=== PATIENT | male | born 1945 | race Caucasian/White ===

== ENCOUNTER → 2018-04-09 11:52 | Outpatient (CLI) | payer MEDICARE, OTHER, SELFPAY ==
[2018-04-09 13:16] LABS: PSA,Total - Annual Screen 3.54 ng/mL (0.00-4.00)
== END ==
PROVIDERS: Family Provider Internal Medicine; PCP Internal Medicine; Referring Provider Radiology Radiation Oncology; Visit Provider Radiology Radiation Oncology
DX: Z12.5 Encounter for screening for malignant neoplasm of prostate (principal); Z85.46 Personal history of malignant neoplasm of prostate
CPT/HCPCS: 36415; 84153; G0103

== ENCOUNTER → 2018-08-27 08:51 | Outpatient (CLI) | payer MEDICARE, OTHER, SELFPAY ==
--- NOTE | 2018-08-27 08:54 | US_ITS ---
STUDY: THYROID ULTRASOUND REASON FOR EXAM: Male, 73 years old. Nodules. TECHNIQUE: Ultrasound evaluation of the thyroid was performed with real-time and static fernandez-scale imaging. COMPARISON: 06/17/2017. FINDINGS: RIGHT LOBE: The right lobe of the thyroid gland measures 3.5 x 1.2 x 2.2 cm. There is a heterogeneous echotexture. Solid mildly hypoechoic nodule with hypoechoic rim measuring 0.9 x 0.8 x 0.7 cm. Small anechoic cyst measuring 0.5 x 0.4 x 0.3 cm. Small solid hypoechoic nodule measuring 0.5 x 0.4 x 0.4 cm. LEFT LOBE: The left lobe of the thyroid gland measures 4.7 x 2.1 x 2.1 cm. There is a heterogeneous echotexture. 2 solid nodules measuring 1.2 x 1.0 x 0.7 cm, 0.8 x 1.0 x 0.6 cm. Small anechoic cyst measuring 0.3 x 0.4 x 0.2 cm. ISTHMUS: The isthmus measures 0.6 cm. . US/Thyroid IMPRESSION: 1. 2 solid nodules in each thyroid lobe. 2. Small anechoic cyst in each thyroid lobe. 3. Allowing for differences in technique, these are most likely unchanged. They are too small for ultrasound-guided FNA. 4. No significant interval change when compared to 06/17/2017. Electronically Signed: Ren Couch MD at 14:34 EST , Service support ,
== END ==
PROVIDERS: Family Provider Internal Medicine; PCP Internal Medicine; Referring Provider Internal Medicine; Visit Provider Internal Medicine
DX: E04.1 Nontoxic single thyroid nodule (principal)
CPT/HCPCS: 76536

== ENCOUNTER → 2019-05-03 11:09 | Outpatient (CLI) | payer MEDICARE, OTHER, SELFPAY ==
[2019-03-30 14:25] VITALS: BMI 34.9
[2019-05-03 12:30] LABS: PSA,Total- Diagnostic 4.79 ng/mL (0.0-4.0)
== END ==
PROVIDERS: Family Provider Internal Medicine; PCP Internal Medicine; Referring Provider Urology; Visit Provider Urology
DX: C61 Malignant neoplasm of prostate (principal); R97.20 Elevated prostate specific antigen [PSA]
CPT/HCPCS: 36415; 84153

== ENCOUNTER → 2019-07-16 15:44 | Outpatient (CLI) | payer MEDICARE, OTHER, SELFPAY ==
[2019-03-30 14:25] VITALS: BMI 34.9
[2019-06-29 16:01] VITALS: BMI 34.9
[2019-07-12 13:04] LABS: Creatinine, Serum 1.66 mg/dL (0.70-1.30); EST Glomerular Filtration Rate 43 mL/min (>60); Est Glom Filt Rate - Afr Amer 52 mL/min (>60)
--- NOTE | 2019-07-16 15:48 | CT_ITS ---
STUDY: CT ABDOMEN AND PELVIS WITH CONTRAST REASON FOR EXAM: Male, 73 years old. HX-PROSTATE CA 7 YRS AGO, NOW HAS ELEV PSA, DB, HTN, PREV LT KIDNEY CA WITH LT NEPHRECTOMY, BLADDER CA WITH TUMOR REMOVAL, HAD BRACHYTHERAPY FOR PROSTATE CA, HAD ONE TIME CHEMO INJECTION FOR BLADDER CA RADIATION DOSAGE (If Supplied By Facility): CTDIvol = ( 28.72 ) mGy, DLP = ( 1946.44 ) mGycm TECHNIQUE: Transaxial images were obtained from the dome of the diaphragm to the symphysis pubis with oral contrast. IV 75mL Isovue-300 AND ORAL CONTRAST was administered. Sagittal and coronal images were reconstructed. Individualized dose optimization techniques were used for this CT. COMPARISON: 01/30/2016 FINDINGS: The visualized lung bases are unremarkable. The visualized portions of the heart are within normal limits. Normal liver. There are surgical clips in the gallbladder fossa consistent with a prior cholecystectomy. Normal spleen. Normal pancreas. Normal bilateral adrenal glands. Normal right kidney. Left kidney is absent. Normal visualized stomach. Normal small intestine. There are multiple colonic diverticula consistent with diverticulosis. The appendix is visualized and appears normal. There is diffuse atherosclerotic calcification of the abdominal aorta with elongation and tortuosity, but without a demonstrated aneurysm. Normal inferior vena cava. Normal retroperitoneum. Nondistended urinary bladder. There are metallic implants in the prostate gland. No periprostatic mass/adenopathy. Normal abdominal wall. There are diffuse degenerative changes of the visualized lumbar spine. CT/Abdomen/Pelvis WITH Contrast IMPRESSION: 1. Trace bilateral pleural effusions, new. 2. No intra-abdominal/pelvic mass/adenopathy. 3. Cholecystectomy. 4. Metallic implants in the prostate gland. 5. Diverticulosis without evidence of diverticulitis. Electronically Signed: Parminder Vu MD ([place]) at 16:56 EST , Service support ,
--- NOTE | 2019-07-16 15:49 | CT_ITS ---
STUDY: CT CHEST WITH CONTRAST REASON FOR EXAM: Male, 73 years old. HX-PROSTATE CA 7 YRS AGO, NOW HAS ELEV PSA, DB, HTN, PREV LT KIDNEY CA WITH LT NEPHRECTOMY, BLADDER CA WITH TUMOR REMOVAL, HAD BRACHYTHERAPY FOR PROSTATE CA, HAD ONE TIME CHEMO INJECTION FOR BLADDER CA RADIATION DOSAGE (If Supplied By Facility): CTDIvol = ( 28.72 ) mGy, DLP = ( 1946.44 ) mGycm TECHNIQUE: Transaxial imaging was performed following intravenous administration of IV 100mL Isovue-300. Multiplanar coronal and sagittal images were reformatted. Individualized dose optimization techniques were used for this CT. COMPARISON: None. FINDINGS: No pulmonary nodule or mass. Benign calcified granuloma in the left upper lobe. Mild centrilobular emphysematous changes particularly of the upper lung zones. There are small bilateral pleural effusions. Normal heart and pericardium. There are calcifications of the coronary arteries. Mildly enlarged lymph nodes of the middle mediastinum identified. Station 7 subcarinal lymph node measures 1.3 cm in short axis. Normal hilar regions. Normal enhanced pulmonary arteries. There is atherosclerotic calcification of the aortic arch with tortuosity and elongation of the aortic arch and descending thoracic aorta. There are multi-level degenerative changes of the thoracic spine and shoulders. Upper abdomen described on abdomen/pelvis CT report. CT/Chest WITH Contrast IMPRESSION: 1. No pulmonary nodule/mass. 2. Mild middle mediastinal adenopathy measuring up to 1.3 cm in short axis. Electronically Signed: Parminder Vu MD ([place]) at 16:59 EST , Service support ,
== END ==
PROVIDERS: Family Provider Internal Medicine; PCP Internal Medicine; Referring Provider Radiology Radiation Oncology; Visit Provider Radiology Radiation Oncology
DX: C61 Malignant neoplasm of prostate (principal); R97.21 Rising PSA following treatment for malignant neoplasm of prostate; Z01.818 Encounter for other preprocedural examination
CPT/HCPCS: 36415; 71260; 74177; 82565; Q9967

== ENCOUNTER → 2019-07-20 10:05 | Outpatient (CLI) | payer MEDICARE, OTHER, SELFPAY ==
[2019-03-30 14:25] VITALS: BMI 34.9
[2019-06-29 16:01] VITALS: BMI 34.9
--- NOTE | 2019-07-20 10:06 | NM_ITS ---
CLINICAL: 73-year-old male with history of carcinoma of the prostate. WHOLE BODY 99m Tc MDP RADIONUCLIDE BONE SCINTIGRAPHY COMPARISON: CT of the chest, abdomen and pelvis reports 07/16/2019 FINDINGS: Following the intravenous administration of 20.0 mCi of 99m Tc MDP, whole body bone images reveal: 1. Increased radiopharmaceutical concentration is identified in the acromioclavicular and sternoclavicular compartments of both shoulders, lower cervical spine posteriorly on the left and right, the seventh and 11th thoracic vertebra posteriorly on the right, fourth-fifth lumbar vertebra and sacrum, bilateral wrist articulations, right-left knees, ankles bilaterally. 2. The remaining skeletal structures are scintigraphically unremarkable with normal-appearing renal images and urinary bladder activity identified. NM/Bone Scan Whole Body IMPRESSION: 1. The increased radiopharmaceutical concentration identified in the bilateral shoulders, cervical, thoracic and lumbar spine, sacrum, both wrist articulations, right and left knees, ankles bilaterally is most consistent with degenerative arthritis. 2. There is no definitive typical scintigraphic evidence of skeletal metastatic disease on the current examination. Electronically Signed: Jewel Zamora DO at 8:57 EST Tel , Service support ,
== END ==
PROVIDERS: Family Provider Internal Medicine; PCP Internal Medicine; Referring Provider Radiology Radiation Oncology; Visit Provider Radiology Radiation Oncology
DX: C61 Malignant neoplasm of prostate (principal); R97.21 Rising PSA following treatment for malignant neoplasm of prostate
CPT/HCPCS: 78306

== ENCOUNTER → 2019-09-07 10:05 | Outpatient (CLI) | payer MEDICARE, OTHER, SELFPAY ==
[2019-06-29 16:01] VITALS: BMI 34.9
[2019-09-07 12:16] LABS: Absolute Lymphocyte Count 1.44 X10^3/uL (0.83-4.51); Absolute Neutrophil Count 3.4 X10^3/uL (2.0-7.7); Basophil# 0.05 X10^3/uL; Basophil% 0.9 % (0-1); Eosinophil# 0.17 X10^3/uL; Hematocrit 40.7 % (40-54); Hemoglobin 12.5 g/dL (13.0-16.5); Lymphocyte # 1.44 X10^3/ul (4.0); Lymphocyte % 25.4 % (19-41); Mean Corp Hgb Conc 30.7 g/dL (32-36); Mean Corpuscular Hgb 26.9 pg (27.0-32.0); Mean Corpuscular Volume 87.7 fL (80-94); Mean Platelet Vol. 11.6 fl (6.2-12.0); Monocyte# 0.56 X10^3/uL; Monocyte% 9.9 % (0-10); NRBC Flagged by Analyzer 0 % (0-5); Neutrophil # 3.44 X10^3/uL (2.7-7.7); Neutrophil % 60.4 % (47-70); Platelet Count 162 K/mm3 (150-450); RBC Distribution Width CV 16.5 % (11.6-14.6); RBC Distribution Width SD 52.3 fl (35.1-43.9); Red Blood Count 4.64 M/mm3 (4.6-6.2); White Blood Count 5.7 K/mm3 (4.4-11.0)
[2019-09-07 12:35] LABS: Hemoglobin A1c 6.3 % (4.2-6.3)
[2019-09-07 12:39] LABS: ALB/GLOB Ratio 0.9 RATIO (0.9-2.4); AST(SGOT) 21 U/L (15-37); Alanine Aminotransfer ALT/SGPT 32 U/L (16-61); Albumin, Serum 3.7 g/dL (3.2-5.0); Alkaline Phosphatase 72 U/L (45-117); Anion Gap 7 (5-15); BUN 28 mg/dL (7-18); BUN/Creat Ratio 15.8 RATIO (10-20); Chloride 107 mmol/L (98-107); Cholesterol 105 mg/dL (200); Creatinine, Serum 1.77 mg/dL (0.70-1.30); EST Glomerular Filtration Rate 40 mL/min (>60); Est Glom Filt Rate - Afr Amer 49 mL/min (>60); Glucose 119 mg/dL (74-106); High Density Lipoprotein 33 mg/dL; Protein, Total 7.7 g/dL (6.4-8.2); Sodium Level 139 mmol/L (136-145); Triglycerides 175 mg/dL; Very Low Density Lipoprotein 35 mg/dL (5-40)
[2019-09-07 12:53] LABS: Microalbumin:Creatinine Ratio 633.7 mg/g CRE (<30 mg/g CRE)
== END ==
PROVIDERS: PCP Internal Medicine; Referring Provider Internal Medicine; Visit Provider Internal Medicine
DX: I10 Essential (primary) hypertension (principal); E11.9 Type 2 diabetes mellitus without complications; C64.9 Malignant neoplasm of unspecified kidney, except renal pelvis
CPT/HCPCS: 36415; 80053; 80061; 82043; 82570; 83036; 85025

== ENCOUNTER → 2019-10-19 15:38 | Outpatient (CLI) | payer MEDICARE, OTHER, SELFPAY ==
[2019-10-19 09:05] VITALS: BMI 34.9
[2019-10-19 16:26] LABS: Absolute Lymphocyte Count 1.46 X10^3/uL (0.83-4.51); Basophil# 0.04 X10^3/uL; Basophil% 0.6 % (0-1); Eosinophil# 0.25 X10^3/uL; Hematocrit 43.7 % (40-54); Hemoglobin 13.6 g/dL (13.0-16.5); Lymphocyte # 1.46 X10^3/ul (4.0); Lymphocyte % 23.3 % (19-41); Mean Corp Hgb Conc 31.1 g/dL (32-36); Mean Corpuscular Hgb 26.7 pg (27.0-32.0); Mean Corpuscular Volume 85.9 fL (80-94); Monocyte# 0.54 X10^3/uL; Monocyte% 8.6 % (0-10); NRBC Flagged by Analyzer 0 % (0-5); Neutrophil # 3.95 X10^3/uL (2.7-7.7); Platelet Count 136 K/mm3 (150-450); RBC Distribution Width CV 16.1 % (11.6-14.6); RBC Distribution Width SD 50.3 fl (35.1-43.9); Red Blood Count 5.09 M/mm3 (4.6-6.2); White Blood Count 6.3 K/mm3 (4.4-11.0)
[2019-10-19 16:38] LABS: Anion Gap 6 (5-15); BUN 28 mg/dL (7-18); BUN/Creat Ratio 16.9 RATIO (10-20); Calcium,Total 8.9 mg/dL (8.5-10.1); Chloride 110 mmol/L (98-107); Creatinine, Serum 1.66 mg/dL (0.70-1.30); EST Glomerular Filtration Rate 43 mL/min (>60); Est Glom Filt Rate - Afr Amer 52 mL/min (>60); Glucose 109 mg/dL (74-106); Potassium 4.6 mmol/L (3.5-5.1); Sodium Level 139 mmol/L (136-145)
== END ==
PROVIDERS: PCP Internal Medicine; Referring Provider Internal Medicine; Visit Provider Internal Medicine
DX: C64.9 Malignant neoplasm of unspecified kidney, except renal pelvis (principal); N18.3 Chronic kidney disease, stage 3 (moderate)
CPT/HCPCS: 80048; 85025

== ENCOUNTER → 2019-11-08 11:53 | Outpatient (CLI) | payer MEDICARE, OTHER, SELFPAY ==
[2019-10-19 16:44] VITALS: BMI 34.9
[2019-11-08 13:32] LABS: PSA,Total- Diagnostic 5.45 ng/mL (0.0-4.0)
== END ==
PROVIDERS: PCP Internal Medicine; Referring Provider Urology; Visit Provider Urology
DX: R97.20 Elevated prostate specific antigen [PSA] (principal)
CPT/HCPCS: 36415; 84153

== ENCOUNTER → 2019-11-25 08:00 | Outpatient (CLI) | payer MEDICARE, OTHER, SELFPAY ==
[2019-10-19 16:44] VITALS: BMI 34.9
--- NOTE | 2019-11-25 | IMM_PTH ---
PATIENT: SHERRELL GENAO LOC: [facility] U#:[id number] AGE/SX: 79/M ROOM: RE11/25/[address]: Dr. Burak Borja MD : 1945 BED: DIS: SPEC #: [id number] RECD: 11/29/19 09:54 STATUS: OSMAR REQ #: [id number] KIKO: 11/25/19 00:[address]: Burak Borja DEPT: IMMUNOHISTOCHEMISTRY RECD BY: Deja Batres ENTERED: 11/29/19 09:57 SP TYPE: IMMUNO OTHR DR: Dr. Josh Schreiber MD Tissues: A - PROSTATE RIGHT B - PROSTATE RIGHT C - PROSTATE RIGHT D - PROSTATE LEFT E - PROSTATE LEFT Procedures: CK8 (add) 34BE12 (add) Pankeratin (initial) Pankeratin (add) P40 (add) PHYSICIAN & INSTITUTION [place] [id number] SPECIMEN INFORMATION: Tissue Source: A - Right apex, B - Right mid, C - Right base, D - Left apex, E - Left mid, Clinical Info: Elevated PSA Specimen Number: [id number] CPT code: 81087, 90809 x19 METHODOLOGY: Deparaffinized sections of prefer/formalin-fixed tissue or PAP/DQ stained slides are incubated with monoclonal/polyclonal antibodies/oligonucleotide probes. Localization is made via biotin free immunoperoxidase method. Appropriate controls are performed and reacted as expected. Results on target cell population are indicated in the following table: RESULTS: ANTIBODY / CLONE RESULT Block A AE1-3 (AE1/AE3/PCK26) positive CK8 (89rvquP74) positive 34BE12 (34BE12) positive P40 (BC28) positive Block B AE1-3 (AE1/AE3/PCK26) positive CK8 (50gvvqV18) positive 34BE12 (34BE12) positive P40 (BC28) positive Block C AE1-3 (AE1/AE3/PCK26) positive CK8 (96elcaL02) positive 34BE12 (34BE12) positive P40 (BC28) positive Block D AE1-3 (AE1/AE3/PCK26) positive CK8 (79bdqtA83) positive 34BE12 (34BE12) positive P40 (BC28) positive Block E AE1-3 (AE1/AE3/PCK26) positive CK8 (67iblqC83) positive 34BE12 (34BE12) positive P40 (BC28) positive These tests were developed and their performance characteristics determined by [facility]. They may not have been cleared or approved by the U.S. Food and Drug Administration. The FDA has determined that such clearance or approval is not necessary. The above immunohistochemical/dualISH markers are ordered and reviewed by the Pathologist. INTERPRETATION: A. Right prostate, apex, core biopsy: Negative for carcinoma. B. Right prostate, mid, core biopsy: Negative for carcinoma. C. Right prostate, base, core biopsy: Negative for carcinoma. D. Left prostate, apex, core biopsy: Negative for carcinoma. E. Left prostate, mid, core biopsy: Negative for carcinoma. SJ:regis 11/30/19
--- NOTE | 2019-11-25 | PROSBIL_PTH ---
PATIENT: SHERRELL GENAO LOC: [facility] U#:[id number] AGE/SX: 79/M ROOM: RE11/25/[address]: Dr. Burak Borja MD : 1945 BED: DIS: SPEC #: [id number] RECD: 11/25/19 17:54 STATUS: OSMAR RENikko #: [id number] KIKO: 11/25/19 00:[address]: Burak Borja DEPT: SURGICAL PATHOLOGY RECD BY: Chapincito Carlson ENTERED: 11/26/19 11:54 SP TYPE: PROST BX BRENDA DR: Dr. Josh Schreiber MD Tissues: A - PROSTATE RIGHT B - PROSTATE RIGHT C - PROSTATE RIGHT D - PROSTATE LEFT E - PROSTATE LEFT F - PROSTATE LEFT Procedures: PROSTATE BX HEADER OPERATION: Prostate biopsy PRE-OP DIAGNOSIS: Elevated PSA TISSUE SUBMITTED: A - Right apex, B - Right mid, C - Right base, D - Left apex, E - Left mid, F - Left base MICROSCOPIC DIAGNOSIS A. Right prostate, apex, core biopsy: Benign prostatic tissue, predominantly consisting of stromal tissue with hyalinization and reactive changes. Negative for malignancy. See comment. B. Right prostate, mid, core biopsy: Benign prostatic tissue, predominantly consisting of stromal tissue with hyalinization and reactive changes.. Negative for malignancy. See comment. C. Right prostate, base, core biopsy: Benign prostatic tissue, predominantly consisting of stromal tissue with hyalinization and reactive changes. Negative for malignancy. See comment. D. Left prostate, apex, core biopsy: Benign prostatic tissue, predominantly consisting of stromal tissue with hyalinization and reactive changes. Negative for malignancy. See comment. E. Left prostate, mid, core biopsy: Benign prostatic tissue, predominantly consisting of stromal tissue with hyalinization and reactive changes. Negative for malignancy. See comment. F. Left prostate, base, core biopsy: Benign prostatic tissue, entirely consists of stromal tissue with hyalinization. SJ:regis 11/29/19 COMMENT A-E. Immunohistochemistry ([id number]) supports the above diagnosis. The findings may represent status post treatment related effects. Please make reference to previous specimen ([id number]) right prostate, apex, core biopsy with diagnosis of prostatic adenocarcinoma. Please make reference to previous specimens ([id number]) urinary bladder tumor, TUR with diagnosis of papillary urothelial carcinoma and ([id number]) left kidney, radical nephrectomy with diagnosis of renal cell carcinoma, unclassified. Case has been reviewed in consultation with Dr. Jackson who concurs with the above diagnosis. IDC:AM MICROSCOPIC DESCRIPTION Slides are reviewed. GROSS DESCRIPTION A - Received is one container designated prostate, right apex. The specimen consists of one elongated fragment of light christine-white soft tissue measuring 1.3 cm in length and 0.1 cm in diameter. The specimen is totally submitted in one cassette. B - Received is one container designated prostate, right mid. The specimen consists of two elongated fragments of light christine-white soft tissue each measuring 1.5 cm in length and 0.1 cm in diameter. The specimen is totally submitted in one cassette. C - Received is one container designated prostate, right base. The specimen consists of three elongated fragments of light christine-white soft tissue measuring 0.5 to 1.5 cm in length and 0.1 cm in diameter. The specimen is totally submitted in one cassette. D - Received is one container designated prostate, left apex. The specimen consists of one elongated fragment of light christine-white soft tissue measuring 1.8 cm in length and 0.1 cm in diameter. The specimen is totally submitted in one cassette. E - Received is one container designated prostate, left mid. The specimen consists of two elongated fragments of light christine-white soft tissue measuring 1.5 and 2 cm in length and 0.1 cm in diameter. The specimen is totally submitted in one cassette. F - Received is one container designated prostate, left base. The specimen consists of one elongated fragment of light christine-white soft tissue measuring 1.5 cm in length and 0.1 cm in diameter. The specimen is totally submitted in one cassette. / LUIS:regis 11/26/19 TC:5 CPT: G0146
== END ==
PROVIDERS: PCP Internal Medicine; Referring Provider Urology; Visit Provider Urology
DX: R97.20 Elevated prostate specific antigen [PSA] (principal)
CPT/HCPCS: 88305; 88341; 88342; G0416

== ENCOUNTER → 2019-12-21 09:02 | Outpatient (CLI) | payer MEDICARE, OTHER, SELFPAY ==
[2019-12-21 08:35] VITALS: BMI 34.9
[2019-12-21 12:33] LABS: Hematocrit 47.5 % (40-54); Hemoglobin 14.9 g/dL (13.0-16.5); Mean Corp Hgb Conc 31.4 g/dL (32-36); Mean Corpuscular Hgb 27.4 pg (27.0-32.0); Mean Corpuscular Volume 87.3 fL (80-94); Platelet Count 134 K/mm3 (150-450); RBC Distribution Width CV 16.7 % (11.6-14.6); RBC Distribution Width SD 52.9 fl (35.1-43.9); Red Blood Count 5.44 M/mm3 (4.6-6.2)
[2019-12-21 12:46] LABS: Anion Gap 7 (5-15); BUN 30 mg/dL (7-18); BUN/Creat Ratio 14.6 RATIO (10-20); Calcium,Total 8.8 mg/dL (8.5-10.1); Chloride 108 mmol/L (98-107); Creatinine, Serum 2.05 mg/dL (0.70-1.30); EST Glomerular Filtration Rate 34 mL/min (>60); Est Glom Filt Rate - Afr Amer 41 mL/min (>60); Glucose 147 mg/dL (74-106); Potassium 4.9 mmol/L (3.5-5.1); Sodium Level 140 mmol/L (136-145)
[2019-12-21 13:35] LABS: Microalbumin:Creatinine Ratio 381.3 mg/g CRE (<30 mg/g CRE)
== END ==
PROVIDERS: PCP Internal Medicine; Referring Provider Nurse Practitioner Family; Visit Provider Nurse Practitioner Family
DX: C61 Malignant neoplasm of prostate (principal); E11.9 Type 2 diabetes mellitus without complications; I10 Essential (primary) hypertension
CPT/HCPCS: 36415; 80048; 82043; 82570; 85027

== ENCOUNTER → 2020-02-15 07:45 | Outpatient (CLI) | payer MEDICARE, OTHER, SELFPAY ==
[2019-12-21 08:35] VITALS: BMI 34.9
--- NOTE | 2020-02-15 07:47 | US_ITS ---
STUDY: RENAL ULTRASOUND - COMPLETE REASON FOR EXAM: Male, 74 years old. CKD - S/P LT NEPHRECTOMY 7 YRS AGO D/T CA TECHNIQUE: Ultrasound evaluation of the kidneys was performed with real-time and static key-scale imaging. COMPARISON: None. FINDINGS: RIGHT KIDNEY: Normal location of the right kidney, which is normal in size. The right kidney measures 12.9 cm x 6.1 cm x 5.2 cm. There is a normal cortex of the right kidney. The renal cortex measures 1.6 cm. There is no right renal mass or cyst. There are no right renal calculi. There is no right hydronephrosis. DISTAL RIGHT URETER: There is non-visualization of the distal right ureter. There is no demonstrated right ureterovesical junction calculus. There is no demonstrated right ureteral jet. LEFT KIDNEY: The patient is status post left nephrectomy. BLADDER: The distended urinary bladder has a volume of 101 ml. US/Kidney and Bladder IMPRESSION: Status post left nephrectomy. The right kidney is unremarkable. Electronically Signed: Rivera Peters, at 10:53 EDT , Service support ,
== END ==
PROVIDERS: PCP Internal Medicine; Referring Provider Internal Medicine; Visit Provider Internal Medicine
DX: N18.3 Chronic kidney disease, stage 3 (moderate) (principal)
CPT/HCPCS: 76770

== ENCOUNTER → 2020-02-28 15:53 | Outpatient (CLI) | payer MEDICARE, OTHER, SELFPAY ==
[2019-12-21 08:35] VITALS: BMI 34.9
[2020-02-28 15:57] LABS: Bacteria 0 SEEN /hpf (None Seen); Mucous, Urine 0 SEEN /hpf (<or=2+); Red Blood Cells-Urine 0 SEEN /hpf (0-5); Squamous Epithelial Cells - UA 0 SEEN /hpf (0-5); White Blood Cells 0 SEEN /hpf (0-5)
[2020-02-28 17:08] LABS: Color, Urine Yellow (Yellow); Glucose, Dipstick Normal (Normal); Ketone-Dipstick Negative (Negative); Leukocyte Esterase-Dipstick Negative /ul (Negative); Nitrite-Dipstick Negative (Negative); Occult Blood-Urine 25 /ul (Negative); Protein-Dipstick 100 mg/dl (Negative); Urine Bilirubin Dipstick Negative (Negative); Urine Clarity Clear (Clear); Urine Urobilinogen 1 mg/dl (Normal)
[2020-02-28 17:09] LABS: Anion Gap 6 (5-15); BUN 28 mg/dL (7-18); BUN/Creat Ratio 15.6 RATIO (10-20); Chloride 107 mmol/L (98-107); EST Glomerular Filtration Rate 39 mL/min (>60); Est Glom Filt Rate - Afr Amer 48 mL/min (>60); Glucose 137 mg/dL (74-106); Phosphorus 3.9 mg/dL (2.5-4.9); Potassium 4.1 mmol/L (3.5-5.1); Sodium Level 140 mmol/L (136-145)
[2020-02-28 17:18] LABS: Protein, Urine (Random) 169.9 mg/dL (<11.9); Protein:Creat Ratio 1075 mg/g CRE (0-200)
[2020-02-28 17:20] LABS: Vitamin D,25 Hydroxy 47.2 ng/mL
[2020-02-29 00:19] LABS: PTHIN 39.5 pg/mL (18.4-80.1)
[2020-03-02 14:08] LABS: PROEL- A/G Ratio 1.1 (0.7-1.7); PROEL- Albumin 3.6 g/dL (2.9-4.4); PROEL- Alpha-1 Globulin 0.3 g/dL (0.0-0.4); PROEL- Alpha-2 Globulin 0.9 g/dL (0.4-1.0); PROEL- Gamma Globulin 1.1 g/dL (0.4-1.8); PROEL- Globulin, Total 3.3 g/dL (2.2-3.9); PROEL- TOTAL PROTEIN 6.9 g/dL (6.0-8.5); PROELU- Alpha-1-Globulin,Ur 1.9 % (.); PROELU- Alpha-2-Globulin,Ur 9.2 % (.); PROELU- Beta Globulin, Ur 12.1 % (.); PROELU- Gamma Globulin, Ur 9.8 % (.); Total Protein, Ur 164.7 mg/dL (Not Estab.)
== END ==
PROVIDERS: PCP Internal Medicine; Visit Provider Internal Medicine
DX: N18.3 Chronic kidney disease, stage 3 (moderate) (principal)
CPT/HCPCS: 36415; 80048; 81001; 82306; 82570; 83970; 84100; 84156; 84165; 84166

== ENCOUNTER → 2020-03-01 09:26 | Outpatient (CLI) | payer MEDICARE, OTHER, SELFPAY ==
[2019-12-21 08:35] VITALS: BMI 34.9
[2020-03-01 13:13] LABS: 24HR. UA Prot. Total Volume 1225 mL; Creat.Clear Total Volume 1225 mL; Creatinine Clearance 65 ml/min (100-200); Creatinine Serum Creat 1.8 mg/dL (0.8-1.3); EST Glomerular Filtration Rate 39 mL/min (>60); Est Glom Filt Rate - Afr Amer 48 mL/min (>60)
== END ==
PROVIDERS: Referring Provider Internal Medicine; Visit Provider Internal Medicine
DX: N18.3 Chronic kidney disease, stage 3 (moderate) (principal)
CPT/HCPCS: 81050; 82575; 84156

== ENCOUNTER → 2020-03-22 10:13 | Outpatient (CLI) | payer MEDICARE, OTHER, SELFPAY ==
[2020-03-22 09:56] VITALS: BMI 34.9
[2020-03-22 12:37] LABS: BNP,B-Type NATRIURETIC PEPTIDE 201.8 pg/mL (0-100)
[2020-03-22 18:15] LABS: Xtra Tube EP Lab EXTRA TUBE
[2020-03-22 18:17] LABS: Xtra Tube EP Lab EXTRA TUBE
== END ==
PROVIDERS: PCP Internal Medicine; Referring Provider Internal Medicine; Visit Provider Internal Medicine
DX: R06.02 Shortness of breath (principal)
CPT/HCPCS: 36415; 83880

== ENCOUNTER → 2020-03-30 12:51 | Outpatient (CLI) | payer MEDICARE, OTHER, SELFPAY ==
[2020-03-22 09:56] VITALS: BMI 34.9
--- NOTE | 2020-03-30 12:51 | EKG12_ITS ---
Test Reason : SOB Blood Pressure : / mmHG Vent. Rate : 099 BPM Atrial Rate : 099 BPM P-R Int : 184 ms QRS Dur : 096 ms QT Int : 346 ms P-R-T Axes : 045 014 115 degrees QTc Int : 444 ms Normal sinus rhythm Nonspecific T wave abnormality Abnormal ECG Confirmed by AVINASH DODGE, ANDREA ([id number]), video effects editor JOSEPH FLORES ([id number]) on 04/03/2020 1:20:18 PM Referred By: Josh Schreiber Confirmed By:MIGUEL ANGEL DA SILVA MD
--- NOTE | 2020-03-30 12:51 | ECHOD_ITS ---
Reason For Study: SOB Left Ventricle Mildly dilated left ventricle. The estimated ejection fraction is 35 %. Stage 3 diastolic dysfunction. There is moderate to severe global hypokinesis of the left ventricle. Right Ventricle Normal RV size. Normal systolic function. Atria The left atrium is moderately enlarged. Normal right atrium. No doppler evidence for ASD. Mitral Valve There is no mitral valve stenosis. Moderately severe (3+) mitral valve insufficiency. Tricuspid Valve There is no tricuspid stenosis. Moderate (2+) tricuspid valve insufficiency. Pulmonary artery systolic pressure is 65 mmHg. Aortic Valve Trisinus/trileaflet aortic valve. Moderate focal aortic valve thickening. Mild aortic stenosis. Trivial aortic valve insufficiency. Pulmonic Valve There is no pulmonic valvular stenosis. No pulmonic valve insufficiency. Great Vessels Normal aortic root. Pericardium/Pleural No pericardial effusion. Large left pleural effusion. MMode/2D Measurements & Calculations LVIDd: 5.9 cm IVSd: 0.88 cm LVOT diam: 2.1 cm LVIDs: 4.8 cm LVPWd: 0.90 cm LVOT area: 3.4 cm2 RVDd: 3.7 cm FS: 18.6 % Ao root diam: 3.5 cm LAV(MOD-bp): 75.4 ml EDV(MOD-sp4): 139.9 ml LAV(MOD-bp) Indexed: 35.0 ml/m2 ESV(MOD-sp4): 83.9 ml LAV(MOD-sp2): 72.4 ml EF(MOD-sp4): 40.0 % LAV(MOD-sp4): 78.8 ml EDV(MOD-sp2): 162.1 ml SV(MOD-sp4): 55.9 ml SV(MOD-sp2): 63.8 ml EF(MOD-sp2): 39.3 % LA A4 area: 24.6 cm2 LA dimension(2D): 3.9 cm RA A4 area: 17.6 cm2 Doppler Measurements & Calculations MV E max allan: 161.5 cm/sec Lat Peak E' Allan: 9.8 cm/sec Med Peak E' Alaln: 3.1 cm/sec E/E' lat: 16.4 E/E' med: 52.0 Ao V2 max: 187.3 cm/sec LV V1 max: 107.1 cm/sec SV(LVOT): 58.7 ml Ao max P.0 mmHg LV V1 max P.6 mmHg Ao V2 mean: 134.2 cm/sec LV V1 mean P.0 mmHg Ao mean P.1 mmHg LV V1 mean: 66.5 cm/sec Ao V2 VTI: 32.2 cm LV V1 VTI: 17.1 cm PETER(I,D): 1.8 cm2 PETER(V,D): 2.0 cm2 PA V2 max: 91.1 cm/sec TR max allan: 365.8 cm/sec TR max P.8 mmHg Interpretation Summary The estimated ejection fraction is 35 %. Stage 3 diastolic dysfunction. There is moderate to severe global hypokinesis of the left ventricle. Moderately severe (3+) mitral valve insufficiency. Moderate (2+) tricuspid valve insufficiency. Pulmonary artery systolic pressure is 65 mmHg. Trivial aortic valve insufficiency. Mild aortic stenosis. Large left pleural effusion. Ordering Physician: Josh Schreiber Referring Physician: Josh cShreiber Performed By: Suze Obrien RDCS
--- NOTE | 2020-03-30 14:17 | RAD_ITS ---
STUDY: X-RAY CHEST REASON FOR EXAM: Male, 74 years old. INCREASING SOB x1 MONTH TECHNIQUE: PA and lateral views of the chest. COMPARISON: Comparison is made with prior study dated 09/15/2014. FINDINGS: Vascular congestion. Mild increased markings at the lung bases suggestive of bibasilar atelectasis with small bilateral pleural effusions. Findings are in keeping with CHF. There is no demonstrated pleural abnormality. Normal size heart. Normal mediastinum and mary. Normal visualized pulmonary arteries. There is atherosclerotic calcification of the aortic arch with tortuosity. There are diffuse degenerative changes of the visualized thoracic spine. Normal visualized ribs, clavicles, and shoulders. The patient is status post cholecystectomy. RAD/Chest PA and Lateral IMPRESSION: Findings included with the mild degree of CHF with blunting of both costophrenic angles and bibasilar atelectasis. Electronically Signed: Rivera Peters, at 15:45 EDT , Service support ,
== END ==
PROVIDERS: PCP Internal Medicine; Referring Provider Internal Medicine; Visit Provider Internal Medicine
DX: R06.02 Shortness of breath (principal); R06.00 Dyspnea, unspecified; E11.9 Type 2 diabetes mellitus without complications; I12.9 Hypertensive chronic kidney disease with stage 1 through stage 4 chronic kidney disease, or unspecified chronic kidney disease; N18.3 Chronic kidney disease, stage 3 (moderate)
CPT/HCPCS: 71046; 93005; 93306

== ENCOUNTER → 2020-04-07 13:19 | Outpatient (CLI) | payer MEDICARE, OTHER, SELFPAY ==
[2020-03-22 09:56] VITALS: BMI 34.9
[2020-04-07 15:29] LABS: Anion Gap 7 (5-15); BUN 24 mg/dL (7-18); BUN/Creat Ratio 12.5 RATIO (10-20); Calcium,Total 8.7 mg/dL (8.5-10.1); Chloride 106 mmol/L (98-107); Creatinine, Serum 1.92 mg/dL (0.70-1.30); EST Glomerular Filtration Rate 37 mL/min (>60); Est Glom Filt Rate - Afr Amer 44 mL/min (>60); Glucose 110 mg/dL (74-106); Potassium 4.4 mmol/L (3.5-5.1); Sodium Level 141 mmol/L (136-145)
== END ==
PROVIDERS: PCP Internal Medicine; Referring Provider Nurse Practitioner Family; Visit Provider Nurse Practitioner Family
DX: I10 Essential (primary) hypertension (principal)
CPT/HCPCS: 36415; 80048

== ENCOUNTER → 2020-04-19 09:20 | Outpatient (CLI) | payer MEDICARE, OTHER, SELFPAY ==
[2020-04-19 08:24] VITALS: BMI 32.3
[2020-04-19 12:25] LABS: Anion Gap 5 (5-15); BUN 35 mg/dL (7-18); BUN/Creat Ratio 17.6 RATIO (10-20); Calcium,Total 8.6 mg/dL (8.5-10.1); Chloride 105 mmol/L (98-107); Creatinine, Serum 1.99 mg/dL (0.70-1.30); EST Glomerular Filtration Rate 35 mL/min (>60); Est Glom Filt Rate - Afr Amer 42 mL/min (>60); Glucose 162 mg/dL (74-106); Potassium 4.3 mmol/L (3.5-5.1); Sodium Level 138 mmol/L (136-145)
== END ==
PROVIDERS: PCP Internal Medicine; Referring Provider Internal Medicine; Visit Provider Internal Medicine
DX: N18.30 Chronic kidney disease, stage 3 unspecified (principal)
CPT/HCPCS: 36415; 80048

== ENCOUNTER → 2020-05-25 06:03 | Outpatient (CLI) | payer MEDICARE, OTHER, SELFPAY ==
[2020-05-17 11:03] VITALS: BMI 32.3
--- NOTE | 2020-05-25 12:12 | STRESSREP ---
Stress Test Report Pharmacologic myocardial perfusion stress test. 74-year-old man with a history of a cardiomyopathy. Stress protocol: Resting EKG demonstrates normal sinus rhythm with a rate of 98 bpm normal intervals are noted resting blood pressure is 138/90 mmHg. 0.4 mg of regadenoson was infused per usual protocol followed by Intravenous saline flush injection continuous butadiene converter helper was performed. The maximum heart rate was 107 bpm which was 73% of maximum predicted heart rate the maximum workload was 1 metabolic equivalent. At rest there were no ST or T wave changes noted to suggest abnormal flow reserve at peak infusion nonspecific ST-T wave changes were noted with no meet the criteria for ischemia. No clinical angina was noted. The final blood pressure was 130/86 mmHg. Myocardial perfusion protocol. 14.7 mCi of technetium 99m sestamibi was injected at rest. 0.4 mg of regadenoson was infused per usual protocol peak infusion 44.8 mCi of technetium 99m sestamibi was injected stress images were obtained stress and rest images were reconstructed and compared in the short axis vertical long horizontal long axis. Gated images were also obtained Perfusion SPECT analysis: Review of the images demonstrate a dilated cardiac silhouette size. There is mild reduction of perfusion noted in the distal anterior wall towards the apex. The resting images demonstrate a similar pattern. No obvious ischemia is noted the above is suggestive of a cardiomyopathy. Previous distal anterior wall and apical infarct cannot be completely excluded. Gated SPECT analysis: The gated ejection fraction demonstrates a dilated ventricle with an estimated EF of 35%. Conclusion: Pharmacologic myocardial perfusion stress test with no obvious evidence of ischemia. Dilated cardiomyopathy
== END ==
PROVIDERS: PCP Internal Medicine; Referring Provider Internal Medicine Cardiovascular Disease; Visit Provider Internal Medicine Cardiovascular Disease
DX: I42.0 Dilated cardiomyopathy (principal); I50.9 Heart failure, unspecified; R06.02 Shortness of breath
CPT/HCPCS: 78452; 93017; A9500; A4216; J2785

== ENCOUNTER → 2020-05-31 11:50 | Outpatient (CLI) | payer MEDICARE, OTHER, SELFPAY ==
[2020-05-17 11:03] VITALS: BMI 32.3
[2020-05-31 14:05] LABS: PSA,Total- Diagnostic 5.73 ng/mL (0.0-4.0)
== END ==
PROVIDERS: PCP Internal Medicine; Visit Provider Urology
DX: C61 Malignant neoplasm of prostate (principal)
CPT/HCPCS: 36415; 84153

== ENCOUNTER → 2020-08-07 12:51 | Outpatient (CLI) | payer MEDICARE, OTHER, SELFPAY ==
[2020-05-17 11:03] VITALS: BMI 32.3
[2020-06-21 08:10] VITALS: BMI 32.3
--- NOTE | 2020-08-07 12:52 | ECHOD_ITS ---
Reason For Study: CHF Procedure This was a 2D Doppler, Color Flow transthoracic echocardiogram. Exam performed in department. Left Ventricle Normal LV size. The estimated ejection fraction is 25 %. Moderately severe global left ventricular systolic dysfunction. Stage 2 diastolic dysfunction. There is moderate to severe global hypokinesis of the left ventricle. Right Ventricle Normal RV size. Normal systolic function. Atria Normal left atrium. Normal right atrium. Mitral Valve Normal mitral valve. Mild (1+) eccentric mitral valve insufficiency. Tricuspid Valve Normal tricuspid valve. Unable to estimate RV systolic pressure due to inadequate jet, pulmonary artery pressure probably normal. Aortic Valve Trisinus/trileaflet aortic valve. Moderate focal aortic valve calcification. Trivial aortic valve insufficiency. Pulmonic Valve The pulmonic valve is not well visualized. Great Vessels Normal aortic root. The pulmonary artery is normal size. Normal inferior vena cava. Pericardium/Pleural No pericardial effusion. MMode/2D Measurements & Calculations LVIDd: 5.3 cm IVSd: 1.1 cm LVOT diam: 2.1 cm LVIDs: 4.6 cm LVPWd: 1.0 cm LVOT area: 3.6 cm2 FS: 12.1 % Ao root diam: 3.6 cm LAV(MOD-bp): 46.8 ml LA A4 area: 19.6 cm2 LA dimension: 3.8 cm LAV(MOD-bp) Indexed: 21.3 ml/m2 LAV(MOD-sp2): 38.0 ml LAV(MOD-sp4): 57.3 ml RA A4 area: 15.6 cm2 Time Measurements MV dec time: 0.20 sec Doppler Measurements & Calculations MV E max allan: 99.6 cm/sec Lat Peak E' Allan: 8.1 cm/sec Med Peak E' Allan: 3.0 cm/sec MV A max allan: 63.1 cm/sec E/E' lat: 12.3 E/E' med: 33.6 MV E/A: 1.6 MV V2 max: 99.0 cm/sec MV P1/2t max allan: 99.7 cm/sec Ao V2 max: 162.4 cm/sec MV max P.9 mmHg MV P1/2t: 79.3 msec Ao max P.6 mmHg MV V2 mean: 60.8 cm/sec MV dec slope: 367.9 cm/sec2 Ao V2 mean: 116.6 cm/sec MV mean P.7 mmHg Ao mean P.0 mmHg MV V2 VTI: 20.7 cm MVA(P1/2t): 2.8 cm2 Ao V2 VTI: 32.1 cm MVA(VTI): 3.2 cm2 PETER(I,D): 2.1 cm2 PETER(V,D): 2.0 cm2 LV V1 max: 93.5 cm/sec SV(LVOT): 66.4 ml PA V2 max: 88.6 cm/sec LV V1 max P.5 mmHg LV V1 mean P.9 mmHg LV V1 mean: 63.0 cm/sec LV V1 VTI: 18.7 cm Interpretation Summary Normal LV size. The estimated ejection fraction is 25 %. Moderately severe global left ventricular systolic dysfunction. Stage 2 diastolic dysfunction. Mild (1+) eccentric mitral valve insufficiency. Compared to previous study, the left ventricular systolic function has worsened.. The global longitudinal strain = -8.6% (abnormal). Ordering Physician: Dante Hilliard Referring Physician: Josh Schreiber Performed By: Albin Powell RCS
== END ==
PROVIDERS: PCP Internal Medicine; Referring Provider Internal Medicine Cardiovascular Disease; Visit Provider Internal Medicine Cardiovascular Disease
DX: R06.00 Dyspnea, unspecified (principal); I50.9 Heart failure, unspecified
CPT/HCPCS: 93306

== ENCOUNTER → 2020-08-18 17:22 | Outpatient (CLI) | payer MEDICARE, OTHER, SELFPAY ==
[2020-08-18 08:57] VITALS: BMI 33.4
== END ==
PROVIDERS: PCP Internal Medicine; Referring Provider Nurse Practitioner Family; Visit Provider Nurse Practitioner Family
DX: Z20.822 Contact with and (suspected) exposure to COVID-19 (principal)
CPT/HCPCS: 87635; C9803; U0005; U0003

== ENCOUNTER 2020-08-24 10:54 | Day surgery (SDC) | payer MEDICARE, OTHER, SELFPAY ==
[2020-06-21 08:10] VITALS: BMI 32.3
[2020-08-18 10:25] LABS: Bacteria 0 SEEN /hpf (None Seen); Mucous, Urine 0 SEEN /hpf (<or=2+); Red Blood Cells-Urine 0 SEEN /hpf (0-5); Squamous Epithelial Cells - UA 0 SEEN /hpf (0-5); White Blood Cells 0 SEEN /hpf (0-5)
[2020-08-18 11:09] LABS: Color, Urine Yellow (Yellow); Glucose, Dipstick Normal (Normal); Ketone-Dipstick Negative (Negative); Leukocyte Esterase-Dipstick Negative /ul (Negative); Nitrite-Dipstick Negative (Negative); Occult Blood-Urine 10 /ul (Negative); Protein-Dipstick 15 mg/dl (Negative); Urine Bilirubin Dipstick Negative (Negative); Urine Clarity Clear (Clear); Urine Urobilinogen Normal (Normal)
[2020-08-18 11:12] LABS: Hematocrit 45.4 % (40-54); Mean Corpuscular Hgb 28.7 pg (27.0-32.0); Mean Platelet Vol. 10.9 fl (6.2-12.0); Platelet Count 112 K/mm3 (150-450); RBC Distribution Width CV 16.8 % (11.6-14.6); RBC Distribution Width SD 52.6 fl (35.1-43.9); Red Blood Count 5.22 M/mm3 (4.6-6.2); White Blood Count 6.2 K/mm3 (4.4-11.0)
[2020-08-18 11:20] LABS: Prothrombin Time (Protime)PT. 12.6 SECONDS (11.7-14.9)
[2020-08-18 11:48] LABS: Anion Gap 5 (5-15); BUN 35 mg/dL (7-18); BUN/Creat Ratio 16.4 RATIO (10-20); Calcium,Total 8.6 mg/dL (8.5-10.1); Chloride 106 mmol/L (98-107); Creatinine, Serum 2.13 mg/dL (0.70-1.30); EST Glomerular Filtration Rate 32 mL/min (>60); Est Glom Filt Rate - Afr Amer 39 mL/min (>60); Glucose 194 mg/dL (74-106); Potassium 4.3 mmol/L (3.5-5.1); Sodium Level 140 mmol/L (136-145)
[2020-08-23 09:28] VITALS: BMI 33.4
[2020-08-24] VITALS (13 sets, daily range): BP systolic 102–142; BP diastolic 76–94; PULSE 76–91; RESP 16–18; TEMP 36.8–37.2; O2SAT 92–97
--- NOTE | 2020-08-24 09:37 | PN_ITS ---
Progress Note A SDM interaction occurred at this visit using an SDM tool prior to initial implant of ICD. This occurred during recent office visit. Procedure Criteria Procedure Type: Elective COVID Risk Discussion: The surgeon/proceduralist and patient have discussed in detail the risk of ex posure to and/or potential harm posed by the COVID-19 virus with having a surgery/procedure at this time versus the risk of delaying the surgery/procedure. It is not possible to know either the risk of delaying the surgery or procedure or chance of getting an infection with perfect accuracy, but a joint decision was made between the patient and the surgeon/proceduralist to proceed at this time with the scheduled surgery/procedure as indicated on the consent form.
--- NOTE | 2020-08-24 10:36 | HP_ITS ---
HPI HPI History of Present Illness Surgical H&P: Yes Details: Pleasant 75-year-old man with a history of hypertension, hyperlipidemia, chronic kidney disease, history of left nephrectomy, prostate carcinoma and bladder carcinoma. An echocardiogram performed demonstrated global reduction in left ventricular ejection fraction. I did review the above and it was noted to be mildly dilated with an estimated ejection fraction of approximately 30% with left atrial dilatation 2-3+ mitral regurgitation and pulmonary artery systolic pressure in the mid 60s. He also had a small pericardial as well as pleural effusion. He did have a CAT scan of his chest in July 2019 which demonstrated atherosclerotic calcification of the arch and calcifications of the coronary artery also noted. He has had no dizziness or diaphoresis no near syncope or syncope. He was put on Lasix as well as an ARB and says that he has been doing somewhat better. He was also put on a beta- ken and this has been titrated to the maximum level. He is breathing has improved significantly he has no orthopnea. He only has some dyspnea on exertion. As you remember his creatinine was elevated at 1.99. He denies chest, arm, jaw, or neck discomfort. His exercise tolerance is stable. He denies symptoms of CHF, palpitations, lightheadedness, dizziness, near syncope, or syncopal episodes. He denies edema or claudication issues. He denies orthopnea, PND, fever, chills, blood in urine, blood in stool, myalgia, or unexplainable fatigue. 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 [Ecotrin] 81 mg PO DAILY@0800 02/09/16 [History Confirmed 08/18/20] cholecalciferol (vitamin D3) 125 mcg (5,000 unit) capsule 5,000 unit PO DAILY 09/11/19 [History Confirmed 08/18/20] vitamins A,C,J-lotz-ukhofa 14,320 unit-226 mg-200 unit capsule 1 cap PO BID 03/24/19 [History Confirmed 08/18/20] exenatide microspheres 2 mg/0.85 mL subcutaneous auto-injector 2 mg SC Q7D 90 Days #11.05 ml 03/03/20 [Rx Confirmed 08/18/20] losartan 25 mg tablet 25 mg PO DAILY #90 tab 05/17/20 [Rx Confirmed 08/18/20] furosemide 40 mg tablet 40 mg PO DAILY #90 tab 06/05/20 [Rx Confirmed 08/18/20] carvedilol 25 mg tablet 25 mg PO BID tab 06/21/20 [History Confirmed 08/18/20] hydrocortisone 2.5 % topical cream 1 applic TOPICAL BID PRN #454 g 06/21/20 [Rx Confirmed 08/18/20] simvastatin 20 mg tablet 20 mg PO QHS #90 tab 06/21/20 [Rx Confirmed 08/18/20] allopurinol 100 mg tablet 100 mg PO DAILY tab 08/18/20 [History Confirmed 08/18/20] Ejection fraction %: 25 to 29 [facility] Medical History (Updated 08/18/20 @ 09:40 by Memo Gannon UPHOLSTERY SEWER, UPHOLSTERY SEWER-C) Dilated cardiomyopathy (Chronic) Chronic combined systolic and diastolic CHF (congestive heart failure) (Chronic) Pleural effusion on left (Chronic) Non-rheumatic tricuspid valve insufficiency (Chronic) Nonrheumatic mitral (valve) insufficiency (Chronic) Secondary pulmonary arterial hypertension (Chronic) Essential (primary) hypertension (Chronic) Hyperlipidemia (Chronic) Type 2 diabetes mellitus (Chronic) Chronic kidney disease (CKD) (Chronic) Prostate cancer (Chronic) Renal carcinoma (Chronic) Bladder cancer (Chronic) Arthritis (Chronic) Bone fracture (Chronic) Decreased hearing (Chronic) Gout (Chronic) History of prostate cancer (Chronic) Kidney disease (Chronic) Obesity (Chronic) Prostate cancer (Chronic) Prostate disease (Chronic) Seasonal allergies (Chronic) Thrombocytopenia (Chronic) Urinary frequency (Chronic) Vascular disease (Chronic) Vision loss (Chronic) Orthopnea (Resolved) Swallowing difficulty (Resolved) Surgical History H/O transurethral destruction of bladder lesion (Chronic) History of nephrectomy, left (Resolved) Hx of cholecystectomy (Resolved) Varicose veins of both lower extremities (Resolved) Family History Father Hypertension Melanoma Social History (Updated 08/18/20 @ 09:47 by Memo Gannon UPHOLSTERY SEWER, UPHOLSTERY SEWER-C) Smoking Status: Former smoker quit date: 07/14/89 Tobacco: How many years used: 15 how long ago did patient quit smokin years ago alcohol intake: never substance use type: does not use caffeine: Yes Type: coffee Number of servings: 3 what type of physical activity do you participate in: walking frequency: daily ROS Const Const: Negative for fatigue, weakness, headache(s), frequent falls, difficulty sleeping or excessive sweating Eyes Eyes: Negative for loss of peripheral vision, transient loss of vision, blurry vision, double vision or tunnel vision ENT ENT: Negative for headache(s), dizziness, Nosebleed/epistaxis or balance problems Cardio Chest Pain: No Palpitations: No Edema: None Muscle aches with walking: None Resp Respiratory: Negative for SOB with activity, SOB at rest, SOB orthopnea\SOB lying down, Cough or paroxysmal nocturnal dyspnea GI GI: Negative nausea, vomiting, heartburn or black,tarry stools : Negative for hematuria Musc Musc: Negative for muscle aches/ myalgia, muscle weakness, joint pain or balance problems Skin Skin: Negative non-healing lesions, rash or unusual bruising Neuro Neuro: Negative for dizziness, lightheadedness, near syncope, syncope, frequent falls, headache(s), weakness, blurry vision, double vision or lack of coordination [place] Hematologic/Lymphatic: Negative for easy bleeding or easy bruising Endo Endo: Negative for fatigue, excessive sweating or increased thirst/drinking Psych Psych: Negative for anxiety or depression Allergy Allergy/Immunology: Negative for hives, Negative for rash Cardiology Exam Const Appearance: cooperative, healthy appearing, comfortable and no acute distress Nutritional Appearance: well nourished and obese Orientation: alert, awake and oriented x3 Head Head: normal to inspection Ears: hearing grossly normal bilaterally Nose: external nose normal Face and Sinus: face symmetric Mouth: oral mucosae normal Eyes General: appearance normal, both eyes and all related structures Eyelids: eyelids normal EOM: EOM intact bilaterally Neck Neck: normal visual inspection and no JVD Carotids: normal carotid upstroke Chest Chest inspection: normal inspection of the chest, symmetric chest movement and normal respiratory effort; negative cough Auscultation: Bilateral: Clear to Auscultation Cardio Rate: regular rate Rhythm: regular rhythm Heart sounds: S1 normal and S2 normal; negative rub, gallop or murmur GI GI: normal to inspection and obese Neuro General: alert, awake, oriented x3 and CN's II-XI intact bilaterally Skin Skin: no rashes or lesions noted Extremities Pulses: Normal: Right Posterior Tibial Pulse, Left Posterior Tibial Pulse, Right Radial Pulse, Left Radial Pulse Lower Extremity Edema: None: Bilateral Psych Psychological: normal affect Assessment & Plan 1. Chronic combined systolic and diastolic CHF (congestive heart failure) I50.42 Plan His most recent echocardiogram on 08/07/2020 showed an ejection fraction of 25% and stage II diastolic dysfunction. He is not appear to be in a fluid volume overload state on exam. He appears to be currently in [place] [employer] functional class I. His initial presentation he appeared to be in [place] [employer] functional class III. He will continue with Coreg, losartan, and Lasix. Over time, we can consider increasing losartan therapy and/or adjusting to Entresto therapy. This will be evaluated on an ongoing basis. Due to ejection fraction remaining below 35% despite maximal Coreg therapy, he will proceed with preventative ICD placement. His EKG today in office shows sinus rhythm at a rate of 78 bpm, NE interval 168, QTc 415, and QRS 106. His stress test in May 2020 was negative for ischemia. Orders Orders: 12 Lead EKG performed by [facility] Today 2. Essential hypertension I10 Plan Patient's blood pressure is well-controlled. We will continue to monitor. We will not make any medication regimen changes. Orders Orders: 12 Lead EKG performed by [facility] Today 3. Hyperlipidemia, unspecified hyperlipidemia type E78.5 Plan He will continue current statin medication. 4. Chronic kidney disease, unspecified CKD stage N18.9 Plan This need to be followed closely given ongoing diuretic therapy. Orders Orders: 12 Lead EKG performed by [facility] Today Plan Detail Other Orders Orders: 12 Lead EKG performed by [facility] Today I27.21, I42.0, R06.00 COVID 19, PCR SENDOUT Today Z20.822 Other Medications Changed: From: allopurinol 100 mg PO BIDCM 180 tabs 3RF To: allopurinol 100 mg PO DAILY Additional Comments He will proceed with preventive ICD placement on 08/24/2020. Thank you for allowing us to participate in the patients plan of care, if you have any questions please do not hesitate to call. This note was generated using a voice recognition system and there may be incorrect words, spelling or punctuation that were not noted when reviewing the office note prior to saving. Coding Level of Care Code Off vis,est,level 3 Diagnoses Chronic combined systolic and diastolic CHF (congestive heart failure) I50.42 Essential hypertension I10 Hyperlipidemia, unspecified hyperlipidemia type E78.5 ??Hyperlipidemia type: unspecified Chronic kidney disease, unspecified CKD stage N18.9 ??Chronic kidney disease stage: unspecified stage Coding Level of Care Code Off vis,est,level 3 Diagnoses Chronic combined systolic and diastolic CHF (congestive heart failure) I50.42 Essential hypertension I10 Hyperlipidemia, unspecified hyperlipidemia type E78.5 ??Hyperlipidemia type: unspecified Chronic kidney disease, unspecified CKD stage N18.9 ??Chronic kidney disease stage: unspecified stage Supplemental Info Supplemental Information Echocardiogram from 08/07/2020: Interpretation Summary Normal LV size. The estimated ejection fraction is 25 %. Moderately severe global left ventricular systolic dysfunction. Stage 2 diastolic dysfunction. Mild (1+) eccentric mitral valve insufficiency. Compared to previous study, the left ventricular systolic function has worsened. The global longitudinal strain = -8.6% (abnormal). Stress test on 05/25/2020: Conclusion: Pharmacologic myocardial perfusion stress test with no obvious evidence of ischemia. Dilated cardiomyopathy Labs LDL Cholesterol 37 mg/dL (0-130) 09/07/19 HDL Cholesterol 33 mg/dL (40-) L 09/07/19 Triglycerides 175 mg/dL (-199) 09/07/19 VLDL Cholesterol 35 mg/dL (5-40) 09/07/19 Diagnostics Electrocardiogram 08/18/20 Echocardiogram 08/07/20 Stress Test Nuclear Medicine 05/25/20 Stress Test 05/25/20 Chest X-Ray 03/30/20
--- NOTE | 2020-08-24 13:25 | PCM.OPRPT ---
Report of Operation Date of Procedure: 08/24/20 Description of Surgical Findings:: Diagnosis: Nonischemic Cardiomyopathy with NYHA Class iii; Left ventricular ejection fraction 30% despite optimal medical therapy. ICD for primary prevention Preoperative diagnosis implantation of primary prevention single chamber ICD Postoperative diagnosis same as above After informed consent and IV antibiotics the patient was brought to the [facility] catheterization laboratory. The left side of the chest was prepped and draped in the usual sterile manner. The patient was sedated with intermittent boluses of IV Versed and fentanyl as well as subcutaneous 1% lidocaine. An incision was made inferior to the clavicle to accommodate the size of the hardware device. The pocket was created using blunt and Bovie dissection. Hemostasis was obtained. Using the Seldinger technique the axillary vein was cannulated once and a guidewire was advanced under fluoroscopic guidance. Over the guidewire a sheath was advanced. Through this sheath, the electrode was positioned under fluoroscopic guidance into the right ventricle and was actively fixated. Once actively fixated, the lead was tested to check for proper sensing, capture threshold, impedance and to exclude diaphragmatic stimulation. Once the lead was implanted and all electrical parameters were confirmed to be functioning normally with appropriate values, the leads was then sutured to the pectoralis muscle with 2-0 silk on the Silastic collar ?2. The sponge and needle count were correct. Hemostasis was obtained. Antibiotic solution was used to flush the pocket. The new device was brought to the field. The lead was placed in the appropriate position of the header of the device and were secured by the setscrews and confirmed by the tug test. The device and the leads were then placed in the pocket. Pocket was closed with a deep layer of running 2-0 Vicryl, superficial layer of running 4-0 Vicryl and skin with Steri-Strips that were covered with a rolled 4 x 4's and Tegaderm. The patient left the lab with the device programmed to chronic parameters. There were no complications. Implanted system is a single chamber [employer] ICD Lead and device serial and model numbers are available in the chart documents provided by the device company education courses sales representative procedure summary.
--- NOTE | 2020-08-24 13:37 | RAD_ITS ---
STUDY: X-RAY CHEST REASON FOR EXAM: Male, 75 years old. POST PACEMAKER , R/O PNEUMO TECHNIQUE: 1 view COMPARISON: Prior chest radiograph of 03/30/2020 FINDINGS: Pacemaker is placed through the left subclavian approach with the right ventricular pacemaker lead in good position. Negative for pneumothorax. Lung moreno are expanded and clear without new consolidation or pleural effusion. Normal size heart. Normal mediastinum and mary. Normal visualized pulmonary arteries. There is atherosclerotic tortuosity of the aortic arch and descending thoracic aorta. There are diffuse degenerative changes of the visualized thoracic spine. Normal visualized ribs, clavicles, and shoulders. There is no demonstrated abnormality of the visualized soft tissue structures of the upper abdomen. RAD/Chest 1 View (Portable) IMPRESSION: Right ventricular pacemaker lead in good position with no sequelae of line placement. No acute cardiopulmonary findings. Electronically Signed: Marhta Lam MD at 19:43 EST , Service support ,
--- NOTE | 2020-08-24 14:38 | PCS.PANDOC ---
PANDEMIC DOCUMENTATION INITIATED: Date: 08/24/20 Time: 1400
[2020-08-24] MEDS: Atorvastatin Calcium 10 MG Tablet PO (21:23)
[2020-08-24] MEDS: Carvedilol 25 MG Tablet PO (21:23)
[2020-08-25 03:00] VITALS: PULSE 83
[2020-08-25 03:20] VITALS: BP 142/87; PULSE 80; RESP 16; TEMP 36.2; O2SAT 93
--- NOTE | 2020-08-25 05:55 | RAD_ITS ---
HISTORY: s/p pacemakerto exclude pneumothorax ADDITIONAL HISTORY: None provided. COMPARISON: 08/24/2020 EXAMINATION/TECHNIQUE: XR Chest 3 Views: AP inspiration view, AP expiration view and lateral views Number of images including paperwork: 4 FINDINGS: LUNGS AND PLEURA: No consolidation, mass or pleural effusion. Mild hyperinflation. No pneumothorax. CARDIAC SILHOUETTE: Mildly enlarged. MEDIASTINUM AND NINI: Stable. UPPER ABDOMEN: Unremarkable. SKELETON AND SOFT TISSUES: No acute findings. Degenerative changes. OTHER DEVICES AND HARDWARE: Single lead pacemaker with left-sided generator. RAD/Chest 3 View IMPRESSION: No pneumothorax status post pacemaker placement. at 0539 Reported and signed by: Gregoria Thomas MD Electronically Signed: Gregoria Thomas MD at 5:38 EST Tel , Service support ,
--- NOTE | 2020-08-25 07:56 | PCM.PN.CARD ---
Subjectve: PT SEEN AND EVALUATED Objective: Vital Signs Temp Pulse Resp BP Pulse Ox 97.1 F L 80 16 142/87 H 93 08/25/20 03:20 08/25/20 03:20 08/25/20 03:20 08/25/20 03:20 08/25/20 03:20 Oxygen Delivery Method Room Air Weight: 233 lb Body Mass Index (BMI) 33.4 Intake and Output for Last 24 Hours 08/23/20 08/24/20 08/25/20 23:59 23:59 23:59 Intake Total 360 / 660 500 / 500 Output Total 650 / 650 Balance 360 / 310 -150 / -150 General: Awake, Alert, Oriented x 3 HEENT: PERRL, EOMI, Sclera Non Icteric Neck: Supple, Good ROM, No Lymph Node Enlargement Lungs: Clear to auscultation Cardiovascular: Regular Rhythm, Normal S1, Normal S2, No Murmurs, No Rubs, No Gallops Rhythm: EKG: ECHO: Stress Test: Cardiac Cath: PCI: CT Surgery: Holter monitor: EPS: PPM: CXR: Chest CT Scan: Medical Necessity - Tobacco Use Smoking Status: Former smoker Assessment/Plan 1. s/p pacer placement Wound check normal No pneumothorax dc home today
--- NOTE | 2020-08-25 07:58 | DCINST_ITS ---
Discharge Diet: No Restrictions Discharge Activity: May Not Drive Additional Activity Instructions:: May shower or bathe on []. Do not scrub the incision or soak in the tub. Just wash with soap and let the water run over the incision. Gently pat dry with towel. Medications: Take your pain medication as directed. Refer to your discharge instruction sheet for a list of medications you are to take. Call your doctor if your incision/area has: Continuous Slow Oozing, Sudden Increased Bleeding, Increased Pain/ Swelling, Increased Redness, Foul Smelling Discharge, Swelling at the incision site Call your doctor if you observe: Fever of 101 or Higher, Shortness of breath, Dizziness, Fainting spells, Swelling in the ankles, Chest pain, Prolonged hiccoughing, Increased palpitations (irregular heartbeat) Suture Line Care: Avoid Pulling/Pushing, Avoid Pinching/Bending Cleanse incision/area with: Keep Dressing Clean & Dry Additional Dressing/Incision Instructions:: When dressing is removed, wash and dry incision. Keep covered with a light bandage if it is rubbing against your clothing. Do not cover the incision with an airtight bandage. Change the bandage daily. Do not remove steri strips. The strips will fall off on their own. Additional Instructions: Signs and Symptoms to Report to Your Doctor at Once - call your doctor's office or Doctor's Registry ([phone]) Call [phone] or go to the nearest Emergency Department if you feel you need urgent care. *Infection (fever, increased redness or swelling at the incision site, drain age from the incision increased pain at the pacemaker site) *Shortness of breath *Dizziness *Fainting spells *Swelling in the ankles *Chest pain *Prolonged hiccoughing *Increased palpitaitons (irregular heartbeat) Medications: Take your pain medication as directed. Refer to your discharge instruction sheet for a list of medications you are to take. Allergies/Adverse Reactions: Allergies No Known Allergies Allergy (Verified 08/18/20 09:01) Medications to take at Discharge Aspirin E.C. [Ecotrin] 81 mg PO DAILY@0800 02/09/16 cholecalciferol (vitamin D3) 125 mcg (5,000 unit) capsule 5,000 unit PO DAILY 03/24/19 vitamins A,C,T-vlgj-euskoe 14,320 unit-226 mg-200 unit capsule 1 cap PO BID 03/24/19 exenatide microspheres 2 mg/0.85 mL subcutaneous auto-injector 2 mg SC Q7D 90 Days #11.05 ml 03/03/20 losartan 25 mg tablet 25 mg PO DAILY #90 tab 05/17/20 furosemide 40 mg tablet 40 mg PO DAILY #90 tab 06/05/20 carvedilol 25 mg tablet 25 mg PO BID tab 06/21/20 hydrocortisone 2.5 % topical cream 1 applic TOPICAL BID PRN #454 g 06/21/20 simvastatin 20 mg tablet 20 mg PO QHS #90 tab 06/21/20 allopurinol 100 mg tablet 100 mg PO DAILY tab 08/18/20 Primary Care Physician: Josh Schreiber MD [Primary Care Provider] - Test Results: Test results from this visit will be discussed in further detail at your follow- up appointment, if applicable. When: PACER CHECK ON 18 2:30PM Proposed Discharge Date: 08/25/20
[2020-08-25 09:20] VITALS: BP 132/74; PULSE 84; RESP 18; TEMP 36.4; O2SAT 95
[2020-08-25] MEDS: Aspirin E.C. 81 MG Tablet PO (10:20)
[2020-08-25] MEDS: Furosemide 40 MG Tablet PO (10:20)
[2020-08-25] MEDS: Allopurinol 100 MG Tablet PO (10:20)
[2020-08-25] MEDS: Carvedilol 25 MG Tablet PO (10:20)
[2020-08-25] MEDS: Losartan Potassium 25 MG Tablet PO (10:20)
--- NOTE | 2020-08-25 10:48 | PHA.DC.MR ---
Pharmacy Service has performed discharge medication reconciliation for this patient. No new medications at time of discharge. Medictions reviewed are from previously reported home medications. Home Medications Aspirin E.C. [Ecotrin] 81 mg PO DAILY@0800 02/09/16 cholecalciferol (vitamin D3) 125 mcg (5,000 unit) capsule 5,000 unit PO DAILY 03/24/19 vitamins A,C,Z-xiso-sbkbbp 14,320 unit-226 mg-200 unit capsule 1 cap PO BID 03/24/19 exenatide microspheres 2 mg/0.85 mL subcutaneous auto-injector 2 mg SC Q7D 90 Days #11.05 ml 03/03/20 losartan 25 mg tablet 25 mg PO DAILY #90 tab 05/17/20 furosemide 40 mg tablet 40 mg PO DAILY #90 tab 06/05/20 carvedilol 25 mg tablet 25 mg PO BID tab 06/21/20 hydrocortisone 2.5 % topical cream 1 applic TOPICAL BID PRN #454 g 06/21/20 simvastatin 20 mg tablet 20 mg PO QHS #90 tab 06/21/20 allopurinol 100 mg tablet 100 mg PO DAILY tab 08/18/20 The patient's discharge medication list was reviewed for discrepancies and discrepancies were resolved.
== END 2020-08-25 07:59 | disposition home or self-care (01) ==
LOC: CLSP 10:55 → PCU 13:55
PROVIDERS: PCP Internal Medicine; Referring Provider Internal Medicine Cardiovascular Disease; Visit Provider Internal Medicine Cardiovascular Disease
DX: I42.0 Dilated cardiomyopathy (principal); R06.09 Other forms of dyspnea; I13.0 Hypertensive heart and chronic kidney disease with heart failure and stage 1 through stage 4 chronic kidney disease, or unspecified chronic kidney disease; I34.0 Nonrheumatic mitral (valve) insufficiency; E78.5 Hyperlipidemia, unspecified; N18.9 Chronic kidney disease, unspecified; I50.42 Chronic combined systolic (congestive) and diastolic (congestive) heart failure; J90 Pleural effusion, not elsewhere classified; Z85.46 Personal history of malignant neoplasm of prostate; Z87.891 Personal history of nicotine dependence; Z79.82 Long term (current) use of aspirin; Z85.51 Personal history of malignant neoplasm of bladder; Z90.5 Acquired absence of kidney; Z95.0 Presence of cardiac pacemaker
CPT/HCPCS: 33249; 36415; 71045; 71047; 80048; 81001; 85027; 85610; 93641; 99152; 99153; J7040; J7050; C1894

== ENCOUNTER 2020-09-06 10:20 | Outpatient (RCR) | payer MEDICARE, OTHER, SELFPAY ==
[2020-08-23 09:28] VITALS: BMI 33.4
== END 2020-09-06 23:59 ==
LOC: IMMUN 10:20
PROVIDERS: PCP Internal Medicine; Referring Provider Family Medicine; Visit Provider Family Medicine
DX: Z23 Encounter for immunization (principal)
CPT/HCPCS: 0011A; 0012A; 91301

== ENCOUNTER → 2020-10-18 11:55 | Outpatient (CLI) | payer MEDICARE, OTHER, SELFPAY ==
[2020-09-20 08:08] VITALS: BMI 33.8
[2020-10-18 12:23] LABS: Color, Urine Yellow (Yellow); Glucose, Dipstick Normal (Normal); Ketone-Dipstick 5 mg/dl (Negative); Leukocyte Esterase-Dipstick Negative /ul (Negative); Nitrite-Dipstick Negative (Negative); Occult Blood-Urine Negative /ul (Negative); Protein-Dipstick 30 mg/dl (Negative); Specific Gravity, Urine 1.025 (1.002-1.030); Urine Bilirubin Dipstick Negative (Negative); Urine Clarity Sl. Cloudy (Clear); Urine Urobilinogen Normal (Normal)
[2020-10-18 12:44] LABS: Protein, Urine (Random) 41.3 mg/dL (<11.9); Protein:Creat Ratio 149 mg/g CRE (0-200)
[2020-10-18 12:45] LABS: Anion Gap 5 (5-15); BUN 38 mg/dL (7-18); BUN/Creat Ratio 17.1 RATIO (10-20); Calcium,Total 9.5 mg/dL (8.5-10.1); Chloride 102 mmol/L (98-107); Creatinine, Serum 2.22 mg/dL (0.70-1.30); EST Glomerular Filtration Rate 31 mL/min (>60); Est Glom Filt Rate - Afr Amer 37 mL/min (>60); Glucose 167 mg/dL (74-106); Phosphorus 4.6 mg/dL (2.5-4.9); Potassium 4.2 mmol/L (3.5-5.1); Sodium Level 136 mmol/L (136-145)
[2020-10-18 12:46] LABS: PTHIN 26.7 pg/mL (18.4-80.1)
[2020-10-18 12:52] LABS: Vitamin D,25 Hydroxy 28.4 ng/mL
[2020-10-19 12:12] LABS: Mucous, Urine 0 SEEN /hpf (<or=2+); Red Blood Cells-Urine 0 SEEN /hpf (0-5); Squamous Epithelial Cells - UA 0 SEEN /hpf (0-5); White Blood Cells 0 SEEN /hpf (0-5)
[2020-10-19 14:24] LABS: Bacteria RARE /hpf (None Seen); Hyaline Cast 0-5 SEEN /lpf (0-5)
== END ==
PROVIDERS: PCP Internal Medicine; Referring Provider Internal Medicine; Visit Provider Internal Medicine
DX: N18.30 Chronic kidney disease, stage 3 unspecified (principal)
CPT/HCPCS: 36415; 80048; 81001; 81002; 82306; 82570; 83970; 84100; 84156

== ENCOUNTER → 2021-01-01 09:49 | Outpatient (CLI) | payer MEDICARE, OTHER, SELFPAY ==
[2020-09-20 08:08] VITALS: BMI 33.8
[2021-01-01 12:40] LABS: Vitamin D,25 Hydroxy 56.4 ng/mL
[2021-01-01 12:41] LABS: Color, Urine Yellow (Yellow); Glucose, Dipstick Normal (Normal); Ketone-Dipstick Negative (Negative); Leukocyte Esterase-Dipstick Negative /ul (Negative); Nitrite-Dipstick Negative (Negative); Occult Blood-Urine Negative /ul (Negative); Protein-Dipstick 30 mg/dl (Negative); Specific Gravity, Urine 1.015 (1.002-1.030); Urine Bilirubin Dipstick Negative (Negative); Urine Clarity Clear (Clear); Urine Urobilinogen Normal (Normal)
[2021-01-01 13:23] LABS: Anion Gap 8 (5-15); BUN 40 mg/dL (7-18); BUN/Creat Ratio 18.2 RATIO (10-20); Calcium,Total 9.4 mg/dL (8.5-10.1); Chloride 103 mmol/L (98-107); EST Glomerular Filtration Rate 31 mL/min (>60); Est Glom Filt Rate - Afr Amer 38 mL/min (>60); Glucose 228 mg/dL (74-106); PSA,Total- Diagnostic 7.89 ng/mL (0.0-4.0); Phosphorus 4.7 mg/dL (2.5-4.9); Potassium 4.4 mmol/L (3.5-5.1); Sodium Level 137 mmol/L (136-145)
[2021-01-01 13:31] LABS: Protein:Creat Ratio 226 mg/g CRE (0-200)
[2021-01-03 16:09] LABS: PROEL- A/G Ratio 1.1 (0.7-1.7); PROEL- Albumin 3.5 g/dL (2.9-4.4); PROEL- Alpha-1 Globulin 0.2 g/dL (0.0-0.4); PROEL- Alpha-2 Globulin 0.8 g/dL (0.4-1.0); PROEL- Gamma Globulin 1.3 g/dL (0.4-1.8); PROEL- Globulin, Total 3.3 g/dL (2.2-3.9); PROEL- TOTAL PROTEIN 6.8 g/dL (6.0-8.5); PROELU- Albumin, Urine 63.5 % (.); PROELU- Alpha-1-Globulin,Ur 2.7 % (.); PROELU- Alpha-2-Globulin,Ur 10.2 % (.); PROELU- Beta Globulin, Ur 14.6 % (.); Total Protein, Ur 29.3 mg/dL (Not Estab.)
== END ==
PROVIDERS: PCP Urology; Referring Provider Internal Medicine; Visit Provider Internal Medicine
DX: N18.30 Chronic kidney disease, stage 3 unspecified (principal); C61 Malignant neoplasm of prostate
CPT/HCPCS: 36415; 80048; 81002; 82306; 82570; 84100; 84153; 84156; 84165; 84166

== ENCOUNTER → 2021-01-03 10:41 | Outpatient (CLI) | payer MEDICARE, OTHER, SELFPAY ==
[2020-09-20 08:08] VITALS: BMI 33.8
[2021-01-03 13:18] LABS: Creat.Clear Total Volume 1700 mL; Creatinine Clearance 47 ml/min (100-200); Creatinine Serum Creat 2.2 mg/dL (0.8-1.3); Creatinine Urine 87.3 mg/dL (NO RANGE EST.); EST Glomerular Filtration Rate 31 mL/min (>60); Est Glom Filt Rate - Afr Amer 38 mL/min (>60)
[2021-01-03 13:19] LABS: 24 Hour Urine Protein 241.4 mg/24HR (<150 MG/24HR); 24HR. UA Prot. Total Volume 1700 mL; Urine Protein (24 Hour) 14.2 mg/dL (<11.9)
[2021-01-04 09:55] LABS: 24HR. Urine Creatinine 1.48 g/24 HR (0.90-2.10)
== END ==
PROVIDERS: PCP Internal Medicine; Referring Provider Internal Medicine; Visit Provider Internal Medicine
DX: N18.30 Chronic kidney disease, stage 3 unspecified (principal)
CPT/HCPCS: 81050; 82570; 82575; 84156

== ENCOUNTER → 2021-02-13 13:55 | Outpatient (CLI) | payer MEDICARE, OTHER, SELFPAY ==
[2021-01-10 08:15] VITALS: BMI 33.8
--- NOTE | 2021-02-13 13:30 | PET_ITS ---
EXAMINATION: 18F Fluciclovine PET/CT CLINICAL HISTORY: A 75-year-old male with history of carcinoma of the prostate presenting for restaging examination. COMPARISON EXAMINATION: None available PROCEDURE: The patient received an intravenous bolus injection of 10.95 mCi of Axumin (fluciclovine F-18) via the left hand, on the imaging table with the patient in the supine position followed by an intravenous normal saline flush. The patient in the supine position with arms above the head, CT scan for attenuation correction was performed immediately following the bolus injection and left up for 1-2 minutes. The PET scan acquisition was begun within 3-5 minutes following injection from mid thigh to the base of the skull. The total scan time was registered between 20-30 minutes. Axumin (fluciclovine F-18) injection is indicated for positron emission tomography PET imaging in men with suspected prostate cancer recurrence based on elevation of the serum prostatic surface antigen (PSA) levels following prior treatment intervention. HEIGHT: 70 inches. WEIGHT: 225 lbs. LIVER BLOOD POOL SUV: 6.8 BLOOD POOL: 1.2 BONE MARROW: 1.9 INDEX LESION SIZE SUV INTERPRETATION Lower pelvis, prostate gland, R-peripheral zone 23.6-mm (frame 71) 3.46 > bone marrow, blood pool ref. Fulfills quantitative criteria for viable neoplasm FINDINGS: Head/Neck: There is symmetric radiopharmaceutical concentration demonstrated in the bilateral parotid and submandibular glands. There is no evidence of abnormal increased tracer uptake within the cranial vault. CHEST: Meticulous attention paid to the bilateral hemithorax pulmonary parenchyma, mediastinal structures and right-left thoracic perihilum reveal no evidence of facilitated 18-F fluciclovine uptake. Pertinent chest CT findings are as follows. Ventricular pacemaker placement is demonstrated. There is atherosclerotic calcification defined in the thoracic aorta without evidence of dilatation-aneurysm formation. Coronary arterial calcification is observed. Bilateral axillary and scattered mediastinal soft tissue densities reveal no evidence of increased radiopharmaceutical uptake. There are no parenchymal densities-nodules defined in the right and left hemithorax with increased radiotracer distribution. A calcified density manifest in the left mid anterior lung-left upper lobe is non-fluciclovine avid. Abdomen/Pelvis: Increased radiopharmaceutical concentration is identified in the lower pelvis to the right of the midline involving the peripheral zone of the prostate gland. The calculated maximal standard uptake value is 3.46, greater than bone marrow, blood pool reference. The maximal axial diameter of the metabolic abnormality on review of CT of the pelvis dated 02/13/21 is 23.6-mm. There is physiologic tracer distribution noted in the hepatic and splenic parenchyma, pancreatic head-tail, intestinal tract. Review of CT of the abdomen and pelvis demonstrates the following. The gallbladder is surgically absent. There is borderline fatty metamorphosis-steatosis defined in the hepatic parenchyma. There is atherosclerotic calcification defined in the abdominal aorta without evidence of dilatation-aneurysm formation. Pelvic arterial calcification is observed. Bilateral inguinal soft tissue densities with fatty hilus demonstrate no evidence of quantitatively significant increased radiopharmaceutical uptake. Calcified phlebolith formation is noted in the left lower hemipelvis. The left kidney appears morphologically absent. Seed placement is noted in the prostate gland. Skeletal: Degenerative changes are noted in the cervical, thoracic and lumbar spine without evidence of increased radiopharmaceutical concentration. There is no evidence of sclerotic, mixed sclerotic-lytic and/or lytic changes noted on review of the skeletal structures manifesting an increase in glucose metabolism. PET/PET/CT Tumor Base -Thigh Subs IMPRESSION: 1. 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 2. Enhanced tracer uptake observed in the prostate gland to the right of the midline-involving the peripheral zone fulfills quantitative criteria for malignant transformation. (Gerald et al, Journal of Nuclear Medicine 55:1986, 2014). Electronic Signature Jewel Zamora D.O. Electronically Signed: Jewel Zamora DO at 11:05 EDT Tel , Service support ,
== END ==
PROVIDERS: PCP Internal Medicine; Referring Provider Urology; Visit Provider Urology
DX: C61 Malignant neoplasm of prostate (principal)
CPT/HCPCS: 78815; A9588

== ENCOUNTER → 2021-05-14 14:36 | Outpatient (CLI) | payer MEDICARE, OTHER, SELFPAY ==
[2021-05-14 16:53] LABS: Anion Gap 7 (5-15); BUN 47 mg/dL (7-18); BUN/Creat Ratio 15.7 RATIO (10-20); Calcium,Total 10.4 mg/dL (8.5-10.1); Chloride 104 mmol/L (98-107); Creatinine, Serum 2.99 mg/dL (0.70-1.30); EST Glomerular Filtration Rate 22 mL/min (>60); Est Glom Filt Rate - Afr Amer 26 mL/min (>60); Glucose 133 mg/dL (74-106); Potassium 4.1 mmol/L (3.5-5.1); Protein, Urine (Random) 11.7 mg/dL (<11.9); Protein:Creat Ratio 174 mg/g CRE (0-200); Sodium Level 138 mmol/L (136-145)
[2021-05-14 16:59] LABS: Vitamin D,25 Hydroxy 90.5 ng/mL
== END ==
PROVIDERS: PCP Internal Medicine; Referring Provider Internal Medicine Nephrology; Visit Provider Internal Medicine Nephrology
DX: E55.9 Vitamin D deficiency, unspecified (principal); R80.9 Proteinuria, unspecified; N18.30 Chronic kidney disease, stage 3 unspecified
CPT/HCPCS: 36415; 80048; 82306; 82570; 84156

== ENCOUNTER → 2021-05-23 14:16 | Outpatient (CLI) | payer MEDICARE, OTHER, SELFPAY ==
[2021-05-23 15:36] LABS: Anion Gap 6 (5-15); BUN 27 mg/dL (7-18); BUN/Creat Ratio 12.1 RATIO (10-20); Calcium,Total 8.9 mg/dL (8.5-10.1); Chloride 111 mmol/L (98-107); Creatinine, Serum 2.24 mg/dL (0.70-1.30); EST Glomerular Filtration Rate 31 mL/min (>60); Est Glom Filt Rate - Afr Amer 37 mL/min (>60); Glucose 183 mg/dL (74-106); Potassium 4.6 mmol/L (3.5-5.1); Sodium Level 142 mmol/L (136-145)
== END ==
PROVIDERS: PCP Internal Medicine; Referring Provider Internal Medicine Nephrology; Visit Provider Internal Medicine Nephrology
DX: N18.32 Chronic kidney disease, stage 3b (principal)
CPT/HCPCS: 36415; 80048

== ENCOUNTER 2021-07-20 08:59 | Outpatient (CLI) | payer MEDICARE, OTHER, SELFPAY ==
[2021-07-20 13:20] LABS: PSA,Total- Diagnostic 8.44 ng/mL (0.0-4.0)
== END 2021-07-20 23:59 | disposition short-term general hospital (02) ==
LOC: BIMLAB 09:01
PROVIDERS: PCP Internal Medicine; Referring Provider Urology; Visit Provider Urology
DX: C61 Malignant neoplasm of prostate (principal)
CPT/HCPCS: 36415; 84153

== ENCOUNTER 2021-07-24 08:13 | Outpatient (CLI) | payer MEDICARE, OTHER, SELFPAY | END 2021-07-24 23:59 | disposition short-term general hospital (02) | LOC: PSN 08:14 | PROVIDERS: PCP Internal Medicine; Referring Provider Internal Medicine Cardiovascular Disease; Visit Provider Internal Medicine Cardiovascular Disease | DX: I48.91 Unspecified atrial fibrillation (principal) | CPT/HCPCS: 93225; 93226 ==

== ENCOUNTER 2021-08-18 10:31 | Outpatient (CLI) | payer MEDICARE, OTHER, SELFPAY ==
[2021-08-18 11:17] LABS: Anion Gap 4 (5-15); BUN 29 mg/dL (7-18); BUN/Creat Ratio 13.3 RATIO (10-20); Calcium,Total 8.4 mg/dL (8.5-10.1); Chloride 108 mmol/L (98-107); Creatinine, Serum 2.18 mg/dL (0.70-1.30); EST Glomerular Filtration Rate 31 mL/min (>60); Est Glom Filt Rate - Afr Amer 38 mL/min (>60); Glucose 171 mg/dL (74-106); Potassium 4.9 mmol/L (3.5-5.1); Protein, Urine (Random) 71.5 mg/dL (<11.9); Protein:Creat Ratio 334 mg/g CRE (0-200); Sodium Level 137 mmol/L (136-145)
== END 2021-08-18 23:59 | disposition home or self-care (01) ==
LOC: LAB 10:34
PROVIDERS: PCP Internal Medicine; Referring Provider Internal Medicine Nephrology; Visit Provider Internal Medicine Nephrology
DX: N18.32 Chronic kidney disease, stage 3b (principal)
CPT/HCPCS: 36415; 80048; 82570; 84156

== ENCOUNTER → 2021-12-17 | Outpatient (CLI) | payer MEDICARE, OTHER, SELFPAY ==
[2021-12-17 12:48] LABS: Vitamin D,25 Hydroxy 30.3 ng/mL
[2021-12-17 12:56] LABS: Anion Gap 7 (5-15); BUN 29 mg/dL (7-18); BUN/Creat Ratio 14.7 RATIO (10-20); Calcium,Total 8.6 mg/dL (8.5-10.1); Chloride 108 mmol/L (98-107); Creatinine, Serum 1.97 mg/dL (0.70-1.30); EST Glomerular Filtration Rate 35 mL/min (>60); Est Glom Filt Rate - Afr Amer 43 mL/min (>60); Glucose 175 mg/dL (74-106); Potassium 4.9 mmol/L (3.5-5.1); Sodium Level 138 mmol/L (136-145)
[2021-12-17 13:17] LABS: Protein, Urine (Random) 100.8 mg/dL (<11.9); Protein:Creat Ratio 512 mg/g CRE (0-200)
== END | disposition home or self-care (01) ==
LOC: BIMLAB 10:00
PROVIDERS: PCP Internal Medicine; Referring Provider Nurse Practitioner Adult Health; Visit Provider Nurse Practitioner Adult Health
DX: N18.32 Chronic kidney disease, stage 3b (principal); R80.9 Proteinuria, unspecified; E55.9 Vitamin D deficiency, unspecified
CPT/HCPCS: 36415; 80048; 82306; 82570; 84156

== ENCOUNTER → 2022-01-23 | Outpatient (CLI) | payer MEDICARE, OTHER, SELFPAY | END | disposition home or self-care (01) | LOC: BIMLAB 08:39 | PROVIDERS: PCP Internal Medicine; Referring Provider Urology; Visit Provider Urology | DX: C61 Malignant neoplasm of prostate (principal) | CPT/HCPCS: 36415; 84153 ==

== ENCOUNTER → 2022-02-13 | Outpatient (CLI) | payer MEDICARE, OTHER, SELFPAY ==
--- NOTE | 2022-02-13 15:45 | PET_ITS ---
EXAMINATION: Ga 68 PSMA (PYLARIFY) PET-CT INDICATIONS: A 76-year-old male with history of carcinoma of the prostate presenting for restaging examination. COMPARISON EXAMINATION: 18-F fluciclovine PET-CT dated 02/13/21 INDEX LESION SIZE PROMISE SCORE SUV INTERPRETATION Prostate gland midline apex to the right base 28.7-mm x 34.9-mm 3 21.8 Fulfills quantitative criteria for viable neoplasm TECHNIQUE: Following the intravenous administration of 10.63 mCi of Ga 68 PSMA, via the right antecubital fossa, imaging were acquired using multiple positions along the same length of the patient?s body as the computed tomography examination. Iterative methods were used to reconstruct PET acquisitions. CT images were used accordingly for attenuation correction and anatomic localization. The examination was interpreted using the EANM (Garth et al., Journal of Nuclear Medicine Molecular Imaging 44:1622, 2017) and PROMISE (Yusuf et al., Journal of Nuclear Medicine 59:469, 2018) interpretive criteria. HEIGHT:?70?inches?WEIGHT: 225 lbs. PSMA expression score PROMISE criteria: High (3): SUV ? parotid-salivary gland, intermediate (2): SUV ? liver, < parotid gland; low (1): SUV ? blood pool. SUV reference values: Parotid glands 19.0. Normal liver parenchyma 6.4. Blood pool 2.5. FINDINGS: Head/Neck: There is physiologic distribution of the radiopharmaceutical symmetrical defined in the right-left parotid and submandibular glands, the nasal cavity. There is no evidence of abnormal increased tracer uptake within the context of the visualized cranial vault. CHEST: No definitive abnormal increase in radiopharmaceutical concentration is defined in the bilateral hemithorax pulmonary parenchyma, the pleural interface and mediastinum, thoracic perihilum. Pertinent chest CT findings are as follows. Shandra-cath placement is noted. There is atherosclerotic calcification defined in the thoracic aorta without evidence of dilatation-aneurysm formation. Coronary arterial calcification is encountered. Calcified density noted in the left upper lung field is non-radiopharmaceutical avid. Right and left axillary soft tissue densities demonstrate no evidence of increased tracer concentration. Abdomen/Pelvis: Focal increased radiopharmaceutical concentration is identified in the prostate gland in the midline and to the right of the midline extending from the apex to base encompassing the peripheral and central zones. The calculated maximal standard uptake value is 21.8. The PROMISE score is 3. The maximal axial diameter of the metabolic abnormality is 28.7-mm (transverse) and 34.9-mm (AP). Physiologic radiopharmaceutical concentration is otherwise noted in the hepatic and splenic parenchyma, the right kidney, visualized intestinal tract, and urinary bladder. The left kidney is metabolically, morphologically absent. Pertinent abdomen and pelvis CT findings are as follows. The gallbladder is surgically absent. There is atherosclerotic calcification defined in the abdominal aorta without evidence of dilatation-aneurysm formation. Abdominal and pelvic arterial calcification is encountered. Subcentimeter inguinal soft tissue densities are non-tracer avid. Seed implants are defined within the prostate gland. Skeletal: Increased radiotracer concentration is noted in the intervertebral disc space of the fifth lumbar vertebra and first sacral segment. Otherwise, no skeletal scintigraphic abnormalities are defined. PET/PET/CT Tumor Base -Thigh Subs IMPRESSION: 1. ABNORMAL EXAMINATION INDICATIVE OF MALIGNANT VIABLE NEOPLASM. 2. Focal increased Ga 68 PSMA concentration identified within the prostate gland fulfills quantitative criteria for viable neoplasm. 3. Enhanced tracer uptake noted in the intervertebral disc space of the fifth lumbar vertebra and sacrum likely represent degenerative arthritis. (Ashley et al, Tomography 4:182, 2018). 4. Compared to the 18-F fluciclovine study dated 02/13/21, there is current demonstration of Ga 68 PSMA viable neoplastic disease within the prostate gland. Electronic Signature Jewel Zamora D.O. Electronically Signed: Jewel Zamora, at 14:34 EDT ,
== END | disposition home or self-care (01) ==
LOC: ONC 15:26
PROVIDERS: PCP Internal Medicine; Referring Provider Urology; Visit Provider Urology
DX: C61 Malignant neoplasm of prostate (principal); R97.20 Elevated prostate specific antigen [PSA]
CPT/HCPCS: 78815; A9595

== ENCOUNTER → 2022-03-19 | Outpatient (CLI) | payer MEDICARE, OTHER, SELFPAY ==
[2022-03-19 12:50] LABS: Anion Gap 9 (5-15); BUN 43 mg/dL (7-18); Calcium,Total 9.4 mg/dL (8.5-10.1); Chloride 110 mmol/L (98-107); Creatinine, Serum 2.68 mg/dL (0.70-1.30); EST Glomerular Filtration Rate 25 mL/min (>60); Est Glom Filt Rate - Afr Amer 30 mL/min (>60); Glucose 173 mg/dL (74-106); Potassium 4.8 mmol/L (3.5-5.1); Sodium Level 139 mmol/L (136-145)
== END | disposition home or self-care (01) ==
LOC: BIMLAB 10:50
PROVIDERS: PCP Internal Medicine; Referring Provider Internal Medicine; Visit Provider Internal Medicine
DX: E11.9 Type 2 diabetes mellitus without complications (principal); N18.9 Chronic kidney disease, unspecified
CPT/HCPCS: 36415; 80048

== ENCOUNTER → 2022-04-11 | Outpatient (CLI) | payer MEDICARE, OTHER, SELFPAY ==
[2022-04-11 17:03] LABS: Anion Gap 10 (5-15); BUN 29 mg/dL (7-18); BUN/Creat Ratio 12.6 RATIO (10-20); Calcium,Total 8.9 mg/dL (8.5-10.1); Chloride 107 mmol/L (98-107); EST Glomerular Filtration Rate 30 mL/min (>60); Est Glom Filt Rate - Afr Amer 36 mL/min (>60); Glucose 171 mg/dL (74-106); Potassium 4.7 mmol/L (3.5-5.1); Sodium Level 141 mmol/L (136-145)
== END | disposition home or self-care (01) ==
LOC: BIMLAB 14:38
PROVIDERS: PCP Internal Medicine; Referring Provider Internal Medicine; Visit Provider Internal Medicine
DX: E11.9 Type 2 diabetes mellitus without complications (principal); I10 Essential (primary) hypertension
CPT/HCPCS: 36415; 80048

== ENCOUNTER → 2022-05-24 | Outpatient (CLI) | payer MEDICARE, OTHER, SELFPAY ==
[2022-05-24 12:20] LABS: Anion Gap 7 (5-15); BUN 39 mg/dL (7-18); BUN/Creat Ratio 15.7 RATIO (10-20); Calcium,Total 9.1 mg/dL (8.5-10.1); Chloride 108 mmol/L (98-107); Creatinine, Serum 2.48 mg/dL (0.70-1.30); EST Glomerular Filtration Rate 27 mL/min (>60); Est Glom Filt Rate - Afr Amer 33 mL/min (>60); Glucose 222 mg/dL (74-106); Potassium 4.9 mmol/L (3.5-5.1); Sodium Level 138 mmol/L (136-145)
[2022-05-24 12:27] LABS: Hemoglobin A1c 8.6 % (3.8-5.6)
== END | disposition home or self-care (01) ==
LOC: BIMLAB 10:52
PROVIDERS: PCP Internal Medicine; Referring Provider Internal Medicine; Visit Provider Internal Medicine
DX: E11.69 Type 2 diabetes mellitus with other specified complication (principal)
CPT/HCPCS: 36415; 80048; 83036

== ENCOUNTER → 2022-07-24 | Outpatient (CLI) | payer MEDICARE, OTHER, SELFPAY ==
[2022-07-24 15:58] LABS: Anion Gap 6 (5-15); BUN 60 mg/dL (7-18); BUN/Creat Ratio 23.6 RATIO (10-20); Calcium,Total 9.2 mg/dL (8.5-10.1); Chloride 104 mmol/L (98-107); Creatinine, Serum 2.54 mg/dL (0.70-1.30); EST Glomerular Filtration Rate 26 mL/min (>60); Est Glom Filt Rate - Afr Amer 32 mL/min (>60); Glucose 150 mg/dL (74-106); Sodium Level 138 mmol/L (136-145)
[2022-07-24 16:02] LABS: Protein, Urine (Random) 31.4 mg/dL (<11.9); Protein:Creat Ratio 150 mg/g CRE (0-200)
== END | disposition home or self-care (01) ==
LOC: BIMLAB 13:30
PROVIDERS: PCP Internal Medicine; Referring Provider Internal Medicine Nephrology; Visit Provider Internal Medicine Nephrology
DX: N18.32 Chronic kidney disease, stage 3b (principal)
CPT/HCPCS: 36415; 80048; 82570; 84156

== ENCOUNTER → 2022-08-20 | Outpatient (CLI) | payer MEDICARE, OTHER, SELFPAY ==
--- NOTE | 2022-08-20 08:50 | ECHOD_ITS ---
Version 2 Reason For Study: CHF Procedure This was a 2D Doppler, Color Flow transthoracic echocardiogram. Myocardial strain analysis was performed in this exam to aid in the assessment of cardiac function. No DEFINITY, Left Nephrectomy. Exam performed in department. Left Ventricle Normal LV size. The estimated ejection fraction is 30 %. Stage 1 diastolic dysfunction. There is moderate to severe global hypokinesis of the left ventricle. Right Ventricle Normal RV size. ICD or pacer leads identified within the right ventricle. Normal systolic function. Atria Normal left atrium. Normal right atrium. Mitral Valve Bileaflet diffuse mitral valve thickening. Mild (1+) eccentric mitral valve insufficiency. Tricuspid Valve Normal tricuspid valve. Mild (1+) tricuspid valve insufficiency. Pulmonary artery systolic pressure is 35 mmHg. Aortic Valve Trisinus/trileaflet aortic valve. Moderate diffuse aortic valve thickening. Pulmonic Valve Normal pulmonic valve. Great Vessels Normal aortic root. The pulmonary artery is normal size. Normal inferior vena cava. Pericardium/Pleural No pericardial effusion. MMode/2D Measurements & Calculations LVIDd: 5.0 cm IVSd: 0.78 cm LVOT diam: 2.1 cm LVIDs: 4.1 cm LVPWd: 0.87 cm LVOT area: 3.4 cm2 RVDd: 3.7 cm FS: 18.8 % Ao root diam: 3.0 cm LAV(MOD-bp): 43.2 ml LVAd ap4: 35.8 cm2 LA dimension: 3.9 cm LAV(MOD-bp) Indexed: 19.7 ml/m2 LVLd ap4: 8.8 cm LAV(MOD-sp2): 47.3 ml EDV(MOD-sp4): 118.2 ml LAV(MOD-sp4): 33.4 ml EDV(sp4-el): 123.0 ml LVAs ap4: 25.3 cm2 LVLs ap4: 7.9 cm ESV(MOD-sp4): 65.9 ml ESV(sp4-el): 68.4 ml EF(MOD-sp4): 44.3 % EF(sp4-el): 44.4 % SV(MOD-sp4): 52.3 ml SV(sp4-el): 54.7 ml LA A4 area: 13.7 cm2 RA A4 area: 12.3 cm2 Time Measurements MV dec time: 0.18 sec Doppler Measurements & Calculations MV E max allan: 65.2 cm/sec Lat Peak E' Allan: 5.6 cm/sec Med Peak E' Allan: 4.4 cm/sec MV A max allan: 85.0 cm/sec E/E' lat: 11.7 E/E' med: 15.0 MV E/A: 0.77 MV V2 max: 101.8 cm/sec MV P1/2t max allan: 91.8 cm/sec Ao V2 max: 175.4 cm/sec MV max P.1 mmHg MV P1/2t: 59.9 msec Ao max P.3 mmHg MV V2 mean: 66.9 cm/sec Ao V2 mean: 129.3 cm/sec MV mean P.0 mmHg MV dec slope: 448.9 cm/sec2 Ao mean P.6 mmHg MV V2 VTI: 21.5 cm MVA(P1/2t): 3.7 cm2 Ao V2 VTI: 37.4 cm AV (velocity ratio): 0.45 MVA(VTI): 2.7 cm2 PETER(I,D): 1.5 cm2 PETER(V,D): 1.5 cm2 AI max allan: 285.4 cm/sec LV V1 max: 79.9 cm/sec MR max allan: 502.0 cm/sec AI max P.6 mmHg LV V1 max P.6 mmHg MR max P.8 mmHg LV V1 mean P.7 mmHg AI dec slope: 140.0 cm/sec2 LV V1 mean: 61.6 cm/sec AI P1/2t: 597.1 msec LV V1 VTI: 16.9 cm SV(LVOT): 57.1 ml PA V2 max: 107.8 cm/sec PI dec slope: 350.3 cm/sec2 TR max allan: 280.3 cm/sec TR max P.4 mmHg ECHO/Echo Complete Interpretation Summary Normal LV size. The estimated ejection fraction is 30 %. Stage 1 diastolic dysfunction. Pulmonary artery systolic pressure is 35 mmHg. Moderate diffuse aortic valve thickening. The global longitudinal strain is severely abnormal. The global longitudinal st rain = -11.7% (abnormal). Ordering Physician: Memo Gannon Performed By: Albin Powell RCS
== END | disposition home or self-care (01) ==
LOC: CVS 08:49
PROVIDERS: Visit Provider Nurse Practitioner Family
DX: I50.42 Chronic combined systolic (congestive) and diastolic (congestive) heart failure (principal)
CPT/HCPCS: 93306

== ENCOUNTER → 2022-09-03 | Outpatient (CLI) | payer MEDICARE, OTHER, SELFPAY ==
[2022-09-03 13:05] LABS: AST(SGOT) 26 U/L (15-37); Alanine Aminotransfer ALT/SGPT 35 U/L (16-61); Albumin, Serum 3.5 g/dL (3.2-5.0); Alkaline Phosphatase 79 U/L (45-117); Bilirubin, Direct 0.17 mg/dL (0.00-0.30); Cholesterol 111 mg/dL (200); Globulin 3.9 g/dL (2.2-4.2); High Density Lipoprotein 29 mg/dL; Protein, Total 7.4 g/dL (6.4-8.2); Triglycerides 361 mg/dL; Very Low Density Lipoprotein 72 mg/dL (5-40)
== END | disposition home or self-care (01) ==
LOC: BIMLAB 11:25
PROVIDERS: Nurse Practitioner Family; PCP Internal Medicine; Referring Provider Urology; Visit Provider Urology
DX: C61 Malignant neoplasm of prostate (principal); I42.0 Dilated cardiomyopathy; E11.69 Type 2 diabetes mellitus with other specified complication; E78.5 Hyperlipidemia, unspecified
CPT/HCPCS: 36415; 80061; 80076; 84153

== ENCOUNTER → 2022-09-13 | Outpatient (CLI) | payer MEDICARE, OTHER, SELFPAY ==
--- NOTE | 2022-09-13 08:25 | NM_ITS ---
CLINICAL: 77-year-old male with history of primary prostate carcinoma. WHOLE BODY 99m Tc MDP RADIONUCLIDE BONE SCINTIGRAPHY COMPARISON: Previous medical body bone scintigraphy study dated 07/20/2019 FINDINGS: Following the intravenous administration of 25.8 mCi of 99m Tc MDP, whole body bone images reveal: 1. Increased radiopharmaceutical concentration is currently expressed in the acromioclavicular and sternoclavicular compartments of both shoulders, the visualized wrist articulations bilaterally, the right-left knees, both ankle articulations, the lower cervical spine posteriorly in the midline, the region of the third, sixth and 11th thoracic vertebra, the fourth-fifth lumbar vertebra. 2. The remaining skeletal structures are scintigraphically unremarkable with the right renal image and urinary bladder activity identified. 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 NM/Bone Scan Whole Body IMPRESSION: 1. Increased radiopharmaceutical defined in the bilateral shoulders, both wrists, the right and left knees and ankle articulations bilaterally, cervical and thoracic, lumbar spine is commensurate with degenerative arthrosis. 2. Overall compared to the previous whole body bone scintigraphy study dated 07/30/2019, there is no definitive interval change. No scintigraphic evidence of diffuse axial skeletal metastatic disease is defined. Electronically Signed: Jewel Zamora, at 19:20 EST ,
== END | disposition home or self-care (01) ==
LOC: NM 08:23
PROVIDERS: PCP Internal Medicine; Visit Provider Urology
DX: C61 Malignant neoplasm of prostate (principal)
CPT/HCPCS: 78306; A9503

== ENCOUNTER → 2023-01-21 | Outpatient (CLI) | payer MEDICARE, OTHER, SELFPAY | END | disposition home or self-care (01) | LOC: BIMLAB 10:04 | PROVIDERS: PCP Internal Medicine; Visit Provider Urology | DX: C61 Malignant neoplasm of prostate (principal) | CPT/HCPCS: 36415; 84153 ==

== ENCOUNTER → 2023-02-17 | Outpatient (CLI) | payer MEDICARE, OTHER, SELFPAY ==
[2023-02-17 15:16] LABS: Hematocrit 46.1 % (40-54); Hemoglobin 14.7 g/dL (13.0-16.5); Mean Corp Hgb Conc 31.9 g/dL (32-36); Mean Corpuscular Hgb 28.9 pg (27.0-32.0); Mean Corpuscular Volume 90.6 fL (80-94); Mean Platelet Vol. 11.3 fl (6.2-12.0); Platelet Count 116 K/mm3 (150-450); RBC Distribution Width CV 15.6 % (11.6-14.6); RBC Distribution Width SD 52.1 fl (35.1-43.9); Red Blood Count 5.09 M/mm3 (4.6-6.2); White Blood Count 6.2 K/mm3 (4.4-11.0)
[2023-02-17 15:39] LABS: Microalbumin,Random Urine 53.9 mg/L (NO RANGE EST.); Protein, Urine (Random) 18.9 mg/dL (<11.9); Protein:Creat Ratio 133 mg/g CRE (0-200)
[2023-02-17 15:58] LABS: Hemoglobin A1c 7.6 % (3.8-5.6)
[2023-02-17 16:00] LABS: Vitamin D,25 Hydroxy 23.1 ng/mL
[2023-02-17 16:01] LABS: Anion Gap 6 (5-15); BUN 56 mg/dL (7-18); BUN/Creat Ratio 22.4 RATIO (10-20); Calcium,Total 9.1 mg/dL (8.5-10.1); Chloride 103 mmol/L (98-107); EST Glomerular Filtration Rate 27 mL/min (>60); Est Glom Filt Rate - Afr Amer 32 mL/min (>60); Glucose 191 mg/dL (74-106); Phosphorus 3.8 mg/dL (2.5-4.9); Potassium 4.9 mmol/L (3.5-5.1); Sodium Level 136 mmol/L (136-145)
[2023-02-17 16:37] LABS: AST(SGOT) 16 U/L (15-37); Alanine Aminotransfer ALT/SGPT 32 U/L (16-61); Albumin, Serum 3.5 g/dL (3.2-5.0); Alkaline Phosphatase 72 U/L (45-117); Bilirubin, Direct 0.12 mg/dL (0.00-0.30); Cholesterol 198 mg/dL (200); Globulin 3.8 g/dL (2.2-4.2); High Density Lipoprotein 36 mg/dL; Protein, Total 7.3 g/dL (6.4-8.2); Triglycerides 533 mg/dL
[2023-02-18 08:59] LABS: PTHIN 39.2 pg/mL (18.4-80.1)
== END | disposition home or self-care (01) ==
LOC: BIMLAB 12:00
PROVIDERS: Nurse Practitioner Family; PCP Internal Medicine; Referring Provider Internal Medicine Nephrology; Visit Provider Internal Medicine Nephrology
DX: N18.32 Chronic kidney disease, stage 3b (principal); E11.69 Type 2 diabetes mellitus with other specified complication
CPT/HCPCS: 36415; 80048; 80061; 80076; 82043; 82306; 82570; 83036; 83970; 84100; 84156; 85027

== ENCOUNTER → 2023-04-21 | Outpatient (CLI) | payer MEDICARE, OTHER, SELFPAY ==
[2023-04-21 13:00] LABS: AST(SGOT) 20 U/L (15-37); Alanine Aminotransfer ALT/SGPT 29 U/L (16-61); Albumin, Serum 3.3 g/dL (3.2-5.0); Alkaline Phosphatase 62 U/L (45-117); Bilirubin, Direct 0.19 mg/dL (0.00-0.30); Cholesterol 146 mg/dL (200); Globulin 3.6 g/dL (2.2-4.2); High Density Lipoprotein 34 mg/dL; Protein, Total 6.9 g/dL (6.4-8.2); Triglycerides 311 mg/dL; Very Low Density Lipoprotein 62 mg/dL (5-40)
[2023-04-21 13:17] LABS: PSA,Total- Diagnostic 0.51 ng/mL (0.0-4.0)
== END | disposition home or self-care (01) ==
LOC: BIMLAB 09:33
PROVIDERS: Nurse Practitioner Family; PCP Internal Medicine; Referring Provider Urology; Visit Provider Urology
DX: C61 Malignant neoplasm of prostate (principal); E11.9 Type 2 diabetes mellitus without complications; E78.5 Hyperlipidemia, unspecified
CPT/HCPCS: 36415; 80061; 80076; 84153

== ENCOUNTER → 2023-05-28 | Outpatient (CLI) | payer MEDICARE, OTHER, SELFPAY ==
[2023-05-28 12:59] LABS: T4 Free Direct 1.21 ng/dL (0.76-1.46); Thyroid Stim Hormone (TSH) 1.12 uIU/mL (0.358-3.74)
== END | disposition home or self-care (01) ==
LOC: BIMLAB 09:01
PROVIDERS: PCP Internal Medicine; Referring Provider Internal Medicine; Visit Provider Internal Medicine
DX: E11.69 Type 2 diabetes mellitus with other specified complication (principal); Z13.29 Encounter for screening for other suspected endocrine disorder
CPT/HCPCS: 36415; 84439; 84443

== ENCOUNTER → 2023-08-18 | Outpatient (CLI) | payer MEDICARE, OTHER, SELFPAY ==
[2023-08-18 13:07] LABS: Anion Gap 9 (5-15); BUN 39 mg/dL (7-18); BUN/Creat Ratio 15.8 RATIO (10-20); Calcium,Total 9.3 mg/dL (8.5-10.1); Chloride 105 mmol/L (98-107); Creatinine, Serum 2.47 mg/dL (0.70-1.30); EST Glomerular Filtration Rate 27 mL/min (>60); Est Glom Filt Rate - Afr Amer 33 mL/min (>60); Glucose 209 mg/dL (74-106); PSA,Total- Diagnostic 0.07 ng/mL (0.0-4.0); Potassium 4.7 mmol/L (3.5-5.1); Sodium Level 138 mmol/L (136-145)
[2023-08-18 16:11] LABS: Protein, Urine (Random) 20.5 mg/dL (<11.9); Protein:Creat Ratio 149 mg/g CRE (0-200)
== END | disposition home or self-care (01) ==
LOC: LAB.FUTURE 11:24 → BIMLAB 11:28
PROVIDERS: Nurse Practitioner Family; PCP Internal Medicine; Referring Provider Nurse Practitioner; Visit Provider Nurse Practitioner
DX: C61 Malignant neoplasm of prostate (principal); N18.32 Chronic kidney disease, stage 3b
CPT/HCPCS: 36415; 80048; 82570; 84153; 84156

== ENCOUNTER → 2023-09-08 | Outpatient (CLI) | payer MEDICARE, OTHER, SELFPAY ==
[2023-09-08 13:07] LABS: Anion Gap 5 (5-15); BUN 30 mg/dL (7-18); BUN/Creat Ratio 13.7 RATIO (10-20); Calcium,Total 9.4 mg/dL (8.5-10.1); Chloride 110 mmol/L (98-107); Creatinine, Serum 2.19 mg/dL (0.70-1.30); EST Glomerular Filtration Rate 31 mL/min (>60); Est Glom Filt Rate - Afr Amer 38 mL/min (>60); Glucose 206 mg/dL (74-106); Potassium 4.7 mmol/L (3.5-5.1); Sodium Level 139 mmol/L (136-145)
== END | disposition home or self-care (01) ==
LOC: BIMLAB 09:38
PROVIDERS: PCP Internal Medicine; Referring Provider Nurse Practitioner Family; Visit Provider Nurse Practitioner Family
DX: E78.5 Hyperlipidemia, unspecified (principal); E11.69 Type 2 diabetes mellitus with other specified complication; N18.4 Chronic kidney disease, stage 4 (severe); I12.9 Hypertensive chronic kidney disease with stage 1 through stage 4 chronic kidney disease, or unspecified chronic kidney disease
CPT/HCPCS: 36415; 80048

== ENCOUNTER → 2023-11-24 | Outpatient (CLI) | payer MEDICARE, OTHER, SELFPAY ==
[2023-11-24 12:09] LABS: Absolute Lymphocyte Count 1.44 X10^3/uL (0.83-4.51); Basophil# 0.05 X10^3/uL; Basophil% 0.8 % (0-1); Eosinophil# 0.26 X10^3/uL; Hematocrit 42.3 % (40-54); Lymphocyte # 1.44 X10^3/ul (0.83-4.51); Lymphocyte % 22.4 % (19-41); Mean Corp Hgb Conc 30.7 g/dL (32-36); Mean Corpuscular Hgb 26.9 pg (27.0-32.0); Mean Corpuscular Volume 87.6 fL (80-94); Mean Platelet Vol. 11.7 fl (6.2-12.0); Monocyte# 0.64 X10^3/uL; Monocyte% 9.9 % (0-10); NRBC Flagged by Analyzer 0 % (0-5); Neutrophil # 4.02 X10^3/uL (2.7-7.7); Neutrophil % 62.4 % (47-70); Platelet Count 152 K/mm3 (150-450); RBC Distribution Width SD 51.1 fl (35.1-43.9); Red Blood Count 4.83 M/mm3 (4.6-6.2); White Blood Count 6.4 K/mm3 (4.4-11.0)
[2023-11-24 12:40] LABS: Anion Gap 6 (5-15); BUN 34 mg/dL (7-18); BUN/Creat Ratio 12.8 RATIO (10-20); Calcium,Total 9.7 mg/dL (8.5-10.1); Chloride 105 mmol/L (98-107); Creatinine, Serum 2.65 mg/dL (0.70-1.30); EST Glomerular Filtration Rate 25 mL/min (>60); Est Glom Filt Rate - Afr Amer 30 mL/min (>60); Glucose 200 mg/dL (74-106); Potassium 4.9 mmol/L (3.5-5.1); Sodium Level 136 mmol/L (136-145)
[2023-11-24 12:56] LABS: AST(SGOT) 24 U/L (15-37); Alanine Aminotransfer ALT/SGPT 27 U/L (16-61); Albumin, Serum 3.8 g/dL (3.2-5.0); Alkaline Phosphatase 65 U/L (45-117); Bilirubin, Direct 0.19 mg/dL (0.00-0.30); Cholesterol 133 mg/dL (200); Globulin 3.7 g/dL (2.2-4.2); High Density Lipoprotein 32 mg/dL; Protein, Total 7.5 g/dL (6.4-8.2); Triglycerides 354 mg/dL; Very Low Density Lipoprotein 71 mg/dL (5-40)
== END | disposition home or self-care (01) ==
LOC: BIMLAB 09:04
PROVIDERS: Nurse Practitioner Family; PCP Internal Medicine; Visit Provider Internal Medicine
DX: I10 Essential (primary) hypertension (principal); E11.9 Type 2 diabetes mellitus without complications; E78.00 Pure hypercholesterolemia, unspecified
CPT/HCPCS: 36415; 80048; 80061; 80076; 85025

== ENCOUNTER → 2023-12-17 | Outpatient (CLI) | payer MEDICARE, OTHER, SELFPAY ==
[2023-12-17 13:18] LABS: PSA,Total- Diagnostic 0.36 ng/mL (0.0-4.0)
== END | disposition home or self-care (01) ==
LOC: BIMLAB 10:13
PROVIDERS: PCP Internal Medicine; Referring Provider Nurse Practitioner; Visit Provider Nurse Practitioner
DX: C61 Malignant neoplasm of prostate (principal)
CPT/HCPCS: 36415; 84153

== ENCOUNTER → 2023-12-29 | Outpatient (CLI) | payer MEDICARE, OTHER, SELFPAY ==
[2023-12-29 16:50] LABS: Absolute Lymphocyte Count 1.33 X10^3/uL (0.83-4.51); Absolute Neutrophil Count 3.6 X10^3/uL (2.0-7.7); Basophil# 0.03 X10^3/uL; Basophil% 0.5 % (0-1); Eosinophil# 0.17 X10^3/uL; Hematocrit 39.6 % (40-54); Hemoglobin 11.9 g/dL (13.0-16.5); Lymphocyte # 1.33 X10^3/ul (0.83-4.51); Lymphocyte % 23.3 % (19-41); Mean Corp Hgb Conc 30.1 g/dL (32-36); Mean Corpuscular Hgb 26.9 pg (27.0-32.0); Mean Corpuscular Volume 89.6 fL (80-94); Mean Platelet Vol. 11.3 fl (6.2-12.0); Monocyte# 0.53 X10^3/uL; Monocyte% 9.3 % (0-10); NRBC Flagged by Analyzer 0 % (0-5); Neutrophil # 3.61 X10^3/uL (2.7-7.7); Neutrophil % 63.4 % (47-70); Platelet Count 133 K/mm3 (150-450); RBC Distribution Width CV 16.7 % (11.6-14.6); Red Blood Count 4.42 M/mm3 (4.6-6.2); White Blood Count 5.7 K/mm3 (4.4-11.0)
[2023-12-29 22:09] LABS: ALB/GLOB Ratio 0.9 RATIO (0.9-2.4); AST(SGOT) 19 U/L (15-37); Alanine Aminotransfer ALT/SGPT 23 U/L (16-61); Albumin, Serum 3.6 g/dL (3.2-5.0); Alkaline Phosphatase 65 U/L (45-117); Anion Gap 7 (5-15); BUN 33 mg/dL (7-18); BUN/Creat Ratio 13.9 RATIO (10-20); Calcium,Total 9.2 mg/dL (8.5-10.1); Chloride 107 mmol/L (98-107); Creatinine, Serum 2.38 mg/dL (0.70-1.30); EST Glomerular Filtration Rate 28 mL/min (>60); Est Glom Filt Rate - Afr Amer 34 mL/min (>60); Globulin 3.8 g/dL (2.2-4.2); Glucose 161 mg/dL (74-106); Potassium 4.7 mmol/L (3.5-5.1); Protein, Total 7.4 g/dL (6.4-8.2); Sodium Level 137 mmol/L (136-145)
== END | disposition home or self-care (01) ==
LOC: BIMLAB 15:11
PROVIDERS: PCP Internal Medicine; Visit Provider Internal Medicine
DX: R19.7 Diarrhea, unspecified (principal)
CPT/HCPCS: 36415; 80053; 85025

== ENCOUNTER → 2023-12-31 | Outpatient (CLI) | payer MEDICARE, OTHER, SELFPAY | END | disposition home or self-care (01) | LOC: LABSPEC 11:19 | PROVIDERS: PCP Internal Medicine; Referring Provider Internal Medicine; Visit Provider Internal Medicine | DX: R19.7 Diarrhea, unspecified (principal) | CPT/HCPCS: 87493 ==

== ENCOUNTER → 2024-02-04 | Outpatient (CLI) | payer MEDICARE, OTHER, SELFPAY ==
[2024-02-04 12:35] LABS: Anion Gap 8 (5-15); BUN 37 mg/dL (7-18); BUN/Creat Ratio 14.2 RATIO (10-20); Calcium,Total 9.1 mg/dL (8.5-10.1); Chloride 109 mmol/L (98-107); Creatinine, Serum 2.61 mg/dL (0.70-1.30); EST Glomerular Filtration Rate 25 mL/min (>60); Est Glom Filt Rate - Afr Amer 31 mL/min (>60); Glucose 214 mg/dL (74-106); Potassium 5.3 mmol/L (3.5-5.1); Protein:Creat Ratio 207 mg/g CRE (0-200); Sodium Level 139 mmol/L (136-145)
== END | disposition home or self-care (01) ==
LOC: BIMLAB 10:57
PROVIDERS: PCP Internal Medicine; Referring Provider Internal Medicine Nephrology; Visit Provider Internal Medicine Nephrology
DX: N18.32 Chronic kidney disease, stage 3b (principal)
CPT/HCPCS: 36415; 80048; 82570; 84156

== ENCOUNTER → 2024-06-22 | Outpatient (CLI) | payer MEDICARE, OTHER, SELFPAY ==
[2024-06-22 17:22] LABS: AST(SGOT) 20 U/L (15-37); Alanine Aminotransfer ALT/SGPT 26 U/L (16-61); Albumin, Serum 4.1 g/dL (3.2-5.0); Alkaline Phosphatase 82 U/L (45-117); Bilirubin, Direct 0.22 mg/dL (0.00-0.30); Cholesterol 146 mg/dL (200); Globulin 4.3 g/dL (2.2-4.2); High Density Lipoprotein 30 mg/dL; Protein, Total 8.4 g/dL (6.4-8.2); Triglycerides 207 mg/dL; Very Low Density Lipoprotein 41 mg/dL (5-40)
== END | disposition home or self-care (01) ==
LOC: BIMLAB 14:42
PROVIDERS: Nurse Practitioner Family; PCP Internal Medicine; Referring Provider Nurse Practitioner; Visit Provider Nurse Practitioner
DX: C61 Malignant neoplasm of prostate (principal); E78.00 Pure hypercholesterolemia, unspecified
CPT/HCPCS: 36415; 80061; 80076; 84153

== ENCOUNTER → 2024-07-15 | Outpatient (CLI) | payer MEDICARE, OTHER, SELFPAY ==
[2024-07-15 16:32] LABS: Absolute Lymphocyte Count 1.49 X10^3/uL (0.83-4.51); Absolute Neutrophil Count 3.8 X10^3/uL (2.0-7.7); Basophil# 0.06 X10^3/uL; Eosinophil# 0.25 X10^3/uL; Hemoglobin 15.6 g/dL (13.0-16.5); Lymphocyte # 1.49 X10^3/ul (0.83-4.51); Lymphocyte % 23.9 % (19-41); Mean Corp Hgb Conc 30.6 g/dL (32-36); Mean Corpuscular Volume 88.2 fL (80-94); Mean Platelet Vol. 11.1 fl (6.2-12.0); Monocyte# 0.59 X10^3/uL; Monocyte% 9.5 % (0-10); NRBC Flagged by Analyzer 0 % (0-5); Neutrophil # 3.82 X10^3/uL (2.7-7.7); Neutrophil % 61.3 % (47-70); Platelet Count 109 K/mm3 (150-450); RBC Distribution Width CV 15.7 % (11.6-14.6); RBC Distribution Width SD 50.5 fl (35.1-43.9); Red Blood Count 5.78 M/mm3 (4.6-6.2); White Blood Count 6.2 K/mm3 (4.4-11.0)
[2024-07-15 16:45] LABS: Anion Gap 3 (5-15); BUN 29 mg/dL (7-18); BUN/Creat Ratio 12.7 RATIO (10-20); Calcium,Total 9.6 mg/dL (8.5-10.1); Chloride 110 mmol/L (98-107); Creatinine, Serum 2.29 mg/dL (0.70-1.30); EST Glomerular Filtration Rate 30 mL/min (>60); Est Glom Filt Rate - Afr Amer 36 mL/min (>60); Glucose 118 mg/dL (74-106); Potassium 5.4 mmol/L (3.5-5.1); Sodium Level 138 mmol/L (136-145)
== END | disposition home or self-care (01) ==
LOC: BIMLAB 15:52
PROVIDERS: PCP Internal Medicine; Referring Provider Internal Medicine; Visit Provider Internal Medicine
DX: E11.9 Type 2 diabetes mellitus without complications (principal)
CPT/HCPCS: 36415; 80048; 85025

== ENCOUNTER → 2024-07-23 | Outpatient (CLI) | payer MEDICARE, OTHER, SELFPAY ==
[2024-07-23 15:21] LABS: Hematocrit 49.3 % (40-54); Hemoglobin 15.4 g/dL (13.0-16.5); Mean Corp Hgb Conc 31.2 g/dL (32-36); Mean Corpuscular Hgb 27.5 pg (27.0-32.0); Mean Corpuscular Volume 87.9 fL (80-94); Mean Platelet Vol. 11.8 fl (6.2-12.0); Platelet Count 147 K/mm3 (150-450); RBC Distribution Width CV 15.4 % (11.6-14.6); RBC Distribution Width SD 49.2 fl (35.1-43.9); Red Blood Count 5.61 M/mm3 (4.6-6.2); White Blood Count 6.6 K/mm3 (4.4-11.0)
[2024-07-23 15:55] LABS: Anion Gap 5 (5-15); BUN 31 mg/dL (7-18); BUN/Creat Ratio 14.5 RATIO (10-20); Calcium,Total 9.2 mg/dL (8.5-10.1); Chloride 109 mmol/L (98-107); Creatinine, Serum 2.14 mg/dL (0.70-1.30); EST Glomerular Filtration Rate 32 mL/min (>60); Est Glom Filt Rate - Afr Amer 39 mL/min (>60); Glucose 99 mg/dL (74-106); Potassium 4.3 mmol/L (3.5-5.1); Sodium Level 138 mmol/L (136-145)
[2024-07-23 16:40] LABS: Protein:Creat Ratio 486 mg/g CRE (0-200)
== END | disposition home or self-care (01) ==
LOC: BIMLAB 11:38
PROVIDERS: PCP Internal Medicine; Referring Provider Internal Medicine Nephrology; Visit Provider Internal Medicine Nephrology
DX: N18.32 Chronic kidney disease, stage 3b (principal)
CPT/HCPCS: 36415; 80048; 82570; 84156; 85027

== ENCOUNTER → 2024-08-16 | Outpatient (CLI) | payer MEDICARE, OTHER, SELFPAY ==
[2024-08-16 12:21] LABS: Hematocrit 46.3 % (40-54); Hemoglobin 14.4 g/dL (13.0-16.5); Mean Corp Hgb Conc 31.1 g/dL (32-36); Mean Corpuscular Hgb 26.9 pg (27.0-32.0); Mean Corpuscular Volume 86.5 fL (80-94); Mean Platelet Vol. 11.3 fl (6.2-12.0); Platelet Count 170 K/mm3 (150-450); RBC Distribution Width SD 47.3 fl (35.1-43.9); Red Blood Count 5.35 M/mm3 (4.6-6.2); White Blood Count 6.4 K/mm3 (4.4-11.0)
[2024-08-16 12:27] LABS: Anion Gap 8 (5-15); BUN 51 mg/dL (7-18); BUN/Creat Ratio 20.1 RATIO (10-20); Calcium,Total 9.5 mg/dL (8.5-10.1); Chloride 105 mmol/L (98-107); Creatinine, Serum 2.54 mg/dL (0.70-1.30); EST Glomerular Filtration Rate 26 mL/min (>60); Est Glom Filt Rate - Afr Amer 32 mL/min (>60); Glucose 203 mg/dL (74-106); Potassium 4.4 mmol/L (3.5-5.1); Sodium Level 139 mmol/L (136-145)
[2024-08-16 13:04] LABS: Protein, Urine (Random) 24.7 mg/dL (<11.9); Protein:Creat Ratio 152 mg/g CRE (0-200)
== END | disposition home or self-care (01) ==
LOC: BIMLAB 11:04
PROVIDERS: PCP Internal Medicine; Referring Provider Internal Medicine Nephrology; Visit Provider Internal Medicine Nephrology
DX: N18.32 Chronic kidney disease, stage 3b (principal)
CPT/HCPCS: 36415; 80048; 82570; 84156; 85027

== ENCOUNTER → 2024-09-30 | Outpatient (CLI) | payer MEDICARE, OTHER, SELFPAY ==
[2024-09-30 17:50] LABS: PSA,Total- Diagnostic 1.35 ng/mL (0.00-4.00)
== END | disposition home or self-care (01) ==
LOC: BIMLAB 15:12
PROVIDERS: PCP Internal Medicine; Referring Provider Nurse Practitioner; Visit Provider Nurse Practitioner
DX: C61 Malignant neoplasm of prostate (principal)
CPT/HCPCS: 36415; 84153

== ENCOUNTER → 2024-10-13 | Outpatient (CLI) | payer MEDICARE, OTHER, SELFPAY ==
[2024-10-15 13:08] LABS: Vitamin D 1,25-Dihydroxy 6.3 pg/mL (24.8-81.5)
== END | disposition home or self-care (01) ==
LOC: BIMLAB 09:57
PROVIDERS: PCP Internal Medicine; Referring Provider Internal Medicine; Visit Provider Internal Medicine
DX: I12.9 Hypertensive chronic kidney disease with stage 1 through stage 4 chronic kidney disease, or unspecified chronic kidney disease (principal); N18.4 Chronic kidney disease, stage 4 (severe)
CPT/HCPCS: 36415; 82652; 84439; 84443

== ENCOUNTER → 2025-02-10 | Outpatient (CLI) | payer MEDICARE, OTHER, SELFPAY ==
[2025-02-10 12:33] LABS: Hematocrit 44.7 % (40-54); Hemoglobin 13.8 g/dL (13.0-16.5); Mean Corp Hgb Conc 30.9 g/dL (32-36); Mean Corpuscular Volume 89.8 fL (80-94); Mean Platelet Vol. 11.9 fl (6.2-12.0); Platelet Count 122 K/mm3 (150-450); RBC Distribution Width CV 17.0 % (11.6-14.6); RBC Distribution Width SD 56.5 fl (35.1-43.9); Red Blood Count 4.98 M/mm3 (4.6-6.2); White Blood Count 5.8 K/mm3 (4.4-11.0)
[2025-02-10 13:06] LABS: Creatinine, Urine (random) 109.00 mg/dL (39.00-259.00); Protein, Urine (Random) 20.0 mg/dL (0.0-12.0); Protein:Creat Ratio 183 mg/g CRE (0-200)
[2025-02-10 13:07] LABS: Anion Gap 11 (5-15); BUN 39 mg/dL (4-19); BUN/Creat Ratio 14.1 RATIO (10-20); Calcium,Total 9.2 mg/dL (7.6-11.0); Carbon Dioxide 22.9 mmol/L (21.0-32.0); Chloride 105 mmol/L (98-108); Glucose 186 mg/dL (70-99); Potassium 6.3 mmol/L (3.3-5.1)
[2025-02-10 13:13] LABS: AST(SGOT) 18 U/L (<=37); Alanine Aminotransfer ALT/SGPT 20 U/L (<=46); Albumin, Serum 4.0 g/dL (3.4-4.8); Alkaline Phosphatase 61 U/L (40-129); Bilirubin, Direct 0.25 mg/dL (0.00-0.30); Cholesterol 134 mg/dL (<=200); Globulin 3.0 g/dL (2.2-4.2); Low Density Lipoprotein Calc. 59 mg/dL; Triglycerides 216 mg/dL; Very Low Density Lipoprotein 43 mg/dL (5-40); cholesterol:hdl ratio screen 4.24
== END | disposition home or self-care (01) ==
LOC: BIMLAB 10:51
PROVIDERS: Nurse Practitioner Family; PCP Internal Medicine; Referring Provider Internal Medicine Nephrology; Visit Provider Internal Medicine Nephrology
DX: N18.32 Chronic kidney disease, stage 3b (principal)
CPT/HCPCS: 36415; 80048; 80061; 80076; 82570; 84156; 85027

== ENCOUNTER → 2025-02-14 | Outpatient (CLI) | payer MEDICARE, OTHER, SELFPAY ==
[2025-02-14 13:29] LABS: Anion Gap 13 (5-15); BUN 44 mg/dL (4-19); BUN/Creat Ratio 17.4 RATIO (10-20); Calcium,Total 8.8 mg/dL (7.6-11.0); Carbon Dioxide 22.3 mmol/L (21.0-32.0); Chloride 104 mmol/L (98-108); Glucose 133 mg/dL (70-99); Potassium 4.4 mmol/L (3.3-5.1)
== END | disposition home or self-care (01) ==
PROVIDERS: PCP Internal Medicine; Visit Provider Internal Medicine Nephrology
DX: E87.5 Hyperkalemia (principal)
CPT/HCPCS: 36415; 80048

== ENCOUNTER → 2025-03-04 | Outpatient (CLI) | payer MEDICARE, OTHER, SELFPAY ==
[2025-03-04 16:40] LABS: PSA,Total- Diagnostic 10.90 ng/mL (0.00-4.00)
== END | disposition home or self-care (01) ==
LOC: LAB 15:31
PROVIDERS: PCP Internal Medicine; Referring Provider Nurse Practitioner; Visit Provider Nurse Practitioner
DX: C61 Malignant neoplasm of prostate (principal)
CPT/HCPCS: 36415; 84153

== ENCOUNTER → 2025-03-05 | Outpatient (CLI) | payer MEDICARE, OTHER, SELFPAY ==
--- OUTSIDE RECORDS SUMMARY | 2025-03-05 07:42 | XMS RPT_ITS | CCD ---
Author Organization [facility] Care Team Providers Care Lead Python Developer Name Role Phone Fast, Lola A Unavailable [facility] OFFICE, Leslye Arie Unavailable Wolf Gaxiola Unavailable Fast, Lola A Unavailable Manchak, Brandie Unavailable Unavailable Bethany Bradford Unavailable Unavailable Unavailable Unavailable LongFernandon L Unavailable Unavailable Fast, Lola A Unavailable [facility], Leslye Sargent Unavailable Wolf Gaxiola Unavailable Fast, Lola A Unavailable Manchak, Brandie Unavailable Unavailable Long, Arabella L Unavailable Unavailable Lorena Bradfordfer Unavailable Unavailable Unavailable Unavailable Fast, Lola A Attending Unavailable Fast, Lola A Referring Unavailable Fast, Lola A Consulting Unavailable Manchak, Brandie Unavailable Unavailable Dr. Shane Schreiber Primary Care Provider [phone] Dr. Shane Schreiber Referring Provider [phone] Dr. Dante Hilliard Attending Provider Era Otero Attending Provider Unavailable Dr. Shane Schreiber Attending Provider [phone] Dr. Dante Hilliard Referring Provider Era Otero Attending Provider Unavailable Roof CHECKOUT OPERATOR, CHECKOUT OPERATOR-C Memo Myers Attending Provider Shane Schreiber MD Primary Care Provider [phone] Dr. Shane Schreiber Primary Care Provider [phone] Dr. Dante Hilliard Attending Provider [phone] Dr. Dante Hilliard Referring Provider [phone] Dr. Shane Schreiber Referring Provider [phone] Abdoul, Dr. Moreno Attending Provider [phone] Dr. Shane Schreiber Primary Care Provider [phone] Abdoul, Dr. Moreno Attending Provider [phone] Abdoul, Dr. Moreno Referring Provider [phone] Era Otero Attending Provider Unavailable Dr. Shane Schreiber Primary Care Provider [phone] Babak, Dr. Howell Attending Provider [phone] Dr. Dante Hilliard Referring Provider [phone] Dr. Shane Schreiber Referring Provider [phone] Era Otero Attending Provider Unavailable Dr. Shane Schreiber Attending Provider [phone] Roof CHECKOUT OPERATOR, CHECKOUT OPERATOR-Silvia Myers Attending Provider Care Physician, No Primary Primary Care Provider Unavailable Dr. Shane Schreiber Primary Care Provider [phone]) Dr. Dante Hilliard Attending Provider [phone])- SHANE SCHREIBER MD Primary Care Physician [phone] DR MICHEL PRICE DPM Attending Unavailabl SHANE Ashton MD Primary Care Unavailab Dr. hSane Turner Primary Care Provider [phone] 0) Dr. Dante Hilliard Attending Provider [phone] Dr. Dante Hilliard Referring Provider [phone])- [phone] Care Physician, No Primary Referring Provider Un available Dr. Shane Schreiber Attending Provider [phone] Dr. Shane Schreiber Primary Care Provider [phone] Dr. Shane Schreiber Attending Provider [phone] Dr. Shane Schreiber Referring Provider [phone])2 Era Otero Attending Provider Unavailable FADUMO Moreau Attending Provider Unavail able Roof CHECKOUT OPERATOR, CHECKOUT OPERATOR-Silvia Myers Attending Provider [phone] Dr. Shane Schreiber Primary Care Provider [phone] 0) Dr. Shane Schreiber Attending Provider [phone])2 Dr. Shane Schreiber Referring Provider [phone])2 Dr. Dante Hilliard Attending Provider [phone])- Dr. Dante Hilliard Referring Provider [phone])- FADUMO Moreau Attending Provider Unavail able Roof CHECKOUT OPERATOR, CHECKOUT OPERATOR-Silvia Myers Attending Provider [phone] Dr. Shane Schreiber Primary Care Provider 1(33 0) Dr. Shane Schreiber Attending Provider [phone])2 Dr. Shane Schreiber Referring Provider [phone])2 Dr. Dante Hilliard Attending Provider 1(330) Dr. Dante Hilliard Referring Provider 1(330)- Roof CHECKOUT OPERATOR, CHECKOUT OPERATOR-Silvia Myers Attending Provider Shane Schreiber MD Primary Care Provider 1(3 30) Shane Schreiber MD Primary Care Provider 1(3 30) Dante Hilliard MD Unavailable Dr. Shane Schreiber MD Primary Care Provider Dr. Dante Hilliard MD Attending Provider [phone] Dr. Dante Hilliard MD Referring Provider [phone] Jocelyn Mendoza Attending Provider Jocelyn Mendoza Referring Provider Dr. Shane Schreiber MD Attending Provider [phone] 0) Abdoul DODGE, Dr. Moreno Referring Provider [phone] Deepika DODGE, Dr. Mcmahan Attending Provider Deepika DODGE, Dr. Mcmahan Referring Provider Lorenza Montano Attending Provider [phone] Abdoul DODGE, Dr. Moreno Primary Care Provider Dr. Dante Hilliard MD Attending Provider [phone] Dr. Dante Hililard MD Referring Provider [phone] JOHAN JIMENEZ Admitting Unavailable BARBARANABILY R Attending Unavailable OLEGHE, EFEWONGBE B Primary Care Unavailable Abdoul DODGE, Dr. Moreno Primary Care Provider Jocelyn Mendoza Attending Provider Jocelyn Mendoza Referring Provider Dr. Shane Schreiber MD Attending Provider [phone] Dr. Shane Schreiber MD Referring Provider [phone] Dr. Dante Hilliard MD Attending Provider [phone] Dr. Dante Hilliard MD Referring Provider OLEGHE, EFEWONGBE B Primary Care Unavailable SELF Referring Unavailable FRANKLIN TONY Attending Unavailable BARBARANABILY R Attending Unavailable OLEGHE, EFEWONGBE B Primary Care Unavailable SELF Referring Unavailable BARBARA, JOHAN R Referring Unavailable OLEGHE, EFEWONGBE B Primary Care Unavailable FRANKLIN TONY Attending Unavailable OLEGHE, EFEWONGBE B Primary Care Unavailable BARBARA, JOHAN R Attending Unavailable OLEGHE, EFEWONGBE B Primary Care Unavailable BARBARA, JOHAN R Attending Unavailable SELF Referring Unavailable OLEGHE, EFEWONGBE B Primary Care Unavailable BARBARA, JOHAN R Attending Unavailable OLEGHE, EFEWONGBE B Primary Care Unavailable BARBARA, JOHAN R Referring Unavailable OLEGHE, EFEWONGBE B Primary Care Unavailable JOHAN JIMENEZ Attending Unavailable OLEGHE, EFEWONGBE B Primary Care Unavailable FRANKLIN TONY Attending Unavailable OLEGHE, EFEWONGBE B Primary Care Unavailable OLEGHE, EFEWONGBE B Primary Care Unavailable SELF Referring Unavailable FRANKLIN TONY Attending Unavailable Babak DODGE, Dr. Howell Referring Provider Abdoul DODGE, Dr. Moreno Primary Care Provider Abdoul DODGE, Dr. Moreno Primary Care Provider Abdoul DODGE, Dr. Moreno Attending Provider [phone] Abdoul DODGE, Dr. Moreno Referring Provider [phone] Deepika DODGE, Dr. Mcmahan Attending Provider Deepika DODGE, Dr. Mcmahan Referring Provider Roof CHECKOUT OPERATOR-CMemo Attending Provider DeepikaDeejay parrayaprakas Attending Unavailable Deepika, Jayaprakas Referring Unavailable Oleghe, Efewongbe Primary Care Unavailable Roof Memo WARREN Attending Unavailable Memo Gannon NP Referring Unavailable Oleghe, Efewongbe Primary Care Unavailable Neal Hilliardril Attending Unavailable Oleghe, Efewongbe Primary Care Unavailable Babak, Dante Referring Unavailable Deepika, Deejayyaprakas Attending Unavailable Deepika, Jayaprakas Referring Unavailable Oleghe, Efewongbe Primary Care Unavailable Deepika, Jayaprakas Attending Unavailable Deepika, Jayaprakas Referring Unavailable Oleghe, Efewongbe Primary Care Unavailable Oleghe, Efewongbe Attending Unavailable Oleghe, Efewongbe Referring Unavailable Oleghe, Efewongbe Primary Care Unavailable Jocelyn Mendoza Attending Unavailable Jocelyn Mendoza Referring Unavailable Oleghe, Efewongbe Primary Care Unavailable Oleghe, Efewongbe Attending Unavailable Oleghe, Efewongbe Referring Unavailable Oleghe, Efewongbe Primary Care Unavailable Roof Memo WARREN Attending Unavailable Oleghe, Efewongbe Referring Unavailable Oleghe, Efewongbe Primary Care Unavailable Babak, Dante Attending Unavailable Oleghe, Efewongbe Primary Care Unavailable Babak, Omer Referring Unavailable Babak, Omer Attending Unavailable Oleghe, Efewongbe Primary Care Unavailable Oleghe, Efewongbe Attending Unavailable Oleghe, Efewongbe Referring Unavailable Oleghe, Efewongbe Primary Care Unavailable Babak, Omer Attending Unavailable Oleghe, Efewongbe Primary Care Unavailable Babak, Dante Referring Unavailable Babak, Omer Attending Unavailable Oleghe, Efewongbe Primary Care Unavailable Babak, Dante Referring Unavailable Babak, Dante Attending Unavailable Oleghe, Efewongbe Primary Care Unavailable Babak, Dante Referring Unavailable Babak, Dante Attending Unavailable Oleghe, Efewongbe Primary Care Unavailable Oleghe, Efewongbe Primary Care Unavailable Babak, Omer Attending Unavailable Babak, Dante Referring Unavailable Babak, Omer Attending Unavailable Oleghe, Efewongbe Primary Care Unavailable Babak, Omer Referring Unavailable Babak, Dante Attending Unavailable Oleghe, Efewongbe Primary Care Unavailable Babak, Omer Referring Unavailable Oleghe, Efewongbe Attending Unavailable Oleghe, Efewongbe Referring Unavailable Oleghe, Efewongbe Primary Care Unavailable Babak, Omer Attending Unavailable Oleghe, Efewongbe Primary Care Unavailable Babak, Omer Referring Unavailable Oleghe, Efewongbe Referring Unavailable Oleghe, Efewongbe Primary Care Unavailable Lorenza Montano Attending Unavail able [place], Jocelyn Attending Unavailable [place], Jocelyn Referring Unavailable Oleghe, Efewongbe Primary Care Unavailable Babak, Dante Attending Unavailable Oleghe, Efewongbe Primary Care Unavailable Babak, Omer Referring Unavailable Oleghe, Efewongbe Attending Unavailable Oleghe, Efewongbe Referring Unavailable Oleghe, Efewongbe Primary Care Unavailable Babak, Dante Attending Unavailable Oleghe, Efewongbe Primary Care Unavailable Babak, Dante Referring Unavailable Babak, Omer Attending Unavailable Oleghe, Efewongbe Primary Care Unavailable Babak, Omer Referring Unavailable Oleghe, Efewongbe Attending Unavailable Oleghe, Efewongbe Referring Unavailable Oleghe, Efewongbe Primary Care Unavailable Babak, Dante Attending Unavailable Oleghe, Efewongbe Primary Care Unavailable Babak, Dante Referring Unavailable Babak, Omer Attending Unavailable Oleghe, Efewongbe Primary Care Unavailable Babak, Omer Referring Unavailable Babak, Dante Attending Unavailable Oleghe, Efewongbe Primary Care Unavailable Babak, Omer Referring Unavailable Babak, Dante Attending Unavailable Oleghe, Efewongbe Primary Care Unavailable Babak, Omer Attending Unavailable Oleghe, Efewongbe Primary Care Unavailable Babak, Dante Referring Unavailable Babak, Dante Attending Unavailable Oleghe, Efewongbe Primary Care Unavailable Babak, Dante Referring Unavailable Babak, Omer Attending Unavailable Oleghe, Efewongbe Referring Unavailable Oleghe, Efewongbe Primary Care Unavailable Deepika, Jayaprakas Attending Unavailable Oleghe, Efewongbe Primary Care Unavailable Allergies Allergy Classification Reported Allergen(s) Allergy Type Date of Onset Reaction(s) Facility NEGATED: Highlighted row has been ruled out! (1 source) allergy to substance 5 [facility] Work Phone: NEGATED: Highlighted row has been ruled out! (1 source) drug allergy [facility] Work Phone: NEGATED: Highlighted row has been ruled out! (1 source) allergy to substance 5 [facility] Work Phone: NEGATED: Highlighted row has been ruled out! (1 source) drug allergy [facility] Work Phone: NEGATED: Highlighted row has been ruled out! (1 source) allergy to substance 5 [facility] Work Phone: NEGATED: Highlighted row has been ruled out! (1 source) drug allergy [facility] Work Phone: Medications Current Medications Medication Drug Class(es) Dates Sig (Normalized) Sig (Original) Acetaminophen (12 sources) acetaminophen (TYLENOL EXTRA STRENGTH ORAL) Take by mouth. Active benoxinate hydrochloride 4 mg/ml / fluorescein sodium 3 mg/ml ophthalmic solution (4 sources) Diagnostic Dye Start: 01-20-2025 End: 01-20-2025 fluorescein-benoxina te 0.3-0.4 % 1 drop (FLURESS) Start: 01-20-2025 End: 01-20-2025 1 drop, BOTH EYES, DIRECT ED, Starting on Fri01/20/25 at 1000, Until Fri01/20/25 at 2159, Administer for applanation tonometry. In the event of a Fluress shortage, administer Laura-Fluor 1 drop into both eyes as directed for applanation tonometry Start: 09-13-2024 End: 09-13-2024 fluorescein-benoxinate 0.25- 0.4 % 1 Drop (FLURESS) Start: 09-13-2024 End: 09-13-2024 1 Drop, BOTH EYES, ONCE, 1 d ose, On Fri09/13/24 at 1200, FOR THE EYE dapagliflozin 10 mg oral tablet (20 sources) Sodium-Glucose Cotransporter 2 Inhibitor Start: 08-20-2023 End: 08-26-2024 take 1 tablet by mouth once daily Dapagliflozin Propanediol (Farxiga) 10 mg tablet Active 10 mg PO DAILY 90 August 26, 2024 3:40pm glimepiride 4 mg oral tablet (20 sources) Sulfonylurea Start: 01-26-2025 take 1 tablet by mouth twice daily at breakfast Glimepiride 4 mg tablet Active 4 mg PO TWICE A DAY 180 January 26, 2025 11:25am administer with breakfast Start: 03-01-2024 End: 01-26-2025 take 1 tablet by mouth once daily at breakfast Glimepiride 4 mg tablet Discontinued 4 mg PO EVERY MORNING 90 March 01, 2024 8:39am January 26, 2025 11:26am administer with breakfast Start: 12-30-2023 End: 03-01-2024 take 1 tablet by mouth once daily at breakfast Glimepiride 2 mg tablet Discontinued 2 mg PO EVERY MORNING 60 December 30, 2023 12:50pm March 01, 2024 8:39am administer with breakfast Start: 08-18-2021 glimepiride (A MARYL) 1 mg tablet 4 mg. 08/18/2021 Active Start: 04-17-2021 End: 12-30-2023 take 1 tablet by mouth once daily at breakfast Glimepiride 1 mg tablet Discontinued 1 mg PO EVERY MORNING 90 3 December 10, 2023 1:05pm December 30, 2023 12:50pm administer with breakfast hydrocortisone 25 mg/ml topical cream (20 sources) Corticosteroid Start: 03-01-2024 Hydrocortisone 2.5 % cream Active 1 NMA TOPICAL TWICE A DAY as needed for rash 454 2 March 01, 2024 8:42am Start: 04-19-2020 End: 03-01-2024 Hydrocortisone 2.5 % cream D iscontinued 1 NMA TOPICAL TWICE A DAY as needed for rash 454 June 21, 2020 9:28am March 01, 2024 8:43am Start: 04-19-2020 End: 06-21-2020 Hydrocortisone Active 1 APPL IC TOPICAL TWICE A DAY 454 June 21, 2020 8:28am Start: 04-19-2020 End: 04-19-2020 Hydrocortisone 1 % ointment Discontinued 1 NMA TOPICAL TWICE A DAY as needed for rash 28 April 19, 2020 12:00am April 19, 2020 11:21am ketorolac tromethamine 5 mg/ml ophthalmic solution (14 sources) Nonsteroidal Anti-inflammatory Drug, Cyclooxygenase Inhibitor Start: 12-25-2024 keTORolac (ACUL AR) 0.5 % ophthalmic solution Use 1 drop in the left eye four times daily. Start drops 2 (two) days prior to your scheduled surgery date 4 four times a day . Use one drop the morning of surgery. Restart following surgery as per instructions given 5 mL 1 12/25/2024 Active Start: 12-02-2024 End: 12-23-2024 keTORolac (ACULAR) 0.5 % oph thalmic solution Use 1 drop in the left eye four times daily. Start drops 2 (two) days prior to your scheduled surgery date 4 four times a day . Use one drop the morning of surgery. Restart following surgery as per instructions given 5 mL 1 12/02/2024 12/23/2024 Discontinued Start: 09-02-2024 keTORolac (ACU LAR) 0.5 % ophthalmic solution Use 1 Drop in the right eye four times daily. Start drops 2 (two) days prior to your scheduled surgery date 4 four times a day . Use one drop the morning of surgery. Restart following surgery as per instructions given 5 mL 1 09/02/2024 Active Start: 08-19-2024 End: 08-25-2024 keTORolac (ACULAR) 0.5 % oph thalmic solution Use 1 Drop in the right eye four times daily. Start drops 2 (two) days prior to your scheduled surgery date 4 four times a day . Use one drop the morning of surgery. Restart following surgery as per instructions given 5 mL 1 08/19/2024 08/25/2024 Discontinued ketotifen 0.25 mg/ml ophthalmic solution (5 sources) Histamine-1 Receptor Inhibitor Start: 02-12-2022 End: 08-25-2024 ketotifen fumarate (ZADITOR) 0.025 % (0.035 %) ophthalmic solution Use 1 Drop in both eyes twice daily. 5 mL 3 02/12/2022 08/25/2024 Discontinued Start: 02-12-2022 ketotifen fuma rate (ZADITOR) 0.025 % (0.035 %) ophthalmic solution Use 1 Drop in both eyes twice daily. 5 mL 3 02/12/2022 Active Comment on above: Use 1 Drop in both e yes twice daily. moxifloxacin 5 mg/ml ophthalmic solution (14 sources) Quinolone Antimicrobial Start: 12-25-2024 moxifloxacin (VIGAMOX) 0.5 % ophthalmic solution Use 1 drop in the left eye four times daily. Start drops 2 (two) days prior to your scheduled surgery date 4 four times a day . Use one drop the morning of surgery. Restart following surgery as per instructions given 3 mL 12/25/2024 Active Start: 12-02-2024 End: 12-23-2024 moxifloxacin (VIGAMOX) 0.5 % ophthalmic solution Use 1 drop in the left eye four times daily. Start drops 2 (two) days prior to your scheduled surgery date 4 four times a day . Use one drop the morning of surgery. Restart following surgery as per instructions given 3 mL 12/02/2024 12/23/2024 Discontinued Start: 09-02-2024 moxifloxacin ( VIGAMOX) 0.5 % ophthalmic solution Use 1 Drop in the right eye four times daily. Start drops 2 (two) days prior to your scheduled surgery date 4 four times a day . Use one drop the morning of surgery. Restart following surgery as per instructions given 3 mL 09/02/2024 Active Start: 08-19-2024 End: 08-25-2024 moxifloxacin (VIGAMOX) 0.5 % ophthalmic solution Use 1 Drop in the right eye four times daily. Start drops 2 (two) days prior to your scheduled surgery date 4 four times a day . Use one drop the morning of surgery. Restart following surgery as per instructions given 3 mL 08/19/2024 08/25/2024 Discontinued phenylephrine hydrochloride 25 mg/ml ophthalmic solution (6 sources) alpha-1 Adrenergic Agonist Start: 01-20-2025 End: 01-20-2025 PHENYLephrine 2.5 % 1 drop (AK-DILATE, AMELIA-SYNEPHRINE) Start: 01-20-2025 End: 01-20-2025 1 drop, BOTH EYES, DIRECT ED, Starting on Leslie 01/20/25 at 1000, Until Leslie 01/20/25 at 2159, Administer for dilation PROTECT FROM LIGHT Start: 07-21-2024 End: 07-21-2024 PHENYLephrine 2.5 % 1 Drop ( AK-DILATE, AMELIA-SYNEPHRINE) Start: 07-21-2024 End: 07-21-2024 1 Drop, BOTH EYES, DIRECT ED, Starting on Fri07/21/24 at 0830, Until Fri07/21/24 at 2028, Administer for dilation PROTECT FROM LIGHT Start: 07-01-2024 End: 07-01-2024 PHENYLephrine 2.5 % 1 Drop ( AK-DILATE, AMELIA-SYNEPHRINE) Start: 07-01-2024 End: 07-01-2024 1 Drop, BOTH EYES, DIRECT ED, Starting on Leslie 07/01/24 at 0930, Until Leslie 07/01/24 at 2129, Administer for dilation PROTECT FROM LIGHT prednisoLONE acetate 10 mg/ml ophthalmic suspension (19 sources) Corticosteroid Start: 12-25-2024 prednisoLONE a cetate (PRED FORTE) 1 % ophthalmic suspension Use 1 drop in the right eye four times daily. Start drops 2 (two) days prior to your scheduled surgery date 4 four times a day . Use one drop the morning of surgery. Restart following surgery as per instructions given. 15 mL 1 12/25/2024 Active Start: 09-02-2024 End: 12-23-2024 prednisoLONE acetate (PRED F ORTE) 1 % ophthalmic suspension Use 1 drop in the right eye four times daily. Start drops 2 (two) days prior to your scheduled surgery date 4 four times a day . Use one drop the morning of surgery. Restart following surgery as per instructions given. 15 mL 1 12/25/2024 Active Start: 08-19-2024 End: 08-25-2024 prednisoLONE acetate (PRED F ORTE) 1 % ophthalmic suspension Use 1 Drop in the right eye four times daily. Start drops 2 (two) days prior to your scheduled surgery date 4 four times a day . Use one drop the morning of surgery. Restart following surgery as per instructions given 10 mL 1 08/19/2024 08/25/2024 Discontinued tropicamide 10 mg/ml ophthalmic solution (6 sources) Anticholinergic Start: 01-20-2025 End: 01-20-2025 tropicamide 1 % 1 drop (MYDRIACYL) Start: 01-20-2025 End: 01-20-2025 1 drop, BOTH EYES, DIRECT ED, Starting on Leslie 01/20/25 at 1000, Until Leslie 01/20/25 at 2159, Administer for dilation Start: 07-21-2024 End: 07-21-2024 tropicamide 1 % 1 Drop (MYDR IACYL) Start: 07-21-2024 End: 07-21-2024 1 Drop, BOTH EYES, DIRECT ED, Starting on Fri07/21/24 at 0830, Until Fri07/21/24 at 2028, Administer for dilation Start: 07-01-2024 End: 07-01-2024 tropicamide 1 % 1 Drop (MYDR IACYL) Start: 07-01-2024 End: 07-01-2024 1 Drop, BOTH EYES, DIRECT ED, Starting on Leslie 07/01/24 at 0930, Until Leslie 07/01/24 at 2129, Administer for dilation ubidecarenone 100 mg oral tablet (20 sources) Start: 02-15-2025 take 10 tablets by mouth once daily Coenzyme Q10 100 mg tablet Active 100 mg PO daily February 15, 2025 12:00am Start: 05-28-2023 End: 08-23-2024 Coenzyme Q10 (Ultra Coq10) 7 5 mg capsule Discontinued 75 mg PO DAILY May 28, 2023 1:00am August 23, 2024 9:48am vit C,A-El-ircch-lutein-zeax an (PRESERVISION AREDS-2) [phone] ur-cioh-ks-mg cap (16 sources) take 1 capsule by mouth twice daily vit C,U-Sz-bvjnw-lutein-zeaxan (PRESERVISION AREDS-2) [phone] bp-sllj-ms-mg cap Take 1 capsule by mouth twice daily. Active take 1 capsule by mo uth twice daily vit C,N-Ue-jakpg-lutein-zeaxan (PRESERVI ZURI AREDS-2) [phone] rc-ojmk-ym-mg cap Take 1 capsule by mouth twice daily. 0 Active Comment on above: Take 1 capsule by mo uth twice daily. Vitamins A,C,A-Gfqs-Ejysxp (Preservision Areds) 14,[phone] vzjm-jt-kjrm capsule (20 sources) Start: 03-24-2019 take 1 capsule by mouth twice daily Vitamins A,C,Q-Jcvx-Ffddda (Preservision Areds) 14,320-226-200 love-lu-fsnk capsule Active 1 CAP PO TWICE A DAY March 24, 2019 9:23am Start: 03-24-2019 Vitamins A,C,E -Zinc-Copper (Preservision Areds) 14,320-226-200 yfoo-tv-joti capsule Active 1 NMA PO TWICE A DAY March 24, 2019 12:00am supplement Start: 03-24-2019 Vitamins A,C,E -Zinc-Copper (Preservision Areds) 14,320-226-200 ljtj-gx-oqbr capsule Active 1 NMA PO TWICE A DAY March 24, 2019 12:00am Start: 03-24-2019 take 1 capsule by mo uth twice daily Vitamins A,C,K-Ufvu-Dxlnvs (Preservision Areds) 14,320-226-200 wscg-yr-chth capsule Active 1 CAP PO TWICE A DAY March 23, 2019 11:00pm Start: 03-24-2019 take 1 capsule by mo ut twice daily Vitamins A,C,A-Bwdw-Gmhwzf (Preservision Areds) 14,320-226-200 trvu-hm-ynnh capsule Active 1 CAP PO TWICE A DAY March 24, 2019 12:00am Completed/Discontinued Medications Medication Drug Class(es) Dates Sig (Normalized) Sig (Original) acetaminophen 300 mg / HYDROcodone bitartrate 5 mg oral tablet (20 sources) Opioid Agonist Start: 02-16-2016 End: 03-24-2019 Hydrocodone-Acetami nophen 1 EACH tablet Discontinued 1 {tbl} PO EVERY 6 HOURS NEEDED as needed for Pain February 16, 2016 12:00am March 24, 2019 9:21am Start: 02-16-2016 End: 03-24-2019 take 1 tablet by mouth every six hours as needed Hydrocodone-Acetaminophen Discontinued 1 TABLET PO EVERY 6 HOURS NEEDED February 15, 2016 11:00pm March 24, 2019 8:21am allopurinol 100 mg oral tablet (20 sources) Xanthine Oxidase Inhibitor Start: 08-18-2020 End: 01-10-2021 take 1 tablet by mouth once daily Allopurinol 100 mg tablet Discontinued 100 mg PO DAILY 90 2 October 23, 2020 8:58am January 10, 2021 8:11am gout Start: 02-09-2016 End: 08-25-2024 take 1 tablet by mouth twice daily at mealtime Allopurinol 100 mg tablet Discontinued 100 mg PO TWICE DAILY WITH MEALS 180 May 16, 2020 9:36am August 18, 2020 10:03am Comment on above: one week worth until mail order arrives Mail order. Take 1 tablet by tricia th twice daily. amLODIPine 5 mg oral tablet (20 sources) Dihydropyridine Calcium Channel Ken Start: 04-12-20 End: 04-12-20 take 1 tablet by mouth once daily Amlodipine 5 mg tablet Discontinued 5 mg PO DAILY April 12, 2020 12:00am April 12, 2020 11:00am Start: 02-09-2016 End: 08-25-2024 take 1 tablet by mouth once daily Amlodipine 10 mg tablet Discontinued 10 mg PO DAILY 90 3 October 19, 2019 9:24am April 12, 2020 11:00am Start: 09-01-2012 End: 09-01-2012 take 1 tablet by mouth once daily NORVASC, 5MG (Oral Tablet) 1 (one) Tablet qd for 90 days Quantity: 90 {Tablet} Refills: 3 Ordered: 01-Sep-2012 Fast DOJuana A Fast DO, Lola A Start : 01-Sep-2012 End : 01-Sep-2012 Discontinued Comments: Mail order. Comment on above: Mail order. Take 1 tablet by tricia th once daily. amoxicillin 875 mg oral tablet (15 sources) Penicillin-class Antibacterial Start: 018 End: 018 take 1 tablet by mouth twice daily Amoxicillin 875 MG Oral Tablet 1 (one) Tablet bid for 0 days Quantity: 20 {Tablet} Refills: 0 Ordered: 09-Feb-2018 Brandie Guevara CMA Start : 05-Sep-2017 End : 09-Feb-2018 Inactive ascorbic acid 113 mg / copper gluconate 0.4 mg / docosahexaenoic acid 87.5 mg / eicosapentaenoic acid 163 mg / lutein 2.5 mg / tocopherol acetate 100 unt / zeaxanthin 0.5 mg / zinc oxide 17.4 mg oral capsule (10 sources) Vitamin C take 1 capsule by mouth once daily PreserVision AREDS 2 Oral Capsule 1 qd Active aspirin 81 mg oral tablet (20 sources) Platelet Aggregation Inhibitor, Nonsteroidal Anti-inflammatory Drug Start: take 1 tablet by mouth once daily Aspirin Low Dose 81 MG Oral Tablet 1 QD for 0 days Refills: 0 Ordered: 05-Sep-2017 Lola Lara DO Fast DO Lola A Start : 05-Sep-2017 Active Comments: This order discontinued per [facility]. Start: 02-09-2016 End: 08-29-2023 take 1 tablet by mouth once daily Aspirin 81 MG tablet Discontinued 81 mg PO DAILY@0800 February 09, 2016 12:00am August 29, 2023 9:58am heart health End: 08-25-2024 take 1 tablet by mouth once daily BABY ASPIRIN ORAL Take 1 tablet by mouth once daily. 08/25/2024 Discontinued take 1 tablet by tricia th once daily BABY ASPIRIN ORAL Take 1 tablet by mouth once daily. Active take 1 tablet by tricia th once daily BABY ASPIRIN ORAL Take 1 tablet by mouth once daily. 0 Active Comment on above: This order discontin ued per [facility]. Take 1 tablet by tricia th once daily. atenolol 25 mg oral tablet (20 sources) beta-Adrenergic Ken Start: 02-09-20 16 End: 03-24-20 19 take 1 tablet by mouth once daily Atenolol 25 MG tablet Discontinued 25 mg PO DAILY February 09, 2016 12:00am March 24, 2019 9:21am Comment on above: Mail order. 0.85 ml exenatide 2.35 mg/ml auto-injector (10 sources) Start: 07-22-19 19 take 1 mg by subcutaneous injection every week Bydureon BCise 2 MG/0.85ML Subcutaneous Auto-injector 1 (one) Milligram q week for 0 days Quantity: 12 {Pre-filled_Pen_Syri nge} Refills: 3 Ordered: 22-Jul-2018 Fast DO, Lola A Fast DO, Lola A Start : 22-Jul-2018 Active Start: 06-09-2018 Bydureon BCise 2 MG/0.85ML Subcutaneous Auto-injector 1 (one) Milligram Milligram q week for 0 days Quantity: 12 {Pre-filled_Pen_Syringe} Refills: 3 Ordered: 09-Jun-2018 Fast DO, Lola A Fast DO, Lola A Start : 09-Jun-2018 Active Start: 09-05-2017 Bydureon BCise 2 MG/0.85ML Subcutaneous Auto-injector 1 (one) Milligram Milligram q week for 0 days Quantity: 12 {Pre-filled_Pen_Syringe} Refills: 3 Ordered: 05-Sep-2017 Paola Brandie Start : 05-Sep-2017 Active calcium carbonate 1500 mg / cholecalciferol 200 unt oral capsule (20 sources) Vitamin D Start: 03-07-2023 End: 08-23-2024 Calcium Carbonate-Vitamin D3 (Calcium 600 + D(3)) 600 mg-5 mcg (200 unit) capsule Discontinued 1 NMA PO DAILY March 07, 2023 12:00am August 23, 2024 9:48am carvedilol 25 mg oral tablet (20 sources) alpha-Adrener gic Ken, beta-Adrenerg ic Ken Start: 06-21-2020 End: 02-07-2025 take 1 tablet by mouth twice daily Carvedilol 25 mg tablet Discontinued 25 mg PO TWICE A DAY 180 3 December 10, 2023 1:05pm February 07, 2025 9:12am blood pressure Start: 05-20-2020 End: 06-21-2020 take 1 tablet by mouth twice daily at mealtime Carvedilol 6.25 mg tablet Discontinued 0 .ROUTE .COMPLEX 90 May 20, 2020 12:22pm June 21, 2020 9:09am TAKE 1 TABLET BY MOUTH TWICE A DAY WITH FOOD Start: 05-17-2020 End: 05-20-2020 take 1 tablet by mouth twice daily at mealtime Carvedilol 25 mg tablet Discontinued 25 mg PO TWICE A DAY 180 May 17, 2020 1:00am May 20, 2020 12:22pm must administer with a meal/food Start: 05-11-2020 End: 05-17-2020 take 2 tablets by mouth twice daily at mealtime Carvedilol (Coreg) 12.5 mg tablet Discontinued 25 mg PO TWICE A DAY May 11, 2020 5:54pm May 17, 2020 2:19pm must administer with a meal/food Start: 04-25-2020 End: 05-11-2020 take 1 tablet by mouth twice daily at mealtime Carvedilol (Coreg) 12.5 mg tablet Discontinued 12.5 mg PO TWICE A DAY 60 April 25, 2020 12:00am May 11, 2020 5:54pm must administer with a meal/food Start: 04-12-2020 End: 04-25-2020 take 1 tablet by mouth twice daily at mealtime Carvedilol (Coreg) 6.25 mg tablet Discontinued 6.25 mg PO TWICE A DAY 90 April 12, 2020 12:00am April 25, 2020 4:27pm must administer with a meal/food Comment on above: TAKE 1 TABLET BY TRICIA TWICE A DAY WITH MEAL/FOOD cephalexin 500 mg oral capsule (20 sources) Cephalosporin Antibacterial Start: End: take 1 capsule by mouth every eight hours Cephalexin 500 MG capsule Discontinued 500 mg PO EVERY 8 HOURS 15 0 February 16, 2016 12:00am March 24, 2019 9:21am cholecalciferol 0.125 mg oral capsule (20 sources) Vitamin D Start: End: take 1 capsule by mouth once daily Cholecalciferol (Vitamin D3) 5,000 unit capsule Discontinued 5000 U PO DAILY March 24, 2019 12:00am August 02, 2021 4:48pm supplement Start: 02-09-2016 End: 03-24-2019 take 1 capsule by mouth once daily Cholecalciferol (Vitamin D3) 10,000 UNIT capsule Discontinued 47230 U PO DAILY February 09, 2016 12:00am March 24, 2019 9:21am End: 08-25-2024 take 1 tablet by mouth once daily cholecalciferol (VITAMIN D-3) 5,000 unit tab Take 5,000 Units by mouth once daily. 08/25/2024 Discontinued Comment on above: Take 5,000 Units by mouth once daily. Dulaglutide (20 sources) GLP-1 Receptor Agonist Start: 07-23-2024 End: 02-15-2025 Dulaglutide (Trulicity) 4.5 mg/0.5 mL pen injector Discontinued 4.5 mg SC EVERY WEEK 6.5 90 July 23, 2024 5:54pm February 15, 2025 9:05am Start: 07-23-2024 Dulaglutide (T rulicity) 4.5 mg/0.5 mL pen injector Active 4.5 mg SC EVERY WEEK 6.5 90 July 23, 2024 5:54pm Start: 07-23-2024 Dulaglutide (T rulicity) 4.5 mg/0.5 mL pen injector Active 4.5 mg SC EVERY WEEK 6.5 90 July 23, 2024 5:54pm Start: 07-15-2024 End: 07-23-2024 Dulaglutide (Trulicity) 4.5 mg/0.5 mL pen injector Discontinued 4.5 mg SC EVERY WEEK 6.5 90 July 15, 2024 1:00am July 23, 2024 5:54pm Start: 07-15-2024 End: 07-23-2024 Dulaglutide (Trulicity) 4.5 mg/0.5 mL pen injector Discontinued 4.5 mg SC EVERY WEEK 6.5 90 July 15, 2024 1:00am July 23, 2024 5:54pm Start: 04-05-2024 End: 04-29-2024 Dulaglutide 4.5 mg/0.5 mL pe n injector Discontinued 4.5 mg SC EVERY WEEK 6.5 90 April 05, 2024 1:27pm April 29, 2024 10:50am Start: 04-05-2024 End: 04-29-2024 Dulaglutide 4.5 mg/0.5 mL pe n injector Discontinued 4.5 mg SC EVERY WEEK 6.5 90 April 05, 2024 1:27pm April 29, 2024 10:50am Start: 11-24-2023 End: 12-01-2023 Dulaglutide 4.5 mg/0.5 mL pe n injector Discontinued 4.5 mg SC EVERY WEEK 6.5 90 November 24, 2023 4:51pm December 01, 2023 10:48am Start: 11-24-2023 End: 12-01-2023 Dulaglutide 4.5 mg/0.5 mL pe n injector Discontinued 4.5 mg SC EVERY WEEK 6.5 November 24, 2023 4:51pm December 01, 2023 10:48am Start: 09-08-2023 End: 11-24-2023 Dulaglutide 4.5 mg/0.5 mL pe n injector Discontinued 4.5 mg SC EVERY WEEK 6.5 90 September 08, 2023 10:43am November 24, 2023 4:51pm Start: 09-08-2023 End: 11-24-2023 Dulaglutide 4.5 mg/0.5 mL pe n injector Discontinued 4.5 mg SC EVERY WEEK 6.5 September 08, 2023 10:43am November 24, 2023 4:51pm Start: 09-08-2023 Dulaglutide Ac tive 4.5 MG SC EVERY WEEK 6.5 September 08, 2023 9:43am Start: 05-28-2023 End: 09-08-2023 Dulaglutide 4.5 mg/0.5 mL pe n injector Discontinued 4.5 mg SC EVERY WEEK 6.5 90 May 28, 2023 11:31am September 08, 2023 10:43am Start: 05-28-2023 End: 09-08-2023 Dulaglutide 4.5 mg/0.5 mL pe n injector Discontinued 4.5 mg SC EVERY WEEK 6.5 90 May 28, 2023 11:31am September 08, 2023 10:43am Start: 05-28-2023 End: 09-08-2023 Dulaglutide Discontinued 4.5 MG SC EVERY WEEK 6.5 May 28, 2023 10:31am September 08, 2023 9:43am Start: 05-28-2023 Dulaglutide Ac tive 4.5 MG SC EVERY WEEK 6.5 May 28, 2023 10:31am Start: 12-02-2022 End: 05-28-2023 Dulaglutide 3 mg/0.5 mL pen injector Discontinued 3 mg SC EVERY WEEK 6.5 90 December 02, 2022 5:12pm May 28, 2023 11:32am Start: 12-02-2022 End: 05-28-2023 Dulaglutide 3 mg/0.5 mL pen injector Discontinued 3 mg SC EVERY WEEK 6.5 December 02, 2022 5:12pm May 28, 2023 11:32am Start: 12-02-2022 End: 05-28-2023 Dulaglutide Discontinued 3 M G SC EVERY WEEK 6.5 December 02, 2022 4:12pm May 28, 2023 10:32am Start: 12-02-2022 Dulaglutide Ac tive 3 MG SC EVERY WEEK 6.5 December 02, 2022 5:12pm Start: 09-02-2022 End: 12-01-2022 Dulaglutide 3 mg/0.5 mL pen injector Discontinued 3 mg SC EVERY WEEK 6.5 90 September 02, 2022 12:00pm November 30, 2022 12:00am December 01, 2022 12:04am Start: 09-02-2022 End: 12-01-2022 Dulaglutide 3 mg/0.5 mL pen injector Discontinued 3 mg SC EVERY WEEK 6.5 September 02, 2022 12:00pm November 30, 2022 12:00am December 01, 2022 12:04am Start: 09-02-2022 End: 12-01-2022 Dulaglutide Discontinued 3 M G SC EVERY WEEK 6.5 September 02, 2022 11:00am November 30, 2022 11:04pm Start: 09-02-2022 End: 12-01-2022 Dulaglutide Discontinued 3 M G SC EVERY WEEK 6.5 September 02, 2022 12:00pm December 01, 2022 12:04am Start: 09-02-2022 Dulaglutide Ac tive 3 MG SC EVERY WEEK 6.5 September 02, 2022 11:00am Start: 08-23-2022 End: 09-02-2022 Dulaglutide (Trulicity) 3 mg /0.5 mL pen injector Discontinued 3 mg SC EVERY WEEK 6.5 90 August 23, 2022 9:23am September 02, 2022 12:00pm Start: 08-23-2022 End: 09-02-2022 Dulaglutide (Trulicity) 3 mg /0.5 mL pen injector Discontinued 3 mg SC EVERY WEEK 6.5 August 23, 2022 9:23am September 02, 2022 12:00pm Start: 08-23-2022 End: 09-02-2022 Dulaglutide (Trulicity) 3 mg /0.5 mL pen injector Discontinued 3 MG SC EVERY WEEK 6.5 August 23, 2022 9:23am September 02, 2022 12:00pm Start: 08-23-2022 End: 09-02-2022 Dulaglutide (Trulicity) 3 mg /0.5 mL pen injector Discontinued 3 MG SC EVERY WEEK 6.5 August 23, 2022 8:23am September 02, 2022 11:00am Start: 08-23-2022 Dulaglutide (T rulicity) 3 mg/0.5 mL pen injector Active 3 MG SC EVERY WEEK 6.5 August 23, 2022 8:23am Start: 05-30-2022 End: 08-23-2022 Dulaglutide (Trulicity) 1.5 mg/0.5 mL pen injector Discontinued 1.5 mg SC EVERY WEEK 2 August 16, 2022 9:50am August 23, 2022 9:26am Start: 01-14-2021 End: 02-06-2021 Dulaglutide (Trulicity) 1.5 mg/0.5 mL pen injector Discontinued 1.5 mg SC EVERY WEEK 2 January 14, 2021 12:00am February 06, 2021 10:02am Start: 10-01-2016 dulaglutide (T RULICITY) 0.75 mg / 0.5 ml subcutaneous pen injector Inject subcutaneously. 10/01/2016 Active Start: 10-01-2016 End: 10-01-2016 Trulicity 0.75 MG/0.5ML Subc utaneous Solution Pen-injector 1 (one) Soln Pen-inj q week for 0 days Quantity: 12 {Pre-filled_Pen_Syringe} Refills: 3 Ordered: 01-Oct-2016 Fast DO, Lola A Fast DO, Lola A Start : 01-Oct-2016 End : 01-Oct-2016 Discontinued Comment on above: pens Mail order. pens Inject subcutaneousl y. empagliflozin 10 mg oral tablet (20 sources) Sodium-Glucose Cotransporter 2 Inhibitor Start: 08-24-19 19 End: 08-25-19 25 take 1 tablet by mouth once daily in the morning Empagliflozin (Jardiance) 10 mg tablet Discontinued 10 mg PO EVERY MORNING 30 2 April 16, 2022 8:51am May 29, 2022 9:28am Comment on above: Take 10 mg by mouth daily with breakfast. 0.85 ml exenatide 2.35 mg/ml auto-injector (20 sources) GLP-1 Receptor Agonist Start: 02-07-20 21 End: 02-20-20 22 Exenatide Microspheres (Bydureon Bcise) 2 mg/0.85 mL auto-injector Discontinued 2 mg SC EVERY WEEK 4.25 30 0 January 29, 2022 1:39pm February 27, 2022 12:00am February 19, 2022 10:51am Start: 03-24-2019 End: 01-10-2021 Exenatide Microspheres (Bydu reon Bcise) 2 mg/0.85 mL auto-injector Discontinued 2 mg SC Q7D 11.05 90 3 March 03, 2020 2:18pm January 10, 2021 8:43am Start: 03-30-2018 End: 08-25-2024 BYDUREON BCISE 2 mg/0.85 mL AutoInjector Inject subcutaneously once each week. 03/30/2018 08/25/2024 Discontinued Start: 09-05-2017 End: 09-05-2017 Bydureon 2 MG Subcutaneous P en-injector 1 (one) Pen-injector q week for 90 days Quantity: 12 {Pre-filled_Pen_Syringe} Refills: 3 Ordered: 05-Sep-2017 Fast DO, Lola A Fast DO, Lola A Start : 05-Sep-2017 End : 05-Sep-2017 Discontinued Comment on above: Mail order. Inject subcutaneousl y once each week. ezetimibe 10 mg / simvastatin 20 mg oral tablet (15 sources) HMG-CoA Reductase Inhibitor, Dietary Cholesterol Absorption Inhibitor Start: 08-16-19 End: 08-16-19 take 1 tablet by mouth once daily VYTORIN, 10-20MG (Oral Tablet) 1 Tablet QD for 0 days Quantity: 90 {Tablet} Refills: 3 Ordered: 16-Aug-2008 Fast DO, Lola A Fast DO, Lola A Start : 16-Aug-2008 End : 16-Aug-2008 Discontinued furosemide 40 mg oral tablet (20 sources) Loop Diuretic Start: 03-07-20 End: 08-05-19 take 1 tablet by mouth twice daily Furosemide 40 mg tablet Discontinued 40 mg PO TWICE A DAY 90 July 10, 2023 2:58pm September 09, 2023 12:34pm SOB x5 days on 05/01/2023 Start: 04-12-2020 End: 04-30-2023 take 1 tablet by mouth once daily Furosemide 40 mg tablet Discontinued 40 mg PO DAILY 30 July 16, 2022 6:11pm August 12, 2022 10:12am Start: 04-05-2020 End: 04-12-2020 take 1 tablet by mouth once daily Furosemide 20 mg tablet Discontinued 20 mg PO DAILY 10 0 April 05, 2020 12:00am April 12, 2020 11:13am Comment on above: Take 1 tablet by tricia th once daily. Hormone injection for prostate cancer (20 sources) Start: 03-07-2023 End: 09-09-2023 Hormone injection for prostate cancer Discontinued IM March 07, 2023 12:00am September 09, 2023 12:33pm Start: 03-07-2023 End: 09-09-2023 Hormone injection for prosta te cancer Discontinued IM March 06, 2023 11:00pm September 09, 2023 11:33am Start: 03-07-2023 Hormone inject ion for prostate cancer Active IM March 06, 2023 11:00pm Start: 03-07-2023 Hormone inject ion for prostate cancer Active IM March 07, 2023 12:00am hydroCHLOROthiazide 12.5 mg / valsartan 320 mg oral tablet (15 sources) Thiazide Diuretic, Angiotensin 2 Receptor Ken Start: 01-07-2012 End: 01-07-2012 take 1 tablet by mouth once daily DIOVAN HCT, 320-12.5MG (Oral Tablet) 1 (one) Tablet qd for 0 days Quantity: 90 {Tablet} Refills: 3 Ordered: 07-Jan-2012 Lola Lara DO Fast , Lola Chaudhry Start : 07-Jan-2012 End : 07-Jan-2012 Discontinued linagliptin 5 mg oral tablet (20 sources) Dipeptidyl Peptidase 4 Inhibitor Start: 02-09-2016 End: 03-24-2019 take 1 tablet by mouth once daily Linagliptin 5 MG tablet Discontinued 5 mg PO DAILY February 09, 2016 12:00am March 24, 2019 9:21am Comment on above: [id number] Mail order. [id number] lisinopril 2.5 mg oral tablet (20 sources) Angiotensin Converting Enzyme Inhibitor Start: 09-17-2019 End: 12-22-2019 take 1 tablet by mouth once daily Lisinopril 2.5 mg tablet Discontinued 2.5 mg PO DAILY 60 3 October 20, 2019 10:03am December 21, 2019 9:10am Start: 09-15-2007 End: 09-15-2007 take 1 tablet by mouth once daily LISINOPRIL, 20MG (Oral Tablet) 1 (one) Tablet Daily for 0 days Quantity: 90 {Tablet} Refills: 3 Ordered: 15-Sep-2007 Kriss Ro Start : 15-Sep-2007 End : 15-Sep-2007 Discontinued Start: 07-18-2006 End: 07-18-2006 take 1 tablet by mouth once daily LISINOPRIL, 10MG (Oral Tablet) 1 (one) Tablet QD for 0 days Quantity: 90 {Tablet} Refills: 3 Ordered: 18-Jul-2006 Kriss Ro Start : 18-Jul-2006 End : 18-Jul-2006 Discontinued losartan potassium 25 mg oral tablet (20 sources) Angiotensin 2 Receptor Ken Start: 04-12-2020 End: 02-07-2025 take 1 tablet by mouth once daily Losartan 25 mg tablet Discontinued 25 mg PO DAILY 90 3 February 07, 2025 9:12am February 07, 2025 9:13am Comment on above: Take 1 tablet by tricia th once daily. 24 hr metFORMIN hydrochloride 750 mg extended release oral tablet (15 sources) Biguanide Start: 06-26-2012 End: 06-26-2012 take 3 tablets by mouth once daily GLUCOPHAGE XR, 750MG (Oral Tablet Extended Release 24 Hour) 3 (three) Tablet ER 24HR qd- for 0 days Quantity: 270 {Tablet_ER_24HR} Refills: 3 Ordered: 26-Jun-2012 Lola Lara DO, DO, Debra A Start : 26-Jun-2012 End : 26-Jun-2012 Discontinued Marion 9-Lod-Abd-Fish Oil (16 sources) Start: 02-09-2016 End: 03-24-2019 Marion 9-Nwh-Ayk-Fish Oil Discontinued 1 EACH PO DAILY February 09, 2016 10:06am March 24, 2019 9:21am Start: 02-09-2016 End: 03-24-2019 Marion 9-Bvx-Wun-Fish Oil Dis continued 1 EACH PO DAILY February 08, 2016 11:00pm March 24, 2019 8:21am Start: 02-09-2016 End: 03-24-2019 Marion 6-Gts-Ptw-Fish Oil Dis continued 1 EACH PO DAILY February 09, 2016 12:00am March 24, 2019 9:21am Marion 8-Ylt-Fwx-Fish Oil 1 EACH capsule,delayed release(DR/EC) (17 sources) Start: 02-09-2016 End: 03-24-2019 take 1 capsule by mouth once daily Marion 2-Esx-Ohd-Fish Oil 1 EACH capsule,delayed release(DR/EC) Discontinued 1 NMA PO DAILY February 09, 2016 12:00am March 24, 2019 9:21am oseltamivir 75 mg oral capsule (15 sources) Neuraminidase Inhibitor Start: 09-02-2017 End: 09-05-2017 take 1 capsule by mouth once daily Oseltamivir Phosphate 75 MG Oral Capsule 1 (one) Capsule QD for 0 days Quantity: 10 {Capsule} Refills: 0 Ordered: 05-Sep-2017 Lola Lara DO, DO, Debra A Start : 02-Sep-2017 End : 05-Sep-2017 Inactive proparacaine hydrochloride 5 mg/ml ophthalmic solution (4 sources) Local Anesthetic Start: 07-21-2024 End: 07-21-2024 proparacaine 0.5 % 1 Drop (ALCAINE) Start: 07-21-2024 End: 07-21-2024 1 Drop, BOTH EYES, DIRECT ED, Starting on Fri07/21/24 at 0830, Until Fri07/21/24 at 2028, Administer for pneumo tonometry, tonopen tonometry, or pachymetry. In the event of a proparacaine shortage, administer tetracaine 0.5% ophthalmic drops 1 drop in the left eye as directed for pneumo tonometry, tonopen tonometry, or pachymetry Start: 07-01-2024 End: 07-01-2024 proparacaine 0.5 % 1 Drop (A LCAINE) Start: 07-01-2024 End: 07-01-2024 1 Drop, BOTH EYES, DIRECT ED, Starting on Leslie 07/01/24 at 0930, Until Leslie 07/01/24 at 2129, Administer for pneumo tonometry, tonopen tonometry, or pachymetry. In the event of a proparacaine shortage, administer tetracaine 0.5% ophthalmic drops 1 drop in the left eye as directed for pneumo tonometry, tonopen tonometry, or pachymetry rosuvastatin calcium 5 mg oral tablet (20 sources) HMG-CoA Reductase Inhibitor Start: 09-05-2017 End: 08-25-2024 take 1 tablet by mouth once daily Rosuvastatin 5 mg tablet Discontinued 5 mg PO DAILY March 24, 2019 12:00am March 30, 2019 4:30pm Comment on above: Mail order. Take 1 tablet by [facility] once daily. 0.25 mg, 0.5 mg dose 1.5 ml semaglutide 1.34 mg/ml pen injector (20 sources) Start: 05-29-2022 End: 05-30-2022 Semaglutide (Ozempic) 0.25 mg or 0.5 mg(2 mg/1.5 mL) pen injector Discontinued 0.25 mg SC EVERY WEEK 2.6 90 0 May 29, 2022 1:00am August 26, 2022 1:00am May 30, 2022 2:19pm 0.25mg x 4 weeks, then 0.5 mg weekly x 4 weeks, Then 1 mg weekly. Start: 01-10-2021 End: 04-17-2021 Semaglutide (Ozempic) 0.25 m g or 0.5 mg(2 mg/1.5 mL) pen injector Discontinued 0.5 mg SC EVERY WEEK 7.5 1 January 10, 2021 12:00am April 17, 2021 2:45pm Semaglutide (Rybelsus) 14 mg tablet (17 sources) Start: 12-01-2023 End: 12-03-2023 take 0.5 tablet by mouth once daily, then take 1 tablet by mouth once daily Semaglutide (Rybelsus) 14 mg tablet Discontinued 14 mg PO DAILY 12 08December 01, 2023 12:00am December 03, 2023 1:40pm Take 1/2 tablet daily x 2 weeks then increase to 1 tablet daily Start: 12-01-2023 End: 12-03-2023 take 0.5 tablet by mouth once daily, then take 1 tablet by mouth once daily Semaglutide (Rybelsus) 14 mg tablet Discontinued 14 mg PO DAILY December 01, 2023 12:00am December 03, 2023 1:40pm Take 1/2 tablet daily x 2 weeks then increase to 1 tablet daily simvastatin 20 mg oral tablet (20 sources) HMG-CoA Reductase Inhibitor Start: 10-19-2019 End: 02-09-2025 take 1 tablet by mouth at bedtime Simvastatin 20 mg tablet Discontinued 20 mg PO AT BEDTIME April 01, 2024 10:14am February 09, 2025 12:37pm Start: 02-09-2016 End: 03-24-2019 take 1 tablet by mouth at bedtime Simvastatin 40 MG tablet Discontinued 40 mg PO AT BEDTIME February 09, 2016 12:00am March 24, 2019 9:20am take 10 mg by mouth once daily S IMVASTATIN ORAL Take 10 mg by mouth once daily. Active Comment on above: Mail order. Take 10 mg by mouth once daily. tadalafil 5 mg oral tablet (20 sources) Phosphodiesterase 5 Inhibitor Start: 10-01-2016 End: 05-16-2017 Cialis 5 MG Oral Tablet 1-4 Tablet q 72 hours prn for 0 days Quantity: 30 {Tablet} Refills: 0 Ordered: 16-May-2017 Diana Mosquera LPN Start : 01-Oct-2016 End : 16-May-2017 Inactive Start: 08-16-2008 End: 09-10-2011 CIALIS, 10MG (Oral Tablet) 1 (one) Tablet PRN for 0 days Quantity: 10 {Tablet} Refills: 3 Ordered: 10-Sep-2011 Bethany Bradford Start : 16-Aug-2008 End : 10-Sep-2011 Inactive tamsulosin hydrochloride 0.4 mg oral capsule (20 sources) alpha-Adrenergic Ken Start: 02-09-2016 End: 03-24-2019 take 1 capsule by mouth once daily Tamsulosin 0.4 MG capsule Discontinued 0.4 mg PO DAILY February 09, 2016 12:00am March 24, 2019 9:20am Tirzepatide (Mounjaro) 7.5 mg/0.5 mL pen injector (17 sources) Start: 12-03-2023 End: 12-30-2023 Tirzepatide (Mounjaro) 7.5 mg/0.5 mL pen injector Discontinued 7.5 mg SC EVERY WEEK 2 December 03, 2023 12:00am December 30, 2023 12:51pm Start: 12-03-2023 End: 12-30-2023 Tirzepatide (Mounjaro) 7.5 m g/0.5 mL pen injector Discontinued 7.5 mg SC EVERY WEEK 2 December 03, 2023 12:00am December 30, 2023 12:51pm valsartan 320 mg oral tablet (15 sources) Angiotensin 2 Receptor Ken Start: 06-30-2012 End: 06-30-2012 take 1 tablet by mouth once daily DIOVAN, 320MG (Oral Tablet) 1 (one) Tablet qd for 0 days Quantity: 90 {Tablet} Refills: 3 Ordered: 30-Jun-2012 Fast DO, Lola A Fast DO, Lola A Start : 30-Jun-2012 End : 30-Jun-2012 Discontinued Problems Active Problems Problem Classification Problem Date Documented Da te Episodic/Chronic Cancer of bladder (20 sources) Malignant tumor of urinary bladder; Translations: [Malignant neoplasm of bladder, unspecified] 08-24-2020 Chronic Cancer of kidney and renal pelvis (20 sources) Malignant tumor of kidney parenchyma; Translations: [Malignant neoplasm of unspecified kidney, except renal pelvis] Onset: 5 04-07-2020 Chronic Cancer of prostate (20 sources) Primary malignant neoplasm of prostate; Translations: [Malignant tumor of prostate] Onset: 5 02-09-2018 Chronic Comment on above: has followup oct saw Osmin 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 just saw Osmin they are following close as psa creeping up Cataract (20 sources) Bilateral senile combined form cataracts of eyes; Translations: [Combined forms of age-related cataract, bilateral] Onset: 8 Resolved: 5 Chronic Chronic kidney disease (20 sources) Chronic kidney disease; Translations: [Chronic kidney disease, unspecified] Onset: 5 Chronic Chronic kidney disease (1 source) Chronic kidney disease; Translations: [Chronic kidney disease, stage 3b] Onset: 5 Coagulation and hemorrhagic disorders (20 sources) Thrombocytopenia, unspecified; Translations: [Platelet count below reference range] Onset: 5 08-25-2024 Chronic Conduction disorders (20 sources) Automatic implantable cardiac defibrillator in situ; Translations: [Presence of automatic (implantable) cardiac defibrillator] Onset: 1 Chronic Comment on above: Implanted system is a single chamber [employer] ICD per Dr. Chris French @ [facility] Congestive heart failure; nonhypertensive (20 sources) Chronic combined systolic and diastolic heart failure; Translations: [Chronic combined systolic (congestive) and diastolic (congestive) heart failure] Onset: 4 Chronic Diabetes mellitus with complications (1 source) Type 2 diabetes mellitus with other specified complication; Translations: [Type 2 diabetes mellitus with other specified complication] Onset: 5 Chronic Diabetes mellitus with complications (20 sources) Diabetes mellitus with complications Diabetes mellitus without complication (20 sources) Type 2 diabetes mellitus; Translations: [Type 2 diabetes mellitus without complications] Onset: 9 02-09-2018 Chronic Comment on above: encourage getting ye he eye exam toldmust drink lots of water and monitor kidney close with new meds get bmp in week Diabetes mellitus without complication (20 sources) Diabetes mellitus without complication Disorders of lipid metabolism (20 sources) Hyperlipidemia, unspecified; Translations: [Dyslipidemia] Onset: 4 02-09-2018 Chronic Comment on above: improved control good low trigs high we discussed diet and ex get chol profile Esophageal disorders (20 sources) Gastroesophageal reflux disease; Translations: [Gastro-esophageal reflux disease without esophagitis] 10-13-2024 Chronic Essential hypertension (20 sources) Essential hypertension; Translations: [Hypertensive disorder] Onset: 4 02-09-2018 Chronic Comment on above: try to increase exer cise use jardiance to hel p with bp chronic stable-livier nue present regimen Fluid and electrolyte disorders (11 sources) Hyperkalemia; Translations: [Hyperkalemia] Onset: 5 02-15-2025 Episodic Gout and other crystal arthropathies (20 sources) Gout; Translations: [Gout] 02-09-2018 Chronic Comment on above: no gout issues Heart valve disorders (20 sources) Tricuspid incompetence, non-rheumatic ; Translations: [Nonrheumatic tricuspid (valve) insufficiency] Onset: 5 08-01-2021 Chronic Inflammation; infection of eye (except that caused by tuberculosis or sexually transmitteddisease) (1 source) Blepharitis; Translations: [Squamous blepharitis right eye, upper and lower eyelids] 10-07-2024 Episodic Malaise and fatigue (20 sources) Fatigue; Translations: [Chronic fatigue, unspecified] 05-28-2023 Chronic Occlusion or stenosis of precerebral arteries (20 sources) Occlusion and stenosis of bilateral carotid arteries; Translations: [Bilateral stenosis of carotid arteries] Onset: 5 02-09-2018 Chronic Comment on above: chronic stable-livier nue present regimen risk factor modifica tion Other and ill-defined heart disease (15 sources) Heart disease, unspecified Chronic Other and ill-defined heart disease (15 sources) Heart disease; Translations: [Heart disease, unspecified] 02-09-2018 Chronic Other connective tissue disease (14 sources) Diastasis recti; Translations: [Separation of muscle (nontraumatic), other site] 01-26-2025 Episodic Other ear and sense organ disorders (20 sources) Hearing loss; Translations: [Unspecified hearing loss, unspecified ear] Onset: 5 02-09-2018 Chronic Other eye disorders (9 sources) Ischemic optic neuropathy; Translations: [Optic nerve ischemia] 08-24-2018 Chronic Comment on above: we discussed the nee d for aggressive risk factor modification of dm htn and chol got records from [facility] and [facility]- they did no other workup Other eye disorders (18 sources) Anterior ischemic optic neuropathy; Translations: [Ischemic optic neuropathy, bilateral] Onset: 9 Chronic Other eye disorders (20 sources) Bilateral optic atrophy of eyes; Translations: [Other optic atrophy, bilateral] Onset: 8 05-22-2018 Chronic Other eye disorders (3 sources) Bilateral posterior vitreous detachment; Translations: [Vitreous degeneration, bilateral] 07-01-2024 Chronic Other eye disorders (1 source) Vitreous degeneration, bilateral; Translations: [Posterior vitreous detachment of both eyes] Onset: 5 Chronic Other eye disorders (1 source) Other optic atrophy, bilateral; Translations: [Other optic atrophy, bilateral] Onset: 8 Chronic Other eye disorders (1 source) Ischemic optic neuropathy, bilateral; Translations: [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] Onset: 9 Chronic Other eye disorders (1 source) Tear film insufficiency; Translations: [Dry eye syndrome of bilateral lacrimal glands] Episodic Other eye disorders (2 sources) Dermatochalasis of right upper eyelid; Translations: [Dermatochalasis] 07-01-2024 Episodic Other gastrointestinal disorders (20 sources) Diarrhea; Translations: [Diarrhea, unspecified] 12-29-2023 Episodic Other lower respiratory disease (20 sources) Dyspnea on exertion; Translations: [Dyspnea, unspecified] 08-01-2021 Episodic Other male genital disorders (20 sources) Impotence; Translations: [Impotence of organic origin] 02-09-2018 Chronic Other nutritional; endocrine; and metabolic disorders (15 sources) Lipoprotein deficiencies Chronic Other nutritional; endocrine; and metabolic disorders (20 sources) Body mass index 30+ - obesity; Translations: [Body mass index (BMI) 31.0-31.9, adult] Onset: 5 Resolved: 9 02-09-2018 Chronic Comment on above: 33.19 Other nutritional; endocrine; and metabolic disorders (15 sources) Lipoprotein deficiency disorder; Translations: [Lipoprotein deficiency] 02-09-2018 Chronic Other nutritional; endocrine; and metabolic disorders (1 source) Body mass index (BMI) 31.0-31.9, adult; Translations: [BMI 31.0-31.9,adult] Onset: 5 Chronic Tammy-; endo-; and myocarditis; cardiomyopathy (20 sources) Cardiomyopathy; Translations: [Primary cardiomyopathy] Onset: 5 02-09-2018 Chronic Pleurisy; pneumothorax; pulmonary collapse (20 sources) Pleural effusion; Translations: [Pleural effusion, not elsewhere classified] 08-01-2021 Episodic Pneumonia (15 sources) Pneumonia Pulmonary heart disease (20 sources) Pulmonary arterial hypertension; Translations: [Secondary pulmonary arterial hypertension] Onset: 5 08-01-2021 Chronic Retinal detachments; defects; vascular occlusion; and retinopathy (5 sources) Bilateral epiretinal membrane of eyes; Translations: [Puckering of macula, bilateral] Onset: 5 07-01-2024 Chronic Thyroid disorders (20 sources) Non-toxic uninodular goiter; Translations: [Multinodular goiter] Onset: 5 02-09-2018 Chronic Comment on above: due in oct nodule is stable Unclassified (20 sources) Platelet count below reference range; Translations: [Blood chemistry abnormal] 02-09-2018 Episodic Comment on above: chronic stable-livier nue present regimen Elevated PSA Unclassified (20 sources) Unclassified (20 sources) CA IN SITU, PROSTATE (233.4) Unclassified (20 sources) Personal history of renal cancer (V10.52) Unclassified (20 sources) Renal insufficiency; Translations: [Renal insufficiency (Renamed from Renal function impairment)] 11-16-2018 Comment on above: creatinine stable - protein level elevated so will do 24 hour urine Unclassified (20 sources) Carotid stenosis (433.10) Unclassified (20 sources) Well Male Exam (V70.0) Unclassified (20 sources) SCREENING FOR CANCER OF THE PROSTATE (V76.44) Unclassified (20 sources) Mixed dyslipidemia Unclassified (20 sources) Bilateral carotid artery stenosis Unclassified (20 sources) Colon polyp Unclassified (20 sources) Nonsmoker; Translations: [Non-smoker] 02-09-2018 Unclassified (20 sources) BMI 33.0-33.9,adult Unclassified (20 sources) BMI 31.0-31.9,adult Unclassified (20 sources) renal insufficinecy 02-09-2018 Unclassified (15 sources) Abnormality of globulin Unclassified (20 sources) BMI 32.0-32.9,adult Unclassified (19 sources) History of bladder cancer Unclassified (10 sources) BMI 34.0-34.9,adult Unclassified (13 sources) Optic nerve ischemia Unclassified (8 sources) Compliance poor (Renamed from Poor compliance) Past or Other Problems Problem Classification Problem Date Documented Date Episodic/Chronic Administrative/social admission (9 sources) Pneumococcal immunization status; Translations: [Prophylactic vaccination against streptococcus pneumoniae and influenza] Resolved: 04-07-2009 05-31-2015 Episodic Blindness and vision defects (20 sources) Bilateral hyperopia of eyes; Translations: [Hypermetropia, bilateral] Onset: 05-22-2018 Episodic Cancer of kidney and renal pelvis (15 sources) Personal history of malignant neoplasm of kidney; Translations: [Personal history of renal cancer] 02-09-2018 Episodic Cancer; other and unspecified primary (15 sources) History of bladder neoplasm; Translations: [History of bladder cancer] 02-09-2018 Episodic Comment on above: has followup cystoso copy in apr just had scope per p atient was good Coronary atherosclerosis and other heart disease (20 sources) Coronary atherosclerosis and other heart disease Genitourinary symptoms and ill-defined conditions (20 sources) Proteinuria; Translations: [Proteinuria] Resolved: 11-24-2009 09-05-2017 Episodic Immunizations and screening for infectious disease (20 sources) Need for prophylactic vaccination and inoculation against influenza Episodic Influenza (6 sources) Influenza Occlusion or stenosis of precerebral arteries (6 sources) Bilateral carotid artery stenosis; Translations: [Bilateral carotid artery stenosis] 11-16-2018 Comment on above: screening up to date risk factor modifica tion chronic stable-livier nue present regimen Other and unspecified benign neoplasm (15 sources) Polyp of colon; Translations: [Colon polyp] 02-09-2018 Episodic Comment on above: he reminded he due f or colonoscopy next month- he says emile calls him for followup has appt with emile for followup Other connective tissue disease (20 sources) Hand pain; Translations: [Pain of hand, unspecified laterality] Resolved: 11-16-2018 02-09-2018 Episodic Comment on above: think oa of thumbs- offered workup but he just wanted my opinion- he is using topical that helps so will follow Other diseases of kidney and ureters (14 sources) Renal impairment; Translations: [Renal insufficiency (Renamed from Renal function impairment)] 02-09-2018 Episodic Comment on above: chronic stable-livier nue present regimen make sure drinking e nough water creatinine stable - protein level elevated so will do 24 hour urine Other hematologic conditions (15 sources) Abnormal structure of globulin; Translations: [Abnormality of globulin] 02-09-2018 Episodic Other lower respiratory disease (20 sources) Cough; Translations: [Cough] Resolved: 11-24-2009 09-05-2017 Episodic Other upper respiratory infections (20 sources) Acute sinusitis; Translations: [Acute sinusitis] 02-09-2018 Episodic Residual codes; unclassified (8 sources) Noncompliance with treatment; Translations: [Compliance poor (Renamed from Poor compliance)] 08-24-2018 Episodic Comment on above: with diet and exerci se Unclassified (20 sources) Needs influenza immunization; Translations: [Need for prophylactic vaccination and inoculation against influenza (Renamed from Need for immunization against influenza)] 02-11-2017 Episodic Unclassified (15 sources) Abnormal blood chemistry (790.6) Unclassified (20 sources) [facility] Physical 02-09-2018 Unclassified (20 sources) EXPOSURE 02-09-2018 Unclassified (20 sources) [facility] EXAM 02-09-2018 Unclassified (15 sources) Screening status; Translations: [Screening for prostate cancer] Resolved: 09-10-2011 04-18-2015 Unclassified (15 sources) Patient encounter status; Translations: [Encounter for routine history and physical exam for male] 02-09-2018 Unclassified (12 sources) Non-smoker; Translations: [Nonsmoker] 02-09-2018 Unclassified (6 sources) Requires vaccination; Translations: [Prophylactic vaccination against streptococcus pneumoniae and influenza] Resolved: 04-07-2009 05-31-2015 Varicose veins of lower extremity (20 sources) Varicose veins of lower extremity; Translations: [Asymptomatic varicose veins of unspecified lower extremity] Onset: 08-25-2024 02-09-2018 Episodic Results Test Name Value Interpretation Reference Range Facility Cardiology Visit Reporton Cardiology Visit Report [facility] [address] [place], [place] [address] OFFICE VISIT Date of Service: 02/15/25 MR#: [id number] Acct: [id number] Name: SHERRELL GENAO Rep #: [id number] : 1945 Provider: ROBERT rushing Age/Sex: 79/M Location: [facility] Status: Signed HPI HPI History of Present Illness Details: Sherrell Genao is a 79-year-old man with a history of non-ischemic cardiomyopathy, hypertension, hyperlipidemia, chronic kidney disease, history of left nephrectomy, prostate carcinoma and bladder carcinoma. An echocardiogram performed demonstrated global reduction in left ventricular ejection fraction. He has been evaluated by noninvasive means and was noted to have no ischemia and therefore presumed to have a nonischemic cardiomyopathy. He did have a CAT scan of his chest in July 2019 which demonstrated atherosclerotic calcification of the arch and calcifications of the coronary artery also noted. He was put on Lasix as well as an ARB. He also had his beta-ken titrated. He does have renal insufficiency and has a hx of renal carcinoma with removal of his left kidney. He also has a hx of prostrate cancer and is established with Dr. Gtz. He denies chest, arm, jaw, or neck discomfort. He denies palpitations. He denies bilateral lower extremity edema. He denies claudication. He denies shortness of breath with activity, shortness of breath at rest, orthopnea, or PND. He denies chronic cough. He denies significant, sudden weight gain. He denies lightheadedness, dizziness, near-syncope, or syncope. He denies blood in urine, blood in stool, or epistaxis. He denies fever with chills. He denies myalgia. He denies fatigue. His exercise level has remained stable. 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 Is patient in pain?: No Allergies No Known Allergies Allergy (Verified 02/15/25 09:04) Medications ???Medication ???Instructions ???Recorded ???Confirmed ???Type vitamins A,C,K-gmdc-jhgeql 4,296 1 cap PO BID supplement 03/24/19 0 02/15/25 History mcg-226 mg-90 mg capsule (PreserVision AREDS) hydrocortisone 2.5 % topical cream 1 applic topical BID PRN rash #4 54 03/01/24 02/15/25 Rx grams furosemide 40 mg tablet 40 mg PO BID PRN SOB #180 tabs 02/15/25 Rx dapagliflozin propanediol 10 mg 10 mg PO DAILY #90 tabs 08/26/24 0 02/15/25 Rx tablet (Farxiga) glimepiride 4 mg tablet 4 mg PO BID #180 tabs 01/26/2512/05 Rx carvedilol 25 mg tablet 25 mg PO BID blood pressure #180 0 02/07/25 02/15/25 Rx tabs losartan 25 mg tablet 25 mg PO DAILY #90 tabs 02/07/25 0 02/15/25 Rx simvastatin 20 mg tablet 20 mg PO QHS #90 tabs 02/09/2512/05 Rx coenzyme Q10 100 mg tablet 100 mg PO QDAY 02/15/25 02/15/25 H istory Ejection fraction %: 30 Have you fallen in the past year?: No PFSH Medical History Diastasis recti Cataract GERD (gastroesophageal reflux disease) Diarrhea Chronic fatigue Screening for thyroid disorder Swallowing difficulty Orthopnea Thrombocytopenia Obesity Pleural effusion on left Dilated cardiomyopathy Chronic combined systolic and diastolic CHF (congestive heart failure) Chronic kidney disease (CKD) Essential (primary) hypertension Renal carcinoma Type 2 diabetes mellitus History of prostate cancer Urinary frequency Decreased hearing Vision loss Bladder cancer Vascular disease Prostate disease Kidney disease Hyperlipidemia Gout Bone fracture Arthritis Seasonal allergies Surgical History History of bilateral cataract extraction ( 2024) 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) H/O transurethral destruction of bladder lesion History of nephrectomy, left Varicose veins of both lower extremities Hx of cholecystectomy Family History Father Hypertension Melanoma Social History Smoking Status: Former smoker quit date: 07/14/89 Tobacco: How many years used: 15 how long ago did patient quit smokin years ago alcohol intake: never substance use type: does not use caffeine: Yes Type: coffee Number of servings: 3 what type of physical activity do you participate in: walking frequency: daily ROS Const Const: Negative for fatigue or weakness Eyes Eyes: Negative for change in vision ENT ENT: Negative for dizziness or balance problems Cardio Chest Pa (more content not included)... Normal [facility] Anion gap in Serum or Plasma Ordered By: Marj Poe on 02-14-2025 Anion gap [Moles/Vol] 13 mmol/L 11-25 [facility] BUN/creatinine ratioOrdered By: Marj Poe on 02-14-2025 Urea nitrogen/Creatinine [Mass ratio] 17.4 mg/mg 05-02 [facility] Basic Metabolic Profile (BMP )on 02-14-2025 BUN/CRE 17.4 RATIO Normal 05-02 [facility] Comment on above: Performed By: #### L 500.2500 #### [facility] [address] [place], [address] Calcium [Mass/Vol] 8.8 mg/dL Normal 7.6-11.0 [facility] Comment on above: Performed By: #### L 500.2500 #### [facility] [address] [place], [address] Chloride [Moles/Vol] 104 mmol/L Normal 98-108 [facility] Comment on above: Performed By: #### L 500.2500 #### [facility] [address] [place], [address] CO2 [Moles/Vol] 22.3 mmol/L Normal 21.0-32.0 [facility] Comment on above: Performed By: #### L 500.2500 #### [facility] [address] [place], [address] Creatinine [Mass/Vol] 2.55 mg/dL High 0.70-1.20 [facility] Comment on above: Performed By: #### L 500.2500 #### [facility] [address] [place], [address] GAP 13 Normal 11-25 [facility] Comment on above: Performed By: #### L 500.2500 #### [facility] [address] [place], [address] GFR/1.73 sq M.predicted among non-blacks MDRD (S/P/Bld) [Vol rate/Area] 25 mL/min/{1.73_m2} Low >60 [facility] Comment on above: Result Comment: mL/m in/1.73m2 CKD-EPI Creatinine Equation (2020) Performed By: #### L 500.2500 #### [facility] [address] [place], [address] Glucose [Mass/Vol] 133 mg/dL High 70-99 [facility] Comment on above: Performed By: #### L 500.2500 #### [facility] [address] [place], [address] Potassium [Moles/Vol] 4.4 mmol/L Normal 3.3-5.1 [facility] Comment on above: Performed By: #### L 500.2500 #### [facility] [address] [place], [address] Sodium [Moles/Vol] 140 mmol/L Normal 133-145 [facility] Comment on above: Performed By: #### L 500.2500 #### [facility] [address] [place], [address] Urea nitrogen [Mass/Vol] 44 mg/dL High 4-19 [facility] Comment on above: Performed By: #### L 500.2500 #### [facility] [address] [place], [address] Carbon dioxide, total [Moles /volume] in Central venous bloodOrdered By: Marj Poe on 02-14-2025 CO2 [Moles/Vol] 22.3 mmol/L 21.0-32.0 [facility] Chloride assayOrdered By: Deejay Poe on 02-14-2025 Chloride [Moles/Vol] 104 mmol/L 98-108 [facility] Glomerular filtration rate ( GFR) estimation/1.73 sq m using serum, plasma, or whole bOrdered By: Marj Poe on 02-14-2025 GFR/1.73 sq M.predicted among non-blacks MDRD (S/P/Bld) [Vol rate/Area] 25 mL/min/{1.73_m2} Low >60 [facility] Comment on above: mL/min/1.73m2 CKD-EP I Creatinine Equation (2020) Potassium measurement (mass/ volume)Ordered By: Marj Poe on 02-14-2025 Potassium (Unsp spec) [Mass/Vol] 4.4 mmol/L 3.3-5.1 [facility] Serum creatinine measurement (mass/volume)Ordered By: Marj Poe on 02-14-2025 Creatinine [Mass/Vol] 2.55 mg/dL High 0.70-1.20 [facility] Serum glucose measurement (m ass/volume)Ordered By: Marj Poe on 02-14-2025 Glucose [Mass/Vol] 133 mg/dL High 70-99 [facility] Serum or plasma calcium cecily urement (mass/volume)Ordered By: Marj Poe on 02-14-2025 Calcium [Mass/Vol] 8.8 mg/dL 7.6-11.0 [facility] Serum or plasma urea nitroge n measurement (mass/volume)Ordered By: Marj Poe on 02-14-2025 Urea nitrogen [Mass/Vol] 44 mg/dL High 4-19 [facility] Sodium levelOrdered By: Arvin Poe on 02-14-2025 Sodium [Moles/Vol] 140 mmol/L 133-145 [facility] Anion gap in Serum or Plasma Ordered By: Marj Poe on 02-10-2025 Anion gap [Moles/Vol] 11 mmol/L 5-15 [facility] BUN/creatinine ratioOrdered By: Marj Poe on 02-10-2025 Urea nitrogen/Creatinine [Mass ratio] 14.1 mg/mg 10-20 [facility] Basic Metabolic Profile (BMP )on 02-10-2025 BUN/CRE 14.1 RATIO Normal - [facility] Comment on above: Performed By: #### L 100.0500, L501.0900, L500.2500 ####[facility] [address] [place], [address] Calcium [Mass/Vol] 9.2 mg/dL Normal 7.6-11.0 [facility] Comment on above: Performed By: #### L 100.0500, L501.0900, L500.2500 ####[facility] [address] [place], [address] Chloride [Moles/Vol] 105 mmol/L Normal 98-108 [facility] Comment on above: Performed By: #### L 100.0500, L501.0900, L500.2500 ####[facility] [address] [place], [address] CO2 [Moles/Vol] 22.9 mmol/L Normal 21.0-32.0 [facility] Comment on above: Performed By: #### L 100.0500, L501.0900, L500.2500 ####[facility] [address] [place], [address] Creatinine [Mass/Vol] 2.76 mg/dL High 0.70-1.20 [facility] Comment on above: Performed By: #### L 100.0500, L501.0900, L500.2500 ####[facility] [address] [place], [address] GAP 11 Normal 5-15 [facility] Comment on above: Performed By: #### L 100.0500, L501.0900, L500.2500 ####[facility] [address] [place], [address] GFR/1.73 sq M.predicted among non-blacks MDRD (S/P/Bld) [Vol rate/Area] 23 mL/min/{1.73_m2} Low >60 [facility] Comment on above: Result Comment: mL/m in/1.73m2 CKD-EPI Creatinine Equation (2020) Performed By: #### L 100.0500, L501.0900, L500.2500 ####[facility] [address] [place], [address] Glucose [Mass/Vol] 186 mg/dL High 70-99 [facility] Comment on above: Performed By: #### L 100.0500, L501.0900, L500.2500 ####[facility] [address] [place], [address] Potassium [Moles/Vol] 6.3 mmol/L Invalid Interpretation Code 3.3-5.1 [facility] Comment on above: Result Comment: Crit ical Result(s) Called at 1306: by: DORI JONES TO QPLATT. ??Results read back by same. Performed By: #### L 100.0500, L501.0900, L500.2500 ####[facility] [address] [place], [address] Sodium [Moles/Vol] 139 mmol/L Normal 133-145 [facility] Comment on above: Performed By: #### L 100.0500, L501.0900, L500.2500 ####[facility] [address] [place], [address] Urea nitrogen [Mass/Vol] 39 mg/dL High 4-19 [facility] Comment on above: Performed By: #### L 100.0500, L501.0900, L500.2500 ####[facility] [address] [place], [address] Bilirubin directOrdered By: Memo Gannon on 02-10-2025 Bilirubin.direct [Mass/Vol] 0.25 mg/dL 0.00-0.30 [facility] Bilirubin, totalOrdered By: Memo Teressa on 02-10-2025 Bilirubin [Mass/Vol] 0.66 mg/dL 0.00-1.30 [facility] CBC-Complete Blood Cnt No Cait tayloron 02-10-2025 Erythrocyte distribution width (RBC) [Ratio] 17.0 % High 11.6-14.6 [facility] Comment on above: Performed By: #### L 100.0500, L501.0900, L500.2500 ####[facility] [address] [place], [address] Hematocrit (Bld) [Volume fraction] 44.7 % Normal 40-54 [facility] Comment on above: Performed By: #### L 100.0500, L501.0900, L500.2500 ####[facility] [address] [place], [address] Hemoglobin (Bld) [Mass/Vol] 13.8 g/dL Normal 13.0-16.5 [facility] Comment on above: Performed By: #### L 100.0500, L501.0900, L500.2500 ####[facility] [address] [place], [address] MCH (RBC) [Entitic mass] 27.7 pg Normal 27.0-32.0 [facility] Comment on above: Performed By: #### L 100.0500, L501.0900, L500.2500 ####[facility] [address] [place], [address] MCHC (RBC) [Mass/Vol] 30.9 g/dL Low 32-36 [facility] Comment on above: Performed By: #### L 100.0500, L501.0900, L500.2500 ####[facility] [address] [place], [address] MCV (RBC) [Entitic vol] 89.8 fL Normal 80-94 [facility] Comment on above: Performed By: #### L 100.0500, L501.0900, L500.2500 ####[facility] [address] [place], [address] Platelet mean volume (Bld) [Entitic vol] 11.9 fL Normal 6.2-12.0 [facility] Comment on above: Performed By: #### L 100.0500, L501.0900, L500.2500 ####[facility] [address] [place], [address] Platelets (Bld) [#/Vol] 122 10*3/uL Low 150-450 [facility] Comment on above: Performed By: #### L 100.0500, L501.0900, L500.2500 ####[facility] [address] [place], [address] RBC (Bld) [#/Vol] 4.98 10*6/uL Normal 4.6-6.2 [facility] Comment on above: Performed By: #### L 100.0500, L501.0900, L500.2500 ####[facility] [address] [place], [address] RDW SD 56.5 fl High 35.1-43.9 [facility] Comment on above: Performed By: #### L 100.0500, L501.0900, L500.2500 ####[facility] [address] [place], [address] WBC (Bld) [#/Vol] 5.8 10*3/uL Normal 4.4-11.0 [facility] Comment on above: Performed By: #### L 100.0500, L501.0900, L500.2500 ####[facility] [address] [place], [address] Calculated very low density lipoprotein (VLDL) cholesterol measurementOrdered By: Memo Gannon on 02-10-2025 Calculated very low density lipoprotein (VLDL) cholesterol measurement 43 mg/dL High 5-40 [facility] Carbon dioxide, total [Moles /volume] in Central venous bloodOrdered By: Marj Poe on 02-10-2025 CO2 [Moles/Vol] 22.9 mmol/L 21.0-32.0 [facility] Chloride assayOrdered By: Deejay Poe on 02-10-2025 Chloride [Moles/Vol] 105 mmol/L 98-108 [facility] Erythrocyte distribution wid th ratioOrdered By: Marj Poe on 02-10-2025 Erythrocyte distribution width (RBC) [Ratio] 17.0 % High 11.6-14.6 [facility] Erythrocyte distribution wid th standard deviationOrdered By: Marj Poe on 02-10-2025 Erythrocyte distribution width (RBC) [Ratio] 56.5 fl High 35.1-43.9 [facility] Glomerular filtration rate ( GFR) estimation/1.73 sq m using serum, plasma, or whole bOrdered By: Marj Poe on 02-10-2025 GFR/1.73 sq M.predicted among non-blacks MDRD (S/P/Bld) [Vol rate/Area] 23 mL/min/{1.73_m2} Low >60 [facility] Comment on above: mL/min/1.73m2 CKD-EP I Creatinine Equation (2020) Hematocrit Auto (Bld) [Volum e fraction]Ordered By: Marj Poe on 02-10-2025 Hematocrit (Bld) [Volume fraction] 44.7 % 40-54 [facility] Hemoglobin measurementOrdere d By: Marj Poe on 02-10-2025 Hemoglobin (Bld) [Mass/Vol] 13.8 g/dL 13.0-16.5 [facility] LDL calc ser/plasOrdered By: Memo Gannon on 02-10-2025 Cholesterol in LDL [Mass/Vol] 59 mg/dL [facility] Comment on above: Aclzrgjvru=193-085 m g/dL & Higher Rmgl=272 mg/dL or greaterFriedwald Equation for LDL-C Laboratory - Chemistry and C hemistry - challengeOrdered By: Memo Gannon on 02-10-2025 AST [Catalytic activity/Vol] 18 U/L <38 [facility] Lipid Profileon 02-10-2025 CHOL:HDL 4.24 Normal [facility] Comment on above: Performed By: #### L 500.4100, L500.3400 ####[facility] [address] [place], [address] Cholesterol [Mass/Vol] 134 mg/dL Normal <=200 [facility] Comment on above: Result Comment: Chol esterol level, Desirable <200 mg/dL Borderline high cholesterol 200-239 mg/dL High cholesterol >=240 mg/dL Recommendations of the NCEP Adult Treatment Panel for the following risk-cutoff thresholds for the [place] population. Performed By: #### L 500.4100, L500.3400 ####[facility] [address] [place], [address] Cholesterol in HDL [Mass/Vol] 32 mg/dL Low [facility] Comment on above: Result Comment: Keri onal Cholesterol Education Program (NCEP) guidelines: <40 mg/dL: Low HDL-cholesterol (major risk factor for CHD) >= 60 mg/dL: High HDL-cholesterol (negative risk factor for CHD) HDL-cholesterol is affected by a number of factors, e.g. smoking, exercise, hormones, sex and age. Performed By: #### L 500.4100, L500.3400 ####[facility] [address] [place], [address] Cholesterol in LDL [Mass/Vol] 59 mg/dL Normal [facility] Comment on above: Result Comment: Bord yqtymy=273-362 mg/dL Higher Hbmp=893 mg/dL or greater Friedwald Equation for LDL-C Performed By: #### L 500.4100, L500.3400 ####[facility] [address] [place], [address] Cholesterol in VLDL [Mass/Vol] 43 mg/dL High 5-40 [facility] Comment on above: Performed By: #### L 500.4100, L500.3400 ####[facility] [address] [place], [address] Triglyceride [Mass/Vol] 216 mg/dL High [facility] Comment on above: Result Comment: The drugs N-Acetylcysteine and Metamizole may falsely depress this assay. Normal range: <150 mg/dL Borderline High: 150-199 mg/dL High: 200-499 mg/dL Very High: >500 mg/dL Performed By: #### L 500.4100, L500.3400 ####[facility] [address] [place], [address] Liver Profileon 02-10-2025 Albumin [Mass/Vol] 4.0 g/dL Normal 3.4-4.8 [facility] Comment on above: Performed By: #### L 500.4100, L500.3400 ####[facility] [address] [place], [address] ALK PHOS 61 U/L Normal 40-129 [facility] Comment on above: Performed By: #### L 500.4100, L500.3400 ####[facility] [address] [place], [address] ALT [Catalytic activity/Vol] 20 U/L Normal <=46 [facility] Comment on above: Performed By: #### L 500.4100, L500.3400 ####[facility] [address] [place], [address] AST [Catalytic activity/Vol] 18 U/L Normal <=37 [facility] Comment on above: Performed By: #### L 500.4100, L500.3400 ####[facility] [address] [place], [address] Bilirubin [Mass/Vol] 0.66 mg/dL Normal 0.00-1.30 [facility] Comment on above: Performed By: #### L 500.4100, L500.3400 ####[facility] [address] [place], [address] Bilirubin.direct [Mass/Vol] 0.25 mg/dL Normal 0.00-0.30 [facility] Comment on above: Performed By: #### L 500.4100, L500.3400 ####[facility] [address] [place], [address] Globulin (S) [Mass/Vol] 3.0 g/dL Normal 2.2-4.2 [facility] Comment on above: Performed By: #### L 500.4100, L500.3400 ####[facility] [address] [place], [address] T PROT 7.0 g/dL Normal 5.9-8.4 [facility] Comment on above: Performed By: #### L 500.4100, L500.3400 ####[facility] [address] [place], [address] MCV (mean corpuscular volume ) determinationOrdered By: Marj Poe on 02-10-2025 MCV (RBC) [Entitic vol] 89.8 fL 80-94 [facility] Mean corpuscular hemoglobin (MCH) determinationOrdered By: Marj Poe on 02-10-2025 MCH (RBC) [Entitic mass] 27.7 pg 27.0-32.0 [facility] Mean corpuscular hemoglobin concentration (MCHC) determinationOrdered By: Marj Poe on 02-10-2025 MCHC (RBC) [Mass/Vol] 30.9 g/dL Low 32-36 [facility] Mean platelet volume determi nationOrdered By: Marj Poe on 02-10-2025 Platelet mean volume (Bld) [Entitic vol] 11.9 fL 6.2-12.0 [facility] Platelet countOrdered By: Deejay Poe on 02-10-2025 Platelets (Bld) [#/Vol] 122 10*3/uL Low 150-450 [facility] Potassium measurement (mass/ volume)Ordered By: Marj Poe on 02-10-2025 Potassium (Unsp spec) [Mass/Vol] 6.3 mmol/L High 3.3-5.1 [facility] Comment on above: Critical Result(s) C alled at 1306: by: DORI JONES TO QPLATT. Results read back by same. Protein+Creatinine Ratio,Uri neon 02-10-2025 PROT:CRE RATIO 183 mg/g CRE Normal 0-200 [facility] Comment on above: Performed By: #### L 100.0500, L501.0900, L500.2500 ####[facility] [address] [place], [address] Protein (U) [Mass/Vol] 20.0 mg/dL High 0.0-12.0 [facility] Comment on above: Performed By: #### L 100.0500, L501.0900, L500.2500 ####[facility] [address] [place], [address] UR CREAT 109.00 mg/dL Normal 39.00-259. 00 [facility] Comment on above: Performed By: #### L 100.0500, L501.0900, L500.2500 ####[facility] [address] [place], [address] RBC Auto (Bld) [#/Vol]Ordere d By: Marj Poe on 02-10-2025 RBC (Bld) [#/Vol] 4.98 10*6/uL 4.6-6.2 [facility] Random urine creatinine cecily urement (mass/volume)Ordered By: Marj Poe on 02-10-2025 Creatinine Unsp time (U) [Mass/Vol] 109.00 mg/dL 39.00-259. 00 [facility] Screening total cholesterol/ high density lipoprotein (HDL) cholesterol ratioOrdered By: Memo Gannon on 02-10-2025 Cholesterol.total/Cho lesterol in HDL [Mass ratio] 4.24 {ratio} [facility] Serum creatinine measurement (mass/volume)Ordered By: Marj Poe on 02-10-2025 Creatinine [Mass/Vol] 2.76 mg/dL High 0.70-1.20 [facility] Serum globulin measurementOr dered By: Memo Gannon on 02-10-2025 Globulin (S) [Mass/Vol] 3.0 g/dL 2.2-4.2 [facility] Serum glucose measurement (m ass/volume)Ordered By: Marj Poe on 02-10-2025 Glucose [Mass/Vol] 186 mg/dL High 70-99 [facility] Serum or plasma alanine graham otransferase (ALT) measurementOrdered By: Memo Gannon on 02-10-2025 ALT [Catalytic activity/Vol] 20 U/L <47 [facility] Serum or plasma albumin cecily urement (mass/volume)Ordered By: Memo Gannon on 02-10-2025 Albumin [Mass/Vol] 4.0 g/dL 3.4-4.8 [facility] Serum or plasma alkaline nadiya sphatase measurementOrdered By: Memo Gannon on 02-10-2025 ALP [Catalytic activity/Vol] 61 U/L 40-129 [facility] Serum or plasma calcium cecily urement (mass/volume)Ordered By: Marj Poe on 02-10-2025 Calcium [Mass/Vol] 9.2 mg/dL 7.6-11.0 [facility] Serum or plasma cholesterol in HDL measurement (mass/volume)Ordered By: Memo Gannon on 02-10-2025 Cholesterol in HDL [Mass/Vol] 32 mg/dL Low >40 [facility] Comment on above: National Cholesterol Education Program (NCEP) guidelines:<40 mg/dL: Low HDL-cholesterol (major risk factor for CHD)>= 60 mg/dL: High HDL-cholesterol (negative risk factor for CHD)HDL-cholesterol is affected by a number of factors, e.g. smoking, exercise, hormones, sex and age. Serum or plasma cholesterol measurement (mass/volume)Ordered By: Memo Gannon on 02-10-2025 Cholesterol [Mass/Vol] 134 mg/dL <201 [facility] Comment on above: Cholesterol level, D esirable <200 mg/dLBorderline high cholesterol 200-239 mg/dLHigh cholesterol >=240 mg/dLRecommendations of the NCEP Adult Treatment Panel for the following risk-cutoff thresholds for the [place] population. Serum or plasma urea nitroge n measurement (mass/volume)Ordered By: Marj Poe on 02-10-2025 Urea nitrogen [Mass/Vol] 39 mg/dL High 4-19 [facility] Sodium levelOrdered By: Arvin Poe on 02-10-2025 Sodium [Moles/Vol] 139 mmol/L 133-145 [facility] Total proteinOrdered By: Sami Gannon on 02-10-2025 Protein [Mass/Vol] 7.0 g/dL 5.9-8.4 [facility] Triglycerides measurementOrd ered By: Memo Gannon on 02-10-2025 Triglyceride [Mass/Vol] 216 mg/dL High <199 [facility] Comment on above: The drugs N-Acetylcy steine and Metamizole may falsely depress this assay. Normal range: <150 mg/dLBorderline High: 150-199 mg/dLHigh: 200-499 mg/dLVery High: >500 mg/dL Urine protein measurement (m ass/volume)Ordered By: Marj Poe on 02-10-2025 Protein (U) [Mass/Vol] 20.0 mg/dL High 0.0-12.0 [facility] Urine protein/creatinine mas s ratioOrdered By: Marj Poe on 02-10-2025 Protein/Creatinine (U) [Mass ratio] 183 mg/g CRE 0-200 [facility] White blood cell (WBC) count Ordered By: Marj Poe on 02-10-2025 WBC (Bld) [#/Vol] 5.8 10*3/uL 4.4-11.0 [facility] Internal Medicine Office Vis [facility] 01-26-2025 Internal Medicine Office Visit [facility] [address] [place] [address] OFFICE VISIT Date of Service: 01/26/25 MR#: [id number] Acct: [id number] Name: SHERRELL GENAO Rep #: [id number] : 1945 Provider: Dr. 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: No Accompanied by: Self Is patient in pain?: No Allergies No Known Allergies Allergy (Verified 01/26/25 10:30) Medications ???Medication ???Instructions ???Recorded ???Confirmed ???Type vitamins A,C,Y-jluq-pjkmfn 4,296 1 cap PO BID supplement 03/24/19 0 01/26/25 History mcg-226 mg-90 mg capsule (PreserVision AREDS) carvedilol 25 mg tablet 25 mg PO BID blood pressure #180 0 12/10/23 01/26/25 Rx tabs losartan 25 mg tablet 25 mg PO DAILY #90 tabs 01/19/24 0 01/26/25 Rx hydrocortisone 2.5 % topical cream 1 applic topical BID PRN rash #4 54 03/01/24 01/26/25 Rx grams simvastatin 20 mg tablet 20 mg PO QHS #90 tabs 04/01/24 Rx dulaglutide 4.5 mg/0.5 mL 4.5 mg (0.5 mL) subcut QWEEK 3 05/0701/26/25 Rx subcutaneous pen injector months #6.5 mL (Trulicity) furosemide 40 mg tablet 40 mg PO BID PRN SOB #180 tabs 01/26/25 Rx dapagliflozin propanediol 10 mg 10 mg PO DAILY #90 tabs 08/26/24 0 01/26/25 Rx tablet (Farxiga) glimepiride 4 mg tablet 4 mg PO BID #180 tabs 01/26/25 Rx Have you fallen in the past year?: No Nurse's Note: would like to discuss medications specifically trulicity may be causing stomach issues [facility] Medical History (Updated 01/26/25 @ 12:[address] Shane Schreiber MD) Diastasis recti Cataract GERD (gastroesophageal reflux disease) Diarrhea Chronic fatigue Screening for thyroid disorder Swallowing difficulty Orthopnea Thrombocytopenia Obesity Pleural effusion on left Dilated cardiomyopathy Chronic combined systolic and diastolic CHF (congestive heart failure) Chronic kidney disease (CKD) Essential (primary) hypertension Renal carcinoma Type 2 diabetes mellitus History of prostate cancer Urinary frequency Decreased hearing Vision loss Bladder cancer Vascular disease Prostate disease Kidney disease Hyperlipidemia Gout Bone fracture Arthritis Seasonal allergies Surgical History 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) H/O transurethral destruction of bladder lesion History of nephrectomy, left Varicose veins of both lower extremities Hx of cholecystectomy Family History Father Hypertension Melanoma Social History Smoking Status: Former smoker quit date: 07/14/89 Tobacco: How many years used: 15 how long ago did patient quit smokin years ago alcohol intake: never substance use type: does not use caffeine: Yes Type: coffee Number of servings: 3 what type of physical activity do you participate in: walking frequency: daily HPI HPI Chief Complaint: 3 M FU Details: SHERRELL GENAO, is a 79-year-old male presenting with diabetes management and gastrointestinal symptoms related to medication. He recently underwent cataract surgery, with the second procedure delayed due to the surgeon's unavailability, and is awaiting new glasses. He reports significant gastrointestinal symptoms, including bloating and diarrhea, attributed to Trulicity, which improved after discontinuation of the medication. His blood glucose levels have improved, with recent readings showing a decrease. With going down on Trulicity, he increase his dose of glimepiride to 4 mg twice daily to be explaining the decrease in his numbers. Other chronic medical conditions are stable. Attestation: Documentation on this patient encounter was supported using ambient scribe technology/ voice AI technology. The patient consented to recording for the purpose of documenting the encounter. Provider reviewed content of the generated note prior to signature. ROS Const Constitutional: No body ache, excessive sweating, fatigue, fever(s), frequent falls, headache(s), snoring, weakness, weight change, sleep problems or change in appetite Eyes Eyes: No blurry vision, change in vision, eye pain or Light sensitivity ENT ENT: No abnormal hearing, ear or mastoid pain, tinnitus, nasal con (more content not included)... Normal [facility] - Hematology and Cell countsOrdered By: Shane Schreiber on 01-26-2025 HbA1c (Bld) [Mass fraction] 7.5 % High 4.2-6.3 [facility] ANES POSTPROC EVALon 025 ANES POSTPROC EVAL HNO ID: [id number] Author: BURAK PALMA MD Service: Anesthesiology Author Type: Anesthesiologist Type: Anesthesia Postprocedure Evaluation Filed: 12/21/2024 08:31 Note Text: POST ANESTHESIA EVALUATION NOTE : 1945 Procedure Summary Date: 12/21/24 Room / Location: [place] [address] / [facility] Anesthesia Start: 745 Anesthesia Stop: 815 Procedures: PHACOEMULSIFICATION CATARACT IMPLANT INTRAOCULAR LENS W/O ENDOSCOPIC CYCLOPHOTOCOAGULATION (Left: Eye) OPHTHALMIC BIOMETRY BY PARTIAL COHERENCE INTERFEROMETRY W/INTRAOCULAR LENS POWER CALCULATION (Left: Eye) Diagnosis: Combined forms of age-related cataract of both eyes (Combined forms of age-related cataract of both eyes [H25.813]) Surgeons: Johan Jimenez MD Responsible Provider: Burak Palma MD Anesthesia Type: MAC ASA Status: 3 Anesthesia Type: MAC Last Vitals Vitals Value Taken Time BP 159/81 12/21/24 0827 Temp 36.1 ?C (97 ?F) 12/21/24 0817 Pulse 74 12/21/24 0827 Resp 16 12/21/24 0827 SpO2 96 % 12/21/24 0827 Post Anesthesia Patient Status Patient Evaluation: bedside. Anticipated Disposition: phase 2 then home. Neurological Status: aware and responsive. Pulmonary Status: breathing comfortably on room air Airway Control: returned to baseline unsupported. Cardiovascular Status: stable. Pain Management: clinically adequate Postoperative Hydration: acceptable. Intraoperative Events: no significant anesthesia events Post Operative Nausea/Vomiting Status: no significant post operative nausea or vomiting Recommendation: continue current plan of care. Anesthesia Observations No Documentation SIGNATURE: Burka Palma MD PATIENT NAME: Sherrell Genao DATE: December 21, 2024 TIME: 8:30 AM CSN: [id number] [facility] ANES PRE-OPon 12-21-2024 ANES PRE-OP HNO ID: [id number] Author: BURAK PALMA MD Service: Anesthesiology Author Type: Anesthesiologist Type: Anesthesia Preprocedure Evaluation Filed: 12/21/2024 07:45 Note Text: ANESTHESIOLOGY DAY OF SURGERY NOTE : 1945 Procedure Information Date/Time: 12/21/24 0800 Procedures: PHACOEMULSIFICATION CATARACT IMPLANT INTRAOCULAR LENS W/O ENDOSCOPIC CYCLOPHOTOCOAGULATION (Left: Eye) OPHTHALMIC BIOMETRY BY PARTIAL COHERENCE INTERFEROMETRY W/INTRAOCULAR LENS POWER CALCULATION (Left: Eye) Location: [place] [address] / [facility] Surgeons: Johan Jimenez MD Estimated body mass index is 31.42 kg/m? as calculated from the following: Height as of 12/13/24: 177.8 cm (5' 10). Weight as of 12/13/24: 99.3 kg (219 lb). Most recent hematocrit and potassium results: No results found for this basename: HCT,HEMATOCRIT,K,POTASSIU M Relevant Problems CARDIO (+) Bilateral carotid artery stenosis (+) Hypertension (+) Nonrheumatic mitral valve regurgitation (+) Pulmonary arterial hypertension (HCC) (+) Varicose veins of lower extremity ENDO (+) Type 2 diabetes mellitus without retinopathy (HCC) -RENAL (+) Chronic kidney disease (+) Malignant neoplasm of left kidney (HCC) I - PHYSICAL EVALUATION AIRWAY Patient intubated: No. Tracheostomy tube not present Mallampati: II. TM distance: >3 FB. Neck ROM: full ROM without neurological symptoms. Mouth opening: adequate. Short neck: no. Thick neck: no Márquez present: no Microretrognathia/Microna gthia/Recessed Chin: No DENTAL Dental findings: teeth intact. Additional exam findings: yes. CARDIOVASCULAR Rhythm: regular Rate: normal PULMONARY Breath sounds clear to auscultation. II - ANESTHESIA PLAN ASA Score: 3 Anesthetic Plan: MAC The patient is not a current smoker. NPO Status: adequate Beta Ken Administration of chronic beta ken medication not planned. Reasons for not administering beta ken perioperatively: bradycardia and hypotension Monitoring Plan Monitoring plan: standard ASA. Post Procedure Analgesic Plan Postoperative analgesic plan: other. Informed Consent Anesthetic risks, benefits, alternatives, personnel and consent discussed: yes. Patient / Responsible Green Party agrees to proceed: yes Patient / Surrogate agrees to blood products: blood products not planned DNR status not reviewed with patient and/or family prior to surgery. Significant changes in the patient condition since the History and Physical, not otherwise documented in primary service progress note: no. Potential Anesthesia issues that may suggest increased risk of complications or contraindication to planned procedure: none. Vitals Value Taken Time BP 153/90 12/21/24 0709 Pulse 77 12/21/24 0658 Resp 24 12/21/24657 Temp 36.3 ?C (97.4 ?F) 12/21/24 0657 SpO2 98 % 12/21/2458 Facility-Administered Medications as of 12/21/2024 Medication Dose Route Frequency [COMPLETED] cyclopentolate 1%-tropicamide 1%-PHENYLephrine 2.5% ophthalmic drops 1 drop LEFT EYE q 3 min Outpatient Medications as of 12/21/2024 Medication Sig carvedilol (COREG) 12.5 mg tablet TAKE 1 TABLET BY MOUTH TWICE A DAY WITH MEAL/FOOD prednisoLONE acetate (PRED FORTE) 1 % ophthalmic suspension Use 1 Drop in the right eye four times daily. Start drops 2 (two) days prior to your scheduled surgery date 4 four times a day . Use one drop the morning of surgery. Restart following surgery as per instructions given (Patient not taking: Reported on 12/13/2024) acetaminophen (TYLENOL EXTRA STRENGTH ORAL) Take by mouth. FARXIGA 10 mg tablet Take 1 tablet by mouth every afternoon. glimepiride (AMARYL) 1 mg tablet 4 mg. furosemide (LASIX) 40 mg tablet Take 1 tablet by mouth once daily. losartan (COZAAR) 25 mg tablet Take 1 tablet by mouth once daily. SIMVASTATIN ORAL Take 10 mg by mouth once daily. dulaglutide (TRULICITY) 0.75 mg / 0.5 ml subcutaneous pen injector Inject subcutaneously. vit C,D-Fq-wqpmo-lutein-zeaxa n (PRESERVISION AREDS-2) [phone] ch-zqry-gz-mg cap Take 1 capsule by mouth twice daily. I have interviewed and examined the patient. I have reviewed the medical record and/or the pre-anesthesia evaluation, pertinent labs, and test results. This contains updated information obtained within 48 hours of Surgery/Procedure. SIGNATURE: Burak Palma MD PATIENT NAME: Sherrell Genao DATE: December 21, 2024 TIME: 7:44 AM CSN: [id number] [facility] OPERATIVE NOon 12-21-2024 OPERATIVE NO HNO ID: [id number] Author: JOHAN JIMENEZ MD Service: Ophthalmology Author Type: Physician Type: Operative Report Filed: 12/21/2024 08:16 Note Text: OPERATIVE/PROCEDURE REPORT OPHTHAMOLOGY LOG ID: [id number] SURGERY/PROCEDURE DATE: 12/21/2024 INCISION/PROCEDURE START TIME: 7:58 AM INCISION CLOSE/PROCEDURE END TIME: 8:14 AM SURGEON(S)/PROCEDURALIST( S) AND CASING FLUSHER(S): Surgeons and Role: * Johan Jimenez MD - Primary PROCEDURE(S): Procedure(s) (LRB): PHACOEMULSIFICATION CATARACT IMPLANT INTRAOCULAR LENS W/O ENDOSCOPIC CYCLOPHOTOCOAGULATION (Left) OPHTHALMIC BIOMETRY BY PARTIAL COHERENCE INTERFEROMETRY W/INTRAOCULAR LENS POWER CALCULATION (Left) PREOPERATIVE DIAGNOSIS: Combined form of age-related cataract, Left eye POST-OP/POST-PROCEDURE DIAGNOSIS: Same as Preop OPERATIVE INDICATIONS: Blurred vision affecting activities of daily living (ADLs) ANESTHESIA: Monitored Anesthesia Care PROCEDURE DETAILS: The patient was transferred to the operating room where the eye was prepared and draped in sterile fashion. An eyelid speculum was placed and a paracentesis was performed. Preservative-free lidocaine 1% and viscoelastic were injected into the anterior chamber. A keratome was used to perform a clear corneal incision. Capsulorrhexis and hydrodissection were performed. The lens nucleus was removed with the phacoemulsification instrument. The residual cortex was removed with the irrigation/aspiration instrument. The capsular bag was filled with viscoelastic, and the above-noted intraocular lens was inserted into the capsular bag. The residual viscoelastic was removed with the irrigation/aspiration instrument. The anterior chamber was reformed with balanced salt solution and the corneal wounds were hydrated. A water-tight corneal closure was achieved. No suture(s) were placed in the wound. Intracameral injection of antibiotic was performed. Topical steroid medication was applied to the operated eye and it was covered with a protective shield. The patient was transferred to the recovery room in stable condition. I have reviewed the images and report from the Ophthalmic Biometry December 21, 2024 to determine the Intraocular lens Power Calculation for the IOL lens implant. I have interpreted and agree with the calculation of the IOL as listed below. ESTIMATED BLOOD LOSS: Minimal unless noted here. SPECIMENS: * No specimens in log * IMPLANTABLE DEVICES: Implant Name Type Inv. Item Serial No. Soa Integration Developer Lot No. LRB No. Used Action Model No. [id number] [facility] [employer] - [id number] Intraocular Lens [id number] [facility] [employer]OM [id number] [employer] Left 1 Implanted [id number] Ocular Co-Morbidities: Yes Intra-operative Complications None I/primary surgeon/proceduralist performed the entire procedure. SIGNATURE: Johan Jimenez MD PATIENT NAME: Sherrell Genao DATE: December 21, 2024 TIME: 8:16 AM PAGER/CONTACT #: [phone] [facility] NURSING PROGon 12-16-2024 NURSING PROG HNO ID: [id number] Author: DAVID WORRELL RN Service: ? Author Type: Registered Nurse Type: Nursing Progress Note Filed: 12/16/2024 09:30 Note Text: Preoperative Phone Call Instructions Your arrival time for your procedure tomorrow is 0645 NPO for 8 hrs prior to arriving for surgery, clear liquids only up until 2 hours prior to arrival Transportation w/ responsible adult-no Uber or medical transport We are located at [address] [place] [address] in [facility], [address] on the second floor Leave all valuables, jewelry and piercings at home, the only thing you need to bring is a photo id and insurance card Wear a short sleeve shirt as we will need access to your arm to start an IV No makeup of any kind on the day of surgery Contacts must be removed prior to arrival Discuss fertility status if under 60 Do you have any further questions or concerns No Oral Hypoglycemics: Metformin/Glucophage, linagliptin/Tradjenta, pioglitazone/Actos, glimeperide/Amaryl, glucotrol/Glipizide, sitagliptin/Januvia, glyburide, repaglinide/Prandin, nateglinide/Starlix, pramlintide/Symlin---HOLD ALL ON DOS SGLT2 inhibitors: canagliflozin/Invokana, dapagliflozin/Farxiga, empagliflozin/Jardiance-- -HOLD FOR 3 DAYS PREOPERATIVELY SGLT2 INHIBITOR: Ertugliflozin/Steglatro-- -HOLD FOR 4 DAYS PRIOR TO SURGERY Non-insulin injectables (except GLP-Agonist) HOLD THE DAY OF SURGERY GLP-1 Agonists: dulaglutide/Trulicity, semaglutide/Ozempic/Rybel nancy, Wegovy, liraglutide/Victoza/Saxen da, lixsenstide/Adlyxin, tirzepatide/Mounjaro, exenatide/Bydureon/Byetta ---HOLD THE DOSE ONE WEEK PRIOR TO SURGERY GLP-1 Agonists: oral or DAILY injectable: Rybelsus semaglutide--- HOLD DAY OF SURGERY Insulin pump--- Follow protocol continue basal rate Long or Intermediate acting insulin: glargine/Basaglar/Lantus/ Toujeo, detemir/Levemir, degludec/Tresiba, NPH, 70/30--- Take 75% of normal dose the night before surgery (if possible), Check fasting AM glucose. If 200 or greater, take half the prescribed dose, if under 200, hold AM dose. Short acting insulin:aspart/Novolog, regular insulin/Humulin R, lispro/Humalog, glulisine/Apidra, Afrezza---HOLD ALL ON DAY OF SURGERY [facility] HISTORY PHYSICALon HISTORY PHYSICAL HNO ID: [id number] Author: JOSE CORREIA APRN.FILTERING MACHINE TENDER HELPER Service: ? 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 BMI 31.0-31.9,adult Assessment: Body mass index is 31.42 kg/m?. Hypertension Assessment: Stable and compliant with medications. Follows with PCP. Last 3 Encounter BP Readings: Date: BP: 12/13/2024 128/84 09/06/2024 145/82 08/25/2024 108/70 Implantable cardioverter-defibrillato r (ICD) in situ Assessment: Follows Cardiology - Dr. Hilliard Denies any heart palpitations, edema, chest pain, shortness of breath, syncope, activity intolerance, or dizziness. Records and last interrogation in scanned documents. Type of device/Soa Integration Developer: Catavolt Last interrogation: 08/10/24 Pacemaker dependency: N/a Surgical site: Eyes Location of CIED generator in body: Chest Device rep needed: No Chronic combined systolic and diastolic heart failure (HCC) Assessment: Compliant on medications. Appears euvolemic, denies new or worsening cardiac symptoms. Follows Cardiology Type 2 diabetes mellitus without retinopathy (HCC) Assessment: Reports compliance to medication. Reports BS checks ranging in the 120s fasting. Encouraged lifestyle modifications. Last hemoglobin A1C around 7% per patient. Pulmonary arterial hypertension (HCC) Assessment: per [facility], records requested. Nonrheumatic mitral valve regurgitation Assessment: per [facility], records requested Bilateral carotid artery stenosis Assessment: chronic, stable, no surgical interventions, following cardiology, records requested. ANESTHESIA FINDINGS: Intubation History: No history of difficult intubation. No abnormal airway history Significant Anesthesia Considerations: none Airway History: No history of difficult airway No abnormal airway history Perez Activity Status Index: METS: Walk indoors, such as around the house (1.75 METs) Do light work around the house, such as dusting or washing dishes (2.70 METs) Take care of self; that is eating, dressing, bathing, using the toilet (2.75 METs) Walk a block or two on level ground (2.75 METs) Do moderate work around the house, such as vacuuming, sweeping floors, or carrying in groceries (3.50 METs) Climb a flight of stairs or walk up a hill (5.50 METs) DASI Score: 18.95 Patient denies any chest pain or undue shortness of breath with the above physical activity. Clinical Frailty Scale: 3. Well, with treated comorbid disease STOP-Bang Score: Has or is being treated for high blood pressure Patient over 50 years old Male patient Denies snoring loudly Denies feeling tired, fatigued, or sleepy during the daytime Has not been observed to stop breathing or choking/gasping during sleep BMI less than or equal to 35 kg/m2 Does not have a large neck STOP-Bang Score: 3 I - PHYSICAL EVALUATION AIRWAY Patient intubated: No. Tracheostomy tube not present Mallampati: II. TM distance: >3 FB. Neck ROM: full ROM without neurological symptoms. Mouth opening: adequate. Short neck: no. Thick neck: no DENTAL Dental findings: teeth intact. Additional comments: + scattered crowns. II - ANESTHESIA PLAN Anesthetic plan additional comments: *PACC/TCI - anesthesia choice. Beta Ken Monitoring Plan Post Procedure Analgesic Plan Prepared for Surgery: optimally prepared for surgery. CONSULTS: Patient does not require consults for optimization at this time Planned Anesthetic: anesthesia choice The Following Tests/Procedures Have Been Initiated: No orders of the defined types were placed in this encounter. REASON FOR VISIT: Sherrell Genao is a 79 year old male who is scheduled for Procedure(s): PHACOEMULSIFICATION CATARACT IMPLANT INTRAOCULAR LENS W/O ENDOSCOPIC CYCLOPHOTOCOAGULATION (Left) OPHTHALMIC BIOMETRY BY PARTIAL COHERENCE INTERFEROMETRY W/INTRAOCULAR LENS POWER CALCULATION (Left) at the request of Dr. Johan Jimenez for consultation. My final recommendation will be communicated back to the requesting physician by way of shared medical record or letter. Subjective The patient has the following: COVID-19 Immunization Status Current Care Gaps Covid-19 Vaccine ( season) Overdue since 11/23/2024 05/26/2024 Imm Admin: COVID-19 vaccine, age 12+ yr (MODERNA) 04/18/2023 Imm Admin: COVID-19 vaccine, age 12+ yr (MODERNA) 04/04/2022 Imm Admin: COVID-19 vaccine, age 12+ yr, bivalent (MODERNA) Only the first 3 history entries have been loaded, but more history exists. CHIEF COMPLAINT: pre o (more content not included)... Normal [facility] Vitamin D 1,25-Dihydroxyon 0 10-15-2024 VIT D 1,25 DIHY 6.3 pg/mL Abnormal 24.8-81.5 [facility] Comment on above: Result Comment: Perf ormed at: [facility] - [facility] [address] [id number] Welding Specialist: Bruce Sanchez MD, Phone: [phone] Performed By: #### L [id number], L506.0400, L3300.3760 ####[facility] [id number] [place], [address] 1,25-dihydroxyvitamin D3 [Ma ss/Vol]Ordered By: Shane Schreiber on 10-13-2024 Vitamin D 1,25-Dihydroxy 6.3 pg/mL Low 24.8-81.5 [facility] Comment on above: Performed at: [facility] [address] [id number] Director: Bruce Sanchez MD, Phone: [phone] Internal Medicine Office Vis iton 10-13-2024 Internal Medicine Office Visit [facility] [address] [place], [place] [address] OFFICE VISIT Date of Service: 10/13/24 MR#: [id number] Acct: [id number] Name: SHERRELL GENAO Rep #: [id number] : 1945 Provider: Dr. 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 Required: No Accompanied by: Self Is patient in pain?: No Allergies No Known Allergies Allergy (Verified 10/13/24 09:23) Medications ???Medication ???Instructions ???Recorded ???Confirmed ???Type vitamins A,C,K-doyk-smajld 4,296 1 cap PO BID supplement 03/24/19 0 10/13/24 History mcg-226 mg-90 mg capsule (PreserVision AREDS) carvedilol 25 mg tablet 25 mg PO BID blood pressure #180 0 12/10/23 10/13/24 Rx tabs losartan 25 mg tablet 25 mg PO DAILY #90 tabs 01/19/24 0 10/13/24 Rx glimepiride 4 mg tablet 4 mg PO QAM #90 tabs 03/01/2409/07 Rx hydrocortisone 2.5 % topical cream 1 applic topical BID PRN rash #4 54 03/01/24 10/13/24 Rx grams simvastatin 20 mg tablet 20 mg PO QHS #90 tabs 04/01/2409/07 Rx dulaglutide 4.5 mg/0.5 mL 4.5 mg (0.5 mL) subcut QWEEK 3 05/0710/13/24 Rx subcutaneous pen injector months #6.5 mL (Trulicity) furosemide 40 mg tablet 40 mg PO BID PRN SOB #180 tabs 10/13/24 Rx dapagliflozin propanediol 10 mg 10 mg PO DAILY #90 tabs 08/26/24 0 10/13/24 Rx tablet (Farxiga) Have you fallen in the past year?: No PFSH Medical History (Updated 10/13/24 @ 12:[address] Shane Schreiber MD) GERD (gastroesophageal reflux disease) Diarrhea Chronic fatigue Screening for thyroid disorder Swallowing difficulty Orthopnea Thrombocytopenia Obesity Pleural effusion on left Dilated cardiomyopathy Chronic combined systolic and diastolic CHF (congestive heart failure) Chronic kidney disease (CKD) Essential (primary) hypertension Renal carcinoma Type 2 diabetes mellitus History of prostate cancer Urinary frequency Decreased hearing Vision loss Bladder cancer Vascular disease Prostate disease Kidney disease Hyperlipidemia Gout Bone fracture Arthritis Seasonal allergies Surgical History 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) H/O transurethral destruction of bladder lesion History of nephrectomy, left Varicose veins of both lower extremities Hx of cholecystectomy Family History Father Hypertension Melanoma Social History Smoking Status: Former smoker quit date: 07/14/89 Tobacco: How many years used: 15 how long ago did patient quit smokin years ago alcohol intake: never substance use type: does not use caffeine: Yes Type: coffee Number of servings: 3 what type of physical activity do you participate in: walking frequency: daily HPI HPI Chief Complaint: 3 M FU Details: SHERRELL GENAO, is a 79 M who presents to the office today for follow-up of his chronic conditions. Also has some concerns. He states that over the last couple of weeks he has had increased reflux symptoms. Since then, has made dietary changes cutting out caffeine some other foods with improvement in his symptoms. No dark or bloody stool or unintentional weight changes. History of diabetes mellitus type 2 and A1c today is at 7.9 up from 7.7. He states that he was out of his Trulicity for a few weeks surrounding his cataract surgery. Has come back to taking it consistently no concerns for hypoglycemia. Chronic history of fatigue, he however states that lately he feels more tired. Does not have the same get up and go that he had recently. Feels well rested when he wakes up. Appetite is good no significant unintentional weight changes. Other chronic conditions are stable. ROS Const Constitutional: No body ache, excessive sweating, fatigue, fever(s), frequent falls, headache(s), snoring, weakness, weight change, sleep problems or change in appetite Eyes Eyes: No blurry vision, change in vision, floaters, visual disturbances, eye pain or Light sensitivity ENT ENT: No abnormal hearing, ear or mastoid pain, tinnitus, balance problems, nosebleed/epistaxis, nasal congestion, headache(s), neck pain or sore throat Resp Respiratory: No cough, excessive phlegm production, pain on inspirati (more content not included)... Normal [facility] - Hematology and Cell countsOrdered By: Shane Schreiber on 10-13-2024 HbA1c (Bld) [Mass fraction] 7.9 % High 4.2-6.3 [facility] Serum or plasma calcitriol m easurement (mass/volume)Ordered By: Shane Schreiber on 10-13-2024 1,25-dihydroxyvitamin D3 [Mass/Vol] 6.3 pg/mL Low 24.8-81.5 [facility] Comment on above: Performed at: [facility] [id number] [place], [place] [id number] Director: Bruce Sanchez MD, Phone: [phone] T4 Free Directon 10-13-2024 T4 FREE DIRECT 1.50 ng/dL High 0.76-1.46 [facility] Comment on above: Performed By: #### L 501.9520, L506.0400, L3300.0960 ####[facility] [address] [place], [place], [phone] T4 freeOrdered By: Shane Schreiber on 10-13-2024 Free T4 [Mass/Vol] 1.50 ng/dL High 0.76-1.46 [facility] TSH DL <= 0.005 mIU/L QnOrde red By: Shane Schreiber on 10-13-2024 Thyroid Stimulating Hormone (TSH) 1.440 uIU/mL 0.300-4.20 0 [facility] TSH Qn 1.440 uIU/mL 0.300-4.20 0 [facility] Thyroid Stim Hormone (TSH)on 10-13-2024 TSH 1.440 uIU/mL Normal 0.300-4.20 0 [facility] Comment on above: Performed By: #### L 501.9520, L506.0400, L3300.0960 ####[facility] [address] [place], [address] Diagnostic total prostate sp ecific antigen (PSA) measurementOrdered By: Jcoelyn Mendoza on 09-30-2024 Prostate Specific Antigen Total 1.35 ng/mL 0.00-4.00 [facility] Comment on above: This test was perfor med using the [employer] tPSA method. Measured values of a patient sample can vary depending on the testing procedure used. PSA values determined on patient samples by different testing procedures cannot be used interchangeably. If there is a change in PSA assays while monitoring therapy, sequential testing should be performed to confirm baseline values. PSA,Total- [employer] 09-12 PSA, DIAGNOSTIC 1.35 ng/mL Normal 0.00-4.00 [facility] Comment on above: Result Comment: This test was performed using the [employer] tPSA method. Measured values of a patient??sample can vary depending on the testing procedure used. PSA values determined on patient samples by different testing procedures cannot be used interchangeably. If there is a change in PSA assays while monitoring therapy, sequential testing should be performed to confirm baseline values. Performed By: #### L 501.9940 ####[facility] [address] [place], [address] OCT MACULA CIRRUS OU (BOTH E YES)on 09-22-2024 [facility] Radiology Study observation (narrative) [facility] ANES POSTPROC EVALon 025 ANES POSTPROC EVAL HNO ID: [id number] Author: EZIO BLOOM MD Service: Anesthesiology Author Type: Anesthesiologist Type: Anesthesia Postprocedure Evaluation Filed: 09/06/2024 10:12 Note Text: POST ANESTHESIA EVALUATION NOTE : 1945 Procedure Summary Date: 09/06/24 Room / Location: [place] [address] / [facility] Anesthesia Start: 0837 Anesthesia Stop: 910 Procedures: PHACOEMULSIFICATION CATARACT IMPLANT INTRAOCULAR LENS W/O ENDOSCOPIC CYCLOPHOTOCOAGULATION (Right: Eye) OPHTHALMIC BIOMETRY BY PARTIAL COHERENCE INTERFEROMETRY W/INTRAOCULAR LENS POWER CALCULATION (Right: Eye) Diagnosis: Combined forms of age-related cataract of right eye (Combined forms of age-related cataract of right eye [H25.811]) Surgeons: Johan Jimenez MD Responsible Provider: Ezio Bloom MD Anesthesia Type: MAC ASA Status: 3 Anesthesia Type: MAC Last Vitals Vitals Value Taken Time BP 135/96 09/06/24 0912 Temp 36.6 ?C (97.8 ?F) 09/06/24 0912 HR SpO2 76 09/06/24 0925 Resp 19 09/06/24 0925 SpO2 99 % 09/06/24 0925 Post Anesthesia Patient Status Patient Evaluation: PACU. PACU/ICU Patient Condition: stable. Anticipated Disposition: phase 2 then home. Neurological Status: aware and responsive. Pulmonary Status: breathing comfortably on room air Airway Control: returned to baseline unsupported. Cardiovascular Status: stable. Pain Management: clinically adequate - multimodal analgesia pain management approach Postoperative Hydration: acceptable. Intraoperative Events: no significant anesthesia events Recommendation: continue current plan of care. Anesthesia Observations No Documentation SIGNATURE: Ezio Bloom MD PATIENT NAME: Sherrell Genao DATE: September 06, 2024 TIME: 10:12 AM CSN: [id number] [facility] ANES PRE-OPon 09-06-2024 ANES PRE-OP HNO ID: [id number] Author: EZIO BLOOM MD Service: Anesthesiology Author Type: Anesthesiologist Type: Anesthesia Preprocedure Evaluation Filed: 09/06/2024 08:09 Note Text: ANESTHESIOLOGY DAY OF SURGERY NOTE : 1945 Procedure Information Date/Time: 09/06/24834 Procedures: PHACOEMULSIFICATION CATARACT IMPLANT INTRAOCULAR LENS W/O ENDOSCOPIC CYCLOPHOTOCOAGULATION (Right: Eye) OPHTHALMIC BIOMETRY BY PARTIAL COHERENCE INTERFEROMETRY W/INTRAOCULAR LENS POWER CALCULATION (Right: Eye) Location: [place] [address] / [facility] Surgeons: Johan Jimenez MD Estimated body mass index is 31.57 kg/m? as calculated from the following: Height as of this encounter: 177.8 cm (5' 10). Weight as of this encounter: 99.8 kg (220 lb). Most recent hematocrit and potassium results: No results found for this basename: HCT,HEMATOCRIT,K,POTASSIU M Relevant Problems CARDIO (+) Bilateral carotid artery stenosis (+) Hypertension (+) Nonrheumatic mitral valve regurgitation (+) Pulmonary arterial hypertension (HCC) (+) Varicose veins of lower extremity ENDO (+) Type 2 diabetes mellitus without retinopathy (HCC) -RENAL (+) Chronic kidney disease (+) Malignant neoplasm of left kidney (HCC) I - PHYSICAL EVALUATION AIRWAY Patient intubated: No. Tracheostomy tube not present Mallampati: II. TM distance: >3 FB. Neck ROM: full ROM without neurological symptoms. Mouth opening: adequate. DENTAL Dental findings: poor dentition. Additional exam findings: no II - ANESTHESIA PLAN ASA Score: 3 Anesthetic Plan: MAC NPO Status: adequate Beta Ken Monitoring Plan Monitoring plan: standard ASA. Post Procedure Analgesic Plan Postoperative analgesic plan: parenteral or oral opioids and multimodal analgesia. Informed Consent Anesthetic risks, benefits, alternatives, personnel and consent discussed: yes. Patient / Responsible Green Party agrees to proceed: yes Patient / Surrogate agrees to blood products: blood products not planned Significant changes in the patient condition since the History and Physical, not otherwise documented in primary service progress note: no. Vitals Value Taken Time BP 162/91 09/06/24 0738 Pulse 70 09/06/24737 Resp 20 09/06/24737 Temp 36.3 ?C (97.3 ?F) 09/06/24737 SpO2 97 % 09/06/24737 Facility-Administered Medications as of 09/06/2024 Medication Dose Route Frequency - [COMPLETED] cyclopentolate 1%-tropicamide 1%-PHENYLephrine 2.5% ophthalmic drops 1 Drop RIGHT EYE q 3 min Outpatient Medications as of 09/06/2024 Medication Sig - carvedilol (COREG) 12.5 mg tablet TAKE 1 TABLET BY MOUTH TWICE A DAY WITH MEAL/FOOD - FARXIGA 10 mg tablet Take 1 tablet by mouth every afternoon. - glimepiride (AMARYL) 1 mg tablet 4 mg. - furosemide (LASIX) 40 mg tablet Take 1 tablet by mouth once daily. - losartan (COZAAR) 25 mg tablet Take 1 tablet by mouth once daily. - SIMVASTATIN ORAL Take 10 mg by mouth once daily. - dulaglutide (TRULICITY) 0.75 mg / 0.5 ml subcutaneous pen injector Inject subcutaneously. - vit C,N-Hs-jdgxj-lutein-zeaxa n (PRESERVISION AREDS-2) [id number] ku-ouoq-lj-mg cap Take 1 capsule by mouth twice daily. I have interviewed and examined the patient. I have reviewed the medical record and/or the pre-anesthesia evaluation, pertinent labs, and test results. This contains updated information obtained within 48 hours of Surgery/Procedure. SIGNATURE: Ezio Bloom MD PATIENT NAME: Sherrell Genao DATE: September 06, 2024 TIME: 8:09 AM CSN: [id number] [facility] OPERATIVE NOon 09-06-2024 OPERATIVE NO HNO ID: [id number] Author: JOHAN JIMENEZ MD Service: Ophthalmology Author Type: Physician Type: Operative Report Filed: 09/06/2024 09:11 Note Text: OPERATIVE/PROCEDURE REPORT OPHTHAMOLOGY LOG ID: [id number] SURGERY/PROCEDURE DATE: 09/06/2024 INCISION/PROCEDURE START TIME: 8:52 AM INCISION CLOSE/PROCEDURE END TIME: 9:08 AM SURGEON(S)/PROCEDURALIST( S) AND CASING FLUSHER(S): Surgeons and Role: * Johan Jimenez MD - Primary PROCEDURE(S): Procedure(s) (LRB): PHACOEMULSIFICATION CATARACT IMPLANT INTRAOCULAR LENS W/O ENDOSCOPIC CYCLOPHOTOCOAGULATION (Right) OPHTHALMIC BIOMETRY BY PARTIAL COHERENCE INTERFEROMETRY W/INTRAOCULAR LENS POWER CALCULATION (Right) PREOPERATIVE DIAGNOSIS: Combined form of age-related cataract, Right eye POST-OP/POST-PROCEDURE DIAGNOSIS: Same as Preop OPERATIVE INDICATIONS: Blurred vision affecting activities of daily living (ADLs) ANESTHESIA: Monitored Anesthesia Care PROCEDURE DETAILS: The patient was transferred to the operating room where the eye was prepared and draped in sterile fashion. An eyelid speculum was placed and a paracentesis was performed. Preservative-free lidocaine 1% and viscoelastic were injected into the anterior chamber. A keratome was used to perform a clear corneal incision. Capsulorrhexis and hydrodissection were performed. The lens nucleus was removed with the phacoemulsification instrument. The residual cortex was removed with the irrigation/aspiration instrument. The capsular bag was filled with viscoelastic, and the above-noted intraocular lens was inserted into the capsular bag. The residual viscoelastic was removed with the irrigation/aspiration instrument. The anterior chamber was reformed with balanced salt solution and the corneal wounds were hydrated. A water-tight corneal closure was achieved. No suture(s) were placed in the wound. Intracameral injection of antibiotic was performed. Topical steroid medication was applied to the operated eye and it was covered with a protective shield. The patient was transferred to the recovery room in stable condition. I have reviewed the images and report from the Ophthalmic Biometry September 06, 2024 to determine the Intraocular lens Power Calculation for the IOL lens implant. I have interpreted and agree with the calculation of the IOL as listed below. ESTIMATED BLOOD LOSS: Minimal unless noted here. SPECIMENS: * No specimens in log * IMPLANTABLE DEVICES: Implant Name Type Inv. Item Serial No. Soa Integration Developer Lot No. LRB No. Used Action Model No. CCA0T0.210 [facility] [employer] - [id number] Intraocular Lens CCA0T0.210 [facility] [employer] [id number] [employer] Right 1 Implanted CCA0T0.210 Ocular Co-Morbidities: Yes Intra-operative Complications None I/primary surgeon/proceduralist performed the entire procedure. SIGNATURE: Johan Jimenez MD PATIENT NAME: Sherrell Genao DATE: September 06, 2024 TIME: 9:10 AM PAGER/CONTACT #: [phone] [facility] 09-02-2024 CNPN Telephone (OPHTSK) ----- SHERRELL GENAO ([id number]) 1945 M Date Time Provider Department 09/02/24 JOHAN JIMENEZ OPHRAINE During your visit today, we recorded the following information about you: Shane Harden 09/02/2024 1:57 PM Signed Patient needs surgical drops sent to pharmacy for 09/06/24 sx: Moxifloxacin Ketorolac Prednisolone To: E- [id number] [place] [address] - [address] [facility] [phone] Pharmacy canceled order on 08/25/24 Called to inform the patient to arrive at [address] [place] [address] at 7:20AM for 09/06/24 surgery with Johan Jimenez MD. Explained that patient is not to arrive any earlier. Also reminded patient to refrain from eating or drinking for 8 hours prior to arrival for surgery, and to start eye drops in the right eye on 09/04. Informed that [employer] does not contact them with the arrival time for surgery. If they receive a message from [employer] to confirm an appointment, they are to make sure of the date for the appointment. Geetha aFrris RN 09/02/2024 2:35 PM Signed Requested prescription pended to Dr. Jimenez in a refill encounter for approval. Geetha Farris RN September 02, 2024 2:35 PM Allergies As of Date: 09/02/2024 (No Known Allergies) Date Reviewed: 08/25/2024 Reviewed by: Jackelin Hassan APRN.FILTERING MACHINE TENDER HELPER - Fully Assessed Reason for Visit: Appointment [186] Cmt: Surgery Arrival Prescriptions as of 09/07/2024 - moxifloxacin (VIGAMOX) 0.5 % ophthalmic solution Use 1 Drop in the right eye four times daily. Start drops 2 (two) days prior to your scheduled surgery date 4 four times a day . Use one drop the morning of surgery. Restart following surgery as per instructions given - keTORolac (ACULAR) 0.5 % ophthalmic solution Use 1 Drop in the right eye four times daily. Start drops 2 (two) days prior to your scheduled surgery date 4 four times a day . Use one drop the morning of surgery. Restart following surgery as per instructions given - prednisoLONE acetate (PRED FORTE) 1 % ophthalmic suspension Use 1 Drop in the right eye four times daily. Start drops 2 (two) days prior to your scheduled surgery date 4 four times a day . Use one drop the morning of surgery. Restart following surgery as per instructions given - acetaminophen (TYLENOL EXTRA STRENGTH ORAL) Take by mouth. - FARXIGA 10 mg tablet Take 1 tablet by mouth every afternoon. - glimepiride (AMARYL) 1 mg tablet 4 mg. - carvedilol (COREG) 12.5 mg tablet TAKE 1 TABLET BY MOUTH TWICE A DAY WITH MEAL/FOOD - furosemide (LASIX) 40 mg tablet Take 1 tablet by mouth once daily. - losartan (COZAAR) 25 mg tablet Take 1 tablet by mouth once daily. - SIMVASTATIN ORAL Take 10 mg by mouth once daily. - dulaglutide (TRULICITY) 0.75 mg / 0.5 ml subcutaneous pen injector Inject subcutaneously. - vit C,M-Mh-rsadw-lutein-zeaxa n (PRESERVISION AREDS-2) 187-382-78-1 zk-xvkg-gw-mg cap Take 1 capsule by mouth twice daily. 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/11/2018 Type 2 diabetes mellitus without retinopathy (H*08/11/2018 Bilateral carotid artery stenosis [I65.23] 08/25/2024 Chronic combined systolic and diastolic heart f*06/23/2024 Dyslipidemia [E78.5] 09/12/2023 Hearing loss [H91.90] 08/25/2024 Hypertension [I10] 11/28/2023 Prostate cancer (HCC) [C61] 08/25/2024 Implantable cardioverter-defibrillato r (ICD) in*08/24/2020 Low platelet count (HCC) [D69.6] 08/25/2024 Malignant neoplasm of left kidney (HCC) [C64.2] 08/25/2024 Nonrheumatic mitral valve regurgitation [I34.0] 08/25/2024 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 Author Type: Nurse Practitioner Type: H&P Filed: 08/25/2024 09:30 Note Text: [facility] HISTORY AND PHYSICAL EXAMINATION SERVICE DATE: 08/25/2024 SERVICE TIME: 9:29 AM PRIMARY CARE PHYSICIAN: Shane Schreiber MD Assessment Patient has the following medical conditions which may affect tammy-operative course: Type 2 diabetes mellitus without retinopathy (HCC) Assessment: controlled with weekly injectable, oral agents, recent labs requested from [facility] BMI 31.0-31.9,adult Assessment: Body mass index is 31.57 kg/m?. Chronic combined systolic and diastolic heart failure (HCC) Assessment: controlled on rx, following Antoine, Dr. Hilliard, records requested Hypertension Assessment: controlled on rx Last 14 BP Last 14 Encounter BP Readings: Date: BP: 08/25/2024 108/70 Implantable cardioverter-defibrillato r (ICD) in situ Assessment: following cardiology, records requested Nonrheumatic mitral valve regurgitation Assessment: per [facility], records requested Pulmonary arterial hypertension (HCC) Assessment: per [facility], records requested Hearing loss Assessment: hearing aides Chronic kidney disease Assessment: recent labs requested Malignant neoplasm of left kidney (HCC) Assessment: s/p left nephrectomy Prostate cancer (HCC) Assessment: following [facility], hx XRT and hormone therapy, records requested Dyslipidemia Assessment: c/w statin Bilateral carotid artery stenosis Assessment: chronic, stable, no surgical interventions, following cardiology, records requested Low platelet count (HCC) Assessment: per [facility], recent labs requested Perez Activity Status Index: METS: Climb a flight of stairs or walk up a hill (5.50 METs) DASI Score: 5.5 Patient denies any chest pain or undue shortness of breath with the above physical activity. Clinical Frailty Scale: 1. Very fit STOP-Bang Score: Male patient Denies snoring loudly Denies feeling tired, fatigued, or sleepy during the daytime Has not been observed to stop breathing or choking/gasping during sleep Denies having high blood pressure BMI less than or equal to 35 kg/m2 Patient 50 years old or younger Does not have a large neck STOP-Bang Score: 1 [id number] Score: Age: >=75 Sex: male CHF history: Yes Hypertension history: Yes Stroke/TIA/thromboembolis m history: No Vascular disease history: Yes Diabetes history: Yes [id number] Score: 6 ARISCAT Score: Age: 51-80 Preoperative SpO2: 91-95% Respiratory infection in the last month: No Preoperative anemia: No Surgical incision: peripheral Duration of surgery: <2 hrs Emergency procedure: No ARISCAT Score: 11 ANESTHESIA FINDINGS: Intubation History: No history of difficult intubation Significant Anesthesia Considerations: none Airway History: No history of difficult airway I - PHYSICAL EVALUATION AIRWAY Patient intubated: No. Tracheostomy tube not present Mallampati: III. TM distance: >3 FB. Neck ROM: full ROM without neurological symptoms. Mouth opening: adequate. Short neck: no. Thick neck: yes Márquez present: no Lip Bite Test: I Microretrognathia/Microna gthia/Recessed Chin: No DENTAL Dental findings: teeth intact. Additional comments: +crowns/back. II - ANESTHESIA PLAN Anesthetic Plan: other Beta Ken Monitoring Plan Post Procedure Analgesic Plan Prepared for Surgery: optimally prepared for surgery. CONSULTS: Patient does not require consults for optimization at this time Planned Anesthetic: other anesthesia choice The Following Tests/Procedures Have Been Initiated: Orders Placed This Encounter acetaminophen (TYLENOL EXTRA STRENGTH ORAL) Sig: Take by mouth. REASON FOR VISIT: Sherrell Genao is a 79 year old male who is scheduled for Procedure(s): PHACOEMULSIFICATION CATARACT IMPLANT INTRAOCULAR LENS W/O ENDOSCOPIC CYCLOPHOTOCOAGULATION (Right) OPHTHALMIC BIOMETRY BY PARTIAL COHERENCE INTERFEROMETRY W/INTRAOCULAR LENS POWER CALCULATION (Right) at the request of Dr. Johan Jimenez for consultation. My final recommendation will be communicated back to the requesting physician by way of shared medical record or letter. Subjective The patient has the following: COVID-19 Immunization Status Upcoming Covid-19 Vaccine () Next due on 11/23/2024 05/26/2024 Imm Admin: COVID-19 vaccine, age 12+ yr (MODERNA) 04/18/2023 Imm Admin: COVID-19 vaccine, age 12+ yr (MODERNA) 04/04/2022 Imm Admin: COVID-19 vaccine, age 12+ yr, bivalent (MODERNA) Only the first 3 history entries have been loaded, but more history exists. CHIEF COMPLAINT: Pre-op exam HPI: Sherrell Genao is a 79 year old seen for PAC due to scheduled above surgery because of cataracts. 07/21/2024, Dr. Johan Jimenez 5. Combined forms of age-related cataract of both eyes Cataract Presurgical (more content not included)... Normal [facility] 12 Lead EKG performed by [facility] on 08-23-2024 12 Lead EKG performed by [facility] [address] [place] [address] 12 Lead EKG performed by [facility] 08/23/24 0850 MR#: [id number] Acct: [id number] Name: SHERRELL GENAO Rep #: [id number] : 1945 79 From: Lorenza Chaudhry Attending Dr: AMBER Kevin Status: DEP AMB Ordering Dr: Lorenza Bingham Date: 08/14 Location: [facility] Sex: M C Admitted: BMS/12 Lead EKG performed by [facility] ECG Report Interpretation -Sinus Rhythm -Old anteroseptal infarct. ABNORMAL Electronically signed on 08/25/2024 at 09:41 by Dante Hilliardwood Software Version [id number] 08/25/24 0944 Date Lorenza CLARK CC: Dr. Shane Schreiber MD Date Dictated: 08/23/2450 Date Transcribed: 08/23/24849 Classified Copy Control Clerk: NICK Signed Normal [facility] Cardiology Visit Reporton Cardiology Visit Report [facility] [address] [place] [address] OFFICE VISIT Date of Service: 08/23/24 MR#: [id number] Acct: [id number] Name: SHERRELL GENAO Rep #: [id number] : 1945 Provider: AMBER Limon Age/Sex: 79/M Location: [facility] Status: Signed HPI HPI History of Present Illness Details: Sherrell Genao is a 79-year-old man with a history of non-ischemic cardiomyopathy, hypertension, hyperlipidemia, chronic kidney disease, history of left nephrectomy, prostate carcinoma and bladder carcinoma. An echocardiogram performed demonstrated global reduction in left ventricular ejection fraction. He has been evaluated by noninvasive means and was noted to have no ischemia and therefore presumed to have a nonischemic cardiomyopathy. He did have a CAT scan of his chest in July 2019 which demonstrated atherosclerotic calcification of the arch and calcifications of the coronary artery also noted. He was put on Lasix as well as an ARB. He also had his beta-ken titrated. He does have renal insufficiency and has a hx of renal carcinoma with removal of his left kidney. He also has a hx of prostrate cancer and is established with Dr. Gtz. Device evaluation from 08/03/2024 showed 0 nonsustained ventricular tachycardia episodes and heart logic index increased at 23. On 07/14/2024 his value was noted to be 10. On 06/17/2024 he was contacted and asked to increase his Lasix to 60 mg p.o. twice daily and then return to Lasix 40 mg p.o. twice daily. Pt notes that prior to us calling him, he was feeling ill a few weeks prior. He had a viral infection. When we called him, he did not feel like he had SOB. He feels that he is now at his baseline. He does not have any chest pain. He does not have any palpitations. He does not have any edema. 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 Required: No Is patient in pain?: No Allergies No Known Allergies Allergy (Verified 08/23/24 08:45) Medications ???Medication ???Instructions ???Recorded ???Confirmed ???Type vitamins A,C,G-mrjz-yprcid 4,296 1 cap PO BID supplement 03/24/19 0 08/23/24 History mcg-226 mg-90 mg capsule (PreserVision AREDS) dapagliflozin propanediol 10 mg 10 mg PO DAILY #30 tabs 08/20/23 0 08/23/24 Rx tablet (Farxiga) carvedilol 25 mg tablet 25 mg PO BID blood pressure #180 0 12/10/23 08/23/24 Rx tabs losartan 25 mg tablet 25 mg PO DAILY #90 tabs 01/19/24 0 08/23/24 Rx glimepiride 4 mg tablet 4 mg PO QAM #90 tabs 03/01/2408/14 Rx hydrocortisone 2.5 % topical cream 1 applic topical BID PRN rash #4 54 03/01/24 08/23/24 Rx grams simvastatin 20 mg tablet 20 mg PO QHS #90 tabs 04/01/2405/07 Rx dulaglutide 4.5 mg/0.5 mL 4.5 mg (0.5 mL) subcut QWEEK 3 05/0708/23/24 Rx subcutaneous pen injector months #6.5 mL (Trulicity) furosemide 40 mg tablet 40 mg PO BID PRN SOB #180 tabs 08/23/24 Rx Have you fallen in the past year?: No PFSH Medical History Diarrhea Chronic fatigue Screening for thyroid disorder Swallowing difficulty Orthopnea Thrombocytopenia Obesity Pleural effusion on left Dilated cardiomyopathy Chronic combined systolic and diastolic CHF (congestive heart failure) Chronic kidney disease (CKD) Essential (primary) hypertension Renal carcinoma Type 2 diabetes mellitus History of prostate cancer Urinary frequency Decreased hearing Vision loss Bladder cancer Vascular disease Prostate disease Kidney disease Hyperlipidemia Gout Bone fracture Arthritis Seasonal allergies Surgical History 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) H/O transurethral destruction of bladder lesion History of nephrectomy, left Varicose veins of both lower extremities Hx of cholecystectomy Family History Father Hypertension Melanoma Social History Smoking Status: Former smoker quit date: 07/14/89 Tobacco: How many years used: 15 how long ago did patient quit smokin years ago alcohol intake: never substance use type: does not use caffeine: Yes Type: coffee Number of servings: 3 what type of physical activity do you participate in: walking frequency: daily ROS Const Const: Negative for fatigue, weakness, headache(s), frequen (more content not included)... Normal [facility] Basic Metabolic Profile (BMP )on 08-16-2024 BUN/CRE 20.1 RATIO High 05-02 [facility] Comment on above: Performed By: #### L 500.2500, L100.0500, L501.0900 ####[facility] [address] [place], [address] CA,Total 9.5 mg/dL Normal 8.5-10.1 [facility] Comment on above: Performed By: #### L 500.2500, L100.0500, L501.0900 ####[facility] [address] [place], [address] Chloride [Moles/Vol] 105 mmol/L Normal 98-107 [facility] Comment on above: Performed By: #### L 500.2500, L100.0500, L501.0900 ####[facility] [address] [place], [address] CO2 [Moles/Vol] 26.0 mmol/L Normal 21.0-32.0 [facility] Comment on above: Performed By: #### L 500.2500, L100.0500, L501.0900 ####[facility] [address] [place], [address] Creatinine [Mass/Vol] 2.54 mg/dL High 0.70-1.30 [facility] Comment on above: Result Comment: The validity of the calculated GFR GFRAA in patients over 70 years has not been determined. Clinical correlation is essential. Performed By: #### L 500.2500, L100.0500, L501.0900 ####[facility] [address] [place], [address] EST GFR - AA 32 mL/min Low >60 [facility] Comment on above: Result Comment: Afri can Italian GFR Calc Performed By: #### L 500.2500, L100.0500, L501.0900 ####[facility] [address] [place], [address] GAP 8 Normal 5-15 [facility] Comment on above: Performed By: #### L 500.2500, L100.0500, L501.0900 ####[facility] [address] [place], [address] GFR/1.73 sq M.predicted among non-blacks MDRD (S/P/Bld) [Vol rate/Area] 26 mL/min/{1.73_m2} Low >60 [facility] Comment on above: Result Comment: Non- GFR Calc Performed By: #### L 500.2500, L100.0500, L501.0900 ####[facility] [address] [place], [address] Glucose [Mass/Vol] 203 mg/dL High 74-106 [facility] Comment on above: Result Comment: Gluc ose result greater than or equal to 200 mg/dL suggests DIABETES MELLITUS per A.D.A. criteria. Performed By: #### L 500.2500, L100.0500, L501.0900 ####[facility] [address] [place], [address] Potassium [Moles/Vol] 4.4 mmol/L Normal 3.5-5.1 [facility] Comment on above: Performed By: #### L 500.2500, L100.0500, L501.0900 ####[facility] [address] [place], [address] Sodium [Moles/Vol] 139 mmol/L Normal 136-145 [facility] Comment on above: Performed By: #### L 500.2500, L100.0500, L501.0900 ####[facility] [address] [place], [address] Urea nitrogen [Mass/Vol] 51 mg/dL High 7-18 [facility] Comment on above: Performed By: #### L 500.2500, L100.0500, L501.0900 ####[facility] [address] [place], [address] Blood urea nitrogen (BUN)/cr eatinine ratioOrdered By: Marj Poe on 08-16-2024 Urea nitrogen/Creatinine [Mass ratio] 20.1 mg/mg High 10-20 [facility] CBC-Complete Blood Cnt No Di ffon 08-16-2024 Erythrocyte distribution width (RBC) [Ratio] 15.0 % High 11.6-14.6 [facility] Comment on above: Performed By: #### L 500.2500, L100.0500, L501.0900 ####[facility] [address] [place], [address] Hematocrit (Bld) [Volume fraction] 46.3 % Normal 40-54 [facility] Comment on above: Performed By: #### L 500.2500, L100.0500, L501.0900 ####[facility] [address] [place], [address] Hemoglobin (Bld) [Mass/Vol] 14.4 g/dL Normal 13.0-16.5 [facility] Comment on above: Performed By: #### L 500.2500, L100.0500, L501.0900 ####[facility] [address] [place], [address] MCH (RBC) [Entitic mass] 26.9 pg Low 27.0-32.0 [facility] Comment on above: Performed By: #### L 500.2500, L100.0500, L501.0900 ####[facility] [address] [place], [address] MCHC (RBC) [Mass/Vol] 31.1 g/dL Low 32-36 [facility] Comment on above: Performed By: #### L 500.2500, L100.0500, L501.0900 ####[facility] [address] [place], [address] MCV (RBC) [Entitic vol] 86.5 fL Normal 80-94 [facility] Comment on above: Performed By: #### L 500.2500, L100.0500, L501.0900 ####[facility] [address] [place], [address] Platelet mean volume (Bld) [Entitic vol] 11.3 fL Normal 6.2-12.0 [facility] Comment on above: Performed By: #### L 500.2500, L100.0500, L501.0900 ####[facility] [address] [place], [address] Platelets (Bld) [#/Vol] 170 10*3/uL Normal 150-450 [facility] Comment on above: Performed By: #### L 500.2500, L100.0500, L501.0900 ####[facility] [address] [place], [address] RBC (Bld) [#/Vol] 5.35 10*6/uL Normal 4.6-6.2 [facility] Comment on above: Performed By: #### L 500.2500, L100.0500, L501.0900 ####[facility] [address] [place], [address] RDW SD 47.3 fl High 35.1-43.9 [facility] Comment on above: Performed By: #### L 500.2500, L100.0500, L501.0900 ####[facility] [address] [place], [address] WBC (Bld) [#/Vol] 6.4 10*3/uL Normal 4.4-11.0 [facility] Comment on above: Performed By: #### L 500.2500, L100.0500, L501.0900 ####[facility] [address] [place], [address] Carbon dioxide measurementOr dered By: Marj Poe on 08-16-2024 CO2 [Moles/Vol] 26.0 mmol/L 21.0-32.0 [facility] Chloride measurementOrdered By: Marj Poe on 08-16-2024 Chloride [Moles/Vol] 105 mmol/L 98-107 [facility] Erythrocyte distribution wid th ratioOrdered By: Marj Poe on 08-16-2024 Erythrocyte distribution width (RBC) [Ratio] 15.0 % High 11.6-14.6 [facility] Erythrocyte distribution wid th standard deviationOrdered By: Marj Poe on 08-16-2024 Erythrocyte distribution width (RBC) [Entitic vol] 47.3 fL High 35.1-43.9 [facility] Estimated glomerular filtrat ion rate (GFR) AmericanOrdered By: Marj Poe on 08-16-2024 Estimated GFR (MDRD) Amer 32 mL/min Low >60 [facility] Comment on above: GFR Calc Glomerular filtration rate ( GFR) estimationOrdered By: Marj Poe on 08-16-2024 Estimated GFR (MDRD) Non-Af Amer 26 mL/min Low >60 [facility] Comment on above: Non- GFR Calc Glucose measurementOrdered B y: Marj Poe on 08-16-2024 Glucose [Mass/Vol] 203 mg/dL High 74-106 [facility] Comment on above: Glucose result great er than or equal to 200 mg/dLsuggests DIABETES MELLITUS per A.D.A. criteria. Hematocrit Auto (Bld) [Volum e fraction]Ordered By: Marj Poe on 08-16-2024 Hematocrit (Bld) [Volume fraction] 46.3 % 40-54 [facility] Hemoglobin measurementOrdere d By: Marj Poe on 08-16-2024 Hemoglobin (Bld) [Mass/Vol] 14.4 g/dL 13.0-16.5 [facility] MCV (mean corpuscular volume ) determinationOrdered By: Marj Poe on 08-16-2024 MCV (RBC) [Entitic vol] 86.5 fL 80-94 [facility] Mean corpuscular hemoglobin (MCH) determinationOrdered By: Marj Poe on 08-16-2024 MCH (RBC) [Entitic mass] 26.9 pg Low 27.0-32.0 [facility] Mean corpuscular hemoglobin concentration (MCHC) determinationOrdered By: Marj Poe on 08-16-2024 MCHC (RBC) [Mass/Vol] 31.1 g/dL Low 32-36 [facility] Mean platelet volume determi nationOrdered By: Marj Poe on 08-16-2024 Platelet mean volume (Bld) [Entitic vol] 11.3 fL 6.2-12.0 [facility] Platelet countOrdered By: Deejay Poe on 08-16-2024 Platelets (Bld) [#/Vol] 170 10*3/uL 150-450 [facility] Potassium measurementOrdered By: Marj Poe on 08-16-2024 Potassium [Moles/Vol] 4.4 mmol/L 3.5-5.1 [facility] Protein+Creatinine Ratio,Uri neon 08-16-2024 PROT:CRE RATIO 152 mg/g CRE Normal 0-200 [facility] Comment on above: Performed By: #### L 500.2500, L100.0500, L501.0900 ####[facility] [address] [place], [address] Protein (U) [Mass/Vol] 24.7 mg/dL High <11.9 [facility] Comment on above: Performed By: #### L 500.2500, L100.0500, L501.0900 ####[facility] [address] [place], [address] UR CREAT 163.00 mg/dL Normal NO RANGE EST. [facility] Comment on above: Performed By: #### L 500.2500, L100.0500, L501.0900 ####[facility] [address] [place], [address] Protein/Creatinine (U) [Mass ratio]Ordered By: Marj Poe on 08-16-2024 Urine Protein/Creatinine Ratio 152 mg/g CRE 0-200 [facility] RBC Auto (Bld) [#/Vol]Ordere d By: Marj Poe on 08-16-2024 RBC (Bld) [#/Vol] 5.35 10*6/uL 4.6-6.2 [facility] Random urine protein measure mentOrdered By: Marj Poe on 08-16-2024 Protein (U) [Mass/Vol] 24.7 mg/dL High 0.0-11.8 [facility] Serum anion gap measurementO rdered By: Marj Poe on 08-16-2024 Anion gap [Moles/Vol] 8 mmol/L 5-15 [facility] Serum or plasma calcium cecily urement (mass/volume)Ordered By: Marj Poe on 08-16-2024 Calcium [Mass/Vol] 9.5 mg/dL 8.5-10.1 [facility] Serum or plasma creatinine m easurement (mass/volume)Ordered By: Marj Poe on 08-16-2024 Creatinine [Mass/Vol] 2.54 mg/dL High 0.70-1.30 [facility] Comment on above: The validity of the calculated GFR & GFRAA in patients over 70 years has not been determined. Clinical correlation is essential. Serum or plasma urea nitroge n measurement (mass/volume)Ordered By: Marj Poe on 08-16-2024 Urea nitrogen [Mass/Vol] 51 mg/dL High 7-18 [facility] Sodium levelOrdered By: Arvin Poe on 08-16-2024 Sodium [Moles/Vol] 139 mmol/L 136-145 [facility] Urine creatinine measurement (mass/volume)Ordered By: Marj Poe on 08-16-2024 Creatinine (U) [Mass/Vol] 163.00 mg/dL NO RANGE EST. [facility] White blood cell (WBC) count Ordered By: Marj Poe on 08-16-2024 WBC (Bld) [#/Vol] 6.4 10*3/uL 4.4-11.0 [facility] CNCOon 08-10-2024 CNCO Letter Text Normal [facility] CORNEAL TOPOGRAPHY ATLAS OU (BOTH EYES)on 07-26-2024 [facility] IOL BIOMETRY W/ IOL CALC OU (BOTH EYES)on 07-26-2024 [facility] Basic Metabolic Profile (BMP )on 07-23-2024 BUN/CRE 14.5 RATIO Normal 10-20 [facility] Comment on above: Performed By: #### L 501.0900, L500.2500, L100.0500 ####[facility] [address] [place], [address] CA,Total 9.2 mg/dL Normal 8.5-10.1 [facility] Comment on above: Performed By: #### L 501.0900, L500.2500, L100.0500 ####[facility] [address] [place], [address] Chloride [Moles/Vol] 109 mmol/L High 98-107 [facility] [facility] Comment on above: Performed By: #### L 501.0900, L500.2500, L100.0500 ####[facility] [address] [place], [address] CO2 [Moles/Vol] 25.0 mmol/L Normal 21.0-32.0 [facility] Comment on above: Performed By: #### L 501.0900, L500.2500, L100.0500 ####[facility] [address] [place], [address] Creatinine [Mass/Vol] 2.14 mg/dL High 0.70-1.30 [facility] Comment on above: Result Comment: The validity of the calculated GFR GFRAA in patients over 70 years has not been determined. Clinical correlation is essential. Performed By: #### L 501.0900, L500.2500, L100.0500 ####[facility] [address] [place], [address] EST GFR - AA 39 mL/min Low >60 [facility] Comment on above: Result Comment: Afri can Italian GFR Calc Performed By: #### L 501.0900, L500.2500, L100.0500 ####[facility] [address] [place], [address] GAP 5 Normal 5-15 [facility] Comment on above: Performed By: #### L 501.0900, L500.2500, L100.0500 ####[facility] [address] [place], [address] GFR/1.73 sq M.predicted among non-blacks MDRD (S/P/Bld) [Vol rate/Area] 32 mL/min/{1.73_m2} Low >60 [facility] Comment on above: Result Comment: Non- GFR Calc Performed By: #### L 501.0900, L500.2500, L100.0500 ####[facility] [address] [place], [address] Glucose [Mass/Vol] 99 mg/dL Normal 74-106 [facility] Comment on above: Performed By: #### L 501.0900, L500.2500, L100.0500 ####[facility] [address] [place], [address] Potassium [Moles/Vol] 4.3 mmol/L Normal 3.5-5.1 [facility] Comment on above: Performed By: #### L 501.0900, L500.2500, L100.0500 ####[facility] [address] [place], [address] Sodium [Moles/Vol] 138 mmol/L Normal 136-145 [facility] Comment on above: Performed By: #### L 501.0900, L500.2500, L100.0500 ####[facility] [address] [place], [address] Urea nitrogen [Mass/Vol] 31 mg/dL High 7-18 [facility] Comment on above: Performed By: #### L 501.0900, L500.2500, L100.0500 ####[facility] [address] [place], [address] Blood urea nitrogen (BUN)/cr eatinine ratioOrdered By: Marj Poe on 07-23-2024 Urea nitrogen/Creatinine [Mass ratio] 14.5 mg/mg 10-20 [facility] CBC-Complete Blood Cnt No Di ffon 07-23-2024 Erythrocyte distribution width (RBC) [Ratio] 15.4 % High 11.6-14.6 [facility] Comment on above: Performed By: #### L 501.0900, L500.2500, L100.0500 #### [facility] [address] [place], [address] Hematocrit (Bld) [Volume fraction] 49.3 % Normal 40-54 [facility] Comment on above: Performed By: #### L 501.0900, L500.2500, L100.0500 #### [facility] [address] [place], [address] Hemoglobin (Bld) [Mass/Vol] 15.4 g/dL Normal 13.0-16.5 [facility] Comment on above: Performed By: #### L 501.0900, L500.2500, L100.0500 #### [facility] [address] [place], [address] MCH (RBC) [Entitic mass] 27.5 pg Normal 27.0-32.0 [facility] Comment on above: Performed By: #### L 501.0900, L500.2500, L100.0500 #### [facility] [address] [place], [address] MCHC (RBC) [Mass/Vol] 31.2 g/dL Low 32-36 [facility] Comment on above: Performed By: #### L 501.0900, L500.2500, L100.0500 #### [facility] [address] [place] [facility] [place], [address] MCV (RBC) [Entitic vol] 87.9 fL Normal 80-94 [facility] Comment on above: Performed By: #### L 501.0900, L500.2500, L100.0500 #### [facility] [address] [place], [address] Platelet mean volume (Bld) [Entitic vol] 11.8 fL Normal 6.2-12.0 [facility] Comment on above: Performed By: #### L 501.0900, L500.2500, L100.0500 #### [facility] [address] [place], [address] Platelets (Bld) [#/Vol] 147 10*3/uL Low 150-450 [facility] Comment on above: Performed By: #### L 501.0900, L500.2500, L100.0500 #### [facility] [address] [place], [address] RBC (Bld) [#/Vol] 5.61 10*6/uL Normal 4.6-6.2 [facility] Comment on above: Performed By: #### L 501.0900, L500.2500, L100.0500 #### [facility] [address] [place], [address] RDW SD 49.2 fl High 35.1-43.9 [facility] Comment on above: Performed By: #### L 501.0900, L500.2500, L100.0500 #### [facility] [address] [place], [address] WBC (Bld) [#/Vol] 6.6 10*3/uL Normal 4.4-11.0 [facility] Comment on above: Performed By: #### L 501.0900, L500.2500, L100.0500 #### [facility] [address] [place], [address] Carbon dioxide measurementOr dered By: Marj Poe on 07-23-2024 CO2 [Moles/Vol] 25.0 mmol/L 21.0-32.0 [facility] Chloride measurementOrdered By: Marj Poe on 07-23-2024 Chloride [Moles/Vol] 109 mmol/L High 98-107 [facility] Erythrocyte distribution wid th ratioOrdered By: Marj Poe on 07-23-2024 Erythrocyte distribution width (RBC) [Ratio] 15.4 % High 11.6-14.6 [facility] Erythrocyte distribution wid th standard deviationOrdered By: Marj Poe on 07-23-2024 Erythrocyte distribution width (RBC) [Entitic vol] 49.2 fL High 35.1-43.9 [facility] Estimated glomerular filtrat ion rate (GFR) AmericanOrdered By: Marj Poe on 07-23-2024 Estimated GFR (MDRD) Amer 39 mL/min Low >60 [facility] Comment on above: GFR Calc Glomerular filtration rate ( GFR) estimationOrdered By: Marj Poe on 07-23-2024 Estimated GFR (MDRD) Non-Af Amer 32 mL/min Low >60 [facility] Comment on above: Non- GFR Calc Glucose measurementOrdered B y: Marj Poe on 07-23-2024 Glucose [Mass/Vol] 99 mg/dL 74-106 [facility] Hematocrit Auto (Bld) [Volum e fraction]Ordered By: Marj Poe on 07-23-2024 Hematocrit (Bld) [Volume fraction] 49.3 % 40-54 [facility] Hemoglobin measurementOrdere d By: Marj Poe on 07-23-2024 Hemoglobin (Bld) [Mass/Vol] 15.4 g/dL 13.0-16.5 [facility] MCV (mean corpuscular volume ) determinationOrdered By: Marj Poe on 07-23-2024 MCV (RBC) [Entitic vol] 87.9 fL 80-94 [facility] Mean corpuscular hemoglobin (MCH) determinationOrdered By: Marj Poe on 07-23-2024 MCH (RBC) [Entitic mass] 27.5 pg 27.0-32.0 [facility] Mean corpuscular hemoglobin concentration (MCHC) determinationOrdered By: Marj Poe on 07-23-2024 MCHC (RBC) [Mass/Vol] 31.2 g/dL Low 32-36 [facility] Mean platelet volume determi nationOrdered By: Marj Poe on 07-23-2024 Platelet mean volume (Bld) [Entitic vol] 11.8 fL 6.2-12.0 [facility] Platelet countOrdered By: Deejay Poe on 07-23-2024 Platelets (Bld) [#/Vol] 147 10*3/uL Low 150-450 [facility] Potassium measurementOrdered By: Marj Poe on 07-23-2024 Potassium [Moles/Vol] 4.3 mmol/L 3.5-5.1 [facility] Protein+Creatinine Ratio,Uri neon 07-23-2024 PROT:CRE RATIO 486 mg/g CRE High 0-200 [facility] Comment on above: Performed By: #### L 501.0900, L500.2500, L100.0500 ####[facility] [address] [place], [address] Protein (U) [Mass/Vol] 85.0 mg/dL High <11.9 [facility] Comment on above: Performed By: #### L 501.0900, L500.2500, L100.0500 ####[facility] [address] [place], [address] UR CREAT 175.00 mg/dL Normal NO RANGE EST. [facility] Comment on above: Performed By: #### L 501.0900, L500.2500, L100.0500 ####[facility] [address] [place], [address] Protein/Creatinine (U) [Mass ratio]Ordered By: Marj Poe on 07-23-2024 Urine Protein/Creatinine Ratio 486 mg/g CRE High 0-200 [facility] RBC Auto (Bld) [#/Vol]Ordere d By: Marj Poe on 07-23-2024 RBC (Bld) [#/Vol] 5.61 10*6/uL 4.6-6.2 [facility] Random urine protein measure mentOrdered By: Marj Poe on 07-23-2024 Protein (U) [Mass/Vol] 85.0 mg/dL High 0.0-11.8 [facility] Serum anion gap measurementO rdered By: Marj Poe on 07-23-2024 Anion gap [Moles/Vol] 5 mmol/L 5-15 [facility] Serum or plasma calcium cecily urement (mass/volume)Ordered By: Marj Poe on 07-23-2024 Calcium [Mass/Vol] 9.2 mg/dL 8.5-10.1 [facility] Serum or plasma creatinine m easurement (mass/volume)Ordered By: Marj Poe on 07-23-2024 Creatinine [Mass/Vol] 2.14 mg/dL High 0.70-1.30 [facility] Comment on above: The validity of the calculated GFR & GFRAA in patients over 70 years has not been determined. Clinical correlation is essential. Serum or plasma urea nitroge n measurement (mass/volume)Ordered By: Marj Poe on 07-23-2024 Urea nitrogen [Mass/Vol] 31 mg/dL High 7-18 [facility] Sodium levelOrdered By: Arvin Poe on 07-23-2024 Sodium [Moles/Vol] 138 mmol/L 136-145 [facility] Urine creatinine measurement (mass/volume)Ordered By: Marj Poe on 07-23-2024 Creatinine (U) [Mass/Vol] 175.00 mg/dL NO RANGE EST. [facility] White blood cell (WBC) count Ordered By: Marj Poe on 07-23-2024 WBC (Bld) [#/Vol] 6.6 10*3/uL 4.4-11.0 [facility] No Panel Informationon 07-21 Radiology Study observation (narrative) [facility] Absolute neutrophil countOrd ered By: Shane Schreiber on 07-15-2024 Neutrophils (Bld) [#/Vol] 3.8 10*3/uL 2.0-7.7 [facility] Basic Metabolic Profile (BMP )on 07-15-2024 BUN/CRE 12.7 RATIO Normal 10-20 [facility] Comment on above: Performed By: #### L 500.2500, L100.0100 #### [facility] [address] [place], [address] CA,Total 9.6 mg/dL Normal 8.5-10.1 [facility] Comment on above: Performed By: #### L 500.2500, L100.0100 #### [facility] [address] [place], [address] Chloride [Moles/Vol] 110 mmol/L High 98-107 [facility] Comment on above: Performed By: #### L 500.2500, L100.0100 #### [facility] [address] [place], [address] CO2 [Moles/Vol] 26.0 mmol/L Normal 21.0-32.0 [facility] Comment on above: Performed By: #### L 500.2500, L100.0100 #### [facility] [address] [place], [address] Creatinine [Mass/Vol] 2.29 mg/dL High 0.70-1.30 [facility] Comment on above: Result Comment: The validity of the calculated GFR GFRAA in patients over 70 years has not been determined. Clinical correlation is essential. Performed By: #### L 500.2500, L100.0100 #### [facility] [address] [place], [address] EST GFR - AA 36 mL/min Low >60 [facility] Comment on above: Result Comment: Afri can Italian GFR Calc Performed By: #### L 500.2500, L100.0100 #### [facility] [address] [place], [address] GAP 3 Low 5-15 [facility] Comment on above: Performed By: #### L 500.2500, L100.0100 #### [facility] [address] [place], [address] GFR/1.73 sq M.predicted among non-blacks MDRD (S/P/Bld) [Vol rate/Area] 30 mL/min/{1.73_m2} Low >60 [facility] Comment on above: Result Comment: Non- GFR Calc Performed By: #### L 500.2500, L100.0100 #### [facility] [address] [place], [address] Glucose [Mass/Vol] 118 mg/dL High 74-106 [facility] Comment on above: Result Comment: Fast ing Glucose result from 100 to 125 mg/dL suggests IMPAIRED HOMEOSTASIS per A.D.A. criteria. Performed By: #### L 500.2500, L100.0100 #### [facility] [address] [place], [address] Potassium [Moles/Vol] 5.4 mmol/L High 3.5-5.1 [facility] Comment on above: Performed By: #### L 500.2500, L100.0100 #### [facility] [address] [place], [address] Sodium [Moles/Vol] 138 mmol/L Normal 136-145 [facility] Comment on above: Performed By: #### L 500.2500, L100.0100 #### [facility] [address] [place], [address] Urea nitrogen [Mass/Vol] 29 mg/dL High 7-18 [facility] Comment on above: Performed By: #### L 500.2500, L100.0100 #### [facility] [address] [place], [address] Basophil percentageOrdered B y: Shane Schreiber on 07-15-2024 Basophils/100 WBC (Bld) 1.0 % 0-1 [facility] Blood urea nitrogen (BUN)/cr eatinine ratioOrdered By: Shane Schreiber on 07-15-2024 Urea nitrogen/Creatinine [Mass ratio] 12.7 mg/mg 10-20 [facility] CBC W/Diff, Automatedon Absolute Lymph 1.49 X10 3/uL Normal 0.83-4.51 [facility] Comment on above: Performed By: #### L 500.2500, L100.0100 #### [facility] [address] [place], [address] Absolute Neut 3.8 X10 3/uL Normal 2.0-7.7 [facility] Comment on above: Performed By: #### L 500.2500, L100.0100 #### [facility] [address] [facility] [place], [address] Basophils/100 WBC (Bld) 1.0 % Normal 0-1 [facility] Comment on above: Performed By: #### L 500.2500, L100.0100 #### [facility] [address] [place], [address] Eosinophils/100 WBC (Bld) 4.0 % Normal 0-5 [facility] Comment on above: Performed By: #### L 500.2500, L100.0100 #### [facility] [address] [place], [address] Erythrocyte distribution width (RBC) [Ratio] 15.7 % High 11.6-14.6 [facility] Comment on above: Performed By: #### L 500.2500, L100.0100 #### [facility] [address] [place], [address] Hematocrit (Bld) [Volume fraction] 51.0 % Normal 40-54 [facility] Comment on above: Performed By: #### L 500.2500, L100.0100 #### [facility] [address] [place], [address] Hemoglobin (Bld) [Mass/Vol] 15.6 g/dL Normal 13.0-16.5 [facility] Comment on above: Performed By: #### L 500.2500, L100.0100 #### [facility] [address] [place], [address] IG% 0.300 Normal 0.0-0.9 [facility] Comment on above: Result Comment: IG% - Immature Granulocytes (promyelocytes, myelocytes and metamyelocytes) > 1% indicates that a LEFT SHIFT is Present. Performed By: #### L 500.2500, L100.0100 #### [facility] [address] [place], [address] Lymphocytes/100 WBC (Bld) 23.9 % Normal 19-41 [facility] Comment on above: Performed By: #### L 500.2500, L100.0100 #### [facility] [address] [place], [address] MCH (RBC) [Entitic mass] 27.0 pg Normal 27.0-32.0 [facility] Comment on above: Performed By: #### L 500.2500, L100.0100 #### [facility] [address] [place], [address] MCHC (RBC) [Mass/Vol] 30.6 g/dL Low 32-36 [facility] Comment on above: Performed By: #### L 500.2500, L100.0100 #### [facility] [address] [place], [address] MCV (RBC) [Entitic vol] 88.2 fL Normal 80-94 [facility] Comment on above: Performed By: #### L 500.2500, L100.0100 #### [facility] [address] [place], [address] Monocytes/100 WBC (Bld) 9.5 % Normal 0-10 [facility] Comment on above: Performed By: #### L 500.2500, L100.0100 #### [facility] [address] [place], [address] Neutrophils/100 WBC (Bld) 61.3 % Normal 47-70 [facility] Comment on above: Performed By: #### L 500.2500, L100.0100 #### [facility] [address] [place], [address] Nucleated RBC (Bld) [#/Vol] 0 10*3/uL Normal 0-5 [facility] Comment on above: Performed By: #### L 500.2500, L100.0100 #### [facility] [address] [place], [address] Platelet mean volume (Bld) [Entitic vol] 11.1 fL Normal 6.2-12.0 [facility] Comment on above: Performed By: #### L 500.2500, L100.0100 #### [facility] [address] [place], [address] Platelets (Bld) [#/Vol] 109 10*3/uL Low 150-450 [facility] Comment on above: Performed By: #### L 500.2500, L100.0100 #### [facility] [address] [place], [address] RBC (Bld) [#/Vol] 5.78 10*6/uL Normal 4.6-6.2 [facility] Comment on above: Performed By: #### L 500.2500, L100.0100 #### [facility] [address] [place], [address] RDW SD 50.5 fl High 35.1-43.9 [facility] Comment on above: Performed By: #### L 500.2500, L100.0100 #### [facility] [address] [place], [address] WBC (Bld) [#/Vol] 6.2 10*3/uL Normal 4.4-11.0 [facility] Comment on above: Performed By: #### L 500.2500, L100.0100 #### [facility] [address] [place], [address] Carbon dioxide measurementOr dered By: Shane Schreiber on 07-15-2024 CO2 [Moles/Vol] 26.0 mmol/L 21.0-32.0 [facility] Chloride measurementOrdered By: Shane Schreiber on 07-15-2024 Chloride [Moles/Vol] 110 mmol/L High 98-107 [facility] Eosinophil percentageOrdered By: Shane Schreiber on 07-15-2024 Eosinophils/100 WBC (Bld) 4.0 % 0-5 [facility] Erythrocyte distribution wid th ratioOrdered By: Shane Schreiber on 07-15-2024 Erythrocyte distribution width (RBC) [Ratio] 15.7 % High 11.6-14.6 [facility] Erythrocyte distribution wid th standard deviationOrdered By: Shane Schreiber on 07-15-2024 Erythrocyte distribution width (RBC) [Entitic vol] 50.5 fL High 35.1-43.9 [facility] Estimated glomerular filtrat ion rate (GFR) AmericanOrdered By: Shane Schreiber on 07-15-2024 Estimated GFR (MDRD) Amer 36 mL/min Low >60 [facility] Comment on above: GFR Calc Glomerular filtration rate ( GFR) estimationOrdered By: Shane Schreiber on 07-15-2024 Estimated GFR (MDRD) Non-Af Amer 30 mL/min Low >60 [facility] Comment on above: Non- GFR Calc Glucose measurementOrdered B y: Shane Schreiber on 07-15-2024 Glucose [Mass/Vol] 118 mg/dL High 74-106 [facility] Comment on above: Fasting Glucose resu lt from 100 to 125 mg/dL suggests IMPAIRED HOMEOSTASIS per A.D.A. criteria. Hematocrit Auto (Bld) [Volum e fraction]Ordered By: Shane Schreiber on 07-15-2024 Hematocrit (Bld) [Volume fraction] 51.0 % 40-54 [facility] Hemoglobin measurementOrdere d By: Amykurtis Gauthierkatlyntonie on 07-15-2024 Hemoglobin (Bld) [Mass/Vol] 15.6 g/dL 13.0-16.5 [facility] Immature granulocytes/100 WB C Auto (Bld)Ordered By: Shane Gauthierkatlyntonie on 07-15-2024 Immature granulocytes/100 WBC (Bld) 0.300 % 0.0-0.9 [facility] Comment on above: IG% - Immature Granu locytes (promyelocytes, myelocytes and metamyelocytes) > 1% indicates that a LEFT SHIFT is Present. Internal Medicine Office Vis itojacque 07-15-2024 Internal Medicine Office Visit [facility] [address] [address] [place] [address] OFFICE VISIT Date of Service: 07/15/24 MR#: [id number] Acct: [id number] Name: GENAOSHERRELL Gerardo Rep #: [id number] : 1945 Provider: Dr. 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 Accompanied by: Self Is patient in pain?: No Allergies No Known Allergies Allergy (Verified 07/15/24 15:09) Medications ???Medication ???Instructions ???Recorded ???Confirmed ???Type vitamins A,C,N-himu-gcbrlj 4,296 1 cap PO BID supplement 03/24/19 07/15/24 History mcg-226 mg-90 mg capsule (PreserVision AREDS) calcium 600 mg (as 1 cap PO DAILY 03/07/23 07/15/24 History carbonate)-vitamin D3 5 mcg (200 unit) capsule (Calcium 600 + D(3)) coenzyme Q10 75 mg capsule (Ultra 75 mg PO DAILY 05/28/23 07/15/24 History CoQ10) dapagliflozin propanediol 10 mg 10 mg PO DAILY #30 tabs 08/20/23 07/15/24 Rx tablet (Farxiga) furosemide 40 mg tablet 40 mg PO BID PRN SOB 09/09/23 07/15/24 History carvedilol 25 mg tablet 25 mg PO BID blood pressure #180 12/10/23 07/15/24 Rx tabs losartan 25 mg tablet 25 mg PO DAILY #90 tabs 01/19/24 07/15/24 Rx glimepiride 4 mg tablet 4 mg PO QAM #90 tabs 03/01/24 07/15/24 Rx hydrocortisone 2.5 % topical cream 1 applic topical BID PRN rash #454 03/01/24 07/15/24 Rx grams simvastatin 20 mg tablet 20 mg PO QHS #90 tabs 04/01/24 07/15/24 Rx dulaglutide 4.5 mg/0.5 mL 4.5 mg (0.5 mL) subcut QWEEK 3 07/15/24 07/15/24 Rx subcutaneous pen injector months #6.5 mL (Trulicity) Have you fallen in the past year?: No PFSH Medical History Diarrhea Chronic fatigue Screening for thyroid disorder Swallowing difficulty Orthopnea Thrombocytopenia Obesity Pleural effusion on left Dilated cardiomyopathy Chronic combined systolic and diastolic CHF (congestive heart failure) Chronic kidney disease (CKD) Essential (primary) hypertension Renal carcinoma Type 2 diabetes mellitus History of prostate cancer Urinary frequency Decreased hearing Vision loss Bladder cancer Vascular disease Prostate disease Kidney disease Hyperlipidemia Gout Bone fracture Arthritis Seasonal allergies Surgical History 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) H/O transurethral destruction of bladder lesion History of nephrectomy, left Varicose veins of both lower extremities Hx of cholecystectomy Family History Father Hypertension Melanoma Social History Smoking Status: Former smoker quit date: 07/14/89 Tobacco: How many years used: 15 how long ago did patient quit smokin years ago alcohol intake: never substance use type: does not use caffeine: Yes Type: coffee Number of servings: 3 what type of physical activity do you participate in: walking frequency: daily HPI HPI Chief Complaint: 3 M FU Details: SHERRELL GENAO, is a 78 M who presents to the office today for follow-up of his chronic medical conditions. Also has some concerns. A1c today is at 7.4 down from 8.5. Back on Trulicity and has continued to take 4 mg of glimepiride. He denies any significant concerns for hypoglycemia. Still has diarrhea, typically 1 to 2 days after Trulicity. Otherwise, tolerating medication well. Other chronic medical conditions are largely stable. Blood pressure today at 138/82 mmHg. No syncopal or near syncopal episodes. Follows up with cardiology as well. Also follows up with nephrology. ROS Const Constitutional: No body ache, chills, excessive sweating, fatigue, fever(s), frequent falls, headache(s), snoring, weakness or change in appetite Eyes Eyes: No blurry vision, change in vision, bulging eyes, floaters, visual disturbances, eye pain or Light sensitivity ENT ENT: No abnormal hearing, ear or mastoid pain, tinnitus, balance problems, nosebleed/epistaxis, nasal congestion, headache(s), neck pain or sore throat Resp Respiratory: No cough, excessive phlegm production, pain on inspiration, shortness of breath, snoring or wheezing Cardio Cardiology: No chest pain at rest, chest pain with exertion, excessive sweating, dyspnea on exertion, lightheadedness (more content not included)... Normal [facility] - Hematology and Cell countson 07-15-2024 HbA1c (Bld) [Mass fraction] 7.4 % High 4.2-6.3 [facility] Lymphocytes Auto (Unsp spec) [#/Vol]Ordered By: Shane Schreiber on 07-15-2024 Lymphocytes (Bld) [#/Vol] 1.49 10*3/uL 0.83-4.51 [facility] Lymphocytes/100 WBC Auto (Un sp spec)Ordered By: Shane Schreiber on 07-15-2024 Lymphocytes/100 WBC (Bld) 23.9 % 19-41 [facility] MCV (mean corpuscular volume ) determinationOrdered By: Shane Schreiber on 07-15-2024 MCV (RBC) [Entitic vol] 88.2 fL 80-94 [facility] Mean corpuscular hemoglobin (MCH) determinationOrdered By: Shane Schreiber on 07-15-2024 MCH (RBC) [Entitic mass] 27.0 pg 27.0-32.0 [facility] Mean corpuscular hemoglobin concentration (MCHC) determinationOrdered By: Shane Schreiber on 07-15-2024 MCHC (RBC) [Mass/Vol] 30.6 g/dL Low 32-36 [facility] Mean platelet volume determi nationOrdered By: Shane Schreiber on 07-15-2024 Platelet mean volume (Bld) [Entitic vol] 11.1 fL 6.2-12.0 [facility] Monocyte percentageOrdered B y: Shane Schreiber on 07-15-2024 Monocytes/100 WBC (Bld) 9.5 % 0-10 [facility] Neutrophil percentageOrdered By: Shane Schreiber on 07-15-2024 Neutrophils/100 WBC (Bld) 61.3 % 47-70 [facility] Nucleated red blood cell per centageOrdered By: Shane Schreiber on 07-15-2024 Nucleated RBC/100 WBC (Bld) [Ratio] 0 % 0-5 [facility] Platelet countOrdered By: Kami Schreiber on 07-15-2024 Platelets (Bld) [#/Vol] 109 10*3/uL Low 150-450 [facility] Potassium measurementOrdered By: Shane Schreiber on 07-15-2024 Potassium [Moles/Vol] 5.4 mmol/L High 3.5-5.1 [facility] RBC Auto (Bld) [#/Vol]Ordere d By: Shane Schreiber on 07-15-2024 RBC (Bld) [#/Vol] 5.78 10*6/uL 4.6-6.2 [facility] Serum anion gap measurementO rdered By: Shane Schreiber on 07-15-2024 Anion gap [Moles/Vol] 3 mmol/L Low 5-15 [facility] Serum or plasma calcium cecily urement (mass/volume)Ordered By: Shane Schreiber on 07-15-2024 Calcium [Mass/Vol] 9.6 mg/dL 8.5-10.1 [facility] Serum or plasma creatinine m easurement (mass/volume)Ordered By: Shane Schreiber on 07-15-2024 Creatinine [Mass/Vol] 2.29 mg/dL High 0.70-1.30 [facility] Comment on above: The validity of the calculated GFR & GFRAA in patients over 70 years has not been determined. Clinical correlation is essential. Serum or plasma urea nitroge n measurement (mass/volume)Ordered By: Shane Schreiber on 07-15-2024 Urea nitrogen [Mass/Vol] 29 mg/dL High 7-18 [facility] Sodium levelOrdered By: Jaylon alvareztonie Abdoul on 07-15-2024 Sodium [Moles/Vol] 138 mmol/L 136-145 [facility] White blood cell (WBC) count Ordered By: Shane Schreiber on 07-15-2024 WBC (Bld) [#/Vol] 6.2 10*3/uL 4.4-11.0 [facility] OCT MACULA CIRRUS OU (BOTH E YES)on 07-01-2024 [facility] Radiology Study observation (narrative) [facility] Bilirubin directOrdered By: Memo Gannon on 06-22-2024 Bilirubin.direct [Mass/Vol] 0.22 mg/dL 0.00-0.30 [facility] Bilirubin, totalOrdered By: Memo Gannon on 06-22-2024 Bilirubin [Mass/Vol] 1.10 mg/dL High 0.20-1.00 [facility] Comment on above: For patients on eltr ombopag therapy, use of Dimension [place] TBIL is not recommended. Diagnostic total prostate sp ecific antigen (PSA) measurementOrdered By: Jocelyn Mendoza on 06-22-2024 Prostate Specific Antigen Total 15.00 ng/mL High 0.0-4.0 [facility] Comment on above: This test was perfor med using the TPSA assay method for the[employer] chemistry system. Values obtained with differentassay methods cannot be used interchangably.When changing PSA assays in the course of monitoring apatient, additional sequential testing should be carriedout to confirm baseline values. High density lipoprotein (HD L) measurementOrdered By: Memo Gannon on 06-22-2024 Cholesterol in HDL [Mass/Vol] 30 mg/dL Low >40 [facility] Comment on above: The drugs N-Acetylcy steine and Metamizole may falsely depress this assay. Reference Range HDL <40 mg/dL Low HDL Cholesterol HDL >or= 60 mg/dL High HDL Cholesterol Laboratory - Chemistry and C hemistry - challengeOrdered By: Memo Gannon on 06-22-2024 AST [Catalytic activity/Vol] 20 U/L 15-37 [facility] Comment on above: Slight Hemolysis, Re sult may be falsely increased. Lipid Profileon 06-22-2024 Cholesterol [Mass/Vol] 146 mg/dL Normal 200 [facility] Comment on above: Result Comment: <200 mg/dL Desirable 200-240 mg/dL Borderline >240 mg/dL High Risk Performed By: #### L 500.8260, L500.3400 #### [facility] [address] [place], [address] Cholesterol in HDL [Mass/Vol] 30 mg/dL Low [facility] Comment on above: Result Comment: The drugs N-Acetylcysteine and Metamizole may falsely depress this assay. Reference Range HDL <40 mg/dL Low HDL Cholesterol HDL >or= 60 mg/dL High HDL Cholesterol Performed By: #### L 500.4100, L500.3400 #### [facility] [address] [place], [address] Cholesterol in LDL [Mass/Vol] 75 mg/dL Normal 0-130 [facility] Comment on above: Performed By: #### L 500.4100, L500.3400 #### [facility] [address] [place], [address] Cholesterol in VLDL [Mass/Vol] 41 mg/dL High 5-40 [facility] Comment on above: Performed By: #### L 500.4100, L500.3400 #### [facility] [address] [place], [address] Triglyceride [Mass/Vol] 207 mg/dL High [facility] Comment on above: Result Comment: The drugs N-Acetylcysteine and Metamizole may falsely depress this assay. Serum Triglycerides Reference Interval Normal <150 mg/dL Borderline high 150 - 199 mg/dL High 200 - 499 mg/dL Very High > or = 500 mg/dL Performed By: #### L 500.4100, L500.3400 #### [facility] [address] [place], [address] Liver Profileon 06-22-2024 Albumin [Mass/Vol] 4.1 g/dL Normal 3.2-5.0 [facility] Comment on above: Performed By: #### L 500.4100, L500.3400 #### [facility] [address] [place], [address] ALK P 82 U/L Normal 45-117 [facility] Comment on above: Performed By: #### L 500.4100, L500.3400 #### [facility] [address] [place], [address] ALT [Catalytic activity/Vol] 26 U/L Normal 16-61 [facility] Comment on above: Performed By: #### L 500.4100, L500.3400 #### [facility] [address] [place], [address] AST [Catalytic activity/Vol] 20 U/L Normal 15-37 [facility] Comment on above: Result Comment: Slig ht Hemolysis, Result may be falsely increased. Performed By: #### L 500.4100, L500.3400 #### [facility] [address] [place], [address] Bilirubin [Mass/Vol] 1.10 mg/dL High 0.20-1.00 [facility] Comment on above: Result Comment: For patients on eltrombopag therapy, use of Dimension [place] TBIL is not recommended. Performed By: #### L 500.4100, L500.3400 #### [facility] [address] [place], [address] Bilirubin.direct [Mass/Vol] 0.22 mg/dL Normal 0.00-0.30 [facility] Comment on above: Performed By: #### L 500.4100, L500.3400 #### [facility] [address] [place], [address] Globulin (S) [Mass/Vol] 4.3 g/dL High 2.2-4.2 [facility] Comment on above: Performed By: #### L 500.4100, L500.3400 #### [facility] [address] [place], [address] T PROT 8.4 g/dL High 6.4-8.2 [facility] Comment on above: Performed By: #### L 500.4100, L500.3400 #### [facility] [address] [place], [address] Low density lipoprotein (LDL ) cholesterol measurementOrdered By: Memo Gannon on 06-22-2024 Cholesterol in LDL [Mass/Vol] 75 mg/dL 0-130 [facility] PSA,Total- Diagnosticon 12-1 0-2023 PSA, DIAGNOSTIC 15.00 ng/mL High 0.0-4.0 [facility] Comment on above: Result Comment: This test was performed using the TPSA assay method for the [employer] chemistry system. Values obtained with different assay methods cannot be used interchangably. When changing PSA assays in the course of monitoring a patient, additional sequential testing should be carried out to confirm baseline values. Performed By: #### L 501.9940 #### [facility] [address] [place], [address] Serum globulin measurementOr dered By: Memo Gannon on 06-22-2024 Globulin (S) [Mass/Vol] 4.3 g/dL High 2.2-4.2 [facility] Serum or plasma alanine graham otransferase (ALT) measurementOrdered By: Memo Gannon on 06-22-2024 ALT [Catalytic activity/Vol] 26 U/L 16-61 [facility] Serum or plasma albumin cecily urement (mass/volume)Ordered By: Memo Gannon on 06-22-2024 Albumin [Mass/Vol] 4.1 g/dL 3.2-5.0 [facility] Serum or plasma alkaline nadiya sphatase measurementOrdered By: Memo Gannon on 06-22-2024 ALP [Catalytic activity/Vol] 82 U/L 45-117 [facility] Serum or plasma cholesterol measurement (mass/volume)Ordered By: Memo Gannon on 06-22-2024 Cholesterol [Mass/Vol] 146 mg/dL <200 [facility] Comment on above: <200 mg/dL Desirable 200-240 mg/dL Borderline >240 mg/dL High Risk Total proteinOrdered By: Sami Gannon on 06-22-2024 Protein [Mass/Vol] 8.4 g/dL High 6.4-8.2 [facility] Triglycerides measurementOrd ered By: Memo Gannon on 06-22-2024 Triglyceride [Mass/Vol] 207 mg/dL High <199 [facility] Comment on above: The drugs N-Acetylcy steine and Metamizole may falsely depress this assay.Serum Triglycerides Reference Interval Normal <150 mg/dL Borderline high 150 - 199 mg/dL High 200 - 499 mg/dL Very High > or = 500 mg/dL Very low density lipoprotein (VLDL) cholesterol measurementOrdered By: Memo Gannon on 06-22-2024 VLDL Cholesterol 41 mg/dL High 5-40 [facility] Cardiology Visit Reporton Cardiology Visit Report [facility] [address] [place] [address] OFFICE VISIT Date of Service: 04/29/24 MR#: [id number] Acct: [id number] Name: SHERRELL GENAO Rep #: [id number] : 1945 Provider: Dr. Dante Hilliard MD Age/Sex: 78/M Location: [facility] Status: Signed [facility] HPI History of Present Illness Details: Pleasant 78-year-old man with a history of non-ischemic cardiomyopathy, hypertension, hyperlipidemia, chronic kidney disease, history of left nephrectomy, prostate carcinoma and bladder carcinoma. An echocardiogram performed demonstrated global reduction in left ventricular ejection fraction. He has been evaluated by noninvasive means and was noted to have no ischemia and therefore presumed to have a nonischemic cardiomyopathy. He did have a CAT scan of his chest in July 2019 which demonstrated atherosclerotic calcification of the arch and calcifications of the coronary artery also noted. He was put on Lasix as well as an ARB. He also had his beta-ken titrated. He denies any chest pain. He denies palpitations. He denies bilateral lower extremity edema. He denies claudication. He states shortness of breath with activity most notably during humid weather. He denies shortness of breath at rest, orthopnea, or PND. He denies chronic cough. He denies significant, sudden weight gain. He denies lightheadedness, dizziness, near-syncope, or syncope. He denies blood in urine, blood in stool, or epistaxis. He denies fever with chills. He denies myalgia. He denies fatigue. His exercise level has remained stable. Intake Vital Signs 03/07/23 09:14 03/01/24 08:23 04/29/24 10:45 Height 5 ft 10 in 5 ft 10 in 5 ft 10 in Weight: 236 lb BMI 33.8 BP 128/77 H Blood Pressure Location Rt brachial Position Sitting Respiration 16 Pulse 65 Pulse Source Monitor Pulse Oximetry (%) 95 Oxygen Delivery Method room air Intake Visit Reasons: 1 Y FU ICD f/u @ 10:30 Accompanied by: Self Is patient in pain?: Yes (Generalized joint, left shoulder) Pain scale (1-10): 2 Allergies No Known Allergies Allergy (Verified 04/29/24 10:47) Medications ???Medication ???Instructions ???Recorded ???Confirmed ???Type vitamins A,C,K-qhwn-dylzbp 4,296 1 cap PO BID supplement 03/24/19 04/29/24 History mcg-226 mg-90 mg capsule (PreserVision AREDS) calcium 600 mg (as 1 cap PO DAILY 03/07/23 04/29/24 History carbonate)-vitamin D3 5 mcg (200 unit) capsule (Calcium 600 + D(3)) coenzyme Q10 75 mg capsule (Ultra 75 mg PO DAILY 05/28/23 04/29/24 History CoQ10) dapagliflozin propanediol 10 mg 10 mg PO DAILY #30 tabs 08/20/23 04/29/24 Rx tablet (Farxiga) furosemide 40 mg tablet 40 mg PO BID PRN SOB 09/09/23 04/29/24 History carvedilol 25 mg tablet 25 mg PO BID blood pressure #180 12/10/23 04/29/24 Rx tabs losartan 25 mg tablet 25 mg PO DAILY #90 tabs 01/19/24 04/29/24 Rx glimepiride 4 mg tablet 4 mg PO QAM #90 tabs 03/01/24 04/29/24 Rx hydrocortisone 2.5 % topical cream 1 applic topical BID PRN rash #454 03/01/24 04/29/24 Rx grams simvastatin 20 mg tablet 20 mg PO QHS #90 tabs 04/01/24 04/29/24 Rx Ejection fraction %: 30 Have you fallen in the past year?: No PFSH Medical History Diarrhea Chronic fatigue Screening for thyroid disorder Swallowing difficulty Orthopnea Thrombocytopenia Obesity Pleural effusion on left Dilated cardiomyopathy Chronic combined systolic and diastolic CHF (congestive heart failure) Chronic kidney disease (CKD) Essential (primary) hypertension Renal carcinoma Type 2 diabetes mellitus History of prostate cancer Urinary frequency Decreased hearing Vision loss Bladder cancer Vascular disease Prostate disease Kidney disease Hyperlipidemia Gout Bone fracture Arthritis Seasonal allergies Surgical History 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) H/O transurethral destruction of bladder lesion History of nephrectomy, left Varicose veins of both lower extremities Hx of cholecystectomy Family History Father Hypertension Melanoma Social History Smoking Status: Former smoker quit date: 07/14/89 Tobacco: How many years used: 15 how long ago did patient quit smokin years ago alcohol intake: never substance use type: does not use caffeine: Yes Type: coffee Number of servings: 3 what type of physical activity do you participate in: walking frequency: daily ROS Const Const: Positive for night sweats (Possible side effects for hormone shots for prostate cancer, 6 mos ago); Negative for fatigue, weakn (more content not included)... Normal [facility] Pacemaker Checkon 04-29-2024 Pacemaker Check [facility] [address] [place] [address] Pacemaker Check Date of Service: 04/29/241603 MR#: [id number] Acct: [id number] Name: SHERRELL GENAO Rep #: [id number] : 1945 From: Era Otero Age/Sex: 78/M Location: [facility] Status: Signed Billing Codes ICD Device Billin ICD Dev Prog Eval, Single Assessment and Plan Assessment and Plan (1) Implantable cardioverter-defibrillato r (ICD) in situ: Status: Chronic Comment: Implanted system is a single chamber [employer] Sci ICD per Dr. Chris French @ [facility] (2) Chronic combined systolic and diastolic CHF (congestive heart failure): Status: Chronic (3) Dilated cardiomyopathy: Status: Chronic 04/29/24 160 Date Era Lea Signature: Date (if applicable) CC: Normal [facility] Internal Medicine Office Vis itojacque 03-01-2024 Internal Medicine Office Visit [facility] [address] [place] [address] [place] [address] OFFICE VISIT Date of Service: 03/01/24 MR#: [id number] Acct: [id number] Name: SHERRELL GENAO Rep #: [id number] : 1945 Provider: Dr. Shane landry MD Age/Sex: 78/M Location: [facility] Status: Signed Intake Vital Signs 11/24/23 08:49 03/01/24 08:23 Height 5 ft 10 in 5 ft 10 in Weight: 230 lb BMI 33.0 BP 130/72 H Blood Pressure Location Lt brachial Position Sitting Respiration 17 Pulse 78 Pulse Source Monitor Temp 97.2 F L Temp Source Temporal Pulse Oximetry (%) 97 Oxygen Delivery Method room air Intake Visit Reasons: 3 M FU Chief Complaint: 3 M FU Is patient in pain?: No Allergies No Known Allergies Allergy (Verified 03/01/24 08:24) Medications ???Medication ???Instructions ???Recorded ???Confirmed ???Type vitamins A,C,Q-kbaq-rcrmvi 4,296 1 cap PO BID supplement 03/24/19 03/01/24 History mcg-226 mg-90 mg capsule (PreserVision AREDS) calcium carbonate 600 mg-vitamin 1 cap PO DAILY 03/07/23 03/01/24 History D3 5 mcg (200 unit) capsule (Calcium 600 + D(3)) coenzyme Q10 75 mg capsule (Ultra 75 mg PO DAILY 05/28/23 03/01/24 History CoQ10) dapagliflozin propanediol 10 mg 10 mg PO DAILY #30 tabs 08/20/23 03/01/24 Rx tablet (Farxiga) furosemide 40 mg tablet 40 mg PO BID PRN SOB 09/09/23 03/01/24 History carvedilol 25 mg tablet 25 mg PO BID blood pressure #180 12/10/23 03/01/24 Rx tabs simvastatin 20 mg tablet 20 mg PO QHS #90 tabs 12/10/23 03/01/24 Rx losartan 25 mg tablet 25 mg PO DAILY #90 tabs 01/19/24 03/01/24 Rx glimepiride 4 mg tablet 4 mg PO QAM #90 tabs 03/01/24 03/01/24 Rx hydrocortisone 2.5 % topical cream 1 applic topical BID PRN rash #454 03/01/24 03/01/24 Rx grams Have you fallen in the past year?: No PFSH Medical History Diarrhea Chronic fatigue Screening for thyroid disorder Swallowing difficulty Orthopnea Thrombocytopenia Obesity Pleural effusion on left Dilated cardiomyopathy Chronic combined systolic and diastolic CHF (congestive heart failure) Chronic kidney disease (CKD) Essential (primary) hypertension Renal carcinoma Type 2 diabetes mellitus History of prostate cancer Urinary frequency Decreased hearing Vision loss Bladder cancer Vascular disease Prostate disease Kidney disease Hyperlipidemia Gout Bone fracture Arthritis Seasonal allergies Surgical History 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) H/O transurethral destruction of bladder lesion History of nephrectomy, left Varicose veins of both lower extremities Hx of cholecystectomy Family History Father Hypertension Melanoma Social History Smoking Status: Former smoker quit date: 07/14/89 Tobacco: How many years used: 15 how long ago did patient quit smokin years ago alcohol intake: never substance use type: does not use caffeine: Yes Type: coffee Number of servings: 3 what type of physical activity do you participate in: walking frequency: daily HPI HPI Chief Complaint: 3 M FU Details: SHERRELL GENAO, is a 78 M who presents to the office today for follow-up of his chronic medical conditions. No acute concerns at this time. A1c today is at 8.5 up from 7. Had been on Trulicity 4.5 mg weekly but this has been back ordered. Tried Mounjaro but discontinued due to significant diarrhea which improved after he stopped. He has been on glimepiride which he states that he is taking as prescribed. Readings at home have been elevated. Semaglutide was not approved by his insurance. Other chronic medical conditions are stable. Blood pressure today is at 130/72 mmHg. Denies shortness of breath or chest tightness. Also follows up with cardiology. ROS Const Constitutional: No body ache, chills, excessive sweating, fatigue, fever(s), frequent falls, headache(s), snoring, weight change, sleep problems, abnormal sleep pattern or change in appetite Eyes Eyes: No blurry vision, change in vision, eye pain or Light sensitivity ENT ENT: No abnormal hearing, ear or mastoid pain, tinnitus, balance problems, nosebleed/epistaxis, nasal congestion, headache(s), neck pain or sore throat Resp Respiratory: No cough, excessive phlegm production, pain on inspiration, shortness of breath, snoring or wheezing Cardio Cardiology: No chest pain at rest, chest pain with exertion, excessive sweating, shortness of breath, dyspnea on exertion, lightheadedness, orthopnea or palpitations Gastro GI: Positive for other (c/o gas ); No abdominal pain, change in bowel habits (more content not included)... Normal [facility] Basophil percentageOrdered B y: Memo Gannon on 09-08-2023 Chloride [Moles/Vol] 110 mmol/L 98-107 [facility] Glucose [Mass/Vol] 206 mg/dL 74-106 [facility] Comment on above: Glucose result great er than or equal to 200 mg/dLsuggests DIABETES MELLITUS per A.D.A. criteria. Potassium [Moles/Vol] 4.7 mmol/L 3.5-5.1 [facility] Sodium [Moles/Vol] 139 mmol/L 136-145 [facility] Laboratory - Chemistry and C hemistry - challengeOrdered By: Memo Gannon on 09-08-2023 CO2 [Moles/Vol] 24.0 mmol/L 21.0-32.0 [facility] Urea nitrogen/Creatinine [Mass ratio] 13.7 mg/mg 10-20 [facility] No Panel InformationOrdered By: Memo Gannon on 09-08-2023 Estimated GFR (MDRD) Amer 38 mL/min >60 [facility] Comment on above: GFR Calc Estimated GFR (MDRD) Non-Af Amer 31 mL/min >60 [facility] Comment on above: Non- GFR Calc Serum or plasma calcium cecily urement (mass/volume)Ordered By: Memo Gannon on 09-08-2023 Calcium [Mass/Vol] 9.4 mg/dL 8.5-10.1 [facility] Serum or plasma creatinine m easurement (mass/volume)Ordered By: Memo Gannon on 09-08-2023 Creatinine [Mass/Vol] 2.19 mg/dL 0.70-1.30 [facility] Comment on above: The validity of the calculated GFR & GFRAA in patients over 70 years has not been determined. Clinical correlation is essential. Serum or plasma urea nitroge n measurement (mass/volume)Ordered By: Memo Gannon on 09-08-2023 Urea nitrogen [Mass/Vol] 30 mg/dL 7-18 [facility] Thin prep Papanicolaou smear with manual screeningOrdered By: Memo Gannon on 09-08-2023 Thin prep Papanicolaou smear with manual screening 5 5-15 [facility] - Hematology and Cell countson 08-29-2023 HbA1c (Bld) [Mass fraction] 7.8 % 4.2-6.3 [facility] Basophil percentageOrdered B y: Memo Gannon on 08-18-2023 Basophil percentage 0.07 ng/mL 0.0-4.0 [facility] Comment on above: This test was perfor med using the TPSA assay method [facility]. Values obtained with differentassay methods cannot be used interchangably.When changing PSA assays in the course of monitoring apatient, additional sequential testing should be carriedout to confirm baseline values. Chloride [Moles/Vol] 105 mmol/L 98-107 [facility] Glucose [Mass/Vol] 209 mg/dL 74-106 [facility] Comment on above: Glucose result great er than or equal to 200 mg/dLsuggests DIABETES MELLITUS per A.D.A. criteria. Potassium [Moles/Vol] 4.7 mmol/L 3.5-5.1 [facility] Sodium [Moles/Vol] 138 mmol/L 136-145 [facility] - Chemistry and C hemistry - challengeOrdered By: Memo Gannon on 08-18-2023 CO2 [Moles/Vol] 24.0 mmol/L 21.0-32.0 [facility] Urea nitrogen/Creatinine [Mass ratio] 15.8 mg/mg 10-20 [facility] No Panel InformationOrdered By: Memo Gannon on 08-18-2023 Estimated GFR (MDRD) Amer 33 mL/min >60 [facility] Comment on above: GFR Calc Estimated GFR (MDRD) Non-Af Amer 27 mL/min >60 [facility] Comment on above: Non- GFR Calc Serum or plasma calcium cecily urement (mass/volume)Ordered By: Memo Gannon on 08-18-2023 Calcium [Mass/Vol] 9.3 mg/dL 8.5-10.1 [facility] Serum or plasma creatinine m easurement (mass/volume)Ordered By: Memo Gannon on 08-18-2023 Creatinine [Mass/Vol] 2.47 mg/dL 0.70-1.30 [facility] Comment on above: The validity of the calculated GFR & GFRAA in patients over 70 years has not been determined. Clinical correlation is essential. Serum or plasma urea nitroge n measurement (mass/volume)Ordered By: Memo Gannon on 08-18-2023 Urea nitrogen [Mass/Vol] 39 mg/dL 7-18 [facility] Thin prep Papanicolaou smear with manual screeningOrdered By: Memo Gannon on 08-18-2023 Protein (U) [Mass/Vol] 20.5 mg/dL 0.0-11.8 [facility] Thin prep Papanicolaou smear with manual screening 9 5-15 [facility] Urine creatinine measurement (mass/volume)Ordered By: Memo Gannon on 08-18-2023 Creatinine (U) [Mass/Vol] 138.00 mg/dL NO RANGE EST. [facility] Urine protein/creatinine mas s ratioOrdered By: Memo Gannon on 08-18-2023 Protein/Creatinine (U) [Mass ratio] 149 mg/g CRE 0-200 [facility] - Chemistry and C hemistry - challengeOrdered By: Shane Schreiber on 05-28-2023 Free T4 [Mass/Vol] 1.21 ng/dL 0.76-1.46 [facility] - Hematology and Cell countson 05-28-2023 HbA1c (Bld) [Mass fraction] 9.5 % 4.2-6.3 [facility] No Panel InformationOrdered By: Shane Schreiber on 05-28-2023 Thyroid Stimulating Hormone (TSH) 1.12 uIU/mL 0.358-3.74 [facility] Basophil percentageOrdered B y: Memo Gannon on 04-21-2023 Bilirubin [Mass/Vol] 0.70 mg/dL 0.20-1.00 [facility] Comment on above: For patients on eltr ombopag therapy, use of Dimension [place] TBIL is not recommended. Cholesterol [Mass/Vol] 146 mg/dL <200 [facility] Comment on above: <200 mg/dL Desirable 200-240 mg/dL Borderline >240 mg/dL High Risk Protein [Mass/Vol] 6.9 g/dL 6.4-8.2 [facility] Triglyceride [Mass/Vol] 311 mg/dL <199 [facility] Comment on above: The drugs N-Acetylcy steine and Metamizole may falsely depress this assay.Serum Triglycerides Reference Interval Normal <150 mg/dL Borderline high 150 - 199 mg/dL High 200 - 499 mg/dL Very High > or = 500 mg/dL Direct bilirubinOrdered By: Memo Gannon on 04-21-2023 Bilirubin.direct [Mass/Vol] 0.19 mg/dL 0.00-0.30 [facility] - Chemistry and C hemistry - challengeOrdered By: Memo Gannon on 04-21-2023 ALP [Catalytic activity/Vol] 62 U/L 45-117 [facility] ALT [Catalytic activity/Vol] 29 U/L 16-61 [facility] Globulin (S) [Mass/Vol] 3.6 g/dL 2.2-4.2 [facility] No Panel InformationOrdered By: Burak Gtz on 04-21-2023 Prostate Specific Antigen Total 0.51 ng/mL 0.0-4.0 [facility] Comment on above: This test was perfor med using the TPSA assay method [facility]. Values obtained with differentassay methods cannot be used interchangably.When changing PSA assays in the course of monitoring apatient, additional sequential testing should be carriedout to confirm baseline values. Serum or plasma albumin cecily urement (mass/volume)Ordered By: Memo Gannon on 04-21-2023 Albumin [Mass/Vol] 3.3 g/dL 3.2-5.0 [facility] Serum or plasma cholesterol in HDL measurement (mass/volume)Ordered By: Memo Gannon on 04-21-2023 Cholesterol in HDL [Mass/Vol] 34 mg/dL >40 [facility] Comment on above: The drugs N-Acetylcy steine and Metamizole may falsely depress this assay. Reference Range HDL <40 mg/dL Low HDL Cholesterol HDL >or= 60 mg/dL High HDL Cholesterol Serum or plasma cholesterol in VLDL measurement (mass/volume)Ordered By: Memo Gannon on 04-21-2023 Cholesterol in VLDL [Mass/Vol] 62 mg/dL 5-40 [facility] Serum or plasma low density lipoprotein (LDL) cholesterol measurement (mass/volume)Ordered By: Memo Gannon on 04-21-2023 Cholesterol in LDL [Mass/Vol] 50 mg/dL 0-130 [facility] Thin prep Papanicolaou smear with manual screeningOrdered By: Memo Gannon on 04-21-2023 Thin prep Papanicolaou smear with manual screening 20 U/L 15-37 [facility] Basophil percentageOrdered B y: Shane Schreiber on 02-17-2023 WBC (Bld) [#/Vol] 6.2 10*3/uL 4.4-11.0 [facility] Basophil percentage 3.8 mg/dL 2.5-4.9 [facility] Chloride [Moles/Vol] 103 mmol/L 98-107 [facility] Glucose [Mass/Vol] 191 mg/dL 74-106 [facility] Comment on above: Fasting Glucose resu lt greater than or equal to 126 mg/dL suggests DIABETES MELLITUS per A.D.A. criteria. Potassium [Moles/Vol] 4.9 mmol/L 3.5-5.1 [facility] Sodium [Moles/Vol] 136 mmol/L 136-145 [facility] Basophil percentageOrdered B y: Memo Gannon on 02-17-2023 Bilirubin [Mass/Vol] 0.60 mg/dL 0.20-1.00 [facility] Comment on above: For patients on eltr ombopag therapy, use of Dimension [place] TBIL is not recommended. Cholesterol [Mass/Vol] 198 mg/dL <200 [facility] Comment on above: <200 mg/dL Desirable 200-240 mg/dL Borderline >240 mg/dL High Risk Protein [Mass/Vol] 7.3 g/dL 6.4-8.2 [facility] Triglyceride [Mass/Vol] 533 mg/dL <199 [facility] Comment on above: The drugs N-Acetylcy steine and Metamizole may falsely depress this assay. TRIGLYCERIDE IS GREATER THAN 400 mg/dL. LDL RESULT IS INVALID AND WILL NOT BE REPORTED.Serum Triglycerides Reference Interval Normal <150 mg/dL Borderline high 150 - 199 mg/dL High 200 - 499 mg/dL Very High > or = 500 mg/dL Blood erythrocytes count (nu mber/volume)Ordered By: Shane Schreiber on 02-17-2023 RBC (Bld) [#/Vol] 5.09 10*6/uL 4.6-6.2 [facility] Blood hemoglobin measurement (mass/volume)Ordered By: Shane Schreiber on 02-17-2023 Hemoglobin (Bld) [Mass/Vol] 14.7 g/dL 13.0-16.5 [facility] Blood platelet mean volumeOr dered By: Shane Schreiber on 02-17-2023 Platelet mean volume (Bld) [Entitic vol] 11.3 fL 6.2-12.0 [facility] Determination of erythrocyte mean corpuscular volume (MCV)Ordered By: Shane Schreiber on 02-17-2023 MCV (RBC) [Entitic vol] 90.6 fL 80-94 [facility] Direct bilirubinOrdered By: Memo Gannon on 02-17-2023 Bilirubin.direct [Mass/Vol] 0.12 mg/dL 0.00-0.30 [facility] Hematocrit Auto (Bld) [Volum e fraction]Ordered By: Shane Schreiber on 02-17-2023 Hematocrit (Bld) [Volume fraction] 46.1 % 40-54 [facility] Laboratory - Chemistry and C hemistry - challengeOrdered By: Memo Gannon on 02-17-2023 ALP [Catalytic activity/Vol] 72 U/L 45-117 [facility] ALT [Catalytic activity/Vol] 32 U/L 16-61 [facility] Globulin (S) [Mass/Vol] 3.8 g/dL 2.2-4.2 [facility] Laboratory - Chemistry and C hemistry - challengeOrdered By: Shane Schreiber on 02-17-2023 CO2 [Moles/Vol] 27.0 mmol/L 21.0-32.0 [facility] Urea nitrogen/Creatinine [Mass ratio] 22.4 mg/mg 10-20 [facility] Laboratory - Hematology and Cell countsOrdered By: Shane Schreiber on 02-17-2023 Erythrocyte distribution width (RBC) [Entitic vol] 52.1 fL 35.1-43.9 [facility] Erythrocyte distribution width (RBC) [Ratio] 15.6 % 11.6-14.6 [facility] MCH (RBC) [Entitic mass] 28.9 pg 27.0-32.0 [facility] MCHC Auto (RBC) [Mass/Vol]Or dered By: Shane Schreiber on 02-17-2023 MCHC (RBC) [Mass/Vol] 31.9 g/dL 32-36 [facility] No Panel InformationOrdered By: Shane Schreiber on 02-17-2023 Parathyroid Hormone (Intact) 39.2 pg/mL 18.4-80.1 [facility] Vitamin D 25-Hydroxy 23.1 ng/mL [facility] Comment on above: Vitamin D 25(OH) Sta tus Range Deficiency <20 ng/mL (50nmol/L) Insufficiency 20 - 30 ng/mL (50 - 75 nmol/L) Sufficiency 30 - 100 ng/mL (75 - 250 nmol/L) Toxicity >100 ng/mL (>250 nmol/L) Estimated GFR (MDRD) Amer 32 mL/min >60 [facility] Comment on above: GFR Calc Estimated GFR (MDRD) Non-Af Amer 27 mL/min >60 [facility] Comment on above: Non- GFR Calc Urine Microalbumin/Creatini ne Ratio 38.0 mg/g CRE <30 [facility] Platelets bldOrdered By: Justin Schreiber on 02-17-2023 Platelets (Bld) [#/Vol] 116 10*3/uL 150-450 [facility] Serum or plasma albumin cecily urement (mass/volume)Ordered By: Memo Gannon on 02-17-2023 Albumin [Mass/Vol] 3.5 g/dL 3.2-5.0 [facility] Serum or plasma calcium cecily urement (mass/volume)Ordered By: Shane Schreiber on 02-17-2023 Calcium [Mass/Vol] 9.1 mg/dL 8.5-10.1 [facility] Serum or plasma cholesterol in HDL measurement (mass/volume)Ordered By: Memo Gannon on 02-17-2023 Cholesterol in HDL [Mass/Vol] 36 mg/dL >40 [facility] Comment on above: The drugs N-Acetylcy steine and Metamizole may falsely depress this assay. Reference Range HDL <40 mg/dL Low HDL Cholesterol HDL >or= 60 mg/dL High HDL Cholesterol Serum or plasma cholesterol in VLDL measurement (mass/volume)Ordered By: Memo Gannon on 02-17-2023 Cholesterol in VLDL [Mass/Vol] [facility] Comment on above: Test not performed Serum or plasma creatinine m easurement (mass/volume)Ordered By: Shane Schreiber on 02-17-2023 Creatinine [Mass/Vol] 2.50 mg/dL 0.70-1.30 [facility] Comment on above: The validity of the calculated GFR & GFRAA in patients over 70 years has not been determined. Clinical correlation is essential. Serum or plasma low density lipoprotein (LDL) cholesterol measurement (mass/volume)Ordered By: Mmeo Gannon on 02-17-2023 Cholesterol in LDL [Mass/Vol] [facility] Comment on above: Test not performed Serum or plasma urea nitroge n measurement (mass/volume)Ordered By: Shane Schreiber on 02-17-2023 Urea nitrogen [Mass/Vol] 56 mg/dL 7-18 [facility] Thin prep Papanicolaou smear with manual screeningOrdered By: Memo Gannon on 02-17-2023 Thin prep Papanicolaou smear with manual screening 16 U/L 15-37 [facility] Thin prep Papanicolaou smear with manual screeningOrdered By: Shane Schreiber on 02-17-2023 Thin prep Papanicolaou smear with manual screening 6 5-15 [facility] Thin prep Papanicolaou smear with manual screening 53.9 mg/L NO RANGE EST. [facility] Urine creatinine measurement (mass/volume)Ordered By: Shane Schreiber on 02-17-2023 Creatinine (U) [Mass/Vol] 142.00 mg/dL NO RANGE EST. [facility] Urine protein measurement (m ass/volume)Ordered By: Shane Schreiber on 02-17-2023 Protein (U) [Mass/Vol] 18.9 mg/dL 0.0-11.8 [facility] Urine protein/creatinine mas s ratioOrdered By: Shane Schreiber on 02-17-2023 Protein/Creatinine (U) [Mass ratio] 133 mg/g CRE 0-200 [facility] Whole blood hemoglobin A1c/t otal hemoglobin ratio (mass fraction)Ordered By: Shane Schreiber on 02-17-2023 HbA1c (Bld) [Mass fraction] 7.6 % 3.8-5.6 [facility] Comment on above: Normal < 5.7 % Predi abetic 5.7 - 6.4 % Diabetic >or= 6.5 % Please note range changes. No Panel InformationOrdered By: Burak Gtz on 01-21-2023 Prostate Specific Antigen Total 17.90 ng/mL 0.0-4.0 [facility] Comment on above: This test was perfor med using the TPSA assay method [facility]. Values obtained with differentassay methods cannot be used interchangably.When changing PSA assays in the course of monitoring apatient, additional sequential testing should be carriedout to confirm baseline values. Laboratory - Hematology and Cell countson 11-22-2022 HbA1c (Bld) [Mass fraction] 7.1 % 4.2-6.3 [facility] XR ANKLE MINIMUM 3 VIEWS LEF Ton 10-17-2022 XR ANKLE MINIMUM 3 VIEWS LEFT ORIGINAL EXAMINATION: THREE XRAY VIEWS OF THE LEFT ANKLE10/14/2022 2:47 pm ANKLE 3 VIEWS LEFT COMPARISON: None HISTORY: ORDERING SYSTEM PROVIDED HISTORY: Reason for Exam: pain FINDINGS: Mild calcifications seen along the interosseous membrane. Corticated ossicle noted along the medial side of the talus. There are enthesophytes at the medial malleolus. Prominent calcaneal enthesophytes noted. Vascular calcifications demonstrated. IMPRESSION: Prominent calcaneal enthesophytes Chronic appearing posttraumatic ossicles near the medial talus. Interpreted by: Ismael Alanis MD Preliminary Report By: Ismael Alanis MD Electronically signed By Ismael Alanis MD Dictated Date: 10/17/2022 8:11:24 AM Prelim Date: 10/17/2022 8:12:19 AM Sign Date: 10/17/2022 8:12:19 AM Ordering Provider: [facility] ([place]) XR ANKLE MINIMUM 3 VIEWS RIG HTon 10-17-2022 XR ANKLE MINIMUM 3 VIEWS RIGHT ORIGINAL EXAMINATION: THREE XRAY VIEWS OF THE RIGHT ANKLE10/14/2022 2:48 pm ANKLE 3 VIEWS RIGHT COMPARISON: None HISTORY: ORDERING SYSTEM PROVIDED HISTORY: Reason for Exam: pain FINDINGS: Numerous posttraumatic ossicles noted near the medial malleolus, chronic. There is also a tiny corticated ossicle near the lateral malleolus. Prominent calcaneal enthesophytes noted. Soft tissue swelling is noted laterally. There are significant vascular calcifications. There is no radiopaque foreign body. IMPRESSION: Numerous chronic appearing posttraumatic ossicles near the mediolateral malleoli Prominent soft tissue swelling noted laterally Large calcaneal enthesophytes Interpreted by: Ismael Alanis MD Preliminary Report By: Ismael Alanis MD Electronically signed By Ismael Alanis MD Dictated Date: 10/17/2022 8:12:28 AM Prelim Date: 10/17/2022 8:13:34 AM Sign Date: 10/17/2022 8:13:34 AM Ordering Provider: [facility] ([place]) XR FOOT MINIMUM 3 VIEWS LEFT on 10-17-2022 XR FOOT MINIMUM 3 VIEWS LEFT ORIGINAL EXAMINATION: THREE XRAY VIEWS OF THE LEFT FOOT10/14/2022 2:46 pm FOOT 3 VIEWS LEFT COMPARISON: None HISTORY: ORDERING SYSTEM PROVIDED HISTORY: Reason for Exam: pain FINDINGS: No acute fracture or dislocation is identified.Periarticular calcifications seen at the 1st metatarsophalangeal joint. There is mild spurring at the 1st metatarsophalangeal joint. There are mild marginal erosions in the 1st metatarsal head. Enthesopathy noted at the calcaneus. Mild intertarsal spurring seen. Atherosclerotic vascular disease identified. Exostosis projects off the medial side of the 1st distal phalanx. There is no radiopaque foreign body. 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 Spurring noted about the intertarsal joint spaces. There is periarticular calcification around the right 1st metatarsophalangeal joint. Associated marginal erosions noted. There appears to be an overhanging edge of the 1st metatarsal head best appreciated on the oblique view. There is no radiopaque foreign body. 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 Cholesterol [Mass/Vol] 111 mg/dL <200 [facility] Comment on above: <200 mg/dL Desirable 200-240 mg/dL Borderline >240 mg/dL High Risk Protein [Mass/Vol] 7.4 g/dL 6.4-8.2 [facility] Triglyceride [Mass/Vol] 361 mg/dL <199 [facility] Comment on above: The drugs N-Acetylcy steine and Metamizole may falsely depress this assay.Serum Triglycerides Reference Interval Normal <150 mg/dL Borderline high 150 - 199 mg/dL High 200 - 499 mg/dL Very High > or = 500 mg/dL Direct bilirubinOrdered By: Memo Gannon on 09-03-2022 Bilirubin.direct [Mass/Vol] 0.17 mg/dL 0.00-0.30 [facility] Laboratory - Chemistry and C hemistry - challengeOrdered By: Memo Gannon on 09-03-2022 ALP [Catalytic activity/Vol] 79 U/L 45-117 [facility] ALT [Catalytic activity/Vol] 35 U/L 16-61 [facility] Globulin (S) [Mass/Vol] 3.9 g/dL 2.2-4.2 [facility] No Panel InformationOrdered By: Dr. Gtz on 09-03-2022 Prostate Specific Antigen Total 13.40 ng/mL 0.0-4.0 [facility] Comment on above: This test was perfor med using the TPSA assay method [facility]. Values obtained with differentassay methods cannot be used interchangably.When changing PSA assays in the course of monitoring apatient, additional sequential testing should be carriedout to confirm baseline values. Serum or plasma albumin cecily urement (mass/volume)Ordered By: Memo Gannon on 09-03-2022 Albumin [Mass/Vol] 3.5 g/dL 3.2-5.0 [facility] Serum or plasma cholesterol in HDL measurement (mass/volume)Ordered By: Memo Gannon on 09-03-2022 Cholesterol in HDL [Mass/Vol] 29 mg/dL >40 [facility] Comment on above: The drugs N-Acetylcy steine and Metamizole may falsely depress this assay. Reference Range HDL <40 mg/dL Low HDL Cholesterol HDL >or= 60 mg/dL High HDL Cholesterol Serum or plasma cholesterol in VLDL measurement (mass/volume)Ordered By: Memo Gannon on 09-03-2022 Cholesterol in VLDL [Mass/Vol] 72 mg/dL 5-40 [facility] Serum or plasma low density lipoprotein (LDL) cholesterol measurement (mass/volume)Ordered By: Memo Gannon on 09-03-2022 Cholesterol in LDL [Mass/Vol] 10 mg/dL 0-130 [facility] Thin prep Papanicolaou smear with manual screeningOrdered By: Memo Gannon on 09-03-2022 Thin prep Papanicolaou smear with manual screening 26 U/L 15-37 [facility] Laboratory - Hematology and Cell countson 08-23-2022 HbA1c (Bld) [Mass fraction] 7.7 % [facility] Basophil percentageOrdered B y: Dr. Poe on 07-24-2022 Chloride [Moles/Vol] 104 mmol/L 98-107 [facility] Glucose [Mass/Vol] 150 mg/dL 74-106 [facility] Comment on above: Fasting Glucose resu lt greater than or equal to 126 mg/dL suggests DIABETES MELLITUS per A.D.A. criteria. Potassium [Moles/Vol] 5.0 mmol/L 3.5-5.1 [facility] Sodium [Moles/Vol] 138 mmol/L 136-145 [facility] Laboratory - Chemistry and C hemistry - challengeOrdered By: Dr. Poe on 07-24-2022 CO2 [Moles/Vol] 28.0 mmol/L 21.0-32.0 [facility] Urea nitrogen/Creatinine [Mass ratio] 23.6 mg/mg 10-20 [facility] No Panel InformationOrdered By: Dr. Poe on 07-24-2022 Estimated GFR (MDRD) Amer 32 mL/min >60 [facility] Comment on above: GFR Calc Estimated GFR (MDRD) Non-Af Amer 26 mL/min >60 [facility] Comment on above: Non- GFR Calc Serum or plasma calcium cecily urement (mass/volume)Ordered By: Dr. Poe on 07-24-2022 Calcium [Mass/Vol] 9.2 mg/dL 8.5-10.1 [facility] Serum or plasma creatinine m easurement (mass/volume)Ordered By: Dr. Poe on 07-24-2022 Creatinine [Mass/Vol] 2.54 mg/dL 0.70-1.30 [facility] Comment on above: The validity of the calculated GFR & GFRAA in patients over 70 years has not been determined. Clinical correlation is essential. Serum or plasma urea nitroge n measurement (mass/volume)Ordered By: Dr. Poe on 07-24-2022 Urea nitrogen [Mass/Vol] 60 mg/dL 7-18 [facility] Thin prep Papanicolaou smear with manual screeningOrdered By: Dr. Poe on 07-24-2022 Thin prep Papanicolaou smear with manual screening 6 5-15 [facility] Urine creatinine measurement (mass/volume)Ordered By: Dr. Poe on 07-24-2022 Creatinine (U) [Mass/Vol] 209.00 mg/dL NO RANGE EST. [facility] Urine protein measurement (m ass/volume)Ordered By: Dr. Poe on 07-24-2022 Protein (U) [Mass/Vol] 31.4 mg/dL 0.0-11.8 [facility] Urine protein/creatinine mas s ratioOrdered By: Dr. Poe on 07-24-2022 Protein/Creatinine (U) [Mass ratio] 150 mg/g CRE 0-200 [facility] Laboratory - Hematology and Cell countson 05-29-2022 HbA1c (Bld) [Mass fraction] 8.6 % 4.2-6.3 [facility] Basophil percentageOrdered B y: Dr. Schreiber on 05-24-2022 Chloride [Moles/Vol] 108 mmol/L 98-107 [facility] Glucose [Mass/Vol] 222 mg/dL 74-106 [facility] Comment on above: Glucose result great er than or equal to 200 mg/dLsuggests DIABETES MELLITUS per A.D.A. criteria. Potassium [Moles/Vol] 4.9 mmol/L 3.5-5.1 [facility] Sodium [Moles/Vol] 138 mmol/L 136-145 [facility] Laboratory - Chemistry and C hemistry - challengeOrdered By: Dr. Schreiber on 05-24-2022 CO2 [Moles/Vol] 23.0 mmol/L 21.0-32.0 [facility] Urea nitrogen/Creatinine [Mass ratio] 15.7 mg/mg 10-20 [facility] No Panel InformationOrdered By: Dr. Schreiber on 05-24-2022 Estimated GFR (MDRD) Amer 33 mL/min >60 [facility] Comment on above: GFR Calc Estimated GFR (MDRD) Non-Af Amer 27 mL/min >60 [facility] Comment on above: Non- GFR Calc Serum or plasma calcium cecily urement (mass/volume)Ordered By: Dr. Schreiber on 05-24-2022 Calcium [Mass/Vol] 9.1 mg/dL 8.5-10.1 [facility] Serum or plasma creatinine m easurement (mass/volume)Ordered By: Dr. Schreiber on 05-24-2022 Creatinine [Mass/Vol] 2.48 mg/dL 0.70-1.30 [facility] Comment on above: The validity of the calculated GFR & GFRAA in patients over 70 years has not been determined. Clinical correlation is essential. Serum or plasma urea nitroge n measurement (mass/volume)Ordered By: Dr. Schreiber on 05-24-2022 Urea nitrogen [Mass/Vol] 39 mg/dL 7-18 [facility] Thin prep Papanicolaou smear with manual screeningOrdered By: Dr. Schreiber on 05-24-2022 Thin prep Papanicolaou smear with manual screening 7 5-15 [facility] Whole blood hemoglobin A1c/t otal hemoglobin ratio (mass fraction)Ordered By: Dr. Schreiber on 05-24-2022 HbA1c (Bld) [Mass fraction] 8.6 % 3.8-5.6 [facility] Comment on above: Normal < 5.7 % Predi abetic 5.7 - 6.4 % Diabetic >or= 6.5 % Please note range changes. Basophil percentageOrdered B y: Dr. Schreiber on 04-11-2022 Chloride [Moles/Vol] 107 mmol/L 98-107 [facility] Glucose [Mass/Vol] 171 mg/dL 74-106 [facility] Comment on above: Fasting Glucose resu lt greater than or equal to 126 mg/dL suggests DIABETES MELLITUS per A.D.A. criteria. Potassium [Moles/Vol] 4.7 mmol/L 3.5-5.1 [facility] Sodium [Moles/Vol] 141 mmol/L 136-145 [facility] Laboratory - Chemistry and C hemistry - challengeOrdered By: Dr. Schreiber on 04-11-2022 CO2 [Moles/Vol] 24.0 mmol/L 21.0-32.0 [facility] Urea nitrogen/Creatinine [Mass ratio] 12.6 mg/mg 10-20 [facility] No Panel InformationOrdered By: Dr. Schreiber on 04-11-2022 Estimated GFR (MDRD) Amer 36 mL/min >60 [facility] Comment on above: GFR Calc Estimated GFR (MDRD) Non-Af Amer 30 mL/min >60 [facility] Comment on above: Non- GFR Calc Serum or plasma calcium cecily urement (mass/volume)Ordered By: Dr. Schreiber on 04-11-2022 Calcium [Mass/Vol] 8.9 mg/dL 8.5-10.1 [facility] Serum or plasma creatinine m easurement (mass/volume)Ordered By: Dr. Schreiber on 04-11-2022 Creatinine [Mass/Vol] 2.30 mg/dL 0.70-1.30 [facility] Comment on above: The validity of the calculated GFR & GFRAA in patients over 70 years has not been determined. Clinical correlation is essential. Serum or plasma urea nitroge n measurement (mass/volume)Ordered By: Dr. Schreiber on 04-11-2022 Urea nitrogen [Mass/Vol] 29 mg/dL 7-18 [facility] Thin prep Papanicolaou smear with manual screeningOrdered By: Dr. Schreiber on 04-11-2022 Thin prep Papanicolaou smear with manual screening 10 5-15 [facility] Basophil percentageon 2021 Chloride [Moles/Vol] 110 mmol/L 98-107 [facility] Work Phone: Glucose [Mass/Vol] 173 mg/dL 74-106 [facility] Work Phone: Comment on above: Fasting Glucose resu lt greater than or equal to 126 mg/dL suggests DIABETES MELLITUS per A.D.A. criteria. Potassium [Moles/Vol] 4.8 mmol/L 3.5-5.1 [facility] Work Phone: Sodium [Moles/Vol] 139 mmol/L 136-145 [facility] Work Phone: Laboratory - Chemistry and C hemistry - challengeon 03-19-2022 CO2 [Moles/Vol] 20.0 mmol/L 21.0-32.0 [facility] Work Phone: Urea nitrogen/Creatinine [Mass ratio] 16.0 mg/mg 10-20 [facility] Work Phone: No Panel Informationon 03-19 Estimated GFR (MDRD) Amer 30 mL/min >60 [facility] Work Phone: Comment on above: GFR Calc Estimated GFR (MDRD) Non-Af Amer 25 mL/min >60 [facility] Work Phone: Comment on above: Non- GFR Calc Serum or plasma calcium cecily urement (mass/volume)on 03-19-2022 Calcium [Mass/Vol] 9.4 mg/dL 8.5-10.1 [facility] Work Phone: Serum or plasma creatinine m easurement (mass/volume)on 03-19-2022 Creatinine [Mass/Vol] 2.68 mg/dL 0.70-1.30 [facility] Work Phone: Comment on above: The validity of the calculated GFR & GFRAA in patients over 70 years has not been determined. Clinical correlation is essential. Serum or plasma urea nitroge n measurement (mass/volume)on 03-19-2022 Urea nitrogen [Mass/Vol] 43 mg/dL 7-18 [facility] Work Phone: Thin prep Papanicolaou smear with manual screeningon 03-19-2022 Thin prep Papanicolaou smear with manual screening 9 5-15 [facility] Work Phone: Laboratory - Hematology and Cell countson 02-19-2022 HbA1c (Bld) [Mass fraction] 6.8 % 4.2-6.3 [facility] Work Phone: No Panel Informationon 01-23 Prostate Specific Antigen Total 9.50 ng/mL 0.0-4.0 [facility] Work Phone: Comment on above: This test was perfor med using the TPSA assay method for [facility] chemistry system. Values obtained with differentassay methods cannot be used interchangably.When changing PSA assays in the course of monitoring apatient, additional sequential testing should be carriedout to confirm baseline values. Basophil percentageon 2021 Chloride [Moles/Vol] 108 mmol/L 98-107 [facility] Work Phone: Glucose [Mass/Vol] 175 mg/dL 74-106 [facility] Work Phone: Comment on above: Fasting Glucose resu lt greater than or equal to 126 mg/dL suggests DIABETES MELLITUS per A.D.A. criteria. Potassium [Moles/Vol] 4.9 mmol/L 3.5-5.1 [facility] Work Phone: Sodium [Moles/Vol] 138 mmol/L 136-145 [facility] Work Phone: Laboratory - Chemistry and C hemistry - challengeon 12-17-2021 CO2 [Moles/Vol] 23.0 mmol/L 21.0-32.0 [facility] Work Phone: Urea nitrogen/Creatinine [Mass ratio] 14.7 mg/mg 10-20 [facility] Work Phone: No Panel Informationon 12-17 Estimated GFR (MDRD) Amer 43 mL/min >60 [facility] Work Phone: Comment on above: GFR Calc Estimated GFR (MDRD) Non-Af Amer 35 mL/min >60 [facility] Work Phone: Comment on above: Non- GFR Calc Vitamin D 25-Hydroxy 30.3 ng/mL [facility] Work Phone: Comment on above: Vitamin D 25(OH) Sta tus Range Deficiency <20 ng/mL (50nmol/L) Insufficiency 20 - 30 ng/mL (50 - 75 nmol/L) Sufficiency 30 - 100 ng/mL (75 - 250 nmol/L) Toxicity >100 ng/mL (>250 nmol/L) Serum or plasma calcium cecily urement (mass/volume)on 12-17-2021 Calcium [Mass/Vol] 8.6 mg/dL 8.5-10.1 [facility] Work Phone: Serum or plasma creatinine m easurement (mass/volume)on 12-17-2021 Creatinine [Mass/Vol] 1.97 mg/dL 0.70-1.30 [facility] Work Phone: Comment on above: The validity of the calculated GFR & GFRAA in patients over 70 years has not been determined. Clinical correlation is essential. Serum or plasma urea nitroge n measurement (mass/volume)on 12-17-2021 Urea nitrogen [Mass/Vol] 29 mg/dL 7-18 [facility] Work Phone: Thin prep Papanicolaou smear with manual screeningon 12-17-2021 Thin prep Papanicolaou smear with manual screening 7 5-15 [facility] Work Phone: Urine creatinine measurement (mass/volume)on 12-17-2021 Creatinine (U) [Mass/Vol] 197.00 mg/dL NO RANGE EST. [facility] Work Phone: Urine protein measurement (m ass/volume)on 12-17-2021 Protein (U) [Mass/Vol] 100.8 mg/dL 0.0-11.8 [facility] Work Phone: Urine protein/creatinine mas s ratioon 12-17-2021 Protein/Creatinine (U) [Mass ratio] 512 mg/g CRE 0-200 [facility] Work Phone: Laboratory - Hematology and Cell countson 11-19-2021 HbA1c (Bld) [Mass fraction] 7.1 % 4.2-6.3 [facility] Work Phone: HgA1C , Office ([id number])Ordere d By: Lola Marco on 11-16-2018 HbA1c (Bld) [Mass fraction] 5.8 % Normal 4.6 - 7.1 [facility] Work Phone: CBC W/AUTO DIFF WBC ([id number])O rdered By: Grid Operator on 11-11-2018 Basophils (Bld) [#/Vol] 0.0 {x10E3/uL} Normal 0.0-0.2 [facility] Work Phone: Comment on above: PATIENT WAS FASTINGP ERFORMED BY: CB [facility] Dozzeb[address] Therapeutic SystemsDublin [place] [id number]; appt 5/6 Basophils/100 WBC (Bld) 0 % Normal [facility] Work Phone: Comment on above: PATIENT WAS FASTINGP ERFORMED BY: CB [facility] Klvyaq3315 [address] RoadDublin [place] [id number]; appt 5/6 Eosinophils (Bld) [#/Vol] 0.4 {x10E3/uL} Normal 0.0-0.4 [facility] Work Phone: Comment on above: PATIENT WAS FASTINGP ERFORMED BY: CB [facility] Pokoxl94[address] RoadDublin [place] [id number]; appt 5/6 Eosinophils/100 WBC (Bld) 6 % Normal [facility] Work Phone: Comment on above: PATIENT WAS FASTINGP ERFORMED BY: CB [facility] Spbidb0[address] Therapeutic SystemsDublin [place] [id number]; appt 5/6 Erythrocyte distribution width (RBC) [Ratio] 15.5 % Abnormal 12.3-15.4 [facility] Work Phone: Comment on above: PATIENT WAS FASTINGP ERFORMED BY: CB [facility] Kainpc6087 [address] RoadDublin [place] [id number]; appt 5/6 Hematocrit (Bld) [Volume fraction] 48.1 % Normal 37.5-51.0 [facility] Work Phone: Comment on above: PATIENT WAS FASTINGP ERFORMED BY: [facility] Tzsjky77[address] RoadDublin [place] [id number]; appt 5/6 Hemoglobin (Bld) [Mass/Vol] 15.1 g/dL Normal 13.0-17.7 [facility] Work Phone: Comment on above: PATIENT WAS FASTINGP ERFORMED BY: CB [facility] Kbzzvv2302 [address] RoadDublin [place] [id number]; appt 5/6 Immature granulocytes (Bld) [#/Vol] 0.0 {x10E3/uL} Normal 0.0-0.1 [facility] Work Phone: Comment on above: PATIENT WAS FASTINGP ERFORMED BY: [facility] Ghehll56[address] RoadDublin [place] [id number]; appt 5/6 Immature granulocytes/100 WBC (Bld) 0 % Normal [facility] Work Phone: Comment on above: PATIENT WAS FASTINGP ERFORMED BY: [facility] Obctym09[address] RoadDublin [place] [id number]; appt 5/6 Lymphocytes (Bld) [#/Vol] 1.5 {x10E3/uL} Normal 0.7-3.1 [facility] Work Phone: Comment on above: PATIENT WAS FASTINGP ERFORMED BY: [facility] Ywcdsa38[address] RoadDublin [place] [id number]; appt 5/6 Lymphocytes/100 WBC (Bld) 20 % Normal [facility] Work Phone: Comment on above: PATIENT WAS FASTINGP ERFORMED BY: [facility] Xdbuaa3870 [address] RoadDublin [place] [id number]; appt 5/6 MCH (RBC) [Entitic mass] 27.4 pg Normal 26.6-33.0 [facility] Work Phone: Comment on above: PATIENT WAS FASTINGP ERFORMED BY: [facility] Zxksqw60[address] RoadDublin [place] [id number]; appt 5/6 MCHC (RBC) [Mass/Vol] 31.4 g/dL Abnormal 31.5-35.7 [facility] prehensive Internal Medicine Work Phone: Comment on above: PATIENT WAS FASTINGP ERFORMED BY: KEVIN [facility] Xwvfpi5990 [address] RoadDublin [place] [id number]; appt 5/6 MCV (RBC) [Entitic vol] 87 fL Normal 79-97 [facility] Work Phone: Comment on above: PATIENT WAS FASTINGP ERFORMED BY: KEVIN [facility] Iabcim29[address] RoadDublin [place] [id number]; appt 5/6 Monocytes (Bld) [#/Vol] 0.7 {x10E3/uL} Normal 0.1-0.9 [facility] Work Phone: Comment on above: PATIENT WAS FASTINGP ERFORMED BY: KEVIN [facility] Gypxqj3436 [address] RoadAtrium Health Kannapolisin [place] [id number]; appt 5/6 Monocytes/100 WBC (Bld) 9 % Normal [facility] Work Phone: Comment on above: PATIENT WAS FASTINGP ERFORMED BY: KEVIN [facility] Hzxxks[address] [facility]in [place] [id number]; appt 5/6 Neutrophils (Bld) [#/Vol] 4.7 {x10E3/uL} Normal 1.4-7.0 [facility] Work Phone: Comment on above: PATIENT WAS FASTINGP ERFORMED BY: KEVIN [facility] Weefnf[address] [facility]in [place] [id number]; appt 5/6 Neutrophils/100 WBC (Bld) 65 % Normal [facility] Work Phone: Comment on above: PATIENT WAS FASTINGP ERFORMED BY: [facility] Gpevjr[address] [facility]bl[facility] [place] [id number]; appt 5/6 Platelets (Bld) [#/Vol] 152 {x10E3/uL} Normal 150-379 [facility] Work Phone: Comment on above: PATIENT WAS FASTINGP ERFORMED BY: KEVIN [facility] Nopulm13[address] RoadDublin [place] [id number]; appt / RBC (Bld) [#/Vol] 5.51 {x10E6/uL} Normal 4.14-5.80 [facility] Work Phone: Comment on above: PATIENT WAS FASTINGP ERFORMED BY: KEVIN [facility] Hcblxo5275 [address] RoadDublin [place] [id number]; appt / WBC (Bld) [#/Vol] 7.3 {x10E3/uL} Normal 3.4-10.8 [facility] Work Phone: Comment on above: PATIENT WAS FASTINGP ERFORMED BY: KEVIN LabAlcides NathTbxjfg6191 [address] RoadDublin [place] [id number]; appt 11/16 METABOLIC PANEL, COMPREHENSI VE ([id number])Ordered By: Grid Operator on 11-11-2018 Albumin [Mass/Vol] 4.4 g/dL Normal 3.5-4.8 [facility] Work Phone: Comment on above: PATIENT WAS FASTINGP ERFORMED BY: KEVIN LabCogina Unalnb1152 [address] RoadDublin [place] [id number] Albumin/Globulin [Mass ratio] 1.5 {ratio} Normal 1.2-2.2 [facility] Work Phone: Comment on above: PATIENT WAS FASTINGP ERFORMED BY: KEVIN [facility] Tpkmoe6924 [address] RoadDublin [place] [id number] ALP [Catalytic activity/Vol] 77 [iU]/L Normal 39-117 [facility] Work Phone: Comment on above: PATIENT WAS FASTINGP ERFORMED BY: KEVIN [facility] Axykyr550[address] RoadDublin [place] [id number] ALT [Catalytic activity/Vol] 16 [iU]/L Normal 0-44 [facility] Work Phone: Comment on above: PATIENT WAS FASTINGP ERFORMED BY: KEVIN [facility] Rmmulk77[address] RoadDublin [place] [id number] AST [Catalytic activity/Vol] 20 [iU]/L Normal 0-40 [facility] Work Phone: Comment on above: PATIENT WAS FASTINGP ERFORMED BY: CB [facility] Tiguwd2818 [address] RoadDublin [place] [id number] Bilirubin [Mass/Vol] 0.5 mg/dL Normal 0.0-1.2 [facility] Work Phone: Comment on above: PATIENT WAS FASTINGP ERFORMED BY: CB [facility] Lpngxk6136 [address] RoadDublin [place] [id number] Calcium [Mass/Vol] 9.3 mg/dL Normal 8.6-10.2 [facility] Work Phone: Comment on above: PATIENT WAS FASTINGP ERFORMED BY: CB [facility] Tjzaop0974 [address] RoadDublin [place] [id number] Chloride [Moles/Vol] 103 mmol/L Normal 96-106 [facility] Work Phone: Comment on above: PATIENT WAS FASTINGP ERFORMED BY: [facility] Lhutle5[address] RoadDublin [place] [id number] CO2 [Moles/Vol] 20 mmol/L Normal 20-29 [facility] Work Phone: Comment on above: PATIENT WAS FASTINGP ERFORMED BY: [facility] Closhd7192 [address] RoadDublin [place] [id number] Creatinine [Mass/Vol] 1.86 mg/dL Abnormal 0.76-1.27 [facility] Work Phone: Comment on above: PATIENT WAS FASTINGP ERFORMED BY: CB [facility] Rpwuzo1345 [address] RoadDublin [place] [id number] GFR/1.73 sq M predicted among blacks CKD-EPI (S/P/Bld) [Vol rate/Area] 41 mL/min/1.73 Abnormal [facility] Work Phone: Comment on above: PATIENT WAS FASTINGP ERFORMED BY: CB [facility] Ajvjsw4746 [address] RoadDublin [place] [id number] GFR/1.73 sq M predicted among non-blacks CKD-EPI (S/P/Bld) [Vol rate/Area] 35 mL/min/1.73 Abnormal [facility] Work Phone: Comment on above: PATIENT WAS FASTINGP ERFORMED BY: KEVIN [facility] Zhubkg9927 [address] RoadDublin [place] [id number] Globulin (S) [Mass/Vol] 3.0 g/dL Normal 1.5-4.5 [facility] Work Phone: Comment on above: PATIENT WAS FASTINGP ERFORMED BY: KEVIN [facility] Moaonb1218 [address] RoadDublin [place] [id number] Glucose [Mass/Vol] 107 mg/dL Abnormal 65-99 [facility] Work Phone: Comment on above: PATIENT WAS FASTINGP ERFORMED BY: KEVIN [facility] Gyvfga6056 [address] RoadDublin [place] [id number] Potassium [Moles/Vol] 4.7 mmol/L Normal 3.5-5.2 [facility] Work Phone: Comment on above: PATIENT WAS FASTINGP ERFORMED BY: KEVIN [facility] Jsbjzj5[address] RoadDublin [place] [id number] Protein [Mass/Vol] 7.4 g/dL Normal 6.0-8.5 [facility] Work Phone: Comment on above: PATIENT WAS FASTINGP ERFORMED BY: [facility] Wtmcwi7930 [address] RoadDublin [place] [id number] Sodium [Moles/Vol] 142 mmol/L Normal 134-144 [facility] Work Phone: Comment on above: PATIENT WAS FASTINGP ERFORMED BY: KEVIN [facility] Yadsfb0405 [address] RoadDublin [place] [id number] Urea nitrogen [Mass/Vol] 31 mg/dL Abnormal 8-27 [facility] Work Phone: Comment on above: PATIENT WAS FASTINGP ERFORMED BY: KEVIN [facility] Rfazpu7262 [address] RoadDublin [place] [id number] Urea nitrogen/Creatinine [Mass ratio] 17 mg/mg Normal 10-24 [facility] Work Phone: Comment on above: PATIENT WAS FASTINGP ERFORMED BY: KEVIN Haji6[address] RoadDublin [place] [id number] MICROALBUMINOrdered By: Syst em Department Director on 11-11-2018 Albumin DL <= 20 mg/L (U) [Mass/Vol] 515.3 ug/mL Normal [facility] Work Phone: Comment on above: Results confirmed on dilution. PATIENT WAS FASTINGP ERFORMED BY: KEVIN Haji6[address] RoadDublin [place] [id number] Albumin/Creatinine (U) [Mass ratio] 495.0 {mg/g_creat} Abnormal 0.0-30.0 [facility] Work Phone: Comment on above: Normal: 0.0 - 30.0 A lbuminuria: 31.0 - 300.0 Clinical albuminuria: >300.0 PATIENT WAS FASTINGP ERFORMED BY: KEVIN Nathlin[address] Therapeutic SystemsDublin [place] [id number] Creatinine (U) [Mass/Vol] 104.1 mg/dL Normal [facility] Work Phone: Comment on above: PATIENT WAS FASTINGP ERFORMED BY: KEVIN Haji6[address] [place] [id number] URINALYSIS, W/ MICRO ([id number]) Ordered By: Grid Operator on 11-11-2018 Appearance (U) Clear Normal Comprehens kevin [facility] Work Phone: Comment on above: PATIENT WAS FASTINGP ERFORMED BY: KEVIN Nathlin[address] [place] [id number] Bilirubin Ql (U) Negative Normal Comprehe nsive [facility] Medicine Work Phone: Comment on above: PATIENT WAS FASTINGP ERFORMED BY: KEVIN Nathlin[address] RoadDublin [place] [id number] Color (U) Yellow Normal [facility] Work Phone: Comment on above: PATIENT WAS FASTINGP ERFORMED BY: KEVIN Haji[address] [facility] [id number] Glucose Ql (U) 3+ Abnormal Comprehens kevin [facility] Work Phone: Comment on above: PATIENT WAS FASTINGP ERFORMED BY: KEVIN Nathlin[address] [facility] [id number] Hemoglobin Ql (U) Negative Normal Compreh ensive [facility] Work Phone: Comment on above: PATIENT WAS FASTINGP ERFORMED BY: KEVIN Nathlin[address] [facility] [id number] Ketones Ql (U) Negative Normal Comprehens ke[facility] Work Phone: Comment on above: PATIENT WAS FASTINGP ERFORMED BY: KEVIN Nathlin6370 [facility] [id number] Leukocyte esterase Test strip Ql (U) Negative Normal [facility] Work Phone: Comment on above: PATIENT WAS FASTINGP ERFORMED BY: KEVIN Nathlin6370 [facility] [id number] Microscopic observation LM Nom (Urine sed) See below: Normal [facility] Work Phone: Comment on above: Microscopic was sailaja cated and was performed. PATIENT WAS FASTINGP ERFORMED BY: KEVIN Nathlin6370 [facility] [id number] Nitrite Ql (U) Negative Normal Comprehens [facility] Work Phone: Comment on above: PATIENT WAS FASTINGP ERFORMED BY: KEVIN Nathlin6370 [facility] [id number] pH (U) 5.5 [pH] Normal 5.0-7.5 [facility] Work Phone: Comment on above: PATIENT WAS FASTINGP ERFORMED BY: KEVIN Nathlin[address] [facility] [id number] Protein Ql (U) 2+ Abnormal Comprehens ke[facility] Work Phone: Comment on above: PATIENT WAS FASTINGP ERFORMED BY: KEVIN Nathlin6370 [facility] [id number] Specific gravity (U) [Rel density] 1.024 1 Normal 1.005-1.03 0 [facility] Work Phone: Comment on above: PATIENT WAS FASTINGP ERFORMED BY: [facility]ageCore[facility]6370 [facility] [id number] Urobilinogen Test strip (U) [Mass/Vol] 0.2 mg/dL Normal 0.2-1.0 Comprehensi [facility] Work Phone: Comment on above: PATIENT WAS FASTINGP ERFORMED BY: [facility]ageCore[facility]6370 [facility] [id number] PSA, TOTAL - DIAGNOSTIC ([id number])Ordered By: Grid Operator on 10-23-2018 Prostate specific Ag [Mass/Vol] 4.1 ng/mL Abnormal 0.0-4.0 [facility] Work Phone: Comment on above: [facility] ECLIA methodol ogy. .According to the [place] [employer], Serum PSA shoulddecrease and remain at undetectable levels after radicalprostatectomy. The AUA defines biochemical recurrence as an initialPSA value 0.2 ng/mL or greater followed by a subsequent confirmatoryPSA value 0.2 ng/mL or greater.Values obtained with different assay methods or kits cannot be usedinterchangeably. Results cannot be interpreted as absolute evidenceof the presence or absence of malignant disease. A courtesy copy of t his report has been sent [phone].PATIENT NOT FASTINGPERFORMED BY: [facility] BeverageCorewell [facility]6370 [facility] [id number] Information: DR. GTZ [phone] METABOLIC PANEL, BASIC ([phone] [id number])Ordered By: Grid Operator on 09-15-2018 Calcium mass conc 9.5 mg/dL Normal 8.6-10.2 Compreh ensive [facility] Work Phone: Comment on above: PATIENT NOT FASTINGP ERFORMED BY: [facility] BeverageCore[facility]6370 [facility] [id number] Chloride molar conc 102 mmol/L Normal 96-106 Compr ehensive [facility] Work Phone: Comment on above: PATIENT NOT FASTINGP ERFORMED BY: CB [facility] Ftdvji3842 [address] RoadDublin [place] [id number] CO2 molar conc 21 mmol/L Normal 20-29 Comprehens kevin [facility] Work Phone: Comment on above: PATIENT NOT FASTINGP ERFORMED BY: CB [facility] Roeaxh87[address] Roadblin [place] [id number] Creatinine mass conc 1.69 mg/dL Abnormal 0.76-1.27 Comp rehensive [facility] Work Phone: Comment on above: PATIENT NOT FASTINGP ERFORMED BY: CB [facility] Lbaxyc7[address] RoadAtrium Health Kannapolisin [place] [id number] GFR/1.73 sq M predicted among blacks CKD-EPI vol rate/area (S/P/Bld) 46 mL/min/1.73 Abnormal Comprehensiv e [facility] Work Phone: Comment on above: PATIENT NOT FASTINGP ERFORMED BY: CB [facility] Cidznq3157 [address] RoadAtrium Health [place]apolisin [place] [id number] GFR/1.73 sq M predicted among non-blacks CKD-EPI vol rate/area (S/P/Bld) 39 mL/min/1.73 Abnormal [facility] Work Phone: Comment on above: PATIENT NOT FASTINGP ERFORMED BY: CB [facility] Htbdvh[address] [facility]in [place] [id number] Glucose mass conc 97 mg/dL Normal 65-99 Compreh ensive [facility] Work Phone: Comment on above: PATIENT NOT FASTINGP ERFORMED BY: CB [facility] Rclyng67[address] [facility]in [place] [id number] Potassium molar conc 5.0 mmol/L Normal 3.5-5.2 Comp rehensive [facility] Medicine Work Phone: Comment on above: PATIENT NOT FASTINGP ERFORMED BY: CB [facility] Tapzfx9247 [address] RoadAtrium Health [place]apolisin [place] [id number] Sodium molar conc 143 mmol/L Normal 134-144 Compreh ensive [facility] Work Phone: Comment on above: PATIENT NOT FASTINGP ERFORMED BY: CB [facility] Vrykbg0739 [address] RoadDublin [place] [id number] Urea nitrogen mass conc 28 mg/dL Abnormal 8-27 [facility] Work Phone: Comment on above: PATIENT NOT FASTINGP ERFORMED BY: CB [facility] Tnzhuh[address] [facility] [place] [id number] Urea nitrogen/Creatinine mass ratio 17 mg/mg Normal 10-24 [facility] Work Phone: Comment on above: PATIENT NOT FASTINGP ERFORMED BY: CB [facility] Ufvekr[address] [facility]bl[facility] [place] [id number] URINE JULIANA CULTURE-IDENTIFICA [place] ([id number])Ordered By: Grid Operator on 08-24-2018 Bacteria identified Cx Nom (U) NG36 Normal [facility] Work Phone: Comment on above: No growth in 36 - 48 hours. PATIENT NOT FASTINGP ERFORMED BY: CB [facility] Ijeldq[address] [facility] [id number] Information: SRC: Bacteria identified Cx Nom (U) Final report Normal [facility] Work Phone: Comment on above: PATIENT NOT FASTINGP ERFORMED BY: CB [facility] Wprxfq[address] [facility]in [place] [id number] Information: SRC:HENNA Urinalysis, Office ([id number])Or dered By: Arabella Davis on 08-24-2018 Bilirubin Ql (U) Negative Normal Comprehe nsive [facility] Work Phone: Glucose Test strip mass conc (U) Negative Normal [facility] Work Phone: Hemoglobin Ql (U) + Abnormal Compreh ensive [facility] Work Phone: Ketones Ql (U) Negative Normal Comprehens kevin [facility] Work Phone: Leukocyte esterase Test strip Ql (U) Negative Normal [facility] Work Phone: Nitrite Ql (U) Negative Normal Comprehens kevin [facility] Work Phone: pH (U) 5 [pH] Abnormal [facility] Work Phone: Protein Ql (U) ++ Abnormal Comprehens kevin [facility] Work Phone: Specific gravity Relative Density (U) 1.030 1 Abnormal Comprehensi ve [facility] Medicine Work Phone: Urobilinogen mass/time (24H U) Normal Normal [facility] Work Phone: CBC with auto diff ([id number])Or dered By: Grid Operator on 08-20-2018 Basophils (Bld) [#/Vol] 0.0 {x10E3/uL} Normal 0.0-0.2 [facility] Work Phone: Comment on above: PATIENT WAS FASTINGP ERFORMED BY: KEVIN ShareThein [place] [id number] Basophils/100 WBC (Bld) 0 % Normal [facility] Work Phone: Comment on above: PATIENT WAS FASTINGP ERFORMED BY: [email or web address] [employer]in [place] [id number] Eosinophils (Bld) [#/Vol] 0.2 {x10E3/uL} Normal 0.0-0.4 [facility] Work Phone: Comment on above: PATIENT WAS FASTINGP ERFORMED BY: [email or web address] [employer] P[employer] Gamesblin [place] [id number] Eosinophils/100 WBC (Bld) 3 % Normal [facility] Work Phone: Comment on above: PATIENT WAS FASTINGP ERFORMED BY: [email or web address] [employer]in [place] [id number] Erythrocyte distribution width (RBC) [Ratio] 16.1 % Abnormal 12.3-15.4 [facility] Work Phone: Comment on above: PATIENT WAS FASTINGP ERFORMED BY: [email or web address] [employer]in [place] [id number] Hematocrit (Bld) [Volume fraction] 45.7 % Normal 37.5-51.0 [facility] Work Phone: Comment on above: PATIENT WAS FASTINGP ERFORMED BY: KEVIN Haji[address] RoadD[address] [place] [id number] Hemoglobin (Bld) [Mass/Vol] 14.5 g/dL Normal 13.0-17.7 [facility] Work Phone: Comment on above: PATIENT WAS FASTINGP ERFORMED BY: KEVIN Nathlin[address] [place] [id number] Immature granulocytes (Bld) [#/Vol] 0.0 {x10E3/uL} Normal 0.0-0.1 [facility] Work Phone: Comment on above: PATIENT WAS FASTINGP ERFORMED BY: KEVIN Haji[address] RoadAtrium Health [place]apolisin [place] [id number] Immature granulocytes/100 WBC (Bld) 0 % Normal [facility] Work Phone: Comment on above: PATIENT WAS FASTINGP ERFORMED BY: KEVIN Haji[address] [facility] [id number] Lymphocytes (Bld) [#/Vol] 1.6 {x10E3/uL} Normal 0.7-3.1 [facility] Work Phone: Comment on above: PATIENT WAS FASTINGP ERFORMED BY: KEVIN Haji[address] [facility] [place] [id number] Lymphocytes/100 WBC (Bld) 28 % Normal [facility] Work Phone: Comment on above: PATIENT WAS FASTINGP ERFORMED BY: KEVIN Haji[address] [facility] [place] [id number] MCH (RBC) [Entitic mass] 27.6 pg Normal 26.6-33.0 [facility] Work Phone: Comment on above: PATIENT WAS FASTINGP ERFORMED BY: KEVIN Nathlin[address] [facility] [place] [id number] MCHC (RBC) [Mass/Vol] 31.7 g/dL Normal 31.5-35.7 [facility] prehensive Internal Medicine Work Phone: Comment on above: PATIENT WAS FASTINGP ERFORMED BY: KEVIN AnsariAlcides Haji[address]Dublin [place] [id number] MCV (RBC) [Entitic vol] 87 fL Normal 79-97 [facility] Work Phone: Comment on above: PATIENT WAS FASTINGP ERFORMED BY: KEVIN LabAlcides Haji[address] [place] [id number] Monocytes (Bld) [#/Vol] 0.5 {x10E3/uL} Normal 0.1-0.9 [facility] Work Phone: Comment on above: PATIENT WAS FASTINGP ERFORMED BY: KEVIN LabAlcides NathVovpbc9577 [address] RoadDublin [place] [id number] Monocytes/100 WBC (Bld) 8 % Normal [facility] Work Phone: Comment on above: PATIENT WAS FASTINGP ERFORMED BY: KEVIN Nathlin[address] [place] [id number] Neutrophils (Bld) [#/Vol] 3.5 {x10E3/uL} Normal 1.4-7.0 [facility] Work Phone: Comment on above: PATIENT WAS FASTINGP ERFORMED BY: KEVIN Haji[address] [place] [id number] Neutrophils/100 WBC (Bld) 61 % Normal [facility] Work Phone: Comment on above: PATIENT WAS FASTINGP ERFORMED BY: KEVIN Nathlin[address] [place] [id number] Platelets (Bld) [#/Vol] 119 {x10E3/uL} Abnormal 150-379 [facility] Work Phone: Comment on above: PATIENT WAS FASTINGP ERFORMED BY: KEVIN LabAlcides NathSgbsag0675 [address] [place] [id number] RBC (Bld) [#/Vol] 5.26 {x10E6/uL} Normal 4.14-5.80 [facility] Work Phone: Comment on above: PATIENT WAS FASTINGP ERFORMED BY: KEVIN LabCogina NathXpohlu12[address]Dublin [place] [id number] WBC (Bld) [#/Vol] 5.8 {x10E3/uL} Normal 3.4-10.8 [facility] Internal Medicine Work Phone: Comment on above: PATIENT WAS FASTINGP ERFORMED BY: KEVIN LabAlcides NathUmzkdk3452 [facility] [id number] HGB A1C ([id number])Ordered By: S ystem Department Director on 08-20-2018 HbA1c (Bld) [Mass fraction] 6.7 % Abnormal 4.8-5.6 [facility] Work Phone: Comment on above: . Prediabetes: 5.7 - 6.4 Diabetes: >6.4 Glycemic control for adults with diabetes: <7.0 PATIENT WAS FASTINGP ERFORMED BY: KEVIN LabAlcides NathNlooej6544 [facility] [id number] LIPID PANEL ([id number])Ordered B y: Grid Operator on 08-20-2018 Cholesterol [Mass/Vol] 131 mg/dL Normal 100-199 [facility] Work Phone: Comment on above: PATIENT WAS FASTINGP ERFORMED BY: KEVIN LabAlcides NathIyyovq1591 [facility] [id number] Cholesterol in HDL [Mass/Vol] 31 mg/dL Abnormal [facility] Work Phone: Comment on above: PATIENT WAS FASTINGP ERFORMED BY: KEVIN LabAlcides NathNnjlgq2062 [facility] [id number] Cholesterol in LDL [Mass/Vol] 46 mg/dL Normal 0-99 [facility] Work Phone: Comment on above: PATIENT WAS FASTINGP ERFORMED BY: KEVIN LabCo Zydafh0700 [facility] [id number] Cholesterol in LDL/Cholesterol in HDL [Mass ratio] 1.5 {ratio} Normal 0.0-3.6 [facility] Work Phone: Comment on above: LDL/HDL Ratio Men Wo men 1/2 Avg.Risk 1.0 1.5 Avg.Risk 3.6 3.2 2X Avg.Risk 6.2 5.0 3X Avg.Risk 8.0 6.1 PATIENT WAS FASTINGP ERFORMED BY: KEVIN LabCogina Vorypc5583 [address] RoadDublin [place] [id number] Cholesterol in VLDL [Mass/Vol] 54 mg/dL Abnormal 5-40 [facility] Work Phone: Comment on above: PATIENT WAS FASTINGP ERFORMED BY: KEVIN LabCogina Mrhfsr2328 [address] RoadDublin [place] [id number] Triglyceride [Mass/Vol] 269 mg/dL Abnormal 0-149 [facility] Work Phone: Comment on above: PATIENT WAS FASTINGP ERFORMED BY: KEVIN LabCogina NathWinbwy6005 [address] RoadDublin [place] [id number] METABOLIC PANEL, COMPREHENSI VE ([id number])Ordered By: Grid Operator on 08-20-2018 Albumin [Mass/Vol] 4.2 g/dL Normal 3.5-4.8 [facility] Internal Medicine Work Phone: Comment on above: PATIENT WAS FASTINGP ERFORMED BY: KEVIN LabCo Znijww2178 [address] RoadDublin [place] [id number]; appt 08/24 Albumin/Globulin [Mass ratio] 1.6 {ratio} Normal 1.2-2.2 [facility] Work Phone: Comment on above: PATIENT WAS FASTINGP ERFORMED BY: KEVIN LabCogina Sgkqbv1469 [address] RoadDublin [place] [id number]; appt 08/24 ALP [Catalytic activity/Vol] 60 [iU]/L Normal 39-117 [facility] Work Phone: Comment on above: PATIENT WAS FASTINGP ERFORMED BY: KEVIN [facility] Wbgnix3776 [address] RoadDublin [place] [id number]; appt 08/24 ALT [Catalytic activity/Vol] 28 [iU]/L Normal 0-44 [facility] Work Phone: Comment on above: PATIENT WAS FASTINGP ERFORMED BY: KEVIN [facility] Lmipvy6785 [address] RoadDublin [place] [id number]; appt 08/24 AST [Catalytic activity/Vol] 23 [iU]/L Normal 0-40 [facility] Internal Medicine Work Phone: Comment on above: PATIENT WAS FASTINGP ERFORMED BY: CB [facility] Msakwm9937 [address] RoadDublin [place] [id number]; appt 08/24 Bilirubin [Mass/Vol] 0.5 mg/dL Normal 0.0-1.2 [facility] Work Phone: Comment on above: PATIENT WAS FASTINGP ERFORMED BY: CB [facility] Gvikhj7107 [address] RoadDublin [place] [id number]; appt 08/24 Calcium [Mass/Vol] 8.9 mg/dL Normal 8.6-10.2 [facility] Internal Medicine Work Phone: Comment on above: PATIENT WAS FASTINGP ERFORMED BY: CB [facility] Jhbduv0518 [address] RoadDublin [place] [id number]; appt 08/24 Chloride [Moles/Vol] 105 mmol/L Normal 96-106 [facility] Work Phone: Comment on above: PATIENT WAS FASTINGP ERFORMED BY: CB [facility] Lcmvwj6795 [address] RoadDublin [place] [id number]; appt 08/24 CO2 [Moles/Vol] 21 mmol/L Normal 20-29 [facility] Internal Medicine Work Phone: Comment on above: PATIENT WAS FASTINGP ERFORMED BY: CB [facility] Mumfyl5540 [address] RoadDublin [place] [id number]; appt 08/24 Creatinine [Mass/Vol] 1.82 mg/dL Abnormal 0.76-1.27 [facility] Internal Medicine Work Phone: Comment on above: PATIENT WAS FASTINGP ERFORMED BY: CB [facility] Teqmeb8938 [address] RoadDublin [place] [id number]; appt 08/24 GFR/1.73 sq M predicted among blacks CKD-EPI (S/P/Bld) [Vol rate/Area] 42 mL/min/1.73 Abnormal [facility] Internal Medicine Work Phone: Comment on above: PATIENT WAS FASTINGP ERFORMED BY: KEVIN [facility] Btvuon0832 [address] RoadDublin [place] [id number]; appt 08/24 GFR/1.73 sq M predicted among non-blacks CKD-EPI (S/P/Bld) [Vol rate/Area] 36 mL/min/1.73 Abnormal [facility] Internal Medicine Work Phone: Comment on above: PATIENT WAS FASTINGP ERFORMED BY: CB [facility] Yzsnlk6641 [address] RoadDublin [place] [id number]; appt 08/24 Globulin (S) [Mass/Vol] 2.7 g/dL Normal 1.5-4.5 [facility] Internal Medicine Work Phone: Comment on above: PATIENT WAS FASTINGP ERFORMED BY: KEVIN [facility] Hkhcmg7378 [address] RoadDublin [place] [id number]; appt 08/24 Glucose [Mass/Vol] 148 mg/dL Abnormal 65-99 [facility] Internal Medicine Work Phone: Comment on above: PATIENT WAS FASTINGP ERFORMED BY: KEVIN [facility] Ylzhyj2173 [address] RoadDublin [place] [id number]; appt 08/24 Potassium [Moles/Vol] 4.6 mmol/L Normal 3.5-5.2 [facility] Internal Medicine Work Phone: Comment on above: PATIENT WAS FASTINGP ERFORMED BY: CB [facility] Qboxmc2880 [address]Dublin [place] [id number]; appt 08/24 Protein [Mass/Vol] 6.9 g/dL Normal 6.0-8.5 [facility] Internal Medicine Work Phone: Comment on above: PATIENT WAS FASTINGP ERFORMED BY: CB [facility] Kcahql6973 [address] RoadDublin [place] [id number]; appt 08/24 Sodium [Moles/Vol] 142 mmol/L Normal 134-144 [facility] Internal Medicine Work Phone: Comment on above: PATIENT WAS FASTINGP ERFORMED BY: CB [facility] Iwqosx2225 [address] RoadDublin [place] [id number]; appt 08/24 Urea nitrogen [Mass/Vol] 29 mg/dL Abnormal 8-27 [facility] Work Phone: Comment on above: PATIENT WAS FASTINGP ERFORMED BY: KEVIN [facility] Alwsha4547 [address] Roadblin [place] [id number]; appt 08/24 Urea nitrogen/Creatinine [Mass ratio] 16 mg/mg Normal 10-24 [facility] Work Phone: Comment on above: PATIENT WAS FASTINGP ERFORMED BY: KEVIN [facility] Zvtvbc4961 [address] RoadAtrium Health Kannapolisin [place] [id number]; appt 08/24 Microscopic ExaminationOrder ed By: Grid Operator on 08-20-2018 Bacteria LM.HPF (Urine sed) [#/Area] None seen Normal Comprehensi ve Internal Medicine Work Phone: Comment on above: PATIENT WAS FASTINGP ERFORMED BY: KEVIN LabCo Ekzufn5718 [address] RoadAtrium Health Kannapolisin [place] [id number] Casts LM Nom (Urine sed) Hyaline casts Normal [facility] Work Phone: Comment on above: PATIENT WAS FASTINGP ERFORMED BY: [facility] Trbmkx0506 [address] RoadDublin [place] [id number] Casts LM Ql (Urine sed) Present Abnormal [facility] Work Phone: Comment on above: PATIENT WAS FASTINGP ERFORMED BY: KEVIN [facility] Vhsslv9408 [address] [facility]in [place] [id number] Epithelial cells LM.HPF (Urine sed) [#/Area] None seen Normal 0 - 10 [facility] Work Phone: Comment on above: PATIENT WAS FASTINGP ERFORMED BY: [facility] Wtzvis1602 [address] RoadDublin [place] [id number] RBC LM.HPF (Urine sed) [#/Area] None seen Normal 0 - 2 [facility] Work Phone: Comment on above: PATIENT WAS FASTINGP ERFORMED BY: KEVIN [facility] Xwwmpz8936 [address] Roadblin [place] [id number] WBC LM.HPF (Urine sed) [#/Area] 0-5 Normal 0 - 5 [facility] Work Phone: Comment on above: PATIENT WAS FASTINGP ERFORMED BY: KEVIN Nathlin6370 [address] RoadDublin [place] [id number] URINALYSIS, W/ MICRO ([id number]) Ordered By: Grid Operator on 08-20-2018 Appearance (U) Clear Normal Comprehens kevin Internal Medicine Work Phone: Comment on above: PATIENT WAS FASTINGP ERFORMED BY: KEVIN Nathlin6370 [address] RoadDublin [place] [id number] Bilirubin Ql (U) Negative Normal Comprehe nsive Internal Medicine Work Phone: Comment on above: PATIENT WAS FASTINGP ERFORMED BY: KEVIN Nathlin6370 [address] RoadD[address] [place] [id number] Color (U) Yellow Normal [facility] Work Phone: Comment on above: PATIENT WAS FASTINGP ERFORMED BY: KEVIN Haji6370 [address] RoadDublin [place] [id number] Glucose Ql (U) Negative Normal Comprehens kevin Internal Medicine Work Phone: Comment on above: PATIENT WAS FASTINGP ERFORMED BY: KEVIN Nathlin6370 [address] RoadDublin [place] [id number] Hemoglobin Ql (U) Negative Normal Compreh ensive Internal Medicine Work Phone: Comment on above: PATIENT WAS FASTINGP ERFORMED BY: KEVIN Nathlin6370 [address] RoadD[address] [place] [id number] Ketones Ql (U) Negative Normal Comprehens kevin Internal Medicine Work Phone: Comment on above: PATIENT WAS FASTINGP ERFORMED BY: KEVIN Nathlin6370 [address] RoadDublin [place] [id number] Leukocyte esterase Test strip Ql (U) Negative Normal [facility] Work Phone: Comment on above: PATIENT WAS FASTINGP ERFORMED BY: KEVIN Nathlin6370 [address] RoadDublin [place] [id number] Microscopic observation LM Nom (Urine sed) See below: Normal [facility] Work Phone: Comment on above: Microscopic was sailaja cated and was performed. PATIENT WAS FASTINGP ERFORMED BY: KEVIN LabAlcides Haji[address] Zenkarsblin [place] [id number] Nitrite Ql (U) Negative Normal Comprehens kevin Internal Medicine Work Phone: Comment on above: PATIENT WAS FASTINGP ERFORMED BY: KEVIN LabCo Afmdjr8[address] [facility]in [place] [id number] pH (U) 5.0 [pH] Normal 5.0-7.5 [facility] Work Phone: Comment on above: PATIENT WAS FASTINGP ERFORMED BY: KEVIN LabFatmata Klbigv5697 [address] Therapeutic Systemsblin [place] [id number] Protein Ql (U) 2+ Abnormal Comprehens kevin Internal Medicine Work Phone: Comment on above: PATIENT WAS FASTINGP ERFORMED BY: LabFatmata Awbhgn0313 [address] Therapeutic SystemsAtrium Health [facility] [id number] Specific gravity (U) [Rel density] 1.022 1 Normal 1.005-1.03 0 [facility] Work Phone: Comment on above: PATIENT WAS FASTINGP ERFORMED BY: LabFatmata Mmxyfe[address] [facility] [id number] Urobilinogen Test strip (U) [Mass/Vol] 0.2 mg/dL Normal 0.2-1.0 Comprehensi Internal Medicine Work Phone: Comment on above: PATIENT WAS FASTINGP ERFORMED BY: [facility] Slklyb[address] [facility] [id number] PSA,Total - Annual ScreenOrd ered By: Grid Operator on 04-09-2018 Prostate specific Ag mass conc 3.54 ng/mL Normal 0.00-4.00 [facility] Internal Medicine Work Phone: Comment on above: This test was perfor med using the TPSA assay method for [email or web address].com chemistry system. Values obtained with differentassay methods cannot be used interchangably.When changing PSA assays in the course of monitoring apatient, additional sequential testing should be carriedout to confirm baseline values. [facility] Rdvjwpoiqz[address] [place], [place], [address] CBC with auto diff ([id number])Or dered By: Grid Operator on 02-02-2018 Basophils (Bld) [#/Vol] 0.0 {x10E3/uL} Normal 0.0-0.2 [facility] Work Phone: Comment on above: PATIENT WAS FASTINGP ERFORMED BY: DailyDeal Ytdemn25[address] [place] [address] [id number] Basophils Auto #/vol (Bld) 0.0 {x10E3/uL} Normal 0.0-0.2 [facility] Work Phone: Basophils/100 WBC (Bld) 1 % Normal [facility] Work Phone: Comment on above: PATIENT WAS FASTINGP ERFORMED BY: Auctelia [facility] [id number] Basophils/100 WBC Auto (Bld) 1 % Normal [facility] Work Phone: Eosinophils (Bld) [#/Vol] 0.3 {x10E3/uL} Normal 0.0-0.4 [facility] Work Phone: Comment on above: PATIENT WAS FASTINGP ERFORMED BY: [employer]pegar[employer] [place] [address] [id number] Eosinophils Auto #/vol (Bld) 0.3 {x10E3/uL} Normal 0.0-0.4 [facility] Work Phone: Eosinophils/100 WBC (Bld) 4 % Normal [facility] Work Phone: Comment on above: PATIENT WAS FASTINGP ERFORMED BY: [address] [place] [address] [id number] Eosinophils/100 WBC Auto (Bld) 4 % Normal [facility] Work Phone: Erythrocyte distribution width (RBC) [Ratio] 15.8 % Abnormal 12.3-15.4 [facility] Work Phone: Comment on above: PATIENT WAS FASTINGP ERFORMED BY: [facility]6370 [facility] [id number] Erythrocyte distribution width Auto Ratio (RBC) 15.8 % Abnormal 12.3-15.4 [facility] Work Phone: Hematocrit (Bld) [Volume fraction] 45.3 % Normal 37.5-51.0 [facility] Work Phone: Comment on above: PATIENT WAS FASTINGP ERFORMED BY: [place] [id number] [facility] [id number] Hematocrit Auto Volume Fraction (Bld) 45.3 % Normal 37.5-51.0 [facility] Internal Medicine Work Phone: Hemoglobin mass conc (Bld) 14.9 g/dL Normal 13.0-17.7 [facility] Work Phone: Comment on above: PATIENT WAS FASTINGP ERFORMED BY: [place] [id number] [facility] [id number] Immature granulocytes #/vol (Bld) 0.0 {x10E3/uL} Normal 0.0-0.1 [facility] Work Phone: Comment on above: PATIENT WAS FASTINGP ERFORMED BY: [place] 0951370 [facility] [id number] Immature granulocytes/100 WBC (Bld) 0 % Normal [facility] Work Phone: Comment on above: PATIENT WAS FASTINGP ERFORMED BY: [facility]6370 [facility] [id number] Lymphocytes (Bld) [#/Vol] 1.5 {x10E3/uL} Normal 0.7-3.1 [facility] Work Phone: Comment on above: PATIENT WAS FASTINGP ERFORMED BY: [place] [id number] [facility] [id number] Lymphocytes Auto #/vol (Bld) 1.5 {x10E3/uL} Normal 0.7-3.1 [facility] Work Phone: Lymphocytes/100 WBC (Bld) 27 % Normal [facility] Work Phone: Comment on above: PATIENT WAS FASTINGP ERFORMED BY: [facility]6370 [facility] [id number] Lymphocytes/100 WBC Auto (Bld) 27 % Normal [facility] Work Phone: MCH (RBC) [Entitic mass] 28.4 pg Normal 26.6-33.0 [facility] Work Phone: Comment on above: PATIENT WAS FASTINGP ERFORMED BY: [place] [id number] [facility] [id number] MCH Auto Entitic mass (RBC) 28.4 pg Normal 26.6-33.0 [facility] Internal Medicine Work Phone: MCHC (RBC) [Mass/Vol] 32.9 g/dL Normal 31.5-35.7 [facility] Internal Medicine Work Phone: Comment on above: PATIENT WAS FASTINGP ERFORMED BY: [place] [id number] [facility] [id number] MCHC Auto mass conc (RBC) 32.9 g/dL Normal 31.5-35.7 [facility] Internal Medicine Work Phone: MCV (RBC) [Entitic vol] 86 fL Normal 79-97 [facility] Internal Medicine Work Phone: Comment on above: PATIENT WAS FASTINGP ERFORMED BY: [place] [id number] [facility] [id number] MCV Auto Entitic volume (RBC) 86 fL Normal 79-97 [facility] Internal Medicine Work Phone: Monocytes (Bld) [#/Vol] 0.4 {x10E3/uL} Normal 0.1-0.9 [facility] Internal Medicine Work Phone: Comment on above: PATIENT WAS FASTINGP ERFORMED BY: [facility]6370 [facility] [id number] Monocytes Auto #/vol (Bld) 0.4 {x10E3/uL} Normal 0.1-0.9 [facility] Work Phone: Monocytes/100 WBC (Bld) 7 % Normal [facility] Work Phone: Comment on above: PATIENT WAS FASTINGP ERFORMED BY: KEVIN CotyAlcides NathMfdgvy9586 [facility] [id number] Monocytes/100 WBC Auto (Bld) 7 % Normal [facility] Work Phone: Neutrophils (Bld) [#/Vol] 3.4 {x10E3/uL} Normal 1.4-7.0 [facility] Work Phone: Comment on above: PATIENT WAS FASTINGP ERFORMED BY: KEVIN [facility] CenterAlcides NathIgiyey7007 [facility] [id number] Neutrophils Auto #/vol (Bld) 3.4 {x10E3/uL} Normal 1.4-7.0 [facility] Work Phone: Neutrophils/100 WBC (Bld) 61 % Normal [facility] Work Phone: Comment on above: PATIENT WAS FASTINGP ERFORMED BY: KEVIN [facility] Bpijcn9866 [facility] [id number] Neutrophils/100 WBC Auto (Bld) 61 % Normal [facility] Work Phone: Platelets (Bld) [#/Vol] 133 {x10E3/uL} Abnormal 150-379 [facility] Work Phone: Comment on above: PATIENT WAS FASTINGP ERFORMED BY: KEVIN [place] [id number] [facility] [id number] Platelets Auto #/vol (Bld) 133 {x10E3/uL} Abnormal 150-379 [facility] Work Phone: RBC (Bld) [#/Vol] 5.25 {x10E6/uL} Normal 4.14-5.80 [facility] Internal Medicine Work Phone: Comment on above: PATIENT WAS FASTINGP ERFORMED BY: KEVIN [place] [id number] [facility] [id number] RBC Auto #/vol (Bld) 5.25 {x10E6/uL} Normal 4.14-5.80 [facility] Work Phone: WBC (Bld) [#/Vol] 5.7 {x10E3/uL} Normal 3.4-10.8 [facility] prehensive Internal Medicine Work Phone: Comment on above: PATIENT WAS FASTINGP ERFORMED BY: KEVIN [facility] Seqqbl7164 [employer] Verification EngineeringAtrium Health Kannapolisin [place] [id number] WBC Auto #/vol (Bld) 5.7 {x10E3/uL} Normal 3.4-10.8 [facility] Work Phone: HGB A1C ([id number])Ordered By: S ystem Department Director on 02-02-2018 Hemoglobin A1c/Hemoglobin.total mass fraction (Bld) 6.1 % Abnormal 4.8-5.6 Comprehensiv e Internal Medicine Work Phone: Comment on above: . Pre-diabetes: 5.7 - 6.4 Diabetes: >6.4 Glycemic control for adults with diabetes: <7.0 PATIENT WAS FASTINGP ERFORMED BY: KEVIN DailyDealrp Sbtwjn3586 Bionic Panda GamesSelect [facility] Hospital [facility] [id number] LIPID PANEL ([id number])Ordered B y: Grid Operator on 02-02-2018 Cholesterol in HDL mass conc 31 mg/dL Abnormal [facility] Work Phone: Comment on above: PATIENT WAS FASTINGP ERFORMED BY: KEVIN LabhiredMYway.comrp Htubtf1710 [facility]ionic Panda GamesSelect [facility] Hospital [facility] [id number] Cholesterol in LDL mass conc 46 mg/dL Normal 0-99 [facility] Work Phone: Comment on above: PATIENT WAS FASTINGP ERFORMED BY: KEVIN [employer] Here Nhyskw1504 [facility]ionic Panda GamesSelect [facility] Hospital [facility] [id number] Cholesterol in LDL/Cholesterol in HDL mass ratio 1.5 {ratio} Normal 0.0-3.6 [facility] Work Phone: Comment on above: LDL/HDL Ratio Men Wo men 1/2 Avg.Risk 1.0 1.5 Avg.Risk 3.6 3.2 2X Avg.Risk 6.2 5.0 3X Avg.Risk 8.0 6.1 PATIENT WAS FASTINGP ERFORMED BY: KEVIN [facility]yCorewell Health [facility]6370 [facility] [id number] Cholesterol in VLDL mass conc 37 mg/dL Normal 5-40 [facility] Work Phone: Comment on above: PATIENT WAS FASTINGP ERFORMED BY: KEVIN [facility] CenterFatmataWeisman Children's Rehabilitation HospitalVlxqai7357 [facility] [id number] Cholesterol mass conc 114 mg/dL Normal 100-199 [facility] prehensive Internal Medicine Work Phone: Comment on above: PATIENT WAS FASTINGP ERFORMED BY: KEVIN [facility]6370 [facility] [id number] Triglyceride mass conc 183 mg/dL Abnormal 0-149 [facility] Work Phone: Comment on above: PATIENT WAS FASTINGP ERFORMED BY: KEVIN AnsariI[facility] Igkilr9221 [facility] [id number] METABOLIC PANEL, COMPREHENSI VE ([id number])Ordered By: Grid Operator on 02-02-2018 Albumin mass conc 4.1 g/dL Normal 3.5-4.8 Compreh [facility] avondaleive Internal Medicine Work Phone: Comment on above: PATIENT WAS FASTINGP ERFORMED BY: KEVIN AnsariCorewell Health [facility]6370 [facility] [id number] Albumin/Globulin mass ratio 1.5 {ratio} Normal 1.2-2.2 [facility] Work Phone: Comment on above: PATIENT WAS FASTINGP ERFORMED BY: KEVIN [facility]6370 [facility] [id number] ALP enzyme act/vol 66 [iU]/L Normal 39-117 Compre [facility] Internal Medicine Work Phone: Comment on above: PATIENT WAS FASTINGP ERFORMED BY: KEVIN LabCorewell Health [facility]6370 [facility] [id number] ALT enzyme act/vol 26 [iU]/L Normal 0-44 Compre [facility] Internal Medicine Work Phone: Comment on above: PATIENT WAS FASTINGP ERFORMED BY: KEVIN [facility] Hrsrqg9865 [address] RoadDublin [place] [id number] AST enzyme act/vol 24 [iU]/L Normal 0-40 Compre [facility] Internal Medicine Work Phone: Comment on above: PATIENT WAS FASTINGP ERFORMED BY: KEVIN [facility] Xthwgs8997 [address] RoadD[address] [place] [id number] Bilirubin mass conc 0.4 mg/dL Normal 0.0-1.2 Compr ensive Internal Medicine Work Phone: Comment on above: PATIENT WAS FASTINGP ERFORMED BY: [facility] Mylrko4236 [address] RoadDublin [place] [id number] Calcium mass conc 9.1 mg/dL Normal 8.6-10.2 Compreh [facility] avondaleive Internal Medicine Work Phone: Comment on above: PATIENT WAS FASTINGP ERFORMED BY: KEVIN LabCo Yrhxas9036 [address] RoadDublin [place] [id number] Chloride molar conc 105 mmol/L Normal 96-106 Compr [facility] Internal Medicine Work Phone: Comment on above: PATIENT WAS FASTINGP ERFORMED BY: KEVIN LabCo Ligztq6070 [address] RoadDublin [place] [id number] CO2 molar conc 21 mmol/L Normal 20-29 Comprehens kevin Internal Medicine Work Phone: Comment on above: PATIENT WAS FASTINGP ERFORMED BY: KEVIN [facility] Gyhiam7657 [address] Roadblin [place] [id number] Creatinine mass conc 1.81 mg/dL Abnormal 0.76-1.27 Comp [facility] Internal Medicine Work Phone: Comment on above: PATIENT WAS FASTINGP ERFORMED BY: [facility] Wwhzyi1558 [address] RoadDublin [place] [id number] GFR/1.73 sq M predicted among blacks CKD-EPI vol rate/area (S/P/Bld) 42 mL/min/1.73 Abnormal Comprehensiv e Internal Medicine Work Phone: Comment on above: PATIENT WAS FASTINGP ERFORMED BY: [facility] Rxkmhv5349 [address] RoadDublin [place] [id number] GFR/1.73 sq M predicted among non-blacks CKD-EPI vol rate/area (S/P/Bld) 37 mL/min/1.73 Abnormal [facility] Work Phone: Comment on above: PATIENT WAS FASTINGP ERFORMED BY: KEVIN [facility]6370 [facility] [id number] Globulin (S) [Mass/Vol] 2.8 g/dL Normal 1.5-4.5 [facility] Work Phone: Comment on above: PATIENT WAS FASTINGP ERFORMED BY: [place] [id number] [facility] [id number] Globulin Calculated mass conc (S) 2.8 g/dL Normal 1.5-4.5 [facility] Work Phone: Glucose mass conc 112 mg/dL Abnormal 65-99 Compreh ensive Internal Medicine Work Phone: Comment on above: PATIENT WAS FASTINGP ERFORMED BY: KEVIN [place] [id number] [facility] [id number] Potassium molar conc 4.5 mmol/L Normal 3.5-5.2 Comp rehensive Internal Medicine Work Phone: Comment on above: PATIENT WAS FASTINGP ERFORMED BY: [place] [id number] [facility] [id number] Protein mass conc 6.9 g/dL Normal 6.0-8.5 Compreh ensive Internal Medicine Work Phone: Comment on above: PATIENT WAS FASTINGP ERFORMED BY: [place] [id number] [facility] [id number] Sodium molar conc 141 mmol/L Normal 134-144 Compreh ensive Internal Medicine Work Phone: Comment on above: PATIENT WAS FASTINGP ERFORMED BY: [place] [id number] [facility] [id number] Urea nitrogen mass conc 23 mg/dL Normal 8-27 [facility] Work Phone: Comment on above: PATIENT WAS FASTINGP ERFORMED BY: [place] [id number] [facility] [id number] Urea nitrogen/Creatinine mass ratio 13 mg/mg Normal 10-24 [facility] Work Phone: Comment on above: PATIENT WAS FASTINGP ERFORMED BY: KEVIN Haji6370 [facility] [id number] MICROALBUMINOrdered By: Syst em Department Director on 02-02-2018 Albumin DL <= 20 mg/L mass conc (U) 886.8 ug/mL Normal [facility] Work Phone: Comment on above: Results confirmed on dilution. PATIENT WAS FASTINGP ERFORMED BY: KEVIN Bradley Eypmdf3527 [facility] [id number] Albumin/Creatinine mass ratio (U) 881.5 {mg/g_creat} Abnormal 0.0-30.0 [facility] Work Phone: Comment on above: PATIENT WAS FASTINGP ERFORMED BY: KEVIN Nathlin6370 [facility] [id number] Creatinine mass conc (U) 100.6 mg/dL Normal [facility] Work Phone: Comment on above: PATIENT WAS FASTINGP ERFORMED BY: KEVIN Haji6370 [facility] [id number] METABOLIC PANEL, COMPREHENSI VE ([id number])Ordered By: Grid Operator on 08-22-2017 Albumin mass conc 4.2 g/dL Normal 3.5-4.8 Compreh ensive Internal Medicine Work Phone: Comment on above: PATIENT NOT FASTINGP ERFORMED BY: KEVIN Kirk Camsvc3524 [facility] [id number] Information: NURSE JUAN; review on 09/05 Albumin/Globulin mass ratio 1.6 {ratio} Normal 1.2-2.2 [facility] Work Phone: Comment on above: PATIENT NOT FASTINGP ERFORMED BY: KEVIN [facility] Ayjzig2929 [facility] [id number] Information: NURSE JUAN; review on 09/05 ALP enzyme act/vol 74 [iU]/L Normal 39-117 [facility] Internal Medicine Work Phone: Comment on above: PATIENT NOT FASTINGP ERFORMED BY: KEVIN LabAlcides Haji6370 [facility] [id number] Information: NURSE MARTINEZ; review on 09/05 ALT enzyme act/vol 20 [iU]/L Normal 0-44 [facility] Internal Medicine Work Phone: Comment on above: PATIENT NOT FASTINGP ERFORMED BY: KEVIN LabCogina NathRjbodm3854 [facility] [id number] Information: NURSE MARTINEZ; review on 09/05 AST enzyme act/vol 18 [iU]/L Normal 0-40 [facility] Internal Medicine Work Phone: Comment on above: PATIENT NOT FASTINGP ERFORMED BY: KEVIN Nathlin6370 [facility] [id number] Information: NURSE MARTINEZ; review on 09/05 Bilirubin mass conc 0.4 mg/dL Normal 0.0-1.2 [facility] Internal Medicine Work Phone: Comment on above: PATIENT NOT FASTINGP ERFORMED BY: KEVIN Nathlin6370 [facility] [id number] Information: NURSE MARTINEZ; review on 09/05 Calcium mass conc 9.3 mg/dL Normal 8.6-10.2 Compreh [facility] Internal [facility] Work Phone: Comment on above: PATIENT NOT FASTINGP ERFORMED BY: KEVIN LabAlcides NathSktdnm3134 [facility] [id number] Information: NURSE MARTINEZ; review on 09/05 Chloride molar conc 101 mmol/L Normal 96-106 [facility] Internal Medicine Work Phone: Comment on above: PATIENT NOT FASTINGP ERFORMED BY: KEVIN LabAlcides NathNbcqqc0215 [facility] [id number] Information: NURSE MARTINEZ; review on 09/05 CO2 molar conc 20 mmol/L Normal 18-29 Comprehens kevin Internal Medicine Work Phone: Comment on above: PATIENT NOT FASTINGP ERFORMED BY: LabCoTimothy Ville [id number] [facility] [id number] Information: NURSE MARTINEZ; review on 09/05 Creatinine mass conc 1.70 mg/dL Abnormal 0.76-1.27 Comp rehensive Internal Medicine Work Phone: Comment on above: PATIENT NOT FASTINGP ERFORMED BY: LabCoTimothy Ville [id number] [facility] [id number] Information: NURSE MARTINEZ; review on 09/05 GFR/1.73 sq M predicted among blacks CKD-EPI vol rate/area (S/P/Bld) 46 mL/min/1.73 Abnormal Comprehensiv e Internal Medicine Work Phone: Comment on above: PATIENT NOT FASTINGP ERFORMED BY: KEVIN [address] [id number] Information: NURSE MARTINEZ; review on 09/05 GFR/1.73 sq M predicted among non-blacks CKD-EPI vol rate/area (S/P/Bld) 39 mL/min/1.73 Abnormal [facility] Work Phone: Comment on above: PATIENT NOT FASTINGP ERFORMED BY: KEVIN [facility] Xmuuwf4188 [facility] [id number] Information: NURSE MARTINEZ; review on 09/05 Globulin (S) [Mass/Vol] 2.7 g/dL Normal 1.5-4.5 [facility] Work Phone: Comment on above: PATIENT NOT FASTINGP ERFORMED BY: LabSandra Ville [id number] [facility] [id number] Information: NURSE MARTINEZ; review on 09/05 Globulin Calculated mass conc (S) 2.7 g/dL Normal 1.5-4.5 [facility] Work Phone: Glucose mass conc 130 mg/dL Abnormal 65-99 Compreh ensive Internal Medicine Work Phone: Comment on above: PATIENT NOT FASTINGP ERFORMED BY: KEVIN LabCoTimothy Ville [id number] [facility] [id number] Information: NURSE MARTINEZ; review on 09/05 Potassium molar conc 4.2 mmol/L Normal 3.5-5.2 Comp rehensive Internal Medicine Work Phone: Comment on above: PATIENT NOT FASTINGP ERFORMED BY: KEVIN LabCoTimothy Ville [id number] [facility] [id number] Information: NURSE MARTINEZ; review on 09/05 Protein mass conc 6.9 g/dL Normal 6.0-8.5 Compreh ensive Internal Medicine Work Phone: Comment on above: PATIENT NOT FASTINGP ERFORMED BY: KEVIN Nathlin6370 [facility] [id number] Information: NURSE MARTINEZ; review on 09/05 Sodium molar conc 142 mmol/L Normal 134-144 Compreh ensive Internal Medicine Work Phone: Comment on above: PATIENT NOT FASTINGP ERFORMED BY: KEVIN [facility] Rmuyhp9781 [facility] [id number] Information: NURSE MARTINEZ; review on 09/05 Urea nitrogen mass conc 28 mg/dL Abnormal 8- [facility] Work Phone: Comment on above: PATIENT NOT FASTINGP ERFORMED BY: KEVIN AnsariPagina NathAiyqcr8245 [facility] [id number] Information: NURSE MARTINEZ; review on 09/05 Urea nitrogen/Creatinine mass ratio 16 mg/mg Normal 10-24 [facility] Work Phone: Comment on above: PATIENT NOT FASTINGP ERFORMED BY: KEVIN LabCoTimothy Ville [id number] [facility] [id number] Information: NURSE MARTINEZ; review on 09/05 CBC with auto diff ([id number])Or dered By: Grid Operator on 05-16-2017 Basophils (Bld) [#/Vol] 0.0 {x10E3/uL} Normal 0.0-0.2 [facility] Work Phone: Comment on above: PATIENT NOT FASTINGP ERFORMED BY: [place] [id number] [facility] [id number] Basophils Auto #/vol (Bld) 0.0 {x10E3/uL} Normal 0.0-0.2 [facility] Work Phone: Basophils/100 WBC (Bld) 1 % Normal [facility] Work Phone: Comment on above: PATIENT NOT FASTINGP ERFORMED BY: [place] [id number] [facility] [id number] Basophils/100 WBC Auto (Bld) 1 % Normal [facility] Work Phone: Eosinophils (Bld) [#/Vol] 0.2 {x10E3/uL} Normal 0.0-0.4 [facility] Work Phone: Comment on above: PATIENT NOT FASTINGP ERFORMED BY: [address] [id number] Eosinophils Auto #/vol (Bld) 0.2 {x10E3/uL} Normal 0.0-0.4 [facility] Work Phone: Eosinophils/100 WBC (Bld) 3 % Normal [facility] Work Phone: Comment on above: PATIENT NOT FASTINGP ERFORMED BY: [place] [id number] [facility] [id number] Eosinophils/100 WBC Auto (Bld) 3 % Normal [facility] Work Phone: Erythrocyte distribution width (RBC) [Ratio] 15.9 % Abnormal 12.3-15.4 [facility] Work Phone: Comment on above: PATIENT NOT FASTINGP ERFORMED BY: [place] [id number] [facility] [id number] Erythrocyte distribution width Auto Ratio (RBC) 15.9 % Abnormal 12.3-15.4 [facility] Work Phone: Hematocrit (Bld) [Volume fraction] 44.9 % Normal 37.5-51.0 [facility] Work Phone: Comment on above: PATIENT NOT FASTINGP ERFORMED BY: LabCo Cyvvns07[address] [facility] [id number] Hematocrit Auto Volume Fraction (Bld) 44.9 % Normal 37.5-51.0 [facility] Internal Medicine Work Phone: Hemoglobin mass conc (Bld) 15.2 g/dL Normal 12.6-17.7 [facility] Work Phone: Comment on above: PATIENT NOT FASTINGP ERFORMED BY: LabCo Nvxote87[address] [facility] [id number] Immature granulocytes #/vol (Bld) 0.0 {x10E3/uL} Normal 0.0-0.1 [facility] Work Phone: Comment on above: PATIENT NOT FASTINGP ERFORMED BY: [facility]CoCrownpoint Health Care FacilityYzmpek9[address] [facility] [id number] Immature granulocytes/100 WBC (Bld) 0 % Normal [facility] Work Phone: Comment on above: PATIENT NOT FASTINGP ERFORMED BY: [facility]CoCrownpoint [facility] Care FacilitySqwmkf3272 [facility] [id number] Lymphocytes (Bld) [#/Vol] 1.5 {x10E3/uL} Normal 0.7-3.1 [facility] Work Phone: Comment on above: PATIENT NOT FASTINGP ERFORMED BY: LabCoCrownpoint Health Care FacilityDgwwiw60[address] [facility] [id number] Lymphocytes Auto #/vol (Bld) 1.5 {x10E3/uL} Normal 0.7-3.1 [facility] Work Phone: Lymphocytes/100 WBC (Bld) 27 % Normal [facility] Work Phone: Comment on above: PATIENT NOT FASTINGP ERFORMED BY: LabCo Xvxafy8938 [facility] [id number] Lymphocytes/100 WBC Auto (Bld) 27 % Normal [facility] Work Phone: MCH (RBC) [Entitic mass] 28.4 pg Normal 26.6-33.0 [facility] Work Phone: Comment on above: PATIENT NOT FASTINGP ERFORMED BY: [facility] Kroapl8698 [facility] [id number] MCH Auto Entitic mass (RBC) 28.4 pg Normal 26.6-33.0 [facility] Work Phone: MCHC (RBC) [Mass/Vol] 33.9 g/dL Normal 31.5-35.7 [facility] Internal Medicine Work Phone: Comment on above: PATIENT NOT FASTINGP ERFORMED BY: [facility]6370 [facility] [id number] MCHC Auto mass conc (RBC) 33.9 g/dL Normal 31.5-35.7 [facility] Internal Medicine Work Phone: MCV (RBC) [Entitic vol] 84 fL Normal 79-97 [facility] Work Phone: Comment on above: PATIENT NOT FASTINGP ERFORMED BY: [place] [id number] [facility] [id number] MCV Auto Entitic volume (RBC) 84 fL Normal 79-97 [facility] Work Phone: Monocytes (Bld) [#/Vol] 0.5 {x10E3/uL} Normal 0.1-0.9 [facility] Work Phone: Comment on above: PATIENT NOT FASTINGP ERFORMED BY: [facility]6370 [facility] [id number] Monocytes Auto #/vol (Bld) 0.5 {x10E3/uL} Normal 0.1-0.9 [facility] Work Phone: Monocytes/100 WBC (Bld) 9 % Normal [facility] Work Phone: Comment on above: PATIENT NOT FASTINGP ERFORMED BY: [place] [id number] [facility] [id number] Monocytes/100 WBC Auto (Bld) 9 % Normal [facility] Work Phone: Neutrophils (Bld) [#/Vol] 3.3 {x10E3/uL} Normal 1.4-7.0 [facility] Work Phone: Comment on above: PATIENT NOT FASTINGP ERFORMED BY: KEVIN Flash Haji6370 [facility] [id number] Neutrophils Auto #/vol (Bld) 3.3 {x10E3/uL} Normal 1.4-7.0 [facility] Work Phone: Neutrophils/100 WBC (Bld) 60 % Normal [facility] Work Phone: Comment on above: PATIENT NOT FASTINGP ERFORMED BY: KEVIN CotyAlcides NathPkpxea0905 [facility] [id number] Neutrophils/100 WBC Auto (Bld) 60 % Normal [facility] Work Phone: Platelets (Bld) [#/Vol] 120 {x10E3/uL} Abnormal 150-379 [facility] Work Phone: Comment on above: PATIENT NOT FASTINGP ERFORMED BY: KEVIN [facility] Zqilko2014 [facility] [id number] Platelets Auto #/vol (Bld) 120 {x10E3/uL} Abnormal 150-379 [facility] Work Phone: RBC (Bld) [#/Vol] 5.35 {x10E6/uL} Normal 4.14-5.80 [facility] Internal Medicine Work Phone: Comment on above: PATIENT NOT FASTINGP ERFORMED BY: KEVIN CotyFatmata Hjnhix7697 [facility] [id number] RBC Auto #/vol (Bld) 5.35 {x10E6/uL} Normal 4.14-5.80 [facility] Work Phone: WBC (Bld) [#/Vol] 5.4 {x10E3/uL} Normal 3.4-10.8 [facility] Internal Medicine Work Phone: Comment on above: PATIENT NOT FASTINGP ERFORMED BY: KEVIN LabFatmata Ueazpm7285 [facility] [id number] WBC Auto #/vol (Bld) 5.4 {x10E3/uL} Normal 3.4-10.8 [facility] Work Phone: HGB A1C ([id number])Ordered By: S ystem Department Director on 05-16-2017 Hemoglobin A1c/Hemoglobin.total mass fraction (Bld) 5.9 % Abnormal 4.8-5.6 Comprehensiv e Internal Medicine Work Phone: Comment on above: . Pre-diabetes: 5.7 - 6.4 Diabetes: >6.4 Glycemic control for adults with diabetes: <7.0 PATIENT NOT FASTINGP ERFORMED BY: KEVIN [facility] Evaaii0969 [address] Therapeutic SystemsDublin [place] [id number] VITAMIN B-12 (CYANOCOBALAMIN ) ([id number])Ordered By: Grid Operator on 05-16-2017 Cobalamin (Vitamin B12) mass conc 373 pg/mL Normal 211-946 [facility] Work Phone: Comment on above: PATIENT NOT FASTINGP ERFORMED BY: CB [facility] Veutpy9584 Bush RoadDublin [place] [id number] LIPID PANEL ([id number])Ordered B y: Grid Operator on 05-08-2017 Cholesterol in HDL mass conc 36 mg/dL Abnormal [facility] Work Phone: Comment on above: PATIENT WAS FASTINGP ERFORMED BY: KEVIN [facility] Uhrxjw7610 Bush RoadDublin [place] [id number] Cholesterol in LDL mass conc 98 mg/dL Normal 0-99 [facility] Work Phone: Comment on above: PATIENT WAS FASTINGP ERFORMED BY: [employer] [facility] Ljnsfv2289 [address] [facility] SystemsDublin [place] [id number] Cholesterol in LDL/Cholesterol in HDL mass ratio 2.7 {ratio_units} Normal 0.0-3.6 [facility] Work Phone: Comment on above: LDL/HDL Ratio Men Wo men 1/2 Avg.Risk 1.0 1.5 Avg.Risk 3.6 3.2 2X Avg.Risk 6.2 5.0 3X Avg.Risk 8.0 6.1 PATIENT WAS FASTINGP ERFORMED BY: KEVIN [facility] Oiryii9029 [address] [facility] [place] [id number] Cholesterol in VLDL mass conc 32 mg/dL Normal 5-40 [facility] Work Phone: Comment on above: PATIENT WAS FASTINGP ERFORMED BY: KEVIN [facility] Vvyvtq5[address] [facility] [id number] Cholesterol mass conc 166 mg/dL Normal 100-199 [facility] prehensive Internal Medicine Work Phone: Comment on above: PATIENT WAS FASTINGP ERFORMED BY: LabCo Nwfqnw85[address] [facility] [id number] Triglyceride mass conc 158 mg/dL Abnormal 0-149 [facility] Work Phone: Comment on above: PATIENT WAS FASTINGP ERFORMED BY: KEVIN [facility] Afqzeq0230 [facility] [id number] METABOLIC PANEL, COMPREHENSI VE ([id number])Ordered By: Grid Operator on 05-08-2017 Albumin mass conc 4.3 g/dL Normal 3.5-4.8 Compreh [facility] Internal Medicine Work Phone: Comment on above: PATIENT WAS FASTINGP ERFORMED BY: KEVIN LabCorewell [facility]6370 [facility] [id number] Albumin/Globulin mass ratio 1.6 {ratio} Normal 1.2-2.2 [facility] Internal Medicine Work Phone: Comment on above: PATIENT WAS FASTINGP ERFORMED BY: LabCo Nkbavy9[address] [facility] [id number] ALP enzyme act/vol 56 [iU]/L Normal 39-117 [facility] Internal [facility] Work Phone: Comment on above: PATIENT WAS FASTINGP ERFORMED BY: LabCo Yyjsho[address] [facility] [id number] ALT enzyme act/vol 27 [iU]/L Normal 0-44 [facility] Internal Medicine Work Phone: Comment on above: PATIENT WAS FASTINGP ERFORMED BY: [facility] Vqnoxh220[address] [facility] [id number] AST enzyme act/vol 22 [iU]/L Normal 0-40 Compre [facility] Internal Medicine Work Phone: Comment on above: PATIENT WAS FASTINGP ERFORMED BY: KEVIN LabCogina HajiQyfszw37[address] [facility] [id number] Bilirubin mass conc 0.5 mg/dL Normal 0.0-1.2 [facility] Work Phone: Comment on above: PATIENT WAS FASTINGP ERFORMED BY: KEVIN [facility] Vgihrx20[address] [facility] [id number] Calcium mass conc 9.1 mg/dL Normal 8.6-10.2 Compreh ensive Internal Medicine Work Phone: Comment on above: PATIENT WAS FASTINGP ERFORMED BY: KEVIN Bradley Hdyipf8416 [facility] [id number] Chloride molar conc 102 mmol/L Normal 96-106 [facility] Internal Medicine Work Phone: Comment on above: PATIENT WAS FASTINGP ERFORMED BY: LabCorewell [facility]6370 [facility] [id number] CO2 molar conc 21 mmol/L Normal 18-29 Comprehens kevin Internal Medicine Work Phone: Comment on above: PATIENT WAS FASTINGP ERFORMED BY: Kirk Edpajq9574 [facility] [id number] Creatinine mass conc 1.63 mg/dL Abnormal 0.76-1.27 Comp [facility] Internal [facility] Work Phone: Comment on above: PATIENT WAS FASTINGP ERFORMED BY: LabCo Wiexsz8303 [facility] [id number] GFR/1.73 sq M predicted among blacks CKD-EPI vol rate/area (S/P/Bld) 48 mL/min/1.73 Abnormal Comprehensiv e Internal Medicine Work Phone: Comment on above: PATIENT WAS FASTINGP ERFORMED BY: LabCo Gwcljy72[address] [facility] [id number] GFR/1.73 sq M predicted among non-blacks CKD-EPI vol rate/area (S/P/Bld) 42 mL/min/1.73 Abnormal [facility] Work Phone: Comment on above: PATIENT WAS FASTINGP ERFORMED BY: KEVIN Flash Haji6370 [facility] [id number] Globulin (S) [Mass/Vol] 2.7 g/dL Normal 1.5-4.5 [facility] Work Phone: Comment on above: PATIENT WAS FASTINGP ERFORMED BY: KEVIN Kirk Gfggat1074 [facility] [id number] Globulin Calculated mass conc (S) 2.7 g/dL Normal 1.5-4.5 [facility] Work Phone: Glucose mass conc 94 mg/dL Normal 65-99 Compreh ensive Internal Medicine Work Phone: Comment on above: PATIENT WAS FASTINGP ERFORMED BY: KEVIN Bradley Cffcwu2909 [facility] [id number] Potassium molar conc 4.5 mmol/L Normal 3.5-5.2 Comp rehensive Internal Medicine Work Phone: Comment on above: PATIENT WAS FASTINGP ERFORMED BY: KEVIN Kirkgina Fiygwz3867 [facility] [id number] Protein mass conc 7.0 g/dL Normal 6.0-8.5 Compreh ensive Internal Medicine Work Phone: Comment on above: PATIENT WAS FASTINGP ERFORMED BY: KEVIN [facility] Vqrvee8170 [facility] [id number] Sodium molar conc 143 mmol/L Normal 134-144 Compreh ensive Internal Medicine Work Phone: Comment on above: PATIENT WAS FASTINGP ERFORMED BY: KEVIN LabFatmata Mdrfew9742 [facility] [id number] Urea nitrogen mass conc 22 mg/dL Normal 8-27 [facility] Work Phone: Comment on above: PATIENT WAS FASTINGP ERFORMED BY: KEVIN [facility] Frtfyi4518 [facility] [id number] Urea nitrogen/Creatinine mass ratio 13 mg/mg Normal 05-06 [facility] Work Phone: Comment on above: PATIENT WAS FASTINGP ERFORMED BY: KEVIN [employer] BeverageCorewell Health [facility]6370 [facility] [id number] MICROALBUMINOrdered By: Syst em Department Director on 05-08-2017 Albumin DL <= 20 mg/L mass conc (U) 985.8 ug/mL Normal [facility] Work Phone: Comment on above: Results confirmed on dilution. PATIENT WAS FASTINGP ERFORMED BY: [place] [id number] [facility] [id number] Albumin/Creatinine mass ratio (U) 698.7 {mg/g_creat} Abnormal 0.0-30.0 [facility] Work Phone: Comment on above: PATIENT WAS FASTINGP ERFORMED BY: [facility]6370 [facility] [id number] Creatinine mass conc (U) 141.1 mg/dL Normal [facility] Work Phone: Comment on above: PATIENT WAS FASTINGP ERFORMED BY: [facility]6370 [facility] [id number] CBC W/AUTO DIFF WBC ([id number])O rdered By: Grid Operator on 03-04-2017 Basophils (Bld) [#/Vol] 0.1 {x10E3/uL} Normal 0.0-0.2 [facility] Work Phone: Comment on above: PATIENT NOT FASTINGP ERFORMED BY: Spindrift BeverageSandra Ville [id number] [facility] [id number] Basophils Auto #/vol (Bld) 0.1 {x10E3/uL} Normal 0.0-0.2 [facility] Work Phone: Basophils/100 WBC (Bld) 1 % Normal [facility] Work Phone: Comment on above: PATIENT NOT FASTINGP ERFORMED BY: [place] [id number] [facility] [id number] Basophils/100 WBC Auto (Bld) 1 % Normal [facility] Work Phone: Eosinophils (Bld) [#/Vol] 0.2 {x10E3/uL} Normal 0.0-0.4 [facility] Work Phone: Comment on above: PATIENT NOT FASTINGP ERFORMED BY: CB [facility] Vwkjha3557 [address] Roadbl[address] [place] [id number] Eosinophils Auto #/vol (Bld) 0.2 {x10E3/uL} Normal 0.0-0.4 [facility] Work Phone: Eosinophils/100 WBC (Bld) 3 % Normal [facility] Work Phone: Comment on above: PATIENT NOT FASTINGP ERFORMED BY: LabCo Uscgsf5843 [facility] SystemsAtrium Health [place]in [place] [id number] Eosinophils/100 WBC Auto (Bld) 3 % Normal [facility] Work Phone: Erythrocyte distribution width (RBC) [Ratio] 16.0 % Abnormal 12.3-15.4 [facility] Work Phone: Comment on above: PATIENT NOT FASTINGP ERFORMED BY: LabCorewell [facility]6370 [facility] SystemsAt[facility] [id number] Erythrocyte distribution width Auto Ratio (RBC) 16.0 % Abnormal 12.3-15.4 [facility] Work Phone: Hematocrit (Bld) [Volume fraction] 49.5 % Normal 37.5-51.0 [facility] Work Phone: Comment on above: PATIENT NOT FASTINGP ERFORMED BY: LabCo Aipkdv17[address] [facility] [id number] Hematocrit Auto Volume Fraction (Bld) 49.5 % Normal 37.5-51.0 Comprehens [facility] Internal Medicine Work Phone: Hemoglobin mass conc (Bld) 16.2 g/dL Normal 12.6-17.7 [facility] Work Phone: Comment on above: PATIENT NOT FASTINGP ERFORMED BY: CB [facility] Fhjitq3590 [facility] [place] [id number] Immature granulocytes #/vol (Bld) 0.0 {x10E3/uL} Normal 0.0-0.1 [facility] Work Phone: Comment on above: PATIENT NOT FASTINGP ERFORMED BY: KEVIN Nathlin6370 [facility] [id number] Immature granulocytes/100 WBC (Bld) 0 % Normal [facility] Work Phone: Comment on above: PATIENT NOT FASTINGP ERFORMED BY: KEVIN Nathlin6370 [facility] [id number] Lymphocytes (Bld) [#/Vol] 1.6 {x10E3/uL} Normal 0.7-3.1 [facility] Work Phone: Comment on above: PATIENT NOT FASTINGP ERFORMED BY: KEVIN Nathlin6370 [facility] [id number] Lymphocytes Auto #/vol (Bld) 1.6 {x10E3/uL} Normal 0.7-3.1 [facility] Work Phone: Lymphocytes/100 WBC (Bld) 30 % Normal [facility] Work Phone: Comment on above: PATIENT NOT FASTINGP ERFORMED BY: KEVIN Nathlin6370 [facility] [id number] Lymphocytes/100 WBC Auto (Bld) 30 % Normal [facility] Work Phone: MCH (RBC) [Entitic mass] 27.9 pg Normal 26.6-33.0 [facility] Work Phone: Comment on above: PATIENT NOT FASTINGP ERFORMED BY: KEVIN LabFatmataTim[place] [id number] [facility] [id number] MCH Auto Entitic mass (RBC) 27.9 pg Normal 26.6-33.0 [facility] Work Phone: MCHC (RBC) [Mass/Vol] 32.7 g/dL Normal 31.5-35.7 [facility] prehensive Internal Medicine Work Phone: Comment on above: PATIENT NOT FASTINGP ERFORMED BY: KEVIN Vidales Uyuzjk5459 [facility] [id number] MCHC Auto mass conc (RBC) 32.7 g/dL Normal 31.5-35.7 [facility] Work Phone: MCV (RBC) [Entitic vol] 85 fL Normal 79-97 [facility] Work Phone: Comment on above: PATIENT NOT FASTINGP ERFORMED BY: LabCo Euorum[address] [facility] [id number] MCV Auto Entitic volume (RBC) 85 fL Normal 79-97 [facility] Work Phone: Monocytes (Bld) [#/Vol] 0.4 {x10E3/uL} Normal 0.1-0.9 [facility] Work Phone: Comment on above: PATIENT NOT FASTINGP ERFORMED BY: [facility]6370 [facility] [id number] Monocytes Auto #/vol (Bld) 0.4 {x10E3/uL} Normal 0.1-0.9 [facility] Work Phone: Monocytes/100 WBC (Bld) 8 % Normal [facility] Work Phone: Comment on above: PATIENT NOT FASTINGP ERFORMED BY: LabCoWeisman Children's Rehabilitation HospitalBtqmju0249 [facility] [id number] Monocytes/100 WBC Auto (Bld) 8 % Normal [facility] Work Phone: Morphology Interp Mahendra (Bld) Note: Normal [facility] Work Phone: Comment on above: Verified by microsco pic examination. PATIENT NOT FASTINGP ERFORMED BY: [facility] Jsxbey[address] [facility] [id number] Neutrophils (Bld) [#/Vol] 3.1 {x10E3/uL} Normal 1.4-7.0 [facility] Work Phone: Comment on above: PATIENT NOT FASTINGP ERFORMED BY: [facility] Lpwsax4987 [facility] [place] [id number] Neutrophils Auto #/vol (Bld) 3.1 {x10E3/uL} Normal 1.4-7.0 [facility] Work Phone: Neutrophils/100 WBC (Bld) 58 % Normal [facility] Work Phone: Comment on above: PATIENT NOT FASTINGP ERFORMED BY: KEVIN Roadnet70 [facility] [id number] Neutrophils/100 WBC Auto (Bld) 58 % Normal [facility] Work Phone: Platelets (Bld) [#/Vol] 110 {x10E3/uL} Abnormal 150-379 [facility] Internal Medicine Work Phone: Comment on above: Actual platelet coun t may be somewhat higher than reported due toaggregation of platelets in this sample. PATIENT NOT FASTINGP ERFORMED BY: KEVIN [facility]TheSelect [facility]ty [facility] [id number] Platelets Auto #/vol (Bld) 110 {x10E3/uL} Abnormal 150-379 [facility] Internal Medicine Work Phone: Comment on above: Actual platelet coun t may be somewhat higher than reported due toaggregation of platelets in this sample. RBC (Bld) [#/Vol] 5.81 {x10E6/uL} Abnormal 4.14-5.80 [facility] Internal Medicine Work Phone: Comment on above: PATIENT NOT FASTINGP ERFORMED BY: Despegar.com70 [facility] [id number] RBC Auto #/vol (Bld) 5.81 {x10E6/uL} Abnormal 4.14-5.80 [facility] Internal Medicine Work Phone: WBC (Bld) [#/Vol] 5.3 {x10E3/uL} Normal 3.4-10.8 [facility] Internal Medicine Work Phone: Comment on above: PATIENT NOT FASTINGP ERFORMED BY: Despegar.com70 [facility] [id number] WBC Auto #/vol (Bld) 5.3 {x10E3/uL} Normal 3.4-10.8 [facility] Work Phone: SPEP ([id number])Ordered By: Syst em Department Director on 03-04-2017 Albumin mass conc 3.7 g/dL Normal 2.9-4.4 Compreh ensive Internal Medicine Work Phone: Comment on above: PATIENT NOT FASTINGP ERFORMED BY: CB [facility] Qooqgk5500 [address] RoadAtrium [place]in [place] [id number] Albumin/Globulin mass ratio 1.1 {ratio} Normal 0.7-1.7 [facility] Work Phone: Comment on above: PATIENT NOT FASTINGP ERFORMED BY: CB [facility] Jyshus8284 [facility] RoadAt[facility] [id number] Alpha 1 globulin Elph mass conc 0.2 g/dL Normal 0.0-0.4 [facility] Work Phone: Comment on above: PATIENT NOT FASTINGP ERFORMED BY: CB [facility] Gozfon5402 [facility] RoadAt[facility] [id number] Alpha 2 globulin Elph mass conc 0.8 g/dL Normal 0.4-1.0 [facility] Work Phone: Comment on above: PATIENT NOT FASTINGP ERFORMED BY: KEVIN [facility] Rizwdf[address] [facility] [id number] Beta globulin Elph mass conc 1.0 g/dL Normal 0.7-1.3 [facility] Work Phone: Comment on above: PATIENT NOT FASTINGP ERFORMED BY: CB [facility] Setfht[address] [facility] [id number] Gamma globulin Elph mass conc 1.2 g/dL Normal 0.4-1.8 [facility] Work Phone: Comment on above: PATIENT NOT FASTINGP ERFORMED BY: CB [facility] Wjpxbx[address] [facility] [id number] Globulin (S) [Mass/Vol] 3.3 g/dL Normal 2.2-3.9 [facility] Work Phone: Comment on above: PATIENT NOT FASTINGP ERFORMED BY: CB [facility] Siiesx2945 [facility] [place] [id number] Globulin Calculated mass conc (S) 3.3 g/dL Normal 2.2-3.9 [facility] Work Phone: Laboratory comment Mahendra (Report) SPRCS Normal [facility] Work Phone: Comment on above: Protein electrophore sis scan will follow via computer, mail, orcourier delivery. PATIENT NOT FASTINGP ERFORMED BY: CB [facility] Lbdiri4921 [facility] [place] [id number] Protein mass conc 7.0 g/dL Normal 6.0-8.5 Compreh ensive Internal Medicine Work Phone: Comment on above: PATIENT NOT FASTINGP ERFORMED BY: CB [facility] Ycbsnq8497 [facility] [place] [id number] Protein.monoclonal Elph mass conc Not Observed Normal [facility] Work Phone: Comment on above: PATIENT NOT FASTINGP ERFORMED BY: CB [facility] Stmotn[address] [facility] [id number] UPEP ([id number])Ordered By: Syst em Department Director on 03-04-2017 Albumin/Protein.total Elph mass fraction (U) 81.6 % Normal [facility] Work Phone: Comment on above: PATIENT NOT FASTINGP ERFORMED BY: CB [facility] Ajhoxr1466 [facility] [id number] Alpha 1 globulin/Protein.tota l Elph mass fraction (U) 2.1 % Normal [facility] Work Phone: Comment on above: PATIENT NOT FASTINGP ERFORMED BY: CB [facility] Yczjjg[address] [facility] [id number] Alpha 2 globulin/Protein.tota l Elph mass fraction (U) 4.3 % Normal [facility] Work Phone: Comment on above: PATIENT NOT FASTINGP ERFORMED BY: CB [facility] Cueclj6382 [facility] [id number] Beta globulin/Protein.tota l Elph mass fraction (U) 7.5 % Normal [facility] Work Phone: Comment on above: PATIENT NOT FASTINGP ERFORMED BY: CB [facility] Hwjgnx4658 Bush RoadDublin [place] [id number] Gamma globulin/Protein.tota l Elph mass fraction (U) 4.4 % Normal [facility] Work Phone: Comment on above: PATIENT NOT FASTINGP ERFORMED BY: CB [facility] Xmgsur0858 [address] RoadDublin [place] [id number] Protein mass conc (U) 108.1 mg/dL Normal Co mprehensive Internal Medicine Work Phone: Comment on above: PATIENT NOT FASTINGP ERFORMED BY: CB [facility] Vdiayb7116 [address] RoadDublin [place] [id number] Protein.monoclonal/Pr otein.total Elph mass fraction (U) Not Observed Normal [facility] Work Phone: Comment on above: PATIENT NOT FASTINGP ERFORMED BY: CB [facility] Fwhhhm3343 Bush RoadDublin [place] [id number] Vitamin D Hydroxy ([id number])Ord ered By: Grid Operator on 03-04-2017 25-Hydroxyvitamin D2+25-Hydroxyvitamin D3 mass conc 54.5 ng/mL Normal 30.0-100.0 [facility] Work Phone: Comment on above: Vitamin D deficiency has been defined by the [place] ofMedicine and an Endocrine Society practice guideline as alevel of serum 25-OH vitamin D less than 20 ng/mL (1,2).The Endocrine Society went on to further define vitamin Dinsufficiency as a level between 21 and 29 ng/mL (2).1. IOM ([place] of Medicine). 2010. Dietary reference intakes for calcium and D. [place]: The National Academies Press.2. Deborah MF, [place], Shashi JAIN, et al. Evaluation, treatment, and prevention of vitamin D deficiency: an Endocrine Society clinical practice guideline. JCEM. 2010; 96(7):1911-30. PATIENT NOT FASTINGP ERFORMED BY: CB [facility] Nstjfx4887 Bush RoadDublin [place] [id number] HgA1C , Office ([id number])Ordere d By: Lola Lara on 02-11-2017 Hemoglobin A1c/Hemoglobin.total mass fraction (Bld) 5.5 % Normal 4.6 - 7.1 Comprehensiv e Internal Medicine Work Phone: Platelet Count, Citrated ([phone])Ordered By: Grid Operator on 02-07-2017 Platelets (Bld) [#/Vol] 73 {X10E3/uL} Abnormal 150-379 [facility] Work Phone: Comment on above: ADDENDA: per df ok t ill tomorrow PATIENT NOT FASTINGP ERFORMED BY: [facility] Yplzbb2521 [facility] [id number] Platelets Auto #/vol (Bld) 73 {X10E3/uL} Abnormal 150-379 [facility] Work Phone: Comment on above: ADDENDA: per df ok t ill tomorrow CBC W/Diff, AutomatedOrdered By: Grid Operator on 02-03-2017 Absolute Lymph 0.87 {X10_3/ul} Normal 0.83-4.51 Compr ehensive Internal Medicine Work Phone: Absolute Neut 3.3 {X10_3/uL} Normal 2.0-7.7 Compreh ensive Internal Medicine Work Phone: Comment on above: [facility] [address] [place], [address] Basophils/100 WBC (Bld) 0.4 % Normal 0-1 [facility] Work Phone: Comment on above: [facility] [address] [place], [address] Basophils/100 WBC Auto (Bld) 0.4 % Normal 0-1 [facility] Work Phone: Eosinophils/100 WBC (Bld) 2.7 % Normal 0-5 [facility] Work Phone: Comment on above: [facility] [address] [place], [address] Eosinophils/100 WBC Auto (Bld) 2.7 % Normal 0-5 [facility] Work Phone: Erythrocyte distribution width (RBC) [Ratio] 15.4 % Abnormal 11.6-14.6 [facility] Work Phone: Comment on above: [facility] [place], [address] Erythrocyte distribution width Auto Ratio (RBC) 15.4 % Abnormal 11.6-14.6 [facility] Work Phone: Hematocrit (Bld) [Volume fraction] 47.3 % Normal 40-54 [facility] Work Phone: Comment on above: [place] [address] [place], [address] Hematocrit Auto Volume Fraction (Bld) 47.3 % Normal 40-54 Comprehens kevin Internal Medicine Work Phone: Hemoglobin mass conc (Bld) 15.8 g/dL Normal 13.0-16.5 [facility] Work Phone: Comment on above: [place] [address] [place], [address] IM GRAN % 0.200 % Normal 0.0-0.9 [facility] Work Phone: Comment on above: IG% - Immature Granu locytes (promyelocytes, myelocytes andmetamyelocytes) > 1% indicates that a LEFT SHIFT is Present. [place] [address] [place], [address] Lymphocytes (Bld) [#/Vol] 0.87 {X10_3/ul} Normal 0.83-4.51 [facility] Work Phone: Comment on above: [place] [address] [place], [address] Lymphocytes Auto #/vol (Bld) 0.87 {X10_3/ul} Normal 0.83-4.51 [facility] Work Phone: Lymphocytes/100 WBC (Bld) 18.4 % Abnormal 19-41 [facility] Work Phone: Comment on above: [facility] [address] [place], [address] Lymphocytes/100 WBC Auto (Bld) 18.4 % Abnormal 19-41 [facility] Work Phone: MCH (RBC) [Entitic mass] 28.6 pg Normal 27.0-32.0 [facility] Work Phone: Comment on above: [facility] [address] [place], [address] MCH Auto Entitic mass (RBC) 28.6 pg Normal 27.0-32.0 [facility] Work Phone: MCHC (RBC) [Mass/Vol] 33.4 {g/gl} Normal 32-36 [facility] Internal Medicine Work Phone: Comment on above: [facility] [address] [place], [address] MCHC Auto mass conc (RBC) 33.4 {g/gl} Normal 32-36 [facility] Internal Medicine Work Phone: MCV (RBC) [Entitic vol] 85.5 fL Normal 80-94 [facility] Work Phone: Comment on above: [facility] [address] [place], [address] MCV Auto Entitic volume (RBC) 85.5 fL Normal 80-94 [facility] Work Phone: Monocytes/100 WBC Auto (Bld) 8.6 % Normal 0-10 [facility] Work Phone: Comment on above: [facility] [address] [place], [address] Neutrophils/100 WBC (Bld) 69.7 % Normal 47-70 [facility] Work Phone: Comment on above: [facility] [address] [place], [address] Neutrophils/100 WBC Auto (Bld) 69.7 % Normal 47-70 [facility] Work Phone: Platelet mean volume (Bld) [Entitic vol] 11.5 fL Normal 6.2-12.0 Comprehens e Internal Medicine Work Phone: Comment on above: [facility] [address] [place], [address] Platelet mean volume Auto Entitic volume (Bld) 11.5 fL Normal 6.2-12.0 [facility] Work Phone: Platelets (Bld) [#/Vol] 99 10*3/uL Abnormal 150-450 [facility] Work Phone: Comment on above: [facility] [address] [place], [address] Platelets Auto #/vol (Bld) 99 10*3/uL Abnormal 150-450 [facility] Work Phone: RBC (Bld) [#/Vol] 5.53 {M/mm3} Normal 4.6-6.2 [facility] Internal Medicine Work Phone: Comment on above: [facility] [address] [place], [address] RBC Auto #/vol (Bld) 5.53 {M/mm3} Normal 4.6-6.2 Co [facility] Internal Medicine Work Phone: RDW SD 47.8 fL Abnormal 35.1-43.9 [facility] Work Phone: Comment on above: [facility] [address] [place], [address] WBC (Bld) [#/Vol] 4.7 10*3/uL Normal 4.4-11.0 [facility] Internal Medicine Work Phone: Comment on above: [facility] [address] [place], [address] WBC Auto #/vol (Bld) 4.7 10*3/uL Normal 4.4-11.0 Com prehensive Internal Medicine Work Phone: CBC W/Diff, Automated 11.5 fL Normal 6.2-12.0 Com prehensive Internal Medicine Work Phone: CBC W/Diff, Automated 99 K/mm3 Abnormal 150-450 Com prehensive Internal Medicine Work Phone: CBC W/Diff, Automated 47.8 fL Abnormal 35.1-43.9 Com prehensive Internal Medicine Work Phone: CBC W/Diff, Automated 15.4 % Abnormal 11.6-14.6 [facility] prehensive Internal Medicine Work Phone: CBC W/Diff, Automated 33.4 {g/gl} Normal 32-36 Co [facility] Work Phone: CBC W/Diff, Automated 28.6 pg Normal 27.0-32.0 Com prehensive Internal Medicine Work Phone: CBC W/Diff, Automated 85.5 fL Normal 80-94 [facility] prehensive Internal Medicine Work Phone: CBC W/Diff, Automated 47.3 % Normal 40-54 Com prehensive Internal Medicine Work Phone: CBC W/Diff, Automated 15.8 g/dL Normal 13.0-16.5 [facility] prehensive Internal Medicine Work Phone: CBC W/Diff, Automated 5.53 {M/mm3} Normal 4.6-6.2 C omprehensive Internal Medicine Work Phone: CBC W/Diff, Automated 4.7 K/mm3 Normal 4.4-11.0 [facility] prehensive Internal Medicine Work Phone: CBC W/Diff, Automated 0.87 {X10_3/ul} Normal 0.83-4.51 [facility] Internal Medicine Work Phone: CBC W/Diff, Automated 3.3 {X10_3/uL} Normal 2.0-7.7 [facility] Work Phone: CBC W/Diff, Automated 0.200 % Normal 0.0-0.9 Com prehensive Internal Medicine Work Phone: Comment on above: IG% - Immature Granu locytes (promyelocytes, myelocytes andmetamyelocytes) > 1% indicates that a LEFT SHIFT is Present. CBC W/Diff, Automated 0.4 % Normal 0-1 Com prehensive Internal Medicine Work Phone: CBC W/Diff, Automated 2.7 % Normal 0-5 Com prehensive Internal Medicine Work Phone: CBC W/Diff, Automated 8.6 % Normal 0-10 Com prehensive Internal Medicine Work Phone: CBC W/Diff, Automated 18.4 % Abnormal 19-41 Com prehensive Internal Medicine Work Phone: CBC W/Diff, Automated 69.7 % Normal 47-70 Com prehensive Internal Medicine Work Phone: Comprehensive Metabolic Prof ilOrdered By: Grid Operator on 02-03-2017 Comprehensive metabolic 2000 panel 71 U/L Normal 45-117 Comprehensi ve Internal Medicine Work Phone: Comment on above: [facility] [address] [place], [place], [id number] Comprehensive metabolic 2000 panel 7.5 g/dL Normal 6.4-8.2 Comprehensi ve Internal Medicine Work Phone: Comment on above: [facility] [address] [place], [place], [id number] Comprehensive metabolic 2000 panel 48 mL/min Abnormal Comprehensi ve Internal Medicine Work Phone: Comment on above: GFR Calc [facility] [address] [place], [place], [id number] Comprehensive metabolic 2000 panel 31 mg/dL Abnormal 7-18 Comprehensi ve Internal Medicine Work Phone: Comment on above: [facility] [address] [place], [place], [address] Comprehensive metabolic 2000 panel 3.7 g/dL Normal 3.4-5.0 Comprehensi ve Internal Medicine Work Phone: Comment on above: [facility] [address] [place], [place], [id number] Comprehensive metabolic 2000 panel 1.79 mg/dL Abnormal 0.70-1.30 Comprehensi ve Internal Medicine Work Phone: Comment on above: The validity of the calculated GFR AND GFRAA in patients over70 years has not been determined. Clinical correlation isessential. [facility] [address] [place], [place], [id number] Comprehensive metabolic 2000 panel 10 1 Normal 5-15 Comprehensi ve Internal Medicine Work Phone: Comment on above: [facility] [address] [place], [place], [phone] Comprehensive metabolic 2000 panel 3.8 g/dL Abnormal 2.3-3.5 Comprehensi ve Internal Medicine Work Phone: Comment on above: [facility] [address] [place], [place], [id number] Comprehensive metabolic 2000 panel 1.0 {RATIO} Normal 0.9-2.4 Comprehensi ve Internal Medicine Work Phone: Comment on above: [facility] [address] [place], [place], [phone] Comprehensive metabolic 2000 panel 40 mL/min Abnormal Comprehensi ve Internal Medicine Work Phone: Comment on above: Non- GFR Calc [facility] [address] [place], [place], [id number] Comprehensive metabolic 2000 panel 25.0 mmol/L Normal 21.0-32.0 Comprehensi ve Internal Medicine Work Phone: Comment on above: [facility] [address] [place], [place], [phone] Comprehensive metabolic 2000 panel 107 mmol/L Normal 98-107 Comprehensi ve Internal Medicine Work Phone: Comment on above: [facility] [address] [place], [place], [address] Comprehensive metabolic 2000 panel 4.2 mmol/L Normal 3.5-5.1 Comprehensi ve Internal Medicine Work Phone: Comment on above: [facility] [address] [place], [place], [address] Comprehensive metabolic 2000 panel 142 mmol/L Normal 136-145 Comprehensi ve Internal Medicine Work Phone: Comment on above: [facility] [address] [place], [address] Comprehensive metabolic 2000 panel 100 mg/dL Normal 70-110 Comprehensi ve Internal Medicine Work Phone: Comment on above: [facility] [address] [place], [place], [address] Comprehensive metabolic 2000 panel 8.8 mg/dL Normal 8.5-10.1 Comprehensi ve Internal Medicine Work Phone: Comment on above: [facility] [address] [place], [place], [address] Comprehensive metabolic 2000 panel 0.80 mg/dL Normal 0.20-1.00 Comprehensi ve Internal Medicine Work Phone: Comment on above: [facility] [address] [place], [place], [address] Comprehensive metabolic 2000 panel 25 U/L Normal 15-37 Comprehensi ve Internal Medicine Work Phone: Comment on above: [facility] [address] [place], [address] Comprehensive metabolic 2000 panel 34 U/L Normal 12-78 Comprehensi ve Internal Medicine Work Phone: Comment on above: [facility] [address] [place], [place], [id number] Comprehensive metabolic 2000 panel 17.3 {RATIO} Normal 10-20 Comprehensi ve Internal Medicine Work Phone: Comment on above: [facility] [address] [place], [address] NMR LipoprofileOrdered By: Pedrito astudillo Department Director on 02-03-2017 Cholesterol in HDL mass conc 21.5 umol/L Abnormal [facility] Work Phone: Cholesterol in HDL mass conc 28 mg/dL Abnormal [facility] Work Phone: Cholesterol in LDL mass conc 57 mg/dL Normal 0-99 [facility] Work Phone: Comment on above: Optimal < 100 Above optimal 100 - 129 Borderline 130 - 159 High 160 - 189 Very high > 189LDL-C is inaccurate if patient is non-fasting. Cholesterol mass conc 125 mg/dL Normal 100-199 Com prehensive Internal Medicine Work Phone: CHOLESTEROL TOT 125 mg/dL Normal 100-199 Comprehen sive Internal Medicine Work Phone: HDL-C 28 mg/dL Abnormal [facility] Work Phone: HDL-P TOTAL 21.5 umol/L Abnormal Comprehensiv e Internal Medicine Work Phone: LD HD PARTICLES . Normal Comprehen [facility] Internal Medicine Work Phone: LDL SIZE 20.1 nm Normal [facility] Work Phone: Comment on above: INTERPRETATIVE INFORMATION PARTICLE CONCENTRATION AND SIZE <--Lower CVD Risk Higher CVD Risk--> LDL AND HDL PARTICLES Percentile in Reference Population HDL-P (total) High 75th 50th 25th Low >34.9 34.9 30.5 26.7 <26.7 Small LDL-P Low 25th 50th 75th High <117 [phone] >839 LDL Size <-Large (Pattern A)-> <-Small (Pattern B)-> 23.0 20.6 20.5 19.0 Small LDL-P and LDL Size are associated with CVD risk, butnot after LDL-P is taken into account.These assays were developed and their performancecharacteristics determined by [employer]. These assayshave not been cleared by the [place] Food and DrugAdministration. The clinical utility of these laboratoryvalues have not been fully established. LDL-C 57 mg/dL Normal 0-99 [facility] Work Phone: Comment on above: Optimal < 100 Above optimal 100 - 129 Borderline 130 - 159 High 160 - 189 Very high > 189LDL-C is inaccurate if patient is non-fasting. LDL-P 784 nmol/L Normal [facility] Work Phone: Comment on above: Low < 1000 Moderate 1000 - 1299 Borderline-High 1300 - 1599 High 1600 - 2000 Very High > 2000 LP-IR SCORE 71 1 Abnormal [facility] Internal [facility] Work Phone: Comment on above: INSULIN RESISTANCE Salud [place] <--Insulin Sensitive Insulin Resistant--> Percentile in Reference PopulationInsulin Resistance ScoreLP-IR Score Low 25th 50th 75th High <27 27 45 63 >63LP-IR Score is inaccurate if patient is non-fasting.The LP-IR score is a laboratory developed index that hasbeen associated with insulin resistance and diabetes riskand should be used as one component of a physician'sclinical assessment. The LP-IR score listed above has notbeen cleared by the [place] Food and Drug Administration.Performed at: [address] [id number] Director: Cristino Sarah MD, Phone: [phone] SMALL LDL-P 534 nmol/L Abnormal [facility] Work Phone: Triglyceride mass conc 198 mg/dL Abnormal 0-149 [facility] Work Phone: NMR Lipoprofile 71 1 Abnormal [facility] Internal Medicine Work Phone: Comment on above: INSULIN RESISTANCE Salud [place] <--Insulin Sensitive Insulin Resistant--> Percentile in Reference PopulationInsulin Resistance ScoreLP-IR Score Low 25th 50th 75th High <27 27 45 63 >63LP-IR Score is inaccurate if patient is non-fasting.The LP-IR score is a laboratory developed index that hasbeen associated with insulin resistance and diabetes riskand should be used as one component of a physician'sclinical assessment. The LP-IR score listed above has notbeen cleared by the [place] Food and Drug Administration.Performed at: [employer] [facility] [id number] Director: Cristino Sarah MD, Phone: [phone] [facility] (refer to re port for specific site)refer to report for address and phone number NMR Lipoprofile . Normal [facility] Internal Medicine Work Phone: Comment on above: [facility] (refer to re port for specific site)refer to report for address and phone number NMR Lipoprofile 20.1 nm Normal [facility] Internal Medicine Work Phone: Comment on above: INTERPRETATIVE INFORMATION PARTICLE CONCENTRATION AND SIZE <--Lower CVD Risk Higher CVD Risk--> LDL AND HDL PARTICLES Percentile in Reference Population HDL-P (total) High 75th 50th 25th Low >34.9 34.9 30.5 26.7 <26.7 Small LDL-P Low 25th 50th 75th High <117 117 527 839 >839 LDL Size <-Large (Pattern A)-> <-Small (Pattern B)-> 23.0 20.6 20.5 19.0 Small LDL-P and LDL Size are associated with CVD risk, butnot after LDL-P is taken into account.These assays were developed and their performancecharacteristics determined by [employer]. These assayshave not been cleared by the [place] Food and DrugAdministration. The clinical utility of these laboratoryvalues have not been fully established. [facility] (refer to re port for specific site)refer to report for address and phone number NMR Lipoprofile 534 nmol/L Abnormal [facility] Internal Medicine Work Phone: Comment on above: [facility] (refer to re port for specific site)refer to report for address and phone number NMR Lipoprofile 21.5 umol/L Abnormal [facility] Internal Medicine Work Phone: Comment on above: [facility] (refer to re port for specific site)refer to report for address and phone number NMR Lipoprofile 784 nmol/L Normal [facility] Internal Medicine Work Phone: Comment on above: Low < 1000 Moderate 1000 - 1299 Borderline-High 1300 - 1599 High 1600 - 2000 Very High > 2000 [facility] (refer to re port for specific site)refer to report for address and phone number NMR Lipoprofile 198 mg/dL Abnormal 0-149 [facility] Internal Medicine Work Phone: Comment on above: [facility] (refer to re port for specific site)refer to report for address and phone number NMR Lipoprofile 28 mg/dL Abnormal [facility] Internal Medicine Work Phone: Comment on above: [facility] (refer to re port for specific site)refer to report for address and phone number NMR Lipoprofile 57 mg/dL Normal 0-99 [facility] Internal Medicine Work Phone: Comment on above: Optimal < 100 Above optimal 100 - 129 Borderline 130 - 159 High 160 - 189 Very high > 189LDL-C is inaccurate if patient is non-fasting. [facility] (refer to re port for specific site)refer to report for address and phone number NMR Lipoprofile 125 mg/dL Normal 100-199 [facility] Internal Medicine Work Phone: Comment on above: [facility] (refer to re port for specific site)refer to report for address and phone number Thyroid Stim Hormone (TSH)Or dered By: Grid Operator on 02-03-2017 Thyrotropin Qn 1.14 {uIU/mL} Normal 0.358-3.74 Compreh ensive Internal Medicine Work Phone: Comment on above: [facility] [address] [place], [place], [id number] BLADDER TUROrdered By: Lily alvares Department Director on 10-11-2016 BLADDER TUR See Note Normal [facility] Work Phone: Comment on above: Patient: SHERRELL GENAO : 1945 (71/M) Acct Num: [id number] Phys: Osmin DODGE,Nicholas Unit Num: [id number] Loc: LABSPEC Specimen: [id number] Received: 10/11/16 - 1624 Spec Type: TURB TISSUES TISSUES: GROSS DESCRIPTION A - Received is one container labeled with the patient's name and designated bladder biopsy. The specimen consists of one minute fragment of christine soft tissue measuring <0.1 cm in greatest dimension. The specimen is totally submitted in one cassette. B - Received is one container labeled with the patient's name and designated bladder biopsy #2. The specimen consists of one minute fragment of christine soft tissue measuring <0.1 cm in greatest dimension. The specimen is totally submitted in one cassette. / SJ:regis 10/14/16 TC:5 CPT: 00478 x2 HEADER OPERATION: Cystoscopy with bladder biopsy and right retrograde pyelogram PRE-OP DIAGNOSIS: History of bladder cancer TISSUE SUBMITTED: A - Bladder biopsy, B - Bladder biopsy MICROSCOPIC DESCRIPTION Slides are reviewed. MICROSCOPIC DIAGNOSIS A. Urinary bladder, biopsy: Focal urothelial atypia, favor reactive. B. Urinary bladder, biopsy: Focal urothelial atypia, favor reactive. AM:regis 10/15/16 Signed Guzman Jackson 10/16/16 [facility] [address] [place], [address] CBC W/AUTO DIFF WBC (30891)O rdered By: Grid Operator on 10-01-2016 Basophils (Bld) [#/Vol] 0.0 {x10E3/uL} Normal 0.0-0.2 [facility] Work Phone: Comment on above: PATIENT NOT FASTINGP ERFORMED BY: Banyan Branch [address] [place] [address] [id number] BY: DailyDeal[address] [id number] Basophils Auto #/vol (Bld) 0.0 {x10E3/uL} Normal 0.0-0.2 [facility] Work Phone: Basophils/100 WBC (Bld) 0 % Normal [facility] Work Phone: Comment on above: PATIENT NOT FASTINGP ERFORMED BY: Despegar[employer] [place] [address] [id number] BY: [employer] [id number] Basophils/100 WBC Auto (Bld) 0 % Normal [facility] Work Phone: Eosinophils (Bld) [#/Vol] 0.3 {x10E3/uL} Normal 0.0-0.4 [facility] Work Phone: Comment on above: PATIENT NOT FASTINGP ERFORMED BY: Banyan Branch Kyofim[address] [id number] BY: DailyDeal[address] [id number] Eosinophils Auto #/vol (Bld) 0.3 {x10E3/uL} Normal 0.0-0.4 [facility] Work Phone: Eosinophils/100 WBC (Bld) 5 % Normal [facility] Work Phone: Comment on above: PATIENT NOT FASTINGP ERFORMED BY: [employer] [facility] CenterhiredMYway.comWeisman Children's Rehabilitation HospitalWkgrfe[address] [place] [address] [id number] BY: [employer] [id number] Eosinophils/100 WBC Auto (Bld) 5 % Normal [facility] Work Phone: Erythrocyte distribution width (RBC) [Ratio] 16.0 % Abnormal 12.3-15.4 [facility] Work Phone: Comment on above: PATIENT NOT FASTINGP ERFORMED BY: KEVIN DailyDeal Bnlmdn2833 [facility] [id number] BY: Intent[employer] [id number] Erythrocyte distribution width Auto Ratio (RBC) 16.0 % Abnormal 12.3-15.4 [facility] Work Phone: Hematocrit (Bld) [Volume fraction] 47.0 % Normal 37.5-51.0 [facility] Work Phone: Comment on above: PATIENT NOT FASTINGP ERFORMED BY: Banyan Branch Ammutc3583 [facility] [id number] BY: [employer] [id number] Hematocrit Auto Volume Fraction (Bld) 47.0 % Normal 37.5-51.0 [facility] Internal Medicine Work Phone: Hemoglobin mass conc (Bld) 15.5 g/dL Normal 12.6-17.7 [facility] Work Phone: Comment on above: PATIENT NOT FASTINGP ERFORMED BY: Banyan Branch Xeggvj0384 [facility] [id number] BY: DailyDeal[address] [id number] Immature granulocytes #/vol (Bld) 0.0 {x10E3/uL} Normal 0.0-0.1 [facility] Work Phone: Comment on above: PATIENT NOT FASTINGP ERFORMED BY: KEVIN [employer] Bzkyst0113 [facility] [id number] BY: DailyDeal[address] [id number] Immature granulocytes/100 WBC (Bld) 0 % Normal [facility] Work Phone: Comment on above: PATIENT NOT FASTINGP ERFORMED BY: KEVIN DailyDealTim[place] [id number] [facility] [id number] BY: DailyDeal[address] [id number] Lymphocytes (Bld) [#/Vol] 1.4 {x10E3/uL} Normal 0.7-3.1 [facility] Work Phone: Comment on above: PATIENT NOT FASTINGP ERFORMED BY: KEVIN [place] [address] [facility] [id number] BY: DailyDeal[address] [id number] Lymphocytes Auto #/vol (Bld) 1.4 {x10E3/uL} Normal 0.7-3.1 [facility] Work Phone: Lymphocytes/100 WBC (Bld) 20 % Normal [facility] Work Phone: Comment on above: PATIENT NOT FASTINGP ERFORMED BY: KEVIN [place] [address] [facility] [id number] BY: DailyDeal[address] [id number] Lymphocytes/100 WBC Auto (Bld) 20 % Normal [facility] Work Phone: MCH (RBC) [Entitic mass] 28.4 pg Normal 26.6-33.0 [facility] Work Phone: Comment on above: PATIENT NOT FASTINGP ERFORMED BY: [place] BranchTim[place] [address] [facility] [id number] BY: DailyDeal[address] [id number] MCH Auto Entitic mass (RBC) 28.4 pg Normal 26.6-33.0 [facility] Work Phone: MCHC (RBC) [Mass/Vol] 33.0 g/dL Normal 31.5-35.7 Com prehensive Internal Medicine Work Phone: Comment on above: PATIENT NOT FASTINGP ERFORMED BY: [employer]70 [facility] [id number] BY: [employer] [address] [id number] MCHC Auto mass conc (RBC) 33.0 g/dL Normal 31.5-35.7 [facility] Work Phone: MCV (RBC) [Entitic vol] 86 fL Normal 79-97 [facility] Work Phone: Comment on above: PATIENT NOT FASTINGP ERFORMED BY: [employer] BushSensiGenSelect Specialty Hospital - [facility] [id number] BY: [employer] [address] [id number] MCV Auto Entitic volume (RBC) 86 fL Normal 79-97 [facility] Work Phone: Monocytes (Bld) [#/Vol] 0.4 {x10E3/uL} Normal 0.1-0.9 [facility] Work Phone: Comment on above: PATIENT NOT FASTINGP ERFORMED BY: Popcorn5lin6370 [facility] [id number] BY: [employer] [address] [id number] Monocytes Auto #/vol (Bld) 0.4 {x10E3/uL} Normal 0.1-0.9 [facility] Work Phone: Monocytes/100 WBC (Bld) 6 % Normal [facility] Work Phone: Comment on above: PATIENT NOT FASTINGP ERFORMED BY: Popcorn5lin6370 [facility] [id number] BY: [employer] [address] [id number] Monocytes/100 WBC Auto (Bld) 6 % Normal [facility] Work Phone: Neutrophils (Bld) [#/Vol] 4.8 {x10E3/uL} Normal 1.4-7.0 [facility] Work Phone: Comment on above: PATIENT NOT FASTINGP ERFORMED BY: KEVIN DailyDealgina NathYvaahy7527 [facility] [id number] BY: DailyDeal[address] [id number] Neutrophils Auto #/vol (Bld) 4.8 {x10E3/uL} Normal 1.4-7.0 [facility] Work Phone: Neutrophils/100 WBC (Bld) 69 % Normal [facility] Work Phone: Comment on above: PATIENT NOT FASTINGP ERFORMED BY: KEVIN DailyDealgina NathRyelki[address] [place] [address] [id number] BY: DailyDeal[address] [id number] Neutrophils/100 WBC Auto (Bld) 69 % Normal [facility] Work Phone: Platelets (Bld) [#/Vol] 117 {x10E3/uL} Abnormal 150-379 [facility] Work Phone: Comment on above: PATIENT NOT FASTINGP ERFORMED BY: KEVIN Nath[address] [id number] BY: DailyDeal[address] [id number] Platelets Auto #/vol (Bld) 117 {x10E3/uL} Abnormal 150-379 [facility] Work Phone: RBC (Bld) [#/Vol] 5.46 {x10E6/uL} Normal 4.14-5.80 [facility] Internal Medicine Work Phone: Comment on above: PATIENT NOT FASTINGP ERFORMED BY: KEVIN DailyDeal[address] [id number] BY: [employer] [id number] RBC Auto #/vol (Bld) 5.46 {x10E6/uL} Normal 4.14-5.80 [facility] Work Phone: WBC (Bld) [#/Vol] 7.0 {x10E3/uL} Normal 3.4-10.8 Com prehensive Internal Medicine Work Phone: Comment on above: PATIENT NOT FASTINGP ERFORMED BY: [employer] [facility] Byxclg[address] [facility] [id number] BY: DailyDeal[address] [id number] WBC Auto #/vol (Bld) 7.0 {x10E3/uL} Normal 3.4-10.8 [facility] Work Phone: HgA1C , Office ([id number])Ordere d By: Lola Lara on 10-01-2016 Hemoglobin A1c/Hemoglobin.total mass fraction (Bld) 5.7 % Normal 4.6 - 7.1 Comprehensiv e Internal Medicine Work Phone: METABOLIC PANEL, COMPREHENSI VE ([id number])Ordered By: Grid Operator on 10-01-2016 Albumin mass conc 4.5 g/dL Normal 3.5-4.8 Compreh ensive Internal Medicine Work Phone: Comment on above: PATIENT NOT FASTINGP ERFORMED BY: [employer] [facility] Nlqowh3242 [facility] [id number] BY: DailyDeal[address] [id number] Albumin/Globulin mass ratio 1.8 {ratio} Normal 1.2-2.2 [facility] Work Phone: Comment on above: Please note refere nce interval change PATIENT NOT FASTINGP ERFORMED BY: [employer] [facility] Nndqlj[address] [facility] [id number] BY: DailyDeal[address] [id number] ALP enzyme act/vol 62 [iU]/L Normal 39-117 Compre hensive Internal Medicine Work Phone: Comment on above: PATIENT NOT FASTINGP ERFORMED BY: CB [facility] Zumdbk0213 Bush RoadDublin [place] [id number] BY: Lab[address] [id number] ALT enzyme act/vol 20 [iU]/L Normal 0-44 [facility] Internal Medicine Work Phone: Comment on above: PATIENT NOT FASTINGP ERFORMED BY: CB [facility] Djgshh0849 Bush RoadDublin [place] [id number] BY: [facility] [id number] AST enzyme act/vol 18 [iU]/L Normal 0-40 [facility] Internal Medicine Work Phone: Comment on above: PATIENT NOT FASTINGP ERFORMED BY: CB [facility] Inkiwp5187 Bush RoadDublin [place] [id number] BY: [address] [id number] Bilirubin mass conc 0.5 mg/dL Normal 0.0-1.2 Compr [facility] Internal [facility] Work Phone: Comment on above: PATIENT NOT FASTINGP ERFORMED BY: [facility] Mvepdg8248 Bush RoadDublin [place] [id number] BY: [address] [id number] Calcium mass conc 9.1 mg/dL Normal 8.6-10.2 Compreh [facility] Internal Medicine Work Phone: Comment on above: PATIENT NOT FASTINGP ERFORMED BY: CB [facility] Vgoayw2290 Bush RoadDublin [place] [id number] BY: [address] [id number] Chloride molar conc 103 mmol/L Normal 96-106 Compr ensive Internal Medicine Work Phone: Comment on above: PATIENT NOT FASTINGP ERFORMED BY: CB [facility] Wpadgp1382 Bush RoadDublin [place] [id number] BY: [address] [place] [id number] CO2 molar conc 23 mmol/L Normal 18-29 Comprehens kevin Internal Medicine Work Phone: Comment on above: PATIENT NOT FASTINGP ERFORMED BY: CB [facility] Dsjydx[address] [facility] [id number] BY: [facility] [id number] Creatinine mass conc 1.53 mg/dL Abnormal 0.76-1.27 Comp rehensive Internal Medicine Work Phone: Comment on above: PATIENT NOT FASTINGP ERFORMED BY: CB [facility] Dhrhul[address] [facility] [id number] BY: [facility] [id number] GFR/1.73 sq M predicted among blacks CKD-EPI vol rate/area (S/P/Bld) 52 mL/min/1.73 Abnormal Comprehensiv e Internal Medicine Work Phone: Comment on above: PATIENT NOT FASTINGP ERFORMED BY: CB [facility] Wspzsn8259 [facility] [id number] BY: [facility] [id number] GFR/1.73 sq M predicted among non-blacks CKD-EPI vol rate/area (S/P/Bld) 45 mL/min/1.73 Abnormal [facility] Work Phone: Comment on above: PATIENT NOT FASTINGP ERFORMED BY: CB [facility] Djlamv[address] [facility] [id number] BY: [facility] [address] [id number] Globulin (S) [Mass/Vol] 2.5 g/dL Normal 1.5-4.5 [facility] Work Phone: Comment on above: PATIENT NOT FASTINGP ERFORMED BY: CB [facility] Oahqlr[address] [facility] [id number] BY: [facility] [id number] Globulin Calculated mass conc (S) 2.5 g/dL Normal 1.5-4.5 [facility] Work Phone: Glucose mass conc 104 mg/dL Abnormal 65-99 Compreh ensive Internal Medicine Work Phone: Comment on above: PATIENT NOT FASTINGP ERFORMED BY: CB [facility] Ykqjlu[address] [facility] [id number] BY: [facility] [id number] Potassium molar conc 4.9 mmol/L Normal 3.5-5.2 Comp rehensive Internal Medicine Work Phone: Comment on above: PATIENT NOT FASTINGP ERFORMED BY: CB [facility] Dircby[address] [facility] [id number] BY: [facility] [id number] Protein mass conc 7.0 g/dL Normal 6.0-8.5 Compreh ensive Internal Medicine Work Phone: Comment on above: PATIENT NOT FASTINGP ERFORMED BY: CB [facility] Mgeagl8198 [facility] [id number] BY: Lab[address] [id number] Sodium molar conc 143 mmol/L Normal 134-144 Compreh ensive Internal Medicine Work Phone: Comment on above: PATIENT NOT FASTINGP ERFORMED BY: CB [facility] Cipjfz8195 [address] [facility] [place] [id number] BY: Lab[address] [id number] Urea nitrogen mass conc 22 mg/dL Normal 8-27 [facility] Work Phone: Comment on above: PATIENT NOT FASTINGP ERFORMED BY: CB [facility] Zsyrfj[address] [facility] [id number] BY: Lab[address] [id number] Urea nitrogen/Creatinine mass ratio 14 mg/mg Normal 10-22 [facility] Work Phone: Comment on above: PATIENT NOT FASTINGP ERFORMED BY: [employer]6370 [facility] [id number] BY: DailyDeal[address] [id number] PSA (PROSTATE SPECIFIC ANTIG EN) (V76.44)Ordered By: Grid Operator on 10-01-2016 Prostate specific Ag mass conc 1.0 ng/mL Normal 0.0-4.0 [facility] Work Phone: Comment on above: [facility] ECLIA methodol ogy. .According to the [place] [employer], Serum PSA shoulddecrease and remain at undetectable levels after radicalprostatectomy. The AUA defines biochemical recurrence as an initialPSA value 0.2 ng/mL or greater followed by a subsequent confirmatoryPSA value 0.2 ng/mL or greater.Values obtained with different assay methods or kits cannot be usedinterchangeably. Results cannot be interpreted as absolute evidenceof the presence or absence of malignant disease. copy to osmin; RAJ ENT NOT FASTINGPERFORMED BY: [employer]6370 [facility] [id number] BY: DailyDeal[address] [id number] TESTOSTERONE FREE (01053)Ord ered By: Grid Operator on 10-01-2016 Testosterone Free mass conc 10.7 pg/mL Normal 6.6-18.1 [facility] Work Phone: Comment on above: PATIENT NOT FASTINGP ERFORMED BY: [employer]6370 [facility] [id number] BY: DailyDeal[address] [id number] CYTOSPIN ON FLUIDOrdered By: Grid Operator on 09-16-2016 CYTOSPIN ON FLUID See Note Normal Compreh ensive Internal Medicine Work Phone: Comment on above: Patient: SHERRELL GENAO : 1945 (71/M) Acct Num: [id number] Phys: Osmin DODGE,Burak Sargent Unit Num: [id number] Loc: LABSPEC Specimen: [id number] Received: 09/16/16 - 1315 Spec Type: CYSPIN FL TISSUES TISSUES: COMMENT Please make reference to previous specimen ([id number]) bladder tumor, TUR with diagnosis of papillary urothelial carcinoma. Case has been reviewed in consultation with Dr. Jackson who concurs with the above diagnosis. IDC:AM CYTOLOGY GROSS Received is 60 ml of clear, dark gold fluid labeled with the patient's name and and designated per the requisition as urine. Submitted for cytology preparation. / 09/16/16 TC:5 CPT: 56987 CYTOLOGY STUDY Slides are reviewed. DIAGNOSIS CYTOLOGY Urine for cytology (cytospin): A few atypical urothelial cells noted, suspicious for urothelial malignancy. SJ:regis 09/17/16 HEADER OPERATION: Not noted PRE-OP DIAGNOSIS: Bladder CA C67.9 TISSUE SUBMITTED: Urine for cytology Signed Watson Allen 09/17/16 [facility] [address] [place], [address] Cytology, Body Fluid / CSFOr dered By: Grid Operator on 09-16-2016 Cytology report Cyto stain Doc (Body fld) SEE PATHOLOGY REPORT Normal [facility] Internal Medicine Work Phone: Comment on above: Specimen submitted t o Anatomical Pathology Department fortesting. Specimen Source: [facility] Gdjbtjzcvm4619 [place], [place], [id number] HgA1C , Office ([id number])Ordere d By: Lola Lara on 06-18-2016 Hemoglobin A1c/Hemoglobin.total mass fraction (Bld) 10.6 % Abnormal 4.6 - 7.1 Comprehensiv e Internal Medicine Work Phone: CBC W/Diff, AutomatedOrdered By: Grid Operator on 06-13-2016 Absolute Lymph 1.34 {X10_3/ul} Normal 0.83-4.51 Compr ensive Internal Medicine Work Phone: Absolute Neut 3.6 {X10_3/uL} Normal 2.0-7.7 Compreh ensive Internal Medicine Work Phone: Comment on above: [facility] [address] [place], [address] Basophils/100 WBC (Bld) 0.4 % Normal 0-1 [facility] Work Phone: Comment on above: [facility] [address] [place], [address] Basophils/100 WBC Auto (Bld) 0.4 % Normal 0-1 [facility] Work Phone: Eosinophils/100 WBC (Bld) 2.9 % Normal 0-5 [facility] Work Phone: Comment on above: [facility] [address] [place], [address] Eosinophils/100 WBC Auto (Bld) 2.9 % Normal 0-5 [facility] Work Phone: Erythrocyte distribution width (RBC) [Ratio] 14.4 % Normal 11.6-14.6 [facility] Work Phone: Comment on above: [facility] [address] [place], [address] Erythrocyte distribution width Auto Ratio (RBC) 14.4 % Normal 11.6-14.6 [facility] Work Phone: Hematocrit (Bld) [Volume fraction] 45.3 % Normal 40-54 [facility] Work Phone: Comment on above: [facility] [address] [place], [address] Hematocrit Auto Volume Fraction (Bld) 45.3 % Normal 40-54 Comprehens kevin Internal Medicine Work Phone: Hemoglobin mass conc (Bld) 14.9 g/dL Normal 13.0-16.5 [facility] Work Phone: Comment on above: [place] [address] [place], [address] IM GRAN % 0.500 % Normal 0.0-0.9 [facility] Work Phone: Comment on above: IG% - Immature Granu locytes (promyelocytes, myelocytes andmetamyelocytes) > 1% indicates that a LEFT SHIFT is Present. [place] [address] [place], [address] Lymphocytes (Bld) [#/Vol] 1.34 {X10_3/ul} Normal 0.83-4.51 [facility] Work Phone: Comment on above: [place] [address] [place], [address] Lymphocytes Auto #/vol (Bld) 1.34 {X10_3/ul} Normal 0.83-4.51 [facility] Work Phone: Lymphocytes/100 WBC (Bld) 24.0 % Normal 19-41 [facility] Work Phone: Comment on above: [place] [address] [place], [address] Lymphocytes/100 WBC Auto (Bld) 24.0 % Normal 19-41 [facility] Work Phone: MCH (RBC) [Entitic mass] 28.4 pg Normal 27.0-32.0 [facility] Work Phone: Comment on above: [place] [address] [place], [address] MCH Auto Entitic mass (RBC) 28.4 pg Normal 27.0-32.0 [facility] Work Phone: MCHC (RBC) [Mass/Vol] 32.9 {g/gl} Normal 32-36 Co mprehensive Internal Medicine Work Phone: Comment on above: [place] [address] [place], [address] MCHC Auto mass conc (RBC) 32.9 {g/gl} Normal 32-36 [facility] Work Phone: MCV (RBC) [Entitic vol] 86.3 fL Normal 80-94 [facility] Work Phone: Comment on above: [facility] [address] [place], [address] MCV Auto Entitic volume (RBC) 86.3 fL Normal 80-94 [facility] Work Phone: Monocytes/100 WBC Auto (Bld) 7.5 % Normal 0-10 [facility] Work Phone: Comment on above: [facility] [address] [place], [address] Neutrophils/100 WBC (Bld) 64.7 % Normal 47-70 [facility] Work Phone: Comment on above: [place] [address] [place], [address] Neutrophils/100 WBC Auto (Bld) 64.7 % Normal 47-70 [facility] Work Phone: Platelet mean volume (Bld) [Entitic vol] 10.6 fL Normal 6.2-12.0 Comprehensiv e Internal Medicine Work Phone: Comment on above: [place] [address] [place], [address] Platelet mean volume Auto Entitic volume (Bld) 10.6 fL Normal 6.2-12.0 [facility] Work Phone: Platelets (Bld) [#/Vol] 143 10*3/uL Abnormal 150-450 [facility] Work Phone: Comment on above: [facility] [address] [place], [address] Platelets Auto #/vol (Bld) 143 10*3/uL Abnormal 150-450 [facility] Work Phone: RBC (Bld) [#/Vol] 5.25 {M/mm3} Normal 4.6-6.2 [facility] Work Phone: Comment on above: [facility] [address] [place], [place], [phone] RBC Auto #/vol (Bld) 5.25 {M/mm3} Normal 4.6-6.2 [facility] Work Phone: RDW SD 44.8 fL Abnormal 35.1-43.9 [facility] Internal Medicine Work Phone: Comment on above: [facility] [address] [place], [address] WBC (Bld) [#/Vol] 5.6 10*3/uL Normal 4.4-11.0 [facility] Internal [facility] Work Phone: Comment on above: [facility] [address] [place], [address] WBC Auto #/vol (Bld) 5.6 10*3/uL Normal 4.4-11.0 Com prehensive Internal Medicine Work Phone: CBC W/Diff, Automated 64.7 % Normal 47-70 [facility] prehensive Internal Medicine Work Phone: CBC W/Diff, Automated 10.6 fL Normal 6.2-12.0 [facility] prehensive Internal Medicine Work Phone: CBC W/Diff, Automated 143 K/mm3 Abnormal 150-450 Com prehensive Internal Medicine Work Phone: CBC W/Diff, Automated 44.8 fL Abnormal 35.1-43.9 [facility] prehensive Internal Medicine Work Phone: CBC W/Diff, Automated 14.4 % Normal 11.6-14.6 [facility] prehensive Internal Medicine Work Phone: CBC W/Diff, Automated 32.9 {g/gl} Normal 32-36 [facility] Work Phone: CBC W/Diff, Automated 28.4 pg Normal 27.0-32.0 Com prehensive Internal Medicine Work Phone: CBC W/Diff, Automated 86.3 fL Normal 80-94 Com prehensive Internal Medicine Work Phone: CBC W/Diff, Automated 45.3 % Normal 40-54 Com prehensive Internal Medicine Work Phone: CBC W/Diff, Automated 14.9 g/dL Normal 13.0-16.5 Com prehensive Internal Medicine Work Phone: CBC W/Diff, Automated 5.25 {M/mm3} Normal 4.6-6.2 C omprehensive Internal Medicine Work Phone: CBC W/Diff, Automated 5.6 K/mm3 Normal 4.4-11.0 Com prehensive Internal Medicine Work Phone: CBC W/Diff, Automated 0.4 % Normal 0-1 Com prehensive Internal Medicine Work Phone: CBC W/Diff, Automated 7.5 % Normal 0-10 [facility] prehensive Internal Medicine Work Phone: CBC W/Diff, Automated 0.500 % Normal 0.0-0.9 [facility] prehensive Internal Medicine Work Phone: Comment on above: IG% - Immature Granu locytes (promyelocytes, myelocytes andmetamyelocytes) > 1% indicates that a LEFT SHIFT is Present. CBC W/Diff, Automated 2.9 % Normal 0-5 Com prehensive Internal Medicine Work Phone: CBC W/Diff, Automated 24.0 % Normal 19-41 Com prehensive Internal Medicine Work Phone: CBC W/Diff, Automated 1.34 {X10_3/ul} Normal 0.83-4.51 [facility] Work Phone: CBC W/Diff, Automated 3.6 {X10_3/uL} Normal 2.0-7.7 [facility] Work Phone: Comprehensive Metabolic Prof ilOrdered By: Grid Operator on 06-13-2016 Comprehensive metabolic 2000 panel 4.3 mmol/L Normal 3.5-5.1 Comprehensi ve Internal Medicine Work Phone: Comment on above: [facility] [address] [place], [place], [address] Comprehensive metabolic 2000 panel 67 U/L Normal 45-117 Comprehensi ve Internal Medicine Work Phone: Comment on above: [facility] [address] [place], [place], [address] Comprehensive metabolic 2000 panel 102 mmol/L Normal 98-107 Comprehensi ve Internal Medicine Work Phone: Comment on above: [facility] [address] [place], [place], [address] Comprehensive metabolic 2000 panel 27.0 mmol/L Normal 21.0-32.0 Comprehensi ve Internal Medicine Work Phone: Comment on above: [facility] [address] [place], [place], [address] Comprehensive metabolic 2000 panel 9 1 Normal 5-15 Comprehensi ve Internal Medicine Work Phone: Comment on above: [facility] [address] [place], [place], [phone] Comprehensive metabolic 2000 panel 1.0 {RATIO} Normal 0.9-2.4 Comprehensi ve Internal Medicine Work Phone: Comment on above: [facility] [address] [place], [place], [address] Comprehensive metabolic 2000 panel 3.5 g/dL Normal 3.4-5.0 Comprehensi ve Internal Medicine Work Phone: Comment on above: [facility] [address] [place], [place], [phone] Comprehensive metabolic 2000 panel 31 U/L Normal 12-78 Comprehensi ve Internal Medicine Work Phone: Comment on above: [facility] [address] [place], [place], [phone] Comprehensive metabolic 2000 panel 0.50 mg/dL Normal 0.20-1.00 Comprehensi ve Internal Medicine Work Phone: Comment on above: [facility] [address] [place], [place], [address] Comprehensive metabolic 2000 panel 7.1 g/dL Normal 6.4-8.2 Comprehensi ve Internal Medicine Work Phone: Comment on above: [facility] [address] [place], [place], [address] Comprehensive metabolic 2000 panel 138 mmol/L Normal 136-145 Comprehensi ve Internal Medicine Work Phone: Comment on above: [facility] [address] [place], [place], [address] Comprehensive metabolic 2000 panel 12.0 {RATIO} Normal 10-20 Comprehensi ve Internal Medicine Work Phone: Comment on above: [facility] [address] [place], [place], [phone] Comprehensive metabolic 2000 panel 8.6 mg/dL Normal 8.5-10.1 Comprehensi ve Internal Medicine Work Phone: Comment on above: [facility] [address] [place], [place], [phone] Comprehensive metabolic 2000 panel 18 U/L Normal 15-37 Comprehensi ve Internal Medicine Work Phone: Comment on above: [facility] [address] [place], [place], [address] Comprehensive metabolic 2000 panel 3.6 g/dL Abnormal 2.3-3.5 Comprehensi ve Internal Medicine Work Phone: Comment on above: [facility] [address] [place], [address] Comprehensive metabolic 2000 panel 50 mL/min Abnormal Comprehensi ve Internal Medicine Work Phone: Comment on above: GFR Calc [facility] [address] [place], [address] Comprehensive metabolic 2000 panel 1.75 mg/dL Abnormal 0.70-1.30 Comprehensi ve Internal Medicine Work Phone: Comment on above: The validity of the calculated GFR AND GFRAA in patients over70 years has not been determined. Clinical correlation isessential. [facility] [address] [place], [place], [phone] Comprehensive metabolic 2000 panel 21 mg/dL Abnormal 7-18 Comprehensi ve Internal Medicine Work Phone: Comment on above: [facility] [address] [place], [place], [phone] Comprehensive metabolic 2000 panel 240 mg/dL Abnormal 70-110 Comprehensi ve Internal Medicine Work Phone: Comment on above: Glucose result great er than or equal to 200 mg/dLsuggests DIABETES MELLITUS per A.D.A. criteria. [place] [address] [place], [place], [phone] Comprehensive metabolic 2000 panel 41 mL/min Abnormal Comprehensi ve Internal Medicine Work Phone: Comment on above: Non- GFR Calc [facility] [address] [place], [place], [phone] Lipid ProfileOrdered By: Lencho tem Department Director on 06-13-2016 Cholesterol in HDL mass conc 31 mg/dL Abnormal [facility] Work Phone: Comment on above: The drugs N-Acetylcy steine and Metamizole may falsely deressthis assay. Reference Range HDL <40 mg/dL Low HDL Cholesterol HDL >or= 60 mg/dL High HDL Cholesterol [facility] [address] [place], [place], [phone] Cholesterol in LDL mass conc 51 mg/dL Normal 0-130 [facility] Work Phone: Cholesterol in LDL mass conc 51 mg/dL Normal 0-130 [facility] Work Phone: Comment on above: [facility] [address] [place], [place], [address] Cholesterol in VLDL mass conc 45 mg/dL Abnormal 5-40 [facility] Work Phone: Comment on above: [facility] [address] [place], [address] Cholesterol mass conc 127 mg/dL Normal Com prehensive Internal Medicine Work Phone: Comment on above: <200 mg/dL Desirable 200-240 mg/dL Borderline >240 mg/dL High Risk [facility] [address] [place], [place], [phone] Triglyceride mass conc 224 mg/dL Abnormal [facility] Work Phone: Comment on above: The drugs N-Acetylcy steine and Metamizole may falsely deressthis assay.Serum Triglycerides Reference Interval Normal <150 mg/dL Borderline high 150 - 199 mg/dL High 200 - 499 mg/dL Very High > or = 500 mg/dL [facility] [address] [place], [place], [phone] Lipid Profile 127 mg/dL Normal Comprehensi ve Internal Medicine Work Phone: Comment on above: <200 mg/dL Desirable 200-240 mg/dL Borderline >240 mg/dL High Risk [facility] [address] [place], [place], [phone] Lipid Profile 51 mg/dL Normal 0-130 Comprehensi ve Internal Medicine Work Phone: Comment on above: [facility] [address] [place], [place], [phone] Lipid Profile 31 mg/dL Abnormal Comprehensi ve Internal Medicine Work Phone: Comment on above: The drugs N-Acetylcy steine and Metamizole may falsely deressthis assay. Reference Range HDL <40 mg/dL Low HDL Cholesterol HDL >or= 60 mg/dL High HDL Cholesterol [facility] [address] [place], [address] Lipid Profile 224 mg/dL Abnormal Comprehensi ve Internal Medicine Work Phone: Comment on above: The drugs N-Acetylcy steine and Metamizole may falsely deressthis assay.Serum Triglycerides Reference Interval Normal <150 mg/dL Borderline high 150 - 199 mg/dL High 200 - 499 mg/dL Very High > or = 500 mg/dL [facility] [address] [place], [address] Lipid Profile 45 mg/dL Abnormal 5-40 Comprehensi ve Internal Medicine Work Phone: Comment on above: [facility] [address] [place], [place], [address] MicroalbOrdered By: Ramakrishna waters on 06-13-2016 Creatinine mass conc 1072.4 {mg/g_CRE} Abnormal [facility] Work Phone: MALB:CREAT 1072.4 {mg/g_CRE} Abnormal Compreh ensive Internal Medicine Work Phone: MICROALBUMIN,UR 1630.0 mg/L Normal Comprehe nsive Internal Medicine Work Phone: UR CREAT 152.00 mg/dL Normal Comprehensiv e Internal Medicine Work Phone: Microalb 1072.4 {mg/g_CRE} Abnormal Compreh ensive Internal Medicine Work Phone: Comment on above: [facility] [address] [place], [address] Microalb 1630.0 mg/L Normal [facility] Work Phone: Comment on above: [facility] [address] [place], [address] Microalb 152.00 mg/dL Normal Comprehensiv e Internal Medicine Work Phone: Comment on above: [facility] [address] [place], [place], [address] Thyroid Stim Hormone (TSH)Or dered By: Grid Operator on 06-13-2016 Thyrotropin Qn 1.06 {uIU/mL} Normal 0.358-3.74 Compreh ensive Internal Medicine Work Phone: Comment on above: [facility] [address] [place], [place], [phone] BLADDER TUROrdered By: Lily alvares Department Director on 02-16-2016 BLADDER TUR See Note Normal [facility] Work Phone: Comment on above: Patient: SHERRELL GENAO : 1945 (70/M) Acct Num: [id number] Phys: Osmin DODGE,Burak Sargent Unit Num: [id number] Loc: [facility] Specimen: [id number] Received: 02/19/16748 Spec Type: TURB TISSUES TISSUES: COMMENT Please make reference to previous cytology ([id number]) urine with diagnosis of urothelial cells in clusters noted and ([id number]) mild atypical urothelial cells noted. Case has been reviewed in consultation with Dr. Jackson who concurs with the above diagnosis. IDC:AM GROSS DESCRIPTION Received is one container labeled with the patient name and designated bladder tumor. The specimen consists of multiple irregular fragments of light christine softtissue that in aggregate measure 2.5 x 1 x 0.3 cm. The specimen is totally submitted in one cassette. / SJ:regis 02/19/16 TC:0 CPT:12732 HEADER OPERATION: Cysto, TUR bladder tumor, [employer] PRE-OP DIAGNOSIS: Bladder cancer TISSUE SUBMITTED: Bladder tumor MICROSCOPIC DESCRIPTION Slides are reviewed. MICROSCOPIC DIAGNOSIS Bladder tumor, TUR: Papillary urothelial carcinoma. See cancer summary below. SJ:regis 02/20/16 BLADDER CANCER (TUR) SUMMARY: Procedure - TURBT Histologic type - urothelial (transitional cell) carcinoma Associated epithelial lesions - none identified Histologic grade, urothelial carcinoma (WHO 2004/ISUP) - low grade (2/3) Tumor configuration - papillary Adequacy of material for determining muscularis propria invasion - muscularispropria (detrusor muscle) is not identified. Lymph-Vascular invasion - not identified Microscopic extent of tumor - noninvasive papillary carcinoma Additional pathologic findings - mild chronic inflammation The above summary is in compliance with [employer] (CAP) Cancer Protocols Checklist and [place] Joint Committee on Cancer (AJCC), Staging Manual, 7th Ed. Signed Watson Villalbain 02/20/16 [facility] [address] [place], [place], [id number] Bedside GlucoseOrdered By: Pedrito ystem Department Director on 02-16-2016 BEDSIDE GLU 234 mg/dL Abnormal 70-110 [facility] Work Phone: Comment on above: Policy and Physician s Orders followedMANAGEMENT OF PATIENT CARE PER NURSING PROTOCOL BEDSIDE GLU 237 mg/dL Abnormal 70-110 [facility] Work Phone: Comment on above: MANAGEMENT OF PATIEN T CARE PER NURSING PROTOCOL Bedside Glucose 237 mg/dL Abnormal 70-110 Comprehen [facility] Internal [facility] Work Phone: Comment on above: MANAGEMENT OF PATIEN T CARE PER NURSING PROTOCOL [facility] [address] [place] [address] Bedside Glucose 234 mg/dL Abnormal 70-110 Comprehen [facility] Internal Medicine Work Phone: Comment on above: Policy and Physician s Orders followedMANAGEMENT OF PATIENT CARE PER NURSING PROTOCOL [facility] [address] [place] [address] Basic Metabolic Profile (BMP )Ordered By: Grid Operator on 02-09-2016 Basic metabolic 2000 panel 24 mg/dL Abnormal 7-18 [facility] Work Phone: Comment on above: [facility] [address] [place], [address] Basic metabolic 2000 panel 46 mL/min Abnormal [facility] Work Phone: Comment on above: GFR Calc [facility] [address] [place], [address] Basic metabolic 2000 panel 38 mL/min Abnormal [facility] Work Phone: Comment on above: Non- GFR Calc [facility] [address] [place], [place], [phone] Basic metabolic 2000 panel 106 mmol/L Normal 98-107 [facility] Work Phone: Comment on above: [facility] [address] [place], [place], [phone] Basic metabolic 2000 panel 27.0 mmol/L Normal 21.0-32.0 [facility] Work Phone: Comment on above: [facility] [address] [place], [place], [id number] Basic metabolic 2000 panel 8.6 mg/dL Normal 8.5-10.1 [facility] Work Phone: Comment on above: [facility] [address] [place], [place], [phone] Basic metabolic 2000 panel 12.8 {RATIO} Normal 10-20 [facility] Work Phone: Comment on above: [facility] [address] [place], [place], [address] Basic metabolic 2000 panel 249 mg/dL Abnormal 70-110 [facility] Work Phone: Comment on above: Glucose result great er than or equal to 200 mg/dLsuggests DIABETES MELLITUS per A.D.A. criteria. [facility] [address] [place], [place], [address] Basic metabolic 2000 panel 6 1 Normal 5-15 [facility] Work Phone: Comment on above: [facility] [address] [place], [place], [address] Basic metabolic 2000 panel 1.88 mg/dL Abnormal 0.70-1.30 [facility] Work Phone: Comment on above: The validity of the calculated GFR AND GFRAA in patients over70 years has not been determined. Clinical correlation isessential. [facility] [address] [place], [address] Basic metabolic 2000 panel 4.8 mmol/L Normal 3.5-5.1 [facility] Work Phone: Comment on above: [facility] [address] [place], [place], [address] Basic metabolic 2000 panel 139 mmol/L Normal 136-145 [facility] Work Phone: Comment on above: [facility] [address] [place], [place], [phone] Basic metabolic 2000 panel 37.75 ml/min Normal [facility] Work Phone: Comment on above: [facility] [address] [place], [place], [address] Hemoglobin V8pAivbjpl By: Sy stem Department Director on 02-09-2016 Hemoglobin A1c/Hemoglobin.total mass fraction (Bld) 8.0 % Abnormal 4.2-6.3 Comprehensiv e Internal Medicine Work Phone: Comment on above: [facility] [address] [place], [place], [address] Serum Creatinine AND GFROrde red By: Grid Operator on 01-30-2016 CREAT,SERUM 1.89 mg/dL Abnormal 0.70-1.30 [facility] Work Phone: Comment on above: The validity of the calculated GFR AND GFRAA in patients over70 years has not been determined. Clinical correlation isessential. Creatinine mass conc 1.89 mg/dL Abnormal 0.70-1.30 Comp rehensive Internal Medicine Work Phone: Comment on above: The validity of the calculated GFR AND GFRAA in patients over70 years has not been determined. Clinical correlation isessential. EST GFR 38 mL/min Abnormal [facility] Work Phone: Comment on above: Non- GFR Calc EST GFR - AA 46 mL/min Abnormal Comprehensiv e Internal Medicine Work Phone: Comment on above: GFR Calc GFR/1.73 sq M predicted among non-blacks MDRD vol rate/area (S/P/Bld) 38 mL/min/{1.73_m2} Abnormal Comprehe nsive Internal Medicine Work Phone: Comment on above: Non- GFR Calc Serum Creatinine AND GFR 1.89 mg/dL Abnormal 0.70-1.30 [facility] Work Phone: Comment on above: The validity of the calculated GFR AND GFRAA in patients over70 years has not been determined. Clinical correlation isessential. [facility] [address] [place], [place], [address] Serum Creatinine AND GFR 38 mL/min Abnormal [facility] Work Phone: Comment on above: Non- GFR Calc [facility] [address] [place], [place], [address] Serum Creatinine AND GFR 46 mL/min Abnormal [facility] Work Phone: Comment on above: GFR Calc [facility] [address] [place], [place], [address] CYTOSPIN ON FLUIDOrdered By: Grid Operator on 01-23-2016 CYTOSPIN ON FLUID See Note Normal Compreh ensive Internal Medicine Work Phone: Comment on above: Patient: SHERRELL GENAO : 1945 (70/M) Acct Num: [id number] Phys: Osmin DODGE,Nicholas Unit Num: [id number] Loc: [facility] Specimen: [id number] Received: 01/23/16 - 1322 Spec Type: CYSPIN FL TISSUES TISSUES: COMMENT Please make reference to previous specimen ([id number]) urine for cytology with diagnosis of urothelial cells in clusters present. Clinical correlation and appropriate follow up are necessary. CYTOLOGY GROSS Received is 50 ml of clear gold fluid labeled with the patient's name and and designated per the requisition as urine. Submitted for cytology preparation. 01/23/16 TC:5 CPT:62264 CYTOLOGY STUDY Slides are reviewed. DIAGNOSIS CYTOLOGY Urine for cytology (cytospin): Mild atypical urothelial cells noted. SJ:regis 01/24/16 HEADER OPERATION: Not noted PRE-OP DIAGNOSIS: History kidney cancer 285.528 TISSUE SUBMITTED: Urine for cytology Signed Watson Allen 01/24/16 [facility] [address] [place], [address] CYTOSPIN ON FLUIDOrdered By: Grid Operator on 12-26-2015 CYTOSPIN ON FLUID See Note Normal Compreh ensive Internal Medicine Work Phone: Comment on above: Patient: SHERRELL GENAO : 1945 (70/M) Acct Num: [id number] Phys: Osmin DODGE,Burak Sargent Unit Num: [id number] Loc: [facility] Specimen: [id number] Received: 12/26/151329 Spec Type: CYSPIN FL TISSUES TISSUES: COMMENT Rare urothelial cells in clusters are present and may represent a low grade urothelial neoplasm, instrumentation or inflammation. Clinical correlation is suggested. CULTURE RESULTS No results available. CYTOLOGY GROSS Received is 50 ml of clear gold fluid labeled with the patient's name and and designated per the requisition as urine. Submitted for cytology preparation. / 12/26/15 TC:5 CPT:13254 CYTOLOGY STUDY Slides are reviewed. DIAGNOSIS CYTOLOGY Urine for cytology (cytospins): Urothelial cells in clusters present AM: 12/27/15 HEADER OPERATION: Not noted PRE-OP DIAGNOSIS: Hematuria TISSUE SUBMITTED: Urine cytology Signed Guzman Manuel 12/27/15 [facility] [address] [place], [address] PSA,Total- DiagnosticOrdered By: Grid Operator on 12-20-2015 PSA, DIAGNOSTIC 0.79 ng/mL Normal 0.0-4.0 Comprehen sive Internal Medicine Work Phone: Comment on above: This test was perfor med using the TPSA assay method for theDimension chemistry system. Values obtained with differentassay methods cannot be used interchangably.When changing PSA assays in the course of monitoring apatient, additional sequential testing should be carriedout to confirm baseline values. PSA,Total- Diagnostic 0.79 ng/mL Normal 0.0-4.0 [facility] prehensive Internal Medicine Work Phone: Comment on above: This test was perfor med using the TPSA assay method for theDimension chemistry system. Values obtained with differentassay methods cannot be used interchangably.When changing PSA assays in the course of monitoring apatient, additional sequential testing should be carriedout to confirm baseline values. [facility] [address] [place], [address] COLON BIOPSY (CHOOSE SITE)Or dered By: Grid Operator on 10-10-2015 COLON BIOPSY (CHOOSE SITE) See Note Normal [facility] Work Phone: Comment on above: Patient: SHERRELL GENAO : 1945 (70/M) Acct Num: [id number] Phys: Wolf Gaxiola Unit Num: [id number] Loc: LABSPEC Specimen: [id number] Received: 10/10/15 - 160 Spec Type: COLON BX TISSUES TISSUES: GROSS DESCRIPTION A. Received is one container labeled with the patient name and designated polyps biopsies and polyp cecum. The specimen consists of a christine-pink polyp measuring 0.9 x 0.6 x 0.4 cm. The polyp is bisected. Also present in the container are multiple fragments of christine-pink soft tissue in aggregate 1 x 0.5 x 0.2 cm. The entire specimen is submitted in one cassette. B. Received is one container labeled with the patient name and designated transverse polyp. The specimen consists of two pieces of christine-pink polyp measuring 1 x 0.8 x 0.6 cm and 1 x1 x 0.7 cm. Both pieces are bisected. The entire specimen is submitted in one cassette. / LUIS:regis 10/11/15 TC:1 CPT:77747 x2 HEADER OPERATION: Colonoscopy with biopsy and polypectomy PRE-OP DIAGNOSIS: High risk screening/ polyp TISSUE SUBMITTED: A - Polyps biopsy and polyp cecum, rule out adenoma, B - Transverse polyps, rule out adenoma MICROSCOPIC DESCRIPTION Slides are reviewed. MICROSCOPIC DIAGNOSIS A. Cecal polyps, biopsy: Fragments of tubular adenoma. B. Transverse colon polyps, biopsy: Fragments of tubular adenoma. AM:regis 10/12/15 Signed Guzman Manuel 10/12/15 [facility] [address] [place], [place], [phone] CBC W/Diff, AutomatedOrdered By: Grid Operator on 08-02-2015 Absolute Lymph 1.42 {X10_3/ul} Normal 0.83-4.51 [facility] Internal [facility] Work Phone: Absolute Neut 3.3 {X10_3/uL} Normal 2.0-7.7 Compreh ensive Internal Medicine Work Phone: Comment on above: [facility] [address] [place], [address] ; will review at 2/1 appt Basophils/100 WBC (Bld) 0.6 % Normal 0-1 [facility] Work Phone: Comment on above: [facility] [address] [place], [address] ; will review at 2/1 appt Basophils/100 WBC Auto (Bld) 0.6 % Normal 0-1 [facility] Work Phone: Eosinophils/100 WBC (Bld) 2.8 % Normal 0-5 [facility] Work Phone: Comment on above: [facility] [address] [place], [address] ; will review at 2/1 appt Eosinophils/100 WBC Auto (Bld) 2.8 % Normal 0-5 [facility] Work Phone: Erythrocyte distribution width (RBC) [Ratio] 14.8 % Abnormal 11.6-14.6 [facility] Work Phone: Comment on above: [facility] [address] [place], [place], [phone] ; will review at 2/1 appt Erythrocyte distribution width Auto Ratio (RBC) 14.8 % Abnormal 11.6-14.6 [facility] Work Phone: Hematocrit (Bld) [Volume fraction] 48.7 % Normal 40-54 [facility] Work Phone: Comment on above: [facility] [address] [place], [place], [phone] ; will review at 2/1 appt Hematocrit Auto Volume Fraction (Bld) 48.7 % Normal 40-54 [facility] Internal Medicine Work Phone: Hemoglobin mass conc (Bld) 15.3 g/dL Normal 13.0-16.5 [facility] Work Phone: Comment on above: [facility] [address] [place], [place], [phone] ; will review at 2/1 appt IM GRAN % 0.200 % Normal 0.0-0.9 [facility] Work Phone: Comment on above: IG% - Immature Granu locytes (promyelocytes, myelocytes andmetamyelocytes) > 1% indicates that a LEFT SHIFT is Present. [facility] [address] [place], [place], [phone] ; will review at 2/1 appt Lymphocytes (Bld) [#/Vol] 1.42 {X10_3/ul} Normal 0.83-4.51 [facility] Work Phone: Comment on above: [facility] [address] [place], [place], [phone] ; will review at 2/1 appt Lymphocytes Auto #/vol (Bld) 1.42 {X10_3/ul} Normal 0.83-4.51 [facility] Work Phone: Lymphocytes/100 WBC (Bld) 26.3 % Normal 19-41 [facility] Work Phone: Comment on above: [facility] [address] [place], [phone] ; will review at 2/1 appt Lymphocytes/100 WBC Auto (Bld) 26.3 % Normal 19-41 [facility] Work Phone: MCH (RBC) [Entitic mass] 27.9 pg Normal 27.0-32.0 [facility] Work Phone: Comment on above: [facility] [address] [place], [place], [phone] ; will review at 2/1 appt MCH Auto Entitic mass (RBC) 27.9 pg Normal 27.0-32.0 [facility] Work Phone: MCHC (RBC) [Mass/Vol] 31.4 {g/gl} Abnormal 32-36 [facility] Internal Medicine Work Phone: Comment on above: [facility] [address] [place], [place], [phone] ; will review at 2/1 appt MCHC Auto mass conc (RBC) 31.4 {g/gl} Abnormal 32-36 [facility] Internal Medicine Work Phone: MCV (RBC) [Entitic vol] 88.7 fL Normal 80-94 [facility] Work Phone: Comment on above: [facility] [address] [place], [place], [phone] ; will review at 2/1 appt MCV Auto Entitic volume (RBC) 88.7 fL Normal 80-94 [facility] Work Phone: Monocytes/100 WBC Auto (Bld) 9.3 % Normal 0-10 [facility] Work Phone: Comment on above: [facility] [address] [place], [address] ; will review at 2/1 appt Neutrophils/100 WBC (Bld) 60.8 % Normal 47-70 [facility] Work Phone: Comment on above: [facility] [address] [place], [phone] ; will review at 2/1 appt Neutrophils/100 WBC Auto (Bld) 60.8 % Normal 47-70 [facility] Work Phone: Platelet mean volume (Bld) [Entitic vol] 10.8 fL Normal 6.2-12.0 [facility] Internal Medicine Work Phone: Comment on above: [facility] [address] [place], [place], [phone] ; will review at 2/1 appt Platelet mean volume Auto Entitic volume (Bld) 10.8 fL Normal 6.2-12.0 [facility] Work Phone: Platelets (Bld) [#/Vol] 126 10*3/uL Abnormal 150-450 [facility] Work Phone: Comment on above: [facility] [address] [place], [place], [phone] ; will review at 2/1 appt Platelets Auto #/vol (Bld) 126 10*3/uL Abnormal 150-450 [facility] Work Phone: RBC (Bld) [#/Vol] 5.49 {M/mm3} Normal 4.6-6.2 [facility] Internal Medicine Work Phone: Comment on above: [facility] [address] [place], [address] ; will review at 2/1 appt RBC Auto #/vol (Bld) 5.49 {M/mm3} Normal 4.6-6.2 [facility] Internal Medicine Work Phone: RDW SD 47.7 fL Abnormal 35.1-43.9 [facility] Work Phone: Comment on above: [facility] [address] [place], [place], [address] ; will review at 2/1 appt WBC (Bld) [#/Vol] 5.4 10*3/uL Normal 4.4-11.0 [facility] Internal Medicine Work Phone: Comment on above: [facility] [address] [place], [place], [phone] ; will review at 2/1 appt WBC Auto #/vol (Bld) 5.4 10*3/uL Normal 4.4-11.0 [facility] prehensive Internal Medicine Work Phone: CBC W/Diff, Automated 0.6 % Normal 0-1 Com prehensive Internal Medicine Work Phone: CBC W/Diff, Automated 2.8 % Normal 0-5 Com prehensive Internal Medicine Work Phone: CBC W/Diff, Automated 9.3 % Normal 0-10 [facility] prehensive Internal Medicine Work Phone: CBC W/Diff, Automated 26.3 % Normal 19-41 Com prehensive Internal Medicine Work Phone: CBC W/Diff, Automated 60.8 % Normal 47-70 [facility] prehensive Internal Medicine Work Phone: CBC W/Diff, Automated 10.8 fL Normal 6.2-12.0 [facility] prehensive Internal Medicine Work Phone: CBC W/Diff, Automated 126 K/mm3 Abnormal 150-450 [facility] prehensive Internal Medicine Work Phone: CBC W/Diff, Automated 47.7 fL Abnormal 35.1-43.9 [facility] prehensive Internal Medicine Work Phone: CBC W/Diff, Automated 14.8 % Abnormal 11.6-14.6 [facility] prehensive Internal Medicine Work Phone: CBC W/Diff, Automated 31.4 {g/gl} Abnormal 32-36 [facility] Work Phone: CBC W/Diff, Automated 27.9 pg Normal 27.0-32.0 [facility] prehensive Internal Medicine Work Phone: CBC W/Diff, Automated 88.7 fL Normal 80-94 Com prehensive Internal Medicine Work Phone: CBC W/Diff, Automated 48.7 % Normal 40-54 Com prehensive Internal Medicine Work Phone: CBC W/Diff, Automated 15.3 g/dL Normal 13.0-16.5 Com prehensive Internal Medicine Work Phone: CBC W/Diff, Automated 5.49 {M/mm3} Normal 4.6-6.2 C omprehensive Internal Medicine Work Phone: CBC W/Diff, Automated 5.4 K/mm3 Normal 4.4-11.0 Com prehensive Internal Medicine Work Phone: CBC W/Diff, Automated 1.42 {X10_3/ul} Normal 0.83-4.51 [facility] Work Phone: CBC W/Diff, Automated 3.3 {X10_3/uL} Normal 2.0-7.7 [facility] Work Phone: CBC W/Diff, Automated 0.200 % Normal 0.0-0.9 [facility] prehensive Internal Medicine Work Phone: Comment on above: IG% - Immature Granu locytes (promyelocytes, myelocytes andmetamyelocytes) > 1% indicates that a LEFT SHIFT is Present. [facility] Metabolic Prof ilOrdered By: Grid Operator on 08-02-2015 Comprehensive metabolic 2000 panel 110 mmol/L Abnormal 98-107 Comprehensi ve Internal Medicine Work Phone: Comment on above: [facility] [address] [place], [address] Comprehensive metabolic 2000 panel 0.9 {RATIO} Normal 0.9-2.4 Comprehensi ve Internal Medicine Work Phone: Comment on above: [facility] [address] [place], [address] Comprehensive metabolic 2000 panel 8.4 mg/dL Abnormal 8.5-10.1 Comprehensi ve Internal Medicine Work Phone: Comment on above: [facility] [address] [place], [place], [address] Comprehensive metabolic 2000 panel 18 U/L Normal 15-37 Comprehensi ve Internal Medicine Work Phone: Comment on above: [facility] [address] [place], [place], [address] Comprehensive metabolic 2000 panel 63 U/L Normal 50-136 Comprehensi ve Internal Medicine Work Phone: Comment on above: [facility] [address] [place], [place], [address] Comprehensive metabolic 2000 panel 7.5 g/dL Normal 6.4-8.2 Comprehensi ve Internal Medicine Work Phone: Comment on above: [facility] [address] [place], [address] Comprehensive metabolic 2000 panel 30 U/L Normal 12-78 Comprehensi ve Internal Medicine Work Phone: Comment on above: [facility] [address] [place], [place], [address] Comprehensive metabolic 2000 panel 0.50 mg/dL Normal 0.20-1.00 Comprehensi ve Internal Medicine Work Phone: Comment on above: [facility] [address] [place], [address] Comprehensive metabolic 2000 panel 144 mmol/L Normal 136-145 Comprehensi ve Internal Medicine Work Phone: Comment on above: [facility] [address] [place], [address] Comprehensive metabolic 2000 panel 4.5 mmol/L Normal 3.5-5.1 Comprehensi ve Internal Medicine Work Phone: Comment on above: [facility] [address] [place], [address] Comprehensive metabolic 2000 panel 3.6 g/dL Normal 3.4-5.0 Comprehensi ve Internal Medicine Work Phone: Comment on above: [facility] [address] [place], [place], [phone] Comprehensive metabolic 2000 panel 26.0 mmol/L Normal 21.0-32.0 Comprehensi ve Internal Medicine Work Phone: Comment on above: [facility] [address] [place], [place], [phone] Comprehensive metabolic 2000 panel 8 1 Normal 5-15 Comprehensi ve Internal Medicine Work Phone: Comment on above: [facility] [address] [place], [place], [phone] Comprehensive metabolic 2000 panel 11.6 {RATIO} Normal 10-20 Comprehensi ve Internal Medicine Work Phone: Comment on above: [facility] [address] [place], [place], [phone] Comprehensive metabolic 2000 panel 46 mL/min Abnormal Comprehensi ve Internal Medicine Work Phone: Comment on above: GFR Calc [facility] [address] [place], [place], [phone] Comprehensive metabolic 2000 panel 38 mL/min Abnormal Comprehensi ve Internal Medicine Work Phone: Comment on above: Non- GFR Calc [facility] [address] [place], [place], [phone] Comprehensive metabolic 2000 panel 1.89 mg/dL Abnormal 0.70-1.30 Comprehensi ve Internal Medicine Work Phone: Comment on above: The validity of the calculated GFR AND GFRAA in patients over70 years has not been determined. Clinical correlation isessential. [facility] [address] [place], [place], [phone] Comprehensive metabolic 2000 panel 22 mg/dL Abnormal 7-18 Comprehensi ve Internal Medicine Work Phone: Comment on above: [facility] [address] [place], [place], [phone] Comprehensive metabolic 2000 panel 3.9 g/dL Abnormal 2.3-3.5 Comprehensi ve Internal Medicine Work Phone: Comment on above: [facility] [address] [place], [place], [phone] Comprehensive metabolic 2000 panel 123 mg/dL Abnormal 70-110 Comprehensi ve Internal Medicine Work Phone: Comment on above: Fasting Glucose resu lt from 110 to <126 mg/dLsuggests IMPAIRED HOMEOSTASIS per A.D.A. criteria. [facility] [address] [place], [place], [phone] Hemoglobin M6rNwhseqr By: [facility] Department Director on 08-02-2015 Hemoglobin A1c/Hemoglobin.total mass fraction (Bld) 6.6 % Abnormal 4.2-6.3 Comprehensiv e Internal Medicine Work Phone: Comment on above: [facility] [address] [place], [place], [phone] Lipid ProfileOrdered By: [facility] Department Director on 08-02-2015 Cholesterol in HDL mass conc 34 mg/dL Abnormal [facility] Work Phone: Comment on above: Reference Range HDL <40 mg/dL Low HDL Cholesterol HDL >or= 60 mg/dL High HDL Cholesterol [facility] [address] [place], [place], [phone] Cholesterol in LDL mass conc 54 mg/dL Normal 0-130 [facility] Work Phone: Cholesterol in LDL mass conc 54 mg/dL Normal 0-130 [facility] Work Phone: Comment on above: [facility] [address] [place], [place], [phone] Cholesterol in VLDL mass conc 34 mg/dL Normal 5-40 [facility] Work Phone: Comment on above: [facility] [address] [place], [address] Cholesterol mass conc 122 mg/dL Normal Com prehensive Internal Medicine Work Phone: Comment on above: <200 mg/dL Desirable 200-240 mg/dL Borderline >240 mg/dL High Risk [facility] [address] [place], [address] Triglyceride mass conc 168 mg/dL Normal [facility] Work Phone: Comment on above: Serum Triglycerides Reference Interval Normal <150 mg/dL Borderline high 150 - 199 mg/dL High 200 - 499 mg/dL Very High > or = 500 mg/dL [facility] [address] [place], [address] Lipid Profile 34 mg/dL Normal 5-40 Comprehensi ve Internal Medicine Work Phone: Comment on above: Reference Range HDL <40 mg/dL Low HDL Cholesterol HDL >or= 60 mg/dL High HDL Cholesterol [facility] [address] [place], [place], [phone] Lipid Profile 54 mg/dL Normal 0-130 Comprehensi ve Internal Medicine Work Phone: Comment on above: [facility] [address] [place], [place], [phone] Lipid Profile 168 mg/dL Normal Comprehensi ve Internal Medicine Work Phone: Comment on above: Serum Triglycerides Reference Interval Normal <150 mg/dL Borderline high 150 - 199 mg/dL High 200 - 499 mg/dL Very High > or = 500 mg/dL [facility] [address] [place], [place], [phone] Lipid Profile 122 mg/dL Normal Comprehensi ve Internal Medicine Work Phone: Comment on above: <200 mg/dL Desirable 200-240 mg/dL Borderline >240 mg/dL High Risk [facility] [address] [place], [place], [phone] MicroalbOrdered By: Ramakrishna waters on 08-02-2015 Creatinine mass conc 581.5 {mg/g_CRE} Abnormal [facility] Work Phone: MALB:CREAT 581.5 {mg/g_CRE} Abnormal Comprehe nsive Internal Medicine Work Phone: MICROALBUMIN,UR 878.0 mg/L Normal Comprehen sive Internal Medicine Work Phone: UR CREAT 151.00 mg/dL Normal Comprehensiv e Internal Medicine Work Phone: Microalb 151.00 mg/dL Normal Comprehensiv e Internal Medicine Work Phone: Comment on above: [facility] [address] [place], [place], [phone] Microalb 581.5 {mg/g_CRE} Abnormal Comprehe nsive Internal Medicine Work Phone: Comment on above: [facility] [address] [place], [place], [phone] Microalb 878.0 mg/L Normal [facility] Medicine Work Phone: Comment on above: [facility] [address] [place], [place], [phone] HgA1C , Office ([phone])Ordere d By: Bethany Bradford on 05-10-2015 Hemoglobin A1c/Hemoglobin.total mass fraction (Bld) 9.0 % Abnormal 4.6 - 7.1 Comprehensiv e Internal Medicine Work Phone: CBC W/Diff, AutomatedOrdered By: Grid Operator on 04-27-2015 Absolute Lymph 1.63 {X10_3/ul} Normal 0.83-4.51 Compr ehensive Internal Medicine Work Phone: Absolute Neut 3.0 {X10_3/uL} Normal 2.0-7.7 Compreh ensive Internal Medicine Work Phone: Comment on above: [facility] [address] [place], [address] Basophils/100 WBC (Bld) 0.4 % Normal 0-1 [facility] Work Phone: Comment on above: [facility] [address] [place], [address] Basophils/100 WBC Auto (Bld) 0.4 % Normal 0-1 [facility] Work Phone: Eosinophils/100 WBC (Bld) 3.9 % Normal 0-5 [facility] Work Phone: Comment on above: [facility] [address] [place], [address] Eosinophils/100 WBC Auto (Bld) 3.9 % Normal 0-5 [facility] Work Phone: Erythrocyte distribution width (RBC) [Ratio] 14.9 % Abnormal 11.6-14.6 [facility] Work Phone: Comment on above: [facility] [address] [place], [address] Erythrocyte distribution width Auto Ratio (RBC) 14.9 % Abnormal 11.6-14.6 [facility] Work Phone: Hematocrit (Bld) [Volume fraction] 49.0 % Normal 40-54 [facility] Work Phone: Comment on above: [facility] [address] [place], [address] Hematocrit Auto Volume Fraction (Bld) 49.0 % Normal 40-54 Comprehens kevin Internal Medicine Work Phone: Hemoglobin mass conc (Bld) 16.2 g/dL Normal 13.0-16.5 [facility] Work Phone: Comment on above: [facility] [address] [place], [address] IM GRAN % 0.200 % Normal 0.0-0.9 [facility] Work Phone: Comment on above: IG% - Immature Granu locytes (promyelocytes, myelocytes andmetamyelocytes) > 1% indicates that a LEFT SHIFT is Present. [facility] [address] [place], [address] Lymphocytes (Bld) [#/Vol] 1.63 {X10_3/ul} Normal 0.83-4.51 [facility] Work Phone: Comment on above: [place] [address] [place], [address] Lymphocytes Auto #/vol (Bld) 1.63 {X10_3/ul} Normal 0.83-4.51 [facility] Work Phone: Lymphocytes/100 WBC (Bld) 29.2 % Normal 19-41 [facility] Work Phone: Comment on above: [place] [address] [place], [address] Lymphocytes/100 WBC Auto (Bld) 29.2 % Normal 19-41 [facility] Work Phone: MCH (RBC) [Entitic mass] 28.5 pg Normal 27.0-32.0 [facility] Work Phone: Comment on above: [place] [address] [place], [address] MCH Auto Entitic mass (RBC) 28.5 pg Normal 27.0-32.0 [facility] Work Phone: MCHC (RBC) [Mass/Vol] 33.1 {g/gl} Normal 32-36 [facility] Internal Medicine Work Phone: Comment on above: [facility] [address] [place], [address] MCHC Auto mass conc (RBC) 33.1 {g/gl} Normal 32-36 [facility] Work Phone: MCV (RBC) [Entitic vol] 86.1 fL Normal 80-94 [facility] Work Phone: Comment on above: [facility] [address] [place], [address] MCV Auto Entitic volume (RBC) 86.1 fL Normal 80-94 [facility] Work Phone: Monocytes/100 WBC Auto (Bld) 12.9 % Abnormal 0-10 [facility] Work Phone: Comment on above: [facility] [address] [place], [address] Neutrophils/100 WBC (Bld) 53.4 % Normal 47-70 [facility] Medicine Work Phone: Comment on above: [facility] [address] [place], [address] Neutrophils/100 WBC Auto (Bld) 53.4 % Normal 47-70 [facility] Work Phone: Platelet mean volume (Bld) [Entitic vol] 10.6 fL Normal 6.2-12.0 Comprehensiv e Internal Medicine Work Phone: Comment on above: [facility] [address] [place], [address] Platelet mean volume Auto Entitic volume (Bld) 10.6 fL Normal 6.2-12.0 [facility] Work Phone: Platelets (Bld) [#/Vol] 109 10*3/uL Abnormal 150-450 [facility] Medicine Work Phone: Comment on above: [facility] [address] [place], [address] Platelets Auto #/vol (Bld) 109 10*3/uL Abnormal 150-450 [facility] Internal Medicine Work Phone: RBC (Bld) [#/Vol] 5.69 {M/mm3} Normal 4.6-6.2 Compr [facility] Internal Medicine Work Phone: Comment on above: [facility] [address] [place], [place], [phone] RBC Auto #/vol (Bld) 5.69 {M/mm3} Normal 4.6-6.2 [facility] Work Phone: RDW SD 46.6 fL Abnormal 35.1-43.9 [facility] Work Phone: Comment on above: [facility] [address] [place], [place], [phone] WBC (Bld) [#/Vol] 5.6 10*3/uL Normal 4.4-11.0 [facility] Internal Medicine Work Phone: Comment on above: [facility] [address] [place], [address] WBC Auto #/vol (Bld) 5.6 10*3/uL Normal 4.4-11.0 [facility] prehensive Internal Medicine Work Phone: CBC W/Diff, Automated 3.0 {X10_3/uL} Normal 2.0-7.7 [facility] Internal Medicine Work Phone: CBC W/Diff, Automated 0.200 % Normal 0.0-0.9 [facility]: Comment on above: IG% - Immature Granu locytes (promyelocytes, myelocytes andmetamyelocytes) > 1% indicates that a LEFT SHIFT is Present. CBC W/Diff, Automated 0.4 % Normal 0-1 [facility] prehensive Internal Medicine Work Phone: CBC W/Diff, Automated 3.9 % Normal 0-5 [facility] prehensive Internal Medicine Work Phone: CBC W/Diff, Automated 12.9 % Abnormal 0-10 [facility] prehensive Internal Medicine Work Phone: CBC W/Diff, Automated 29.2 % Normal 19-41 [facility] prehensive Internal Medicine Work Phone: CBC W/Diff, Automated 53.4 % Normal 47-70 [facility] prehensive Internal Medicine Work Phone: CBC W/Diff, Automated 10.6 fL Normal 6.2-12.0 Com prehensive Internal Medicine Work Phone: CBC W/Diff, Automated 109 K/mm3 Abnormal 150-450 Com prehensive Internal Medicine Work Phone: CBC W/Diff, Automated 46.6 fL Abnormal 35.1-43.9 Com prehensive Internal Medicine Work Phone: CBC W/Diff, Automated 14.9 % Abnormal 11.6-14.6 Com prehensive Internal Medicine Work Phone: CBC W/Diff, Automated 33.1 {g/gl} Normal 32-36 Co mprehensive Internal Medicine Work Phone: CBC W/Diff, Automated 28.5 pg Normal 27.0-32.0 Com prehensive Internal Medicine Work Phone: CBC W/Diff, Automated 86.1 fL Normal 80-94 Com prehensive Internal Medicine Work Phone: CBC W/Diff, Automated 49.0 % Normal 40-54 Com prehensive Internal Medicine Work Phone: CBC W/Diff, Automated 16.2 g/dL Normal 13.0-16.5 Com prehensive Internal Medicine Work Phone: CBC W/Diff, Automated 5.69 {M/mm3} Normal 4.6-6.2 C omprehensive Internal Medicine Work Phone: CBC W/Diff, Automated 5.6 K/mm3 Normal 4.4-11.0 Com prehensive Internal Medicine Work Phone: CBC W/Diff, Automated 1.63 {X10_3/ul} Normal 0.83-4.51 [facility] Internal Medicine Work Phone: Comprehensive Metabolic Prof ilOrdered By: Grid Operator on 04-27-2015 Comprehensive metabolic 2000 panel 47 mL/min Abnormal Comprehensi ve Internal Medicine Work Phone: Comment on above: [facility] [address] [place], [place], [id number] Comprehensive metabolic 2000 panel 25 U/L Normal 15-37 Comprehensi ve Internal Medicine Work Phone: Comment on above: [facility] [address] [place], [place], [address] Comprehensive metabolic 2000 panel 39 mL/min Abnormal Comprehensi ve Internal Medicine Work Phone: Comment on above: [facility] [address] [place], [place], [phone] Comprehensive metabolic 2000 panel 4.0 g/dL Normal 3.4-5.0 Comprehensi ve Internal Medicine Work Phone: Comment on above: [facility] [address] [place], [place], [phone] Comprehensive metabolic 2000 panel 36 U/L Normal 12-78 Comprehensi ve Internal Medicine Work Phone: Comment on above: [facility] [address] [place], [place], [phone] Comprehensive metabolic 2000 panel 1.84 mg/dL Abnormal 0.70-1.30 Comprehensi ve Internal Medicine Work Phone: Comment on above: The validity of the calculated GFR AND GFRAA in patients over70 years has not been determined. Clinical correlation isessential. [facility] [address] [place], [place], [phone] Comprehensive metabolic 2000 panel 0.60 mg/dL Normal 0.20-1.00 Comprehensi ve Internal Medicine Work Phone: Comment on above: [facility] [address] [place], [place], [phone] Comprehensive metabolic 2000 panel 140 mmol/L Normal 136-145 Comprehensi ve Internal Medicine Work Phone: Comment on above: [facility] [address] [place], [place], [phone] Comprehensive metabolic 2000 panel 1.0 {RATIO} Normal 0.9-2.4 Comprehensi ve Internal Medicine Work Phone: Comment on above: [facility] [address] [place], [place], [phone] Comprehensive metabolic 2000 panel 4.5 mmol/L Normal 3.5-5.1 Comprehensi ve Internal Medicine Work Phone: Comment on above: [facility] [address] [place], [place], [phone] Comprehensive metabolic 2000 panel 107 mmol/L Normal 98-107 Comprehensi ve Internal Medicine Work Phone: Comment on above: [facility] [address] [place], [place], [phone] Comprehensive metabolic 2000 panel 25 mg/dL Abnormal 7-18 Comprehensi ve Internal Medicine Work Phone: Comment on above: [facility] [address] [place], [place], [phone] Comprehensive metabolic 2000 panel 73 U/L Normal 50-136 Comprehensi ve Internal Medicine Work Phone: Comment on above: [facility] [address] [place], [place], [phone] Comprehensive metabolic 2000 panel 7.9 g/dL Normal 6.4-8.2 Comprehensi ve Internal Medicine Work Phone: Comment on above: [facility] [address] [place], [place], [phone] Comprehensive metabolic 2000 panel 26.0 mmol/L Normal 21.0-32.0 Comprehensi ve Internal Medicine Work Phone: Comment on above: [facility] [address] [place], [place], [phone] Comprehensive metabolic 2000 panel 13.6 {RATIO} Normal 10-20 Comprehensi ve Internal Medicine Work Phone: Comment on above: [facility] [address] [place], [place], [phone] Comprehensive metabolic 2000 panel 8.4 mg/dL Abnormal 8.5-10.1 Comprehensi ve Internal Medicine Work Phone: Comment on above: [facility] [address] [place], [place], [phone] Comprehensive metabolic 2000 panel 3.9 g/dL Abnormal 2.3-3.5 Comprehensi ve Internal Medicine Work Phone: Comment on above: [facility] [address] [place], [place], [phone] Comprehensive metabolic 2000 panel 7 1 Normal 5-15 Comprehensi ve Internal Medicine Work Phone: Comment on above: [facility] [address] [place], [place], [phone] Comprehensive metabolic 2000 panel 190 mg/dL Abnormal 70-110 Comprehensi ve Internal Medicine Work Phone: Comment on above: Fasting Glucose resu lt greater than or equal to 126 mg/dLsuggests DIABETES MELLITUS per A.D.A. criteria. [facility] [address] [place], [place], [phone] Lipid ProfileOrdered By: Lencho tem Department Director on 04-27-2015 Cholesterol in HDL mass conc 32 mg/dL Abnormal Comprehensive Internal Medicine Work Phone: Comment on above: Reference Range HDL <40 mg/dL Low HDL Cholesterol HDL >or= 60 mg/dL High HDL Cholesterol [facility] [address] [place], [place], [id number] Cholesterol in LDL mass conc 50 mg/dL Normal 0-130 [facility] Internal Medicine Work Phone: Cholesterol in LDL mass conc 50 mg/dL Normal 0-130 Comprehensive Internal Medicine Work Phone: Comment on above: [facility] [address] [place], [place], [phone] Cholesterol in VLDL mass conc 50 mg/dL Abnormal 5-40 Comprehensive Internal Medicine Work Phone: Comment on above: [facility] [address] [place], [place], [address] Cholesterol mass conc 132 mg/dL Normal Com prehensive Internal Medicine Work Phone: Comment on above: <200 mg/dL Desirable 200-240 mg/dL Borderline >240 mg/dL High Risk [facility] [address] [place], [place], [phone](279) Triglyceride mass conc 248 mg/dL Abnormal Comprehensive Internal Medicine Work Phone: Comment on above: Serum Triglycerides Reference Interval Normal <150 mg/dL Borderline high 150 - 199 mg/dL High 200 - 499 mg/dL Very High > or = 500 mg/dL [facility] [address] [place], [place], [phone]) Lipid Profile 50 mg/dL Normal 0-130 Comprehensi ve Internal Medicine Work Phone: Comment on above: [facility] [address] [place], [place], [phone](409) Lipid Profile 32 mg/dL Abnormal Comprehensi ve Internal Medicine Work Phone: Comment on above: Reference Range HDL <40 mg/dL Low HDL Cholesterol HDL >or= 60 mg/dL High HDL Cholesterol [facility] [address] [place], [place], [phone](930) Lipid Profile 248 mg/dL Abnormal Comprehensi ve Internal Medicine Work Phone: Comment on above: Serum Triglycerides Reference Interval Normal <150 mg/dL Borderline high 150 - 199 mg/dL High 200 - 499 mg/dL Very High > or = 500 mg/dL [facility] [address] [place], [place], [phone](651) Lipid Profile 132 mg/dL Normal Comprehensi ve Internal Medicine Work Phone: Comment on above: <200 mg/dL Desirable 200-240 mg/dL Borderline >240 mg/dL High Risk [facility] [address] [place], [place], [phone] MicroalbOrdered By: Ramakrishna waters on 04-27-2015 Creatinine mass conc 575.0 {mg/g_CRE} Abnormal [facility] Internal Medicine Work Phone: MALB:CREAT 575.0 {mg/g_CRE} Abnormal Comprehe nsive Internal Medicine Work Phone: MICROALBUMIN,UR 1110.0 mg/L Normal Comprehe nsive Internal Medicine Work Phone: UR CREAT 193.00 mg/dL Normal Comprehensiv e Internal Medicine Work Phone: Microalb 575.0 {mg/g_CRE} Abnormal Comprehe nsive Internal Medicine Work Phone: Comment on above: [facility] [address] [place], [place], [phone] Microalb 1110.0 mg/L Normal Comprehensive Internal Medicine Work Phone: Comment on above: [facility] [address] [place], [place], [phone] Microalb 193.00 mg/dL Normal Comprehensiv e Internal Medicine Work Phone: Comment on above: [facility] [address] [place], [place], [phone] Urinalysis, CompleteOrdered By: Grid Operator on 04-27-2015 Protein mass conc (U) 100 mg/dL Abnormal Com prehensive Internal Medicine Work Phone: Comment on above: How was Urine Obtain ed? Urine, [facility] [address] [place], [place], [phone] RBC (U) [#/Vol] 0 SEEN Normal 0-5 Comprehen sive Internal Medicine Work Phone: Comment on above: How was Urine Obtain ed? Urine, [facility] [address] [place], [place], [phone] RBC Test strip #/vol (U) 0 SEEN Normal 0-5 Comprehensive Internal Medicine Work Phone: Urinalysis complete panel - Urine Normal Normal [facility] Internal Medicine Work Phone: Comment on above: How was Urine Obtain ed? Urine, [facility] [address] [place], [address] Urinalysis complete panel - Urine Yellow Normal [facility] Internal Medicine Work Phone: Comment on above: How was Urine Obtain ed? Urine, [facility] [address] [place], [address] Urinalysis complete panel - Urine 100 mg/dL Abnormal Comprehensive Internal Medicine Work Phone: Comment on above: [facility] [address] [place], [address] Urinalysis complete panel - Urine Clear Normal Comprehensive Internal Medicine Work Phone: Comment on above: How was Urine Obtain ed? [facility] [place], [facility] [address] [place], [address] Urinalysis complete panel - Urine Negative Normal Comprehensive Internal Medicine Work Phone: Comment on above: How was Urine Obtain ed? [facility] [address] [place], [address] Urinalysis complete panel - Urine 1.020 1 Normal 1.002-1.03 0 [facility] Internal Medicine Work Phone: Comment on above: How was Urine Obtain ed? Urine, [facility] [address] [place], [address] Urinalysis complete panel - Urine 5.0 1 Normal 5.0 - 8.0 [facility] Internal Medicine Work Phone: Comment on above: [facility] [address] [place], [address] Urinalysis complete panel - Urine 25 /ul Abnormal [facility] Internal Medicine Work Phone: Comment on above: How was Urine Obtain ed? Urine, [facility] [address] [place], [place], [phone] Urinalysis complete panel - Urine 0-5 SEEN Normal 0-5 [facility] Internal Medicine Work Phone: Comment on above: How was Urine Obtain ed? Urine, [facility] [address] [place], [address] Urinalysis complete panel - Urine 0 SEEN Normal Comprehensive Internal Medicine Work Phone: Comment on above: How was Urine Obtain ed? Urine, [facility] [address] [place], [address] PSA,Total- DiagnosticOrdered By: Grid Operator on 03-17-2015 PSA, DIAGNOSTIC 0.86 ng/mL Normal 0.0-4.0 Comprehen [facility] Internal Medicine Work Phone: Comment on above: This test was perfor med using the TPSA assay method for theDimension chemistry system. Values obtained with differentassay methods cannot be used interchangably.When changing PSA assays in the course of monitoring apatient, additional sequential testing should be carriedout to confirm baseline values. PSA,Total- Diagnostic 0.86 ng/mL Normal 0.0-4.0 [facility] Work Phone: Comment on above: This test was perfor med using the TPSA assay method for theDimension chemistry system. Values obtained with differentassay methods cannot be used interchangably.When changing PSA assays in the course of monitoring apatient, additional sequential testing should be carriedout to confirm baseline values. Test performed at:[facility] [address] [place], [place] [phone] Blood Glucose , Office ([phone])Ordered By: Brandie Guevara on 12-23-2014 Glucose Glucometer molar conc (BldC) 187 1 Normal [facility] Internal Medicine Work Phone: Comment on above: fasting HgA1C , Office ([phone])Ordere d By: Brandie Guevara on 12-23-2014 Hemoglobin A1c/Hemoglobin.total mass fraction (Bld) 7.7 % Abnormal 4.6 - 7.1 Comprehensiv e Internal Medicine Work Phone: CBC W/Diff, AutomatedOrdered By: Grid Operator on 12-19-2014 Absolute Lymph 1.54 {X10_3/ul} Normal 0.83-4.51 Compr ehensive Internal Medicine Work Phone: Absolute Neut 3.2 {X10_3/uL} Normal 2.0-7.7 Compreh ensive Internal Medicine Work Phone: Comment on above: Test performed at:[facility] [address] [place] [address] Basophils/100 WBC (Bld) 0.4 % Normal 0-1 [facility] Internal Medicine Work Phone: Comment on above: Test performed at:[facility] [address] [place] [address] Basophils/100 WBC Auto (Bld) 0.4 % Normal 0-1 [facility] Internal Medicine Work Phone: Eosinophils/100 WBC (Bld) 3.6 % Normal 0-5 [facility] Internal Medicine Work Phone: Comment on above: Test performed at:[facility] [address] [place] [address] Eosinophils/100 WBC Auto (Bld) 3.6 % Normal 0-5 [facility] Internal Medicine Work Phone: Erythrocyte distribution width (RBC) [Ratio] 15.3 % Abnormal 11.6-14.6 [facility] Internal Medicine Work Phone: Comment on above: Test performed at:[facility] [address] [place] [address] Erythrocyte distribution width Auto Ratio (RBC) 15.3 % Abnormal 11.6-14.6 [facility] Internal Medicine Work Phone: Hematocrit (Bld) [Volume fraction] 45.3 % Normal 40-54 [facility] Internal Medicine Work Phone: Comment on above: Test performed at:[facility] [address] [place] [address] Hematocrit Auto Volume Fraction (Bld) 45.3 % Normal 40-54 Comprehens kevin Internal Medicine Work Phone: Hemoglobin mass conc (Bld) 14.9 g/dL Normal 13.0-16.5 [facility] Internal Medicine Work Phone: Comment on above: Test performed at:[facility] [address] [place] [address] IM GRAN % 0.200 % Normal 0.0-0.9 [facility] Internal Medicine Work Phone: Comment on above: IG% - Immature Granu locytes (promyelocytes, myelocytes andmetamyelocytes) > 1% indicates that a LEFT SHIFT is Present. Test performed at:[facility] [address] [place] [address] Lymphocytes (Bld) [#/Vol] 1.54 {X10_3/ul} Normal 0.83-4.51 [facility] Internal Medicine Work Phone: Comment on above: Test performed at:[facility] [address] [place] [address] Lymphocytes Auto #/vol (Bld) 1.54 {X10_3/ul} Normal 0.83-4.51 [facility] Internal Medicine Work Phone: Lymphocytes/100 WBC (Bld) 28.1 % Normal 19-41 [facility] Internal Medicine Work Phone: Comment on above: Test performed at:[facility] [address] [place] [address] Lymphocytes/100 WBC Auto (Bld) 28.1 % Normal 19-41 [facility] Internal Medicine Work Phone: MCH (RBC) [Entitic mass] 28.8 pg Normal 27.0-32.0 [facility] Internal Medicine Work Phone: Comment on above: Test performed at:[facility] [address] [place] [address] MCH Auto Entitic mass (RBC) 28.8 pg Normal 27.0-32.0 [facility] Internal Medicine Work Phone: MCHC (RBC) [Mass/Vol] 32.9 {g/gl} Normal 32-36 Co mprehensive Internal Medicine Work Phone: Comment on above: Test performed at:[facility] [address] [place] [address] MCHC Auto mass conc (RBC) 32.9 {g/gl} Normal 32-36 [facility] Internal Medicine Work Phone: MCV (RBC) [Entitic vol] 87.5 fL Normal 80-94 [facility] Internal Medicine Work Phone: Comment on above: Test performed at:[facility] [address] [place] [address] MCV Auto Entitic volume (RBC) 87.5 fL Normal 80-94 [facility] Internal Medicine Work Phone: Monocytes/100 WBC Auto (Bld) 8.9 % Normal 0-10 [facility] Internal Medicine Work Phone: Comment on above: Test performed at:[facility] [address] [place] [address] Neutrophils/100 WBC (Bld) 58.8 % Normal 47-70 [facility] Internal Medicine Work Phone: Comment on above: Test performed at:[facility] [address] [place] [address] Neutrophils/100 WBC Auto (Bld) 58.8 % Normal 47-70 [facility] Internal Medicine Work Phone: Platelet mean volume (Bld) [Entitic vol] 11.7 fL Normal 6.2-12.0 Comprehensiv e Internal Medicine Work Phone: Comment on above: Test performed at:[facility] [address] [place] [address] Platelet mean volume Auto Entitic volume (Bld) 11.7 fL Normal 6.2-12.0 [facility] Internal Medicine Work Phone: Platelets (Bld) [#/Vol] 131 10*3/uL Abnormal 150-450 [facility] Internal Medicine Work Phone: Comment on above: Test performed at:[facility] [address] [place] [address] Platelets Auto #/vol (Bld) 131 10*3/uL Abnormal 150-450 [facility] Internal Medicine Work Phone: RBC (Bld) [#/Vol] 5.18 {M/mm3} Normal 4.6-6.2 [facility] Internal Medicine Work Phone: Comment on above: Test performed at:[facility] [address] [place] [address] RBC Auto #/vol (Bld) 5.18 {M/mm3} Normal 4.6-6.2 Co [facility] [place] Internal Medicine Work Phone: RDW SD 48.9 fL Abnormal 35.1-43.9 [facility] Internal Medicine Work Phone: Comment on above: Test performed at:[facility] [address] [place] [address] WBC (Bld) [#/Vol] 5.5 10*3/uL Normal 4.4-11.0 [facility] Internal Medicine Work Phone: Comment on above: Test performed at:[facility] [address] [place] [address] WBC Auto #/vol (Bld) 5.5 10*3/uL Normal 4.4-11.0 [facility] Work Phone: CBC W/Diff, Automated 3.6 % Normal 0-5 [facility] prehensive Internal Medicine Work Phone: CBC W/Diff, Automated 1.54 {X10_3/ul} Normal 0.83-4.51 [facility] Work Phone: CBC W/Diff, Automated 3.2 {X10_3/uL} Normal 2.0-7.7 [facility] Work Phone: CBC W/Diff, Automated 0.200 % Normal 0.0-0.9 [facility] Work Phone: Comment on above: IG% - Immature Granu locytes (promyelocytes, myelocytes andmetamyelocytes) > 1% indicates that a LEFT SHIFT is Present. CBC W/Diff, Automated 0.4 % Normal 0-1 [facility] prehensive Internal Medicine Work Phone: CBC W/Diff, Automated 8.9 % Normal 0-10 [facility] prehensive Internal Medicine Work Phone: CBC W/Diff, Automated 28.1 % Normal 19-41 [facility] prehensive Internal Medicine Work Phone: CBC W/Diff, Automated 58.8 % Normal 47-70 [facility] prehensive Internal Medicine Work Phone: CBC W/Diff, Automated 11.7 fL Normal 6.2-12.0 [facility] prehensive Internal Medicine Work Phone: CBC W/Diff, Automated 131 K/mm3 Abnormal 150-450 [facility] prehensive Internal Medicine Work Phone: CBC W/Diff, Automated 48.9 fL Abnormal 35.1-43.9 [facility] Work Phone: CBC W/Diff, Automated 15.3 % Abnormal 11.6-14.6 [facility] prehensive Internal Medicine Work Phone: CBC W/Diff, Automated 32.9 {g/gl} Normal 32-36 [facility] Work Phone: CBC W/Diff, Automated 28.8 pg Normal 27.0-32.0 [facility] prehensive Internal Medicine Work Phone: CBC W/Diff, Automated 87.5 fL Normal 80-94 [facility] prehensive Internal Medicine Work Phone: CBC W/Diff, Automated 45.3 % Normal 40-54 [facility] prehensive Internal Medicine Work Phone: CBC W/Diff, Automated 14.9 g/dL Normal 13.0-16.5 Com prehensive Internal Medicine Work Phone: CBC W/Diff, Automated 5.18 {M/mm3} Normal 4.6-6.2 C omprehensive Internal Medicine Work Phone: CBC W/Diff, Automated 5.5 K/mm3 Normal 4.4-11.0 Com prehensive Internal Medicine Work Phone: Comprehensive Metabolic Prof ilOrdered By: Grid Operator on 12-19-2014 Comprehensive metabolic 2000 panel 8.2 mg/dL Abnormal 8.5-10.1 Comprehensi ve Internal Medicine Work Phone: Comment on above: Test performed at:[facility] [address] [place] [address] ; will review at /12 appt Comprehensive metabolic 2000 panel 1.0 {RATIO} Normal 0.9-2.4 Comprehensi ve Internal Medicine Work Phone: Comment on above: Test performed at:[facility] [address] [place] [address] ; will review at /12 appt Comprehensive metabolic 2000 panel 3.7 g/dL Normal 2.7-4.2 Comprehensi ve Internal Medicine Work Phone: Comment on above: Test performed at:[facility] [address] [place] [address] ; will review at /12 appt Comprehensive metabolic 2000 panel 136 mmol/L Normal 136-145 Comprehensi ve Internal Medicine Work Phone: Comment on above: Test performed at:[facility] [address] [place] [address] ; will review at /12 appt Comprehensive metabolic 2000 panel 18.1 {RATIO} Normal 10-20 Comprehensi ve Internal Medicine Work Phone: Comment on above: Test performed at:[facility] [address] [place] [address] ; will review at 12/23 appt Comprehensive metabolic 2000 panel 144 mg/dL Abnormal 70-110 Comprehensi ve Internal Medicine Work Phone: Comment on above: Fasting Glucose resu lt greater than or equal to 126 mg/dLsuggests DIABETES MELLITUS per A.D.A. criteria. Test performed at:[facility] [address] [place] [address] ; will review at 12/23 appt Comprehensive metabolic 2000 panel 43 U/L Normal 12-78 Comprehensi ve Internal Medicine Work Phone: Comment on above: Test performed at:[facility] [address] [place] [address] ; will review at 12/23 appt Comprehensive metabolic 2000 panel 56 mL/min Abnormal Comprehensi ve Internal Medicine Work Phone: Comment on above: Test performed at:[facility] [address] [place] [address] ; will review at 12/23 appt Comprehensive metabolic 2000 panel 7.4 g/dL Normal 6.4-8.2 Comprehensi ve Internal Medicine Work Phone: Comment on above: Test performed at:[facility] [address] [place] [address] ; will review at 12/23 appt Comprehensive metabolic 2000 panel 81 U/L Normal 50-136 Comprehensi ve Internal Medicine Work Phone: Comment on above: Test performed at:[facility] [address] [place] [address] ; will review at 12/23 appt Comprehensive metabolic 2000 panel 46 mL/min Abnormal Comprehensi ve Internal Medicine Work Phone: Comment on above: Test performed at:[facility] [address] [place] [address] ; will review at 12/23 appt Comprehensive metabolic 2000 panel 0.70 mg/dL Normal 0.20-1.00 Comprehensi ve Internal Medicine Work Phone: Comment on above: Test performed at:[facility] [address] [place] [address] ; will review at 12/23 appt Comprehensive metabolic 2000 panel 29 mg/dL Abnormal 7-18 Comprehensi ve Internal Medicine Work Phone: Comment on above: Test performed at:[facility] [address] [place] [address] ; will review at 12/23 appt Comprehensive metabolic 2000 panel 4.1 mmol/L Normal 3.5-5.1 Comprehensi ve Internal Medicine Work Phone: Comment on above: Test performed at:[facility] [address] [place] [address] ; will review at 12/23 appt Comprehensive metabolic 2000 panel 103 mmol/L Normal 98-107 Comprehensi ve Internal Medicine Work Phone: Comment on above: Test performed at:[facility] [address] [place] [address] ; will review at 12/23 appt Comprehensive metabolic 2000 panel 25.0 mmol/L Normal 21.0-32.0 Comprehensi ve Internal Medicine Work Phone: Comment on above: Test performed at:[facility] [address] [place] [address] ; will review at 12/23 appt Comprehensive metabolic 2000 panel 8 1 Normal 5-15 Comprehensi ve Internal Medicine Work Phone: Comment on above: Test performed at:[facility] [address] [place] [address] ; will review at 12/23 appt Comprehensive metabolic 2000 panel 1.6 mg/dL Abnormal 0.8-1.3 Comprehensi ve Internal Medicine Work Phone: Comment on above: Test performed at:[facility] [address] [place] [address] ; will review at 12/23 appt Comprehensive metabolic 2000 panel 40 U/L Abnormal 15-37 Comprehensi ve Internal Medicine Work Phone: Comment on above: Test performed at:[facility] [address] [place] [address] ; will review at 12/23 appt Lipid ProfileOrdered By: Lencho tem Department Director on 12-19-2014 Cholesterol in HDL mass conc 23 mg/dL Abnormal Comprehensive Internal Medicine Work Phone: Comment on above: Reference Range HDL <40 mg/dL Low HDL Cholesterol HDL >or= 60 mg/dL High HDL Cholesterol Test performed at:[facility] [address] [place] [address] Cholesterol in LDL mass conc Test not performed Normal 0-130 [facility] Medicine Work Phone: Cholesterol in LDL mass conc Test not performed Normal 0-130 [facility] Medicine Work Phone: Comment on above: Test performed at:[facility] [address] [place] [address] Cholesterol in VLDL mass conc 126 mg/dL Abnormal 5-40 [facility] Medicine Work Phone: Comment on above: Test performed at:[facility] [address] [place] [address] Cholesterol mass conc 123 mg/dL Normal Com prehensive Internal Medicine Work Phone: Comment on above: <200 mg/dL Desirable 200-240 mg/dL Borderline >240 mg/dL High Risk Test performed at:[facility] [address] [place] [address] Triglyceride mass conc 631 mg/dL Abnormal 0-199 [facility] Medicine Work Phone: Comment on above: TRIGLYCERIDE IS GREA TER THAN 400 mg/dL.LDL RESULT IS INVALID AND WILL NOT BE REPORTED.Serum Triglycerides Reference Interval Normal <150 mg/dL Borderline high 150 - 199 mg/dL High 200 - 499 mg/dL Very High > or = 500 mg/dL Test performed at:[facility] [address] [place], [place] [id number] Lipid Profile 23 mg/dL Abnormal Comprehensi ve Internal Medicine Work Phone: Comment on above: Reference Range HDL <40 mg/dL Low HDL Cholesterol HDL >or= 60 mg/dL High HDL Cholesterol Test performed at:[facility] [address] [place] [address] Lipid Profile 126 mg/dL Abnormal 5-40 Comprehensi ve Internal Medicine Work Phone: Comment on above: Test performed at:[facility] [address] [place] [address] Lipid Profile Test not performed Normal 0-130 Com prehensive Internal Medicine Work Phone: Comment on above: Test performed at:[facility] [address] [place] [address] Lipid Profile 631 mg/dL Abnormal 0-199 Comprehensi ve Internal Medicine Work Phone: Comment on above: TRIGLYCERIDE IS GREA TER THAN 400 mg/dL.LDL RESULT IS INVALID AND WILL NOT BE REPORTED.Serum Triglycerides Reference Interval Normal <150 mg/dL Borderline high 150 - 199 mg/dL High 200 - 499 mg/dL Very High > or = 500 mg/dL Test performed at:[facility] [address] [place] [address] Lipid Profile 123 mg/dL Normal Comprehensi ve Internal Medicine Work Phone: Comment on above: <200 mg/dL Desirable 200-240 mg/dL Borderline >240 mg/dL High Risk Test performed at:[facility] [address] [place] [address] Urinalysis, CompleteOrdered By: Grid Operator on 12-19-2014 Protein mass conc (U) 30 mg/dL Abnormal Com prehensive Internal Medicine Work Phone: Comment on above: How was Urine Obtain ed? Urine, RandomTest performed at:[facility] [address] [place] [address] RBC (U) [#/Vol] 0-5 SEEN Normal 0-5 [facility]prehen [facility] Internal [facility] Work Phone: Comment on above: How was Urine Obtain ed? Urine, RandomTest performed at:[facility] [address] [place] [address] RBC Test strip #/vol (U) 0-5 SEEN Normal 0-5 [facility] Work Phone: Urinalysis complete panel - Urine Sl. Cloudy Normal [facility] Work Phone: Comment on above: How was Urine Obtain ed? Urine, RandomTest performed at:[facility] [address] [place] [address] Urinalysis complete panel - Urine Yellow Normal [facility] Medicine Work Phone: Comment on above: How was Urine Obtain ed? Urine, RandomTest performed at:[facility] [address] [place] [address] Urinalysis complete panel - Urine Normal Normal [facility] Work Phone: Comment on above: How was Urine Obtain ed? Urine, RandomTest performed at:[facility] [address] [place] [address] Urinalysis complete panel - Urine Negative Normal [facility] Work Phone: Comment on above: How was Urine Obtain ed? Urine, RandomTest performed at:[facility] [address] [place] [address] Urinalysis complete panel - Urine 1.015 1 Normal 1.002-1.03 0 [facility] Work Phone: Comment on above: How was Urine Obtain ed? Urine, RandomTest performed at:[facility] [address] [place] [address] Urinalysis complete panel - Urine 5.0 1 Normal 5.0 - 8.0 [facility] Work Phone: Comment on above: How was Urine Obtain ed? Urine, RandomTest performed at:[facility] [address] [place], [place] [id number] Urinalysis complete panel - Urine 5 mg/dL Abnormal [facility] Work Phone: Comment on above: How was Urine Obtain ed? Urine, RandomTest performed at:[facility] [address] [place], [place] [id number] Urinalysis complete panel - Urine 0 SEEN Normal [facility] Work Phone: Comment on above: How was Urine Obtain ed? Urine, RandomTest performed at:[facility] [address] [place] [address] Urinalysis complete panel - Urine 30 mg/dL Abnormal [facility] Work Phone: Comment on above: How was Urine Obtain ed? Urine, RandomTest performed at:[facility] [address] [place], [place] [id number] Urinalysis complete panel - Urine 25 /ul Abnormal [facility] Work Phone: Comment on above: How was Urine Obtain ed? Urine, RandomTest performed at:[facility] [address] [place] [address] Serum Creatinine AND GFROrde red By: Grid Operator on 09-15-2014 CREAT,SERUM 1.8 mg/dL Abnormal 0.8-1.3 [facility] Work Phone: Creatinine mass conc 1.8 mg/dL Abnormal 0.8-1.3 Comp rehensive Internal Medicine Work Phone: EST GFR 40 mL/min Abnormal [facility] Work Phone: EST GFR - AA 48 mL/min Abnormal Comprehensiv e Internal Medicine Work Phone: GFR/1.73 sq M predicted among non-blacks MDRD vol rate/area (S/P/Bld) 40 mL/min/{1.73_m2} Abnormal Comprehe nsive Internal Medicine Work Phone: Serum Creatinine AND GFR 48 mL/min Abnormal [facility] Work Phone: Comment on above: Test performed at:[facility] [address] [place] [address] ; ordered by osmin Serum Creatinine AND GFR 40 mL/min Abnormal [facility] Medicine Work Phone: Comment on above: Test performed at:[facility] [address] [place] [address] ; ordered by osmin Serum Creatinine AND GFR 1.8 mg/dL Abnormal 0.8-1.3 [facility] Internal Medicine Work Phone: Comment on above: Test performed at:[facility] [address] [place] [address] ; ordered by osmin PSA,Total- DiagnosticOrdered By: Grid Operator on 09-06-2014 PSA, DIAGNOSTIC 0.58 ng/mL Normal 0.0-4.0 [facility] Internal Medicine Work Phone: Comment on above: This test was perfor med using the TPSA assay method for theDimension chemistry system. Values obtained with differentassay methods cannot be used interchangably.When changing PSA assays in the course of monitoring apatient, additional sequential testing should be carriedout to confirm baseline values. PSA,Total- Diagnostic 0.58 ng/mL Normal 0.0-4.0 [facility] Internal Medicine Work Phone: Comment on above: This test was perfor med using the TPSA assay method for theDimension chemistry system. Values obtained with differentassay methods cannot be used interchangably.When changing PSA assays in the course of monitoring apatient, additional sequential testing should be carriedout to confirm baseline values. Test performed at:[facility] [address] [place] [address] CBC W/Diff, AutomatedOrdered By: Grid Operator on 08-02-2014 Absolute Lymph 1.26 {X10_3/ul} Normal 0.83-4.51 [facility] Internal Medicine Work Phone: Absolute Neut 3.6 {X10_3/uL} Normal 2.0-7.7 Compreh ensive Internal Medicine Work Phone: Comment on above: Test performed at:[facility] [address] [place] [address] Basophils/100 WBC (Bld) 0.4 % Normal 0-1 [facility] Work Phone: Comment on above: Test performed at:[facility] [address] [place] [address] Basophils/100 WBC Auto (Bld) 0.4 % Normal 0-1 [facility] Work Phone: Eosinophils/100 WBC (Bld) 3.5 % Normal 0-5 [facility] Work Phone: Comment on above: Test performed at:[facility] [address] [place] [address] Eosinophils/100 WBC Auto (Bld) 3.5 % Normal 0-5 [facility] Work Phone: Erythrocyte distribution width (RBC) [Ratio] 14.4 % Normal 11.6-14.6 [facility] Work Phone: Comment on above: Test performed at:[facility] [address] [place] [address] Erythrocyte distribution width Auto Ratio (RBC) 14.4 % Normal 11.6-14.6 [facility] Work Phone: Hematocrit (Bld) [Volume fraction] 46.8 % Normal 40-54 [facility] Work Phone: Comment on above: Test performed at:[facility] [address] [place] [address] Hematocrit Auto Volume Fraction (Bld) 46.8 % Normal 40-54 Comprehens kevin Internal Medicine Work Phone: Hemoglobin mass conc (Bld) 15.7 g/dL Normal 13.0-16.5 [facility] Work Phone: Comment on above: Test performed at:[facility] [address] [place] [address] IM GRAN % 0.500 % Normal 0.0-0.9 [facility] Work Phone: Comment on above: IG% - Immature Granu locytes (promyelocytes, myelocytes andmetamyelocytes) > 1% indicates that a LEFT SHIFT is Present. Test performed at:[facility] [address] [place] [address] Lymphocytes (Bld) [#/Vol] 1.26 {X10_3/ul} Normal 0.83-4.51 [facility] Work Phone: Comment on above: Test performed at:[facility] [address] [place] [address] Lymphocytes Auto #/vol (Bld) 1.26 {X10_3/ul} Normal 0.83-4.51 [facility] Work Phone: Lymphocytes/100 WBC (Bld) 22.3 % Normal 19-41 [facility] Work Phone: Comment on above: Test performed at:[facility] [address] [place] [address] Lymphocytes/100 WBC Auto (Bld) 22.3 % Normal 19-41 [facility] Work Phone: MCH (RBC) [Entitic mass] 28.7 pg Normal 27.0-32.0 [facility] Work Phone: Comment on above: Test performed at:[facility] [address] [place] [address] MCH Auto Entitic mass (RBC) 28.7 pg Normal 27.0-32.0 [facility] Work Phone: MCHC (RBC) [Mass/Vol] 33.5 {g/gl} Normal 32-36 Co mprehensive Internal Medicine Work Phone: Comment on above: Test performed at:[facility] [address] [place] [address] MCHC Auto mass conc (RBC) 33.5 {g/gl} Normal 32-36 [facility] Work Phone: MCV (RBC) [Entitic vol] 85.6 fL Normal 80-94 [facility] Work Phone: Comment on above: Test performed at:[facility] [address] [place] [address] MCV Auto Entitic volume (RBC) 85.6 fL Normal 80-94 [facility] Work Phone: Monocytes/100 WBC Auto (Bld) 10.1 % Abnormal 0-10 [facility] Work Phone: Comment on above: Test performed at:[facility] [address] [place] [address] Neutrophils/100 WBC (Bld) 63.2 % Normal 47-70 [facility] Work Phone: Comment on above: Test performed at:[facility] [address] [place] [address] Neutrophils/100 WBC Auto (Bld) 63.2 % Normal 47-70 [facility] Work Phone: Platelet mean volume (Bld) [Entitic vol] 11.4 fL Normal 6.2-12.0 Comprehensiv e Internal Medicine Work Phone: Comment on above: Test performed at:[facility] [address] [place] [address] Platelet mean volume Auto Entitic volume (Bld) 11.4 fL Normal 6.2-12.0 [facility] Work Phone: Platelets (Bld) [#/Vol] 118 10*3/uL Abnormal 150-450 [facility] Work Phone: Comment on above: Test performed at:[facility] [address] [place] [address] Platelets Auto #/vol (Bld) 118 10*3/uL Abnormal 150-450 [facility] Work Phone: RBC (Bld) [#/Vol] 5.47 {M/mm3} Normal 4.6-6.2 [facility] Internal Medicine Work Phone: Comment on above: Test performed at:[facility] [address] [place] [address] RBC Auto #/vol (Bld) 5.47 {M/mm3} Normal 4.6-6.2 Co [facility] Internal Medicine Work Phone: RDW SD 44.4 fL Abnormal 35.1-43.9 [facility] Work Phone: Comment on above: Test performed at:[facility] [address] [place] [address] WBC (Bld) [#/Vol] 5.6 10*3/uL Normal 4.4-11.0 [facility] Internal Medicine Work Phone: Comment on above: Test performed at:[facility] [address] [place] [address] WBC Auto #/vol (Bld) 5.6 10*3/uL Normal 4.4-11.0 [facility] prehensive Internal Medicine Work Phone: CBC W/Diff, Automated 5.6 K/mm3 Normal 4.4-11.0 [facility] prehensive Internal Medicine Work Phone: CBC W/Diff, Automated 5.47 {M/mm3} Normal 4.6-6.2 C omprehensive Internal Medicine Work Phone: CBC W/Diff, Automated 15.7 g/dL Normal 13.0-16.5 [facility] prehensive Internal Medicine Work Phone: CBC W/Diff, Automated 46.8 % Normal 40-54 [facility] prehensive Internal Medicine Work Phone: CBC W/Diff, Automated 85.6 fL Normal 80-94 [facility] prehensive Internal Medicine Work Phone: CBC W/Diff, Automated 28.7 pg Normal 27.0-32.0 [facility] prehensive Internal Medicine Work Phone: CBC W/Diff, Automated 33.5 {g/gl} Normal 32-36 [facility] Work Phone: CBC W/Diff, Automated 14.4 % Normal 11.6-14.6 [facility] prehensive Internal Medicine Work Phone: CBC W/Diff, Automated 44.4 fL Abnormal 35.1-43.9 [facility] prehensive Internal Medicine Work Phone: CBC W/Diff, Automated 118 K/mm3 Abnormal 150-450 [facility] prehensive Internal Medicine Work Phone: CBC W/Diff, Automated 11.4 fL Normal 6.2-12.0 [facility] prehensive Internal Medicine Work Phone: CBC W/Diff, Automated 63.2 % Normal 47-70 [facility] prehensive Internal Medicine Work Phone: CBC W/Diff, Automated 22.3 % Normal 19-41 [facility] prehensive Internal Medicine Work Phone: CBC W/Diff, Automated 10.1 % Abnormal 0-10 [facility] prehensive Internal Medicine Work Phone: CBC W/Diff, Automated 3.5 % Normal 0-5 [facility] prehensive Internal Medicine Work Phone: CBC W/Diff, Automated 0.4 % Normal 0-1 [facility] Work [facility]: CBC W/Diff, Automated 0.500 % Normal 0.0-0.9 [facility] Work Phone: Comment on above: IG% - Immature Granu locytes (promyelocytes, myelocytes andmetamyelocytes) > 1% indicates that a LEFT SHIFT is Present. CBC W/Diff, Automated 3.6 {X10_3/uL} Normal 2.0-7.7 [facility] Work Phone: CBC W/Diff, Automated 1.26 {X10_3/ul} Normal 0.83-4.51 [facility] Work Phone: Comprehensive Metabolic Prof ilOrdered By: Grid Operator on 08-02-2014 Comprehensive Metabolic Profil 4.3 mmol/L Normal 3.5-5.1 [facility] Work Phone: Comment on above: Test performed at:[facility] [address] [place] [address] Comprehensive Metabolic Profil 101 mmol/L Normal 98-107 [facility] Work Phone: Comment on above: Test performed at:[facility] [address] [place] [address] Comprehensive Metabolic Profil 28.0 mmol/L Normal 21.0-32.0 [facility] Work Phone: Comment on above: Test performed at:[facility] [address] [place], [place] [id number] Comprehensive Metabolic Profil 6 1 Normal 5-15 [facility] Work Phone: Comment on above: Test performed at:[facility] [address] [place], [place] [id number] Comprehensive Metabolic Profil 299 mg/dL Abnormal 70-110 [facility] Work Phone: Comment on above: Glucose result great er than or equal to 200 mg/dLsuggests DIABETES MELLITUS per A.D.A. criteria. Test performed at:[facility] [address] [place], [place] [id number] Comprehensive Metabolic Profil 28 mg/dL Abnormal 7-18 [facility] Work Phone: Comment on above: Test performed at:[facility] [address] [place], [place] [id number] Comprehensive Metabolic Profil 1.9 mg/dL Abnormal 0.8-1.3 [facility] Work Phone: Comment on above: Test performed at:[facility] [address] [place] [address] Comprehensive Metabolic Profil 38 mL/min Abnormal [facility] Medicine Work Phone: Comment on above: Test performed at:[facility] [address] [place] [address] Comprehensive Metabolic Profil 46 mL/min Abnormal [facility] Medicine Work Phone: Comment on above: Test performed at:[facility] [address] [place] [address] Comprehensive Metabolic Profil 14.7 {RATIO} Normal 10-20 [facility] Work Phone: Comment on above: Test performed at:[facility] [address] [place] [address] Comprehensive Metabolic Profil 7.5 g/dL Normal 6.4-8.2 [facility] Work Phone: Comment on above: Test performed at:[facility] [address] [place] [address] Comprehensive Metabolic Profil 3.8 g/dL Normal 3.4-5.0 [facility] Work Phone: Comment on above: Test performed at:[facility] [address] [place] [address] Comprehensive Metabolic Profil 3.7 g/dL Normal 2.7-4.2 [facility] Work Phone: Comment on above: Test performed at:[facility] [address] [place] [address] Comprehensive Metabolic Profil 1.0 {RATIO} Normal 0.9-2.4 [facility] Work Phone: Comment on above: Test performed at:[facility] [address] [place] [address] Comprehensive Metabolic Profil 9.4 mg/dL Normal 8.5-10.1 [facility] Work Phone: Comment on above: Test performed at:[facility] [address] [place] [address] Comprehensive Metabolic Profil 15 U/L Normal 15-37 [facility] Work Phone: Comment on above: Test performed at:[facility] [address] [place], [place] [id number] Comprehensive Metabolic Profil 74 U/L Normal 50-136 [facility] Work Phone: Comment on above: Test performed at:[facility] [address] [place], [place] [id number] Comprehensive Metabolic Profil 31 U/L Normal 12-78 [facility] Work Phone: Comment on above: Test performed at:[facility] [address] [place], [place] [id number] Comprehensive Metabolic Profil 0.60 mg/dL Normal 0.00-4.00 [facility] Work Phone: Comment on above: Test performed at:[facility] [address] [place] [address] Comprehensive Metabolic Profil 135 mmol/L Abnormal 136-145 [facility] Work Phone: Comment on above: Test performed at:[facility] [address] [place] [address] Lipid ProfileOrdered By: Lencho tem Department Director on 08-02-2014 Cholesterol in HDL mass conc 29 mg/dL Abnormal [facility] Work Phone: Comment on above: Reference Range HDL <40 mg/dL Low HDL Cholesterol HDL >or= 60 mg/dL High HDL Cholesterol Test performed at:[facility] [address] [place] [address] Cholesterol in LDL mass conc 31 mg/dL Normal 0-130 [facility] Work Phone: Cholesterol in LDL mass conc 31 mg/dL Normal 0-130 [facility] Work Phone: Comment on above: Test performed at:[facility] [address] [place] [address] Cholesterol in VLDL mass conc 58 mg/dL Abnormal 5-40 [facility] Work Phone: Comment on above: Test performed at:[facility] [address] [place] [address] Cholesterol mass conc 118 mg/dL Normal Com prehensive Internal Medicine Work Phone: Comment on above: <200 mg/dL Desirable 200-240 mg/dL Borderline >240 mg/dL High Risk Test performed at:[facility] [address] [place], [place] [id number] Triglyceride mass conc 289 mg/dL Abnormal 0-199 [facility] Work Phone: Comment on above: Serum Triglycerides Reference Interval Normal <150 mg/dL Borderline high 150 - 199 mg/dL High 200 - 499 mg/dL Very High > or = 500 mg/dL Test performed at:[facility] [address] [place] [address] Lipid Profile 118 mg/dL Normal Comprehensi ve Internal Medicine Work Phone: Comment on above: <200 mg/dL Desirable 200-240 mg/dL Borderline >240 mg/dL High Risk Test performed at:[facility] [address] [place] [address] Lipid Profile 289 mg/dL Abnormal 0-199 Comprehensi ve Internal Medicine Work Phone: Comment on above: Serum Triglycerides Reference Interval Normal <150 mg/dL Borderline high 150 - 199 mg/dL High 200 - 499 mg/dL Very High > or = 500 mg/dL Test performed at:[facility] [address] [place] [address] Lipid Profile 29 mg/dL Abnormal Comprehensi ve Internal Medicine Work Phone: Comment on above: Reference Range HDL <40 mg/dL Low HDL Cholesterol HDL >or= 60 mg/dL High HDL Cholesterol Test performed at:[facility] [address] [place] [address] Lipid Profile 31 mg/dL Normal 0-130 Comprehensi ve Internal Medicine Work Phone: Comment on above: Test performed at:[facility] [address] [place] [address] Lipid Profile 58 mg/dL Abnormal 5-40 Comprehensi ve Internal Medicine Work Phone: Comment on above: Test performed at:[facility] [address] [place] [address] MicroalbOrdered By: Ramakrishna waters on 08-02-2014 Creatinine mass conc 590.2 {mg/g_CRE} Abnormal [facility] Work Phone: MALB:CREAT 590.2 {mg/g_CRE} Abnormal Comprehe nsive Internal Medicine Work Phone: MICROALBUMIN,UR 654.0 mg/L Normal Comprehen sive Internal Medicine Work Phone: UR CREAT 110.8 mg/dL Normal [facility] Work Phone: Microalb 110.8 mg/dL Normal [facility] Work Phone: Comment on above: Test performed at:[facility] [address] [place] [address] Microalb 654.0 mg/L Normal [facility] Work Phone: Comment on above: Test performed at:[facility] [address] [place] [address] Microalb 590.2 {mg/g_CRE} Abnormal Comprehe nsive Internal Medicine Work Phone: Comment on above: Test performed at:[facility] [address] [place] [address] Thyroid Stim Hormone (TSH)Or dered By: Grid Operator on 08-02-2014 Thyroid Stim Hormone (TSH) 1.50 {uIU/mL} Normal 0.358-3.74 [facility] Work Phone: Comment on above: Test performed at:[facility] [address] [place] [address] Vitamin D,25 HydroxyOrdered By: Grid Operator on 08-02-2014 Vitamin D 25-OH 35.5 ng/mL Normal Comprehen sive Internal Medicine Work Phone: Comment on above: Vitamin D 25(OH) Sta tus Range Deficiency <20 ng/mL (50nmol/L) Insuffciency 20 - 30 ng/mL (50 - 75 nmol/L) Sufficiency 30 - 100 ng/mL (75 - 250 nmol/L) Toxicity >100 ng/mL (>250 nmol/L) Vitamin D,25 Hydroxy 35.5 ng/mL Normal Comp rehensive Internal Medicine Work Phone: Comment on above: Vitamin D 25(OH) Sta tus Range Deficiency <20 ng/mL (50nmol/L) Insuffciency 20 - 30 ng/mL (50 - 75 nmol/L) Sufficiency 30 - 100 ng/mL (75 - 250 nmol/L) Toxicity >100 ng/mL (>250 nmol/L) Test performed at:[facility] [address] [place] [address] PSADOrdered By: System Manag er on 04-05-2014 PSAD 1.60 ng/mL Normal 0.0-4.0 [facility] Work Phone: Comment on above: This test was perfor med using the TPSA assay method for the[facility] chemistry system. Values obtained with differentassay methods cannot be used interchangably.When changing PSA assays in the course of monitoring apatient, additional sequential testing should be carriedout to confirm baseline values. HgA1C , Office ([id number])Ordere d By: Lola Lara on 02-08-2014 Hemoglobin A1c/Hemoglobin.total mass fraction (Bld) 7.1 % Normal 4.6 - 7.1 Comprehensiv e Internal Medicine Work Phone: CBCDOrdered By: System Manag er on 01-31-2014 CBCD 0.400 % Normal 0.0-0.9 [facility] Work Phone: Comment on above: IG% - Immature Granu locytes (promyelocytes, myelocytes andmetamyelocytes) > 1% indicates that a LEFT SHIFT is Present. CBCD 2.9 {X10_3/uL} Normal 2.0-7.7 Comprehens kevin [facility] Medicine Work Phone: CBCD 0.92 {X10_3/ul} Normal 0.83-4.51 Comprehen sive Internal Medicine Work Phone: CBCD 4.6 K/mm3 Normal 4.4-11.0 [facility] Work Phone: CBCD 5.00 {M/mm3} Normal 4.6-6.2 Comprehensiv e [facility] Medicine Work Phone: CBCD 14.1 g/dL Normal 13.0-16.5 [facility] Work Phone: CBCD 43.5 % Normal 40-54 [facility] Work Phone: CBCD 87.0 fL Normal 80-94 [facility] Work Phone: CBCD 28.2 pg Normal 27.0-32.0 [facility] Work Phone: CBCD 32.4 {g/gl} Normal 32-36 [facility] Work Phone: CBCD 15.6 % Abnormal 11.6-14.6 [facility] Work Phone: CBCD 49.3 fL Abnormal 35.1-43.9 [facility] Work Phone: CBCD 116 K/mm3 Abnormal 150-450 [facility] Work Phone: CBCD 11.0 fL Normal 6.2-12.0 [facility] Work Phone: CBCD 62.5 % Normal 47-70 [facility] Work Phone: CBCD 20.1 % Normal 19-41 [facility] Work Phone: CBCD 12.2 % Abnormal 0-10 [facility] Work Phone: CBCD 4.1 % Normal 0-5 [facility] Work Phone: CBCD 0.7 % Normal 0-1 [facility] Work Phone: CMPOrdered By: System Manage r on 01-31-2014 Albumin mass conc 3.7 g/dL Normal 3.4-5.0 Compreh ensive Internal Medicine Work Phone: Albumin/Globulin mass ratio 1.0 {RATIO} Normal 0.9-2.4 [facility] Work Phone: ALP enzyme act/vol 71 U/L Normal 45-117 Compre [facility] Internal Medicine Work Phone: ALT enzyme act/vol 34 U/L Normal 12-78 Compre [facility] Internal Medicine Work Phone: AST enzyme act/vol 29 U/L Normal 15-37 [facility] Internal Medicine Work Phone: Bilirubin mass conc 0.50 mg/dL Normal 0.00-1.00 Compr [facility] Internal Medicine Work Phone: Calcium mass conc 8.8 mg/dL Normal 8.5-10.1 Compreh ensive Internal Medicine Work Phone: Chloride molar conc 108 mmol/L Abnormal 98-107 Compr [facility] Internal Medicine Work Phone: CO2 molar conc 23.0 mmol/L Normal 21.0-32.0 Comprehen [facility] Internal Medicine Work Phone: Urea nitrogen mass conc 29 mg/dL Abnormal 7-18 [facility] Work Phone: Urea nitrogen/Creatinine mass ratio 17.1 {RATIO} Normal 10-20 [facility] Work Phone: CMP 43 mL/min Abnormal [facility] Work Phone: CMP 3.6 g/dL Normal 2.7-4.2 [facility] Work Phone: CMP 132 mg/dL Abnormal 70-110 [facility] Work Phone: Comment on above: Fasting Glucose resu lt greater than or equal to 126 mg/dLsuggests DIABETES MELLITUS per A.D.A. criteria. CMP 52 mL/min Abnormal [facility] Work Phone: CMP 139 mmol/L Normal 136-145 [facility] Work Phone: CMP 4.2 mmol/L Normal 3.5-5.1 [facility] Work Phone: CMP 7.3 g/dL Normal 6.4-8.2 [facility] Work Phone: CMP 1.7 mg/dL Abnormal 0.8-1.3 [facility] Work Phone: CMP 8 1 Normal 5-15 [facility] Work Phone: LIPIDOrdered By: Ramakrishna Gerda delfino on 01-31-2014 LIPID 193 mg/dL Normal 0-199 [facility] Work Phone: Comment on above: Serum Triglycerides Reference IntervalNormal <150 mg/dLBorderline high 150 - 199 mg/dLHigh 200 - 499 mg/dLVery High > or = 500 mg/dL LIPID 25 mg/dL Abnormal [facility] Work Phone: Comment on above: Reference RangeHDL < 40 mg/dL Low HDL CholesterolHDL >or= 60 mg/dL High HDL Cholesterol LIPID 39 mg/dL Normal 5-40 [facility] Work Phone: LIPID 52 mg/dL Normal 0-130 [facility] Work Phone: LIPID 116 mg/dL Normal [facility] Work Phone: Comment on above: <200 mg/dL Desirable 200-240 mg/dL Borderline>240 mg/dL High Risk HgA1C , Office ([id number])Ordere d By: Lola Lara on 08-20-2013 Hemoglobin A1c/Hemoglobin.total mass fraction (Bld) 6.0 % Normal 4.6 - 7.1 Comprehensiv e [facility] Work Phone: CBCDOrdered By: System Manag er on 08-16-2013 CBCD 0.300 % Normal 0.0-0.9 [facility] Work Phone: Comment on above: IG% - Immature Granu locytes (promyelocytes, myelocytes andmetamyelocytes) > 1% indicates that a LEFT SHIFT is Present. CBCD 0.7 % Normal 0-1 [facility] Work Phone: CBCD 3.1 % Normal 0-5 [facility] Work Phone: CBCD 9.9 % Normal 0-10 [facility] Work Phone: CBCD 20.9 % Normal 19-41 [facility] Work Phone: CBCD 11.2 fL Normal 6.2-12.0 [facility] Work Phone: CBCD 65.1 % Normal 47-70 [facility] Work Phone: CBCD 127 K/mm3 Abnormal 150-450 [facility] Work Phone: CBCD 15.5 % Abnormal 11.6-14.6 [facility] Work Phone: CBCD 47.5 fL Abnormal 35.1-43.9 [facility] Work Phone: CBCD 27.5 pg Normal 27.0-32.0 [facility] Work Phone: CBCD 32.5 {g/gl} Normal 32-36 [facility] Work Phone: CBCD 84.8 fL Normal 80-94 [facility] Work Phone: CBCD 45.6 % Normal 40-54 [facility] Work Phone: CBCD 14.8 g/dL Normal 13.0-16.5 [facility] Work Phone: CBCD 5.38 {M/mm3} Normal 4.6-6.2 Comprehensiv e [facility] Medicine Work Phone: CBCD 5.8 K/mm3 Normal 4.4-11.0 [facility] Work Phone: CBCD 3.8 {X10_3/uL} Normal 2.0-7.7 Comprehens [facility] Work Phone: CMPOrdered By: System Manage r on 08-16-2013 Albumin mass conc 3.9 g/dL Normal 3.4-5.0 Compreh ensive Internal Medicine Work Phone: Albumin/Globulin mass ratio 1.0 {RATIO} Normal 0.9-2.4 [facility] Work Phone: ALP enzyme act/vol 75 U/L Normal 50-136 [facility] Internal Medicine Work Phone: ALT enzyme act/vol 30 U/L Normal 12-78 [facility] Internal Medicine Work Phone: AST enzyme act/vol 24 U/L Normal 15-37 [facility] Internal Medicine Work Phone: Bilirubin mass conc 0.60 mg/dL Normal 0.00-1.00 Compr [facility] Internal Medicine Work Phone: Calcium mass conc 9.0 mg/dL Normal 8.5-10.1 Compreh [facility] Internal Medicine Work Phone: Chloride molar conc 103 mmol/L Normal 98-107 Compr [facility] Internal Medicine Work Phone: CO2 molar conc 28.0 mmol/L Normal 21.0-32.0 Comprehen [facility] Internal Medicine Work Phone: Urea nitrogen mass conc 37 mg/dL Abnormal 7-18 [facility] Internal Medicine Work Phone: Urea nitrogen/Creatinine mass ratio 17.6 {RATIO} Normal 10-20 [facility] Work Phone: CMP 5 1 Normal 5-15 [facility] Work Phone: CMP 4.7 mmol/L Normal 3.5-5.1 [facility] Work Phone: CMP 136 mmol/L Normal 136-145 [facility] Work Phone: CMP 4.1 g/dL Normal 2.7-4.2 [facility] Work Phone: CMP 8.0 g/dL Normal 6.4-8.2 [facility] Work Phone: CMP 41 mL/min Abnormal [facility] Work Phone: CMP 120 mg/dL Abnormal 70-110 [facility] Work Phone: Comment on above: Fasting Glucose resu lt from 110 to <126 mg/dLsuggests IMPAIRED HOMEOSTASIS per A.D.A. criteria. CMP 2.1 mg/dL Abnormal 0.8-1.3 [facility] Work Phone: CMP 34 mL/min Abnormal [facility] Work Phone: LIPIDOrdered By: System Gerda delfion on 08-16-2013 LIPID 234 mg/dL Abnormal 0-199 [facility] Work Phone: Comment on above: Serum Triglycerides Reference IntervalNormal <150 mg/dLBorderline high 150 - 199 mg/dLHigh 200 - 499 mg/dLVery High > or = 500 mg/dL LIPID 28 mg/dL Abnormal [facility] Work Phone: Comment on above: Reference RangeHDL < 40 mg/dL Low HDL CholesterolHDL >or= 60 mg/dL High HDL Cholesterol LIPID 130 mg/dL Normal [facility] Work Phone: Comment on above: <200 mg/dL Desirable 200-240 mg/dL Borderline>240 mg/dL High Risk LIPID 47 mg/dL Abnormal 5-40 [facility] Work Phone: LIPID 55 mg/dL Normal 0-130 [facility] Work Phone: MIACREOrdered By: System Man harryr on 08-16-2013 MIACRE 140.7 mg/dL Normal [facility] Work Phone: MIACRE 181.9 {mg/g_CRE} Abnormal Comprehe nsive Internal Medicine Work Phone: MIACRE 256.0 mg/L Normal [facility] Work Phone: UACOrdered By: System Manage r on 08-16-2013 UAC Clear Normal [facility] Work Phone: Comment on above: How was Urine Obtain ed? CLEAN CATCH UAC 1.020 1 Normal 1.002-1.03 0 [facility] Work Phone: Comment on above: How was Urine Obtain ed? CLEAN CATCH UAC Yellow Normal [facility] Work Phone: Comment on above: How was Urine Obtain ed? CLEAN CATCH UAC Normal Normal [facility] Work Phone: Comment on above: How was Urine Obtain ed? CLEAN CATCH UAC Negative Normal [facility] Work Phone: Comment on above: How was Urine Obtain ed? CLEAN CATCH UAC 5.0 1 Normal 5.0 - 8.0 [facility] Work Phone: Comment on above: How was Urine Obtain ed? CLEAN CATCH UAC 30 mg/dL Abnormal [facility] Work Phone: Comment on above: How was Urine Obtain ed? CLEAN CATCH UAC 0 SEEN Normal 0-5 [facility] Work Phone: Comment on above: How was Urine Obtain ed? CLEAN CATCH URICOrdered By: System Manag er on 08-16-2013 URIC 6.4 mg/dL Normal 3.5-7.2 [facility] Work Phone: HgA1C , Office ([id number])Ordere d By: Bethany Bradford on 05-10-2013 Hemoglobin A1c/Hemoglobin.total mass fraction (Bld) 7.5 % Abnormal 4.6 - 7.1 Comprehensiv e [facility] Work Phone: CBCDOrdered By: System Manag er on 05-05-2013 CBCD 11.9 % Abnormal 0-10 [facility] Work Phone: CBCD 134 K/mm3 Abnormal 150-450 [facility] Work Phone: CBCD 48.1 fL Abnormal 35.1-43.9 [facility] Work Phone: CBCD 86.3 fL Normal 80-94 [facility] Work Phone: CBCD 15.2 % Abnormal 11.6-14.6 [facility] Work Phone: CBCD 32.3 {g/gl} Normal 32-36 [facility] Work Phone: CBCD 3.2 % Normal 0-5 [facility] Work Phone: CBCD 0.5 % Normal 0-1 [facility] Work Phone: CBCD 0.200 % Normal 0.0-0.9 [facility] Work Phone: Comment on above: IG% - Immature Granu locytes (promyelocytes, myelocytes andmetamyelocytes) > 1% indicates that a LEFT SHIFT is Present. CBCD 27.9 pg Normal 27.0-32.0 [facility] Work Phone: CBCD 13.8 g/dL Normal 13.0-16.5 [facility] Work Phone: CBCD 42.7 % Normal 40-54 [facility] Work Phone: CBCD 2.4 {X10_3/uL} Normal 2.0-7.7 Comprehens [facility] Work Phone: CBCD 4.95 {M/mm3} Normal 4.6-6.2 Comprehensiv e [facility] Medicine Work Phone: CBCD 4.4 K/mm3 Normal 4.4-11.0 [facility] Work Phone: CBCD 54.2 % Normal 47-70 [facility] Work Phone: CBCD 12.0 fL Normal 6.2-12.0 [facility] Work Phone: CBCD 30.0 % Normal 19-41 [facility] Internal Medicine Work Phone: CMPOrdered By: System Manage r on 05-05-2013 Albumin mass conc 3.4 g/dL Normal 3.4-5.0 Compreh ensive Internal Medicine Work Phone: Albumin/Globulin mass ratio 0.9 {RATIO} Normal 0.9-2.4 [facility] Internal Medicine Work Phone: ALP enzyme act/vol 54 U/L Normal 50-136 [facility] Work [facility]: ALT enzyme act/vol 33 U/L Normal 12-78 [facility] Internal Medicine Work Phone: AST enzyme act/vol 20 U/L Normal 15-37 [facility] Internal [facility] Work Phone: Bilirubin mass conc 0.50 mg/dL Normal 0.00-1.00 Compr ehensive Internal Medicine Work Phone: Calcium mass conc 8.6 mg/dL Normal 8.5-10.1 Compreh ensive Internal Medicine Work Phone: Chloride molar conc 106 mmol/L Normal 98-107 Compr ehensive [facility] Medicine Work Phone: CO2 molar conc 24.0 mmol/L Normal 21.0-32.0 Comprehen sive Internal Medicine Work Phone: Urea nitrogen mass conc 31 mg/dL Abnormal 7-18 [facility] Work Phone: Urea nitrogen/Creatinine mass ratio 15.5 {RATIO} Normal 10-20 [facility] Work Phone: CMP 114 mg/dL Abnormal 70-110 [facility] Work Phone: Comment on above: Fasting Glucose resu lt from 110 to <126 mg/dLsuggests IMPAIRED HOMEOSTASIS per A.D.A. criteria. CMP 2.0 mg/dL Abnormal 0.8-1.3 [facility] Work Phone: CMP 36 mL/min Abnormal [facility] Work Phone: CMP 12 1 Normal 5-15 [facility] Work Phone: CMP 4.2 mmol/L Normal 3.5-5.1 [facility] Work Phone: CMP 142 mmol/L Normal 136-145 [facility] Work Phone: CMP 3.8 g/dL Normal 2.7-4.2 [facility] Work Phone: CMP 44 mL/min Abnormal [facility] Work Phone: CMP 7.2 g/dL Normal 6.4-8.2 [facility] Work Phone: LIPIDOrdered By: System Gerda delfino on 05-05-2013 LIPID 31 mg/dL Abnormal [facility] Work Phone: Comment on above: Reference RangeHDL < 40 mg/dL Low HDL CholesterolHDL >or= 60 mg/dL High HDL Cholesterol LIPID 176 mg/dL Normal 0-199 [facility] Work Phone: Comment on above: Serum Triglycerides Reference IntervalNormal <150 mg/dLBorderline high 150 - 199 mg/dLHigh 200 - 499 mg/dLVery High > or = 500 mg/dL LIPID 129 mg/dL Normal [facility] Work Phone: Comment on above: <200 mg/dL Desirable 200-240 mg/dL Borderline>240 mg/dL High Risk LIPID 35 mg/dL Normal 5-40 [facility] Work Phone: LIPID 63 mg/dL Normal 0-130 [facility] Work Phone: MIACREOrdered By: System Man ager on 05-05-2013 MIACRE 229.1 {mg/g_CRE} Abnormal Comprehe nsive Internal Medicine Work Phone: MIACRE 272.0 mg/L Normal [facility] Work Phone: MIACRE 118.7 mg/dL Normal [facility] Work Phone: UACOrdered By: System Manage r on 05-05-2013 UAC 25 /ul Abnormal [facility] Work Phone: Comment on above: How was Urine Obtain ed? CLEAN CATCH UAC Negative Normal [facility] Work Phone: Comment on above: How was Urine Obtain ed? CLEAN CATCH UAC Normal Normal [facility] Work Phone: Comment on above: How was Urine Obtain ed? CLEAN CATCH UAC 30 mg/dL Abnormal [facility] Work Phone: Comment on above: How was Urine Obtain ed? CLEAN CATCH UAC 5.0 1 Normal 5.0 - 8.0 [facility] Work Phone: Comment on above: How was Urine Obtain ed? CLEAN CATCH UAC 1.020 1 Normal 1.002-1.03 0 [facility] Work Phone: Comment on above: How was Urine Obtain ed? CLEAN CATCH UAC Clear Normal [facility] Work Phone: Comment on above: How was Urine Obtain ed? CLEAN CATCH UAC Yellow Normal [facility] Work Phone: Comment on above: How was Urine Obtain ed? CLEAN CATCH UAC 0 SEEN Normal [facility] Work Phone: Comment on above: How was Urine Obtain ed? CLEAN CATCH UAC 0-5 SEEN Normal 0-5 [facility] Work Phone: Comment on above: How was Urine Obtain ed? CLEAN CATCH URICOrdered By: Ramakrishna Ross er on 05-05-2013 URIC 8.1 mg/dL Abnormal 3.5-7.2 [facility] Work Phone: HgA1C , Office ([id number])Ordere d By: Bethany Bradford on 01-04-2013 Hemoglobin A1c/Hemoglobin.total mass fraction (Bld) 9.2 % Abnormal 4.6 - 7.1 Comprehensiv e [facility] Medicine Work Phone: CBCMDOrdered By: Ramakrishna Lorenz delfino on 12-30-2012 CBCMD 0.70 % Abnormal 0.0-0.0 [facility] Work Phone: CBCMD 2.3 3/uL Normal 2.0-7.7 [facility] Work Phone: CBCMD 4.2 {k/mm3} Abnormal 4.4-11.0 [facility] Work Phone: CBCMD 4.68 {M/mm3} Normal 4.6-6.2 Comprehensiv e [facility] Medicine Work Phone: CBCMD 13.0 g/dL Normal 13.0-16.5 [facility] Work Phone: CBCMD 39.8 % Abnormal 40-54 [facility] Work Phone: CBCMD 85.0 fL Normal 80-94 [facility] Work Phone: CBCMD 27.8 pg Normal 27.0-32.0 [facility] Work Phone: CBCMD 32.7 g/dL Normal 32-36 [facility] Work Phone: CBCMD 14.5 % Normal 11.6-14.6 [facility] Work Phone: CBCMD 45.3 fL Abnormal 35.1-43.9 [facility] Work Phone: CBCMD 165 K/mm3 Normal 150-450 [facility] Work Phone: CBCMD 10.7 fL Normal 6.2-12.0 [facility] Work Phone: CBCMD 56.3 % Normal 47-70 [facility] Work Phone: CBCMD 29.1 % Normal 19-41 [facility] Work Phone: CBCMD 9.1 % Normal 0-10 [facility] Work Phone: CBCMD 4.1 % Normal 0-5 [facility] Work Phone: CBCMD 0.7 % Normal 0-1 [facility] Work Phone: CMPOrdered By: System Manage r on 12-30-2012 CMP 4.1 mmol/L Normal 3.5-5.1 [facility] Work Phone: CMP 104 mmol/L Normal 98-107 [facility] Work Phone: CMP 250 mg/dL Abnormal 70-110 [facility] Work Phone: Comment on above: Glucose result great er than or equal to 200 mg/dLsuggests DIABETES MELLITUS per A.D.A. criteria. CMP 22 mg/dL Abnormal 7-18 [facility] Work Phone: CMP 2.0 mg/dL Abnormal 0.8-1.3 [facility] Work Phone: CMP 36 mL/min Abnormal [facility] Work Phone: CMP 44 mL/min Abnormal [facility] Work Phone: CMP 11.0 {RATIO} Normal 10-20 Comprehensiv e [facility] Medicine Work Phone: CMP 7.2 g/dL Normal 6.4-8.2 [facility] Work Phone: CMP 3.5 g/dL Normal 3.4-5.0 [facility] Work Phone: CMP 3.7 g/dL Normal 2.7-4.2 [facility] Work Phone: CMP 0.9 {RATIO} Normal 0.9-2.4 [facility] Work Phone: CMP 8.8 mg/dL Normal 8.5-10.1 [facility] Work Phone: CMP 17 U/L Normal 15-37 [facility] Work Phone: CMP 80 U/L Normal 50-136 [facility] Work Phone: CMP 30 U/L Normal 12-78 [facility] Work Phone: CMP 0.40 mg/dL Normal 0.00-1.00 [facility] Work Phone: CMP 25.0 mmol/L Normal 21.0-32.0 [facility] Work Phone: CMP 8 1 Normal 5-15 [facility] Work Phone: CMP 137 mmol/L Normal 136-145 [facility] Work Phone: LIPIDOrdered By: Ramakrishna saleh on 12-30-2012 LIPID 144 mg/dL Normal [facility] Work Phone: Comment on above: <200 mg/dL Desirable 200-240 mg/dL Borderline>240 mg/dL High Risk LIPID 25 mg/dL Abnormal [facility] Work Phone: Comment on above: Reference RangeHDL < 40 mg/dL Low HDL CholesterolHDL >or= 60 mg/dL High HDL Cholesterol LIPID 49 mg/dL Normal 0-130 [facility] Work Phone: LIPID 70 mg/dL Abnormal 5-40 [facility] Work Phone: LIPID 348 mg/dL Abnormal [facility] Work Phone: Comment on above: Serum Triglycerides Reference IntervalNormal <150 mg/dLBorderline high 150 - 199 mg/dLHigh 200 - 499 mg/dLVery High > or = 500 mg/dL THYROIDOrdered By: Ramakrishna nava on 09-29-2012 THYROID See Note Normal [facility] Work Phone: Comment on above: PROCEDURE: THYROID U LTRASOUND REASON FOR EXAM: Male, 67 years old. Nontoxic goiter. TECHNIQUE: Ultrasound evaluation of the thyroid was performed withreal-time and static fernandez-scale imaging. COMPARISON: Comparison is made with prior study dated August. FINDINGS: RIGHT LOBE: The right lobe of the thyroid gland measures 5.3 cm x 1.9 cmby 2.0 cm. There is a homogeneous echotexture. Once again, 3hypoechoic,solid nodules are seen in the right lobe. The largest measures 8 mm x 8mmx 6 mm.. It is in the mid pole. LEFT LOBE: The left lobe of the thyroid gland measures 5.5 cm x 2.4 cmby2.0 cm. There is a homogeneous echotexture. In the lower pole, there isa8mm by 11 mm x 10 mm hypoechoic solid nodule. This is unchanged. ISTHMUS: The isthmus measures 3.0 mm. IMPRESSION:Stable examination. Three sub-centimeters nodules in the right lobe andsingle stable nodule in the left lobe. Signed:Rivera Peters M.D.September 29, 2012 at 11:30:54 AM [id number] Signed GP/GP If you are the referring physician and would like to consult with theradiologist who provided this interpretation, please contact Kelli Kasper at [phone]. If this radiologist is unavailable, youwill be directed to another radiologist to assist. If you are a patient with a question regarding this report, pleasecontactyour referring physician directly. Professional Interpretation Provided By: [employer], Phone , These documents contain legally protected and confidential healthinformation intended only for the use of the individual or entity namedabove. If you are not the intended recipient, you are hereby notifiedthatany disclosure, copying, distribution, or other use of these documents isstrictly prohibited. If you have received this information in error,pleasenotify the sender immediately and arrange for the return or destructionofthese documents. Dictated on 09/29/12 0818 by Ghazala Peters MDscribed on 09/29/12 1445 by ITS IMPORTSign by Rivera Peters MD on 09/29/12 1446 Sign by: Lorraine DODGE,Rivera HgA1C , Office ([id number])Ordere d By: Bethany Bradford on 09-01-2012 Hemoglobin A1c/Hemoglobin.total mass fraction (Bld) 8.6 % Abnormal 4.6 - 7.1 Comprehensiv e Internal Medicine Work Phone: CBC WITH MANUAL DIFF ([id number]) Ordered By: Grid Operator on 08-25-2012 Basophils (Bld) [#/Vol] 0.1 {x10E3/uL} Normal 0.0-0.2 [facility] Work Phone: Comment on above: PATIENT WAS FASTINGP ERFORMED BY: Despegar.com70 [facility] [id number] Information: SRC: URINE Basophils Auto #/vol (Bld) 0.1 {x10E3/uL} Normal 0.0-0.2 [facility] Work Phone: Basophils/100 WBC (Bld) 1 % Normal 0-3 [facility] Work Phone: Comment on above: PATIENT WAS FASTINGP ERFORMED BY: Despegar.com70 [facility] [id number] Information: SRC: URINE Basophils/100 WBC Auto (Bld) 1 % Normal 0-3 [facility] Work Phone: Eosinophils (Bld) [#/Vol] 0.2 {x10E3/uL} Normal 0.0-0.4 [facility] Work Phone: Comment on above: PATIENT WAS FASTINGP ERFORMED BY: Banyan Branch Etqdri5728 [facility] [id number] Information: SRC: URINE Eosinophils Auto #/vol (Bld) 0.2 {x10E3/uL} Normal 0.0-0.4 [facility] Work Phone: Eosinophils/100 WBC (Bld) 4 % Normal 0-7 [facility] Work Phone: Comment on above: PATIENT WAS FASTINGP ERFORMED BY: KEVIN Nathlin6370 [facility] [id number] Information: SRC: URINE Eosinophils/100 WBC Auto (Bld) 4 % Normal 0-7 [facility] Work Phone: Erythrocyte distribution width (RBC) [Ratio] 15.8 % Abnormal 12.3-15.4 [facility] Work Phone: Comment on above: PATIENT WAS FASTINGP ERFORMED BY: KEVIN Nathlin6370 [facility] [id number] Information: SRC: URINE Erythrocyte distribution width Auto Ratio (RBC) 15.8 % Abnormal 12.3-15.4 [facility] Work Phone: Hematocrit (Bld) [Volume fraction] 42.3 % Normal 37.5-51.0 [facility] Work Phone: Comment on above: PATIENT WAS FASTINGP ERFORMED BY: KEVIN Nathlin6370 [facility] [id number] Information: SRC: URINE Hematocrit Auto Volume Fraction (Bld) 42.3 % Normal 37.5-51.0 [facility] Internal Medicine Work Phone: Hemoglobin mass conc (Bld) 13.6 g/dL Normal 12.6-17.7 [facility] Work Phone: Comment on above: PATIENT WAS FASTINGP ERFORMED BY: KEVIN Nathlin6370 [facility] [id number] Information: SRC: URINE Immature granulocytes #/vol (Bld) 0.0 {x10E3/uL} Normal 0.0-0.1 [facility] Work Phone: Comment on above: PATIENT WAS FASTINGP ERFORMED BY: KEVIN Nathlin6370 [facility] [id number] Information: SRC: URINE Immature granulocytes/100 WBC (Bld) 0 % Normal 0-2 [facility] Work Phone: Comment on above: PATIENT WAS FASTINGP ERFORMED BY: KEVIN [address]ath[address]in [place] [id number] Information: SRC: URINE Lymphocytes (Bld) [#/Vol] 1.5 {x10E3/uL} Normal 0.7-4.5 [facility] Work Phone: Comment on above: PATIENT WAS FASTINGP ERFORMED BY: KEVIN [place] [id number] [facility] [id number] Information: SRC: URINE Lymphocytes Auto #/vol (Bld) 1.5 {x10E3/uL} Normal 0.7-4.5 [facility] Work Phone: Lymphocytes/100 WBC (Bld) 27 % Normal 14-46 [facility] Work Phone: Comment on above: PATIENT WAS FASTINGP ERFORMED BY: KVEIN [address] [id number] Information: SRC: URINE Lymphocytes/100 WBC Auto (Bld) 27 % Normal 14-46 [facility] Work Phone: MCH (RBC) [Entitic mass] 28.5 pg Normal 26.6-33.0 [facility] Work Phone: Comment on above: PATIENT WAS FASTINGP ERFORMED BY: KEVIN [facility] CenterFatmata[address] [id number] Information: SRC: URINE MCH Auto Entitic mass (RBC) 28.5 pg Normal 26.6-33.0 [facility] Work Phone: MCHC (RBC) [Mass/Vol] 32.2 g/dL Normal 31.5-35.7 [facility] prehensive Internal Medicine Work Phone: Comment on above: PATIENT WAS FASTINGP ERFORMED BY: KEVIN [address] [id number] Information: SRC: URINE MCHC Auto mass conc (RBC) 32.2 g/dL Normal 31.5-35.7 [facility] Work Phone: MCV (RBC) [Entitic vol] 89 fL Normal 79-97 [facility] Work Phone: Comment on above: PATIENT WAS FASTINGP ERFORMED BY: [place] [id number] [facility] [id number] Information: SRC: URINE MCV Auto Entitic volume (RBC) 89 fL Normal 79-97 [facility] Work Phone: Monocytes (Bld) [#/Vol] 0.4 {x10E3/uL} Normal 0.1-1.0 [facility] Work Phone: Comment on above: PATIENT WAS FASTINGP ERFORMED BY: [place] [id number] [facility] [id number] Information: SRC: URINE Monocytes Auto #/vol (Bld) 0.4 {x10E3/uL} Normal 0.1-1.0 [facility] Work Phone: Monocytes/100 WBC (Bld) 8 % Normal 4-13 [facility] Work Phone: Comment on above: PATIENT WAS FASTINGP ERFORMED BY: [place] [id number] [facility] [id number] Information: SRC: URINE Monocytes/100 WBC Auto (Bld) 8 % Normal 4-13 [facility] Work Phone: Neutrophils (Bld) [#/Vol] 3.4 {x10E3/uL} Normal 1.8-7.8 [facility] Work Phone: Comment on above: PATIENT WAS FASTINGP ERFORMED BY: [place] [id number] [facility] [id number] Information: SRC: URINE Neutrophils Auto #/vol (Bld) 3.4 {x10E3/uL} Normal 1.8-7.8 [facility] Work Phone: Neutrophils/100 WBC (Bld) 60 % Normal 40-74 [facility] Work Phone: Comment on above: PATIENT WAS FASTINGP ERFORMED BY: [place] [id number] [facility] [id number] Information: SRC: URINE Neutrophils/100 WBC Auto (Bld) 60 % Normal 40-74 [facility] Internal Medicine Work Phone: Platelets (Bld) [#/Vol] 151 {x10E3/uL} Normal 140-415 [facility] Work Phone: Comment on above: PATIENT WAS FASTINGP ERFORMED BY: KEVIN DailyDealgina NathCgidoc6621G-CONSelect [facility]ty Hospital [facility] [id number] Information: SRC: URINE Platelets Auto #/vol (Bld) 151 {x10E3/uL} Normal 140-415 [facility] Internal Medicine Work Phone: RBC (Bld) [#/Vol] 4.78 {x10E6/uL} Normal 4.14-5.80 [facility] Internal Medicine Work Phone: Comment on above: PATIENT WAS FASTINGP ERFORMED BY: KEVIN AnsarihiredMYway.comgina NathFkcqpy4614G-CONSelect Specialty Hospital [facility] [id number] Information: SRC: URINE RBC Auto #/vol (Bld) 4.78 {x10E6/uL} Normal 4.14-5.80 [facility] Internal Medicine Work Phone: WBC (Bld) [#/Vol] 5.5 {x10E3/uL} Normal 4.0-10.5 [facility] Internal Medicine Work Phone: Comment on above: PATIENT WAS FASTINGP ERFORMED BY: KEVIN DailyDealgina Mtqmxk5013 [facility] [id number] Information: SRC: URINE WBC Auto #/vol (Bld) 5.5 {x10E3/uL} Normal 4.0-10.5 [facility] Internal Medicine Work Phone: CREATININE CLEARANCE ([id number]) Ordered By: Grid Operator on 08-25-2012 Creatinine mass conc 1.76 mg/dL Abnormal 0.76-1.27 [facility] Internal Medicine Work Phone: Comment on above: via 24 hour urine; P ATIENT NOT FASTINGPERFORMED BY: KEVIN Oparalin6370 [facility] [id number] Information: SRC: URINE 08-24-12@640AM FINISH @645AM Creatinine mass conc (U) 110.3 mg/dL Normal 22.0-328.0 [facility] Work Phone: Comment on above: via 24 hour urine; P ATIENT NOT FASTINGPERFORMED BY: KEVIN DailyDeal Jxqwax9728 [facility] [id number] Information: SRC: URINE 08-24-12@640AM FINISH @645AM Creatinine mass/time (24H U) 1930.3 {mg/24_hr} Normal 1000.0-200 0.0 [facility] Work Phone: Comment on above: via 24 hour urine; P ATIENT NOT FASTINGPERFORMED BY: KEVIN [employer] Here Ljugjk2227 [facility] [id number] Information: SRC: URINE 08-24-12@640AM FINISH @645AM Creatinine renal clearance 24H Flow (Urine and Serum or Plasma) 76 mL/min Abnormal 97-137 [facility] Work Phone: Comment on above: The above range is b ased on 1.73 square meter average body surfacearea. via 24 hour urine; P ATIENT NOT FASTINGPERFORMED BY: KEVIN Roadnet70 [facility] [id number] Information: SRC: URINE 08-24-12@640AM FINISH @645AM GFR/1.73 sq M predicted among blacks CKD-EPI vol rate/area (S/P/Bld) 45 mL/min/1.73 Abnormal Comprehensiv e Internal Medicine Work Phone: Comment on above: via 24 hour urine; P ATIENT NOT FASTINGPERFORMED BY: KEVIN DailyDeal Lemmir8219 [facility] [id number] Information: SRC: URINE 08-24-12@640AM FINISH @645AM GFR/1.73 sq M predicted among non-blacks CKD-EPI vol rate/area (S/P/Bld) 39 mL/min/1.73 Abnormal [facility] Work Phone: Comment on above: via 24 hour urine; P ATIENT NOT FASTINGPERFORMED BY: KEVIN LabCogina Fhzjum33[address] RoadDublin [place] [id number] Information: SRC: URINE 08-24-12@640AM FINISH @645AM LIPID PANEL ([id number])Ordered B y: Grid Operator on 08-25-2012 Cholesterol in HDL mass conc 30 mg/dL Abnormal [facility] Work Phone: Comment on above: According to ATP-III Guidelines, HDL-C >59 mg/dL is considered anegative risk factor for CHD. PATIENT WAS FASTINGP ERFORMED BY: KEVIN LabCogina Fdiiav4693 [address] RoadDublin [place] [id number] Cholesterol in LDL mass conc 38 mg/dL Normal 0-99 [facility] Work Phone: Comment on above: PATIENT WAS FASTINGP ERFORMED BY: KEVIN LabCogina Jropca1399 [address] RoadDublin [place] [id number] Cholesterol in LDL/Cholesterol in HDL mass ratio 1.3 {ratio_units} Normal 0.0-3.6 [facility] Work Phone: Comment on above: PATIENT WAS FASTINGP ERFORMED BY: KEVIN LabAlcides Ffmfkk[address] Therapeutic SystemsDublin [place] [id number] Cholesterol in VLDL mass conc 75 mg/dL Abnormal 5-40 [facility] Work Phone: Comment on above: PATIENT WAS FASTINGP ERFORMED BY: KEVIN [facility] Syiecd5808 [address] RoadDuin [place] [id number] Cholesterol mass conc 143 mg/dL Normal 100-199 [facility] prehensive Internal Medicine Work Phone: Comment on above: PATIENT WAS FASTINGP ERFORMED BY: KEVIN [facility] Jhwkue5657 [address] RoadDublin [place] [id number] Triglyceride mass conc 375 mg/dL Abnormal 0-149 [facility] Work Phone: Comment on above: PATIENT WAS FASTINGP ERFORMED BY: KEVIN [facility] Qxtsnl9863 [address] RoadDublin [place] [id number] METABOLIC PANEL, COMPREHENSI VE ([id number])Ordered By: Grid Operator on 08-25-2012 Albumin mass conc 4.5 g/dL Normal 3.6-4.8 Compreh ensive Internal Medicine Work Phone: Comment on above: PATIENT WAS FASTINGP ERFORMED BY: CB [facility] Adjrew67[address] RoadDublin [place] [id number] Albumin/Globulin mass ratio 1.6 {ratio} Normal 1.1-2.5 [facility] Work Phone: Comment on above: PATIENT WAS FASTINGP ERFORMED BY: CB [facility] Oszqgx17[address] RoadDublin [place] [id number] ALP enzyme act/vol 60 [iU]/L Normal 25-160 Compre [facility] Internal Medicine Work Phone: Comment on above: PATIENT WAS FASTINGP ERFORMED BY: CB [facility] Ohwlnn1154 [address] RoadDublin [place] [id number] ALT enzyme act/vol 28 [iU]/L Normal 0-44 Compre [facility] Internal Medicine Work Phone: Comment on above: PATIENT WAS FASTINGP ERFORMED BY: CB [facility] Xchkvu5[address] RoadDublin [place] [id number] AST enzyme act/vol 23 [iU]/L Normal 0-40 Compre [facility] Internal Medicine Work Phone: Comment on above: PATIENT WAS FASTINGP ERFORMED BY: CB [facility] Dczher8[address] RoadDublin [place] [id number] Bilirubin mass conc 0.5 mg/dL Normal 0.0-1.2 Compr [facility] Internal Medicine Work Phone: Comment on above: PATIENT WAS FASTINGP ERFORMED BY: CB [facility] Twvlfs30[address] RoadDublin [place] [id number] Calcium mass conc 9.2 mg/dL Normal 8.6-10.2 Compreh [facility] av[facility]aleive Internal Medicine Work Phone: Comment on above: PATIENT WAS FASTINGP ERFORMED BY: CB [facility] Mwxeyh[address] [place] [id number] Chloride molar conc 103 mmol/L Normal 97-108 Compr ensive Internal Medicine Work Phone: Comment on above: PATIENT WAS FASTINGP ERFORMED BY: KEVIN [facility] Eqmpuf0504 [address]blin [place] [id number] CO2 molar conc 21 mmol/L Normal 20-32 Comprehens kevin Internal Medicine Work Phone: Comment on above: PATIENT WAS FASTINGP ERFORMED BY: CB [facility] Wdxzjb[address] [facility] [id number] Creatinine mass conc 1.85 mg/dL Abnormal 0.76-1.27 Comp [facility] Work Phone: Comment on above: PATIENT WAS FASTINGP ERFORMED BY: CB [facility] Jewfch[address] [facility] [id number] GFR/1.73 sq M predicted among blacks CKD-EPI vol rate/area (S/P/Bld) 43 mL/min/1.73 Abnormal Comprehensiv e Internal Medicine Work Phone: Comment on above: PATIENT WAS FASTINGP ERFORMED BY: KEVIN [facility] Iwuqhf[address] [facility] [id number] GFR/1.73 sq M predicted among non-blacks CKD-EPI vol rate/area (S/P/Bld) 37 mL/min/1.73 Abnormal [facility] Work Phone: Comment on above: PATIENT WAS FASTINGP ERFORMED BY: KEVIN [facility] Quomtn[address] [facility] [id number] Globulin (S) [Mass/Vol] 2.9 g/dL Normal 1.5-4.5 [facility] Work Phone: Comment on above: PATIENT WAS FASTINGP ERFORMED BY: CB [facility] Fhttzp[address] [facility] [id number] Globulin Calculated mass conc (S) 2.9 g/dL Normal 1.5-4.5 [facility] Work Phone: Glucose mass conc 206 mg/dL Abnormal 65-99 Compreh ensive Internal Medicine Work Phone: Comment on above: PATIENT WAS FASTINGP ERFORMED BY: CB [facility] Lvjbrn[address] [facility] [id number] Potassium molar conc 4.4 mmol/L Normal 3.5-5.2 Comp rehensive Internal Medicine Work Phone: Comment on above: PATIENT WAS FASTINGP ERFORMED BY: KEVIN Flash Hppvbo[address] [facility]in [place] [id number] Protein mass conc 7.4 g/dL Normal 6.0-8.5 Compreh ensive Internal Medicine Work Phone: Comment on above: PATIENT WAS FASTINGP ERFORMED BY: KEVIN LabFatmata Yxxwlm[address] [facility] [id number] Sodium molar conc 139 mmol/L Normal 134-144 Compreh ensive Internal Medicine Work Phone: Comment on above: PATIENT WAS FASTINGP ERFORMED BY: KEVIN Nathlin6370 [facility] [id number] Urea nitrogen mass conc 22 mg/dL Normal 8-27 [facility] Work Phone: Comment on above: PATIENT WAS FASTINGP ERFORMED BY: KEVIN Nathlin6370 [facility] [id number] Urea nitrogen/Creatinine mass ratio 12 mg/mg Normal 10-22 [facility] Work Phone: Comment on above: PATIENT WAS FASTINGP ERFORMED BY: KEVIN Nathlin6370 [facility] [id number] MICROALBUMINOrdered By: Syst em Department Director on 08-25-2012 Albumin DL <= 20 mg/L mass conc (U) 326.9 ug/mL Abnormal 0.0-17.0 [facility] Work Phone: Comment on above: PATIENT WAS FASTINGP ERFORMED BY: KEVIN LabCo Imuanj3624 [facility] [id number] Albumin/Creatinine mass ratio (U) 244.3 {mg/g_creat} Abnormal 0.0-30.0 [facility] Work Phone: Comment on above: PATIENT WAS FASTINGP ERFORMED BY: KEVIN LabI-[facility] Umifyg6668 [facility] [id number] Creatinine mass conc (U) 133.8 mg/dL Normal 22.0-328.0 [facility] Work Phone: Comment on above: PATIENT WAS FASTINGP ERFORMED BY: KEVIN [facility] Onmavl[address] [facility] [facility] [id number] BMPOrdered By: System Manage r on 06-30-2012 Anion gap 3 molar conc 11 mmol/L Normal 5-15 [facility] Work Phone: Anion gap [Moles/Vol] 11 mmol/L Normal 5-15 Com prehensive Internal Medicine Work Phone: Calcium mass conc 9.0 mg/dL Normal 8.5-10.1 Compreh ensive Internal Medicine Work Phone: Chloride molar conc 104 mmol/L Normal 98-107 Compr ehensive Internal Medicine Work Phone: CO2 molar conc 22.0 mmol/L Normal 21.0-32.0 Comprehen sive Internal Medicine Work Phone: Creatinine mass conc 2.3 mg/dL Abnormal 0.8-1.3 Comp rehensive Internal Medicine Work Phone: GFR/1.73 sq M predicted among blacks MDRD vol rate/area (S/P/Bld) 36 mL/min/{1.73_m2} Abnormal Comprehe nsive Internal Medicine Work Phone: GFR/1.73 sq M.predicted MDRD (S/P/Bld) [Vol rate/Area] 30 mL/min/{1.73_m2} Abnormal Comprehensiv e Internal Medicine Work Phone: GFR/1.73 sq M.predicted MDRD vol rate/area 30 mL/min/{1.73_m2} Abnormal Comprehensiv e Internal Medicine Work Phone: Glucose mass conc 165 mg/dL Abnormal 70-110 Compreh ensive Internal Medicine Work Phone: Comment on above: Fasting Glucose resu lt greater than or equal to 126 mg/dL suggests DIABETES MELLITUS per A.D.A. criteria. Potassium molar conc 4.7 mmol/L Normal 3.5-5.1 Comp rehensive Internal Medicine Work Phone: Sodium molar conc 137 mmol/L Normal 136-145 Compreh ensive Internal Medicine Work Phone: Urea nitrogen mass conc 30 mg/dL Abnormal 7-18 [facility] Work Phone: Urea nitrogen/Creatinine mass ratio 13.0 {RATIO} Normal 10-20 [facility] Work Phone: CBCMDOrdered By: Ramakrishna saleh on 06-30-2012 Eosinophils/100 WBC (Bld) 1 % Normal 0-5 [facility] Work Phone: Eosinophils/100 WBC Auto (Bld) 1 % Normal 0-5 [facility] Internal Medicine Work Phone: Hematocrit (Bld) [Volume fraction] 40.3 % Normal 40-54 [facility] Internal Medicine Work Phone: Hematocrit Auto Volume Fraction (Bld) 40.3 % Normal 40-54 Comprehens kevin Internal Medicine Work Phone: Hemoglobin mass conc (Bld) 13.3 g/dL Normal 13.0-16.5 [facility] Internal Medicine Work Phone: MCH (RBC) [Entitic mass] 29.0 pg Normal 27.0-32.0 [facility] Internal Medicine Work Phone: MCH Auto Entitic mass (RBC) 29.0 pg Normal 27.0-32.0 [facility] Internal Medicine Work Phone: MCHC (RBC) [Mass/Vol] 33.0 g/dL Normal 32-36 Com prehensive Internal Medicine Work Phone: MCHC Auto mass conc (RBC) 33.0 g/dL Normal 32-36 [facility] Internal Medicine Work Phone: MCV (RBC) [Entitic vol] 87.8 fL Normal 80-94 [facility] Internal Medicine Work Phone: MCV Auto Entitic volume (RBC) 87.8 fL Normal 80-94 [facility] Internal Medicine Work Phone: Neutrophils (Bld) [#/Vol] 3.0 3/uL Normal 2.0-7.7 [facility] Work Phone: Neutrophils Auto #/vol (Bld) 3.0 3/uL Normal 2.0-7.7 [facility] Work Phone: Platelets (Bld) [#/Vol] 118 10*3/uL Abnormal 150-450 [facility] Work Phone: Platelets Auto #/vol (Bld) 118 10*3/uL Abnormal 150-450 [facility] Work Phone: RBC (Bld) [#/Vol] 4.59 {M/mm3} Abnormal 4.6-6.2 Compr ensive Internal Medicine Work Phone: RBC Auto #/vol (Bld) 4.59 {M/mm3} Abnormal 4.6-6.2 Co mprehensive Internal Medicine Work Phone: WBC (Bld) [#/Vol] 5.3 {k/mm3} Normal 4.4-11.0 Compre [facility] Internal Medicine Work Phone: WBC Auto #/vol (Bld) 5.3 {k/mm3} Normal 4.4-11.0 Com [facility] Work Phone: CBCMD 100 1 Normal [facility] Work Phone: CBCMD 15.2 % Abnormal 11.6-14.6 [facility] Work Phone: CBCMD NORM C+C Normal [facility] Work Phone: CBCMD 48.5 fL Abnormal 35.1-43.9 [facility] Work Phone: CBCMD 10.7 fL Normal 6.2-12.0 [facility] Work Phone: CBCMD ADEQUATE Normal [facility] Work Phone: CBCMD 53 % Normal 47-70 [facility] Work Phone: CBCMD 2 % Normal 0-5 [facility] Work Phone: CBCMD 34 % Normal 19-41 [facility] Work Phone: CBCMD 10 % Normal 0-10 [facility] Work Phone: HgA1C , Office ([id number])Ordere d By: Bethany Bradford on 04-28-2012 Hemoglobin A1c/Hemoglobin.total mass fraction (Bld) 7.1 % Normal 4.6 - 7.1 Comprehensiv e Internal Medicine Work Phone: CBCMDOrdered By: Ramakrishna saleh on 04-21-2012 Eosinophils/100 WBC (Bld) 3 % Normal 0-5 [facility] Work Phone: Eosinophils/100 WBC Auto (Bld) 3 % Normal 0-5 [facility] Work Phone: Erythrocyte distribution width (RBC) [Ratio] 16.0 % Abnormal 11.6-14.6 [facility] Work Phone: Erythrocyte distribution width Auto Ratio (RBC) 16.0 % Abnormal 11.6-14.6 [facility] Work Phone: Hematocrit (Bld) [Volume fraction] 43.7 % Normal 40-54 [facility] Work Phone: Hematocrit Auto Volume Fraction (Bld) 43.7 % Normal 40-54 Comprehens kevin Internal Medicine Work Phone: Hemoglobin mass conc (Bld) 14.4 g.dL Normal 13.0-16.5 [facility] Work Phone: MCH (RBC) [Entitic mass] 30.1 pg Normal 27.0-32.0 [facility] Work Phone: MCH Auto Entitic mass (RBC) 30.1 pg Normal 27.0-32.0 [facility] Work Phone: MCHC (RBC) [Mass/Vol] 33.0 g/dL Normal 32-36 Com prehensive Internal Medicine Work Phone: MCHC Auto mass conc (RBC) 33.0 g/dL Normal 32-36 [facility] Work Phone: MCV (RBC) [Entitic vol] 91.0 fL Normal 80-94 [facility] Work Phone: MCV Auto Entitic volume (RBC) 91.0 fL Normal 80-94 [facility] Work Phone: Neutrophils (Bld) [#/Vol] 3.5 3/uL Normal 2.0-7.7 [facility] Work Phone: Neutrophils Auto #/vol (Bld) 3.5 3/uL Normal 2.0-7.7 [facility] Work Phone: Platelets (Bld) [#/Vol] 164 10*3/uL Normal 150-450 [facility] Work Phone: Platelets Auto #/vol (Bld) 164 10*3/uL Normal 150-450 [facility] Work Phone: RBC (Bld) [#/Vol] 4.80 {M/mm3} Normal 4.6-6.2 Compr ensive Internal Medicine Work Phone: RBC Auto #/vol (Bld) 4.80 {M/mm3} Normal 4.6-6.2 Co [facility] Work Phone: WBC (Bld) [#/Vol] 5.6 10*3/uL Normal 4.4-11.0 Compre [facility] Internal Medicine Work Phone: WBC Auto #/vol (Bld) 5.6 10*3/uL Normal 4.4-11.0 [facility] Work Phone: CBCMD 11 % Abnormal 0-10 [facility] Work Phone: CBCMD 1 % Normal 0-1 [facility] Work Phone: CBCMD ADEQUATE Normal [facility] Work Phone: CBCMD NORM C+C Normal [facility] Work Phone: CBCMD 100 1 Normal [facility] Work Phone: CBCMD 19 % Normal 19-41 [facility] Work Phone: CBCMD 66 % Normal 47-70 [facility] Work Phone: CMPOrdered By: System Manage r on 04-21-2012 Albumin mass conc 3.9 g/dL Normal 3.4-5.0 Compreh ensive [facility] Work Phone: Albumin/Globulin mass ratio 1.1 {RATIO} Normal 0.9-2.4 [facility] Internal Medicine Work Phone: ALP enzyme act/vol 49 U/L Abnormal 50-136 Compre [facility] Internal Medicine Work Phone: ALT enzyme act/vol 56 U/L Normal 12-78 [facility] Internal [facility] Work Phone: Anion gap 3 molar conc 9 mmol/L Normal 5-15 [facility] Work Phone: Anion gap [Moles/Vol] 9 mmol/L Normal 5-15 [facility] prehensive Internal Medicine Work Phone: AST enzyme act/vol 32 U/L Normal 15-37 Compre [facility] Internal Medicine Work Phone: Bilirubin mass conc 0.50 mg/dL Normal 0.00-1.00 Compr ensive [facility] Work Phone: Calcium mass conc 9.0 mg/dL Normal 8.5-10.1 Compreh ensive [facility] Work Phone: Chloride molar conc 103 mmol/L Normal 98-107 Compr ensive [facility] Medicine Work Phone: CO2 molar conc 28.0 mmol/L Normal 21.0-32.0 Comprehen [facility] Internal Medicine Work Phone: Creatinine mass conc 1.3 mg/dL Normal 0.8-1.3 [facility] Phone: GFR/1.73 sq M predicted among blacks MDRD vol rate/area (S/P/Bld) 72 mL/min/{1.73_m2} Normal Comprehe nsive Internal Medicine Work Phone: GFR/1.73 sq M.predicted MDRD (S/P/Bld) [Vol rate/Area] 59 mL/min/{1.73_m2} Abnormal Comprehensiv e [facility] Work Phone: GFR/1.73 sq M.predicted MDRD vol rate/area 59 mL/min/{1.73_m2} Abnormal Comprehensiv e [facility] Work Phone: Globulin (S) [Mass/Vol] 3.5 g/dL Normal 2.7-4.2 [facility] Work Phone: Globulin Calculated mass conc (S) 3.5 g/dL Normal 2.7-4.2 [facility] Work Phone: Glucose mass conc 132 mg/dL Abnormal 70-110 Compreh ensive [facility] Work Phone: Comment on above: Fasting Glucose resu lt greater than or equal to 126 mg/dL suggests DIABETES MELLITUS per A.D.A. criteria. Potassium molar conc 4.4 mmol/L Normal 3.5-5.1 Comp rehensive Internal Medicine Work Phone: Protein mass conc 7.4 g/dL Normal 6.4-8.2 Compreh ensive [facility] Work Phone: Sodium molar conc 140 mmol/L Normal 136-145 Compre[facility] ens[facility] Work Phone: Urea nitrogen mass conc 14 mg/dL Normal 7-18 [facility] Work Phone: Urea nitrogen/Creatinine mass ratio 10.8 {RATIO} Normal 10-20 [facility] Work Phone: LIPIDOrdered By: Ramakrishna saleh on 04-21-2012 Cholesterol in HDL mass conc 31 mg/dL Abnormal [facility] Work Phone: Comment on above: Reference Range HDL <40 mg/dL Low HDL Cholesterol HDL >or= 60 mg/dL High HDL Cholesterol Cholesterol in LDL mass conc 69 mg/dL Normal 0-130 [facility] Work Phone: Cholesterol in VLDL mass conc 49 mg/dL Abnormal 5-40 [facility] Work Phone: Cholesterol mass conc 149 mg/dL Normal Com prehensive [facility] Work Phone: Comment on above: <200 mg/dL Desirable 200-240 mg/dL Borderline >240 mg/dL High Risk Triglyceride mass conc 247 mg/dL Abnormal [facility] Work Phone: Comment on above: Serum Triglycerides Reference Interval Normal <150 mg/dL Borderline high 150 - 199 mg/dL High 200 - 499 mg/dL Very High > or = 500 mg/dL CBCMDOrdered By: Ramakrishna saleh on 01-24-2012 Eosinophils/100 WBC (Bld) 2 % Normal 0-5 [facility] Work Phone: Eosinophils/100 WBC Auto (Bld) 2 % Normal 0-5 [facility] Work Phone: Erythrocyte distribution width (RBC) [Ratio] 16.0 % Abnormal 11.6-14.6 [facility] Work Phone: Erythrocyte distribution width Auto Ratio (RBC) 16.0 % Abnormal 11.6-14.6 [facility] Work Phone: Hematocrit (Bld) [Volume fraction] 40.8 % Normal 40-54 [facility] Internal Medicine Work Phone: Hematocrit Auto Volume Fraction (Bld) 40.8 % Normal 40-54 Comprehens [facility] Work Phone: Hemoglobin mass conc (Bld) 13.8 g/dL Abnormal 14.0-18.0 [facility] Internal Medicine Work Phone: MCH (RBC) [Entitic mass] 30.2 pg Normal 27.0-32.0 [facility] Internal Medicine Work Phone: MCH Auto Entitic mass (RBC) 30.2 pg Normal 27.0-32.0 [facility] Internal [facility] Work Phone: MCHC (RBC) [Mass/Vol] 33.9 g/dL Normal 32-36 [facility] prehensive Internal Medicine Work Phone: MCHC Auto mass conc (RBC) 33.9 g/dL Normal 32-36 [facility] Internal [facility] Work Phone: MCV (RBC) [Entitic vol] 89.1 fL Normal 80-94 [facility] Work Phone: MCV Auto Entitic volume (RBC) 89.1 fL Normal 80-94 [facility] Internal Medicine Work Phone: Neutrophils (Bld) [#/Vol] 3.2 3/uL Normal 2.0-7.7 [facility] Work Phone: Neutrophils Auto #/vol (Bld) 3.2 3/uL Normal 2.0-7.7 [facility] Work Phone: Platelets (Bld) [#/Vol] 150 10*3/uL Normal 150-450 [facility] Work Phone: Platelets Auto #/vol (Bld) 150 10*3/uL Normal 150-450 [facility] Work Phone: RBC (Bld) [#/Vol] 4.58 {M/mm3} Abnormal 4.6-6.2 Compr ehensive [facility] Work Phone: RBC Auto #/vol (Bld) 4.58 {M/mm3} Abnormal 4.6-6.2 Co m[facility] Work Phone: WBC (Bld) [#/Vol] 5.5 10*3/uL Normal 4.4-11.0 [facility] Work Phone: WBC Auto #/vol (Bld) 5.5 10*3/uL Normal 4.4-11.0 Com prehensive [facility] Work Phone: CBCMD NORM C+C Normal [facility] Work Phone: CBCMD ADEQUATE Normal [facility] Work Phone: CBCMD 8 % Normal 0-10 [facility] Work Phone: CBCMD 20 % Normal 19-41 [facility] Work Phone: CBCMD 1 % Normal 0-5 [facility] Work Phone: CBCMD 69 % Normal 47-70 [facility] Work Phone: CBCMD 100 1 Normal [facility] Work Phone: CMPOrdered By: System Manage r on 01-24-2012 Albumin mass conc 3.8 g/dL Normal 3.4-5.0 Compreh ensive [facility] Work Phone: Albumin/Globulin mass ratio 1.1 {RATIO} Normal 0.9-2.4 [facility] Work Phone: ALP enzyme act/vol 43 U/L Abnormal 50-136 [facility] Work [facility]: ALT enzyme act/vol 46 U/L Normal 12-78 [facility] Work Phone: Anion gap 3 molar conc 8 mmol/L Normal 5-15 [facility] Work Phone: Anion gap [Moles/Vol] 8 mmol/L Normal 5-15 [facility] prehensive Internal Medicine Work Phone: AST enzyme act/vol 27 U/L Normal 15-37 [facility] Work Phone: Bilirubin mass conc 0.50 mg/dL Normal 0.00-1.00 Compr ensive [facility] Work Phone: Calcium mass conc 8.5 mg/dL Normal 8.5-10.1 [facility] Work Phone: Chloride molar conc 108 mmol/L Abnormal 98-107 Compr ensive [facility] Work Phone: CO2 molar conc 25.0 mmol/L Normal 21.0-32.0 [facility]hen [facility] Work Phone: Creatinine mass conc 1.2 mg/dL Normal 0.8-1.3 [facility] Phone: GFR/1.73 sq M predicted among blacks MDRD vol rate/area (S/P/Bld) 78 mL/min/{1.73_m2} Normal Comprehe nsive Internal Medicine Work Phone: GFR/1.73 sq M.predicted MDRD (S/P/Bld) [Vol rate/Area] 64 mL/min/{1.73_m2} Normal Comprehensiv e [facility] Work Phone: GFR/1.73 sq M.predicted MDRD vol rate/area 64 mL/min/{1.73_m2} Normal Comprehensiv e [facility] Work Phone: Globulin (S) [Mass/Vol] 3.4 g/dL Normal 2.7-4.2 [facility] Work Phone: Globulin Calculated mass conc (S) 3.4 g/dL Normal 2.7-4.2 [facility] Work Phone: Glucose mass conc 111 mg/dL Abnormal 70-110 Compreh ensive [facility] Work Phone: Comment on above: Fasting Glucose resu lt from 110 to <126 mg/dL suggests IMPAIRED HOMEOSTASIS per A.D.A. criteria. Potassium molar conc 4.4 mmol/L Normal 3.5-5.1 Comp rehensive [facility] Work Phone: Protein mass conc 7.2 g/dL Normal 6.4-8.2 Compreh ensive [facility] Work Phone: Sodium molar conc 141 mmol/L Normal 136-145 Compreh ensive [facility] Work Phone: Urea nitrogen mass conc 19 mg/dL Abnormal 7-18 [facility] Work Phone: Urea nitrogen/Creatinine mass ratio 15.8 {RATIO} Normal 10-20 [facility] Work Phone: HgA1C , Office ([phone])Ordere d By: Bethany Bradford on 01-07-2012 Hemoglobin A1c/Hemoglobin.total mass fraction (Bld) 6.9 % Normal 4.6 - 7.1 Comprehensiv e [facility] Work Phone: CBCMDOrdered By: Ramakrishna saleh on 12-31-2011 Eosinophils/100 WBC (Bld) 3 % Normal 0-5 [facility] Work Phone: Eosinophils/100 WBC Auto (Bld) 3 % Normal 0-5 [facility] Work Phone: Erythrocyte distribution width (RBC) [Ratio] 16.2 % Abnormal 11.6-14.6 [facility] Work Phone: Erythrocyte distribution width Auto Ratio (RBC) 16.2 % Abnormal 11.6-14.6 [facility] Work Phone: Hematocrit (Bld) [Volume fraction] 39.2 % Abnormal 40-54 [facility] Work Phone: Hematocrit Auto Volume Fraction (Bld) 39.2 % Abnormal 40-54 Comprehens [facility] Work Phone: Hemoglobin mass conc (Bld) 13.3 g/dL Abnormal 14.0-18.0 [facility] Work Phone: MCH (RBC) [Entitic mass] 29.9 pg Normal 27.0-32.0 [facility] Work Phone: MCH Auto Entitic mass (RBC) 29.9 pg Normal 27.0-32.0 [facility] Work Phone: MCHC (RBC) [Mass/Vol] 33.9 g/dL Normal 32-36 Com prehensive [facility] Work Phone: MCHC Auto mass conc (RBC) 33.9 g/dL Normal 32-36 [facility] Work Phone: MCV (RBC) [Entitic vol] 88.2 fL Normal 80-94 [facility] Work Phone: MCV Auto Entitic volume (RBC) 88.2 fL Normal 80-94 [facility] Work Phone: Neutrophils (Bld) [#/Vol] 3.3 3/uL Normal 2.0-7.7 [facility] Work Phone: Neutrophils Auto #/vol (Bld) 3.3 3/uL Normal 2.0-7.7 [facility] Work Phone: Platelets (Bld) [#/Vol] 146 10*3/uL Abnormal 150-450 [facility] Work Phone: Platelets Auto #/vol (Bld) 146 10*3/uL Abnormal 150-450 [facility] Work Phone: RBC (Bld) [#/Vol] 4.45 {M/mm3} Abnormal 4.6-6.2 Compr ehensive [facility] Work Phone: RBC Auto #/vol (Bld) 4.45 {M/mm3} Abnormal 4.6-6.2 Co mprehensive [facility] Work Phone: WBC (Bld) [#/Vol] 6.0 10*3/uL Normal 4.4-11.0 [facility] Work Phone: WBC Auto #/vol (Bld) 6.0 10*3/uL Normal 4.4-11.0 [facility] prehensive Internal Medicine Work Phone: CBCMD ADEQUATE Normal [facility] Work Phone: CBCMD NORM C+C Normal [facility] Work Phone: CBCMD 60 % Normal 47-70 [facility] Work Phone: CBCMD 100 1 Normal [facility] Work Phone: CBCMD 29 % Normal 19-41 [facility] Work Phone: CBCMD 8 % Normal 0-10 [facility] Work Phone: CMPOrdered By: System Manage r on 12-31-2011 Albumin mass conc 3.9 g/dL Normal 3.4-5.0 Compreh [facility] Internal Medicine Work Phone: Albumin/Globulin mass ratio 1.1 {RATIO} Normal 0.9-2.4 [facility] Internal Medicine Work Phone: ALP enzyme act/vol 54 U/L Normal 50-136 [facility] Internal Medicine Work Phone: ALT enzyme act/vol 39 U/L Normal 12-78 [facility] Internal Medicine Work Phone: Anion gap 3 molar conc 10 mmol/L Normal 5-15 [facility] Internal Medicine Work Phone: Anion gap [Moles/Vol] 10 mmol/L Normal 5-15 [facility] Work Phone: AST enzyme act/vol 30 U/L Normal 15-37 [facility] Internal Medicine Work Phone: Bilirubin mass conc 0.50 mg/dL Normal 0.00-1.00 [facility] Internal Medicine Work Phone: Calcium mass conc 8.1 mg/dL Abnormal 8.5-10.1 [facility] Internal Medicine Work Phone: Chloride molar conc 102 mmol/L Normal 98-107 Compr [facility] Internal Medicine Work Phone: CO2 molar conc 25.0 mmol/L Normal 21.0-32.0 Comprehen sive Internal Medicine Work Phone: Creatinine mass conc 1.5 mg/dL Abnormal 0.8-1.3 Comp rehensive [facility] Medicine Work Phone: GFR/1.73 sq M predicted among blacks MDRD vol rate/area (S/P/Bld) 61 mL/min/{1.73_m2} Normal Comprehe nsive [facility] Medicine Work Phone: GFR/1.73 sq M.predicted MDRD (S/P/Bld) [Vol rate/Area] 50 mL/min/{1.73_m2} Abnormal Comprehensiv e [facility] Work Phone: GFR/1.73 sq M.predicted MDRD vol rate/area 50 mL/min/{1.73_m2} Abnormal Comprehensiv e [facility] Work Phone: Globulin (S) [Mass/Vol] 3.4 g/dL Normal 2.7-4.2 [facility] Work Phone: Globulin Calculated mass conc (S) 3.4 g/dL Normal 2.7-4.2 [facility] Work Phone: Glucose mass conc 130 mg/dL Abnormal 70-110 Compreh ensive [facility] Work Phone: Comment on above: Fasting Glucose resu lt greater than or equal to 126 mg/dL suggests DIABETES MELLITUS per A.D.A. criteria. Potassium molar conc 3.9 mmol/L Normal 3.5-5.1 Comp rehensive [facility] Medicine Work Phone: Protein mass conc 7.3 g/dL Normal 6.4-8.2 Compreh ensive [facility] Work Phone: Sodium molar conc 137 mmol/L Normal 136-145 Compreh ensive [facility] Work Phone: Urea nitrogen mass conc 21 mg/dL Abnormal 7-18 [facility] Work Phone: Urea nitrogen/Creatinine mass ratio 14.0 {RATIO} Normal 10-20 [facility] Work Phone: LIPIDOrdered By: Ramakrishna saleh on 12-31-2011 Cholesterol in HDL mass conc 29 mg/dL Abnormal [facility] Work Phone: Comment on above: Reference Range HDL <40 mg/dL Low HDL Cholesterol HDL >or= 60 mg/dL High HDL Cholesterol Cholesterol in LDL mass conc 49 mg/dL Normal 0-130 [facility] Work Phone: Cholesterol in VLDL mass conc 59 mg/dL Abnormal 5-40 [facility] Work Phone: Cholesterol mass conc 137 mg/dL Normal Com prehensive [facility] Medicine Work Phone: Comment on above: <200 mg/dL Desirable 200-240 mg/dL Borderline >240 mg/dL High Risk Triglyceride mass conc 297 mg/dL Abnormal [facility] Work Phone: Comment on above: Serum Triglycerides Reference Interval Normal <150 mg/dL Borderline high 150 - 199 mg/dL High 200 - 499 mg/dL Very High > or = 500 mg/dL Blood Glucose , Office ([phone])Ordered By: Bethany Bradford on 09-10-2011 Glucose Glucometer molar conc (BldC) 133 1 Normal [facility] Work Phone: HgA1C , Office ([id number])Ordere d By: Bethany Bradford on 09-10-2011 Hemoglobin A1c/Hemoglobin.total mass fraction (Bld) 6.0 % Normal 4.6 - 7.1 Comprehensiv e [facility] Work Phone: CBCD,SMEAR DIFFOrdered By: Pedrito ystem Department Director on 08-30-2011 Eosinophils/100 WBC (Bld) 2 % Normal 0-5 [facility] Work Phone: Eosinophils/100 WBC Auto (Bld) 2 % Normal 0-5 [facility] Work Phone: Erythrocyte distribution width (RBC) [Ratio] 15.5 % Abnormal 11.6-14.6 [facility] Work Phone: Erythrocyte distribution width Auto Ratio (RBC) 15.5 % Abnormal 11.6-14.6 [facility] Work Phone: Hematocrit (Bld) [Volume fraction] 41.1 % Normal 40-54 [facility] Work Phone: Hematocrit Auto Volume Fraction (Bld) 41.1 % Normal 40-54 Comprehens [facility] Work Phone: Hemoglobin mass conc (Bld) 14.0 g/dL Normal 14.0-18.0 [facility] Work Phone: MCH (RBC) [Entitic mass] 30.1 pg Normal 27.0-32.0 [facility] Work Phone: MCH Auto Entitic mass (RBC) 30.1 pg Normal 27.0-32.0 [facility] Work Phone: MCHC (RBC) [Mass/Vol] 34.0 g/dL Normal 32-36 [facility] Internal Medicine Work Phone: MCHC Auto mass conc (RBC) 34.0 g/dL Normal 32-36 [facility] Internal Medicine Work Phone: MCV (RBC) [Entitic vol] 88.5 fL Normal 80-94 [facility] Work Phone: MCV Auto Entitic volume (RBC) 88.5 fL Normal 80-94 [facility] Internal Medicine Work Phone: Neutrophils (Bld) [#/Vol] 3.2 3/uL Normal 2.0-7.7 [facility] Work Phone: Neutrophils Auto #/vol (Bld) 3.2 3/uL Normal 2.0-7.7 [facility] Work Phone: Platelets (Bld) [#/Vol] 143 10*3/uL Abnormal 150-450 [facility] Work Phone: Platelets Auto #/vol (Bld) 143 10*3/uL Abnormal 150-450 [facility] Work Phone: RBC (Bld) [#/Vol] 4.65 {M/mm3} Normal 4.6-6.2 [facility] Work Phone: RBC Auto #/vol (Bld) 4.65 {M/mm3} Normal 4.6-6.2 Co mprehensive [facility] Work Phone: WBC (Bld) [#/Vol] 5.3 10*3/uL Normal 4.4-11.0 [facility] Internal Medicine Work Phone: WBC Auto #/vol (Bld) 5.3 10*3/uL Normal 4.4-11.0 [facility] Internal Medicine Work Phone: CBCD,SMEAR DIFF 100 1 [facility] Work Phone: CBCD,SMEAR DIFF 69 % Normal 47-70 [facility] Work Phone: CBCD,SMEAR DIFF 27 % Normal 19-41 [facility] Internal Medicine Work Phone: CBCD,SMEAR DIFF 2 % Normal 0-10 [facility] Internal Medicine Work Phone: COMP METABOLICOrdered By: Aaron stem Department Director on 08-30-2011 Albumin mass conc 4.0 g/dL Normal 3.4-5.0 [facility] Internal Medicine Work Phone: Albumin/Globulin mass ratio 1.1 {RATIO} Normal 0.9-2.4 [facility] Internal Medicine Work Phone: ALP enzyme act/vol 38 U/L Abnormal 50-136 [facility] Internal Medicine Work Phone: ALT enzyme act/vol 43 U/L Normal 12-78 [facility] Internal Medicine Work Phone: Anion gap 3 molar conc 7 mmol/L Normal 5-15 [facility] Internal Medicine Work Phone: Anion gap [Moles/Vol] 7 mmol/L Normal 5-15 [facility] Internal Medicine Work Phone: AST enzyme act/vol 21 U/L Normal 15-37 [facility] Internal Medicine Work Phone: Bilirubin mass conc 0.60 mg/dL Normal 0.00-1.00 [facility] Internal Medicine Work Phone: Calcium mass conc 8.7 mg/dL Normal 8.5-10.1 [facility] Internal Medicine Work Phone: Chloride molar conc 105 mmol/L Normal 98-107 Compr ehensive Internal Medicine Work Phone: CO2 molar conc 27.0 mmol/L Normal 21.0-32.0 Comprehen sive Internal Medicine Work Phone: Creatinine mass conc 1.2 mg/dL Normal 0.8-1.3 Comp rehensive Internal Medicine Work Phone: GFR/1.73 sq M predicted among blacks MDRD vol rate/area (S/P/Bld) 78 mL/min/{1.73_m2} Normal Comprehe nsive Internal Medicine Work Phone: GFR/1.73 sq M.predicted MDRD (S/P/Bld) [Vol rate/Area] 64 mL/min/{1.73_m2} Normal Comprehensiv e Internal Medicine Work Phone: GFR/1.73 sq M.predicted MDRD vol rate/area 64 mL/min/{1.73_m2} Normal Comprehensiv e [facility] Medicine Work Phone: Globulin (S) [Mass/Vol] 3.5 g/dL Normal 2.7-4.2 [facility] Work Phone: Globulin Calculated mass conc (S) 3.5 g/dL Normal 2.7-4.2 [facility] Work Phone: Glucose mass conc 117 mg/dL Abnormal 70-110 Compreh ensive Internal Medicine Work Phone: Comment on above: Fasting Glucose resu lt from 110 to <126 mg/dL suggests IMPAIRED HOMEOSTASIS per A.D.A. criteria. Potassium molar conc 4.2 mmol/L Normal 3.5-5.1 Comp rehensive Internal Medicine Work Phone: Protein mass conc 7.5 g/dL Normal 6.4-8.2 Compreh ensive Internal Medicine Work Phone: Sodium molar conc 139 mmol/L Normal 136-145 Compreh ensive [facility] Medicine Work Phone: Urea nitrogen mass conc 19 mg/dL Abnormal 7-18 [facility] Work Phone: Urea nitrogen/Creatinine mass ratio 15.8 {RATIO} Normal 10-20 [facility] Work Phone: LIPIDOrdered By: Ramakrishna saleh on 08-30-2011 Cholesterol in HDL mass conc 31 mg/dL Abnormal [facility] Work Phone: Comment on above: Reference Range HDL <40 mg/dL Low HDL Cholesterol HDL >or= 60 mg/dL High HDL Cholesterol Cholesterol in LDL mass conc 46 mg/dL Normal 0-130 [facility] Work Phone: Cholesterol in VLDL mass conc 43 mg/dL Abnormal 5-40 [facility] Work Phone: Cholesterol mass conc 120 mg/dL Normal Com prehensive Internal Medicine Work Phone: Comment on above: <200 mg/dL Desirable 200-240 mg/dL Borderline >240 mg/dL High Risk Triglyceride mass conc 217 mg/dL Abnormal [facility] Work Phone: Comment on above: Serum Triglycerides Reference Interval Normal <150 mg/dL Borderline high 150 - 199 mg/dL High 200 - 499 mg/dL Very High > or = 500 mg/dL MICROALBOrdered By: Ramakrishna waters on 08-30-2011 MICROALB 107.0 mg/dL Normal [facility] Work Phone: MICROALB 23.2 mg/L Normal [facility] Work Phone: MICROALB 21.6 {mg/g_CRE} Normal [facility] Internal [facility] Work Phone: PSA, SCREENOrdered By: Lily alvares Department Director on 08-30-2011 Prostate specific Ag mass conc 4.6 ng/mL Abnormal 0.0-4.0 [facility] Work Phone: ROUTINE UAOrdered By: Grid Operator on 08-30-2011 ROUTINE UA 1.025 1 Normal 1.002-1.03 0 [facility] Work Phone: ROUTINE UA SeeNote Normal [facility] Work Phone: Comment on above: Result: NEGATIVE PROCEDURE: THYROID U LTRASOUND REASON FOR EXAM: Male, 66 years old. Non toxic thyroid goiter TECHNIQUE: Ultrasound evaluation of the thyroid was performed withreal-time ultrasonography and static grayscale imaging. COMPARISON: None. FINDINGS: RIGHT LOBE: Normal size of the right lobe of the thyroid. The rightlobeof the thyroid gland measures 5.6 x 1.7 x 2 cm. There is a heterogeneousechotexture with normal echogenicity. In the right upper pole there is a6-mm hypoechoic nodule with an adjacent 4 mm hypoechoic nodule. In rightmidpole there is a 1 cm hypoechoic nodule.LEFT LOBE: Normal size of the left lobe of the thyroid. The left lobeofthe thyroid gland measures 4.5 x 1.9 x 1.7 cm. There is a heterogeneousechotexture with normal echogenicity. In the lower pole there is a oneby0.8 x 0.7-cm hypoechoic nodule ISTHMUS: The isthmus measures 3.2 mm. IMPRESSION:Mildly heterogeneous thyroid gland with multiple small nodules asdiscussedabove To consult with a radiologist regarding this report, please call our [id number] line @ Dictated on 08/30/11 0854 by PETROS GUTIERREZ MDTranscribed on 08/31/11 0507 by ITS IMPORTSign by PETROS GUTIERREZ MD on 08/31/11 0508 Sign by: PETROS GUTIERREZ MD Result: ADEQUATE Result: NORM C+C ROUTINE UA 5.5 1 Normal 5.0-8.0 [facility] Work Phone: ROUTINE UA CLEAR Normal [facility] Work Phone: ROUTINE UA YELLOW Normal [facility] Work Phone: ROUTINE UA 0.2 EU/dl Normal 0.2 - 1.0 [facility] Work Phone: TSHOrdered By: System Manage r on 08-30-2011 Thyrotropin Qn 1.14 {uIU/mL} Normal 0.358-3.74 Compreh ensive Internal Medicine Work Phone: Blood Glucose , Office ([phone])Ordered By: Bethany Bradford on 07-31-2010 Glucose Glucometer molar conc (BldC) 119 1 Normal [facility] Work Phone: HgA1C , Office ([phone])Ordere d By: Bethany Bradford on 07-31-2010 Hemoglobin A1c/Hemoglobin.total mass fraction (Bld) 5.9 % Normal 4.6 - 7.1 [facility]prehens[facility] e [facility] Work Phone: COMP METABOLICOrdered By: Aaron stem Department Director on 06-21-2010 Albumin mass conc 3.9 g/dL Normal 3.4-5.0 Compreh ensive Internal Medicine Work Phone: Albumin/Globulin mass ratio 1.1 {RATIO} Normal 0.9-2.4 [facility] Work Phone: ALP enzyme act/vol 43 U/L Abnormal 50-136 [facility] Work Phone: ALT enzyme act/vol 31 U/L Normal 12-78 Compre [facility] Internal Medicine Work Phone: Anion gap 3 molar conc 10 mmol/L Normal 5-15 [facility] Work Phone: Anion gap [Moles/Vol] 10 mmol/L Normal 5-15 Com prehensive Internal Medicine Work Phone: AST enzyme act/vol 20 U/L Normal 15-37 [facility] Work Phone: Bilirubin mass conc 0.60 mg/dL Normal 0.00-1.00 Compr ehensive Internal Medicine Work Phone: Calcium mass conc 8.9 mg/dL Normal 8.5-10.1 Compreh ensive Internal Medicine Work Phone: Chloride molar conc 103 mmol/L Normal 98-107 Compr ehensive Internal Medicine Work Phone: CO2 molar conc 25.0 mmol/L Normal 21.0-32.0 [facility] Work Phone: Creatinine mass conc 1.2 mg/dL Normal 0.8-1.3 Comp rehensive Internal Medicine Work Phone: GFR/1.73 sq M predicted among blacks MDRD vol rate/area (S/P/Bld) 79 mL/min/{1.73_m2} Normal Comprehe nsive Internal Medicine Work Phone: GFR/1.73 sq M.predicted MDRD (S/P/Bld) [Vol rate/Area] 65 mL/min/{1.73_m2} Normal Comprehensiv e [facility] Medicine Work Phone: GFR/1.73 sq M.predicted MDRD vol rate/area 65 mL/min/{1.73_m2} Normal Comprehensiv e [facility] Medicine Work Phone: Globulin (S) [Mass/Vol] 3.7 g/dL Normal 2.7-4.2 [facility] Work Phone: Globulin Calculated mass conc (S) 3.7 g/dL Normal 2.7-4.2 [facility] Work Phone: Glucose mass conc 100 mg/dL Normal 70-110 Compreh ensive Internal Medicine Work Phone: Potassium molar conc 4.2 mmol/L Normal 3.5-5.1 Comp rehensive Internal Medicine Work Phone: Protein mass conc 7.6 g/dL Normal 6.4-8.2 Compreh ensive [facility] Medicine Work Phone: Sodium molar conc 138 mmol/L Normal 136-145 Compreh ensive Internal Medicine Work Phone: Urea nitrogen mass conc 22 mg/dL Abnormal 7-18 [facility] Work Phone: Urea nitrogen/Creatinine mass ratio 18.3 {RATIO} Normal 10-20 [facility] Work Phone: LIPIDOrdered By: Ramakrishna saleh on 06-21-2010 Cholesterol in HDL mass conc 35 mg/dL Abnormal [facility] Work Phone: Comment on above: Reference Range HDL <40 mg/dL Low HDL Cholesterol HDL >or= 60 mg/dL High HDL Cholesterol Cholesterol in LDL mass conc 54 mg/dL Normal 0-130 [facility] Work Phone: Cholesterol in VLDL mass conc 28 mg/dL Normal 5-40 [facility] Work Phone: Cholesterol mass conc 117 mg/dL Normal Com prehensive Internal Medicine Work Phone: Comment on above: <200 mg/dL Desirable 200-240 mg/dL Borderline >240 mg/dL High Risk Triglyceride mass conc 138 mg/dL Normal [facility] Work Phone: Comment on above: Serum Triglycerides Reference Interval Normal <150 mg/dL Borderline high 150 - 199 mg/dL High 200 - 499 mg/dL Very High > or = 500 mg/dL TSHOrdered By: System Manage r on 06-21-2010 Thyrotropin Qn 1.25 {uIU/mL} Normal 0.358-3.74 Compreh ensive Internal Medicine Work Phone: Blood Glucose , Office ([phone])Ordered By: Bethany Bradford on 02-23-2010 Glucose Glucometer molar conc (BldC) 115 1 Normal [facility] Work Phone: HgA1C , Office ([phone])Ordere d By: Bethany Bradford on 02-23-2010 Hemoglobin A1c/Hemoglobin.total mass fraction (Bld) 6.3 % Normal 4.6 - 7.1 Comprehens[facility] e [facility] Medicine Work Phone: COMP METABOLICOrdered By: Sy stem Department Director on 02-13-2010 Albumin mass conc 3.9 g/dL Normal 3.4-5.0 Compreh ensive Internal Medicine Work Phone: Albumin/Globulin mass ratio 1.0 {RATIO} Normal 0.9-2.4 [facility] Work Phone: ALP enzyme act/vol 55 U/L Normal 50-136 Compre [facility] Internal Medicine Work Phone: ALT enzyme act/vol 35 U/L Normal 12-78 Compre hensive Internal Medicine Work Phone: Anion gap 3 molar conc 7 mmol/L Normal 5-15 [facility] Work Phone: Anion gap [Moles/Vol] 7 mmol/L Normal 5-15 Com prehensive Internal Medicine Work Phone: AST enzyme act/vol 18 U/L Normal 15-37 Compre [facility] Internal Medicine Work Phone: Bilirubin mass conc 0.50 mg/dL Normal 0.00-1.00 Compr ehensive Internal Medicine Work Phone: Calcium mass conc 8.8 mg/dL Normal 8.5-10.1 Compreh ensive Internal Medicine Work Phone: Chloride molar conc 103 mmol/L Normal 98-107 Compr ehensive Internal Medicine Work Phone: CO2 molar conc 26.0 mmol/L Normal 21.0-32.0 Comprehen sive Internal Medicine Work Phone: Creatinine mass conc 1.2 mg/dL Normal 0.8-1.3 Comp rehensive Internal Medicine Work Phone: GFR/1.73 sq M predicted among blacks MDRD vol rate/area (S/P/Bld) 79 mL/min/{1.73_m2} Normal Comprehe nsive Internal Medicine Work Phone: GFR/1.73 sq M.predicted MDRD (S/P/Bld) [Vol rate/Area] 65 mL/min/{1.73_m2} Normal Comprehensiv e Internal Medicine Work Phone: GFR/1.73 sq M.predicted MDRD vol rate/area 65 mL/min/{1.73_m2} Normal Comprehensiv e [facility] Medicine Work Phone: Globulin (S) [Mass/Vol] 3.8 g/dL Normal 2.7-4.2 [facility] Work Phone: Globulin Calculated mass conc (S) 3.8 g/dL Normal 2.7-4.2 [facility] Work Phone: Glucose mass conc 97 mg/dL Normal 70-110 Compreh ensive Internal Medicine Work Phone: Potassium molar conc 3.9 mmol/L Normal 3.5-5.1 Comp rehensive Internal Medicine Work Phone: Protein mass conc 7.7 g/dL Normal 6.4-8.2 Compreh ensive Internal Medicine Work Phone: Sodium molar conc 136 mmol/L Normal 136-145 Compreh ensive Internal Medicine Work Phone: Urea nitrogen mass conc 20 mg/dL Abnormal 7-18 [facility] Work Phone: Urea nitrogen/Creatinine mass ratio 16.7 {RATIO} Normal 10-20 [facility] Work Phone: D BILIOrdered By: System Man ager on 02-13-2010 D BILI 0.12 mg/dL Normal 0.00-0.30 [facility] Work Phone: LIPIDOrdered By: System Gerda delfino on 02-13-2010 Cholesterol in HDL mass conc 47 mg/dL Normal [facility] Work Phone: Comment on above: Reference RangeHDL < 40 mg/dL Low HDL CholesterolHDL >or= 60 mg/dL High HDL Cholesterol Cholesterol in LDL mass conc 101 mg/dL Normal 0-130 [facility] Work Phone: Cholesterol in VLDL mass conc 30 mg/dL Normal 5-40 [facility] Work Phone: Cholesterol mass conc 178 mg/dL Normal Com prehensive Internal Medicine Work Phone: Comment on above: <200 mg/dL Desirable 200-240 mg/dL Borderline>240 mg/dL High Risk Triglyceride mass conc 149 mg/dL Normal [facility] Work Phone: Comment on above: Serum Triglycerides Reference IntervalNormal <150 mg/dLBorderline high 150 - 199 mg/dLHigh 200 - 499 mg/dLVery High > or = 500 mg/dL MICROALBOrdered By: Ramakrishna waters on 02-13-2010 MICROALB 17.8 {mg/g_CRE} [facility] Internal [facility] Work Phone: MICROALB 29.2 mg/L Normal [facility] Work Phone: MICROALB 164.0 mg/dL Normal [facility] Work Phone: Blood Glucose , Office ([phone])Ordered By: Tabby Terrell on 11-24-2009 Glucose Glucometer molar conc (BldC) 127 1 Normal [facility] Work Phone: HgA1C , Office ([phone])Ordere d By: Lola Lara on 11-24-2009 Hemoglobin A1c/Hemoglobin.total mass fraction (Bld) 7.1 % Normal 4.6 - 7.1 Comprehensiv e [facility] Work Phone: CBCD,SMEAR DIFFOrdered By: Pedrito astuidllo Department Director on 11-17-2009 Eosinophils/100 WBC (Bld) 2 % Normal 0-5 [facility] Work Phone: Eosinophils/100 WBC Auto (Bld) 2 % Normal 0-5 [facility] Work Phone: Erythrocyte distribution width (RBC) [Ratio] 15.5 % Abnormal 11.6-14.6 [facility] Work Phone: Erythrocyte distribution width Auto Ratio (RBC) 15.5 % Abnormal 11.6-14.6 [facility] Work Phone: Hematocrit (Bld) [Volume fraction] 43.1 % Normal 40-54 [facility] Work Phone: Hematocrit Auto Volume Fraction (Bld) 43.1 % Normal 40-54 Comprehens [facility] Internal Medicine Work Phone: Hemoglobin mass conc (Bld) 14.7 g/dL Normal 14.0-18.0 [facility] Work Phone: MCH (RBC) [Entitic mass] 29.5 pg Normal 27.0-32.0 [facility] Work Phone: MCH Auto Entitic mass (RBC) 29.5 pg Normal 27.0-32.0 [facility] Work Phone: MCHC (RBC) [Mass/Vol] 34.1 g/dL Normal 32-36 [facility] prehensive Internal Medicine Work Phone: MCHC Auto mass conc (RBC) 34.1 g/dL Normal 32-36 [facility] Internal Medicine Work Phone: MCV (RBC) [Entitic vol] 86.7 fL Normal 80-94 [facility] Work Phone: MCV Auto Entitic volume (RBC) 86.7 fL Normal 80-94 [facility] Internal Medicine Work Phone: Neutrophils (Bld) [#/Vol] 2.8 3/uL Normal 2.0-7.7 [facility] Internal Medicine Work Phone: Neutrophils Auto #/vol (Bld) 2.8 3/uL Normal 2.0-7.7 [facility] Internal Medicine Work Phone: Platelets (Bld) [#/Vol] 150 10*3/uL Normal 150-450 [facility] Internal Medicine Work Phone: Platelets Auto #/vol (Bld) 150 10*3/uL Normal 150-450 [facility] Internal Medicine Work Phone: RBC (Bld) [#/Vol] 4.97 {M/mm3} Normal 4.6-6.2 [facility]pr [facility] Internal Medicine Work Phone: RBC Auto #/vol (Bld) 4.97 {M/mm3} Normal 4.6-6.2 Co [facility] [place] Internal Medicine Work Phone: WBC (Bld) [#/Vol] 4.8 10*3/uL Normal 4.4-11.0 [facility] Work Phone: WBC Auto #/vol (Bld) 4.8 10*3/uL Normal 4.4-11.0 [facility] Internal Medicine Work Phone: CBCD,SMEAR DIFF 1 % Normal 0-1 [facility] Internal Medicine Work Phone: CBCD,SMEAR DIFF 100 1 Normal [facility] Work Phone: CBCD,SMEAR DIFF 35 % Normal 19-41 [facility] Work Phone: CBCD,SMEAR DIFF 3 % Normal 0-10 [facility] Internal Medicine Work Phone: CBCD,SMEAR DIFF 59 % Normal 47-70 [facility] Internal Medicine Work Phone: COMP METABOLICOrdered By: Aaron stem Department Director on 11-17-2009 Albumin mass conc 3.9 g/dL Normal 3.4-5.0 Compreh [facility] Internal Medicine Work Phone: Albumin/Globulin mass ratio 1.1 {RATIO} Normal 0.9-2.4 [facility] Internal Medicine Work Phone: ALP enzyme act/vol 52 U/L Normal 50-136 [facility] Work Phone: ALT enzyme act/vol 59 U/L Normal 12-78 [facility] Work Phone: Anion gap 3 molar conc 13 mmol/L Normal 5-15 [facility] Work Phone: Anion gap [Moles/Vol] 13 mmol/L Normal 5-15 Com prehensive Internal Medicine Work Phone: AST enzyme act/vol 33 U/L Normal 15-37 [facility] Work Phone: Bilirubin mass conc 0.60 mg/dL Normal 0.00-1.00 Compr ensive Internal Medicine Work Phone: Calcium mass conc 8.6 mg/dL Normal 8.5-10.1 Compreh ensive Internal Medicine Work Phone: Chloride molar conc 100 mmol/L Normal 98-107 Compr ensive Internal Medicine Work Phone: CO2 molar conc 24.0 mmol/L Normal 21.0-32.0 [facility] Work Phone: Creatinine mass conc 1.3 mg/dL Normal 0.8-1.3 [facility] Phone: GFR/1.73 sq M predicted among blacks MDRD vol rate/area (S/P/Bld) 72 mL/min/{1.73_m2} Normal Comprehe nsive Internal Medicine Work Phone: GFR/1.73 sq M.predicted MDRD (S/P/Bld) [Vol rate/Area] 59 mL/min/{1.73_m2} Abnormal Comprehensiv e Internal Medicine Work Phone: GFR/1.73 sq M.predicted MDRD vol rate/area 59 mL/min/{1.73_m2} Abnormal Comprehensiv e Internal Medicine Work Phone: Globulin (S) [Mass/Vol] 3.6 g/dL Normal 2.7-4.2 [facility] Work Phone: Globulin Calculated mass conc (S) 3.6 g/dL Normal 2.7-4.2 [facility] Work Phone: Glucose mass conc 125 mg/dL Abnormal 70-110 Compreh ensive Internal Medicine Work Phone: Comment on above: Fasting Glucose resu lt from 110 to <126 mg/dLsuggests IMPAIRED HOMEOSTASIS per A.D.A. criteria. Potassium molar conc 4.1 mmol/L Normal 3.5-5.1 Comp rehensive Internal Medicine Work Phone: Protein mass conc 7.5 g/dL Normal 6.4-8.2 Compreh ensive Internal Medicine Work Phone: Sodium molar conc 137 mmol/L Normal 136-145 Compreh ensive Internal Medicine Work Phone: Urea nitrogen mass conc 22 mg/dL Abnormal 7-18 [facility] Work Phone: Urea nitrogen/Creatinine mass ratio 16.9 {RATIO} Normal 10-20 [facility] Work Phone: COMPLETE UAOrdered By: Lily alvares Department Director on 11-17-2009 COMPLETE UA SeeNote Normal [facility] Work Phone: Comment on above: Result: NEGATIVE Result: ADEQUATE Result: NORM C+C COMPLETE UA 0 SEEN Normal 0-5 [facility] Work Phone: COMPLETE UA 0.2 EU/dl Normal 0.2 - 1.0 [facility] Work Phone: COMPLETE UA 5.0 1 Normal 5.0-8.0 [facility] Work Phone: COMPLETE UA YELLOW Normal [facility] Work Phone: COMPLETE UA CLEAR Normal [facility] Work Phone: COMPLETE UA >=1.030 Normal 1.002-1.03 0 [facility] Work Phone: D BILIOrdered By: System Man ager on 11-17-2009 D BILI 0.16 mg/dL Normal 0.00-0.30 [facility] Work Phone: LIPIDOrdered By: Ramakrishna saleh on 11-17-2009 Cholesterol in HDL mass conc 33 mg/dL Abnormal [facility] Work Phone: Comment on above: Reference RangeHDL < 40 mg/dL Low HDL CholesterolHDL >or= 60 mg/dL High HDL Cholesterol Cholesterol in LDL mass conc 48 mg/dL Normal 0-130 [facility] Work Phone: Cholesterol in VLDL mass conc 41 mg/dL Abnormal 5-40 [facility] Work Phone: Cholesterol mass conc 122 mg/dL Normal Com prehensive Internal Medicine Work Phone: Comment on above: <200 mg/dL Desirable 200-240 mg/dL Borderline>240 mg/dL High Risk Triglyceride mass conc 207 mg/dL Abnormal [facility] Work Phone: Comment on above: Serum Triglycerides Reference IntervalNormal <150 mg/dLBorderline high 150 - 199 mg/dLHigh 200 - 499 mg/dLVery High > or = 500 mg/dL PSA, SCREENOrdered By: Syste m Department Director on 11-17-2009 Prostate specific Ag mass conc 2.6 ng/mL Normal 0.0-4.0 [facility] Work Phone: Blood Glucose , Office ([phone])Ordered By: Bethany Bradford on 08-01-2009 Glucose Glucometer molar conc (BldC) 135 1 Normal [facility] Work Phone: HgA1C , Office ([phone])Ordere d By: Bethany Bradford on 08-01-2009 Hemoglobin A1c/Hemoglobin.total mass fraction (Bld) 6.9 % Normal 4.6 - 7.1 Comprehensiv e Internal Medicine Work Phone: COMP METABOLICOrdered By: Sy stem Department Director on 07-21-2009 Albumin mass conc 3.9 g/dL Normal 3.4-5.0 Compreh ensive Internal Medicine Work Phone: Albumin/Globulin mass ratio 1.1 {RATIO} Normal 0.9-2.4 [facility] Work Phone: ALP enzyme act/vol 50 U/L Normal 50-136 Compre hensive Internal Medicine Work Phone: ALT enzyme act/vol 54 U/L Normal 12-78 [facility] Work Phone: Anion gap 3 molar conc 11 mmol/L Normal 5-15 [facility] Work Phone: Anion gap [Moles/Vol] 11 mmol/L Normal 5-15 [facility] prehensive Internal Medicine Work Phone: AST enzyme act/vol 29 U/L Normal 15-37 [facility] Work Phone: Bilirubin mass conc 0.60 mg/dL Normal 0.00-1.00 Compr ehensive Internal Medicine Work Phone: Calcium mass conc 8.6 mg/dL Normal 8.5-10.1 Compreh ensive Internal Medicine Work Phone: Chloride molar conc 100 mmol/L Normal 98-107 Compr ensive Internal Medicine Work Phone: CO2 molar conc 27.0 mmol/L Normal 21.0-32.0 [facility] Work Phone: Creatinine mass conc 1.3 mg/dL Normal 0.8-1.3 [facility] Work Phone: GFR/1.73 sq M predicted among blacks MDRD vol rate/area (S/P/Bld) 72 mL/min/{1.73_m2} Normal Comprehe nsive Internal Medicine Work Phone: GFR/1.73 sq M.predicted MDRD (S/P/Bld) [Vol rate/Area] 59 mL/min/{1.73_m2} Abnormal Comprehensiv e Internal Medicine Work Phone: GFR/1.73 sq M.predicted MDRD vol rate/area 59 mL/min/{1.73_m2} Abnormal Comprehensiv e Internal Medicine Work Phone: Globulin (S) [Mass/Vol] 3.6 g/dL Normal 2.7-4.2 [facility] Internal Medicine Work Phone: Globulin Calculated mass conc (S) 3.6 g/dL Normal 2.7-4.2 [facility] Work Phone: Glucose mass conc 132 mg/dL Abnormal 70-110 Compreh ensive Internal Medicine Work Phone: Comment on above: Fasting Glucose resu lt greater than or equal to 126 mg/dLsuggests DIABETES MELLITUS per A.D.A. criteria. Potassium molar conc 4.2 mmol/L Normal 3.5-5.1 Comp rehensive Internal Medicine Work Phone: Protein mass conc 7.5 g/dL Normal 6.4-8.2 Compreh ensive Internal Medicine Work Phone: Sodium molar conc 138 mmol/L Normal 136-145 Compreh ensive Internal Medicine Work Phone: Urea nitrogen mass conc 21 mg/dL Abnormal 7-18 [facility] Work Phone: Urea nitrogen/Creatinine mass ratio 16.2 {RATIO} Normal 10-20 [facility] Work Phone: LIPIDOrdered By: Ramakrishna saleh on 07-21-2009 Cholesterol in HDL mass conc 35 mg/dL Normal [facility] Work Phone: Comment on above: Reference RangeHDL < 40 mg/dL Low HDL CholesterolHDL >or= 60 mg/dL High HDL Cholesterol Cholesterol in LDL mass conc 51 mg/dL Normal 0-130 [facility] Work Phone: Cholesterol in VLDL mass conc 50 mg/dL Abnormal 5-40 [facility] Work Phone: Cholesterol mass conc 136 mg/dL Normal Com prehensive Internal Medicine Work Phone: Comment on above: <200 mg/dL Desirable 200-240 mg/dL Borderline>240 mg/dL High Risk Triglyceride mass conc 252 mg/dL Abnormal [facility] Work Phone: Comment on above: Serum Triglycerides Reference IntervalNormal <150 mg/dLBorderline high 150 - 199 mg/dLHigh 200 - 499 mg/dLVery High > or = 500 mg/dL THYROIDOrdered By: Ramakrishna nava on 06-20-2009 THYROID See Note Normal [facility] Work Phone: Comment on above: Exam Number: [id number] CLINICAL:Nodules and goiter ULTRASOUND THYROID COMPARISON:12/02/2008. FINDINGS:The right thyroid gland measures 4.4 x 1.6 by 1.9 cm in length. There are two nodules involving the right thyroid gland. Involving the mid pole of right thyroid gland there is a nodule that measures 4.0 x 3.0x 4.0mm. involving the upper pole of right thyroid gland, there is a nodule that measures 8.6 x 10.0 x 6.0mm. The left thyroid gland measures 4.4 x 2.1 x 1.5 cm in length. Involving the lower pole of left thyroid gland, there is a nodule that measures 6.0 by 7.5 x 6 .0 mm. This has slightly increased in size. The thyroid isthmus measures 3.5 mm There is no perithyroid pathology.There is plaque involving the left carotid artery. IMPRESSION:Since the last exam, although the nodule involving the left lobe has slightly increased in size. Overall, no significant change. Reported By: DEVI GRACE M.D. Blood Glucose , Office ([phone])Ordered By: Bethany Bradford on 04-07-2009 Glucose Glucometer molar conc (BldC) 118 1 Normal [facility] Work Phone: HgA1C , Office ([phone])Ordere d By: Bethany Bradford on 04-07-2009 Hemoglobin A1c/Hemoglobin.total mass fraction (Bld) 6.2 % Normal 4.6 - 7.1 Comprehensiv e Internal Medicine Work Phone: CBCD,SMEAR DIFFOrdered By: Pedrito ystem Department Director on 03-31-2009 Eosinophils/100 WBC (Bld) 2 % Normal 0-5 [facility] Work Phone: Eosinophils/100 WBC Auto (Bld) 2 % Normal 0-5 [facility] Work Phone: Erythrocyte distribution width (RBC) [Ratio] 15.3 % Abnormal 11.6-14.6 [facility] Work Phone: Erythrocyte distribution width Auto Ratio (RBC) 15.3 % Abnormal 11.6-14.6 [facility] Work Phone: Hematocrit (Bld) [Volume fraction] 41.9 % Normal 40-54 [facility] Work Phone: Hematocrit Auto Volume Fraction (Bld) 41.9 % Normal 40-54 Comprehens [facility] Internal Medicine Work Phone: Hemoglobin mass conc (Bld) 14.1 g/dL Normal 14.0-18.0 [facility] Internal Medicine Work Phone: MCH (RBC) [Entitic mass] 29.8 pg Normal 27.0-32.0 [facility] Work Phone: MCH Auto Entitic mass (RBC) 29.8 pg Normal 27.0-32.0 [facility] Internal Medicine Work Phone: MCHC (RBC) [Mass/Vol] 33.7 g/dL Normal 32-36 [facility] prehensive Internal Medicine Work Phone: MCHC Auto mass conc (RBC) 33.7 g/dL Normal 32-36 [facility] Internal Medicine Work Phone: MCV (RBC) [Entitic vol] 88.5 fL Normal 80-94 [facility] Work Phone: MCV Auto Entitic volume (RBC) 88.5 fL Normal 80-94 [facility] Internal Medicine Work Phone: Platelets (Bld) [#/Vol] 158 10*3/uL Normal 150-450 [facility] Internal Medicine Work Phone: Platelets Auto #/vol (Bld) 158 10*3/uL Normal 150-450 [facility] Internal Medicine Work Phone: RBC (Bld) [#/Vol] 4.74 {M/mm3} Normal 4.6-6.2 Compr ensive Internal Medicine Work Phone: RBC Auto #/vol (Bld) 4.74 {M/mm3} Normal 4.6-6.2 [facility] Work Phone: WBC (Bld) [#/Vol] 5.6 10*3/uL Normal 4.4-11.0 Compre hensive Internal Medicine Work Phone: WBC Auto #/vol (Bld) 5.6 10*3/uL Normal 4.4-11.0 [facility] Work Phone: CBCD,SMEAR DIFF 100 1 Normal [facility] Work Phone: CBCD,SMEAR DIFF SeeNote Normal [facility] Work Phone: Comment on above: Result: NORM C+C Result: ADEQUATE CBCD,SMEAR DIFF 28 % Normal 19-41 [facility] Work Phone: CBCD,SMEAR DIFF 64 % Normal 47-70 [facility] Work Phone: CBCD,SMEAR DIFF 3 % Normal 0-10 [facility] Work Phone: COMP METABOLICOrdered By: Aaron stem Department Director on 03-31-2009 Albumin mass conc 3.6 g/dL Normal 3.4-5.0 Compreh [facility] Internal Medicine Work Phone: Albumin/Globulin mass ratio 1.0 {RATIO} Normal 0.9-2.4 [facility] Internal Medicine Work Phone: ALP enzyme act/vol 57 U/L Normal 50-136 [facility] Work Phone: ALT enzyme act/vol 45 U/L Normal 30-65 [facility] Internal Medicine Work Phone: Anion gap 3 molar conc 10 mmol/L Normal 5-15 [facility] Internal Medicine Work Phone: Anion gap [Moles/Vol] 10 mmol/L Normal 5-15 [facility] Work Phone: AST enzyme act/vol 33 U/L Normal 15-37 [facility] Internal Medicine Work Phone: Bilirubin mass conc 0.70 mg/dL Normal 0.00-1.00 [facility] Internal Medicine Work Phone: Calcium mass conc 8.6 mg/dL Normal 8.5-10.1 Compreh [facility] Internal Medicine Work Phone: Chloride molar conc 102 mmol/L Normal 98-107 [facility] Internal Medicine Work Phone: CO2 molar conc 26.0 mmol/L Normal 21.0-32.0 Comprehen sive Internal Medicine Work Phone: Creatinine mass conc 1.1 mg/dL Normal 0.8-1.3 Comp rehensive Internal Medicine Work Phone: GFR/1.73 sq M predicted among blacks MDRD vol rate/area (S/P/Bld) 87 mL/min/{1.73_m2} Normal Comprehe nsive [facility] Medicine Work Phone: GFR/1.73 sq M.predicted MDRD (S/P/Bld) [Vol rate/Area] 72 mL/min/{1.73_m2} Normal Comprehens[facility] Work Phone: GFR/1.73 sq M.predicted MDRD vol rate/area 72 mL/min/{1.73_m2} Normal [facility] Work Phone: Globulin (S) [Mass/Vol] 3.6 g/dL Normal 2.7-4.2 [facility] Work Phone: Globulin Calculated mass conc (S) 3.6 g/dL Normal 2.7-4.2 [facility] Work Phone: Glucose mass conc 112 mg/dL Abnormal 70-110 Compreh ensive [facility] Work Phone: Comment on above: Fasting Glucose resu lt from 110 to <126 mg/dL suggests IMPAIRED HOMEOSTASIS per A.D.A. criteria. Potassium molar conc 4.1 mmol/L Normal 3.5-5.1 Comp rehensive [facility] Work Phone: Protein mass conc 7.2 g/dL Normal 6.4-8.2 Compre[facility] ens[facility] Work Phone: Sodium molar conc 138 mmol/L Normal 136-145 Compre[facility] Work Phone: Urea nitrogen mass conc 18 mg/dL Normal 7-18 [facility] Work Phone: Urea nitrogen/Creatinine mass ratio 16.4 {RATIO} Normal 10-20 [facility] Work Phone: LIPIDOrdered By: Ramakrishna saleh on 03-31-2009 Cholesterol in HDL mass conc 32 mg/dL Abnormal [facility] Work Phone: Comment on above: Reference Range HDL <40 mg/dL Low HDL Cholesterol HDL >or= 60 mg/dL High HDL Cholesterol Cholesterol in LDL mass conc 50 mg/dL Normal 0-130 [facility] Work Phone: Cholesterol in VLDL mass conc 38 mg/dL Normal 5-40 [facility] Work Phone: Cholesterol mass conc 120 mg/dL Normal Com prehensive [facility] Work Phone: Comment on above: <200 mg/dL Desirable 200-240 mg/dL Borderline >240 mg/dL High Risk Triglyceride mass conc 188 mg/dL Normal [facility] Work Phone: Comment on above: Serum Triglycerides Reference Interval Normal <150 mg/dL Borderline high 150 - 199 mg/dL High 200 - 499 mg/dL Very High > or = 500 mg/dL BMPOrdered By: System Manage r on 01-03-2009 Anion gap 3 molar conc 4 mmol/L Abnormal 5-15 [facility] Work Phone: Anion gap [Moles/Vol] 4 mmol/L Abnormal 5-15 Com prehensive [facility] Work Phone: Calcium mass conc 8.7 mg/dL Normal 8.5-10.1 Compreh ensive [facility] Work Phone: Chloride molar conc 106 mmol/L Normal 98-107 Compr ehensive [facility] Work Phone: CO2 molar conc 27.0 mmol/L Normal 21.0-32.0 Comprehen sive [facility] Work Phone: Creatinine mass conc 1.2 mg/dL Normal 0.8-1.3 Comp rehensive [facility] Work Phone: GFR/1.73 sq M predicted among blacks MDRD vol rate/area (S/P/Bld) 79 mL/min/{1.73_m2} Normal Comprehe nsive [facility] Work Phone: GFR/1.73 sq M.predicted MDRD (S/P/Bld) [Vol rate/Area] 65 mL/min/{1.73_m2} Normal Comprehensiv e [facility] Work Phone: GFR/1.73 sq M.predicted MDRD vol rate/area 65 mL/min/{1.73_m2} Normal Comprehens[facility] Work Phone: Glucose mass conc 115 mg/dL Abnormal 70-110 Compreh ens[facility] Work Phone: Comment on above: Fasting Glucose resu lt from 110 to <126 mg/dL suggests IMPAIRED HOMEOSTASIS per A.D.A. criteria. Potassium molar conc 4.1 mmol/L Normal 3.5-5.1 Comp rehensive [facility] Work Phone: Sodium molar conc 137 mmol/L Normal 136-145 Compreh ens[facility] Work Phone: Urea nitrogen mass conc 17 mg/dL Normal 7-18 [facility] Work Phone: Urea nitrogen/Creatinine mass ratio 14.2 {RATIO} Normal 10-20 [facility] Work Phone: THYROIDOrdered By: Ramakrishna nava on 12-02-2008 THYROID See Note Normal [facility] Work Phone: Comment on above: Exam Number: [id number] CLINICAL:Goiter ULTRASOUND THYROID COMPARISON:Ultrasound study dated 07/21/2007. FINDINGS:The right lobe is heterogeneous in echotexture and measures 5.4 x 1.4 x 2.1 cm. at its upper pole there is a stable hypoechoic nodule measuring 0.8 x 0.8 x 2.7 cm. In the upper to mid pole there is a hypoechoic nodule measuring 0.4 x 0.4 x 0.4 cm. The left lobe is slightly echogenic. At its lower pole there is a solid nodule measuring 0.8 x 0.7 x 0.6 cm.. Normal thyroid isthmus which measures 3-mm AP. There is no perithyroid pathology. IMPRESSION:Mildly enlarged thyroid gland. Stable thyroid nodules. Reported By: ANGIE GUERRERO Blood Glucose , Office ([phone])Ordered By: Bethany Bradford on 11-15-2008 Glucose Glucometer molar conc (BldC) 132 1 Normal [facility] Work Phone: HgA1C , Office ([phone])Ordere d By: Bethany Bradford on 11-15-2008 Hemoglobin A1c/Hemoglobin.total mass fraction (Bld) 5.9 % Normal 4.6 - 7.1 [facility] Work Phone: CBCD,SMEAR DIFFOrdered By: Pedrito ystem Department Director on 11-04-2008 Eosinophils/100 WBC (Bld) 1 % Normal 0-5 [facility] Work Phone: Eosinophils/100 WBC Auto (Bld) 1 % Normal 0-5 [facility] Work Phone: Erythrocyte distribution width (RBC) [Ratio] 15.6 % Abnormal 11.6-14.6 [facility] Work Phone: Erythrocyte distribution width Auto Ratio (RBC) 15.6 % Abnormal 11.6-14.6 [facility] Work Phone: Hematocrit (Bld) [Volume fraction] 42.3 % Normal 40-54 [facility] Work Phone: Hematocrit Auto Volume Fraction (Bld) 42.3 % Normal 40-54 Comprehens ke[facility] Work Phone: Hemoglobin mass conc (Bld) 14.3 g/dL Normal 14.0-18.0 [facility] Work Phone: MCH (RBC) [Entitic mass] 29.4 pg Normal 27.0-32.0 [facility] Work Phone: MCH Auto Entitic mass (RBC) 29.4 pg Normal 27.0-32.0 [facility] Work Phone: MCHC (RBC) [Mass/Vol] 33.9 g/dL Normal 32-36 Com prehensive [facility] Work Phone: MCHC Auto mass conc (RBC) 33.9 g/dL Normal 32-36 [facility] Work Phone: MCV (RBC) [Entitic vol] 86.8 fL Normal 80-94 [facility] Work Phone: MCV Auto Entitic volume (RBC) 86.8 fL Normal 80-94 [facility] Work Phone: Platelets (Bld) [#/Vol] 161 10*3/uL Normal 150-450 [facility] Internal Medicine Work Phone: Platelets Auto #/vol (Bld) 161 10*3/uL Normal 150-450 [facility] Work Phone: RBC (Bld) [#/Vol] 4.86 {M/mm3} Normal 4.6-6.2 [facility]: RBC Auto #/vol (Bld) 4.86 {M/mm3} Normal 4.6-6.2 [facility] [place] [facility] Work Phone: WBC (Bld) [#/Vol] 5.2 10*3/uL Normal 4.4-11.0 [facility] Work Phone: WBC Auto #/vol (Bld) 5.2 10*3/uL Normal 4.4-11.0 [facility] Internal Medicine Work Phone: CBCD,SMEAR DIFF SeeNote Normal [facility] Work Phone: Comment on above: Result: ADEQUATE Result: NEGATIVE Result: NORM C+C CBCD,SMEAR DIFF 6 % Abnormal 0-5 [facility] Work Phone: CBCD,SMEAR DIFF 100 1 Normal [facility] Work Phone: CBCD,SMEAR DIFF 23 % Normal 19-41 [facility] Work Phone: CBCD,SMEAR DIFF 7 % Normal 0-10 [facility] Internal Medicine Work Phone: CBCD,SMEAR DIFF 63 % Normal 47-70 [facility] Internal Medicine Work Phone: COMP METABOLICOrdered By: Aaron stem Department Director on 11-04-2008 Albumin mass conc 4.0 g/dL Normal 3.4-5.0 Compreh [facility] Internal Medicine Work Phone: Albumin/Globulin mass ratio 1.2 {RATIO} Normal 0.9-2.4 [facility] Internal Medicine Work Phone: ALP enzyme act/vol 54 U/L Normal 50-136 [facility] Work [facility]: ALT enzyme act/vol 53 U/L Normal 30-65 [facility] Work Phone: Anion gap 3 molar conc 7 mmol/L Normal 5-15 [facility] Work Phone: Anion gap [Moles/Vol] 7 mmol/L Normal 5-15 [facility] prehensive Internal Medicine Work Phone: AST enzyme act/vol 32 U/L Normal 15-37 [facility] Work Phone: Bilirubin mass conc 0.63 mg/dL Normal 0.00-1.00 Compr ehensive [facility] Medicine Work Phone: Calcium mass conc 8.9 mg/dL Normal 8.5-10.1 Compreh ensive [facility] Work Phone: Chloride molar conc 102 mmol/L Normal 98-107 Compr ensive [facility] Medicine Work Phone: CO2 molar conc 29.4 mmol/L Normal 21.0-32.0 [facility] Work Phone: Creatinine mass conc 1.4 mg/dL Abnormal 0.8-1.3 [facility]: GFR/1.73 sq M predicted among blacks MDRD vol rate/area (S/P/Bld) 65 mL/min/{1.73_m2} Normal Comprehe nsive Internal Medicine Work Phone: GFR/1.73 sq M.predicted MDRD (S/P/Bld) [Vol rate/Area] 54 mL/min/{1.73_m2} Abnormal Comprehensiv e [facility] Work Phone: GFR/1.73 sq M.predicted MDRD vol rate/area 54 mL/min/{1.73_m2} Abnormal Comprehensiv e [facility] Work Phone: Globulin (S) [Mass/Vol] 3.3 g/dL Normal 2.7-4.2 [facility] Work Phone: Globulin Calculated mass conc (S) 3.3 g/dL Normal 2.7-4.2 [facility] Work Phone: Glucose mass conc 104 mg/dL Normal 70-110 Compreh ensive [facility] Medicine Work Phone: Potassium molar conc 4.3 mmol/L Normal 3.5-5.1 Comp rehensive [facility] Medicine Work Phone: Protein mass conc 7.3 g/dL Normal 6.4-8.2 Compreh ensive [facility] Work Phone: Sodium molar conc 138 mmol/L Normal 136-145 Compreh ensive [facility] Work Phone: Urea nitrogen mass conc 22 mg/dL Abnormal 7-18 [facility] Work Phone: Urea nitrogen/Creatinine mass ratio 15.7 {RATIO} Normal 10-20 [facility] Work Phone: LIPIDOrdered By: Ramakrishna saleh on 11-04-2008 Cholesterol in HDL mass conc 37 mg/dL Normal [facility] Work Phone: Comment on above: Reference Range HDL <40 mg/dL Low HDL Cholesterol HDL >or= 60 mg/dL High HDL Cholesterol Cholesterol in LDL mass conc 57 mg/dL Normal 0-130 [facility] Work Phone: Cholesterol in VLDL mass conc 35 mg/dL Normal 5-40 [facility] Work Phone: Cholesterol mass conc 129 mg/dL Normal Com prehensive [facility] Medicine Work Phone: Comment on above: <200 mg/dL Desirable 200-240 mg/dL Borderline >240 mg/dL High Risk Triglyceride mass conc 175 mg/dL Normal [facility] Work Phone: Comment on above: Serum Triglycerides Reference Interval Normal <150 mg/dL Borderline high 150 - 199 mg/dL High 200 - 499 mg/dL Very High > or = 500 mg/dL MICROALBOrdered By: Ramakrishna waters on 11-04-2008 MICROALB 135.2 mg/dL Normal [facility] Work Phone: MICROALB 10.5 {mg/g_CRE} Normal Comprehen sive [facility] Medicine Work Phone: MICROALB 14.2 mg/L Normal [facility] Work Phone: PSA,TOT SCREENOrdered By: [employer] stem Department Director on 11-04-2008 Prostate specific Ag mass conc 2.57 ng/mL Normal 0.00-4.00 [facility] Work Phone: Comment on above: This test was perfor med using the TPSA method for [employer] chemistry system.Values obtained with different assay methods cannot be usedinterchangably.When changing PSA assays in the course of monitoring apatient, additional sequential testing should be carriedout to confirm baseline values. ROUTINE UAOrdered By: Grid Operator on 11-04-2008 ROUTINE UA 5.5 1 Normal 5.0-8.0 [facility] Work Phone: ROUTINE UA 0.2 EU/dl Normal 0.2 - 1.0 [facility] Work Phone: ROUTINE UA 1.025 1 Normal 1.002-1.03 0 [facility] Work Phone: ROUTINE UA YELLOW Normal [facility] Work Phone: ROUTINE UA CLEAR Normal [facility] Work Phone: TSHOrdered By: [employer] r on 11-04-2008 Thyrotropin Qn 1.11 {uIU/mL} Normal 0.34-4.82 Compreh ensive Internal Medicine Work Phone: Blood Glucose , Office ([phone])Ordered By: Kriss Ro on 08-16-2008 Glucose Glucometer molar conc (BldC) 118 1 Normal [facility] Work Phone: HgA1C , Office ([phone])Ordere d By: Kriss Ro on 08-16-2008 Hemoglobin A1c/Hemoglobin.total mass fraction (Bld) 6.3 % Normal 4.6 - 7.1 Comprehensiv e [facility] Work Phone: BMPOrdered By: Student [employer] r on 08-05-2008 Anion gap 3 molar conc 10 mmol/L Normal 5-15 [facility] Work Phone: Anion gap [Moles/Vol] 10 mmol/L Normal 5-15 Com prehensive [facility] Medicine Work Phone: Calcium mass conc 8.8 mg/dL Normal 8.5-10.1 Compreh ensive [facility] Work Phone: Chloride molar conc 103 mmol/L Normal 98-107 Compr ehensive [facility] Medicine Work Phone: CO2 molar conc 27.4 mmol/L Normal 21.0-32.0 Comprehen sive [facility] Medicine Work Phone: Creatinine mass conc 1.2 mg/dL Normal 0.8-1.3 Comp rehensive [facility] Medicine Work Phone: GFR/1.73 sq M predicted among blacks MDRD vol rate/area (S/P/Bld) 79 mL/min/{1.73_m2} Normal Comprehe nsive Internal Medicine Work Phone: Comment on above: ESTIMATED GLOMERULAR FILTRATION RATE The National Kidney Foundation (NKF) guidelines forChronic kidney disease (CKD) recommends all laboratoriesestimate the level of glomerular filtration rate (GFR)in patients from age 18 - 70 years of age.The eGFR for patient's is the eGFRmultiplied by 1.212. [facility] Laboratory uses the abbreviated Modification of Diet inRenal Disease (MDRD) study equation to calculate the eGFR.The Estimated GFR equation is not applicable for patients<18 years of age or patients >70 years of age.The following conditions may alter the eGFR calculationresult: extremes in body size, severe malnutrition orobesity, skeletal muscle disease, paraplegia, quadriplegia,vegetarian diet, , certain drug therapy and rapidlychanging kidney function. Association of GFR and Staging of Kidney Disease*GFR (mL/min) With Kidney Disease W/O Kidney Disease>/= 90 Stage One Bgsmfc01 - 89 Stage Two Suspect Decreased GFR30 - 59 Stage Three Stage Three15 - 29 Stage Four Stage Four< 15 or Dialysis Stage Five Stage Five *Each stage assumes the associated GFR level has been ineffect for at least three months.Additional studies & clinical assessments are indicated toconclude diagnosis of Chronic Kidney Disease (CKD). GFR/1.73 sq M.predicted MDRD (S/P/Bld) [Vol rate/Area] 65 mL/min/{1.73_m2} Normal Comprehensiv e [facility] Medicine Work Phone: GFR/1.73 sq M.predicted MDRD vol rate/area 65 mL/min/{1.73_m2} Normal Comprehensiv e [facility] Work Phone: Glucose mass conc 129 mg/dL Abnormal 70-110 Compreh ensive [facility] Work Phone: Comment on above: Fasting Glucose resu lt greater than or equal to 126 mg/dL suggests DIABETES MELLITUS per A.D.A. criteria. Potassium molar conc 4.4 mmol/L Normal 3.5-5.1 Comp rehensive Internal Medicine Work Phone: Sodium molar conc 140 mmol/L Normal 136-145 Compreh ensive [facility] Medicine Work Phone: Urea nitrogen mass conc 15 mg/dL Normal 7-18 [facility] Work Phone: Urea nitrogen/Creatinine mass ratio 12.5 {RATIO} Normal 10-20 [facility] Work Phone: LIPIDOrdered By: [employer] on 08-05-2008 Cholesterol in HDL mass conc 33 mg/dL Abnormal [facility] Work Phone: Comment on above: Reference Range HDL <40 mg/dL Low HDL Cholesterol HDL >or= 60 mg/dL High HDL Cholesterol Cholesterol in LDL mass conc 31 mg/dL Normal 0-130 [facility] Work Phone: Cholesterol in VLDL mass conc 48 mg/dL Abnormal 5-40 [facility] Work Phone: Cholesterol mass conc 112 mg/dL Normal Com prehensive [facility] Work Phone: Comment on above: <200 mg/dL Desirable 200-240 mg/dL Borderline >240 mg/dL High Risk Triglyceride mass conc 242 mg/dL Abnormal [facility] Work Phone: Comment on above: Serum Triglycerides Reference Interval Normal <150 mg/dL Borderline high 150 - 199 mg/dL High 200 - 499 mg/dL Very High > or = 500 mg/dL LIVEROrdered By: [employer] on 08-05-2008 Albumin mass conc 3.7 g/dL Normal 3.4-5.0 Compreh ensive Internal Medicine Work Phone: ALP enzyme act/vol 52 U/L Normal 50-136 [facility] Work Phone: ALT enzyme act/vol 54 U/L Normal 30-65 [facility] Internal [facility] Work Phone: AST enzyme act/vol 33 U/L Normal 15-37 [facility] Internal [facility] Work Phone: Bilirubin mass conc 0.41 mg/dL Normal 0.00-1.00 Compr ensive Internal Medicine Work Phone: Protein mass conc 7.1 g/dL Normal 6.4-8.2 Compreh ensive Internal Medicine Work Phone: LIVER 0.08 mg/dL Normal 0.00-0.30 [facility] Internal Medicine Work Phone: BMPOrdered By: System Manage r on 06-08-2008 Anion gap 3 molar conc 7 mmol/L Normal 5-15 [facility] Work Phone: Anion gap [Moles/Vol] 7 mmol/L Normal 5-15 Com prehensive [facility] Medicine Work Phone: Calcium mass conc 8.6 mg/dL Normal 8.5-10.1 Compreh ensive [facility] Medicine Work Phone: Chloride molar conc 100 mmol/L Normal 98-107 Compr ensive Internal Medicine Work Phone: CO2 molar conc 28.8 mmol/L Normal 21.0-32.0 [facility] Work Phone: Creatinine mass conc 1.1 mg/dL Normal 0.8-1.3 Comp rehensive Internal Medicine Work Phone: Glucose mass conc 115 mg/dL Abnormal 70-110 Compreh ensive [facility] Medicine Work Phone: Comment on above: Fasting Glucose resu lt from 110 to <126 mg/dL suggests IMPAIRED HOMEOSTASIS per A.D.A. criteria. Potassium molar conc 4.4 mmol/L Normal 3.5-5.1 Comp rehensive Internal Medicine Work Phone: Sodium molar conc 136 mmol/L Normal 136-145 Compreh ensive Internal Medicine Work Phone: Urea nitrogen mass conc 16 mg/dL Normal 7-18 [facility] Work Phone: Urea nitrogen/Creatinine mass ratio 14.5 {RATIO} Normal 10-20 [facility] Work Phone: Blood Glucose , Office ([phone])Ordered By: Bethany Bradford on 05-06-2008 Glucose Glucometer molar conc (BldC) 135 1 Normal [facility] Work Phone: HgA1C , Office ([phone])Ordere d By: Lola Lara on 05-06-2008 Hemoglobin A1c/Hemoglobin.total mass fraction (Bld) 6.9 % Normal 4.6 - 7.1 Comprehensiv e Internal Medicine Work Phone: COMP METABOLICOrdered By: Aaron stem Department Director on 04-27-2008 Albumin mass conc 3.9 g/dL Normal 3.4-5.0 Compreh ensive Internal Medicine Work Phone: Albumin/Globulin mass ratio 1.1 {RATIO} Normal 0.9-2.4 [facility] Work Phone: ALP enzyme act/vol 62 U/L Normal 50-136 [facility] Work Phone: ALT enzyme act/vol 60 U/L Normal 30-65 Compre [facility] Internal Medicine Work Phone: Anion gap 3 molar conc 9 mmol/L Normal 5-15 [facility] Work Phone: Anion gap [Moles/Vol] 9 mmol/L Normal 5-15 [facility] prehensive Internal Medicine Work Phone: AST enzyme act/vol 32 U/L Normal 15-37 Compre hensive Internal Medicine Work Phone: Bilirubin mass conc 0.58 mg/dL Normal 0.00-1.00 Compr ehensive Internal Medicine Work Phone: Calcium mass conc 8.8 mg/dL Normal 8.5-10.1 Compreh ensive Internal Medicine Work Phone: Chloride molar conc 100 mmol/L Normal 98-107 Compr ehensive Internal Medicine Work Phone: CO2 molar conc 27.0 mmol/L Normal 21.0-32.0 Comprehen sive Internal Medicine Work Phone: Creatinine mass conc 1.1 mg/dL Normal 0.8-1.3 Comp rehensive Internal Medicine Work Phone: Globulin (S) [Mass/Vol] 3.6 g/dL Normal 2.7-4.2 [facility] Work Phone: Globulin Calculated mass conc (S) 3.6 g/dL Normal 2.7-4.2 [facility] Work Phone: Glucose mass conc 116 mg/dL Abnormal 70-110 Compreh ensive [facility] Medicine Work Phone: Comment on above: Fasting Glucose resu lt from 110 to <126 mg/dL suggests IMPAIRED HOMEOSTASIS per A.D.A. criteria. Potassium molar conc 4.2 mmol/L Normal 3.5-5.1 Comp rehensive Internal Medicine Work Phone: Protein mass conc 7.5 g/dL Normal 6.4-8.2 Compreh ensive Internal Medicine Work Phone: Sodium molar conc 136 mmol/L Normal 136-145 Compreh ensive [facility] Medicine Work Phone: Urea nitrogen mass conc 18 mg/dL Normal 7-18 [facility] Work Phone: Urea nitrogen/Creatinine mass ratio 16.4 {RATIO} Normal 10-20 [facility] Work Phone: D BILIOrdered By: System Man ager on 04-27-2008 D BILI 0.10 mg/dL Normal 0.00-0.30 [facility] Work Phone: LIPIDOrdered By: System Gerda delfino on 04-27-2008 Cholesterol in HDL mass conc 31 mg/dL Abnormal [facility] Work Phone: Comment on above: Reference Range HDL <40 mg/dL Low HDL Cholesterol HDL >or= 60 mg/dL High HDL Cholesterol Cholesterol in LDL mass conc 44 mg/dL Normal 0-130 [facility] Work Phone: Cholesterol in VLDL mass conc 43 mg/dL Abnormal 5-40 [facility] Work Phone: Cholesterol mass conc 118 mg/dL Normal Com prehensive Internal Medicine Work Phone: Comment on above: <200 mg/dL Desirable 200-240 mg/dL Borderline >240 mg/dL High Risk Triglyceride mass conc 213 mg/dL Abnormal [facility] Work Phone: Comment on above: Serum Triglycerides Reference Interval Normal <150 mg/dL Borderline high 150 - 199 mg/dL High 200 - 499 mg/dL Very High > or = 500 mg/dL Blood Glucose , Office ([phone])Ordered By: Bethany Bradford on 01-01-2008 Glucose Glucometer molar conc (BldC) 169 1 Normal [facility] Work Phone: HgA1C , Office ([phone])Ordere d By: Bethany Bradford on 01-01-2008 Hemoglobin A1c/Hemoglobin.total mass fraction (Bld) 7.3 % Abnormal 4.6 - 7.1 Comprehensiv e Internal Medicine Work Phone: LIPIDOrdered By: System Gerda Ogin on 12-22-2007 Cholesterol in HDL mass conc 29 mg/dL Abnormal [facility] Work Phone: Comment on above: Reference Range HDL <40 mg/dL Low HDL Cholesterol HDL >or= 60 mg/dL High HDL Cholesterol Cholesterol in LDL mass conc 85 mg/dL Normal 0-130 [facility] Work Phone: Cholesterol in VLDL mass conc 45 mg/dL Abnormal 5-40 [facility] Work Phone: Cholesterol mass conc 159 mg/dL Normal Com prehensive Internal Medicine Work Phone: Comment on above: <200 mg/dL Desirable 200-240 mg/dL Borderline >240 mg/dL High Risk Triglyceride mass conc 227 mg/dL Abnormal [facility] Work Phone: Comment on above: Serum Triglycerides Reference Interval Normal <150 mg/dL Borderline high 150 - 199 mg/dL High 200 - 499 mg/dL Very High > or = 500 mg/dL LIVEROrdered By: System Gerda delfino on 12-22-2007 Albumin mass conc 3.5 g/dL Normal 3.4-5.0 Compreh ensive Internal Medicine Work Phone: ALP enzyme act/vol 62 U/L Normal 50-136 Compre hensive [facility] Medicine Work Phone: ALT enzyme act/vol 55 U/L Normal 30-65 Compre hensive [facility] Work Phone: AST enzyme act/vol 34 U/L Normal 15-37 Compre hensive [facility] Medicine Work Phone: Bilirubin mass conc 0.59 mg/dL Normal 0.00-1.00 Compr ehensive Internal Medicine Work Phone: Protein mass conc 6.9 g/dL Normal 6.4-8.2 Compreh ensive Internal Medicine Work Phone: LIVER 0.09 mg/dL Normal 0.00-0.30 [facility] Work Phone: Blood Glucose , Office ([phone])Ordered By: Bethany Bradford on 09-15-2007 Glucose Glucometer molar conc (BldC) 184 1 Normal [facility] Work Phone: HgA1C , Office ([phone])Ordere d By: Bethany Bradford on 09-15-2007 Hemoglobin A1c/Hemoglobin.total mass fraction (Bld) 7.2 % Abnormal 4.6 - 7.1 Comprehensiv e Internal Medicine Work Phone: CBCD,SMEAR DIFFOrdered By: Pedrito ystem Department Director on 09-08-2007 Eosinophils/100 WBC (Bld) 1 % Normal 0-5 [facility] Work Phone: Eosinophils/100 WBC Auto (Bld) 1 % Normal 0-5 [facility] Work Phone: Erythrocyte distribution width (RBC) [Ratio] 14.8 % Abnormal 11.6-14.6 [facility] Work Phone: Erythrocyte distribution width Auto Ratio (RBC) 14.8 % Abnormal 11.6-14.6 Comprehensive Internal Medicine Work Phone: Hematocrit (Bld) [Volume fraction] 44.4 % Normal 40-54 [facility] Work Phone: Hematocrit Auto Volume Fraction (Bld) 44.4 % Normal 40-54 Comprehens kevin Internal Medicine Work Phone: Hemoglobin mass conc (Bld) 15.1 g/dL Normal 14.0-18.0 [facility] Internal Medicine Work Phone: MCH (RBC) [Entitic mass] 29.0 pg Normal 27.0-32.0 [facility] Work Phone: MCH Auto Entitic mass (RBC) 29.0 pg Normal 27.0-32.0 [facility] Internal Medicine Work Phone: MCHC (RBC) [Mass/Vol] 34.1 g/dL Normal 32-36 [facility] prehensive Internal Medicine Work Phone: MCHC Auto mass conc (RBC) 34.1 g/dL Normal 32-36 [facility] Internal Medicine Work Phone: MCV (RBC) [Entitic vol] 85.2 fL Normal 80-94 [facility] Work Phone: MCV Auto Entitic volume (RBC) 85.2 fL Normal 80-94 [facility] Internal Medicine Work Phone: Platelets (Bld) [#/Vol] 168 10*3/uL Normal 150-450 [facility] Internal Medicine Work Phone: Platelets Auto #/vol (Bld) 168 10*3/uL Normal 150-450 [facility] Internal Medicine Work Phone: RBC (Bld) [#/Vol] 5.21 {M/mm3} Normal 4.6-6.2 [facility] Work Phone: RBC Auto #/vol (Bld) 5.21 {M/mm3} Normal 4.6-6.2 [facility] Internal Medicine Work Phone: WBC (Bld) [#/Vol] 5.8 10*3/uL Normal 4.4-11.0 Compre hensive Internal Medicine Work Phone: WBC Auto #/vol (Bld) 5.8 10*3/uL Normal 4.4-11.0 [facility] prehensive Internal Medicine Work Phone: CBCD,SMEAR DIFF 100 1 [facility] Work Phone: CBCD,SMEAR DIFF 3 % Normal 0-5 [facility] Work Phone: CBCD,SMEAR DIFF 59 % Normal 47-70 [facility] Work Phone: CBCD,SMEAR DIFF 28 % Normal 19-41 [facility] Work Phone: CBCD,SMEAR DIFF 9 % Normal 0-10 [facility] Internal Medicine Work Phone: CBCD,SMEAR DIFF SeeNote Normal [facility] Work Phone: Comment on above: Result: ADEQUATE Result: NORM C+C COMP METABOLICOrdered By: Aaron stem Department Director on 09-08-2007 Albumin mass conc 3.6 g/dL Normal 3.4-5.0 [facility] Internal Medicine Work Phone: Albumin/Globulin mass ratio 0.9 {RATIO} Normal 0.9-2.4 [facility] Internal Medicine Work Phone: ALP enzyme act/vol 56 U/L Normal 50-136 [facility] Work Phone: ALT enzyme act/vol 54 [iU]/L Normal 30-65 [facility] Internal Medicine Work Phone: Anion gap 3 molar conc 6 mmol/L Normal 5-15 [facility] Internal Medicine Work Phone: Anion gap [Moles/Vol] 6 mmol/L Normal 5-15 [facility] prehensive Internal Medicine Work Phone: AST enzyme act/vol 27 U/L Normal 15-37 [facility] Internal Medicine Work Phone: Bilirubin mass conc 0.55 mg/dL Normal 0.00-1.00 [facility] Internal Medicine Work Phone: Calcium mass conc 8.6 mg/dL Normal 8.5-10.1 [facility] Internal Medicine Work Phone: Chloride molar conc 102 mmol/L Normal 98-107 [facility] Internal [facility] Work Phone: CO2 molar conc 26.6 mmol/L Normal 21.0-32.0 Comprehen sive Internal Medicine Work Phone: Comment on above: Please Note Refer ence Interval Change Creatinine mass conc 1.2 mg/dL Normal 0.8-1.3 Comp rehensive Internal Medicine Work Phone: Globulin (S) [Mass/Vol] 3.8 g/dL Normal 2.7-4.2 [facility] Work Phone: Comment on above: Please Note Refer ence Interval Change Globulin Calculated mass conc (S) 3.8 g/dL Normal 2.7-4.2 [facility] Work Phone: Comment on above: Please Note Refer ence Interval Change Glucose mass conc 145 mg/dL Abnormal 70-110 Compreh ensive Internal Medicine Work Phone: Comment on above: Fasting Glucose resu lt greater than or equal to 126 mg/dL suggests DIABETES MELLITUS per A.D.A. criteria. Potassium molar conc 4.4 mmol/L Normal 3.5-5.1 Comp rehensive Internal Medicine Work Phone: Protein mass conc 7.4 g/dL Normal 6.4-8.2 Compreh ensive Internal Medicine Work Phone: Sodium molar conc 135 mmol/L Abnormal 136-145 Compreh ensive Internal Medicine Work Phone: Urea nitrogen mass conc 15 mg/dL Normal 7-18 [facility] Work Phone: Urea nitrogen/Creatinine mass ratio 12.5 {RATIO} Normal 10-20 [facility] Work Phone: D BILIOrdered By: System Man ager on 09-08-2007 D BILI 0.18 mg/dL Normal 0.00-0.30 [facility] Work Phone: LIPIDOrdered By: System Gerda delfino on 09-08-2007 Cholesterol in HDL mass conc 33 mg/dL Abnormal [facility] Work Phone: Comment on above: Reference Range HDL <40 mg/dL Low HDL Cholesterol HDL >or= 60 mg/dL High HDL Cholesterol Cholesterol in LDL mass conc 55 mg/dL Normal 0-130 [facility] Work Phone: Cholesterol in VLDL mass conc 36 mg/dL Normal 5-40 [facility] Work Phone: Cholesterol mass conc 124 mg/dL Normal Com prehensive Internal Medicine Work Phone: Comment on above: <200 mg/dL Desirable 200-240 mg/dL Borderline >240 mg/dL High Risk Triglyceride mass conc 180 mg/dL Normal [facility] Work Phone: Comment on above: Serum Triglycerides Reference Interval Normal <150 mg/dL Borderline high 150 - 199 mg/dL High 200 - 499 mg/dL Very High > or = 500 mg/dL PSA,TOT SCREENOrdered By: Cuciniale Department Director on 09-08-2007 Prostate specific Ag mass conc 2.01 ng/mL Normal 0.00-4.00 [facility] Work Phone: Comment on above: This test was perfor med using the TPSA method for the[employer] chemistry system.Values obtained with different assay methods cannot be usedinterchangably.When changing PSA assays in the course of monitoring apatient, additional sequential testing should be carriedout to confirm baseline values. TSHOrdered By: System Manage r on 09-08-2007 Thyrotropin Qn 0.68 {uIU/mL} Normal 0.34-4.82 Compreh ensive Internal Medicine Work Phone: THYROIDOrdered By: Ramakrishna nava on 07-21-2007 THYROID See Note Normal [facility] Work Phone: Comment on above: Exam Number: [id number] THYROID ULTRASOUND HISTORYGoiter. High resolution real time linear images were obtained. The currentstudy is compared to the examination of January 13, 2007. The rightthyroid lobe measures 5.2 x 2.1 x 1.8 cm. It measured 5.2 x 2.1 x 1.9cm previously. As on the previous examination, there are 2 nodulesidentified in the right thyroid lobe. The more superiorly located measures 4 x 3 x 4 mm compared to 4 x 3 x 4 mm previously. The moreinferiorly located measures 8 x 6 x 7 mm compared to 8 x 5 x 7 mmpreviously. The left lobe of the thyroid measures 5.1 x 1.4 x 1.9 cm.The right lobe measured 5.1 x 1.5 x 2.5 cm previously. The isthmusmeasures 3 mm which is unchanged. The thyroid is mildly inhomogeneousdiffusely. The findings are most likely to represent multinodular goiter. Thereis no significant interval change. IMPRESSIONThe thyroid demonstrates findings most likely representingmultinodular goiter. The appearance of the thyroid is unchanged fromthe examination of January 13, 2007. Reported By: MARIELLE HACKETT M.D. Blood Glucose , Office ([phone])Ordered By: Bethany Bradford on 06-12-2007 Glucose Glucometer molar conc (BldC) 164 1 Normal [facility] Work Phone: HgA1C , Office ([phone])Ordere d By: Bethany Bradford on 06-12-2007 Hemoglobin A1c/Hemoglobin.total mass fraction (Bld) 6.6 % Normal 4.6 - 7.1 Comprehensiv e Internal Medicine Work Phone: Blood Glucose , Office ([phone])Ordered By: Bethany Bradford on 01-26-2007 Glucose Glucometer molar conc (BldC) 131 1 Normal [facility] Work Phone: Comment on above: done-ana HgA1C , Office ([phone])Ordere d By: Bethany Bradford on 01-26-2007 Hemoglobin A1c/Hemoglobin.total mass fraction (Bld) 6.3 % Normal 4.6 - 7.1 Comprehensiv e Internal Medicine Work Phone: Comment on above: done-rashaadp COMP METABOLICOrdered By: Sy stem Department Director on 01-13-2007 Albumin mass conc 3.7 g/dL Normal 3.4-5.0 Compreh ensive Internal Medicine Work Phone: Albumin/Globulin mass ratio 1.1 {RATIO} Normal 0.9-2.4 [facility] Work Phone: ALP enzyme act/vol 56 U/L Normal 50-136 Compre hensive Internal Medicine Work Phone: ALT enzyme act/vol 59 [iU]/L Normal 30-65 Compre [facility] Internal Medicine Work Phone: Anion gap 3 molar conc 9 mmol/L Normal 5-15 [facility] Work Phone: Anion gap [Moles/Vol] 9 mmol/L Normal 5-15 [facility] prehensive Internal Medicine Work Phone: AST enzyme act/vol 32 U/L Normal 15-37 Compre [facility] Internal Medicine Work Phone: Bilirubin mass conc 0.68 mg/dL Normal 0.00-1.00 Compr ensive Internal Medicine Work Phone: Calcium mass conc 8.4 mg/dL Abnormal 8.5-10.1 [facility] Work Phone: Chloride molar conc 104 mmol/L Normal 98-107 [facility] Internal Medicine Work Phone: CO2 molar conc 25.6 mmol/L Normal 22.0-29.0 [facility]prehen [facility] Work Phone: Creatinine mass conc 1.1 mg/dL Normal 0.8-1.3 [facility] Work Phone: Globulin (S) [Mass/Vol] 3.4 g/dL Normal 2.3-3.5 [facility] Internal Medicine Work Phone: Globulin Calculated mass conc (S) 3.4 g/dL Normal 2.3-3.5 [facility] Internal Medicine Work Phone: Glucose mass conc 113 mg/dL Abnormal 70-110 [facility] Work Phone: Comment on above: Fasting Glucose resu lt from 110 to <126 mg/dL suggests IMPAIRED HOMEOSTASIS per A.D.A. criteria. Potassium molar conc 4.5 mmol/L Normal 3.5-5.1 Comp rehensive Internal Medicine Work Phone: Protein mass conc 7.1 g/dL Normal 6.4-8.2 [facility] Work Phone: Sodium molar conc 139 mmol/L Normal 136-145 [facility] Work Phone: Urea nitrogen mass conc 19 mg/dL Abnormal 7-18 [facility] Work Phone: Urea nitrogen/Creatinine mass ratio 17.3 {RATIO} Normal 10-20 [facility] Work Phone: LIPIDOrdered By: Ramakrishna saleh on 01-13-2007 Cholesterol in HDL mass conc 34 mg/dL Abnormal [facility] Work Phone: Comment on above: Reference Range HDL <40 mg/dL Low HDL Cholesterol HDL >or= 60 mg/dL High HDL Cholesterol Cholesterol in LDL mass conc 72 mg/dL Normal 0-130 [facility] Work Phone: Cholesterol in VLDL mass conc 31 mg/dL Normal 5-40 [facility] Work Phone: Cholesterol mass conc 137 mg/dL Normal Com prehensive Internal Medicine Work Phone: Comment on above: <200 mg/dL Desirable 200-240 mg/dL Borderline >240 mg/dL High Risk Triglyceride mass conc 155 mg/dL Normal [facility] Work Phone: Comment on above: Serum Triglycerides Reference Interval Normal <150 mg/dL Borderline high 150 - 199 mg/dL High 200 - 499 mg/dL Very High > or = 500 mg/dL THYROID (HP)Ordered By: Syst em Department Director on 01-13-2007 THYROID (HP) See Note Normal Comprehensiv e Internal Medicine Work Phone: Comment on above: Exam Number: [id number] THYROID ULTRASOUND HISTORYGoiter. High resolution real time linear images were obtained. The currentstudy is compared to the examination of July 22, 2006. The thyroidis mildly enlarged. The right lobe measures 5.2 x 2.1 x 1.9 cm. Theleft lobe measures 5.1 x 1.5 x 2.5 cm. The isthmus measures 3 mm inthickness. There is therefore little change in size of the thyroidcompared to the previous study of July 22, 2006. The thyroid isdiffusely inhomogeneous. At the time of the previous examination, asingle nodule was identified in the mid-right thyroid lobe. Thismeasured 8 x 7 x 7 mm. On the current examination it is measured at8 x 5 x 7 mm. Immediately adjacent to this nodule which was seenpreviously, there is a 2nd nodule which is not identified on theprevious examination. This measures 4 x 3 x 4 mm. The findings arestill most likely to represent multinodular goiter. Because there daniela new nodule, additional follow-up ultrasound in 6 months issuggested. IMPRESSIONThere is a new nodule seen on the right. The findings still are mostlikely to represent multinodular goiter. Because of the change, anadditional follow-up ultrasound in 6 months is suggested. Reported By: MARIELLE HACKETT M.D. TSHOrdered By: System Manage r on 01-13-2007 Thyrotropin Qn 0.59 {uIU/mL} Normal 0.34-4.82 Compreh ensive Internal Medicine Work Phone: Blood Glucose , Office ([phone])Ordered By: Bethany Bradford on 07-18-2006 Glucose Glucometer molar conc (BldC) 92 1 Normal [facility] Work Phone: HgA1C , Office ([phone])Ordere d By: Lola Lara on 07-18-2006 Hemoglobin A1c/Hemoglobin.total mass fraction (Bld) 5.9 % Normal 4.6 - 7.1 Comprehensiv e Internal Medicine Work Phone: CBCD,SMEAR DIFFOrdered By: S ystem Department Director on 07-05-2006 Eosinophils/100 WBC (Bld) 3 % Normal 0-5 [facility] Work Phone: Eosinophils/100 WBC Auto (Bld) 3 % Normal 0-5 [facility] Work Phone: Erythrocyte distribution width (RBC) [Ratio] 15.2 % Abnormal 11.6-14.6 [facility] Work Phone: Erythrocyte distribution width Auto Ratio (RBC) 15.2 % Abnormal 11.6-14.6 [facility] Work Phone: Hematocrit (Bld) [Volume fraction] 44.6 % Normal 40-54 [facility] Work Phone: Hematocrit Auto Volume Fraction (Bld) 44.6 % Normal 40-54 Comprehens [facility] Internal Medicine Work Phone: Hemoglobin mass conc (Bld) 15.1 g/dL Normal 14.0-18.0 [facility] Work Phone: MCH (RBC) [Entitic mass] 29.0 pg Normal 27.0-32.0 [facility] Work Phone: MCH Auto Entitic mass (RBC) 29.0 pg Normal 27.0-32.0 [facility] Work Phone: MCHC (RBC) [Mass/Vol] 33.9 g/dL Normal 32-36 [facility] Work Phone: MCHC Auto mass conc (RBC) 33.9 g/dL Normal 32-36 [facility] Internal Medicine Work Phone: MCV (RBC) [Entitic vol] 85.6 fL Normal 80-94 [facility] Internal Medicine Work Phone: MCV Auto Entitic volume (RBC) 85.6 fL Normal 80-94 [facility] Internal Medicine Work Phone: Platelets (Bld) [#/Vol] 157 10*3/uL Normal 150-450 [facility] Internal Medicine Work Phone: Platelets Auto #/vol (Bld) 157 10*3/uL Normal 150-450 [facility] Internal Medicine Work Phone: RBC (Bld) [#/Vol] 5.21 {M/mm3} Normal 4.6-6.2 [facility] Internal Medicine Work Phone: RBC Auto #/vol (Bld) 5.21 {M/mm3} Normal 4.6-6.2 Co [facility] Internal Medicine Work Phone: WBC (Bld) [#/Vol] 5.5 10*3/uL Normal 4.4-11.0 [facility] Internal Medicine Work Phone: WBC Auto #/vol (Bld) 5.5 10*3/uL Normal 4.4-11.0 [facility] Internal Medicine Work Phone: CBCD,SMEAR DIFF SeeNote Normal 0-5 Comprehen [facility] Internal Medicine Work Phone: Comment on above: Result: ADEQUATE Result: NORM C&C Result: NEGATIVE Result: 0-5 SEEN CBCD,SMEAR DIFF 60 % Normal 47-70 [facility] Internal Medicine Work Phone: CBCD,SMEAR DIFF 100 1 Normal [facility] Internal Medicine Work Phone: CBCD,SMEAR DIFF 25 % Normal 19-41 [facility] Internal Medicine Work Phone: CBCD,SMEAR DIFF 12 % Abnormal 0-10 [facility] Internal Medicine Work Phone: COMP METABOLICOrdered By: Aaron stem Department Director on 07-05-2006 Albumin mass conc 3.9 g/dL Normal 3.4-5.0 [facility] Internal Medicine Work Phone: Albumin/Globulin mass ratio 1.1 {RATIO} Normal 0.9-2.4 [facility] Internal Medicine Work Phone: ALP enzyme act/vol 63 U/L Normal 50-136 [facility] Internal Medicine Work Phone: ALT enzyme act/vol 49 [iU]/L Normal 30-65 [facility] Internal Medicine Work Phone: Anion gap 3 molar conc 7 mmol/L Normal 5-15 [facility] Internal Medicine Work Phone: Anion gap [Moles/Vol] 7 mmol/L Normal 5-15 [facility] Internal Medicine Work Phone: AST enzyme act/vol 25 U/L Normal 15-37 [facility] Internal Medicine Work Phone: Bilirubin mass conc 0.49 mg/dL Normal 0.00-1.00 [facility] Internal Medicine Work Phone: Calcium mass conc 8.8 mg/dL Normal 8.5-10.1 [facility] Internal Medicine Work Phone: Chloride molar conc 104 mmol/L Normal 98-107 [facility] Internal Medicine Work Phone: CO2 molar conc 27.9 mmol/L Normal 22.0-29.0 [facility] Internal Medicine Work Phone: Creatinine mass conc 1.2 mg/dL Normal 0.8-1.3 Comp rehensive Internal Medicine Work Phone: Globulin (S) [Mass/Vol] 3.5 g/dL Normal 2.3-3.5 [facility] Work Phone: Globulin Calculated mass conc (S) 3.5 g/dL Normal 2.3-3.5 [facility] Work Phone: Glucose mass conc 112 mg/dL Abnormal 70-110 Compreh ensive Internal Medicine Work Phone: Comment on above: Fasting Glucose resu lt from 110 to <126 mg/dL suggests IMPAIRED HOMEOSTASIS per A.D.A. criteria. Potassium molar conc 4.6 mmol/L Normal 3.5-5.1 Comp rehensive Internal Medicine Work Phone: Protein mass conc 7.4 g/dL Normal 6.4-8.2 Compreh ensive Internal Medicine Work Phone: Sodium molar conc 139 mmol/L Normal 136-145 Compreh ensive Internal Medicine Work Phone: Urea nitrogen mass conc 23 mg/dL Abnormal 7-18 [facility] Work Phone: Urea nitrogen/Creatinine mass ratio 19.2 {RATIO} Normal 10-20 [facility] Work Phone: COMPLETE UAOrdered By: Lily Fong on 07-05-2006 COMPLETE UA 0 SEEN Normal [facility] Work Phone: COMPLETE UA CLEAR Normal [facility] Work Phone: COMPLETE UA YELLOW Normal [facility] Work Phone: COMPLETE UA 5.0 1 Normal 5.0-8.0 [facility] Work Phone: COMPLETE UA >=1.030 Normal 1.002-1.03 0 [facility] Work Phone: COMPLETE UA 0.2 EU/dl Normal 0.2 - 1.0 [facility] Work Phone: MICROALBOrdered By: Ramakrishna waters on 07-05-2006 MICROALB 10.5 {mg/g_CRE} Normal Comprehen sive Internal Medicine Work Phone: MICROALB 15.9 mg/L Normal [facility] Work Phone: MICROALB 151.8 mg/dL Normal [facility] Work Phone: PFLIPOrdered By: Ramakrishna saleh on 07-05-2006 Cholesterol in HDL mass conc 29 mg/dL Abnormal [facility] Work Phone: Comment on above: Reference Range HDL <40 mg/dL Low HDL Cholesterol HDL >or= 60 mg/dL High HDL Cholesterol Cholesterol in LDL mass conc 65 mg/dL Normal 0-130 [facility] Work Phone: Cholesterol in VLDL mass conc 29 mg/dL Normal 5-40 [facility] Work Phone: Cholesterol mass conc 123 mg/dL Normal Com prehensive Internal Medicine Work Phone: Comment on above: <200 mg/dL Desirable 200-240 mg/dL Borderline >240 mg/dL High Risk Triglyceride mass conc 144 mg/dL Normal [facility] Work Phone: Comment on above: Serum Triglycerides Reference Interval Normal <150 mg/dL Borderline high 150 - 199 mg/dL High 200 - 499 mg/dL Very High > or = 500 mg/dL PSA,TOT SCREENOrdered By: [employer] stem Department Director on 07-05-2006 Prostate specific Ag mass conc 1.47 ng/mL Normal 0.00-4.00 [facility] Work Phone: Comment on above: This test was perfor med using the TPSA method for the[employer] chemistry system.Values obtained with different assay methods cannot be usedinterchangably.When changing PSA assays in the course of monitoring apatient, additionaly sequential testing should be carriedout to confirm baseline values. TSHOrdered By: System Manage r on 07-05-2006 Thyrotropin Qn 1.15 {uIU/mL} Normal 0.34-4.82 Compreh ensive Internal Medicine Work Phone: Vital Signs Date Time Vital Sign Value Performing Clinician Facility 02-15-2025 09:00-0400 Body height 177.[address] Shane Schreiber MD Work Phone: [facility] 02-15-2025 09:00-0400 Body mass index (BMI) [Ratio] 32.3 kg/m2 Dr. Shane Schreiber MD Work Phone: [facility] 02-15-2025 09:00-0400 Body weight 102.[address] Shane Schreiber MD Work Phone: [facility] 02-15-2025 09:00-0400 Diastolic blood pressure 67 mm[Hg] Dr. Shane Schreiber MD Work Phone: [facility] 02-15-2025 09:00-0400 Heart rate 71 /min Dr. Shane Schreiber MD Work Phone: [facility] 02-15-2025 09:00-0400 Respiratory rate 16 /min Dr. Shane Schreiber MD Work Phone: [facility] 02-15-2025 09:00-0400 Systolic blood pressure 106 mm[Hg] Dr. Shane Schreiber MD Work Phone: [facility] 01-26-2025 10:41-0400 Body height 177.[address] Shane Schreiber MD Work Phone: [facility] 01-26-2025 10:41-0400 Body mass index (BMI) [Ratio] 32.4 kg/m2 Dr. Shane Schreiber MD Work Phone: [facility] 01-26-2025 10:41-0400 Body temperature 96.1 [degF] Dr. Shane Schreiber MD Work Phone: [facility] 01-26-2025 10:41-0400 Body weight 102.[address] Shane Schreiber MD Work Phone: [facility] 01-26-2025 10:41-0400 Diastolic blood pressure 64 mm[Hg] Dr. Shane Schreiber MD Work Phone: [facility] 01-26-2025 10:41-0400 Heart rate 71 /min Dr. Shane Schreiber MD Work Phone: [facility] 01-26-2025 10:41-0400 Respiratory rate 16 /min Dr. Shane Schreiber MD Work Phone: [facility] 01-26-2025 10:41-0400 SaO2% (BldA) [Mass fraction] 96 % Dr. Shane Schreiber MD Work Phone: [facility] 01-26-2025 10:41-0400 Systolic blood pressure 110 mm[Hg] Dr. Shane Schreiber MD Work Phone: [facility] 12-13-2024 09:46-0400 Body height 177.8 cm Pacc 1 Work Phone: [facility] 12-13-2024 09:46-0400 Body mass index (BMI) [Ratio] 31.42 kg/m2 Pacc 1 Work Phone: [facility] 12-13-2024 09:46-0400 Body temperature 96.91 [degF] Pacc 1 Work Phone: [facility] 12-13-2024 09:46-0400 Body weight 99.34 kg Pacc 1 Work Phone: [facility] 12-13-2024 09:46-0400 Diastolic blood pressure 84 mm[Hg] Pacc 1 Work Phone: [facility] 12-13-2024 09:46-0400 Heart rate 85 /min Pacc 1 Work Phone: [facility] 12-13-2024 09:46-0400 Respiratory rate 16 /min Pacc 1 Work Phone: [facility] 12-13-2024 09:46-0400 SaO2% (BldA) [Mass fraction] 98 % Pacc 1 Work Phone: [facility] 12-13-2024 09:46-0400 Systolic blood pressure 128 mm[Hg] Pacc 1 Work Phone: [facility] 10-13-2024 09:26-0400 Body height 177.[address] Shane Schreiber MD Work Phone: [facility] 10-13-2024 09:26-0400 Body mass index (BMI) [Ratio] 31 kg/m2 Dr. Shane Schreiber MD Work Phone: [facility] 10-13-2024 09:26-0400 Body temperature 96.5 [degF] Dr. Shane Schreiber MD Work Phone: [facility] 10-13-2024 09:26-0400 Body weight 98.[address] Shane Schreiber MD Work Phone: [facility] 10-13-2024 09:26-0400 Diastolic blood pressure 76 mm[Hg] Dr. Shane Schreiber MD Work Phone: [facility] 10-13-2024 09:26-0400 Heart rate 83 /min Dr. Shane Schreiber MD Work Phone: [facility] 10-13-2024 09:26-0400 Respiratory rate 16 /min Dr. Shane Schreiber MD Work Phone: [facility] 10-13-2024 09:26-0400 SaO2% (BldA) [Mass fraction] 91 % Dr. Shane Schreiber MD Work Phone: [facility] 10-13-2024 09:26-0400 Systolic blood pressure 120 mm[Hg] Dr. Shane Schreiber MD Work Phone: [facility] 08-25-2024 08:41-0500 Body height 177.8 cm Pacc 1 Work Phone: [facility] 08-25-2024 08:41-0500 Body mass index (BMI) [Ratio] 31.57 kg/m2 Pacc 1 Work Phone: [facility] 08-25-2024 08:41-0500 Body temperature 96.91 [degF] Pacc 1 Work Phone: [facility] [facility] 08-25-2024 08:41-0500 Body weight 99.79 kg Pacc 1 Work Phone: [facility] 08-25-2024 08:41-0500 Diastolic blood pressure 70 mm[Hg] Pacc 1 Work Phone: [facility] 08-25-2024 08:41-0500 Heart rate 74 /min Pacc 1 Work Phone: [facility] 08-25-2024 08:41-0500 Respiratory rate 16 /min Pacc 1 Work Phone: [facility] 08-25-2024 08:41-0500 SaO2% (BldA) [Mass fraction] 95 % Pacc 1 Work Phone: [facility] 08-25-2024 08:41-0500 Systolic blood pressure 108 mm[Hg] Pacc 1 Work Phone: [facility] 08-23-2024 08:41-0500 Body mass index (BMI) [Ratio] 31.5 kg/m2 Dr. Shane Schreiber MD Work Phone: [facility] 08-23-2024 08:41-0500 Body weight 99.[address] Shane Schreiber MD Work Phone: [facility] 08-23-2024 08:41-0500 Diastolic blood pressure 85 mm[Hg] Dr. Shane Schreiber MD Work Phone: [facility] 08-23-2024 08:41-0500 Heart rate 92 /min Dr. Shane Schreiber MD Work Phone: [facility] 08-23-2024 08:41-0500 Respiratory rate 18 /min Dr. Shane Schreiber MD Work Phone: [facility] 08-23-2024 08:41-0500 SaO2% (BldA) [Mass fraction] 98 % Dr. Shane Schreiber MD Work Phone: [facility] 08-23-2024 08:41-0500 Systolic blood pressure 138 mm[Hg] Dr. Shane Schreiber MD Work Phone: [facility] 07-15-2024 15:17-0500 Body height 177.[address] Shane Schreiber MD Work Phone: [facility] 07-15-2024 15:17-0500 Body mass index (BMI) [Ratio] 32.8 kg/m2 Dr. Shane Schreiber MD Work Phone: [facility] 07-15-2024 15:17-0500 Body temperature 97.2 [degF] Dr. Shane Schreiber MD Work Phone: [facility] 07-15-2024 15:17-0500 Body weight 103.[address] Shane Schreiber MD Work Phone: [facility] 07-15-2024 15:17-0500 Diastolic blood pressure 82 mm[Hg] Dr. Shane Schreiber MD Work Phone: [facility] 07-15-2024 15:17-0500 Heart rate 88 /min Dr. Shane Schreiber MD Work Phone: [facility] 07-15-2024 15:17-0500 Respiratory rate 16 /min Dr. Shane Schreiber MD Work Phone: [facility] 07-15-2024 15:17-0500 SaO2% (BldA) [Mass fraction] 99 % Dr. Shane Schreiber MD Work Phone: [facility] 07-15-2024 15:17-0500 Systolic blood pressure 138 mm[Hg] Dr. Shane Schreiber MD Work Phone: [facility] 09-09-2023 11:27-0500 Body height 177.[address] Shane Schreiber Work Phone: [facility] 09-09-2023 11:27-0500 Body mass index (BMI) [Ratio] 32.5 kg/m2 Dr. Shane Schreiber Work Phone: [facility] 09-09-2023 11:27-0500 Body weight 102.[address] Shane Schreiber Work Phone: [facility] 09-09-2023 11:27-0500 Diastolic blood pressure 69 mm[Hg] Dr. Shane Schreiber Work Phone: [facility] 09-09-2023 11:27-0500 Heart rate 82 /min Dr. Shane Schreiber Work Phone: [facility] 09-09-2023 11:27-0500 Respiratory rate 18 /min Dr. Shane Schreiber Work Phone: [facility] 09-09-2023 11:27-0500 Systolic blood pressure 118 mm[Hg] Dr. Shane Schreiber Work Phone: [facility] 08-29-2023 09:01-0500 Body mass index (BMI) [Ratio] 32.1 kg/m2 Dr. Shane Schreiber Work Phone: [facility] 08-29-2023 09:01-0500 Body temperature 98 [degF] Dr. Shane Schreiber Work Phone: [facility] 08-29-2023 09:01-0500 Body weight 101.[address] Shane Schreiber Work Phone: [facility] 08-29-2023 09:01-0500 Diastolic blood pressure 78 mm[Hg] Dr. Shane Schreiber Work Phone: [facility] 08-29-2023 09:01-0500 Heart rate 89 /min Dr. Shane Schreiber Work Phone: [facility] 08-29-2023 09:01-0500 Respiratory rate 16 /min Dr. Shane Schreiber Work Phone: [facility] 08-29-2023 09:01-0500 SaO2% (BldA) [Mass fraction] 99 % Dr. Shane Schreiber Work Phone: [facility] 08-29-2023 09:01-0500 Systolic blood pressure 118 mm[Hg] Dr. Shane Schreiber Work Phone: [facility] 05-28-2023 08:25-0500 Body height 177.[address] Shane Schreiber Work Phone: [facility] 05-28-2023 08:25-0500 Body mass index (BMI) [Ratio] 34.1 kg/m2 Dr. Shane Schreiber Work Phone: [facility] 05-28-2023 08:25-0500 Body temperature 97.9 [degF] Dr. Shane Schreiber Work Phone: [facility] 05-28-2023 08:25-0500 Body weight 107.[address] Shane Schreiber Work Phone: [facility] 05-28-2023 08:25-0500 Diastolic blood pressure 74 mm[Hg] Dr. Shane Schreiber Work Phone: [facility] 05-28-2023 08:25-0500 Heart rate 86 /min Dr. Shane Schreiber Work Phone: [facility] 05-28-2023 08:25-0500 Respiratory rate 16 /min Dr. Shane Schreiber Work Phone: [facility] 05-28-2023 08:25-0500 SaO2% (BldA) [Mass fraction] 99 % Dr. Shane Schreiber Work Phone: [facility] 05-28-2023 08:25-0500 Systolic blood pressure 132 mm[Hg] Dr. Shane Schreiber Work Phone: [facility] 03-07-2023 09:14-0400 Body height 177.[address] Shane Schreiber Work Phone: [facility] 03-07-2023 09:14-0400 Body mass index (BMI) [Ratio] 33.7 kg/m2 Dr. Shane Schreiber Work Phone: [facility] 03-07-2023 09:14-0400 Body weight 106.[address] Shane Schreiber Work Phone: [facility] 03-07-2023 09:14-0400 Diastolic blood pressure 84 mm[Hg] Dr. Shane Schreiber Work Phone: [facility] 03-07-2023 09:14-0400 Heart rate 84 /min Dr. Shane Schreiber Work Phone: [facility] 03-07-2023 09:14-0400 Respiratory rate 16 /min Dr. Shane Schreiber Work Phone: [facility] 03-07-2023 09:14-0400 Systolic blood pressure 125 mm[Hg] Dr. Shane Schreiber Work Phone: [facility] 03-07-2023 09:08-0400 Body mass index (BMI) [Ratio] 33.7 kg/m2 Dr. Shane Schreiber Work Phone: [facility] 03-07-2023 09:08-0400 Body weight 106.[address] Shane Schreiber Work Phone: [facility] 03-07-2023 09:08-0400 Diastolic blood pressure 84 mm[Hg] Dr. Shane Schreiber Work Phone: [facility] 03-07-2023 09:08-0400 Heart rate 84 /min Dr. Shane Schreiber Work Phone: [facility] 03-07-2023 09:08-0400 Respiratory rate 16 /min Dr. Shane Schreiber Work Phone: [facility] 03-07-2023 09:08-0400 Systolic blood pressure 125 mm[Hg] Dr. Shane Schreiber Work Phone: [facility] 02-24-2023 09:58-0400 Body mass index (BMI) [Ratio] 33.7 kg/m2 Dr. Shane Schreiber Work Phone: [facility] 02-24-2023 09:58-0400 Body temperature 96.4 [degF] Dr. Shane Schreiber Work Phone: [facility] 02-24-2023 09:58-0400 Body weight 106.[address] Shane Schreiber Work Phone: [facility] 02-24-2023 09:58-0400 Diastolic blood pressure 80 mm[Hg] Dr. Shane Schreiber Work Phone: [facility] 02-24-2023 09:58-0400 Heart rate 82 /min Dr. Shane Schreiber Work Phone: [facility] 02-24-2023 09:58-0400 Respiratory rate 18 /min Dr. Shane Schreiber Work Phone: [facility] 02-24-2023 09:58-0400 SaO2% (BldA) [Mass fraction] 98 % Dr. Shane Schreiber Work Phone: [facility] 02-24-2023 09:58-0400 Systolic blood pressure 150 mm[Hg] Dr. Shane Schreiber Work Phone: [facility] 11-22-2022 10:36-0400 Body height 177.[address] Shane Schreiber Work Phone: [facility] 11-22-2022 10:36-0400 Body mass index (BMI) [Ratio] 33.3 kg/m2 Dr. Shane Schreiber Work Phone: [facility] 11-22-2022 10:36-0400 Body temperature 98.9 [degF] Dr. Shane Schreiber Work Phone: [facility] 11-22-2022 10:36-0400 Body weight 105.[address] Shane Schreiber Work Phone: [facility] 11-22-2022 10:36-0400 Diastolic blood pressure 78 mm[Hg] Dr. Shane Schreiber Work Phone: [facility] 11-22-2022 10:36-0400 Heart rate 90 /min Dr. Shane Schreiber Work Phone: [facility] 11-22-2022 10:36-0400 Respiratory rate 16 /min Dr. Shane Schreiber Work Phone: [facility] 11-22-2022 10:36-0400 SaO2% (BldA) [Mass fraction] 98 % Dr. Shane Schreiber Work Phone: [facility] 11-22-2022 10:36-0400 Systolic blood pressure 112 mm[Hg] Dr. Shane Schreiber Work Phone: [facility] 08-23-2022 08:04-0500 Body height 25.[address] Shane Schreiber Work Phone: [facility] 08-23-2022 08:04-0500 Body mass index (BMI) [Ratio] 970.1 kg/m2 Dr. Shane Schreiber Work Phone: [facility] 08-23-2022 08:04-0500 Body temperature 97.3 [degF] Dr. Shane Schreiber Work Phone: [facility] 08-23-2022 08:04-0500 Body weight 62.[address] Shane Schreiber Work Phone: [facility] 08-23-2022 08:04-0500 Diastolic blood pressure 78 mm[Hg] Dr. Shane Schreiber Work Phone: [facility] 08-23-2022 08:04-0500 Heart rate 82 /min Dr. Shane Schreiber Work Phone: [facility] 08-23-2022 08:04-0500 Respiratory rate 18 /min Dr. Shane Schreiber Work Phone: [facility] 08-23-2022 08:04-0500 SaO2% (BldA) [Mass fraction] 97 % Dr. Shane Schreiber Work Phone: [facility] 08-23-2022 08:04-0500 Systolic blood pressure 138 mm[Hg] Dr. Shane Schreiber Work Phone: [facility] 08-12-2022 08:26-0500 Body mass index (BMI) [Ratio] 33.7 kg/m2 Dr. Shane Schreiber Work Phone: [facility] 08-12-2022 08:26-0500 Body weight 106.[address] Shane Schreiber Work Phone: [facility] 08-12-2022 08:26-0500 Diastolic blood pressure 81 mm[Hg] Dr. Shane Schreiber Work Phone: [facility] 08-12-2022 08:26-0500 Heart rate 71 /min Dr. Shane Schreiber Work Phone: [facility] 08-12-2022 08:26-0500 Respiratory rate 20 /min Dr. Shane Schreiber Work Phone: [facility] 08-12-2022 08:26-0500 SaO2% (BldA) [Mass fraction] 98 % Dr. Shane Schreiber Work Phone: [facility] 08-12-2022 08:26-0500 Systolic blood pressure 164 mm[Hg] Dr. Shane Schreiber Work Phone: [facility] 05-29-2022 08:09-0500 Body temperature 97.4 [degF] Dr. Shane Schreiber Work Phone: [facility] 05-29-2022 08:09-0500 Body weight 111.[address] Shane Schreiber Work Phone: [facility] 05-29-2022 08:09-0500 Diastolic blood pressure 82 mm[Hg] Dr. Shane Schreiber Work Phone: [facility] 05-29-2022 08:09-0500 Heart rate 80 /min Dr. Shane Schreiber Work Phone: [facility] 05-29-2022 08:09-0500 Respiratory rate 18 /min Dr. Shane Schreiber Work Phone: [facility] 05-29-2022 08:09-0500 SaO2% (BldA) [Mass fraction] 97 % Dr. Shane Schreiber Work Phone: [facility] 05-29-2022 08:09-0500 Systolic blood pressure 122 mm[Hg] Dr. Shane Schreiber Work Phone: [facility] 03-25-2022 08:20-0400 Body height 177.[address] Shane Schreiber Work Phone: [facility] Work Phone: 03-25-2022 08:20-0400 Body mass index (BMI) [Ratio] 34.5 kg/m2 Dr. Shane Schreiber Work Phone: [facility] Work Phone: 03-25-2022 08:20-0400 Body temperature 97 [degF] Dr. Shane Schreiber Work Phone: [facility] Work Phone: 03-25-2022 08:20-0400 Body weight 109.[address] Shane Schreiber Work Phone: [facility] Work Phone: 03-25-2022 08:20-0400 Diastolic blood pressure 82 mm[Hg] Dr. Shane Schreiber Work Phone: [facility] Work Phone: 03-25-2022 08:20-0400 Heart rate 71 /min Dr. Shane Schreiber Work Phone: [facility] Work Phone: 03-25-2022 08:20-0400 Respiratory rate 16 /min Dr. Shane Schreiber Work Phone: [facility] Work Phone: 03-25-2022 08:20-0400 SaO2% (BldA) [Mass fraction] 99 % Dr. Shane Schreiber Work Phone: [facility] Work Phone: 03-25-2022 08:20-0400 Systolic blood pressure 138 mm[Hg] Dr. Shane Schreiber Work Phone: [facility] Work Phone: 02-19-2022 10:36-0400 Body mass index (BMI) [Ratio] 34.5 kg/m2 Dr. Shane Schreiber Work Phone: [facility] Work Phone: 02-19-2022 10:36-0400 Body temperature 98.3 [degF] Dr. Shane Schreiber Work Phone: [facility] Work Phone: 02-19-2022 10:36-0400 Body weight 109.[address] Shane Schreiber Work Phone: [facility] Work Phone: 02-19-2022 10:36-0400 Diastolic blood pressure 82 mm[Hg] Dr. Shane Schreiber Work Phone: [facility] Work Phone: 02-19-2022 10:36-0400 Heart rate 81 /min Dr. Shane Schreiber Work Phone: [facility] Work Phone: 02-19-2022 10:36-0400 Respiratory rate 14 /min Dr. Shane Schreiber Work Phone: [facility] Work Phone: 02-19-2022 10:36-0400 SaO2% (BldA) [Mass fraction] 98 % Dr. Shane Schreiber Work Phone: [facility] Work Phone: 02-19-2022 10:36-0400 Systolic blood pressure 132 mm[Hg] Dr. Shane Schreiber Work Phone: [facility] Work Phone: 01-31-2022 08:31-0400 Body height 177.[address] Shane Schreiber Work Phone: [facility] Work Phone: 01-31-2022 08:31-0400 Body mass index (BMI) [Ratio] 34.5 kg/m2 Dr. Shane Schreiber Work Phone: [facility] Work Phone: 01-31-2022 08:31-0400 Body weight 109.[address] Shane Schreiber Work Phone: [facility] Work Phone: 01-31-2022 08:31-0400 Diastolic blood pressure 84 mm[Hg] Dr. Shane Schreiber Work Phone: [facility] Work Phone: 01-31-2022 08:31-0400 Heart rate 79 /min Dr. Shane Schreiber Work Phone: [facility] Work Phone: 01-31-2022 08:31-0400 Respiratory rate 18 /min Dr. Shane Schreiber Work Phone: [facility] Work Phone: 01-31-2022 08:31-0400 SaO2% (BldA) [Mass fraction] 97 % Dr. Shane Schreiber Work Phone: [facility] Work Phone: 01-31-2022 08:31-0400 Systolic blood pressure 141 mm[Hg] Dr. Shane Schreiber Work Phone: [facility] Work Phone: 11-19-2021 09:12-0400 Body height 177.[address] Shane Schreiber Work Phone: [facility] Work Phone: 11-19-2021 09:12-0400 Body mass index (BMI) [Ratio] 34.5 kg/m2 Dr. Shane Schreiber Work Phone: [facility] Work Phone: 11-19-2021 09:12-0400 Body temperature 96.5 [degF] Dr. Shane Schreiber Work Phone: [facility] Work Phone: 11-19-2021 09:12-0400 Body weight 109.[address] Shane Schreiber Work Phone: [facility] Work Phone: 11-19-2021 09:12-0400 Diastolic blood pressure 80 mm[Hg] Dr. Shane Schreiber Work Phone: [facility] Work Phone: 11-19-2021 09:12-0400 Heart rate 79 /min Dr. Shane Schreiber Work Phone: [facility] Work Phone: 11-19-2021 09:12-0400 Respiratory rate 18 /min Dr. Shane Schreiber Work Phone: [facility] Work Phone: 11-19-2021 09:12-0400 SaO2% (BldA) [Mass fraction] 99 % Dr. Shane Schreiber Work Phone: [facility] Work Phone: 11-19-2021 09:12-0400 Systolic blood pressure 130 mm[Hg] Dr. Shane Schreiber Work Phone: [facility] Work Phone: 11-19-2021 09:12-0400 Body height 177.[address] Shane Schreiber Work Phone: [facility] Work Phone: 11-19-2021 09:12-0400 Body mass index (BMI) [Ratio] 34.5 kg/m2 Dr. Shane Schreiber Work Phone: [facility] Work Phone: 11-19-2021 09:12-0400 Body temperature 96.5 [degF] Dr. Shane Schreiber Work Phone: [facility] Work Phone: 11-19-2021 09:12-0400 Body weight 109.[address] Shane Schreiber Work Phone: [facility] Work Phone: 11-19-2021 09:12-0400 Diastolic blood pressure 80 mm[Hg] Dr. Shane Schreiber Work Phone: [facility] Work Phone: 11-19-2021 09:12-0400 Heart rate 79 /min Dr. Shane Schreiber Work Phone: [facility] Work Phone: 11-19-2021 09:12-0400 Respiratory rate 18 /min Dr. Shane Schreiber Work Phone: [facility] Work Phone: 11-19-2021 09:12-0400 SaO2% (BldA) [Mass fraction] 99 % Dr. Shane Schreiber Work Phone: [facility] Work Phone: 11-19-2021 09:12-0400 Systolic blood pressure 130 mm[Hg] Dr. Shane Schreiber Work Phone: [facility] Work Phone: 11-16-2018 15:14-0400 BMI (Body Mass Index) 31.73 kg/m2 Lola Fast [facility] Work Phone: 11-16-2018 15:14-0400 Body Temperature 98.2 [degF] [facility] Work Phone: Comment on above: Method: Temporal 11-16-2018 15:14-0400 Body weight 98.88 kg Lola Fast [facility] Work Phone: 11-16-2018 15:14-0400 BP Diastolic 76 mm[Hg] Lola [facility] Work Phone: Comment on above: Patient Position: Sitting; Cuff Location : Left Arm; Cuff Size: Standard 11-16-2018 15:14-0400 BP Systolic 122 mm[Hg] Lola [facility] Work Phone: Comment on above: Patient Position: Sitting; Cuff Location : Left Arm; Cuff Size: Standard 11-16-2018 15:14-0400 BSA (Body Surface Area) 2.15 m2 Lola [facility] Work Phone: 11-16-2018 15:14-0400 Height 176.53 cm Lola [facility] Work Phone: 11-16-2018 15:14-0400 Pulse (Heart Rate) 84 /min L[facility] Work Phone: Comment on above: Pattern: Regular 11-16-2018 15:14-0400 Respiratory Rate 16 /min L[facility] Work Phone: Comment on above: Pattern: Unlabored 08-24-2018 07:58-0500 BMI (Body Mass Index) 34.35 kg/m2 Lola Marco [facility] Work Phone: 08-24-2018 07:58-0500 Body Temperature 98.7 [degF] Lola Fast [facility] Work Phone: Comment on above: Method: Temporal 08-24-2018 07:58-0500 Body weight 107.05 kg Lola [facility] Work Phone: 08-24-2018 07:58-0500 BP Diastolic 82 mm[Hg] Lola Fast [facility] Work Phone: Comment on above: Patient Position: Sitting; Cuff Location : Left Arm; Cuff Size: Standard 08-24-2018 07:58-0500 BP Systolic 145 mm[Hg] L[facility] Work Phone: Comment on above: Patient Position: Sitting; Cuff Location : Left Arm; Cuff Size: Standard 08-24-2018 07:58-0500 BSA (Body Surface Area) 2.23 m2 L[facility] Work Phone: 08-24-2018 07:58-0500 Height 176.53 cm Lola Fast [facility] Work Phone: 08-24-2018 07:58-0500 Pulse (Heart Rate) 93 /min L[facility] Work Phone: Comment on above: Pattern: Regular 08-24-2018 07:58-0500 Pulse Oximetry 97 % L[facility] Work Phone: Comment on above: Room air 08-24-2018 07:58-0500 Respiratory Rate 17 /min L[facility] Work Phone: Comment on above: Pattern: Unlabored 08-24-2018 07:58-0500 Weight 107.05 kg L[facility] Work Phone: 02-09-2018 07:57-0400 BMI (Body Mass Index) 32.82 kg/m2 Lola Fast [facility] Work Phone: 02-09-2018 07:57-0400 Body Temperature 98 [degF] L[facility] Work Phone: Comment on above: Method: Temporal 02-09-2018 07:57-0400 Body weight 102.29 kg L[facility] Work Phone: 02-09-2018 07:57-0400 BP Diastolic 80 mm[Hg] L[facility] Work Phone: Comment on above: Patient Position: Sitting; Cuff Location : Left Arm; Cuff Size: Standard 02-09-2018 07:57-0400 BP Systolic 142 mm[Hg] [facility] Work Phone: Comment on above: Patient Position: Sitting; Cuff Location : Left Arm; Cuff Size: Standard 02-09-2018 07:57-0400 BSA (Body Surface Area) 2.19 m2 L[facility] Work Phone: 02-09-2018 07:57-0400 Height 176.53 cm L[facility] Work Phone: 02-09-2018 07:57-0400 Pulse (Heart Rate) 84 /min [facility] Work Phone: Comment on above: Pattern: Regular 02-09-2018 07:57-0400 Respiratory Rate 16 /min L[facility] Work Phone: Comment on above: Pattern: Unlabored 02-09-2018 07:57-0400 Weight 102.29 kg L[facility] Work Phone: 09-05-2017 07:23-0500 BMI (Body Mass Index) 32.09 kg/m2 Lola Fast [facility] Work Phone: 09-05-2017 07:23-0500 Body Temperature 99.2 [degF] L[facility] Work Phone: 09-05-2017 07:23-0500 Body weight 100.02 kg L[facility] Work Phone: 09-05-2017 07:23-0500 BP Diastolic 86 mm[Hg] [facility] Work Phone: Comment on above: Patient Position: Sitting; Cuff Location : Left Arm; Cuff Size: Standard 09-05-2017 07:23-0500 BP Systolic 158 mm[Hg] [facility] Work Phone: Comment on above: Patient Position: Sitting; Cuff Location : Left Arm; Cuff Size: Standard 09-05-2017 07:23-0500 BSA (Body Surface Area) 2.16 m2 [facility] Work Phone: 09-05-2017 07:23-0500 Height 176.53 cm L[facility] Work Phone: 09-05-2017 07:23-0500 Pulse (Heart Rate) 96 /min [facility] Work Phone: Comment on above: Pattern: Regular 09-05-2017 07:23-0500 Pulse Oximetry 95 % [facility] Work Phone: Comment on above: Room air 09-05-2017 07:23-0500 Respiratory Rate 18 /min [facility] Work Phone: Comment on above: Pattern: Unlabored 09-05-2017 07:23-0500 Weight 100.02 kg L[facility] Work Phone: 05-16-2017 07:03-0400 BMI (Body Mass Index) 31.51 kg/m2 Lola Fast [facility] Work Phone: 05-16-2017 07:03-0400 Body Temperature 97.2 [degF] L[facility] Fast [facility] Work Phone: Comment on above: Method: Temporal 05-16-2017 07:03-0400 Body weight 98.2 kg L[facility] Work Phone: 05-16-2017 07:03-0400 BP Diastolic 80 mm[Hg] L[facility] Work Phone: Comment on above: Patient Position: Standing; Cuff Locatio n: Left Arm; Cuff Size: Large 05-16-2017 07:03-0400 BP Systolic 136 mm[Hg] [facility] Work Phone: Comment on above: Patient Position: Standing; Cuff Locatio n: Left Arm; Cuff Size: Large 05-16-2017 07:03-0400 BSA (Body Surface Area) 2.15 m2 [facility] Work Phone: 05-16-2017 07:03-0400 Height 176.53 cm L[facility] Work Phone: 05-16-2017 07:03-0400 Pulse (Heart Rate) 94 /min [facility] Work Phone: Comment on above: Pattern: Regular 05-16-2017 07:03-0400 Pulse Oximetry 95 % [facility] Work Phone: Comment on above: Room air 05-16-2017 07:03-0400 Respiratory Rate 18 /min [facility] Work Phone: Comment on above: Pattern: Unlabored 05-16-2017 07:03-0400 Weight 98.2 kg L[facility] Work Phone: 02-11-2017 08:15-0400 BMI (Body Mass Index) 30.57 kg/m2 Lola Fast [facility] Work Phone: 02-11-2017 08:15-0400 Body Temperature 97.4 [degF] L[facility] Work Phone: Comment on above: Method: Temporal 02-11-2017 08:15-0400 Body weight 95.26 kg L[facility] Work Phone: 02-11-2017 08:15-0400 BP Diastolic 78 mm[Hg] [facility] Work Phone: Comment on above: Patient Position: Sitting; Cuff Location : Left Arm; Cuff Size: Standard 02-11-2017 08:15-0400 BP Systolic 130 mm[Hg] [facility] Work Phone: Comment on above: Patient Position: Sitting; Cuff Location : Left Arm; Cuff Size: Standard 02-11-2017 08:15-0400 BSA (Body Surface Area) 2.12 m2 [facility] Work Phone: 02-11-2017 08:15-0400 Height 176.53 cm L[facility] Work Phone: 02-11-2017 08:15-0400 Pulse (Heart Rate) 86 /min [facility] Work Phone: Comment on above: Pattern: Regular 02-11-2017 08:15-0400 Pulse Oximetry 96 % [facility] Work Phone: Comment on above: Room air 02-11-2017 08:15-0400 Respiratory Rate 17 /min L[facility] Work Phone: Comment on above: Pattern: Unlabored 02-11-2017 08:15-0400 Weight 95.26 kg L[facility] Work Phone: 10-01-2016 09:00-0400 BMI (Body Mass Index) 31.29 kg/m2 Lola Fast [facility] Work Phone: 10-01-2016 09:00-0400 Body Temperature 97.2 [degF] L[facility] Work Phone: Comment on above: Method: Temporal 10-01-2016 09:00-0400 Body weight 97.52 kg L[facility] Work Phone: 10-01-2016 09:00-0400 BP Diastolic 82 mm[Hg] L[facility] Work Phone: Comment on above: Patient Position: Sitting; Cuff Location : Left Arm; Cuff Size: Standard 10-01-2016 09:00-0400 BP Systolic 136 mm[Hg] L[facility] Work Phone: Comment on above: Patient Position: Sitting; Cuff Location : Left Arm; Cuff Size: Standard 10-01-2016 09:00-0400 BSA (Body Surface Area) 2.14 m2 L[facility] Work Phone: 10-01-2016 09:00-0400 Height 176.53 cm Lola [facility] Work Phone: 10-01-2016 09:00-0400 Pulse (Heart Rate) 82 /min Lola [facility] Work Phone: Comment on above: Pattern: Regular 10-01-2016 09:00-0400 Pulse Oximetry 99 % Lola [facility] Work Phone: Comment on above: Room air 10-01-2016 09:00-0400 Respiratory Rate 16 /min L[facility] Work Phone: Comment on above: Pattern: Unlabored 10-01-2016 09:00-0400 Weight 97.52 kg L[facility] Work Phone: 07-31-2016 09:49-0500 BMI (Body Mass Index) 33.19 kg/m2 Lola [facility] Work Phone: 07-31-2016 09:49-0500 Body Temperature 98.5 [degF] L[facility] Work Phone: Comment on above: Method: Oral 07-31-2016 09:49-0500 Body weight 103.42 kg Lola [facility] Work Phone: 07-31-2016 09:49-0500 BP Diastolic 70 mm[Hg] Lola [facility] Work Phone: Comment on above: Patient Position: Sitting; Cuff Location : Left Arm; Cuff Size: Standard 07-31-2016 09:49-0500 BP Systolic 148 mm[Hg] [facility] Work Phone: Comment on above: Patient Position: Sitting; Cuff Location : Left Arm; Cuff Size: Standard 07-31-2016 09:49-0500 BSA (Body Surface Area) 2.2 m2 [facility] Work Phone: 07-31-2016 09:49-0500 Height 176.53 cm [facility] Work Phone: 07-31-2016 09:49-0500 Pulse (Heart Rate) 80 /min [facility] Work Phone: Comment on above: Pattern: Regular 07-31-2016 09:49-0500 Respiratory Rate 16 /min [facility] Work Phone: Comment on above: Pattern: Unlabored 07-31-2016 09:49-0500 Weight 103.42 kg [facility] Work Phone: 06-18-2016 11:31-0500 BMI (Body Mass Index) 33.77 kg/m2 [facility] Work Phone: 06-18-2016 11:31-0500 Body Temperature 98 [degF] [facility] Work Phone: 06-18-2016 11:31-0500 Body weight 105.24 kg [facility] Work Phone: 06-18-2016 11:31-0500 BP Diastolic 88 mm[Hg] [facility] Work Phone: Comment on above: Patient Position: Sitting; Cuff Location : Left Arm; Cuff Size: Standard 06-18-2016 11:31-0500 BP Systolic 148 mm[Hg] Lola [facility] Work Phone: Comment on above: Patient Position: Sitting; Cuff Location : Left Arm; Cuff Size: Standard 06-18-2016 11:31-0500 BSA (Body Surface Area) 2.21 m2 Lola [facility] Work Phone: 06-18-2016 11:31-0500 Height 176.53 cm Lola [facility] Work Phone: 06-18-2016 11:31-0500 Pulse (Heart Rate) 77 /min L[facility] Work Phone: Comment on above: Pattern: Regular 06-18-2016 11:31-0500 Pulse Oximetry 98 % L[facility] Work Phone: Comment on above: Room air 06-18-2016 11:31-0500 Respiratory Rate 16 /min L[facility] Work Phone: Comment on above: Pattern: Unlabored 06-18-2016 11:31-0500 Weight 105.24 kg Lola [facility] Work Phone: 2015 08:36-0500 BMI (Body Mass Index) 32.46 kg/m2 Lola [facility] Work Phone: 2015 08:36-0500 Body Temperature 98.1 [degF] Lola [facility] Work Phone: Comment on above: Method: Temporal 2015 08:36-0500 Body weight 101.15 kg Lola [facility] Work Phone: 2015 08:36-0500 BP Diastolic 80 mm[Hg] L[facility] Work Phone: Comment on above: Patient Position: Sitting; Cuff Location : Left Arm; Cuff Size: Large 2015 08:36-0500 BP Systolic 112 mm[Hg] L[facility] Work Phone: Comment on above: Patient Position: Sitting; Cuff Location : Left Arm; Cuff Size: Large 2015 08:36-0500 BSA (Body Surface Area) 2.17 m2 Lola [facility] Work Phone: 2015 08:36-0500 Height 176.53 cm Lola [facility] Work Phone: 2015 08:36-0500 Pulse (Heart Rate) 65 /min L[facility] Work Phone: Comment on above: Pattern: Regular 2015 08:36-0500 Pulse Oximetry 98 % L[facility] Work Phone: Comment on above: Room air 2015 08:36-0500 Respiratory Rate 15 /min L[facility] Work Phone: Comment on above: Pattern: Unlabored 2015 08:36-0500 Weight 101.15 kg Lola [facility] Work Phone: 05-10-2015 15:33-0400 BMI (Body Mass Index) 35.08 kg/m2 Lola [facility] Work Phone: 05-10-2015 15:33-0400 Body Temperature 96.6 [degF] Lola [facility] Work Phone: Comment on above: Method: Temporal 05-10-2015 15:33-0400 Body weight 109.32 kg Lola [facility] Work Phone: 05-10-2015 15:33-0400 BP Diastolic 72 mm[Hg] Lola [facility] Work Phone: Comment on above: Patient Position: Sitting; Cuff Location : Left Arm; Cuff Size: Large 05-10-2015 15:33-0400 BP Systolic 128 mm[Hg] Lola [facility] Work Phone: Comment on above: Patient Position: Sitting; Cuff Location : Left Arm; Cuff Size: Large 05-10-2015 15:33-0400 BSA (Body Surface Area) 2.25 m2 Lola [facility] Work Phone: 05-10-2015 15:33-0400 Height 176.53 cm Lola [facility] Work Phone: 05-10-2015 15:33-0400 Pulse (Heart Rate) 77 /min Lola [facility] Work Phone: Comment on above: Pattern: Regular 05-10-2015 15:33-0400 Pulse Oximetry 98 % Lola [facility] Work Phone: Comment on above: Room air 05-10-2015 15:33-0400 Respiratory Rate 16 /min Lola [facility] Work Phone: Comment on above: Pattern: Unlabored 05-10-2015 15:33-0400 Weight 109.32 kg Lola [facility] Work Phone: 12-23-2014 07:25-0400 BMI (Body Mass Index) 34.93 kg/m2 Lola [facility] Work Phone: 12-23-2014 07:25-0400 Body Temperature 98 [degF] L[facility] Work Phone: Comment on above: Method: Oral 12-23-2014 07:25-0400 Body weight 108.86 kg Lola [facility] Work Phone: 12-23-2014 07:25-0400 BP Diastolic 70 mm[Hg] Lola [facility] Work Phone: Comment on above: Patient Position: Sitting; Cuff Location : Left Arm; Cuff Size: Standard 12-23-2014 07:25-0400 BP Systolic 130 mm[Hg] Lola [facility] Work Phone: Comment on above: Patient Position: Sitting; Cuff Location : Left Arm; Cuff Size: Standard 12-23-2014 07:25-0400 BSA (Body Surface Area) 2.24 m2 Lola [facility] Work Phone: 12-23-2014 07:25-0400 Height 176.53 cm Lola [facility] Work Phone: 12-23-2014 07:25-0400 Pulse (Heart Rate) 68 /min Lola [facility] Work Phone: Comment on above: Pattern: Regular 12-23-2014 07:25-0400 Respiratory Rate 16 /min Lola [facility] Work Phone: Comment on above: Pattern: Unlabored 12-23-2014 07:25-0400 Weight 108.86 kg Lola [facility] Work Phone: 08-15-2014 13:30-0500 BMI (Body Mass Index) 35.66 kg/m2 Lola [facility] Work Phone: 08-15-2014 13:30-0500 Body Temperature 97.5 [degF] L[facility] Work Phone: Comment on above: Method: Oral 08-15-2014 13:30-0500 Body weight 111.13 kg Lola [facility] Work Phone: 08-15-2014 13:30-0500 BP Diastolic 68 mm[Hg] Lola [facility] Work Phone: Comment on above: Patient Position: Sitting; Cuff Location : Left Arm; Cuff Size: Standard 08-15-2014 13:30-0500 BP Systolic 128 mm[Hg] Lola [facility] Work Phone: Comment on above: Patient Position: Sitting; Cuff Location : Left Arm; Cuff Size: Standard 08-15-2014 13:30-0500 BSA (Body Surface Area) 2.26 m2 Lola [facility] Work Phone: 08-15-2014 13:30-0500 Height 176.53 cm L[facility] Work Phone: 08-15-2014 13:30-0500 Pulse (Heart Rate) 72 /min Lola [facility] Work Phone: Comment on above: Pattern: Regular 08-15-2014 13:30-0500 Respiratory Rate 16 /min Lola [facility] Work Phone: Comment on above: Pattern: Unlabored 08-15-2014 13:30-0500 Weight 111.13 kg Lola [facility] Work Phone: 02-08-2014 08:07-0400 BMI (Body Mass Index) 34.79 kg/m2 Lola [facility] Work Phone: 02-08-2014 08:07-0400 Body Temperature 98.1 [degF] Lola [facility] Work Phone: 02-08-2014 08:07-0400 Body weight 108.41 kg Lola [facility] Work Phone: 02-08-2014 08:07-0400 BP Diastolic 64 mm[Hg] Lola [facility] Work Phone: Comment on above: Patient Position: Sitting; Cuff Location : Left Arm; Cuff Size: Large 02-08-2014 08:07-0400 BP Systolic 118 mm[Hg] Lola [facility] Work Phone: Comment on above: Patient Position: Sitting; Cuff Location : Left Arm; Cuff Size: Large 02-08-2014 08:07-0400 BSA (Body Surface Area) 2.24 m2 Lola [facility] Work Phone: 02-08-2014 08:07-0400 Height 176.53 cm Lola [facility] Work Phone: 02-08-2014 08:07-0400 Pulse (Heart Rate) 68 /min Lola [facility] Work Phone: Comment on above: Pattern: Regular 02-08-2014 08:07-0400 Respiratory Rate 16 /min Lola [facility] Work Phone: Comment on above: Pattern: Unlabored 02-08-2014 08:07-0400 Weight 108.41 kg Lola [facility] Work Phone: 08-20-2013 07:25-0500 BMI (Body Mass Index) 34.06 kg/m2 Lola [facility] Work Phone: 08-20-2013 07:25-0500 Body Temperature 97.8 [degF] Lola [facility] Work Phone: 08-20-2013 07:25-0500 Body weight 106.14 kg Lola [facility] Work Phone: 08-20-2013 07:25-0500 BP Diastolic 82 mm[Hg] [facility] Work Phone: Comment on above: Patient Position: Sitting; Cuff Location : Left Arm; Cuff Size: Large 08-20-2013 07:25-0500 BP Systolic 126 mm[Hg] [facility] Work Phone: Comment on above: Patient Position: Sitting; Cuff Location : Left Arm; Cuff Size: Large 08-20-2013 07:25-0500 BSA (Body Surface Area) 2.22 m2 [facility] Work Phone: 08-20-2013 07:25-0500 Height 176.53 cm [facility] Work Phone: 08-20-2013 07:25-0500 Pulse (Heart Rate) 62 /min [facility] Work Phone: Comment on above: Pattern: Regular 08-20-2013 07:25-0500 Respiratory Rate 18 /min [facility] Work Phone: Comment on above: Pattern: Unlabored 08-20-2013 07:25-0500 Weight 106.14 kg [facility] Work Phone: 05-10-2013 09:43-0400 BMI (Body Mass Index) 34.79 kg/m2 Lola Lara [facility] Work Phone: 05-10-2013 09:43-0400 Body Temperature 97.4 [degF] [facility] Work Phone: 05-10-2013 09:43-0400 Body weight 108.41 kg [facility] Work Phone: 05-10-2013 09:43-0400 BP Diastolic 84 mm[Hg] [facility] Work Phone: Comment on above: Patient Position: Sitting; Cuff Location : Left Arm; Cuff Size: Large 05-10-2013 09:43-0400 BP Systolic 136 mm[Hg] [facility] Work Phone: Comment on above: Patient Position: Sitting; Cuff Location : Left Arm; Cuff Size: Large 05-10-2013 09:43-0400 BSA (Body Surface Area) 2.24 m2 Lola [facility] Work Phone: 05-10-2013 09:43-0400 Height 176.53 cm Lola [facility] Work Phone: 05-10-2013 09:43-0400 Pulse (Heart Rate) 62 /min [facility] Work Phone: Comment on above: Pattern: Regular 05-10-2013 09:43-0400 Respiratory Rate 18 /min Lola [facility] Work Phone: Comment on above: Pattern: Unlabored 05-10-2013 09:43-0400 Weight 108.41 kg [facility] Work Phone: 01-04-2013 09:02-0400 BMI (Body Mass Index) 36.1 kg/m2 [facility] Work Phone: 01-04-2013 09:02-0400 Body Temperature 98.8 [degF] [facility] Work Phone: 01-04-2013 09:02-0400 Body weight 112.49 kg [facility] Work Phone: 01-04-2013 09:02-0400 BP Diastolic 84 mm[Hg] [facility] Work Phone: Comment on above: Patient Position: Sitting; Cuff Location : Left Arm; Cuff Size: Large 01-04-2013 09:02-0400 BP Systolic 132 mm[Hg] Lola [facility] Work Phone: Comment on above: Patient Position: Sitting; Cuff Location : Left Arm; Cuff Size: Large 01-04-2013 09:02-0400 BSA (Body Surface Area) 2.28 m2 Lola [facility] Work Phone: 01-04-2013 09:02-0400 Height 176.53 cm [facility] Work Phone: 01-04-2013 09:02-0400 Pulse (Heart Rate) 84 /min Lola [facility] Work Phone: Comment on above: Pattern: Regular 01-04-2013 09:02-0400 Respiratory Rate 16 /min Lola [facility] Work Phone: Comment on above: Pattern: Unlabored 01-04-2013 09:02-0400 Weight 112.49 kg Lola [facility] Work Phone: 09-01-2012 08:29-0500 BMI (Body Mass Index) 37.12 kg/m2 Lola Marco [facility] Work Phone: 09-01-2012 08:29-0500 Body Temperature 97.5 [degF] Lola [facility] Work Phone: 09-01-2012 08:29-0500 Body weight 115.67 kg [facility] Work Phone: 09-01-2012 08:29-0500 BP Diastolic 92 mm[Hg] Lola [facility] Work Phone: Comment on above: Patient Position: Sitting; Cuff Location : Left Arm; Cuff Size: Large 09-01-2012 08:29-0500 BP Systolic 150 mm[Hg] Lola [facility] Work Phone: Comment on above: Patient Position: Sitting; Cuff Location : Left Arm; Cuff Size: Large 09-01-2012 08:29-0500 BSA (Body Surface Area) 2.3 m2 Lola [facility] Work Phone: 09-01-2012 08:29-0500 Height 176.53 cm Lola [facility] Work Phone: 09-01-2012 08:29-0500 Pulse (Heart Rate) 80 /min Lola [facility] Work Phone: Comment on above: Pattern: Regular 09-01-2012 08:29-0500 Respiratory Rate 18 /min Lola [facility] Work Phone: Comment on above: Pattern: Unlabored 09-01-2012 08:29-0500 Weight 115.67 kg Lola [facility] Work Phone: 06-26-2012 12:38-0500 BMI (Body Mass Index) 36.68 kg/m2 Lola [facility] Work Phone: 06-26-2012 12:38-0500 Body Temperature 96.7 [degF] Lola [facility] Work Phone: 06-26-2012 12:38-0500 Body weight 114.31 kg Lloa [facility] Work Phone: 06-26-2012 12:38-0500 BP Diastolic 88 mm[Hg] Lola [facility] Work Phone: Comment on above: Patient Position: Sitting; Cuff Location : Left Arm; Cuff Size: Large 06-26-2012 12:38-0500 BP Systolic 126 mm[Hg] Lola [facility] Work Phone: Comment on above: Patient Position: Sitting; Cuff Location : Left Arm; Cuff Size: Large 06-26-2012 12:38-0500 BSA (Body Surface Area) 2.29 m2 Lola [facility] Work Phone: 06-26-2012 12:38-0500 Height 176.53 cm Lola [facility] Work Phone: 06-26-2012 12:38-0500 Pulse (Heart Rate) 86 /min Lola [facility] Work Phone: Comment on above: Pattern: Regular 06-26-2012 12:38-0500 Respiratory Rate 18 /min Lola [facility] Work Phone: Comment on above: Pattern: Unlabored 06-26-2012 12:38-0500 Weight 114.31 kg Lola [facility] Work Phone: 04-28-2012 10:42-0400 BMI (Body Mass Index) 37.12 kg/m2 Lola [facility] Work Phone: 04-28-2012 10:42-0400 Body Temperature 98.2 [degF] Lola [facility] Work Phone: 04-28-2012 10:42-0400 Body weight 115.67 kg Lola [facility] Work Phone: 04-28-2012 10:42-0400 BP Diastolic 90 mm[Hg] Lola [facility] Work Phone: Comment on above: Patient Position: Sitting; Cuff Location : Left Arm; Cuff Size: Large 04-28-2012 10:42-0400 BP Systolic 120 mm[Hg] Lola [facility] Work Phone: Comment on above: Patient Position: Sitting; Cuff Location : Left Arm; Cuff Size: Large 04-28-2012 10:42-0400 BSA (Body Surface Area) 2.3 m2 Lola [facility] Work Phone: 04-28-2012 10:42-0400 Height 176.53 cm [facility] Work Phone: 04-28-2012 10:42-0400 Pulse (Heart Rate) 80 /min Lola [facility] Work Phone: Comment on above: Pattern: Regular 04-28-2012 10:42-0400 Respiratory Rate 18 /min Lola [facility] Work Phone: Comment on above: Pattern: Unlabored 04-28-2012 10:42-0400 Weight 115.67 kg Lola [facility] Work Phone: 01-07-2012 08:53-0400 BMI (Body Mass Index) 36.24 kg/m2 Lola [facility] Work Phone: 01-07-2012 08:53-0400 Body Temperature 99.1 [degF] Lola [facility] Work Phone: 01-07-2012 08:53-0400 Body weight 112.95 kg Lola [facility] Work Phone: 01-07-2012 08:53-0400 BP Diastolic 76 mm[Hg] Lola [facility] Work Phone: Comment on above: Patient Position: Sitting; Cuff Location : Left Arm; Cuff Size: Large 01-07-2012 08:53-0400 BP Systolic 122 mm[Hg] [facility] Work Phone: Comment on above: Patient Position: Sitting; Cuff Location : Left Arm; Cuff Size: Large 01-07-2012 08:53-0400 BSA (Body Surface Area) 2.28 m2 [facility] Work Phone: 01-07-2012 08:53-0400 Height 176.53 cm [facility] Work Phone: 01-07-2012 08:53-0400 Pulse (Heart Rate) 84 /min [facility] Work Phone: Comment on above: Pattern: Regular 01-07-2012 08:53-0400 Respiratory Rate 18 /min [facility] Work Phone: Comment on above: Pattern: Unlabored 01-07-2012 08:53-0400 Weight 112.95 kg [facility] Work Phone: 09-10-2011 08:29-0500 BMI (Body Mass Index) 35.22 kg/m2 [facility] Work Phone: 09-10-2011 08:29-0500 Body Temperature 97.7 [degF] [facility] Work Phone: 09-10-2011 08:29-0500 Body weight 109.77 kg [facility] Work Phone: 09-10-2011 08:29-0500 BP Diastolic 84 mm[Hg] [facility] Work Phone: Comment on above: Patient Position: Sitting; Cuff Location : Left Arm; Cuff Size: Large 09-10-2011 08:29-0500 BP Systolic 126 mm[Hg] [facility] Work Phone: Comment on above: Patient Position: Sitting; Cuff Location : Left Arm; Cuff Size: Large 09-10-2011 08:29-0500 BSA (Body Surface Area) 2.25 m2 [facility] Work Phone: 09-10-2011 08:29-0500 Height 176.53 cm Lola [facility] Work Phone: 09-10-2011 08:29-0500 Pulse (Heart Rate) 78 /min Lola [facility] Work Phone: Comment on above: Pattern: Regular 09-10-2011 08:29-0500 Respiratory Rate 16 /min Lola [facility] Work Phone: Comment on above: Pattern: Unlabored 09-10-2011 08:29-0500 Weight 109.77 kg Lola [facility] Work Phone: 07-31-2010 10:39-0500 Body Temperature 98.2 [degF] Lola [facility] Work Phone: 07-31-2010 10:39-0500 Body weight 104.33 kg Lola [facility] Work Phone: 07-31-2010 10:39-0500 BP Diastolic 66 mm[Hg] L[facility] Work Phone: Comment on above: Patient Position: Sitting; Cuff Location : Left Arm; Cuff Size: Large 07-31-2010 10:39-0500 BP Systolic 110 mm[Hg] Lola [facility] Work Phone: Comment on above: Patient Position: Sitting; Cuff Location : Left Arm; Cuff Size: Large 07-31-2010 10:39-0500 Pulse (Heart Rate) 80 /min Lola [facility] Work Phone: Comment on above: Pattern: Regular 07-31-2010 10:39-0500 Respiratory Rate 18 /min Lola [facility] Work Phone: Comment on above: Pattern: Unlabored 07-31-2010 10:39-0500 Weight 104.33 kg Lola [facility] Work Phone: 02-23-2010 09:21-0400 Body Temperature 97.1 [degF] L[facility] Work Phone: 02-23-2010 09:21-0400 Body weight 101.61 kg Lola [facility] Work Phone: 02-23-2010 09:21-0400 BP Diastolic 82 mm[Hg] Lola [facility] Work Phone: Comment on above: Patient Position: Sitting; Cuff Location : Left Arm; Cuff Size: Standard 02-23-2010 09:21-0400 BP Systolic 128 mm[Hg] Lola [facility] Work Phone: Comment on above: Patient Position: Sitting; Cuff Location : Left Arm; Cuff Size: Standard 02-23-2010 09:21-0400 Pulse (Heart Rate) 84 /min Lola [facility] Work Phone: Comment on above: Pattern: Regular 02-23-2010 09:21-0400 Respiratory Rate 18 /min Lola [facility] Work Phone: Comment on above: Pattern: Unlabored 02-23-2010 09:21-0400 Weight 101.61 kg Lola [facility] Work Phone: 11-24-2009 13:24-0400 Body Temperature 97.2 [degF] Lola [facility] Work Phone: Comment on above: Method: Oral 11-24-2009 13:24-0400 Body weight 113.4 kg Lola [facility] Work Phone: 11-24-2009 13:24-0400 BP Diastolic 70 mm[Hg] Lola [facility] Work Phone: Comment on above: Patient Position: Sitting; Cuff Location : Left Arm; Cuff Size: Large 11-24-2009 13:24-0400 BP Systolic 104 mm[Hg] L[facility] Work Phone: Comment on above: Patient Position: Sitting; Cuff Location : Left Arm; Cuff Size: Large 11-24-2009 13:24-0400 Pulse (Heart Rate) 68 /min L[facility] Work Phone: Comment on above: Pattern: Regular 11-24-2009 13:24-0400 Respiratory Rate 20 /min Lola [facility] Work Phone: Comment on above: Pattern: Unlabored 11-24-2009 13:24-0400 Weight 113.4 kg Lola [facility] Work Phone: 08-01-2009 07:58-0500 Body Temperature 97.1 [degF] L[facility] Work Phone: 08-01-2009 07:58-0500 Body weight 117.03 kg Lola [facility] Work Phone: 08-01-2009 07:58-0500 BP Diastolic 72 mm[Hg] Lola [facility] Work Phone: Comment on above: Patient Position: Sitting; Cuff Location : Left Arm; Cuff Size: Large 08-01-2009 07:58-0500 BP Systolic 126 mm[Hg] Lola [facility] Work Phone: Comment on above: Patient Position: Sitting; Cuff Location : Left Arm; Cuff Size: Large 08-01-2009 07:58-0500 Pulse (Heart Rate) 88 /min Lola [facility] Work Phone: Comment on above: Pattern: Regular 08-01-2009 07:58-0500 Respiratory Rate 18 /min [facility] Work Phone: Comment on above: Pattern: Unlabored 08-01-2009 07:58-0500 Weight 117.03 kg [facility] Work Phone: 04-07-2009 13:19-0400 Body Temperature 97 [degF] [facility] Work Phone: Comment on above: Method: Undefined 04-07-2009 13:19-0400 Body weight 112.95 kg [facility] Work Phone: 04-07-2009 13:19-0400 BP Diastolic 72 mm[Hg] [facility] Work Phone: Comment on above: Patient Position: Sitting; Cuff Location : Left Arm; Cuff Size: Large 04-07-2009 13:19-0400 BP Systolic 110 mm[Hg] [facility] Work Phone: Comment on above: Patient Position: Sitting; Cuff Location : Left Arm; Cuff Size: Large 04-07-2009 13:0400 Head Circumference 0 cm [facility] Work Phone: 04-07-2009 13:0400 Height 0 cm [facility] Work Phone: 04-07-2009 13:19-0400 Pulse (Heart Rate) 76 /min [facility] Work Phone: Comment on above: Pattern: Regular 04-07-2009 13:-0400 Respiratory Rate 18 /min [facility] Work Phone: Comment on above: Pattern: Undefined 04-07-2009 13:19-0400 Weight 112.95 kg [facility] Work Phone: 11-15-2008 08:19-0400 Body Temperature 97.8 [degF] [facility] Work Phone: Comment on above: Method: Undefined 11-15-2008 08:-0400 Body weight 113.4 kg [facility] Work Phone: 11-15-2008 08:19-0400 BP Diastolic 80 mm[Hg] [facility] Work Phone: Comment on above: Patient Position: Sitting; Cuff Location : Left Arm; Cuff Size: Large 11-15-2008 08:19-0400 BP Systolic 112 mm[Hg] [facility] Work Phone: Comment on above: Patient Position: Sitting; Cuff Location : Left Arm; Cuff Size: Large 11-15-2008 08:19-0400 Head Circumference 0 cm [facility] Work Phone: 11-15-2008 08:-0400 Height 0 cm [facility] Work Phone: 11-15-2008 08:19-0400 Pulse (Heart Rate) 76 /min [facility] Work Phone: Comment on above: Pattern: Regular 11-15-2008 08:19-0400 Respiratory Rate 16 /min [facility] Work Phone: Comment on above: Pattern: Undefined 11-15-2008 08:19-0400 Weight 113.4 kg [facility] Work Phone: 08-16-2008 08:10-0500 Body Temperature 97 [degF] [facility] Work Phone: Comment on above: Method: Oral 08-16-2008 08:10-0500 Body weight 117.17 kg [facility] Work Phone: 08-16-2008 08:10-0500 BP Diastolic 76 mm[Hg] [facility] Work Phone: Comment on above: Patient Position: Sitting; Cuff Location : Right Arm; Cuff Size: Large 08-16-2008 08:10-0500 BP Systolic 122 mm[Hg] [facility] Work Phone: Comment on above: Patient Position: Sitting; Cuff Location : Right Arm; Cuff Size: Large 08-16-2008 08:10-0500 Head Circumference 0 cm [facility] Work Phone: 08-16-2008 08:10-0500 Height 0 cm [facility] Work Phone: 08-16-2008 08:10-0500 Pulse (Heart Rate) 72 /min [facility] Work Phone: Comment on above: Pattern: Regular 08-16-2008 08:10-0500 Respiratory Rate 18 /min [facility] Work Phone: Comment on above: Pattern: Unlabored 08-16-2008 08:10-0500 Weight 117.17 kg [facility] Work Phone: 05-06-2008 11:57-0400 Body Temperature 97.7 [degF] [facility] Work Phone: Comment on above: Method: Undefined 05-06-2008 11:57-0400 Body weight 122.47 kg [facility] Work Phone: 05-06-2008 11:57-0400 BP Diastolic 96 mm[Hg] [facility] Work Phone: Comment on above: Patient Position: Sitting; Cuff Location : Right Arm; Cuff Size: Standard 05-06-2008 11:57-0400 BP Systolic 140 mm[Hg] [facility] Work Phone: Comment on above: Patient Position: Sitting; Cuff Location : Right Arm; Cuff Size: Standard 05-06-2008 11:57-0400 Head Circumference 0 cm [facility] Work Phone: 05-06-2008 11:57-0400 Height 0 cm [facility] Work Phone: 05-06-2008 11:57-0400 Pulse (Heart Rate) 76 /min [facility] Work Phone: Comment on above: Pattern: Regular 05-06-2008 11:57-0400 Respiratory Rate 18 /min [facility] Work Phone: Comment on above: Pattern: Undefined 05-06-2008 11:57-0400 Weight 122.47 kg [facility] Work Phone: 01-01-2008 07:51-0400 Body Temperature 98.3 [degF] [facility] Work Phone: Comment on above: Method: Undefined 01-01-2008 07:51-0400 Body weight 121.56 kg [facility] Work Phone: 01-01-2008 07:51-0400 BP Diastolic 94 mm[Hg] [facility] Work Phone: Comment on above: Patient Position: Sitting; Cuff Location : Right Arm; Cuff Size: Standard 01-01-2008 07:51-0400 BP Systolic 136 mm[Hg] [facility] Work Phone: Comment on above: Patient Position: Sitting; Cuff Location : Right Arm; Cuff Size: Standard 01-01-2008 07:51-0400 Head Circumference 0 cm [facility] Work Phone: 01-01-2008 07:51-0400 Height 0 cm [facility] Work Phone: 01-01-2008 07:51-0400 Pulse (Heart Rate) 76 /min [facility] Work Phone: Comment on above: Pattern: Regular 01-01-2008 07:51-0400 Respiratory Rate 20 /min [facility] Work Phone: Comment on above: Pattern: Undefined 01-01-2008 07:51-0400 Weight 121.56 kg [facility] Work Phone: 09-15-2007 08:26-0500 Body Temperature 98.4 [degF] [facility] Work Phone: Comment on above: Method: Oral 09-15-2007 08:26-0500 Body weight 122.93 kg [facility] Work Phone: 09-15-2007 08:26-0500 BP Diastolic 80 mm[Hg] [facility] Work Phone: Comment on above: Patient Position: Sitting; Cuff Location : Left Arm; Cuff Size: Large 09-15-2007 08:26-0500 BP Systolic 124 mm[Hg] [facility] Work Phone: Comment on above: Patient Position: Sitting; Cuff Location : Left Arm; Cuff Size: Large 09-15-2007 08:26-0500 Head Circumference 0 cm [facility] Work Phone: 09-15-2007 08:26-0500 Height 0 cm [facility] Work Phone: 09-15-2007 08:26-0500 Pulse (Heart Rate) 80 /min [facility] Work Phone: Comment on above: Pattern: Regular 09-15-2007 08:26-0500 Respiratory Rate 18 /min [facility] Work Phone: Comment on above: Pattern: Undefined 09-15-2007 08:26-0500 Weight 122.93 kg [facility] Work Phone: 06-12-2007 09:55-0500 Body Temperature 98.2 [degF] [facility] Work Phone: Comment on above: Method: Oral 06-12-2007 09:55-0500 Body weight 123.38 kg [facility] Work Phone: 06-12-2007 09:55-0500 BP Diastolic 92 mm[Hg] [facility] Work Phone: Comment on above: Patient Position: Standing; Cuff Locatio n: Right Arm; Cuff Size: Large 06-12-2007 09:55-0500 BP Systolic 138 mm[Hg] [facility] Work Phone: Comment on above: Patient Position: Standing; Cuff Locatio n: Right Arm; Cuff Size: Large 06-12-2007 09:55-0500 Head Circumference 0 cm [facility] Work Phone: 06-12-2007 09:55-0500 Height 0 cm [facility] Work Phone: 06-12-2007 09:55-0500 Pulse (Heart Rate) 84 /min [facility] Work Phone: Comment on above: Pattern: Regular 06-12-2007 09:55-0500 Respiratory Rate 16 /min [facility] Work Phone: Comment on above: Pattern: Unlabored 06-12-2007 09:55-0500 Weight 123.38 kg [facility] Work Phone: 01-26-2007 10:32-0400 BMI (Body Mass Index) 38.59 kg/m2 [facility] Work Phone: 01-26-2007 10:32-0400 Body Temperature 97.9 [degF] [facility] Work Phone: Comment on above: Method: Oral 01-26-2007 10:32-0400 Body weight 121.11 kg [facility] Work Phone: 01-26-2007 10:32-0400 BP Diastolic 74 mm[Hg] [facility] Work Phone: Comment on above: Patient Position: Sitting; Cuff Location : Left Arm; Cuff Size: Standard 01-26-2007 10:32-0400 BP Systolic 120 mm[Hg] [facility] Work Phone: Comment on above: Patient Position: Sitting; Cuff Location : Left Arm; Cuff Size: Standard 01-26-2007 10:32-0400 BSA (Body Surface Area) 2.35 m2 [facility] Work Phone: 01-26-2007 10:32-0400 Head Circumference 0 cm [facility] Work Phone: 01-26-2007 10:32-0400 Height 177.16 cm [facility] Work Phone: 01-26-2007 10:32-0400 Pulse (Heart Rate) 72 /min [facility] Work Phone: Comment on above: Pattern: Regular 01-26-2007 10:32-0400 Respiratory Rate 16 /min [facility] Work Phone: Comment on above: Pattern: Unlabored 01-26-2007 10:32-0400 Weight 121.11 kg L[facility] Work Phone: 08-19-2006 08:24-0500 Body Temperature 96.9 [degF] [facility] Work Phone: Comment on above: Method: Oral 08-19-2006 08:24-0500 Body weight 123.89 kg L[facility] Work Phone: 08-19-2006 08:24-0500 BP Diastolic 76 mm[Hg] [facility] Work Phone: Comment on above: Patient Position: Sitting; Cuff Location : Left Arm; Cuff Size: Large 08-19-2006 08:24-0500 BP Systolic 134 mm[Hg] [facility] Work Phone: Comment on above: Patient Position: Sitting; Cuff Location : Left Arm; Cuff Size: Large 08-19-2006 08:24-0500 Head Circumference 0 cm [facility] Work Phone: 08-19-2006 08:24-0500 Height 0 cm [facility] Work Phone: 08-19-2006 08:24-0500 Pulse (Heart Rate) 84 /min [facility] Work Phone: Comment on above: Pattern: Regular 08-19-2006 08:24-0500 Respiratory Rate 18 /min [facility] Work Phone: Comment on above: Pattern: Unlabored 08-19-2006 08:24-0500 Weight 123.89 kg [facility] Work Phone: 07-18-2006 09:54-0500 BMI (Body Mass Index) 37.64 kg/m2 [facility] Work Phone: 07-18-2006 09:54-0500 Body Temperature 98.3 [degF] [facility] Work Phone: Comment on above: Method: Oral 07-18-2006 09:54-0500 Body weight 118.98 kg [facility] Work Phone: 07-18-2006 09:54-0500 BP Diastolic 88 mm[Hg] [facility] Work Phone: Comment on above: Patient Position: Sitting; Cuff Location : Right Arm; Cuff Size: Large 07-18-2006 09:54-0500 BP Systolic 138 mm[Hg] [facility] Work Phone: Comment on above: Patient Position: Sitting; Cuff Location : Right Arm; Cuff Size: Large 07-18-2006 09:54-0500 BSA (Body Surface Area) 2.34 m2 [facility] Work Phone: 07-18-2006 09:54-0500 Head Circumference 0 cm [facility] Work Phone: 07-18-2006 09:54-0500 Height 177.8 cm [facility] Work Phone: 07-18-2006 09:54-0500 Pulse (Heart Rate) 84 /min [facility] Work Phone: Comment on above: Pattern: Regular 07-18-2006 09:54-0500 Respiratory Rate 20 /min [facility] Work Phone: Comment on above: Pattern: Unlabored 07-18-2006 09:54-0500 Weight 118.98 kg [facility] Work Phone: Encounters Encounter Date Encounter Type Care Provider Facility Start: 02-28-2025 End: 02-28-[address] Shane Schreiber MD Work Phone: -[facility] Start: 02-28-2025 End: 02-28-[address] Dante Hilliard MD -[facility] Work Phone: Start: 02-18-2025 End: 02-18-[address] Shane Schreiber MD Work Phone: [facility] Start: 02-18-2025 End: 02-18-[address] Dante Hilliard MD -[facility] Work Phone: Start: 02-15-2025 End: 02-15-2025 Patient encounter procedure Memo JONES -[facility] Work Phone: Start: 02-15-2025 End: 02-15-[address] Shane Schreiber MD Work Phone: -[facility] Start: 02-14-2025 End: 02-14-[address] Shane Schreiber MD Work Phone: -[facility] Start: 02-14-2025 End: 02-14-[address] Marj Poe MD -[facility] Start: 02-14-2025 End: 02-14-2025 ambulatory Marj Poe Facility:[facility] Start: 02-10-2025 End: 02-10-[address] Shane Schreiber MD Work Phone: -[facility] Start: 02-10-2025 End: 02-10-[address] Marj Poe MD -[facility] Start: 02-10-2025 End: 02-10-2025 ambulatory Marj Poe Facility:[facility] Start: 01-28-2025 End: 01-28-[address] Shane Schreiber MD Work Phone: -[facility] Start: 01-28-2025 End: 01-28-[address] Dante Hilliard MD -[facility] Work Phone: Start: 01-26-2025 End: 01-26-[address] Shane Schreiber MD -[facility] Work Phone: Start: 01-26-2025 End: 01-26-[address] Shane Schreiber MD Work Phone: -[facility] Start: 01-21-2025 End: 01-21-[address] Shane Schreiber MD Work Phone: -[facility] Start: 01-20-2025 End: 01-21-2025 Patient encounter procedure Franklin Tony OD Work Phone: Ophthalmology Comment on above: Combined forms of ag e-related cataract of both eyes (Primary Dx); Pseudophakia; Other optic atrophy, bilateral; Type 2 diabetes mellitus without retinopathy (HCC); Epiretinal membrane (ERM) of both eyes; Posterior vitreous detachment of both eyes Start: 01-20-2025 End: 01-20-2025 ambulatory SHANE SCHREIBER Facility:[facility] Start: 12-27-2024 End: 12-27-2024 Patient encounter procedure Franklin Tony OD Work Phone: Ophthalmology Comment on above: Combined forms of ag e-related cataract of both eyes (Primary Dx); Pseudophakia; Other optic atrophy, bilateral; Type 2 diabetes mellitus without retinopathy (HCC); Epiretinal membrane (ERM) of both eyes Start: 12-27-2024 End: 12-27-2024 ambulatory SHANE SCHREIBER Facility:[facility] Start: 12-24-2024 End: 12-24-[address] Dante Hilliard MD -[facility] Work Phone: Start: 12-23-2024 End: 12-25-2024 Refill Johan Jimenez MD Work Phone: [address] [place] [address] Comment on above: Refill Request Start: 12-22-2024 End: 12-22-2024 Patient encounter procedure Johan Jimenez MD Work Phone: Ophthalmology Comment on above: Pseudophakia (Primar y Dx) Start: 12-22-2024 End: 12-22-2024 ambulatory JOHAN JIMENEZ Facility:[facility] Start: 12-21-2024 End: 12-21-2024 ambulatory JOHAN JIMENEZ Facility:[facility] Start: 12-17-2024 End: 12-17-[address] Shane Schreiber MD Work Phone: [facility] Work Phone: Start: 12-17-2024 End: 12-17-[address] 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 Shane Schreiber MD Work Phone: [facility] Work Phone: Start: 12-10-2024 End: 12-10-[address] Dante Hilliard MD -[facility] Work Phone: Start: 12-06-2024 End: 12-06-[address] Shane Schreiber MD Work Phone: [facility] Work Phone: Start: 12-06-2024 End: 12-06-[address] Dante Hilliard MD -[facility] Work Phone: Start: 11-29-2024 End: 11-29-[address] Shane Schreiber MD Work Phone: [facility] Work Phone: Start: 11-29-2024 End: 11-29-[address] Dante Hilliard MD -[facility] Work Phone: Start: 10-13-2024 End: 10-13-[address] Shane Schreiber MD -[facility] Work Phone: Start: 10-13-2024 End: 10-13-[address] Shane Schreiber MD Work Phone: [facility] Work Phone: Start: 10-13-2024 End: 10-13-2024 ambulatory Shane Schreiber Facility:[facility] Start: 10-07-2024 End: 10-07-2024 ambulatory FRANKLIN TONY Facility:[facility] Start: 10-07-2024 End: 10-07-2024 Patient encounter procedure Franklin Tony OD Work Phone: Ophthalmology Comment on above: Pseudophakia (Primar y Dx); Squamous blepharitis of upper and lower eyelids of both eyes Start: 09-30-2024 End: 09-30-[address] Shane Schreiber MD Work Phone: [facility] Work Phone: Start: 09-30-2024 End: 09-30-2024 Patient encounter procedure Jocelyn Mendoza -[facility] [place] Start: 09-30-2024 End: 09-30-2024 ambulatory Jocelyn Mendoza Facility:[facility] Start: 09-22-2024 End: 09-22-2024 ambulatory JOHAN JIMENEZ Facility:[facility] Start: 09-22-2024 End: 09-22-2024 Patient encounter procedure Johan Jimenez MD Work Phone: Ophthalmology Comment on above: Pseudophakia (Primar y Dx); Visual distortions of shape and size; Epiretinal membrane (ERM) of both eyes Start: 09-13-2024 End: 09-13-2024 ambulatory JOHAN JIMENEZ Facility:[facility] Start: 09-13-2024 End: 09-13-2024 Patient encounter procedure Johan Jimenez MD Work Phone: [facility] Comment on above: Pseudophakia (Primar y Dx); Combined forms of age-related cataract of both eyes Start: 09-07-2024 End: 09-07-2024 ambulatory JOHAN JIMENEZ Facility:[facility] Start: 09-07-2024 End: 09-07-2024 Patient encounter procedure Johan Jimenez MD Work Phone: [facility] Comment on above: Pseudophakia (Primar y Dx) Start: 09-02-2024 End: 09-07-2024 Refill Johan Jimenez MD Work Phone: [facility] Comment on above: Refill Request Appointment (Surgery Arrival) Start: 08-30-2024 End: 08-30-2024 ambulatory Dante Hilliard Facility:[facility] Start: 08-30-2024 End: 08-30-[address] Dante Hilliard MD -[facility] Work Phone: Start: 08-25-2024 End: 08-25-2024 Admission to establishment [place] [id number] Work Phone: Pre Anesthesia Start: 08-25-2024 End: 08-25-2024 ambulatory JOHAN JIMENEZ Facility:[facility] Start: 08-25-2024 End: 08-25-2024 Anesthesia consultation [place] [id number] Work Phone: Pre Anesthesia Comment on above: Pre-operative examin ation (Primary Dx); Type 2 diabetes mellitus without retinopathy (HCC); BMI 31.0-31.9,adult; Chronic combined systolic and diastolic heart failure (HCC); Primary hypertension; Implantable cardioverter-defibrillator (ICD) in situ; Nonrheumatic mitral valve regurgitation; Pulmonary arterial hypertension (HCC); Hearing loss, unspecified hearing loss type, unspecified laterality; Chronic kidney disease, unspecified CKD stage; Malignant neoplasm of left kidney (HCC); Prostate cancer (HCC); Dyslipidemia; Bilateral carotid artery stenosis; Low platelet count (HCC) Start: 08-25-2024 End: 08-25-2024 Preprocedural examination done [place] [id number] Work Phone: [facility] Start: 08-23-2024 End: 08-23-2024 Patient encounter procedure Lorenza CLARK -[facility] Work Phone: Start: 08-23-2024 End: 08-23-2024 ambulatory Shane Schreiber Facility:[facility] Start: 08-19-2024 End: 08-19-2024 Refill Johan Jimenez MD Work Phone: [facility] Comment on above: Refill Request Start: 08-16-2024 End: 08-16-[address] Marj Poe MD -[facility], [facility] Start: 08-16-2024 End: 08-16-2024 ambulatory Marj Poe Facility:[facility] Start: 08-10-2024 End: 08-10-2024 ambulatory Dante Hilliard Facility:[facility] Start: 08-10-2024 End: 08-10-[address] Dante Hilliard MD -[facility] Work Phone: Start: 08-03-2024 End: 08-03-2024 ambulatory Dante Hilliard Facility:[facility] Start: 08-03-2024 End: 08-03-[address] Dante Hilliard MD -[facility] Work Phone: Start: 07-27-2024 End: 07-27-2024 ambulatory Dante Hilliard Facility:[facility] Start: 07-27-2024 End: 07-27-[address] Dante Hilliard MD -[facility] Work Phone: Start: 07-23-2024 End: 07-23-[address] Marj Poe MD -[facility], [place] Start: 07-23-2024 End: 07-23-2024 ambulatory Marj Poe Facility:[facility] Start: 07-21-2024 End: 07-21-2024 ambulatory JOHAN JIMENEZ Facility:[facility] Start: 07-21-2024 End: 07-21-2024 Patient encounter procedure Johan Jimenez MD Work Phone: Ophthalmology Comment on above: Combined forms of ag e-related cataract of both eyes (Primary Dx); Refractive error; Type 2 diabetes mellitus without retinopathy (HCC); Other optic atrophy, bilateral; Posterior vitreous detachment of both eyes; Dermatochalasis of both upper eyelids Start: 07-20-2024 End: 07-20-2024 ambulatory Dante Hilliard Facility:[facility] Start: 07-20-2024 End: 07-20-[address] Dante Hilliard MD -[facility] Work Phone: Start: 07-15-2024 End: 07-15-[address] Shane Schreiber MD -[facility] Work Phone: Start: 07-15-2024 End: 07-15-2024 ambulatory [facility] Facility:[facility] Start: 07-15-2024 End: 07-15-2024 ambulatory [facility] Facility:[facility] Start: 07-06-2024 End: 07-06-2024 ambulatory Dante Hilliard Facility:[facility] Start: 07-06-2024 End: 07-06-[address] Dante Hilliard MD -[facility] Work Phone: Start: 07-01-2024 End: 07-01-2024 ambulatory FRANKLIN TONY Facility:[facility] Start: 07-01-2024 End: 07-01-2024 Patient encounter procedure Franklin Tony OD Work Phone: Ophthalmology Comment on above: Type 2 diabetes yeimy itus without retinopathy (HCC) (Primary Dx); Other optic atrophy, bilateral; Combined forms of age-related cataract of both eyes; Epiretinal membrane (ERM) of both eyes; Refractive error; Posterior vitreous detachment of both eyes; Dermatochalasis of both upper eyelids Start: 06-22-2024 End: 06-22-2024 Patient encounter procedure Jocelyn Mendoza -[facility], [place] Start: 06-22-2024 End: 06-22-2024 ambulatory Jocelyn Mendoza Facility:[facility] Start: 06-15-2024 End: 06-15-2024 ambulatory Dante Hilliard Facility:[facility] Start: 06-15-2024 End: 06-15-[address] Dante Hilliard MD -[facility] Work Phone: Start: 05-31-2024 End: 05-31-2024 ambulatory Dante Hilliard Facility:[facility] Start: 04-29-2024 End: 04-29-2024 ambulatory [facility] Facility:[facility] Start: 04-12-2024 End: 04-12-2024 ambulatory Omerkel Hilliard Facility:[facility] Start: 03-01-2024 End: 03-01-2024 ambulatory Shane Schreiber Facility:[facility] Start: 03-01-2024 End: 03-01-2024 ambulatory Dante Babak Facility:[facility] Start: 09-09-2023 End: 09-09-[address] Shane Schreiber Work Phone: [facility] Work Phone: Start: 09-08-2023 End: 09-08-[address] Shane Schreiber Work Phone: [facility] Work Phone: Start: 09-08-2023 End: 09-08-[address] Shane Schreiber Work Phone: [facility], [place] Start: 09-05-2023 End: 09-05-[address] Shane Schreiber Work Phone: [facility] Work Phone: Start: 08-29-2023 End: 08-29-[address] Shane Schreiber Work Phone: [facility] Work Phone: Start: 08-29-2023 End: 08-29-[address] Shane Schreiber Work Phone: [facility] Work Phone: Start: 08-18-2023 End: 08-18-[address] Shane Schreiber Work Phone: [facility] Work Phone: Start: 08-18-2023 End: 08-18-[address] Shane Schreiber Work Phone: [facility], [place] Start: 06-16-2023 End: 06-16-[address] Shane Schreiber Work Phone: [facility] Work Phone: Start: 06-09-2023 End: 06-10-[address] Shane Schreiber Work Phone: [facility] Work Phone: Start: 05-30-2023 End: 05-30-[address] Shane Schreiber Work Phone: [facility] Work Phone: Start: 05-28-2023 End: 05-28-[address] Shane Schreiber Work Phone: [facility] Work Phone: Start: 05-28-2023 End: 05-28-[address] Shane Schreiber Work Phone: [facility] Work Phone: Start: 04-21-2023 End: 04-21-[address] Shane Schreiber Work Phone: [facility] Work Phone: Start: 04-21-2023 End: 04-21-[address] Shane Schreiber Work Phone: [facility], [place] Start: 03-07-2023 End: 03-07-[address] Shane Schreiber Work Phone: [facility] Work Phone: Start: 03-07-2023 Non-patient / Non-visit Dr. Kami Schreiber Work Phone: [facility] Work Phone: Start: 02-28-2023 End: 02-28-[address] Shane Schreiber Work Phone: [facility] Work Phone: Start: 02-24-2023 End: 02-24-[address] Shane Schreiber Work Phone: [facility] Work Phone: Start: 02-17-2023 End: 02-17-[address] Shane Schreiber Work Phone: [facility] Work Phone: Start: 02-17-2023 End: 02-17-[address] Shane Schreiber Work Phone: [facility], [place] Start: 01-21-2023 End: 01-21-[address] Shane Schreiber Work Phone: [facility] Work Phone: Start: 01-21-2023 End: 01-21-[address] Shane Schreiber Work Phone: [facility], [place] Start: 11-22-2022 End: 11-22-[address] Shane Schreiber Work Phone: [facility] Work Phone: Start: 11-20-2022 End: 11-20-[address] Shane Schreiber Work Phone: [facility] Work Phone: Start: 10-14-2022 End: 10-15-[address] MICHEL PRICE DPM Facility:[facility] Start: 10-14-2022 End: 10-14-[address] MICHEL PRICE DPM [facility] Start: 09-13-2022 End: 09-13-[address] Shane Schreiber Work Phone: [facility] Work Phone: Start: 09-13-2022 End: 09-13-[address] Shane Schreiber Work Phone: [facility], [facility] Start: 09-03-2022 End: 09-03-[address] Shane Schreiber Work Phone: [facility] Work Phone: Start: 09-03-2022 End: 09-03-[address] Shane Schreiber Work Phone: [facility], [place] Start: 08-23-2022 End: 08-23-[address] Shane Schreiber Work Phone: [facility] Start: 08-20-2022 Non-patient / Non-visit Dr. Kami Schreiber Work Phone: [facility] Start: 08-20-2022 End: 08-20-[address] Shane Schreiber Work Phone: [facility] Work Phone: Start: 08-20-2022 End: 08-20-[address] Shane Schreiber Work Phone: [facility] Start: 2022 End: [address] Shane Schreiber Work Phone: [facility] Start: 08-12-2022 End: 08-12-[address] Shane Schreiber Work Phone: [facility] Start: 07-24-2022 End: 07-24-[address] Shane Schreiber Work Phone: [facility] Work Phone: Start: 07-24-2022 End: 07-24-[address] Shane Schreiber Work Phone: [facility], [place] Start: 05-29-2022 End: 05-29-[address] Shane Schreiber Work Phone: [facility] Start: 05-24-2022 End: 05-24-[address] Shane Schreiber Work Phone: [facility] Work Phone: Start: 05-24-2022 End: 05-24-[address] Shane Schreiber Work Phone: [facility] Start: 05-10-2022 End: 05-10-[address] Shane Schreiber Work Phone: [facility] Start: 04-11-2022 End: 04-11-[address] Shane Schreiber Work Phone: [facility] Work Phone: Start: 04-11-2022 End: 04-11-[address] Shane Schreiber Work Phone: [facility], [place] Start: 03-25-2022 End: 03-25-[address] Shane Schreiber Work Phone: [facility] Start: 03-19-2022 End: 03-19-[address] 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 Shane Schreiber Work Phone: [facility] Start: 02-13-2022 End: 02-13-[address] Shane Schreiber Work Phone: [facility] Start: 01-31-2022 End: 01-31-[address] Shane Schreiber Work Phone: [facility] Start: 01-30-2022 End: 01-30-[address] Shane Schreiber Work Phone: [facility] Start: 01-23-2022 End: 01-23-[address] [facility] [place] Start: 12-17-2021 End: 12-17-[address] Shane Schreiber Work Phone: [facility], [place] Start: 11-19-2021 End: 11-19-[address] Shane Schreiber Work Phone: [facility] Start: 11-14-2021 End: 11-14-[address] Shane Schreiber Work Phone: [facility] Start: 10-24-2021 End: 10-24-[address] Shane Schreiber Work Phone: [facility] Start: 11-16-2018 End: 11-16-2018 Office outpatient visit 25 minutes [facility] Start: 11-09-2018 Patient encounter procedure [facility] Start: 10-23-2018 End: 10-23-2018 Phone Encounter [facility] Start: 08-25-2018 End: 08-25-2018 Phone Encounter [facility] Start: 08-24-2018 End: 08-24-2018 Office outpatient visit 25 minutes [facility] Start: 08-24-2018 Review Lola Lara [facility] Start: 05-28-2018 End: 05-28-2018 Office outpatient visit 5 minutes Lola Fast [facility] Start: 02-09-2018 End: 02-09-2018 Office outpatient visit 25 minutes [facility] Start: 09-05-2017 End: 09-22-2017 Office outpatient visit 15 minutes [facility] Start: 09-02-2017 End: 09-02-2017 Office outpatient visit 5 minutes [facility] Start: 05-16-2017 End: 05-16-2017 Office outpatient visit 25 minutes [facility] Start: 05-08-2017 End: 05-08-2017 Office outpatient visit 5 minutes [facility] Start: 02-11-2017 End: 02-11-2017 Office outpatient visit 25 minutes [facility] Start: 02-07-2017 End: 02-07-2017 Lab Order [facility] Start: 02-06-2017 End: 02-06-2017 Lab Order [facility] Start: 10-01-2016 End: 10-14-2016 Office outpatient visit 25 minutes [facility] Start: 07-31-2016 End: 07-31-2016 Office outpatient visit 5 minutes [facility] Start: 06-18-2016 End: 06-18-2016 Office outpatient visit 25 minutes [facility] Start: 05-20-2016 End: 05-20-2016 Office outpatient visit 5 minutes [facility] Start: 11-07-2015 End: 11-07-2015 Historical Summary [facility] Start: 2015 End: 2015 Phone Encounter [facility]ajosie [facility] Start: 2015 End: 2015 Office outpatient visit 25 minutes Lola [facility] Start: 05-10-2015 End: 05-11-2015 Office outpatient visit 25 minutes [facility]olajosie [facility] Start: 12-23-2014 End: 12-25-2014 Office outpatient visit 25 minutes [facility] Start: 08-15-2014 End: 08-15-2014 Office outpatient visit 25 minutes [facility] Start: 02-08-2014 End: 02-08-2014 Office outpatient visit 25 minutes [facility] Start: 08-20-2013 End: 08-20-2013 Patient encounter [facility]osie [facility] Start: 05-11-2013 End: 05-11-2013 Phone Encounter [facility]osie [facility] Start: 05-10-2013 End: 05-11-2013 Patient encounter [facility] Start: 01-04-2013 End: 01-04-2013 Patient encounter [facility]osie [facility] Start: 10-27-2012 End: 10-27-2012 Patient encounter [facility]osie [facility] Start: 09-01-2012 End: 09-01-2012 Patient encounter [facility]osie [facility] Start: 07-28-2012 End: 07-28-2012 Patient encounter [facility]osie [facility] Start: 06-30-2012 End: 06-30-2012 Phone Encounter [facility]osie [facility] Start: 06-26-2012 End: 06-28-2012 Patient encounter [facility]ajosie [facility] Start: 04-28-2012 End: 04-28-2012 Patient encounter [facility]osie [facility] Start: 01-27-2012 End: 01-27-2012 Phone Encounter [facility]osie [facility] Start: 01-07-2012 End: 01-07-2012 Patient encounter [facility]osie [facility] Start: 09-10-2011 End: 09-10-2011 Patient encounter [facility]osie [facility] Start: 08-30-2011 End: 08-30-2011 Annotation/Addendum [facility] Start: 08-26-2011 End: 08-26-2011 Phone Encounter [facility]osie [facility] Start: 07-23-2011 End: 07-23-2011 Phone Encounter [facility] Start: 07-31-2010 End: 07-31-2010 Annotation/Addendum [facility] Start: 07-31-2010 End: 07-31-2010 Patient encounter [facility] Start: 02-23-2010 End: 02-23-2010 Patient encounter [facility] Start: 11-24-2009 End: 11-24-2009 Patient encounter [facility] Start: 08-01-2009 End: 08-01-2009 Patient encounter [facility] Start: 04-07-2009 End: 04-07-2009 Patient encounter [facility] Start: 03-28-2009 End: 03-28-2009 Patient encounter [facility] Start: 11-15-2008 End: 11-15-2008 Patient encounter [facility] Start: 08-16-2008 End: 08-16-2008 Patient encounter [facility] Start: 05-06-2008 End: 05-06-2008 Patient encounter [facility] Start: 01-01-2008 End: 01-01-2008 Patient encounter [facility] Start: 09-15-2007 End: 09-15-2007 Patient encounter [facility] Start: 06-12-2007 End: 06-14-2007 Patient encounter [facility] Start: 01-26-2007 End: 01-26-2007 Patient encounter [facility] Start: 08-19-2006 End: 08-19-2006 Office outpatient visit 15 minutes [facility] Start: 07-18-2006 End: 07-21-2006 Office outpatient visit 25 minutes [facility] Start: 07-02-2006 End: 07-02-2006 Historical Summary [facility] Procedures Date Procedure Procedure Detail Performing Clinician Start: 09-30-2024 Assay of prostate specific antigen total Dr. Shane Schreiber MD Work Phone: Comment on above: This test was performed using the [employer] tPSA method. Measured values of a patient sample can vary depending on the testing procedure used. PSA values determined on patient samples by different testing procedures cannot be used interchangeably. If there is a change in PSA assays while monitoring therapy, sequential testing should be performed to confirm baseline values. Start: 09-22-2024 Computerized ophthalmic imaging retina Johan Jimenez MD Work Phone: Start: 08-23-2024 Evaluation of diagnostic study results Dr. Shane Schreiber MD Work Phone: Start: 07-21-2024 Computerized corneal topography uni/bi Johan Jimenez MD Work Phone: Start: 07-21-2024 IOL BIOMETRY W/ IOL CALC OU (BOTH EYES) Johan Jimenez MD Work Phone: Start: 07-01-2024 Computerized ophthalmic imaging retina Franklin Tony OD Work Phone: Start: 09-13-2022 Radionuclide whole body bone study Dr. Shane Schreiber Work Phone: Start: 02-13-2022 PET study for localization of tumor Dr. Shane Schreiber Work Phone: Start: 08-27-2018 End: 08-28-2018 Thyroid Comments: See Note; NOTES: [facility] Imaging Services [address] [place] [id number] Thyroid MR#: [id number] Acct: [id number] Name: SHERRELL GENAO Rep #: [id number] : 1945 M 73 From: Ren Couch MD PCP: Lola Lara DO Status: REG CLI Study: Thyroid Date of Exam: 08/27/18 Exam# [id number] Ordering Dr: Lola Lara DO STUDY: THYROID ULTRASOUND REASON FOR EXAM: Male, 73 years old. Nodules. TECHNIQUE: Ultrasound evaluation of the thyroid was performed with real-time and static fernandez-scale imaging. COMPARISON: 06/17/2017. FINDINGS: RIGHT LOBE: The right lobe of the thyroid gland measures 3.5 x 1.2 x 2.2 cm. There is a heterogeneous echotexture. Solid mildly hypoechoic nodule with hypoechoic rim measuring 0.9 x 0.8 x 0.7 cm. Small anechoic cyst measuring 0.5 x 0.4 x 0.3 cm. Small solid hypoechoic nodule measuring 0.5 x 0.4 x 0.4 cm. LEFT LOBE: The left lobe of the thyroid gland measures 4.7 x 2.1 x 2.1 cm. There is a heterogeneous echotexture. 2 solid nodules measuring 1.2 x 1.0 x 0.7 cm, 0.8 x 1.0 x 0.6 cm. Small anechoic cyst measuring 0.3 x 0.4 x 0.2 cm. ISTHMUS: The isthmus measures 0.6 cm. . US/Thyroid IMPRESSION: 1. 2 solid nodules in each thyroid lobe. 2. Small anechoic cyst in each thyroid lobe. 3. Allowing for differences in technique, these are most likely unchanged. They are too small for ultrasound-guided FNA. 4. No significant interval change when compared to 06/17/2017. Electronically Signed: Ren Couch MD at 14:34 EST , Service support , CC: Lola Lara DO Classified Copy Control Clerk: Signed Lola Lara Work Phone: Start: 06-18-2017 End: 06-18-2017 TXT - Blood Flow Screening Comments: See Note; NOTES: [facility] Cardiovascular Services [address] [place] [address] 06/17/17 0946 MR#: [id number] Acct: [id number] Name: SHERRELL GENAO Rep #: [id number] : 1945 71 From: Ramsey Camp MD Attending Dr: Lola Lara DO Status: REG REF Ordering Dr: Date: 06/18/17 Location: [facility] Sex: M C Admitted: Carotid Duplex Ultrasound Abdominal Aorta The right ECA velocity is less than 125 cm/s. The maximal outside diameter of the proximal The right maximum ICA velocity is 104/19.9 cm/s. aorta measures 2.46 cm in the longitudinal axis. The left ECA velocity is less than 125 cm/s. The maximal outside diameter of the proximal The left maximum ICA velocity is 62.7/15.2 cm/s. aorta measures 2.51 x 2.49 cm in the cross- There is insignificant plaque formation noted on sectional axis. the right side. There is insignificant plaque formation noted on the left side. Ankle Brachial Index The right ankle/ brachial index is 1.3. The left ankle/ brachial index is 1.0. Medical History and Assessment The heart rate is 80 beats per minute. The heart rhythm is regular. The right blood pressure is 150/90. The left blood pressure is 150/86. The patient presents with a history of DM and HTN. The assessment was performed by Yesy Alejandro RVT. Interpretation Summary Normal carotid artery screening (0 to 15% narrowing). The intra-abdominal aorta is enlarged, though not frankly aneurysmal. Follow-up with your physician is recommended. The ankle/brachial index is normal (1.0 or greater). Performed By: Paresh Alejandro RVT 06/18/17 1052 Date Ramsey Camp MD CC: Lola Lara DO Date Dictated: 06/17/17 0946 Date Transcribed: 06/18/17 1052 Classified Copy Control Clerk: Signed Lola Lara Start: 06-17-2017 End: 06-17-2017 Thyroid Comments: See Note; NOTES: [facility] Imaging Services [address] [place] [address] Thyroid MR#: [id number] Acct: [id number] Name: SHERRELL GENAO Rep #: [id number] : 1945 M 71 From: Marquise Engel PCP: Lola Lara DO Status: REG CLI Study: Thyroid Date of Exam: 06/17/17 Exam# [id number] Ordering Dr: Lola Lara DO STUDY: THYROID ULTRASOUND REASON FOR EXAM: Male, 71 years old. Goiter TECHNIQUE: Ultrasound evaluation of the thyroid was performed with real-time and static fernandez-scale imaging. COMPARISON: 07/01/2016. FINDINGS: RIGHT LOBE: The right lobe of the thyroid gland measures 5.0 x 1.8 x 2.0 cm. There is a heterogeneous echotexture. Multiple hypoechoic nodules the largest in the mid portion measuring 8 x 8 x 5 mm. LEFT LOBE: The left lobe of the thyroid gland measures 5.2 x 2.1 x 2.1 cm. There is a heterogeneous echotexture. There is a hypoechoic lower 7 x 5 x 6 mm nodule. ISTHMUS: The isthmus measures 0.4 cm . The regional lymph nodes are normal. US/Thyroid IMPRESSION: Stable bilateral small thyroid nodules Electronically Signed: Marquise Engel DO at 21:28 EST , Service support , CC: Lola Lara DO Classified Copy Control Clerk: Signed Lola Colno Phone: Start: 07-03-2016 End: 07-03-2016 Carotid Duplex Ultrasound Comments: See Note; NOTES: [facility] Cardiovascular Services [address] [place] [address] Carotid Duplex Ultrasound 07/01/16 1335 MR#: [id number] Acct: [id number] Name: SHERRELL GENAO Rep #: [id number] : 1945 70 From: Brayan Flood MD Attending Dr: Lola Lara DO Status: REG CLI Ordering Dr: Lola Lara DO Date: 07/01/16 Location: US Sex: M C Admitted: Reason For Study: carotid stenosis Rt. Velocities/BP Lt. Velocities/BP Prox CCA 66.8/14.1 cm/sec. Prox CCA 98.5/20.5 cm/sec. Mid CCA 84.4/21.7 cm/sec. Mid CCA 72.1/21.1 cm/sec. Dist CCA 71.5/22.3 cm/sec. Dist CCA 65.7/18.8 cm/sec. Prox ICA 71.5/18.8 cm/sec. Prox ICA 48.3/16.9 cm/sec. Mid ICA 53.8/20.8 cm/sec. Mid ICA 63.3/25.5 cm/sec. Dist ICA 68.8/12.2 cm/sec. Dist ICA 71.9/30.3 cm/sec. Rt. ICA/CCA = 71.5/84.4=0.85. Lt. ICA/CCA = 71.9/72.1=1.0. Prox ECA 90.3/16.4 cm/sec. Prox ECA 73.9/12.9 cm/sec. Rt. Vert. 46.0/14.1 cm/sec. Lt. Vert. 34.2/13.8 cm/sec. Right Extracranial There is intimal thickening but no significant atherosclerotic plaque noted in the right common carotid artery. There is intimal thickening but no significant atherosclerotic plaque noted in the right internal carotid artery. There is intimal thickening but no significant atherosclerotic plaque noted in the right external carotid artery. Antegrade flow is noted in the right vertebral artery. There is homogeneous, smooth atherosclerotic plaque noted in the left bulb. Left Extracranial There is intimal thickening but no significant atherosclerotic plaque noted in the left common carotid artery. There is intimal thickening but no significant atherosclerotic plaque noted in the left internal carotid artery. There is intimal thickening but no significant atherosclerotic plaque noted in the left external carotid artery. The left external carotid artery is not well visualized. Antegrade flow is noted in the left vertebral artery. There is heterogeneous, irregular atherosclerotic plaque noted in the left bulb. Interpretation Summary Mild (<50%) stenosis right extracranial internal carotid. Mild (<50%) stenosis left extracranial internal carotid. Flow within the vertebral arteries is antegrade bilaterally. Ordering Physician: Lola Lara Performed By: Preeti Kraus RDCS 07/03/16 1053 Date Brayan Flood MD CC: Lola Lraa DO Date Dictated: 07/01/16 1335 Date Transcribed: 07/03/16 1053 Classified Copy Control Clerk: Signed Lola Lara Work Phone: Start: 07-01-2016 End: 07-01-2016 Thyroid Comments: See Note; NOTES: [facility] Imaging Services [address] [place] [id number] Verdana 4d Thyroid MR#: [id number] Acct: [id number] Name: SHERRELL GENAO Rep #: [id number] : 1945 70 From: Diogenes Connolly MD PCP: Lola Lara DO Status: REG CLI Study: Thyroid Date of Exam: 07/01/16 Exam# [id number] Ordering Dr: Lola Lara DO STUDY: THYROID ULTRASOUND REASON FOR EXAM: Male, 70 years old. Thyroid nodule TECHNIQUE: Ultrasound evaluation of the thyroid was performed with real-time and static fernandez-scale imaging. COMPARISON: Previous study of 01/31/2014 FINDINGS: RIGHT LOBE: The right lobe of the thyroid gland measures 5.0 x 2.7 x 2.2 cm. There is a heterogeneous echotexture. For right thyroid lobe solid nodules are present in the mid and upper pole measuring 5 x 6 x 4 mm, 9 x 7 x 6 mm, 3 x 4 x 3 mm, and 3 x 4 x 3 mm respectively. The margins of these nodules are well-defined. There is predominantly perinodular vascularity. LEFT LOBE: The left lobe of the thyroid gland measures 4.9 x 2.7 x 1.8 cm. There is a heterogeneous echotexture. There is a well-defined hypoechoic nodule of the mid pole measuring 8 x 9 x 8 mm. Vascularity is Nodular. ISTHMUS: The isthmus measures 3 mm . The regional lymph nodes are normal. US/Thyroid IMPRESSION: Bilateral thyroidal nodules as described above. There is an additional new nodule of the mid pole of the right thyroidal lobe measuring 3 x 4 x 3 mm. There has been a slight increase in size of previous mid pole right thyroid lobe nodule presently measuring 3 x 4 x 3 cm, up from 2.6 x 2.8 x 1.8 mm. No other significant interval changes noted. Ultrasound follow-up in 6-12 months is recommended to assess for stability. Electronically Signed: Diogenes Connolly MD at 16:41 EST , Service support [phone], CC: Lola Lara DO Classified Copy Control Clerk: Signed Lola Lara Work Phone: Start: 02-17-2016 End: 02-17-2016 Operative Report Comments: See Note; NOTES: [facility] Medical Records Department [address] [place] [address] Operative Report MR#: [id number] Acct: [id number] Name: SHERRELL GENAO Rep #: [id number] : 1945 70 From: Burak Gtz MD PCP: Lola Lara DO Status: [facility] DATE OF SERVICE: 02/16/2016 DATE OF SERVICE: 02/16/2016. PREOPERATIVE DIAGNOSIS: Bladder tumor, medium size. POSTOPERATIVE DIAGNOSIS: Bladder tumor, medium size. PROCEDURE: Transurethral resection of medium-sized bladder tumor and instillation of mitomycin in the pacu. SURGEON: Burak Gtz M.D. ANESTHESIA: General. SPECIMEN: Bladder tumor. Instillation of mitomycin-C in the PACU. INDICATIONS: A 70-year-old male who had microscopic hematuria. On workup, he was found to have a medium-sized bladder tumor involving the right lateral wall of the bladder about 1 cm above the right ureteral orifice. Because of this, I recommended we take him to surgery to do a resection of this tumor and also instill mitomycin C after the procedure. PROCEDURE NOTE: The patient was taken back to the operating room. After smooth induction of general anesthesia in the operating room, we placed him in the dorsal lithotomy position. Penis and testicles were prepped and draped in usual sterile fashion. I went into the bladder with a 26-Hebrew continuous flow resectoscope using the bipolar Olympus system. The tumor was identified in the right lateral wall, about 1 cm above the right ureteral orifice. I resected this tumor down to the base of the tumor, did not look like an invasive tumor. I then cauterized the base extensively. The ureteral orifice was spared with open and patent effluxing clear yellow urine. I then used pinpoint cautery to obtain hemostasis. I elliked out all the chips and drained the bladder. I then placed a Nick catheter in the bladder. In the PACU, I then instilled 40 mL of mitomycin C for chemo treatment after resection. The patient's anesthetic was reversed and did well after surgery. Burak Gtz MD T: NTS JOB: [id number] 02/17/16 0756 <Electronically signed by Burak Gtz MD> Date Burak Gtz MD Cosigner Signature (If Indicated): Date CC: Lola Lara DO; Burak Gtz MD Date Dictated: 02/16/16 1535 Date Transcribed: 02/16/161534 Classified Copy Control Clerk: Signed Lola Lara Start: 02-16-2016 End: 02-16-2016 Discharge Instruction Comments: See Note; NOTES: [facility] Medical Records Department [address] [place] [address] Instructions for Home/Discharge Instructions 02/16/16 1526 MR#: [id number] Acct: [id number] Name: SHERRELL GENAO Rep #: [id number] : 1945 70 From: Burak Gtz MD PCP: Lola Lara DO Status: REG [facility] Discharge Diet: No Restrictions, Light diet - advance as tolerated Discharge Activity: Return to Normal Activity, May Not Drive - for 2 days., May not drive while taking narcotic pain medications. Additional Activity Instructions:: If you have any problems call [phone] and ask for your doctor to be paged. Please be aware that pain medications may cause nausea. You should typically eat light foods as you take your pain medication. Pain medication may cause constipation, if this is a problem for you, please discuss with your doctor. Call your doctor if your incision/area has: Continuous Slow Oozing, Sudden Increased Bleeding, Increased Pain/ Swelling, Increased Redness, Foul Smelling Discharge, Swelling at the incision site Call your doctor if you observe: Fever of 101 or Higher Suture Line Care: Avoid Pulling/Pushing, Avoid Pinching/Bending Allergies/Adverse Reactions: Allergies No Known Allergies Allergy (Verified 02/09/16 10:06) Medications to take at Discharge Allopurinol [Zyloprim] 100 mg PO BIDCM 02/09/16 Amlodipine [Norvasc] 10 mg PO DAILY 02/09/16 Aspirin E.C. [Ecotrin] 81 mg PO DAILY@0800 02/09/16 Atenolol [Tenormin (beta Ken)] 25 mg PO DAILY 02/09/16 Cholecalciferol (Vitamin D3) [Vitamin D3] 10,000 unit PO DAILY 02/09/16 Linagliptin [Tradjenta] 5 mg PO DAILY 02/09/16 Marion-3/Dha/Epa/Fish Oil [Fish Oil 1,400 mg Softgel] 1 each PO DAILY 02/09/16 Simvastatin [Zocor] 40 mg PO QHS 02/09/16 Tamsulosin HCl [Flomax] 0.4 mg PO DAILY 02/09/16 Please Follow Up With: Burak Gtz When: in 2 weeks, please call to make an appointment. 02/16/16 1530 <Electronically signed by Burak Gtz MD> Date Burak Gtz MD CC: Lola Keen Start: 02-16-2016 End: 02-16-2016 Operative Report Comments: See Note; NOTES: [facility] Medical Records Department [address] [facility] [place] [address] Operative Report 02/16/16 1524 MR#: [id number] Acct: [id number] Name: SHERRELL GENAO Rep #: [id number] : 1945 70 From: Burak Gtz MD PCP: Lola Lara DO Status: REG [facility] Location: [place] [address] Report of Operation Date of Procedure: 02/16/16 Pre-Operative Diagnosis: bladder tumor Post-Operative Diagnosis: same Surgery/Procedure Performed:: cystoscopy, transurethral resection of bladder tumor (medium). and instillation of mitomycin C in pacu Type of Anesthesia:: General Anesthesiologist: Riccardo Vo Drains: nick - Admit VTE Documentation VTE Present on Admission: No VTE Mechan Device Prophylaxis: SCD's VTE Pharm Prophylaxis ordered?: No Reason prophylaxis not ordered:: Treatment Not Indicated 02/16/16 1526 <Electronically signed by Burak Gtz MD> Date Burak Gtz MD CC: Lola Lara DO; Burak Gtz MD Signed Lola Lara Start: 02-12-2016 End: 02-12-2016 bladder surg Brandie Guevara Comment on above: Outpatient. No post-op complications. Start: 01-30-2016 End: 01-30-2016 Abdomen/Pelvis W/WO Contrast Comments: See Note; NOTES: [facility] Imaging Services [address] [place] [address] [place] 4d Abdomen/Pelvis W/WO Contrast MR#: [id number] Acct: [id number] Name: SHERRELL GENAO Rep #: [id number] : 1945 M 70 From: Rivera Peters MD PCP: Lola Lara DO Status: REG CLI Study: Abdomen/Pelvis W/WO Contrast Date of Exam: 01/30/16 Exam# [id number] Ordering Dr: Burak Gtz MD STUDY: CT ABDOMEN AND PELVIS WITH AND WITHOUT CONTRAST REASON FOR EXAM: Male, 70 years old. New diagnosis of bladder cancer. History of prior prostate cancer with radiation seed implant. The patient is status post left nephrectomy for left renal cell carcinoma. RADIATION DOSAGE (If Supplied By Facility): CTDIvol = ( 18.63 ) mGy, DLP = ( 2626.83 ) mGycm TECHNIQUE: Transaxial images were obtained from the dome of the diaphragm to the symphysis pubis without oral contrast. 100 ml of Isovue 300 contrast was administered. Sagittal and coronal images were reconstructed. Individualized dose optimization techniques were used for this CT. COMPARISON: Comparison is made with prior examination dated September 15, 2014. FINDINGS: Mild increased markings at the lung base suggestive of scarring. This is unchanged. The visualized portions of the heart are within normal limits. There is decreased attenuation of the liver consistent with steatosis. There are surgical clips in the gallbladder fossa consistent with a prior cholecystectomy. Normal spleen. Normal pancreas. Normal bilateral adrenal glands. Normal right kidney. The patient is status post left nephrectomy. There is a small hiatal hernia. Normal small intestine. There are multiple colonic diverticula consistent with diverticulosis. The appendix is visualized and appears normal. There is diffuse atherosclerotic calcification of the abdominal aorta and its major visceral branches, without a demonstrated aneurysm. Normal inferior vena cava. There is borderline retroperitoneal lymphadenopathy with enlarged nodes no greater than 10mm in the short axis diameter. Normal urinary bladder. Metallic radiation seeds are seen within the prostate. Normal abdominal wall. There are diffuse degenerative changes of the visualized lumbar spine. 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 IMPRESSION: Stable examination. Electronically Signed: Rivera Peters MD at 14:42 EDT Tel [phone], Service support [phone], CC: Lola Lara DO; Burak Gtz MD Classified Copy Control Clerk: Signed Lola Lara Start: 2015 End: 2015 Ecg routine ecg w/least 12 lds w/i&r [MEASUREMENTS ANALYSIS] Date of Test: 2015 09:17:13; Heart Rate: 58; MS Interval: 184; QRS: 99; QT Interval: 402; Corrected QT Interval (QTc): 399; P Wave Vanderbilt: 51; QRS Wave Vanderbilt: 18; T Wave Vanderbilt: 40; Blood Pressure: 112/80 [ECG DIAGNOSTIC STATEMENTS] Date of Test: 2015 09:17:13; Summary: Sinus Bradycardia WITHIN NORMAL LIMITS Lola Lara Work Phone: Comment on above: ekg showed sinus flaquita, normal axis, no acute st/t wave changes Start: 12-25-2014 End: 12-25-2014 Carotid Duplex Ultrasound Comments: See Note; NOTES: [facility] Cardiovascular Services [address] [place] [address] Carotid Duplex Ultrasound 12/23/14 1700 MR#: [id number] Acct: [id number] Name: SHERRELL GENAO Rep #: [id number] : 1945 69 From: Brayan Flood MD Attending Dr: Lola Lara DO Status: REG CLI Ordering Dr: Lola Lara DO Date: 12/23/14 Location: [facility] Sex: M C Admitted: Rt. Velocities/BP Lt. Velocities/BP Prox CCA 85.0/16.4 cm/sec. Prox CCA 100.0/14.1 cm/sec. Mid CCA 99.1/19.9 cm/sec. Mid CCA 96.7/20.5 cm/sec. Dist CCA 100.0/21.7 cm/sec. Dist CCA 78.6/16.4 cm/sec. Prox ICA 112.0/17.3 cm/sec. Prox ICA 62.1/18.1 cm/sec. Mid ICA 75.4/24.4 cm/sec. Mid ICA 57.0/17.7 cm/sec. Dist ICA 78.6/24.4 cm/sec. Dist ICA 93.8/34.6 cm/sec. Rt. ICA/CCA = 1.1. Lt. ICA/CCA = 1.0. Prox ECA 127.0/16.5 cm/sec. Prox ECA 95.6/11.7 cm/sec. Rt. Vert. 43.2/10.6 cm/sec. Lt. Vert. 66.8/18.8 cm/sec. Right Extracranial There is intimal thickening but no significant atherosclerotic plaque noted in the right common carotid artery. There is intimal thickening but no significant atherosclerotic plaque noted in the right internal carotid artery. There is intimal thickening but no significant atherosclerotic plaque noted in the right external carotid artery. Antegrade flow is noted in the right vertebral artery. Left Extracranial There is intimal thickening but no significant atherosclerotic plaque noted in the left common carotid artery. There is heterogeneous, irregular atherosclerotic plaque noted in the left internal carotid artery. There is no significant atherosclerotic plaque noted in the left external carotid artery. Antegrade flow is noted in the left vertebral artery. There is heterogeneous, irregular atherosclerotic plaque noted in the left bulb. Procedure Carotid Duplex 20034. The exam was diagnostic. Exam performed in department. Interpretation Summary Mild (<50%) stenosis right extracranial internal carotid. Mild (<50%) stenosis left extracranial internal carotid. Flow within the vertebral arteries is antegrade bilaterally. Ordering Physician: Lola Lara Performed By: Kristen Harper, AMY, RVT 12/25/14 1025 Date Brayan Flood MD CC: Lola Lara DO Date Dictated: 12/23/14 1700 Date Transcribed: 12/25/14 1025 Classified Copy Control Clerk: Signed Lola Lara Work Phone: Start: 09-15-2014 End: 09-15-2014 Chest PA and Lateral Comments: See Note; NOTES: [facility] Imaging Services [address] [place] [address] Radiology Report MR#: [id number] Acct: [id number] Name: BIRGITSHERRELL Gerardo Rep #: [id number] : 1945 69 From: Jovon Damon MD PCP: Lola Lara DO Status: REG CLI Study: Chest PA and Lateral Date of Exam: 09/15/14 Exam# [id number] Ordering Dr: Burak Gtz MD STUDY: X-RAY CHEST REASON FOR EXAM: Male, 69 years old. Renal cell carcinoma. TECHNIQUE: PA and lateral views of the chest. COMPARISON: PA and lateral views of chest May 12, 2012. FINDINGS: There is hyperinflation of the lungs consistent with chronic obstructive lung disease (COPD). Subcentimeter calcified granuloma in the left midlung is unchanged. No new infiltrate. There is no demonstrated pleural abnormality. Normal size heart. Normal mediastinum and mary. Normal visualized pulmonary arteries. Normal visualized aortic arch and descending thoracic aorta. There are stable degenerative changes of the visualized thoracic spine. 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 There is no demonstrated abnormality of the visualized soft tissue structures of the upper abdomen. IMPRESSION: 1. No acute cardiopulmonary disease. 2. Hyperinflation consistent with obstructive pulmonary disease. Left lung calcified granuloma again noted. Electronically Signed: Rahul Damon MD at 17:03 EST , Service support [phone], RAD/Chest PA and Lateral IMPRESSION: 1. No acute cardiopulmonary disease. 2. Hyperinflation consistent with obstructive pulmonary disease. Left lung calcified granuloma again noted. Electronically Signed: Rahul Damon MD at 17:03 EST , Service support [phone], CC: Lola Lara DO; Burak Gtz MD Classified Copy Control Clerk: Signed Lola Lara Start: 09-15-2014 End: 09-15-2014 Abdomen/Pelvis without Cont Comments: See Note; NOTES: [facility] Imaging Services [address] [place] [address] CAT Scan Report MR#: [id number] Acct: [id number] Name: SHERRELL GENAO Rep #: [id number] : 1945 M 69 From: Rivera Peters MD PCP: Lola Lara DO Status: REG CLI Study: Abdomen/Pelvis without Cont Date of Exam: 09/15/14 Exam# [id number] Ordering Dr: Burak Gtz MD STUDY: CT ABDOMEN AND PELVIS WITHOUT CONTRAST REASON FOR EXAM: Male, 69 years old. Patient has a history of renal cell carcinoma with prior nephrectomy. History of prostate carcinoma as well. RADIATION DOSAGE (If Supplied By Facility): CTDIvol = ( 22.34 ) mGy, DLP = ( 1037.23 ) mGycm TECHNIQUE: Transaxial images were obtained from the dome of the diaphragm to the symphysis pubis without oral contrast, and without intravenous contrast. Sagittal and coronal images were reconstructed. COMPARISON: Comparison is made with prior study dated September 29, 2012. FINDINGS: The visualized lung bases are unremarkable. Coronary artery calcification. There is decreased attenuation of the liver consistent with steatosis. There are surgical clips in the gallbladder fossa consistent with a prior cholecystectomy. Normal spleen. Normal pancreas. Normal bilateral adrenal glands. Normal right kidney. The patient is status post left nephrectomy. Normal visualized stomach. Normal small intestine. Normal colon. The appendix is visualized and appears normal. There is diffuse atherosclerotic calcification of the abdominal aorta and its major visceral branches, without a demonstrated aneurysm. Normal inferior vena cava. There is borderline retroperitoneal lymphadenopathy with enlarged nodes no greater than 10mm in the short axis diameter. Normal urinary bladder. Multiple radiation seeds are seen within the prostate gland. Normal abdominal wall. There are diffuse degenerative changes of the visualized lumbar spine. Stable grade 2 anterior listhesis of L4 on L5 spondylolyses of the pars interarticularis of the L4 vertebra. IMPRESSION: Stable examination. Electronically Signed: Rivera Peters MD at 14:55 EST Tel [phone], Service support [phone], CC: Lola Lara DO; Burak Gtz MD Classified Copy Control Clerk: Signed Lola Lara Start: 01-31-2014 End: 01-31-2014 Echocardiogram Complete Comments: See Note; NOTES: [facility] Cardiovascular Services [address] [place] [address] Echo Complete 01/31/14 0823 MR#: [id number] Acct: [id number] Name: SHERRELL GENAO Rep #: [id number] : 1945 68 From: Dante Hilliard MD Attending Dr: Lola Lara DO Status: REG CLI Ordering Dr: Lola Lara DO Date: 01/31/14 Location: US Sex: M C Admitted: Procedure This was a 2D Doppler, Color Flow transthoracic echocardiogram. Exam performed in department. Left Ventricle Normal LV size. Left ventricular systolic function is normal. The estimated ejection fraction is 60 %. No regional wall motion abnormalities noted. Right Ventricle Normal RV size. Normal systolic function. Atria Normal left atrium. Normal right atrium. Mitral Valve Bileaflet diffuse mitral valve thickening. Mild (1+) mitral valve insufficiency. Tricuspid Valve Normal tricuspid valve. Mild (1+) tricuspid valve insufficiency. Pulmonary artery systolic pressure is 30 mmHg. Aortic Valve Trisinus/trileaflet aortic valve. Mild focal aortic valve calcification. Pulmonic Valve Normal pulmonic valve. Mild (1+) pulmonic valve insufficiency. Great Vessels Normal aortic root. The pulmonary artery is normal size. Normal inferior vena cava. Pericardium/Pleural No pericardial effusion. LVIDd: 4.7 cm IVSd: 0.90 cm Ao root diam: 3.4 cm LAV(MOD-bp): 64.2 ml LVIDs: 3.2 cm LVPWd: 0.92 cm Ao root area: 9.1 cm2 LAV(MOD-bp) Indexed: 29.5 ml/m2 RVDd: 3.4 cm FS: 32.5 % LA dimension: 4.3 cm LAV(MOD-sp2): 62.6 ml LAV(MOD-sp4): 64.4 ml LA A4 area: 21.8 cm2 RA A4 area: 17.5 cm2 MV E max cody: Lat Peak E' Cody: Med Peak E' Cody: Ao V2 max: 145.0 cm/sec 111.4 cm/sec 7.7 cm/sec 5.6 cm/sec Ao max P.4 mmHg MV A max cody: 64.0 cm/sec MV E/A: 1.7 LV V1 max: 87.4 cm/sec PA V2 max: 115.2 cm/sec PI max cody: 218.2 cm/sec TR max cody: LV V1 max P.1 mmHg PA max P.3 mmHg PI max P.0 mmHg 248.5 cm/sec PI dec slope: TR max P.7 mmHg 259.5 cm/sec2 E/E' lat: 14.5 E/E' med: 20.0 Interpretation Summary Normal LV size. Left ventricular systolic function is normal. The estimated ejection fraction is 60 %. No regional wall motion abnormalities noted. Mild (1+) tricuspid valve insufficiency. _ Ordering Physician: Lola Lara Performed By: Amy Zuniga RDCS : Lola Lara DO Date Dictated: 01/31/14 0823 Date Transcribed: 01/31/14 1254 Classified Copy Control Clerk: Signed Lola Lara Start: 01-31-2014 End: 02-08-2014 Thyroid Comments: See Note; NOTES: [facility] Imaging Services [address] [place] [address] Ultrasound Report MR#: [id number] Acct: [id number] Name: GENAOSHERRELL Rep #: [id number] : 1945 M 68 From: Elisa Cruz MD PCP: Lola Lara DO Status: REG CLI Study: Thyroid Date of Exam: 01/31/14 Exam# [id number] Ordering Dr: Lola Lara DO ADDENDUM by Rivera Peters MD on 02/08/14 at 1617 ADDENDUM This is an addendum report. The measurements of the thyroid nodules are all in millimeters. Electronically Signed: Rivera Peters MD at 16:17 EDT Tel [phone], Service support [phone], 02/08/14 1624 Date cc: Lola Lara DO * Signed STUDY: THYROID ULTRASOUND REASON FOR EXAM: Male, 68 years old. Enlargement of the thyroid gland. TECHNIQUE: Ultrasound evaluation of the thyroid was performed with real-time and static fernandez-scale imaging. COMPARISON: None. FINDINGS: RIGHT LOBE: The right lobe of the thyroid gland measures 5.0x2.1x2.0 cm. There is a homogeneous echotexture. 3 heterogeneous nodules are seen in the right lobe with cystic and solid components. These measure respectively 5x4.8x4.4 mm, 2.6x2.8x1.8 m, 8.5x8.9x5.6 cm are located respectively in the upper and mid part of the thyroid lobe. LEFT LOBE: The left lobe of the thyroid gland measures 4.6x2.0x1.3 cm. There is a homogeneous echotexture. There is a nodule in the left thyroid lobe has a heterogeneous appearance measures 9.4x8.2x8.0 cm and the middle part of the thyroid lobe. ISTHMUS: The isthmus measures 3 mm. IMPRESSION: Bilateral thyroid nodules there are 3 nodules in the right thyroid lobe there is one nodule in left thyroid lobe largest nodule is in left thyroid lobe measures 9.4 mm these have nonspecific appearance they may represent multinodular goiter. A followup in 6 months and a linear can be helpful for better characterization. Ultrasound-guided biopsy can be performed if needed for definitive diagnosis., Electronically Signed: Demetra Cruz MD at 11:02 EDT Tel , Service support [phone], CC: Lola Lara DO Classified Copy Control Clerk: Signed Lola Lara Work Phone: Cholecystectomy Brandie Manc hak Cholecystectomy Arabella L Long Colonoscopy Brandie Manchak Comment on above: Abnormal. 10/10/15- small adenomas remove d- repeat in 3 years Colonoscopy Arabella L Long Comment on above: Abnormal. 10/10/15- small adenomas remove d- repeat in 3 years left nephrectomy- 20 12- - Brandie Manchak left nephrectomy- 20 12- - Arabella L Long Prostatectomy; Transurethral Brandie Manchak Prostatectomy; Transurethral Arabella L Long Plan of Treatment Date Care Activity Detail Author Start: 01-23-2026 End: 01-23-2026 Patient encounter procedure 01/23/2026 9:30 AM EDT Office Visit [facility] [address] [place] [address] Franklin Tony, OD [address] [place] [address] [facility] [address] [address] 1 YR F/U for complete eye exam with OCT nerve. Ophthalmology Comment on above: 1 YR F/U for complete eye exam with OCT nerve. Start: 01-20-2026 Glaucoma screening Dilated Retinal Exam [facility] Start: 08-25-2025 BP Controlled (<130/80) BP Controlled (<130/80) [facility] Start: 07-21-2025 Glaucoma screening Dilated Retinal Exam [facility] Start: 12-19-2025 Glaucoma screening Dilated Retinal Exam [facility] Start: 03-14-2025 Influenza vaccination Influenza Vaccine (#1) [facility] Start: 03-05-2025 ambulatory Ambulatory Facility:[facility] Start: 01-20-2025 End: 01-20-2025 Patient encounter procedure 01/20/2025 10:00 AM EDT Office Visit [facility] [address] [place] [address] Franklin Tony, OD [address] [place] [address] [facility] [address] [address] 1 MO PO PHACO OS Ophthalmology Comment on above: 1 MO PO [facility]ACO [facility] Start: 01-19-2025 End: 01-19-2025 Patient encounter procedure 01/19/2025 11:15 AM EDT Office Visit [facility] [address] [place] [address] Johan Jimenez MD [address] [place] [address] 1 MO PO PHACO OS Ophthalmology Comment on above: 1 MO PO PHACO OS Start: 12-27-2024 End: 12-27-2024 Patient encounter procedure 12/27/2024 11:00 AM EDT Office Visit [facility] [address] [place] [address] Franklin Tony, OD [address] [place] [address] 1 WEEK PO PHACO OS Ophthalmology Comment on above: 1 WEEK PO PHACO OS Start: 12-22-2024 End: 12-22-2024 Patient encounter procedure 12/22/2024 11:45 AM EDT Office Visit [facility] [address] [place] [address] Johan Jimenez MD [address] [place] [address] 1 DAY PO PHACO OS Ophthalmology Comment on above: 1 DAY PO PHACO OS Start: 12-21-2024 End: 12-21-2024 Admission to same day surgery center Kellie SWANN Comment on above: PHACOEMULSIFICATION CATARACT IMPLANT INT RAOCULAR LENS W/O ENDOSCOPIC CYCLOPHOTOCOAGULATION Start: 12-21-2024 End: 12-21-2024 Oph bmtry prtl coher intrfrmtry io lens pwr muna [facility] Start: 12-21-2024 Subsequent hospital visit by physician Kellie SWANN Comment on above: 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] Start: 12-21-2024 End: 12-21-2024 Xcapsl ctrc rmvl insj io lens prosth w/o ecp [facility] [facility] Start: 12-13-2024 End: 12-13-2024 Anesthesia consultation 12/13/2024 10:00 AM EDT PAT Pre Anesthesia [address] [place] [address] 1, Pacc Adams [address] [place] [address] PRE-OP H&P Pre Anesthesia Comment on above: PRE-OP H&P Start: 11-23-2024 Covid-19 Vaccine ( season) Covid-19 Vaccine ( season) [facility] Start: 10-07-2024 End: 10-07-2024 Patient encounter procedure 10/07/2024 11:00 AM EDT Office Visit [facility] Ophthal[facility] [address] [place] [address] Franklin Tony, OD [address] [place] [address] 1 mo PO right eye - RRS Ophthalmology Comment on above: 1 mo PO right eye - RRS Start: 09-22-2024 End: 09-22-2024 Patient encounter procedure 09/22/2024 11:00 AM EDT Office Visit [facility] [address] [place] [address] Johan Jimenez MD [address] [place] [address] 1 wk PO right eye Ophthalmology Comment on above: 1 wk PO right eye Start: 09-13-2024 End: 09-13-2024 Patient encounter procedure 09/13/2024 11:30 AM EST Office Visit OPHT [facility] [address] [place] [address] Johan Jimenez MD [address] [place] [address] Return in about 1 week (around 09/14/2024). [facility] Comment on above: Return in about 1 week (around 09/14/2024) . Start: 09-07-2024 End: 09-07-2024 Patient encounter procedure Ophthalmolog y Comment on above: 1 day PO right eye Start: 09-06-2024 End: 09-06-2024 Admission to same day surgery center 09/06/2024 8:35 AM EST - 09/06/2024 9:23 AM EST Surgery [address] [place] [address] Johan Jimenez MD [address] [place] [address] PHACOEMULSIFICATION CATARACT IMPLANT INTRAOCULAR LENS W/O ENDOSCOPIC CYCLOPHOTOCOAGULATION [facility] Comment on above: PHACOEMULSIFICATION CATARACT IMPLANT INT RAOCULAR LENS W/O ENDOSCOPIC CYCLOPHOTOCOAGULATION Start: 09-06-2024 End: 09-06-2024 Oph bmtry prtl coher intrfrmtry io lens pwr muna OPHTHALMIC BIOMETRY BY PARTIAL COHERENCE INTERFEROMETRY W/INTRAOCULAR LENS POWER CALCULATION Combined forms of age-related cataract of right eye 09/06/2024 8:35 AM EST [facility] Start: 09-06-2024 Subsequent hospital visit by physician 09/06/2024 8:35 AM EST Hospital Encounter [facility] [address] [place] [address] Johan Jimenez MD [address] [place] [address] Combined forms of age-related cataract of right eye [H25.811] [facility] Comment on above: Combined forms of age-related cataract o f right eye [H25.811] Start: 09-06-2024 End: 09-06-2024 Xcapsl ctrc rmvl insj io lens prosth w/o ecp PHACOEMULSIFICATION CATARACT IMPLANT INTRAOCULAR LENS W/O ENDOSCOPIC CYCLOPHOTOCOAGULATION Combined forms of age-related cataract of right eye 09/06/2024 8:35 AM EST [facility] Start: 08-25-2024 End: 08-25-2024 Anesthesia consultation 08/25/2024 8:40 AM EST PAT Pre Anesthesia [address] [place] [address] 1, Pacc [address] [place] [address] pre op H&P Pre Anesthesia Comment on above: pre op H&P Start: 07-21-2024 End: 07-21-2024 Patient encounter procedure 07/21/2024 8:45 AM EST Office Visit [facility] [address] [facility] [facility] [place] [address] Johan Jimenez MD [address] [place] [address] Jimenez for cataract consult next available. Ophthalmology Comment on above: Return for Dr. Jimenez for cataract consu lt next available. Start: 07-14-2024 Advance Directive Discussion Advance Directive Discussion [facility] Start: 07-14-2023 Advance Directive Discussion Advance Directive Discussion [facility] Start: 02-12-2023 Hepatitis C antibody, confirmatory test DILATED RETINAL EXAM [facility] Start: 03-14-2022 Influenza vaccination INFLUENZA (#1) [facility] Start: 07-14-2021 ADVANCE DIRECTIVE DISCUSSION ADVANCE DIRECTIVE DISCUSSION [facility] Start: 2020 RSV Vaccine (1 - 1-dose 75+ series) RSV Vaccine (1 - 1-dose 75+ series) [facility] Start: 07-30-2019 Creatinine measurement Serum Creatinine [facility] Start: 02-11-2019 Blood count complete auto&auto difrntl wbc CBC W/AUTO DIFF WBC (34620) [facility] Work Phone: Start: 02-11-2019 Comprehensive metabolic panel METABOLIC PANEL, COMPREHENSIVE (90228) [facility] Work Phone: Start: 11-16-2018 Beta 2 glycoprotein i antibody each Antiphospholipid atb (05504) [facility] Work Phone: Start: 11-16-2018 Nuclear Ab IF (S) [Titer] SHAYNE (ANTINUCLEAR ANTIBODY) (69924) [facility] Work Phone: Start: 11-16-2018 CRP [Mass/Vol] C-REACTIVE PROTEIN (45856) [facility] Work Phone: Start: 11-16-2018 Sedimentation rate rbc non-automated SED RATE ERYTHROCYTE (40090) [facility] Work Phone: Start: 11-16-2018 Creatinine clearance CREATININE CLEARANCE (87323) [facility] Work Phone: Start: 11-16-2018 Protein (U) [Mass/Vol] Total Protein,24 Hour Urine (57317) [facility] Work Phone: Start: 11-16-2018 Procedure Education Eprescribed prescriptions (G8553) [facility] Work Phone: Start: 10-23-2018 Assay of prostate specific antigen total PSA, TOTAL - DIAGNOSTIC (03189) [facility] Work Phone: Start: 08-25-2018 Basic metabolic panel calcium total METABOLIC PANEL, BASIC (20232) [facility] Work Phone: Start: 08-24-2018 Procedure Education Eprescribed prescriptions (G8553) [facility] Work Phone: Start: 08-24-2018 Culture bct isol&prsmptv id isolate ea urine URINE JULIANA CULTURE-IDENTIFICATN (44514) [facility] Work Phone: Start: 08-24-2018 Urine albumin quantitative MICROALBUMIN: CREATININE RATIO (43149) AND (46527) [facility] Work Phone: Start: 08-24-2018 Urnls dip stick/tablet reagent auto microscopy URINALYSIS, W/ MICRO (29523) [facility] Work Phone: Start: 08-24-2018 Blood count complete auto&auto difrntl wbc CBC W/AUTO DIFF WBC (50338) [facility] Work Phone: Start: 08-24-2018 Comprehensive metabolic panel METABOLIC PANEL, COMPREHENSIVE (78876) [facility] Work Phone: Start: 02-09-2018 Procedure Education Eprescribed prescriptions (G8553) [facility] Work Phone: Start: 02-09-2018 Lipid panel LIPID PANEL (08778) [facility] Work Phone: Start: 02-09-2018 Blood count complete auto&auto difrntl wbc CBC with auto diff (12015) [facility] Work Phone: Start: 02-09-2018 Hemoglobin A1c/Hemoglobin.total mass fraction (Bld) HGB A1C (97524) [facility] Work Phone: Start: 02-09-2018 Urnls dip stick/tablet reagent auto microscopy URINALYSIS, W/ MICRO (14357) [facility] Work Phone: Start: 02-09-2018 Comprehensive metabolic panel METABOLIC PANEL, COMPREHENSIVE (70702) [facility] Work Phone: Start: 09-05-2017 Procedure Education Eprescribed prescriptions (G8553) [facility] Work Phone: Start: 2017 Blood count complete auto&auto difrntl wbc CBC W/AUTO DIFF WBC (16413) [facility] Work Phone: Start: 05-16-2017 Procedure Education Eprescribed prescriptions (G8553) [facility] Work Phone: Start: 02-11-2017 Procedure Education Eprescribed prescriptions (G8553) [facility] Work Phone: Start: 02-06-2017 Blood count manual cell count each CBC WITH MANUAL DIFF (46596) [facility] Work Phone: Comment on above: Draw in citrate tube Start: 12-12-2016 Protein mass conc LIPOPROTEIN, BLD, BY NMR (35561) [facility] Work Phone: Start: 12-12-2016 Thyrotropin Qn TSH (80575) [facility] Work Phone: Start: 12-12-2016 Blood count complete auto&auto difrntl wbc CBC W/AUTO DIFF WBC (58264) [facility] Work Phone: Start: 12-12-2016 Comprehensive metabolic panel METABOLIC PANEL, COMPREHENSIVE (85041) [facility] Work Phone: Start: 10-01-2016 Procedure Education Eprescribed prescriptions (G8553) [facility] Work Phone: Start: 07-31-2016 Patient Education Blood Glucose Test: blood sugar [facility] Work Phone: Start: 07-31-2016 Procedure Education Eprescribed prescriptions (G8553) [facility] Work Phone: Start: 06-18-2016 Procedure Education Eprescribed prescriptions (G8553) [facility] Work Phone: Start: 06-18-2016 Provider Instructions for Treatment Diet, Exercise, and Wt loss [facility] Work Phone: Start: 05-20-2016 Thyrotropin Qn TSH (74225) [facility] Work Phone: Start: 05-20-2016 Lipid panel LIPID PANEL (04367) [facility] Work Phone: Start: 05-20-2016 Blood count complete auto&auto difrntl wbc CBC W/AUTO DIFF WBC (40361) [facility] Work Phone: Start: 05-20-2016 Urine albumin quantitative MICROALBUMIN: CREATININE RATIO (55055) AND (84281) [facility] Work Phone: Start: 05-20-2016 Comprehensive metabolic panel METABOLIC PANEL, COMPREHENSIVE (18643) [facility] Work Phone: Start: 2015 Hemoglobin A1c/Hemoglobin.total mass fraction (Bld) Hemoglobin Glyclated (HGB A1C) (06472) [facility] Work Phone: Start: 2015 Comprehensive metabolic panel METABOLIC PANEL, COMPREHENSIVE (95502) [facility] Work Phone: Start: 2015 Blood count complete auto&auto difrntl wbc CBC W/AUTO DIFF WBC (81876) [facility] Work Phone: Start: 2015 Lipid panel LIPID PANEL (77184) [facility] Work Phone: Start: 05-11-2015 Provider Instructions for Treatment Diet, Exercise, and Wt loss [facility] Work Phone: Start: 05-10-2015 Lipid panel LIPID PANEL (13489) [facility] Work Phone: Start: 05-10-2015 Blood count complete auto&auto difrntl wbc CBC with auto diff (51614) [facility] Work Phone: Start: 05-10-2015 Comprehensive metabolic panel METABOLIC PANEL, COMPREHENSIVE (57521) [facility] Work Phone: Start: 05-10-2015 Urine albumin quantitative MICROALBUMIN: CREATININE RATIO (63748) AND (17390) [facility] Work Phone: Start: 05-10-2015 Hemoglobin A1c/Hemoglobin.total mass fraction (Bld) Hemoglobin Glyclated (HGB A1C) (61940) [facility] Work Phone: Start: 05-10-2015 Procedure Education Eprescribed prescriptions (G8553) [facility] Work Phone: Start: 12-23-2014 Patient Education Blood Glucose Test: blood [facility] Work Phone: Start: 12-23-2014 Procedure Education Eprescribed prescriptions (G8553) [facility] Work Phone: Start: 12-23-2014 Urnls dip stick/tablet reagent auto microscopy URINALYSIS, W/ MICRO (79514) [facility] Work Phone: Start: 12-23-2014 Urine albumin quantitative MICROALBUMIN: CREATININE RATIO (70432) AND (27183) [facility] Work Phone: Start: 12-23-2014 Comprehensive metabolic panel METABOLIC PANEL, COMPREHENSIVE (15368) [facility] Work Phone: Start: 12-23-2014 Lipid panel LIPID PANEL (23093) [facility] Work Phone: Start: 12-23-2014 Blood count manual cell count each CBC with auto diff (00192) [facility] Work Phone: Start: 08-15-2014 Urnls dip stick/tablet reagent auto microscopy URINALYSIS, W/ MICRO (90516) [facility] Work Phone: Start: 08-15-2014 Blood count complete auto&auto difrntl wbc CBC W/AUTO DIFF WBC (85395) [facility] Work Phone: Start: 08-15-2014 Comprehensive metabolic panel METABOLIC PANEL, COMPREHENSIVE (20177) [facility] Work Phone: Start: 08-15-2014 Lipid panel LIPID PANEL (48961) [facility] Work Phone: Start: 08-15-2014 Patient Education Blood Pressure: hypertension [facility] Work Phone: Start: 08-15-2014 Procedure Education Eprescribed prescriptions (G8553) [facility] Work Phone: Start: 02-08-2014 Procedure Education Eprescribed prescriptions (G8553) [facility] Work Phone: Start: 02-08-2014 Thyrotropin Qn TSH (52557) [facility] Work Phone: Start: 02-08-2014 Lipid panel LIPID PANEL (16491) [facility] Work Phone: Start: 02-08-2014 Blood count manual cell count each CBC WITH MANUAL DIFF (09954) [facility] Work Phone: Start: 02-08-2014 Comprehensive metabolic panel METABOLIC PANEL, COMPREHENSIVE (96169) [facility] Work Phone: Start: 02-08-2014 Urine albumin quantitative MICROALBUMIN: CREATININE RATIO (00226) AND (68062) [facility] Work Phone: Start: 02-08-2014 25 hydroxy includes fractions if performed Vitamin D Hydroxy (44404) [facility] Work Phone: Start: 08-20-2013 Comprehensive metabolic panel METABOLIC PANEL, COMPREHENSIVE (78730) [facility] Work Phone: Start: 08-20-2013 Lipid panel LIPID PANEL (95682) [facility] Work Phone: Start: 08-20-2013 Blood count manual cell count each CBC WITH MANUAL DIFF (11395) [facility] Work Phone: Start: 05-11-2013 Assay of blood/uric acid URIC ACID BLOOD (93853) [facility] Work Phone: Start: 05-11-2013 Basic metabolic panel calcium total Metabolic Panel, Basic (92460) [facility] Work Phone: Start: 05-10-2013 Provider Instructions for Treatment Diet, Exercise, and Wt loss [facility] Work Phone: Start: 05-10-2013 Assay of blood/uric acid URIC ACID BLOOD (57597) [facility] Work Phone: Start: 05-10-2013 Lipid panel LIPID PANEL (49462) [facility] Work Phone: Start: 05-10-2013 Urine albumin quantitative MICROALBUMIN: CREATININE RATIO (81147) AND (18744) [facility] Work Phone: Start: 05-10-2013 Urnls dip stick/tablet reagent auto microscopy URINALYSIS, W/ MICRO (12967) [facility] Work Phone: Start: 05-10-2013 Comprehensive metabolic panel METABOLIC PANEL, COMPREHENSIVE (83599) [facility] Work Phone: Start: 05-10-2013 Blood count manual cell count each CBC WITH MANUAL DIFF (71958) [facility] Work Phone: Start: 01-04-2013 Provider Instructions for Treatment Diet, Exercise, and Wt loss [facility] Work Phone: Start: 01-04-2013 Lipid panel LIPID PANEL (38523) [facility] Work Phone: Start: 01-04-2013 Urnls dip stick/tablet reagent auto microscopy URINALYSIS, W/ MICRO (60476) [facility] Work Phone: Start: 01-04-2013 Urine albumin quantitative MICROALBUMIN: CREATININE RATIO (42259) AND (96949) [facility] Work Phone: Start: 01-04-2013 Comprehensive metabolic panel METABOLIC PANEL, COMPREHENSIVE (07812) [facility] Work Phone: Start: 01-04-2013 Blood count manual cell count each CBC WITH MANUAL DIFF (92040) [facility] Work Phone: Start: 01-04-2013 Assay of blood/uric acid URIC ACID BLOOD (76253) [facility] Work Phone: Start: 09-01-2012 Patient Education High Blood Pressure (Essential Hypertension) *: blood pressure problems [facility] Work Phone: Start: 09-01-2012 Comprehensive metabolic panel METABOLIC PANEL, COMPREHENSIVE (73067) [facility] Work Phone: Start: 09-01-2012 Lipid panel LIPID PANEL (30173) [facility] Work Phone: Start: 09-01-2012 Blood count manual cell count each CBC WITH MANUAL DIFF (77504) [facility] Work Phone: Start: 06-30-2012 Basic metabolic panel calcium total Metabolic Panel, Basic (24743) [facility] Work Phone: Start: 06-26-2012 Blood count manual cell count each CBC WITH MANUAL DIFF (96308) [facility] Work Phone: Start: 06-26-2012 Basic metabolic panel calcium total Metabolic Panel, Basic (74423) [facility] Work Phone: Start: 04-28-2012 Patient Education Diabetes and Illness: diabetes mellitus [facility] Work Phone: Start: 04-28-2012 Provider Instructions for Treatment Diet, Exercise, and Wt loss [facility] Work Phone: Start: 04-08-2012 Lipid panel LIPID PANEL (62927) [facility] Work Phone: Start: 04-08-2012 Comprehensive metabolic panel METABOLIC PANEL, COMPREHENSIVE (41284) [facility] Work Phone: Start: 03-14-2012 Medicare Annual Wellness Visit Medicare Annual Wellness Visit [facility] Start: 01-27-2012 Comprehensive metabolic panel Metabolic Panel, Comprehensive (20519) [facility] Work Phone: Start: 01-27-2012 Lipid panel Lipid Panel (81638) [facility] Work Phone: Start: 01-27-2012 Blood count manual cell count each CBC with manual diff (88852) [facility] Work Phone: Start: 01-27-2012 Thyrotropin Qn TSH (86691) [facility] Work Phone: Start: 01-07-2012 Patient Education Diabetes and Illness: diabetes [facility] Work Phone: Start: 01-07-2012 Blood count manual cell count each CBC WITH MANUAL DIFF (53579) [facility] Work Phone: Start: 01-07-2012 Comprehensive metabolic panel METABOLIC PANEL, COMPREHENSIVE (38972) [facility] Work Phone: Start: 09-10-2011 Provider Instructions for Treatment Diet, Exercise, and Wt loss [facility] Work Phone: Start: 09-10-2011 Blood count manual cell count each CBC WITH MANUAL DIFF (13454) [facility] Work Phone: Start: 09-10-2011 Comprehensive metabolic panel METABOLIC PANEL, COMPREHENSIVE (27951) [facility] Work Phone: Start: 09-10-2011 Lipid panel LIPID PANEL (47696) [facility] Work Phone: Start: 07-23-2011 Assay of prostate specific antigen total PSA (PROSTATE SPECIFIC ANTIGEN) (26541) [facility] Work Phone: Start: 07-23-2011 Protein mass conc PSA (PROSTATE SPECIFIC ANTIGEN) (52499) [facility] Work Phone: Start: 07-23-2011 Urine albumin quantitative MICROALBUMIN: CREATININE RATIO (24159) AND (27846) [facility] Work Phone: Start: 07-23-2011 Urinalysis qual/semiquant except immunoassays URINALYSIS (65714) [facility] Work Phone: Start: 07-23-2011 Blood count manual cell count each CBC with manual diff (43756) [facility] Work Phone: Start: 07-23-2011 Thyrotropin Qn TSH (47219) [facility] Work Phone: Start: 07-23-2011 Comprehensive metabolic panel METABOLIC PANEL, COMPREHENSIVE (01148) [facility] Work Phone: Start: 07-23-2011 Lipid panel LIPID PANEL (61356) [facility] Work Phone: Start: 07-31-2010 Assay of prostate specific antigen total PSA (PROSTATE SPECIFIC ANTIGEN) (V76.44) [facility] Work Phone: Start: 07-31-2010 Protein mass conc PSA (PROSTATE SPECIFIC ANTIGEN) (V76.44) [facility] Work Phone: Start: 07-31-2010 Lipid panel LIPID PANEL (95630) [facility] Work Phone: Start: 07-31-2010 Urine albumin quantitative MICROALBUMIN: CREATININE RATIO (15363) AND (45185) [facility] Work Phone: Start: 07-31-2010 Comprehensive metabolic panel METABOLIC PANEL, COMPREHENSIVE (27911) [facility] Work Phone: Start: 02-23-2010 Thyrotropin Qn TSH (06272) [facility] Work Phone: Start: 02-23-2010 Comprehensive metabolic panel METABOLIC PANEL, COMPREHENSIVE (11678) [facility] Work Phone: Start: 02-23-2010 Lipid panel LIPID PANEL (02071) [facility] Work Phone: Start: 11-24-2009 Urine albumin quantitative MICROALBUMIN: CREATININE RATIO (86448) AND (89380) [facility] Work Phone: Start: 11-24-2009 Comprehensive metabolic panel METABOLIC PANEL, COMPREHENSIVE (67582) [facility] Work Phone: Start: 11-24-2009 Hepatic function panel HEPATIC FUNCTION PANEL (30203) [facility] Work Phone: Start: 11-24-2009 Lipid panel LIPID PANEL (12512) [facility] Work Phone: Start: 11-24-2009 Provider Instructions for Treatment Diet, Exercise, and Wt loss [facility] Work Phone: Start: 08-01-2009 Provider Instructions for Treatment Diet, Exercise, and Wt loss [facility] Work Phone: Start: 08-01-2009 Comprehensive metabolic panel METABOLIC PANEL, COMPREHENSIVE (71864) [facility] Work Phone: Start: 08-01-2009 Blood count manual cell count each CBC WITH MANUAL DIFF (20307) [facility] Work Phone: Start: 08-01-2009 Urnls dip stick/tablet reagent auto microscopy URINALYSIS, W/ MICRO (56641) [facility] Work Phone: Start: 08-01-2009 Assay of prostate specific antigen total PSA (PROSTATE SPECIFIC ANTIGEN) (V76.44) [facility] Work Phone: Start: 08-01-2009 Protein mass conc PSA (PROSTATE SPECIFIC ANTIGEN) (V76.44) [facility] Work Phone: Start: 08-01-2009 Lipid panel LIPID PANEL (38771) [facility] Work Phone: Start: 08-01-2009 Hepatic function panel HEPATIC FUNCTION PANEL (22248) [facility] Work Phone: Start: 04-07-2009 Provider Instructions for Treatment Diet and Exercise [facility] Work Phone: Start: 04-07-2009 Comprehensive metabolic panel METABOLIC PANEL, COMPREHENSIVE (70923) [facility] Work Phone: Start: 04-07-2009 Lipid panel LIPID PANEL (88103) [facility] Work Phone: Start: 03-28-2009 Comprehensive metabolic panel METABOLIC PANEL, COMPREHENSIVE (21548) [facility] Work Phone: Start: 03-28-2009 Blood count manual cell count each CBC WITH MANUAL DIFF (17697) [facility] Work Phone: Start: 03-28-2009 Lipid panel LIPID PANEL (72948) [facility] Work Phone: Start: 11-15-2008 Basic metabolic panel calcium total Metabolic Panel, Basic (38209) [facility] Work Phone: Start: 08-16-2008 Provider Instructions for Treatment Diet and Exercise [facility] Work Phone: Start: 08-16-2008 Lipid panel LIPID PANEL (51289) [facility] Work Phone: Start: 08-16-2008 Urnls dip stick/tablet rgnt auto w/o microscopy URINALYSIS W/O MICRO (47998) [facility] Work Phone: Start: 08-16-2008 Thyrotropin Qn TSH (79273) [facility] Work Phone: Start: 08-16-2008 Comprehensive metabolic panel METABOLIC PANEL, COMPREHENSIVE (94711) [facility] Work Phone: Start: 08-16-2008 Blood count manual cell count each CBC WITH MANUAL DIFF (24836) [facility] Work Phone: Start: 08-16-2008 Assay of prostate specific antigen total PSA (PROSTATE SPECIFIC ANTIGEN) (V76.44) [facility] Work Phone: Start: 08-16-2008 Protein mass conc PSA (PROSTATE SPECIFIC ANTIGEN) (V76.44) [facility] Work Phone: Start: 08-16-2008 Urine albumin quantitative MICROALBUMIN: CREATININE RATIO (31213) AND (06815) [facility] Work Phone: Start: 06-12-2008 Pneumococcal Vaccine: 50+ (2 of 2 - PCV) Pneumococcal Vaccine: 50+ (2 of 2 - PCV) [facility] Start: 05-06-2008 Provider Instructions for Treatment Diet and Exercise [facility] Work Phone: Start: 05-06-2008 Urnls dip stick/tablet rgnt auto w/o microscopy URINALYSIS W/O MICRO (03120) [facility] Work Phone: Start: 05-06-2008 Hepatic function panel HEPATIC FUNCTION PANEL (32723) [facility] Work Phone: Start: 05-06-2008 Lipid panel LIPID PANEL (04271) [facility] Work Phone: Start: 05-06-2008 Basic metabolic panel calcium total Metabolic Panel, Basic (48836) [facility] Work Phone: Start: 01-01-2008 Comprehensive metabolic panel METABOLIC PANEL, COMPREHENSIVE (77011) [facility] Work Phone: Start: 01-01-2008 Lipid panel LIPID PANEL (49927) [facility] Work Phone: Start: 01-01-2008 Hepatic function panel HEPATIC FUNCTION PANEL (71848) [facility] Work Phone: Start: 09-15-2007 Provider Instructions for Treatment Diet and Exercise [facility] Work Phone: Start: 09-15-2007 Hepatic function panel HEPATIC FUNCTION PANEL (17635) [facility] Work Phone: Start: 09-15-2007 Lipid panel LIPID PANEL (59135) [facility] Work Phone: Start: 06-12-2007 Thyrotropin Qn TSH (63916) [facility] Work Phone: Start: 06-12-2007 Assay of prostate specific antigen total PSA (PROSTATE SPECIFIC ANTIGEN) (16443) [facility] Work Phone: Start: 06-12-2007 Protein mass conc PSA (PROSTATE SPECIFIC ANTIGEN) (11562) [facility] Work Phone: Start: 06-12-2007 Comprehensive metabolic panel METABOLIC PANEL, COMPREHENSIVE (96753) [facility] Work Phone: Start: 06-12-2007 Blood count manual cell count each CBC WITH MANUAL DIFF (74866) [facility] Work Phone: Start: 06-12-2007 Hepatic function panel HEPATIC FUNCTION PANEL (51614) [facility] Work Phone: Start: 06-12-2007 Lipid panel LIPID PANEL (93049) [facility] Work Phone: Start: 08-19-2006 Comprehensive metabolic panel METABOLIC PANEL, COMPREHENSIVE (88828) [facility] Work Phone: Start: 08-19-2006 Thyrotropin Qn TSH (29516) [facility] Work Phone: Start: 08-19-2006 Lipid panel LIPID PANEL (97905) [facility] Work Phone: Start: 07-18-2006 Provider Instructions for Treatment [facility] Work Phone: Start: 1995 SHINGRIX VACCINE (1 of 2) SHINGRIX VACCINE (1 of 2) [facility] Start: 1990 Diabetes Screening Diabetes Screening [facility] Start: 1964 Urine microalbumin profile [facility] Start: 1963 ANNUAL PCP TEAM CHRONIC DISEASE VISIT ANNUAL PCP TEAM CHRONIC DISEASE VISIT [facility] Start: 1963 Anxiety Screening Anxiety Screening [facility] Start: 1963 BP Controlled (<130/80) BP Controlled (<130/80) [facility] Start: 1963 Depression Screening Depression Screening [facility] Start: 1963 Hepatitis B surface antibody level LDL CHOLESTEROL [facility] Start: 1963 HEPATITIS C SCREENING HEPATITIS C SCREENING [facility] Start: 1963 Hepatitis C screening Hepatitis C Screening [facility] Start: 1957 Adult depression screening assessment DEPRESSION SCREENING [facility] Start: 1955 3 comp foot exam completed DIABETIC FOOT EXAM [facility] Start: 1955 Diabetic foot examination Diabetic Foot Exam [facility] ic Start: 1955 Hepatitis B screening URINE ALBUMIN:CREATININE RATIO [facility] Start: 1951 PNEUMOCOCCAL: 65+ (1 - PCV) PNEUMOCOCCAL: 65+ (1 - PCV) [facility] Start: 1950 Hemoglobin A1c measurement HbA1C [facility]x Start: 1950 Hemoglobin A1c/Hemoglobin.total in Blood HBA1C [facility] Blood chemistry [facility] Work Phone: Blood chemistry [facility] Hemoglobin A1c/Hemoglobin.total in Blood [facility] Lipid 1996 panel - S padmini or Plasma [facility] Oph bmtry prtl coher intrfrmtry io lens pwr muna OPHTHALMIC BIOMETRY BY PARTIAL COHERENCE INTERFEROMETRY W/INTRAOCULAR LENS POWER CALCULATION Combined forms of age-related cataract of both eyes [facility] Oph bmtry prtl coher intrfrmtry io lens pwr muna OPHTHALMIC BIOMETRY BY PARTIAL COHERENCE INTERFEROMETRY W/INTRAOCULAR LENS POWER CALCULATION Combined forms of age-related cataract of both eyes [facility] Urine microalbumin/creatinine ratio measurement [facility] Xcapsl ctrc rmvl ins j io lens prosth w/o ecp PHACOEMULSIFICATION CATARACT IMPLANT INTRAOCULAR LENS W/O ENDOSCOPIC CYCLOPHOTOCOAGULATION Combined forms of age-related cataract of both eyes [facility] Xcapsl ctrc rmvl ins j io lens prosth w/o ecp PHACOEMULSIFICATION CATARACT IMPLANT INTRAOCULAR LENS W/O ENDOSCOPIC CYCLOPHOTOCOAGULATION Combined forms of age-related cataract of both eyes [facility] Work Phone: [facility] Work Phone: [facility] Work Phone: [facility] Work Phone: [facility] Work Phone: [facility] Work Phone: [facility] Work Phone: [facility] Work Phone: [facility] Work Phone[facility] Work Phone: [facility] Work Phone: [facility] Work Phone[facility] Work Phone: [facility] Work Phone: [facility] Work Phone: [facility] Work Phone: [facility] Work Phone: [facility] Work Phone: [facility] Work Phone: [facility] Work Phone: [facility] Work Phone: [facility] Work Phone: [facility] Work Phone: [facility] Work Phone: [facility] Work Phone: [facility] Work Phone: [facility] Work Phone: [facility] Work Phone: [facility] Work Phone: [facility] Work Phone: [facility] Work Phone: [facility] Work Phone: [facility] Immunizations Immunization Date Immunization Notes Care Provider [facility] 05-26-2024 influenza virus vaccine, unspecified formulation Franklin Tony OD Work Phone: [facility] 10-04-2020 Covjg VossModerna) Dr. Magi Schreiber Work Phone: [facility] 09-06-2020 Rusty Thomasa) Dr. Magi Schreiber Work Phone: [facility] 06-12-2007 pneumococcal polysaccharide vaccine, 23 valent Lola Fast [facility] Work Phone: Comment on above: Lot #[id number] [id number] by Florence Ro LPN Payers Date Payer Category Payer Self-pay [id number] 2022 Medicare [id number] 2017 Private Health Insurance [id number] 2016 Unknown [id number] 2012 Medicare [id number] 2012 Medicare [id number] 2012 Medicare [id number] 2011 Unknown [id number] 2004 Unknown [id number] 1945 Unknown [id number] 2.16.84 0.1.293218.3.579.2.716 1945 Unknown [id number] 2.16.8 40.1.524687.3.579.2.627 Unknown Unknown [id number] 2.16.8 40.1.881875.3.579.2.462 Unknown [id number] 2.16.8 40.1.238011.3.579.2.462 Unknown [id number] 2.16.8 40.1.234505.3.579.2.462 Unknown [id number] 2.16.8 40.1.424221.3.579.2.462 Unknown [id number] 2.16.8 40.1.936841.3.579.2.462 Unknown [id number] 2.16.8 40.1.098125.3.579.2.462 Unknown [id number] 2.16.8 40.1.123063.3.579.2.462 Unknown [id number] 2.16.8 40.1.529107.3.579.2.462 Unknown [id number] 2.16.8 40.1.102367.3.579.2.462 Unknown [id number] 2.16.8 40.1.440555.3.579.2.462 Unknown [id number] 2.16.8 40.1.388250.3.579.2.462 Unknown [id number] 2.16.8 40.1.634183.3.579.2.462 Unknown [id number] 2.16.8 40.1.679450.3.579.2.462 Unknown [id number] 2.16.8 40.1.758714.3.579.2.462 Unknown [id number] 2.16.8 40.1.594806.3.579.2.462 Unknown [id number] 2.16.8 40.1.021450.3.579.2.462 Unknown [id number] 2.16.8 40.1.234219.3.579.2.462 Unknown [id number] 2.16.8 40.1.535033.3.579.2.462 Unknown [id number] 2.16.8 40.1.857268.3.579.2.462 Unknown [id number] 2.16.8 40.1.581536.3.579.2.462 Unknown [id number] 2.16.8 40.1.006118.3.579.2.462 Unknown [id number] 2.16.8 40.1.048067.3.579.2.462 Unknown [id number] 2.16.8 40.1.133580.3.579.2.462 Unknown [id number] 2.16.8 40.1.802021.3.579.2.462 Unknown [id number] 2.16.8 40.1.518957.3.579.2.462 Unknown [id number] 2.16.8 40.1.506132.3.579.2.462 Unknown [id number] 2.16.8 40.1.509929.3.579.2.462 Unknown [id number] 2.16.8 40.1.066182.3.579.2.462 Unknown [id number] 2.16.8 40.1.255600.3.579.2.462 Unknown [id number] 2.16.8 40.1.524758.3.579.2.462 Unknown [id number] 2.16.8 40.1.125152.3.579.2.462 Unknown [id number] 2.16.8 40.1.623856.3.579.2.462 Unknown [id number] 2.16.8 40.1.437099.3.579.2.462 Unknown [id number] 2.16.8 40.1.894347.3.579.2.462 Unknown [id number] 2.16.8 40.1.054156.3.579.2.462 Unknown [id number] 2.16.8 40.1.524422.3.579.2.462 Unknown [id number] 2.16.8 40.1.628160.3.579.2.462 Unknown [id number] 2.16.8 40.1.858257.3.579.2.462 Social History Date Type Detail Facility Start: 07-01-2024 End: 08-25-2024 Caffeine Use Former smoker [facility] Work Phone: Comment on above: 6 QD Tobacco Use: Former smoker. [facility] Work Phone: Comment on above: Remotely quit tobacc o use - 10 yrs ago Start: 11-19-2021 End: 09-09-2023 Tobacco smoking status MEIS Unknown if ever smoked [facility] Start: 1945 Sex Assigned At Male [facility] Start: 05-22-2018 End: 09-09-2023 Tobacco smoking status NHIS Ex-smoker [facility] End: 05-22-1978 History of tobacco use Current smoker [facility] End: 05-22-1978 History of tobacco use Cigarette Smoker [facility] Start: 05-22-2018 End: 07-01-2024 Tobacco use and exposure Smokeless tobacco non-user [facility] Start: 03-19-2022 End: 01-20-2025 Alcohol intake Current non-drinker of alcohol (finding) [facility] Start: 1945 Sex Assigned At Not on file [facility] Start: 02-09-2022 End: 02-19-2022 Exposure to SARS-CoV-2 (event) Not sure [facility] Work Phone: Tobacco smoking status No Smoking Status Entered [facility] Start: 07-01-2024 End: 08-25-2024 Tobacco use panel [facility] National Score (1-100), lower number is lower risk 46 [facility] Start: 10-08-2024 End: 10-18-2024 Sex Male (finding) [facility] Medical Equipment Procedure Code Equipment Code Equipment Origin al Text Equipment Identifier Dates [id number] Nora on [facility] - [id number] Start: 09-06-2024 Comment on above: Description: -0.08 Cca0t0.200 Nora on [facility] - [id number] Start: 12-21-2024 Comment on above: Description: -0.05 Clinical Notes 08-24-2020 to 01-26-2025 Note Date & Type Note Facility 01-26-2025 Evaluation note Diagnosis Onset Date Resolution Cataract acute January 26 10:25am Diarrhea acute January 26 10:25am Diastasis recti acute January 10:25am Essential (primary) hypertension chronic January 26, 2025 10:25am Type 2 diabetes mellitus chronic January 26, 2025 10:25am Chronic kidney disease (CKD) chronic February 15, 2025 8:49am Dilated cardiomyopathy chronic February 15, 2025 8:49am Essential (primary) hypertension chronic February 15, 2025 8:49am Hyperlipidemia chronic February 8:49am Implantable cardioverter-defibr illator (ICD) in situ August 24, 2020 chronic February 15, 2025 8:49am Type 2 diabetes mellitus chronic February 15, 2025 8:49am Hyperkalemia resolved February 15, 2025 8:49am [facility] Work Phone: 1(352) 941-962107-10-2025 NoteHNO ID: [id number] Author: FRANKLIN TONY OD Service: ? Author Type: PEDIATRIC PHYSICIAN Type: Progress Notes Filed: 01/20/2025 10:41 Note Text: 1. Combined forms of age-related cataract of both eyes (Primary) 2. Pseudophakia Doing great 1 month PO D/C all drops Finalized spec rx 3. Other optic atrophy, bilateral -seen by by Antwan in Jul 2018. MRI with bilateral optic nerve atrophy -stable -main complaint is sensitivity to light - OCT OPTIC NERVE CIRRUS OU (BOTH EYES) with diffuse nerve fiber layer thinning both eyes - johansen visual field (HVF) with diffuse con 4. Type 2 diabetes mellitus without retinopathy (HCC) Educated patient to continue care and current treatment regimen with primary care doctor and/or mother repairer to maintain optimum levels as they are important to avoid ocular complications Encouraged patient to call the office immediately with any changes to vision or visual concerns 5. Epiretinal membrane (ERM) of both eyes Mild- stable Monitor 6. Posterior vitreous detachment of both eyes Follow-up in 1 year for diabetic eye exam or sooner as needed I have confirmed and edited as necessary the relevant HPI, ophthalmic history, ROS, and the neuro exam findings as obtained by others. I have seen and examined Sherrell Genao. I have discussed the case and the management of this patient's care with the Resident/Fellow, if applicable. I also have reviewed and agree with the assessment and plan as stated above and agree with all of its relevant components. Franklin Tony, MONY January 20, 2025 10:39 [facility]07-10-2025 History of Present illness Narrative* Franklin Tony, OD - 01/20/2025 10:39 AM EDT 1. Combined forms of age-related cataract of both eyes (Primary) 2. Pseudophakia Doing great 1 month PO D/C all drops Finalized spec rx 3. Other optic atrophy, bilateral -seen by by Antwan in Jul 2018. MRI with bilateral optic nerve atrophy -stable -main complaint is sensitivity to light - OCT OPTIC NERVE CIRRUS OU (BOTH EYES) with diffuse nerve fiber layer thinning both eyes - johansen visual field (HVF) with diffuse con 4. Type 2 diabetes mellitus without retinopathy (HCC) Educated patient to continue care and current treatment regimen with primary care doctor and/or mother repairer to maintain optimum levels as they are important to avoid ocular complications Encouraged patient to call the office immediately with any changes to vision or visual concerns 5. Epiretinal membrane (ERM) of both eyes Mild- stable Monitor 6. Posterior vitreous detachment of both eyes Follow-up in 1 year for diabetic eye exam or sooner as needed I have confirmed and edited as necessary the relevant HPI, ophthalmic history, ROS, and the neuro exam findings as obtained by others. I have seen and examined Sherrell Genao. I have discussed the case and the management of this patient's care with the Resident/Fellow, if applicable. I also have reviewed and agree with the assessment and plan as stated above and agree withall of its relevant components. Franklin Tony, MONY January 20, 2025 10:39 AM documented in this encounterWadsworth-[facility]06-16-2025 NoteHNO ID: [id number] Author: FRANKLIN TONY OD Service: ? Author Type: PEDIATRIC PHYSICIAN Type: Progress Notes Filed: 12/27/2024 11:24 Note Text: 1. Combined forms of age-related cataract of both eyes (Primary) 2. Pseudophakia Patient doing well PO. Decrease drops as prescribed in operated eye. Follow-up in 1 month for final PO. 3. Other optic atrophy, bilateral -seen by by Antwan in Jul 2018. MRI with bilateral optic nerve atrophy -stable -main complaint is sensitivity to light 4. Type 2 diabetes mellitus without retinopathy (HCC) Monitor 5. Epiretinal membrane (ERM) of both eyes Stable Follow-up as scheduled for final PO Franklin Tony, MONY December 27, 2024 11:23 [facility]06-16-2025 History of Present illness Narrative* Franklin Tony, OD - 12/27/2024 11:23 AM EDT 1. Combined forms of age-related cataract of both eyes (Primary) 2. Pseudophakia Patient doing well PO. Decrease drops as prescribed in operated eye. Follow-up in 1 month for finalPO. 3. Other optic atrophy, bilateral -seen by by Antwan in Jul 2018. MRI with bilateral optic nerve atrophy -stable -main complaint is sensitivity to light 4. Type 2 diabetes mellitus without retinopathy (HCC) Monitor 5. Epiretinal membrane (ERM) of both eyes Stable Follow-up as scheduled for final PO Franklin Tony, OD December 27, 2024 11:23 AM documented in this encounterWadsworth-[facility]06-13-2025 Telephone encounter Note * Telephone Encounter - Meredith Arnold OA - 12/24/2024 3:46 PM EDT Sent a secured chat message to Dr. Jimenez to have him sign off on this refill request. JANA Hernandez [facility]06-13-2025 Miscellaneous Notes* Telephone Encounter - Meredith Arnold OA - 12/24/2024 3:46 PM EDT Sent a secured chat message to Dr. Jimenez to have him sign off on this refill request. JANA Hernandez * Telephone Encounter - Marija Romero - 12/24/2024 11:20 AM EDT Patient's Ghislaine calling in to see if this will be filled today. She is just concerned since heis out of the moxifloxacin. Please review and advise. Marija Romero December 24, 2024 11:22 AM * Telephone Encounter - Ellen Mora - 12/23/2024 3:10 PM EDT Patient has been identified by name and date of : Yes Last office visit in this department: Visit date not found RX INSTRUCTIONS: Patient aware RX will be sent to pharmacy. No need to notify patient. Patient phones requesting refills as follows: Requested Prescriptions Pending Prescriptions Disp Refills moxifloxacin (VIGAMOX) 0.5 % ophthalmic solution 3 mL 0 Sig: Use 1 drop in the left eye four times daily. Start drops 2 (two) days prior to your scheduled surgery date 4 four times a day . Use one drop the morning of surgery. Restart following surgery as per instructions given keTORolac (ACULAR) 0.5 % ophthalmic solution 5 mL 1 Sig: Use 1 drop in the left eye four times daily. Start drops 2 (two) days prior to your scheduled surgery date 4 four times a day . Use one drop the morning of surgery. Restart following surgery as per instructions given prednisoLONE acetate (PRED FORTE) 1 % ophthalmic suspension 15 mL 1 Sig: Use 1 drop in the right eye four times daily. Start drops 2 (two) days prior to your scheduledsurgery date 4 four times a day . Use one drop the morning of surgery. Restart following surgery asper instructions given. Please review and advise. Ellen Mora documented in this encounterWadsworth-Rittman [facility]06-13-2025 Telephone encounter Note * Telephone Encounter - Marija Romero - 12/24/2024 11:20 AM EDT Patient's Ghislaine calling in to see if this will be filled today. She is just concerned since heis out of the moxifloxacin. Please review and advise. Marija Romero December 24, 2024 11:22 AM [facility]06-12-2025 Telephone encounter Note* Telephone Encounter - Ellen Mora - 12/23/2024 3:10 PM EDT Patient has been identified by name and date of : Yes Last office visit in this department: Visit date not found RX INSTRUCTIONS: Patient aware RX will be sent to pharmacy. No need to notify patient. Patient phones requesting refills as follows: Requested Prescriptions Pending Prescriptions Disp Refills moxifloxacin (VIGAMOX) 0.5 % ophthalmic solution 3 mL 0 Sig: Use 1 drop in the left eye four times daily. Start drops 2 (two) days prior to your scheduled surgery date 4 four times a day . Use one drop the morning of surgery. Restart following surgery as per instructions given keTORolac (ACULAR) 0.5 % ophthalmic solution 5 mL 1 Sig: Use 1 drop in the left eye four times daily. Start drops 2 (two) days prior to your scheduled surgery date 4 four times a day . Use one drop the morning of surgery. Restart following surgery as per instructions given prednisoLONE acetate (PRED FORTE) 1 % ophthalmic suspension 15 mL 1 Sig: Use 1 drop in the right eye four times daily. Start drops 2 (two) days prior to your scheduledsurgery date 4 four times a day . Use one drop the morning of surgery. Restart following surgery asper instructions given. Please review and advise. Ellen Mora [facility]06-11-2025 NoteHNO ID: [id number] Author: JOHAN JIMENEZ MD Service: ? Author Type: Physician Type: Progress Notes Filed: 12/22/2024 16:19 Note Text: Assessment and Plan 1. 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 Photophobia of both eyes 3. Visual field loss -seen by by Antwan in Jul 2018. MRI with bilateral optic nerve atrophy -stable -main complaint is sensitivity to light - OCT OPTIC NERVE CIRRUS OU (BOTH EYES) with diffuse nerve fiber layer thinning both eyes - johansen visual field (HVF) with diffuse constriction left eye > right eye 4. Type 2 diabetes mellitus without retinopathy (HCC) -no diabetic retinopathy both eyes 5. 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 Dry eye syndrome both eyes -significant punctate epithelial erosions both eyes -contributing to decreased vision 7. Epiretinal membrane both eyes -preserved foveal contour both eyes Plan: -Continue blood sugar and blood pressure control -feels that vision much improved right eye post cataract surgery!! -drops per protocol -precautions -artificial tears three times a day - helping greatly -zaditor twice a day as needed for itching I have confirmed and edited as necessary the relevant ophthalmic history, ROS, and the neuro exam findings as obtained by others. I have seen and examined Sherrell Genao. I have discussed the case and the management of this patient's care with the Resident/Fellow, if applicable. I also have reviewed and agree with the assessment and plan as stated above and agree with all of its relevant components. Johan Jimenez, [facility]06-11-2025 History of Present illness Narrative* Johan Jimenez MD - 12/22/2024 4:17 PM EDT Assessment and Plan 1. 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 Photophobia of both eyes 3. Visual field loss -seen by by Antwan in Jul 2018. MRI with bilateral optic nerve atrophy -stable -main complaint is sensitivity to light - OCT OPTIC NERVE CIRRUS OU (BOTH EYES) with diffuse nerve fiber layer thinning both eyes - johansen visual field (HVF) with diffuse constriction left eye > right eye 4. Type 2 diabetes mellitus without retinopathy (HCC) -no diabetic retinopathy both eyes 5. 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 Dry eye syndrome both eyes -significant punctate epithelial erosions both eyes -contributing to decreased vision 7. Epiretinal membrane both eyes -preserved foveal contour both eyes Plan: -Continue blood sugar and blood pressure control -feels that vision much improved right eye post cataract surgery!! -drops per protocol -precautions -artificial tears three times a day - helping greatly -zaditor twice a day as needed for itching I have confirmed and edited as necessary the relevant ophthalmic history, ROS, and the neuro exam findings as obtained by others. I have seen and examined Sherrell Genao. I have discussed the case and the management of this patient's care with the Resident/Fellow, if applicable. I also have reviewed and agree with the assessment and plan as stated above and agree withall of its relevant components. Johan Jimenez MD documented in this encounterWadsworth-Ritt[facility]06-11-2025 Instructions* Patient Instructions* Johan Jimenez MD - 12/22/2024 4:17 PM EDT Images from the original note were not included. documented in this encounterWadsworth-Rittman [facility]06-02-2025 History and physical note * Jose Correia APRN.FILTERING MACHINE TENDER HELPER - 12/13/2024 10:07 AM EDT Images from the original note were not included. 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 BMI 31.0-31.9,adult Assessment: Body mass index is 31.42 kg/m . Hypertension Assessment: Stable and compliant with medications. Follows with PCP. Last 3 Encounter BP Readings: Date: BP: 12/13/2024 128/84 09/06/2024 145/82 08/25/2024 108/70 Implantable cardioverter-defibrillator (ICD) in situ Assessment: Follows Cardiology - Dr. Hilliard Denies any heart palpitations, edema, chest pain, shortness of breath, syncope, activity intolerance, or dizziness. Chronic combined systolic and diastolic heart failure (HCC) Assessment: Compliant on medications. Appears euvolemic, denies new or worsening cardiac symptoms. Follows Cardiology Type 2 diabetes mellitus without retinopathy (HCC) Assessment: Reports compliance to medication. Reports BS checks ranging in the 120s fasting. Encouraged lifestyle modifications. Last hemoglobin A1C around 7% per patient. Pulmonary arterial hypertension (HCC) Assessment: per [facility], records requested. Nonrheumatic mitral valve regurgitation Assessment: per [facility], records requested Bilateral carotid artery stenosis Assessment: chronic, stable, no surgical interventions, following cardiology, records requested. ANESTHESIA FINDINGS: Intubation History: No history of difficult intubation. No abnormal airway history Significant Anesthesia Considerations: none Airway History: No history of difficult airway No abnormal airway history Perez Activity Status Index: METS: Walk indoors, such as around the house (1.75 METs) Do light work around the house, such as dusting or washing dishes (2.70 METs) Take care of self; that is eating, dressing, bathing, using the toilet (2.75 METs) Walk a block or two on level ground (2.75 METs) Do moderate work around the house, such as vacuuming, sweeping floors, or carrying in groceries (3.50 METs) Climb a flight of stairs or walk up a hill (5.50 METs) DASI Score: 18.95 Patient denies any chest pain or undue shortness of breath with the above physical activity. Clinical Frailty Scale: 3. Well, with treated comorbid disease STOP-Bang Score: Has or is being treated for high blood pressure Patient over 50 years old Male patient Denies snoring loudly Denies feeling tired, fatigued, or sleepy during the daytime Has not been observed to stop breathing or choking/gasping during sleep BMI less than or equal to 35 kg/m^2 Does not have a large neck STOP-Bang Score: 3 I - PHYSICAL EVALUATION AIRWAY Patient intubated: No. Tracheostomy tube not present Mallampati: II. TM distance: >3 FB. Neck ROM: full ROM without neurological symptoms. Mouth opening: adequate. Short neck: no. Thick neck: no DENTAL Dental findings: teeth intact. Additional comments: + scattered crowns. II - ANESTHESIA PLAN Anesthetic plan additional comments: *PACC/TCI - anesthesia choice. Beta Ken Monitoring Plan Post Procedure Analgesic Plan Prepared for Surgery: optimally prepared for surgery. CONSULTS: Patient does not require consults for optimization at this time Planned Anesthetic: anesthesia choice The Following Tests/Procedures Have Been Initiated: No orders of the defined types were placed in this encounter. REASON FOR VISIT: Sherrell Genao is a 79 year old male who is scheduled for Procedure(s): PHACOEMULSIFICATION CATARACT IMPLANT INTRAOCULAR LENS W/O ENDOSCOPIC CYCLOPHOTOCOAGULATION (Left) OPHTHALMIC BIOMETRY BY PARTIAL COHERENCE INTERFEROMETRY W/INTRAOCULAR LENS POWER CALCULATION (Left)at the request of Dr. Johan Jimenez for consultation. My final recommendation will be communicated back to the requesting physician by way of shared medical record or letter. Subjective The patient has the following: COVID-19 Immunization Status Current Care Gaps Covid-19 Vaccine () Overdue since 11/23/2024 05/26/2024 Imm Admin: COVID-19 vaccine, age 12+ yr (MODERNA) 04/18/2023 Imm Admin: COVID-19 vaccine, age 12+ yr (MODERNA) 04/04/2022 Imm Admin: COVID-19 vaccine, age 12+ yr, bivalent (MODERNA) Only the first 3 history entries have been loaded, but more history exists. CHIEF COMPLAINT: pre op HPI: Patient is a 79 year old male scheduled for pre anesthesia consultation for procedure on 12/21/2024 at [facility]. Patient c/o blurry vision in the left eye for over 5 years. Has tried conservative methods with little relief. Patient denies other specific radiating, alleviating, or aggravating factors. REVIEW OF SYSTEMS: General: No weight loss, malaise or fevers. Neurological: + ocular stroke Negative for: delirium, dementia, headaches, impaired sensorium, peripheral neuropathy, seizures and TIA. Respiratory: Negative for: asthma, bronchitis, COPD, current cough, bronchodilator used daily for the last 3 months, dyspnea, home oxygen, orthopnea, pneumonia within 6 weeks, tobacco use, URI < 2 weeks and obstructive sleep apnea. Cardiovascular: + bilateral carotid stenosis + PAH Positive for: AICD/PPM, CHF, hyperlipidemia, hypertension and murmur/valvular heart disease Negative for: abdominal aortic aneurysm, angina, anticoagulation therapy, arrhythmia, atrial fibrillation, CAD, chest pain, congenital heart defect, DVT/PE, recent IA, PTCA, PVD, open heart surgery and valve surgery. GI: Negative for: abdominal pain, GERD, GI bleed <30 days, hepatitis, liver disease, nausea, vomiting and ETOH >2 drinks/day. : + s/p left nephrectomy Negative for: on dialysis, dysuria, flank pain, frequent urination, hematuria, renal failure and urinary tract infection. Endocrine: Positive for: diabetes mellitus. Patient's diabetes mellitus is controlled by trulicity. Negative for: hyperthyroidism and hypothyroidism. Hematology: Negative for: anemia, bruises/bleeds easily, factor V Leiden, hemophilia, thrombocytopenia, von Willebrand disease, transfusion of at least 4 units within 72 hours prior to surgery and chronic anti-coagulation/platelet meds. Oncology: + hx kidney cancer and prostate cancer Negative for: CA metastasis, chemo within 30 days, disseminated cancer and radiotherapy within 90 days. Psych: No history of psychiatric symptoms or problems. Musculoskeletal: Positive for: joint pain. Skin: Negative for lesions, rash and itching. Implanted Devices: Has implanted device Implants: Catavolt ICD. PAST MEDICAL HISTORY Diagnosis Date Diabetes mellitus (HCC) Essential hypertension History of prostate cancer Pseudophakia of right eye 09/06/2024 PAST SURGICAL HISTORY Procedure Laterality Date CHOLECYSTECTOMY PAST SURGICAL HISTORY OF Prostate PAST SURGICAL HISTORY OF defibrilator REMOVAL OF KIDNEY REMV CATARACT EXTRACAP,INSERT LENS Right 09/06/2024 FAMILY HISTORY Problem Relation Age of Onset No Ocular Disease No Family History Cancer No Family History Hypertension No Family History Diabetes No Family History Heart No Family History Anesthesia Problems No Family History Social History Tobacco Use Smoking status: Former Current packs/day: 0.00 Types: Cigarettes Quit date: 05/22/1978 Years since quittin.5 Smokeless tobacco: Never Vaping Use Vaping status: Never Used Substance Use Topics Alcohol use: No Drug use: No Prior to Admission medications as of 12/13/24 1015 Medication Sig Last Dose Taking keTORolac (ACULAR) 0.5 % ophthalmic solution Use 1 drop in the left eye four times daily. Start drops 2 (two) days prior to your scheduled surgery date 4 four times a day . Use one drop the morning of surgery. Restart following surgery as per instructions given Yes moxifloxacin (VIGAMOX) 0.5 % ophthalmic solution Use 1 drop in the left eye four times daily. Startdrops 2 (two) days prior to your scheduled surgery date 4 four times a day . Use one drop the morning of surgery. Restart following surgery as per instructions given Yes prednisoLONE acetate (PRED FORTE) 1 % ophthalmic suspension Use 1 drop in the right eye four times daily. Start drops 2 (two) days prior to your scheduled surgery date 4 four times a day . Use one drop the morning of surgery. Restart following surgery as per instructions given. Yes acetaminophen (TYLENOL EXTRA STRENGTH ORAL) Take by mouth. Yes FARXIGA 10 mg tablet Take 1 tablet by mouth every afternoon. Yes glimepiride (AMARYL) 1 mg tablet 4 mg. Yes carvedilol (COREG) 12.5 mg tablet TAKE 1 TABLET BY MOUTH TWICE A DAY WITH MEAL/FOOD Yes furosemide (LASIX) 40 mg tablet Take 1 tablet by mouth once daily. Yes losartan (COZAAR) 25 mg tablet Take 1 tablet by mouth once daily. Yes SIMVASTATIN ORAL Take 10 mg by mouth once daily. Yes dulaglutide (TRULICITY) 0.75 mg / 0.5 ml subcutaneous pen injector Inject subcutaneously. Yes vit C,E-Vz-zkaej-lutein-zeaxan (PRESERVISION AREDS-2) 247-437-30-1 zl-frud-xw-mg cap Take 1 capsuleby mouth twice daily. Yes prednisoLONE acetate (PRED FORTE) 1 % ophthalmic suspension Use 1 Drop in the right eye four times daily. Start drops 2 (two) days prior to your scheduled surgery date 4 four times a day . Use one drop the morning of surgery. Restart following surgery as per instructions given Patient not taking: Reported on 12/13/2024 No medication comments found. ALLERGIES No Known Allergies Objective PHYSICAL EXAM: General: alert and oriented and healthy appearance. Pertinent negatives noted - not distressed. Skin: normal color, no rash or lesions. HEENT: EOM intact, pupils equal round and pupils reactive to light. Pertinent negatives noted - no carotid bruit. Cardiovascular: regular rate and rhythm, normal S1 and S2, no rub, murmurs, or gallop. Respiratory: normal breath sounds, no wheezes or crackles. No chest wall deformity or tenderness. Abdomen: bowel sounds present and soft. Pertinent negatives noted - not tender. Extremities: Positive for joint tenderness. Pertinent negatives noted - no cellulitis, no clubbing,no deformity, no edema, no joint swelling, no abnormal pulses, no ulcer, no vascular insufficiency and no varicose veins. Neurological: normal cognition and motor skills. Gait normal. No weakness or sensory deficit. PAIN ASSESSMENT: VITALS: BP 128/84 Pulse 85 Temp (Src) 96.9 (Temporal) Resp 16 Ht 5' 10 (1.78m) Wt 219 lb (99.3kg) SpO2 98% BMI 31.42 kg/(m^2). Diagnostic tests reviewed for today's visit: Lab Value Units Date High Low HB No results within date range. HCT No results within date range. WBC No results within date range. PLT No results within date range. NA No results within date range. K No results within date range. GLUC No results within date range. BUN No results within date range. CREAT No results within date range. PTSEC No results within date range. INR No results within date range. APTT No results within date range. ALT No results within date range. AST No results within date range. TBILI No results within date range. TSH No results within date range. Lab Value Units Date High Low HCGQT No results within date range. UHCG No results within date range. HCG, BODY* No results within date range. Lab Value Units Date High Low ABORHD No results within date range. ABSCREEN No results within date range. No results found for: HBA1C No results found for this or any previous visit (from the past 8760 hours). No results found for this or any previous visit (from the past 58050 hours). Instructions Given to Patient: Instructions located in the after visit summary. Patient given verbal and written preop instructions and voices comprehension and compliance. SIGNATURE: Jose Correia APRN.CNP PATIENT NAME: Sherrell Genao DATE: December 13, 2024 TIME: 10:07 AM PAGER/CONTACT #: [id number] History and physical note* Jose Correia APRN.CNP - 12/13/2024 10:07 AM EDT Images from the original note were not included. 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 BMI 31.0-31.9,adult Assessment: Body mass index is 31.42 kg/m . Hypertension Assessment: Stable and compliant with medications. Follows with PCP. Last 3 Encounter BP Readings: Date: BP: 12/13/2024 128/84 09/06/2024 145/82 08/25/2024 108/70 Implantable cardioverter-defibrillator (ICD) in situ Assessment: Follows Cardiology - Dr. Hilliard Denies any heart palpitations, edema, chest pain, shortness of breath, syncope, activity intolerance, or dizziness. Chronic combined systolic and diastolic heart failure (HCC) Assessment: Compliant on medications. Appears euvolemic, denies new or worsening cardiac symptoms. Follows Cardiology Type 2 diabetes mellitus without retinopathy (HCC) Assessment: Reports compliance to medication. Reports BS checks ranging in the 120s fasting. Encouraged lifestyle modifications. Last hemoglobin A1C around 7% per patient. Pulmonary arterial hypertension (HCC) Assessment: per [facility], records requested. Nonrheumatic mitral valve regurgitation Assessment: per [facility], records requested Bilateral carotid artery stenosis Assessment: chronic, stable, no surgical interventions, following cardiology, records requested. ANESTHESIA FINDINGS: Intubation History: No history of difficult intubation. No abnormal airway history Significant Anesthesia Considerations: none Airway History: No history of difficult airway No abnormal airway history Perez Activity Status Index: METS: Walk indoors, such as around the house (1.75 METs) Do light work around the house, such as dusting or washing dishes (2.70 METs) Take care of self; that is eating, dressing, bathing, using the toilet (2.75 METs) Walk a block or two on level ground (2.75 METs) Do moderate work around the house, such as vacuuming, sweeping floors, or carrying in groceries (3.50 METs) Climb a flight of stairs or walk up a hill (5.50 METs) DASI Score: 18.95 Patient denies any chest pain or undue shortness of breath with the above physical activity. Clinical Frailty Scale: 3. Well, with treated comorbid disease STOP-Bang Score: Has or is being treated for high blood pressure Patient over 50 years old Male patient Denies snoring loudly Denies feeling tired, fatigued, or sleepy during the daytime Has not been observed to stop breathing or choking/gasping during sleep BMI less than or equal to 35 kg/m^2 Does not have a large neck STOP-Bang Score: 3 I - PHYSICAL EVALUATION AIRWAY Patient intubated: No. Tracheostomy tube not present Mallampati: II. TM distance: >3 FB. Neck ROM: full ROM without neurological symptoms. Mouth opening: adequate. Short neck: no. Thick neck: no DENTAL Dental findings: teeth intact. Additional comments: + scattered crowns. II - ANESTHESIA PLAN Anesthetic plan additional comments: *PACC/TCI - anesthesia choice. Beta Ken Monitoring Plan Post Procedure Analgesic Plan Prepared for Surgery: optimally prepared for surgery. CONSULTS: Patient does not require consults for optimization at this time Planned Anesthetic: anesthesia choice The Following Tests/Procedures Have Been Initiated: No orders of the defined types were placed in this encounter. REASON FOR VISIT: Sherrell Genao is a 79 year old male who is scheduled for Procedure(s): PHACOEMULSIFICATION CATARACT IMPLANT INTRAOCULAR LENS W/O ENDOSCOPIC CYCLOPHOTOCOAGULATION (Left) OPHTHALMIC BIOMETRY BY PARTIAL COHERENCE INTERFEROMETRY W/INTRAOCULAR LENS POWER CALCULATION (Left)at the request of Dr. Johan Jimenez for consultation. My final recommendation will be communicated back to the requesting physician by way of shared medical record or letter. Subjective The patient has the following: COVID-19 Immunization Status Current Care Gaps Covid-19 Vaccine () Overdue since 11/23/2024 05/26/2024 Imm Admin: COVID-19 vaccine, age 12+ yr (MODERNA) 04/18/2023 Imm Admin: COVID-19 vaccine, age 12+ yr (MODERNA) 04/04/2022 Imm Admin: COVID-19 vaccine, age 12+ yr, bivalent (MODERNA) Only the first 3 history entries have been loaded, but more history exists. CHIEF COMPLAINT: pre op HPI: Patient is a 79 year old male scheduled for pre anesthesia consultation for procedure on 12/21/2024 at [facility]. Patient c/o blurry vision in the left eye for over 5 years. Has tried conservative methods with little relief. Patient denies other specific radiating, alleviating, or aggravating factors. REVIEW OF SYSTEMS: General: No weight loss, malaise or fevers. Neurological: + ocular stroke Negative for: delirium, dementia, headaches, impaired sensorium, peripheral neuropathy, seizures and TIA. Respiratory: Negative for: asthma, bronchitis, COPD, current cough, bronchodilator used daily for the last 3 months, dyspnea, home oxygen, orthopnea, pneumonia within 6 weeks, tobacco use, URI < 2 weeks and obstructive sleep apnea. Cardiovascular: + bilateral carotid stenosis + PAH Positive for: AICD/PPM, CHF, hyperlipidemia, hypertension and murmur/valvular heart disease Negative for: abdominal aortic aneurysm, angina, anticoagulation therapy, arrhythmia, atrial fibrillation, CAD, chest pain, congenital heart defect, DVT/PE, recent IA, PTCA, PVD, open heart surgery and valve surgery. GI: Negative for: abdominal pain, GERD, GI bleed <30 days, hepatitis, liver disease, nausea, vomiting and ETOH >2 drinks/day. : + s/p left nephrectomy Negative for: on dialysis, dysuria, flank pain, frequent urination, hematuria, renal failure and urinary tract infection. Endocrine: Positive for: diabetes mellitus. Patient's diabetes mellitus is controlled by trulicity. Negative for: hyperthyroidism and hypothyroidism. Hematology: Negative for: anemia, bruises/bleeds easily, factor V Leiden, hemophilia, thrombocytopenia, von Willebrand disease, transfusion of at least 4 units within 72 hours prior to surgery and chronic anti-coagulation/platelet meds. Oncology: + hx kidney cancer and prostate cancer Negative for: CA metastasis, chemo within 30 days, disseminated cancer and radiotherapy within 90 days. Psych: No history of psychiatric symptoms or problems. Musculoskeletal: Positive for: joint pain. Skin: Negative for lesions, rash and itching. Implanted Devices: Has implanted device Implants: Catavolt ICD. PAST MEDICAL HISTORY Diagnosis Date Diabetes mellitus (HCC) Essential hypertension History of prostate cancer Pseudophakia of right eye 09/06/2024 PAST SURGICAL HISTORY Procedure Laterality Date CHOLECYSTECTOMY PAST SURGICAL HISTORY OF Prostate PAST SURGICAL HISTORY OF defibrilator REMOVAL OF KIDNEY REMV CATARACT EXTRACAP,INSERT LENS Right 09/06/2024 FAMILY HISTORY Problem Relation Age of Onset No Ocular Disease No Family History Cancer No Family History Hypertension No Family History Diabetes No Family History Heart No Family History Anesthesia Problems No Family History Social History Tobacco Use Smoking status: Former Current packs/day: 0.00 Types: Cigarettes Quit date: 05/22/1978 Years since quittin.5 Smokeless tobacco: Never Vaping Use Vaping status: Never Used Substance Use Topics Alcohol use: No Drug use: No Prior to Admission medications as of 12/13/24 1015 Medication Sig Last Dose Taking keTORolac (ACULAR) 0.5 % ophthalmic solution Use 1 drop in the left eye four times daily. Start drops 2 (two) days prior to your scheduled surgery date 4 four times a day . Use one drop the morning of surgery. Restart following surgery as per instructions given Yes moxifloxacin (VIGAMOX) 0.5 % ophthalmic solution Use 1 drop in the left eye four times daily. Startdrops 2 (two) days prior to your scheduled surgery date 4 four times a day . Use one drop the morning of surgery. Restart following surgery as per instructions given Yes prednisoLONE acetate (PRED FORTE) 1 % ophthalmic suspension Use 1 drop in the right eye four times daily. Start drops 2 (two) days prior to your scheduled surgery date 4 four times a day . Use one drop the morning of surgery. Restart following surgery as per instructions given. Yes acetaminophen (TYLENOL EXTRA STRENGTH ORAL) Take by mouth. Yes FARXIGA 10 mg tablet Take 1 tablet by mouth every afternoon. Yes glimepiride (AMARYL) 1 mg tablet 4 mg. Yes carvedilol (COREG) 12.5 mg tablet TAKE 1 TABLET BY MOUTH TWICE A DAY WITH MEAL/FOOD Yes furosemide (LASIX) 40 mg tablet Take 1 tablet by mouth once daily. Yes losartan (COZAAR) 25 mg tablet Take 1 tablet by mouth once daily. Yes SIMVASTATIN ORAL Take 10 mg by mouth once daily. Yes dulaglutide (TRULICITY) 0.75 mg / 0.5 ml subcutaneous pen injector Inject subcutaneously. Yes vit C,Y-Fc-cfvtn-lutein-zeaxan (PRESERVISION AREDS-2) [id number] jx-luji-gf-mg cap Take 1 capsuleby mouth twice daily. Yes prednisoLONE acetate (PRED FORTE) 1 % ophthalmic suspension Use 1 Drop in the right eye four times daily. Start drops 2 (two) days prior to your scheduled surgery date 4 four times a day . Use one drop the morning of surgery. Restart following surgery as per instructions given Patient not taking: Reported on 12/13/2024 No medication comments found. ALLERGIES No Known Allergies Objective PHYSICAL EXAM: General: alert and oriented and healthy appearance. Pertinent negatives noted - not distressed. Skin: normal color, no rash or lesions. HEENT: EOM intact, pupils equal round and pupils reactive to light. Pertinent negatives noted - no carotid bruit. Cardiovascular: regular rate and rhythm, normal S1 and S2, no rub, murmurs, or gallop. Respiratory: normal breath sounds, no wheezes or crackles. No chest wall deformity or tenderness. Abdomen: bowel sounds present and soft. Pertinent negatives noted - not tender. Extremities: Positive for joint tenderness. Pertinent negatives noted - no cellulitis, no clubbing,no deformity, no edema, no joint swelling, no abnormal pulses, no ulcer, no vascular insufficiency and no varicose veins. Neurological: normal cognition and motor skills. Gait normal. No weakness or sensory deficit. PAIN ASSESSMENT: VITALS: BP 128/84 Pulse 85 Temp (Src) 96.9 (Temporal) Resp 16 Ht 5' 10 (1.78m) Wt 219 lb (99.3kg) SpO2 98% BMI 31.42 kg/(m^2). Diagnostic tests reviewed for today's visit: Lab Value Units Date High Low HB No results within date range. HCT No results within date range. WBC No results within date range. PLT No results within date range. NA No results within date range. K No results within date range. GLUC No results within date range. BUN No results within date range. CREAT No results within date range. PTSEC No results within date range. INR No results within date range. APTT No results within date range. ALT No results within date range. AST No results within date range. TBILI No results within date range. TSH No results within date range. Lab Value Units Date High Low HCGQT No results within date range. UHCG No results within date range. HCG, BODY* No results within date range. Lab Value Units Date High Low ABORHD No results within date range. ABSCREEN No results within date range. No results found for: HBA1C No results found for this or any previous visit (from the past 8760 hours). No results found for this or any previous visit (from the past 74991 hours). Instructions Given to Patient: Instructions located in the after visit summary. Patient given verbal and written preop instructions and voices comprehension and compliance. SIGNATURE: Jose Correia APRN.CNP PATIENT NAME: Sherrell Genao DATE: December 13, 2024 TIME: 10:07 AM PAGER/CONTACT #: [facility] Instructions* Patient Instructions* Jose Correia APRN.CNP - 12/13/2024 10:07 AM EDT Images from the original note were not included. [facility] PATIENT PREOPERATIVE INSTRUCTIONS Johan Jimenez MD has scheduled you for your procedure at this surgery center: [address] [facility], [place], [facility] [address], [place] [address]. Phone number is [phone]. Please read below carefully for your personalized instructions. Arrival Time for Surgery: - The Surgery Center or hospital where you are having surgery will call the afternoon before surgery (or Friday for Friday surgery) with a scheduled arrival time. - If you have not heard by 4 pm, please contact the surgery center above. Dietary Restrictions: - No solid food after midnight. - You may have 12 ounces of clear liquids (water, clear juices such as apple juice or gatorade, carbonated beverages, clear tea, black coffee, jello) until 2 hours before scheduled arrival at facility. - Do not drink any alcohol after midnight the night before your surgery. - no milk/creamer or other additives like honey - no pulp juices Medications: Pre-Surgery Med Instructions Medication Instructions keTORolac (ACULAR) 0.5 % ophthalmic solution Use as directed per your surgeon. moxifloxacin (VIGAMOX) 0.5 % ophthalmic solution Use as directed per your surgeon. prednisoLONE acetate (PRED FORTE) 1 % ophthalmic suspension Use as directed per your surgeon. acetaminophen (TYLENOL EXTRA STRENGTH ORAL) If you normally take this medication in the morning, take the morning of surgery. FARXIGA 10 mg tablet Hold 3 days before surgery. Last dose . glimepiride (AMARYL) 1 mg tablet Do not take the day of surgery carvedilol (COREG) 12.5 mg tablet If you normally take this medication in the morning, take the morning of surgery. furosemide (LASIX) 40 mg tablet Do not take the day of surgery losartan (COZAAR) 25 mg tablet If you normally take this medication in the morning, take the morning of surgery. SIMVASTATIN ORAL If you normally take this medication in the morning, take the morning of surgery. dulaglutide (TRULICITY) 0.75 mg / 0.5 ml subcutaneous pen injector Hold 7 days before surgery. Lastdose 12/12/24. vit C,C-Aj-coxtp-lutein-zeaxan (PRESERVISION AREDS-2) [phone] sa-qhhc-gd-mg cap Do not take the day of surgery If you are currently using a zias-thq-dxbe injectable or oral medication for diabetes or weight loss such as Dulaglutide (Trulicity), Exenatide (Byetta, Bydureon), Liraglutide (Victoza, Saxenda), Semaglutide (Ozempic, Wegovy, Rybelsus), or Tirzepatide (Mounjaro), the medicine should be stopped at least 7 days before surgery. These medicines can cause food to remain in your stomach for a very longtime and increase the risks from surgery and anesthesia. Not stopping the medication for a long enough time may result in your surgery being rescheduled. If you take any medications for erectile dysfunction-Cialis (Tadalafil), Levitra, Staxyn (Vardenafil) Viagra (Sildenenafil please do not take these for 48 hours before surgery. If you start any new medications after today's visit, please contact the surgeon's office. Blood Thinning Medications: - Stop NSAIDS (Ibuprofen, Advil, Aleve, Motrin, Celebrex, Mobic, etc.) 7 days before surgery, as directed by your surgeon. - Stop Aspirin 7 days before surgery, as directed by your surgeon. - Stop herbal supplements 7 days before surgery. - You may take Tylenol (Acetaminophen) or any of your pain medications that do not contain aspirin or NSAIDS as needed. Important Reminders: - If you use CPAP/BIPAP, bring the machine with you to the surgery center. - If you are prescribed inhalers for breathing, continue using them. - Please be sure to brush your teeth and you can use mouth wash or rinse your mouth if dry. - Candy, mints, and tobacco products are NOT permitted the morning of surgery. - Hearing aids, dentures and glasses may be worn the morning of surgery. - If you have dentures or partials, please have a case to place them in or leave at home day of surgery. - NO jewelry, body piercings, makeup, hairpins or contacts are to be worn the day of surgery. If you develop symptoms such as a fever, cold, or flu, or have other changes to your health within TWO DAYS of scheduled surgery or the morning of surgery, please contact the surgery center above. Personal Belongings: -Please have photo ID and insurance cards. -If you do not have a copy of advance directives on file with us, please bring a copy with you on the day of surgery. - Leave ALL valuables and money at home or with family members. For Outpatient Procedures: - YOU MUST HAVE A RESPONSIBLE ROOF FOREMAN TAKE YOU HOME. A BSS SOLUTION ARCHITECT OR BRIEF WRITER CANNOT BE MADE A RESPONSIBLE ROOF FOREMAN. - We recommend that a responsible person stays with you overnight to take care of you. - You cannot stay in a hotel alone after outpatient surgery. You will not be permitted to have yoursurgery, if you do not have someone to take care of you. Please be aware that emergency situations arise, which may delay or change your surgical time. If this happens, we will notify you as soon as possible and regret any inconvenience. If you already have an Advance Directive, please fax a copy to [phone] or email to for it to be added to your chart. If you do not have an Advance Directive, you can find the appropriate form and more information at [email or web address]. We recommend that youcomplete the Advance Directive form found on the website and bring it with you the day of your surgery. It can be witnessed and scanned into your chart that day. Jose Correia APRN.LEE documented in this encounterWadsworth-[facility]man [facility]04-02-[facility] Evaluation note* Diagnosis Onset Date Resolution Status Admit Date GERD (gastroesophageal reflu x disease) acute October 13, 2024 9:23am Chronic fatigue chronic October 9:23am Chronic kidney disease (CKD) chronic October 13, 2024 9:23am Essential (primary) hypertension [facility] October 13, 2024 9:23am Type 2 diabetes mellitus chronic October 13, 2024 9:23am [facility] Work Phone: [phone] Evaluation note* Diagnosis Onset Date Resolution Status Admit Date GERD (gastroesophageal reflu x disease) acute October 13, 2024 9:23am Chronic fatigue chronic October 9:23am Chronic kidney disease (CKD) chronic October 13, 2024 9:23am Essential (primary) hypertension chronic October 13, 2024 9:23am Type 2 diabetes mellitus chronic October 13, 2024 9:23am Cataract acute January 26 10:25am Diarrhea acute January 26 10:25am Diastasis recti acute January 10:25am Essential (primary) hypertension chronic January 26, 2025 10:25am Type 2 diabetes mellitus chronic January 26, 2025 10:25am [facility] Work Phone: 1(101) 423-347003-27-2025 NoteHNO ID: [id number] Author: FRANKLIN TONY OD Service: ? Author Type: PEDIATRIC PHYSICIAN Type: Progress Notes Filed: 10/07/2024 13:53 Note Text: 1. Pseudophakia (Primary) Patient doing well PO Follow-up for surgery as scheduled in December left eye 2. Squamous blepharitis of upper and lower eyelids of both eyes Recommended warm compresses and daily lid scrubs and artificial 3x daily and Zaditor magui Tony OD October 07, 2024 1:[facility] of Present illness Narrative* Franklin Tony OD - 10/07/2024 1:50 PM EDT 1. Pseudophakia (Primary) Patient doing well PO Follow-up for surgery as scheduled in December left eye 2. Squamous blepharitis of upper and lower eyelids of both eyes Recommended warm compresses and daily lid scrubs and artificial 3x daily and Zaditor magui Tony OD October 07, 2024 1:50 PM documented in this encounterWadsworth-[facility]03-27-2025 Instructions* Patient Instructions* Franklin Tony OD - 10/07/2024 11:35 AM EDT Use warm compresses or shower rinses daily Use Ocusoft/Systane lid wipes or scrub to clean eyelids/lashes daily If itching continues: Use artificial tears three times a day (Refresh or Systane) And/or Zaditor twice a day as needed for itching documented in this encounterWadsworth-Rittman [facility]03-12-2025 NoteDate of Procedure 09/22/2024. OCT Macula Interpretation Right Eye Normal foveal contour. Findings include Epiretinal membrane, Atrophy. Left Eye Normal foveal contour. Findings include Epiretinal membrane, Atrophy. Interval Change Right Eye Stable. Left Eye Stable.[id number] NoteHNO ID: [id number] Author: JOHAN JIMENEZ MD Service: ? 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 Photophobia of both eyes 3. Visual field loss -seen by by Antwan in Jul 2018. MRI with bilateral optic nerve atrophy -stable -main complaint is sensitivity to light - OCT OPTIC NERVE CIRRUS OU (BOTH EYES) with diffuse nerve fiber layer thinning both eyes - johansen visual field (HVF) with diffuse constriction left eye > right eye 4. Type 2 diabetes mellitus without retinopathy (HCC) -no diabetic retinopathy both eyes 5. Combined forms of age-related cataract of both eyes -s/p cataract extraction with intraocular lens implantation right eye 09/06/2024 Cataract Presurgical Documentation Cataract: Left eye (OS) Current Visual Acuity Right Eye Distance SC 20/100 Left Eye Distance CC 20/70 Glare Testing: Visual Function: Sherrell Genao states that the decline in vision from the cataract impedes his abilities as listed in the HPI, as well as other activities of daily living. Sherrell Genao has confirmed that he is no longer able to function adequately on a day-to-day basis because of his current visual condition. Further, it is my medical opinion that the cataract is the primary cause, or at least a significantly contributory cause of his visual dysfunction. With uncomplicated cataract surgery and lens implantation, it is my expectation that his visual function and quality of life will improve, significantly. The risks, benefits, alternatives, personnel and complications of cataract surgery with lens implantation were discussed with Sherrell Genao in detail. he appeared to understand and asked that I proceed with plans for surgery. 6. Dry eye syndrome both eyes -significant punctate epithelial erosions both eyes -contributing to decreased vision 7. Epiretinal membrane both eyes -preserved foveal contour both eyes Plan: -Continue blood sugar and blood pressure control -feels that vision much improved right eye post cataract surgery!! 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 I have seen and examined Sherrell Genao. I have discussed the case and the management of this patient's care with the Resident/Fellow, if applicable. I also have reviewed and agree with the assessment and plan as stated above and agree with all of its relevant components. Johan Jimenez [facility]03-12-2025 History of Present illness Narrative* Johan Jimenez MD - 09/22/2024 12:37 PM EDT Assessment and Plan 1. 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 Photophobia of both eyes 3. Visual field loss -seen by by Antwan in Jul 2018. MRI with bilateral optic nerve atrophy -stable -main complaint is sensitivity to light - OCT OPTIC NERVE CIRRUS OU (BOTH EYES) with diffuse nerve fiber layer thinning both eyes - johansen visual field (HVF) with diffuse constriction left eye > right eye 4. Type 2 diabetes mellitus without retinopathy (HCC) -no diabetic retinopathy both eyes 5. Combined forms of age-related cataract of both eyes -s/p cataract extraction with intraocular lens implantation right eye 09/06/2024 Cataract Presurgical Documentation Cataract: Left eye (OS) Current Visual Acuity Right Eye Distance SC 20/100 Left Eye Distance CC 20/70 Glare Testing: Visual Function: Sherrell Genao states that the decline in vision from the cataract impedes his abilities as listed in the HPI, as well as other activities of daily living. Sherrell Genao has confirmed that he is no longer able to function adequately on a day-to-day basis because of his current visual condition. Further, it is my medical opinion that the cataract is the primary cause, or at least a significantly contributory cause of his visual dysfunction. With uncomplicated cataract surgery and lens implantation, it is my expectation that his visual function and quality of life will improve, significantly. The risks, benefits, alternatives, personnel and complications of cataract surgery with lens implantation were discussed with Sherrell Genao in detail. he appeared to understand and asked that I proceedwith plans for surgery. 6. Dry eye syndrome both eyes -significant punctate epithelial erosions both eyes -contributing to decreased vision 7. Epiretinal membrane both eyes -preserved foveal contour both eyes Plan: -Continue blood sugar and blood pressure control -feels that vision much improved right eye post cataract surgery!! 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 I have seen and examined Sherrell Genao. I have discussed the case and the management of this patient's care with the Resident/Fellow, if applicable. I also have reviewed and agree with the assessment and plan as stated above and agree withall of its relevant components. Johan Jimenez MD documented in this encounterWadsworth-Rittman [facility]03-03-2025 Instructions* Patient Instructions* Johan Jimenez MD - 09/13/2024 12:46 PM EST -prednisolone (white or pink cap) three times a day for 1 week, then twice a day for 1 week, then once a day for 1 week, then stop -voltaren/ketorolac (key cap) three times a day for 1 week, then stop -moxifloxacin (christine cap) three times a day for 1 week, then stop documented in this encounterWadsworth-[facility]ittman [facility]03-03-2025 NoteHNO ID: [id number] Author: JOHAN JIMENEZ MD Service: ? Author Type: Physician Type: Progress Notes Filed: 09/13/2024 12:56 Note Text: Assessment and Plan 1. 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 Photophobia of both eyes 3. Visual field loss -seen by by Antwan in Jul 2018. MRI with bilateral optic nerve atrophy -stable -main complaint is sensitivity to light - OCT OPTIC NERVE CIRRUS OU (BOTH EYES) with diffuse nerve fiber layer thinning both eyes - johansen visual field (HVF) with diffuse constriction left eye > right eye 4. Type 2 diabetes mellitus without retinopathy (HCC) -no diabetic retinopathy both eyes 5. Combined forms of age-related cataract of both eyes -s/p cataract extraction with intraocular lens implantation right eye 09/06/2024 Cataract Presurgical Documentation Cataract: Left eye (OS) Current Visual Acuity Right Eye Distance SC 20/80 Left Eye Distance SC 20/300 Glare Testing: Visual Function: Sherrell Genao states that the decline in vision from the cataract impedes his abilities as listed in the HPI, as well as other activities of daily living. Sherrell Genao has confirmed that he is no longer able to function adequately on a day-to-day basis because of his current visual condition. Further, it is my medical opinion that the cataract is the primary cause, or at least a significantly contributory cause of his visual dysfunction. With uncomplicated cataract surgery and lens implantation, it is my expectation that his visual function and quality of life will improve, significantly. The risks, benefits, alternatives, personnel and complications of cataract surgery with lens implantation were discussed with Sherrell Dunnd in detail. he appeared to understand and asked that I proceed with plans for surgery. 6. Dry eye syndrome both eyes -significant punctate epithelial erosions both eyes -contributing to decreased vision Plan: -Continue blood sugar and blood pressure control -feels that vision much improved right eye post cataract surgery!! 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 I have seen and examined Sherrell Genao. I have discussed the case and the management of this patient's care with the Resident/Fellow, if applicable. I also have reviewed and agree with the assessment and plan as stated above and agree with all of its relevant components. Johan Jimenez, [facility]03-03-2025 History of Present illness Narrative* Johan Jimenez MD - 09/13/2024 12:45 PM EST Assessment and Plan 1. 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 Photophobia of both eyes 3. Visual field loss -seen by by Antwan in Jul 2018. MRI with bilateral optic nerve atrophy -stable -main complaint is sensitivity to light - OCT OPTIC NERVE CIRRUS OU (BOTH EYES) with diffuse nerve fiber layer thinning both eyes - johansen visual field (HVF) with diffuse constriction left eye > right eye 4. Type 2 diabetes mellitus without retinopathy (HCC) -no diabetic retinopathy both eyes 5. Combined forms of age-related cataract of both eyes -s/p cataract extraction with intraocular lens implantation right eye 09/06/2024 Cataract Presurgical Documentation Cataract: Left eye (OS) Current Visual Acuity Right Eye Distance SC 20/80 Left Eye Distance SC 20/300 Glare Testing: Visual Function: Sherrell Genao states that the decline in vision from the cataract impedes his abilities as listed in the HPI, as well as other activities of daily living. Sherrell Genao has confirmed that he is no longer able to function adequately on a day-to-day basis because of his current visual condition. Further, it is my medical opinion that the cataract is the primary cause, or at least a significantly contributory cause of his visual dysfunction. With uncomplicated cataract surgery and lens implantation, it is my expectation that his visual function and quality of life will improve, significantly. The risks, benefits, alternatives, personnel and complications of cataract surgery with lens implantation were discussed with Sherrell Genao in detail. he appeared to understand and asked that I proceedwith plans for surgery. 6. Dry eye syndrome both eyes -significant punctate epithelial erosions both eyes -contributing to decreased vision Plan: -Continue blood sugar and blood pressure control -feels that vision much improved right eye post cataract surgery!! 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 I have seen and examined Sherrell Genao. I have discussed the case and the management of this patient's care with the Resident/Fellow, if applicable. I also have reviewed and agree with the assessment and plan as stated above and agree withall of its relevant components. Johan Jimenez MD documented in this encounterWadsworth-Rittman [facility]02-25-2025 NoteHNO ID: [id number] Author: JOHAN JIMENEZ MD Service: ? Author Type: Physician Type: Progress Notes Filed: 09/07/2024 15:24 Note Text: Assessment and Plan 1. 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 Photophobia of both eyes 3. Visual field loss -seen by by Antwan in Jul 2018. MRI with bilateral optic nerve atrophy -stable -main complaint is sensitivity to light - OCT OPTIC NERVE CIRRUS OU (BOTH EYES) with diffuse nerve fiber layer thinning both eyes - johansen visual field (HVF) with diffuse constriction left eye > right eye 4. Type 2 diabetes mellitus without retinopathy (HCC) -no diabetic retinopathy both eyes 5. 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 Dry eye syndrome both eyes -significant punctate epithelial erosions both eyes -contributing to decreased vision Plan: -Continue blood sugar and blood pressure control -feels that vision much improved right eye post cataract surgery!! -drops per protocol -precautions -artificial tears three times a day - helping greatly -zaditor twice a day as needed for itching -follow-up 1 week / sooner as needed I have confirmed and edited as necessary the relevant ophthalmic history, ROS, and the neuro exam findings as obtained by others. I have seen and examined Sherrell Genao. I have discussed the case and the management of this patient's care with the Resident/Fellow, if applicable. I also have reviewed and agree with the assessment and plan as stated above and agree with all of its relevant components. Johan Jimenez, [facility]02-25-2025 History of Present illness Narrative* Johan Jimenez MD - 09/07/2024 3:16 PM EST Assessment and Plan 1. 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 Photophobia of both eyes 3. Visual field loss -seen by by Antwan in Jul 2018. MRI with bilateral optic nerve atrophy -stable -main complaint is sensitivity to light - OCT OPTIC NERVE CIRRUS OU (BOTH EYES) with diffuse nerve fiber layer thinning both eyes - johansen visual field (HVF) with diffuse constriction left eye > right eye 4. Type 2 diabetes mellitus without retinopathy (HCC) -no diabetic retinopathy both eyes 5. 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 Dry eye syndrome both eyes -significant punctate epithelial erosions both eyes -contributing to decreased vision Plan: -Continue blood sugar and blood pressure control -feels that vision much improved right eye post cataract surgery!! -drops per protocol -precautions -artificial tears three times a day - helping greatly -zaditor twice a day as needed for itching -follow-up 1 week / sooner as needed I have confirmed and edited as necessary the relevant ophthalmic history, ROS, and the neuro exam findings as obtained by others. I have seen and examined Sherrell Genao. I have discussed the case and the management of this patient's care with the Resident/Fellow, if applicable. I also have reviewed and agree with the assessment and plan as stated above and agree withall of its relevant components. Johan Jimenez MD documented in this encounterWadsworth-Rittman [facility]02-25-2025 Instructions* Patient Instructions* Johan Jimenez MD - 09/07/2024 3:16 PM EST Images from the original note were not included. documented in this encounterWadsworth-Rittman [facility]02-20-2025 Telephone encounter Note * Telephone Encounter - Geetha Farris RN - 09/02/2024 2:35 PM EST Requested prescription pended to Dr. Jimenez in a refill encounter for approval. Geetha Farris RN September 02, 2024 2:35 PM [facility]02-20-2025 Miscellaneous Notes* Telephone Encounter - Geetha Farris RN - 09/02/2024 2:35 PM EST Requested prescription pended to Dr. Jimenez in a refill encounter for approval. Geetha Farris RN September 02, 2024 2:35 PM * Telephone Encounter - Shane Harden - 09/02/2024 1:46 PM EST Patient needs surgical drops sent to pharmacy for 09/06/24 sx: Moxifloxacin Ketorolac Prednisolone To: E- [id number] [place] [address] - [address] [facility] [address] - [phone] Pharmacy canceled order on 08/25/24 Called to inform the patient to arrive at [address] [place] [address] at 7:20AM for 09/06/24 surgery with Johan Jimenez MD. Explained that patient is not to arrive any earlier. Also reminded patient to refrain from eating or drinking for 8 hours prior to arrival for surgery, and to start eye drops in the right eye on 09/04. Informed that [employer] does not contact them with the arrival time for surgery. If they receive a message from [facility] to confirm an appointment, they are to make sure of the datefor the appointment. documented in this encounterW[facility] Telephone encounter Note * Telephone Encounter - Geetha Farris RN - 09/02/2024 2:31 PM EST All pre-operative drops for the right eye pended to Dr. Jimenez . Original orders were cancelled by Pharmacy per patient. Geetha Farris RN September 02, 2024 2:34 PM [facility]02-20-[facility] Miscellaneous Notes* Telephone Encounter - Geetha Farris RN - 09/02/2024 2:31 PM EST All pre-operative drops for the right eye pended to Dr. Jimenez . Original orders were cancelled by Pharmacy per patient. Geetha Farris RN September 02, 2024 2:34 PM documented in this encounterWadsworth-[facility] Telephone encounter Note * Telephone Encounter - Shane Harden - 09/02/2024 1:46 PM EST Patient needs surgical drops sent to pharmacy for 09/06/24 sx: Moxifloxacin Ketorolac Prednisolone To: E- [id number] [place] [address] - [address] [phone] [id number] Pharmacy canceled order on 08/25/24 Called to inform the patient to arrive at [address] [place] [address] at 7:20AM for 09/06/24 surgery with Johan Jimenez MD. Explained that patient is not to arrive any earlier. Also reminded patient to refrain from eating or drinking for 8 hours prior to arrival for surgery, and to start eye drops in the right eye on 09/04. Informed that [employer] does not contact them with the arrival time for surgery. If they receive a message from [employer] to confirm an appointment, they are to make sure of the datefor the appointment. [facility]02-12-[facility] Instructions* Patient Instructions* Jackelin Hassan APRN.FILTERING MACHINE TENDER HELPER - 08/25/2024 8:47 AM EST Images from the original note were not included. [facility] PATIENT PREOPERATIVE INSTRUCTIONS Johan Jimenez MD has scheduled you for your procedure at this surgery center: [facility]: [phone] -- [address] [address]. Please read below carefully for your personalized instructions. Dietary Restrictions: - No solid food after midnight. - You may have 12 ounces of clear liquids (water, clear juices such as apple juice or gatorade, carbonated beverages, clear tea, black coffee, jello) until 2 hours before scheduled arrival at facility. Medications: Unless instructed differently below, stay on all of your medications until your surgery. If you start any new medications after today's visit, please contact your surgeon. Pre-Surgery Med Instructions Medication Instructions acetaminophen (TYLENOL EXTRA STRENGTH ORAL) IF needed FARXIGA 10 mg tablet Stop 3 days before surgery glimepiride (AMARYL) 1 mg tablet Do not take the day of surgery carvedilol (COREG) 12.5 mg tablet Take the day of surgery with a small sip of water furosemide (LASIX) 40 mg tablet Do not take the day of surgery losartan (COZAAR) 25 mg tablet Take the day of surgery with a small sip of water SIMVASTATIN ORAL Take the day of surgery with a small sip of water dulaglutide (TRULICITY) 0.75 mg / 0.5 ml subcutaneous pen injector Stop 7 days before surgery vit C,F-Ua-sugbq-lutein-zeaxan (PRESERVISION AREDS-2) 200-299-54-1 cx-dxfj-ve-mg cap Stop 7 days before surgery If you take any medications for erectile dysfunction-Cialis (Tadalafil), Levitra, Staxyn (Vardenafil) Viagra (Sildenenafil please do not take these for 48 hours before surgery. If you start any new medications after today's visit, please contact the surgeon's office. If you are currently using a iicp-tjv-rhuz injectable or oral medication for diabetes or weight loss such as Dulaglutide (Trulicity), Exenatide (Byetta, Bydureon), Liraglutide (Victoza, Saxenda), Semaglutide (Ozempic, Wegovy, Rybelsus), or Tirzepatide (Mounjaro), the medicine should be stopped at least 7 days before surgery. These medicines can cause food to remain in your stomach for a very longtime and increase the risks from surgery and anesthesia. Not stopping the medication for a long enough time may result in your surgery being rescheduled. Blood Thinning Medications: - Stop NSAIDS (Ibuprofen, Advil, Aleve, Motrin, Celebrex, Mobic, etc.) 7 days before surgery, as directed by your surgeon. - Stop Aspirin 7 days before surgery, as directed by your surgeon. - Stop ALL herbal and dietary supplements 7 days before surgery. - You may take Tylenol (Acetaminophen) or any of your pain medications that do not contain aspirin or NSAIDS as needed. Important Reminders: - Candy, mints, and tobacco products are NOT permitted the morning of surgery. - Hearing aids, dentures and glasses may be worn the morning of surgery. - NO jewelry, body piercings, makeup, hairpins or contacts are to be worn the day of surgery. If you develop symptoms such as a fever, cold, or flu, or have other changes to your health within TWO DAYS of scheduled surgery or the morning of surgery, please contact the surgery center above. Personal Belongings: -Please have photo ID and insurance cards. -If you do not have a copy of advance directives on file with us, please bring a copy with you on the day of surgery. - Leave ALL valuables and money at home or with family members. - Please bring high-quality footwear, such as sneakers, to the hospital for ambulating post-surgery. For Outpatient Procedures: - YOU MUST HAVE A RESPONSIBLE ROOF FOREMAN TAKE YOU HOME. A BSS SOLUTION ARCHITECT OR BRIEF WRITER CANNOT BE MADE A RESPONSIBLE ROOF FOREMAN. - We recommend that a responsible person stays with you overnight to take care of you. - You cannot stay in a hotel alone after outpatient surgery. You will not be permitted to have yoursurgery, if you do not have someone to take care of you. Arrival Time for Surgery: - The Surgery Center or hospital where you are having surgery will call the afternoon before surgery (or Friday for Friday surgery) with a scheduled arrival time. - If you have not heard by 4 pm, please contact the surgery center above. Please be aware that emergency situations arise, which may delay or change your surgical time. If this happens, we will notify you as soon as possible and regret any inconvenience. If you already have an Advance Directive, please fax a copy to [phone] or email to for it to be added to your chart. If you do not have an Advance Directive, you can find the appropriate form and more information at [email or web address]. We recommend that youcomplete the Advance Directive form found on the website and bring it with you the day of your surgery. It can be witnessed and scanned into your chart that day. Jackelin Hassan APRN.CNP documented in this encounterWadsworth-[facility]02-12-2025 History and physical note * Jackelin Hassan APRN.CNP - 08/25/2024 8:30 AM EST Images from the original note were not included. [facility] HISTORY AND PHYSICAL EXAMINATION SERVICE DATE: 08/25/2024 SERVICE TIME: 9:29 AM PRIMARY CARE PHYSICIAN: Shane Schreiber MD Assessment Patient has the following medical conditions which may affect tammy-operative course: Type 2 diabetes mellitus without retinopathy (HCC) Assessment: controlled with weekly injectable, oral agents, recent labs requested from [facility] BMI 31.0-31.9,adult Assessment: Body mass index is 31.57 kg/m . Chronic combined systolic and diastolic heart failure (HCC) Assessment: controlled on rx, following [facility], Dr. Hilliard, records requested Hypertension Assessment: controlled on rx Last 14 BP Last 14 Encounter BP Readings: Date: BP: 08/25/2024 108/70 Implantable cardioverter-defibrillator (ICD) in situ Assessment: following cardiology, records requested Nonrheumatic mitral valve regurgitation Assessment: per [facility], records requested Pulmonary arterial hypertension (HCC) Assessment: per [facility], records requested Hearing loss Assessment: hearing aides Chronic kidney disease Assessment: recent labs requested Malignant neoplasm of left kidney (HCC) Assessment: s/p left nephrectomy Prostate cancer (HCC) Assessment: following [facility], hx XRT and hormone therapy, records requested Dyslipidemia Assessment: c/w statin Bilateral carotid artery stenosis Assessment: chronic, stable, no surgical interventions, following cardiology, records requested Low platelet count (HCC) Assessment: per [facility], recent labs requested Perez Activity Status Index: METS: Climb a flight of stairs or walk up a hill (5.50 METs) DASI Score: 5.5 Patient denies any chest pain or undue shortness of breath with the above physical activity. Clinical Frailty Scale: 1. Very fit STOP-Bang Score: Male patient Denies snoring loudly Denies feeling tired, fatigued, or sleepy during the daytime Has not been observed to stop breathing or choking/gasping during sleep Denies having high blood pressure BMI less than or equal to 35 kg/m^2 Patient 50 years old or younger Does not have a large neck STOP-Bang Score: 1 [id number] Score: Age: >=75 Sex: male CHF history: Yes Hypertension history: Yes Stroke/TIA/thromboembolism history: No Vascular disease history: Yes Diabetes history: Yes [id number] Score: 6 ARISCAT Score: Age: 51-80 Preoperative SpO2: 91-95% Respiratory infection in the last month: No Preoperative anemia: No Surgical incision: peripheral Duration of surgery: <2 hrs Emergency procedure: No ARISCAT Score: 11 ANESTHESIA FINDINGS: Intubation History: No history of difficult intubation Significant Anesthesia Considerations: none Airway History: No history of difficult airway I - PHYSICAL EVALUATION AIRWAY Patient intubated: No. Tracheostomy tube not present Mallampati: III. TM distance: >3 FB. Neck ROM: full ROM without neurological symptoms. Mouth opening: adequate. Short neck: no. Thick neck: yes Márquez present: no Lip Bite Test: I Microretrognathia/Micronagthia/Recessed Chin: No DENTAL Dental findings: teeth intact. Additional comments: +crowns/back. II - ANESTHESIA PLAN Anesthetic Plan: other Beta Ken Monitoring Plan Post Procedure Analgesic Plan Prepared for Surgery: optimally prepared for surgery. CONSULTS: Patient does not require consults for optimization at this time Planned Anesthetic: other anesthesia choice The Following Tests/Procedures Have Been Initiated: Orders Placed This Encounter acetaminophen (TYLENOL EXTRA STRENGTH ORAL) Sig: Take by mouth. REASON FOR VISIT: Sherrell Genao is a 79 year old male who is scheduled for Procedure(s): PHACOEMULSIFICATION CATARACT IMPLANT INTRAOCULAR LENS W/O ENDOSCOPIC CYCLOPHOTOCOAGULATION (Right) OPHTHALMIC BIOMETRY BY PARTIAL COHERENCE INTERFEROMETRY W/INTRAOCULAR LENS POWER CALCULATION (Right) at the request of Dr. Johan Jimenez for consultation. My final recommendation will be communicatedback to the requesting physician by way of shared medical record or letter. Subjective The patient has the following: COVID-19 Immunization Status Upcoming Covid-19 Vaccine () Next due on 11/23/2024 05/26/2024 Imm Admin: COVID-19 vaccine, age 12+ yr (MODERNA) 04/18/2023 Imm Admin: COVID-19 vaccine, age 12+ yr (MODERNA) 04/04/2022 Imm Admin: COVID-19 vaccine, age 12+ yr, bivalent (MODERNA) Only the first 3 history entries have been loaded, but more history exists. CHIEF COMPLAINT: Pre-op exam HPI: Sherrell Genao is a 79 year old seen for PAC due to scheduled above surgery because of cataracts. 07/21/2024, Dr. Johan Jimenez 5. Combined forms of age-related cataract of both eyes Cataract Presurgical Documentation Cataract: Right eye (OD) Current Visual Acuity Right Eye Distance CC 20/70 Left Eye Distance CC 20/60 Best Corrected Vision Right Eye 20/60 Best Corrected Vision Left Eye 20/60-1 Glare Testing: N/A Visual Function: Sherrell Genao states that the decline in vision from the cataract impedes his abilities as listed in the HPI, as well as other activities of daily living. Sherrell Genao has confirmed that he is no longer able to function adequately on a day-to-day basis because of his current visual condition. Further, it is my medical opinion that the cataract is the primary cause, or at least a significantly contributory cause of his visual dysfunction. With uncomplicated cataract surgery and lens implantation, it is my expectation that his visual function and quality of life will improve, significantly. REVIEW OF SYSTEMS: General: No weight loss, malaise or fevers. Neurological: No history of TIA's, stroke, BROWN STOCK WASHER tumor, impaired sensorium, hemiplegia, paraplegia orquadraplegia. No neurological symptoms or problems. Respiratory: No history of current cough or dyspnea, or pneumonia in the past 6 weeks. No history of respiratory/pulmonary symptoms or problems. Cardiovascular: Positive for: AICD/PPM, arrhythmia, CHF, hyperlipidemia, hypertension, murmur/valvular heart disease and PVD (no revascularization) Negative for: abdominal aortic aneurysm, angina, anticoagulation therapy, atrial fibrillation, CAD,chest pain, congenital heart defect, DVT/PE, recent IA, PTCA, open heart surgery and valve surgery. GI: Positive for: GERD (otc rx as needed) Negative for: abdominal pain, dysphagia, hepatitis, irritable bowel syndrome, inflammatory bowel disease, liver disease, nausea, pancreatitis, vomiting and ETOH >2 drinks/day. : Positive for: frequent urination (2/2 XRT) and renal failure. Patient's renal failure is chronic. Negative for: urinary incontinence, nephrolithiasis and urinary tract infection. Endocrine: Positive for: diabetes mellitus. Patient's diabetes mellitus is controlled by oral agents and weekly injectable. Negative for: hypothyroidism. Hematology: Positive for: thrombocytopenia. Negative for: anemia, bruises/bleeds easily, transfusion of at least 4 units within 72 hours prior to surgery and chronic anti-coagulation/platelet meds. Oncology: +prostate CA s/p XRT, hormone therapy, following [facility] +kidney CA s/p nephrectomy Psych: No history of psychiatric symptoms or problems. Musculoskeletal: Positive for: joint pain (ankle). Skin: Negative for lesions, rash and itching. Implanted Devices: No implanted devices. PAST MEDICAL HISTORY Diagnosis Date Diabetes mellitus (HCC) Essential hypertension History of prostate cancer PAST SURGICAL HISTORY Procedure Laterality Date CHOLECYSTECTOMY PAST SURGICAL HISTORY OF Prostate PAST SURGICAL HISTORY OF defibrilator REMOVAL OF KIDNEY FAMILY HISTORY Problem Relation Age of Onset No Ocular Disease No Family History Cancer No Family History Hypertension No Family History Diabetes No Family History Heart No Family History Social History Tobacco Use Smoking status: Former Current packs/day: 0.00 Types: Cigarettes Quit date: 05/22/1978 Years since quittin.2 Smokeless tobacco: Never Vaping Use Vaping status: Never Used Substance Use Topics Alcohol use: No Drug use: No Prior to Admission medications as of 08/25/24 0908 Medication Sig Last Dose Taking acetaminophen (TYLENOL EXTRA STRENGTH ORAL) Take by mouth. Yes FARXIGA 10 mg tablet Take 1 tablet by mouth every afternoon. Yes glimepiride (AMARYL) 1 mg tablet 4 mg. Yes carvedilol (COREG) 12.5 mg tablet TAKE 1 TABLET BY MOUTH TWICE A DAY WITH MEAL/FOOD Yes furosemide (LASIX) 40 mg tablet Take 1 tablet by mouth once daily. Yes losartan (COZAAR) 25 mg tablet Take 1 tablet by mouth once daily. Yes SIMVASTATIN ORAL Take 10 mg by mouth once daily. Yes dulaglutide (TRULICITY) 0.75 mg / 0.5 ml subcutaneous pen injector Inject subcutaneously. Yes vit C,G-Vg-mwczi-lutein-zeaxan (PRESERVISION AREDS-2) 641-991-24-1 un-bkxg-nt-mg cap Take 1 capsuleby mouth twice daily. Yes No medication comments found. ALLERGIES No Known Allergies Objective PHYSICAL EXAM: General: alert and oriented (x3), healthy appearance and obese. Pertinent negatives noted - not distressed. Skin: normal color, no rash or lesions. HEENT: EOM intact and pupils equal round. Pertinent negatives noted - no carotid bruit. Cardiovascular: regular rate and rhythm, normal S1 and S2, no rub, murmurs, or gallop. Respiratory: normal breath sounds, no wheezes or crackles. No chest wall deformity or tenderness. Abdomen: soft. Pertinent negatives noted - not tender. Extremities: no deformity, no edema or tenderness, no joint swelling or clubbing. Neurological: normal cognition and motor skills. Gait normal. No weakness or sensory deficit. PAIN ASSESSMENT: VITALS: BP 108/70 Pulse 74 Temp (Src) 96.9 (Temporal) Resp 16 Ht 5' 10 (1.78m) Wt 220 lb (99.8kg) SpO2 95% BMI 31.57 kg/(m^2). Diagnostic tests reviewed for today's visit: Lab Value Units Date High Low HB No results within date range. HCT No results within date range. WBC No results within date range. PLT No results within date range. NA No results within date range. K No results within date range. GLUC No results within date range. BUN No results within date range. CREAT No results within date range. PTSEC No results within date range. INR No results within date range. APTT No results within date range. ALT No results within date range. AST No results within date range. TBILI No results within date range. TSH No results within date range. Lab Value Units Date High Low HCGQT No results within date range. UHCG No results within date range. HCG, BODY* No results within date range. Lab Value Units Date High Low ABORHD No results within date range. ABSCREEN No results within date range. No results found for: HBA1C No results found for this or any previous visit (from the past 8760 hours). No results found for this or any previous visit (from the past 90373 hours). Instructions Given to Patient: Instructions located in the after visit summary. Patient given verbal and written preop instructions and voices comprehension and compliance. SIGNATURE: Jackelin Hassan APRN.CNP PATIENT NAME: Sherrell Genao DATE: August 25, 2024 TIME: 8:30 AM PAGER/CONTACT #: [facility]-12-[facility] History and physical note* Jackelin Hassan APRN.CNP - 08/25/2024 8:30 AM EST Images from the original note were not included. [facility] HISTORY AND PHYSICAL EXAMINATION SERVICE DATE: 08/25/2024 SERVICE TIME: 9:29 AM PRIMARY CARE PHYSICIAN: Shane Schreiber MD Assessment Patient has the following medical conditions which may affect tammy-operative course: Type 2 diabetes mellitus without retinopathy (HCC) Assessment: controlled with weekly injectable, oral agents, recent labs requested from [facility] BMI 31.0-31.9,adult Assessment: Body mass index is 31.57 kg/m . Chronic combined systolic and diastolic heart failure (HCC) Assessment: controlled on rx, following [facility], Dr. Hilliard, records requested Hypertension Assessment: controlled on rx Last 14 BP Last 14 Encounter BP Readings: Date: BP: 08/25/2024 108/70 Implantable cardioverter-defibrillator (ICD) in situ Assessment: following cardiology, records requested Nonrheumatic mitral valve regurgitation Assessment: per [facility], records requested Pulmonary arterial hypertension (HCC) Assessment: per [facility], records requested Hearing loss Assessment: hearing aides Chronic kidney disease Assessment: recent labs requested Malignant neoplasm of left kidney (HCC) Assessment: s/p left nephrectomy Prostate cancer (HCC) Assessment: following [facility], hx XRT and hormone therapy, records requested Dyslipidemia Assessment: c/w statin Bilateral carotid artery stenosis Assessment: chronic, stable, no surgical interventions, following cardiology, records requested Low platelet count (HCC) Assessment: per [facility], recent labs requested Perez Activity Status Index: METS: Climb a flight of stairs or walk up a hill (5.50 METs) DASI Score: 5.5 Patient denies any chest pain or undue shortness of breath with the above physical activity. Clinical Frailty Scale: 1. Very fit STOP-Bang Score: Male patient Denies snoring loudly Denies feeling tired, fatigued, or sleepy during the daytime Has not been observed to stop breathing or choking/gasping during sleep Denies having high blood pressure BMI less than or equal to 35 kg/m^2 Patient 50 years old or younger Does not have a large neck STOP-Bang Score: 1 [id number] Score: Age: >=75 Sex: male CHF history: Yes Hypertension history: Yes Stroke/TIA/thromboembolism history: No Vascular disease history: Yes Diabetes history: Yes [id number] Score: 6 ARISCAT Score: Age: 51-80 Preoperative SpO2: 91-95% Respiratory infection in the last month: No Preoperative anemia: No Surgical incision: peripheral Duration of surgery: <2 hrs Emergency procedure: No ARISCAT Score: 11 ANESTHESIA FINDINGS: Intubation History: No history of difficult intubation Significant Anesthesia Considerations: none Airway History: No history of difficult airway I - PHYSICAL EVALUATION AIRWAY Patient intubated: No. Tracheostomy tube not present Mallampati: III. TM distance: >3 FB. Neck ROM: full ROM without neurological symptoms. Mouth opening: adequate. Short neck: no. Thick neck: yes Márquez present: no Lip Bite Test: I Microretrognathia/Micronagthia/Recessed Chin: No DENTAL Dental findings: teeth intact. Additional comments: +crowns/back. II - ANESTHESIA PLAN Anesthetic Plan: other Beta Ken Monitoring Plan Post Procedure Analgesic Plan Prepared for Surgery: optimally prepared for surgery. CONSULTS: Patient does not require consults for optimization at this time Planned Anesthetic: other anesthesia choice The Following Tests/Procedures Have Been Initiated: Orders Placed This Encounter acetaminophen (TYLENOL EXTRA STRENGTH ORAL) Sig: Take by mouth. REASON FOR VISIT: Sherrell Genao is a 79 year old male who is scheduled for Procedure(s): PHACOEMULSIFICATION CATARACT IMPLANT INTRAOCULAR LENS W/O ENDOSCOPIC CYCLOPHOTOCOAGULATION (Right) OPHTHALMIC BIOMETRY BY PARTIAL COHERENCE INTERFEROMETRY W/INTRAOCULAR LENS POWER CALCULATION (Right) at the request of Dr. Johan Jimenez for consultation. My final recommendation will be communicatedback to the requesting physician by way of shared medical record or letter. Subjective The patient has the following: COVID-19 Immunization Status Upcoming Covid-19 Vaccine () Next due on 11/23/2024 05/26/2024 Imm Admin: COVID-19 vaccine, age 12+ yr (MODERNA) 04/18/2023 Imm Admin: COVID-19 vaccine, age 12+ yr (MODERNA) 04/04/2022 Imm Admin: COVID-19 vaccine, age 12+ yr, bivalent (MODERNA) Only the first 3 history entries have been loaded, but more history exists. CHIEF COMPLAINT: Pre-op exam HPI: Sherrell Genao is a 79 year old seen for PAC due to scheduled above surgery because of cataracts. 07/21/2024, Dr. Johan Jimenez 5. Combined forms of age-related cataract of both eyes Cataract Presurgical Documentation Cataract: Right eye (OD) Current Visual Acuity Right Eye Distance CC 20/70 Left Eye Distance CC 20/60 Best Corrected Vision Right Eye 20/60 Best Corrected Vision Left Eye 20/60-1 Glare Testing: N/A Visual Function: Sherrell Genao states that the decline in vision from the cataract impedes his abilities as listed in the HPI, as well as other activities of daily living. Sherrell Genao has confirmed that he is no longer able to function adequately on a day-to-day basis because of his current visual condition. Further, it is my medical opinion that the cataract is the primary cause, or at least a significantly contributory cause of his visual dysfunction. With uncomplicated cataract surgery and lens implantation, it is my expectation that his visual function and quality of life will improve, significantly. REVIEW OF SYSTEMS: General: No weight loss, malaise or fevers. Neurological: No history of TIA's, stroke, BROWN STOCK WASHER tumor, impaired sensorium, hemiplegia, paraplegia orquadraplegia. No neurological symptoms or problems. Respiratory: No history of current cough or dyspnea, or pneumonia in the past 6 weeks. No history of respiratory/pulmonary symptoms or problems. Cardiovascular: Positive for: AICD/PPM, arrhythmia, CHF, hyperlipidemia, hypertension, murmur/valvular heart disease and PVD (no revascularization) Negative for: abdominal aortic aneurysm, angina, anticoagulation therapy, atrial fibrillation, CAD,chest pain, congenital heart defect, DVT/PE, recent IA, PTCA, open heart surgery and valve surgery. GI: Positive for: GERD (otc rx as needed) Negative for: abdominal pain, dysphagia, hepatitis, irritable bowel syndrome, inflammatory bowel disease, liver disease, nausea, pancreatitis, vomiting and ETOH >2 drinks/day. : Positive for: frequent urination (2/2 XRT) and renal failure. Patient's renal failure is chronic. Negative for: urinary incontinence, nephrolithiasis and urinary tract infection. Endocrine: Positive for: diabetes mellitus. Patient's diabetes mellitus is controlled by oral agents and weekly injectable. Negative for: hypothyroidism. Hematology: Positive for: thrombocytopenia. Negative for: anemia, bruises/bleeds easily, transfusion of at least 4 units within 72 hours prior to surgery and chronic anti-coagulation/platelet meds. Oncology: +prostate CA s/p XRT, hormone therapy, following [facility] +kidney CA s/p nephrectomy Psych: No history of psychiatric symptoms or problems. Musculoskeletal: Positive for: joint pain (ankle). Skin: Negative for lesions, rash and itching. Implanted Devices: No implanted devices. PAST MEDICAL HISTORY Diagnosis Date Diabetes mellitus (HCC) Essential hypertension History of prostate cancer PAST SURGICAL HISTORY Procedure Laterality Date CHOLECYSTECTOMY PAST SURGICAL HISTORY OF Prostate PAST SURGICAL HISTORY OF defibrilator REMOVAL OF KIDNEY FAMILY HISTORY Problem Relation Age of Onset No Ocular Disease No Family History Cancer No Family History Hypertension No Family History Diabetes No Family History Heart No Family History Social History Tobacco Use Smoking status: Former Current packs/day: 0.00 Types: Cigarettes Quit date: 05/22/1978 Years since quittin.2 Smokeless tobacco: Never Vaping Use Vaping status: Never Used Substance Use Topics Alcohol use: No Drug use: No Prior to Admission medications as of 08/25/24 0908 Medication Sig Last Dose Taking acetaminophen (TYLENOL EXTRA STRENGTH ORAL) Take by mouth. Yes FARXIGA 10 mg tablet Take 1 tablet by mouth every afternoon. Yes glimepiride (AMARYL) 1 mg tablet 4 mg. Yes carvedilol (COREG) 12.5 mg tablet TAKE 1 TABLET BY MOUTH TWICE A DAY WITH MEAL/FOOD Yes furosemide (LASIX) 40 mg tablet Take 1 tablet by mouth once daily. Yes losartan (COZAAR) 25 mg tablet Take 1 tablet by mouth once daily. Yes SIMVASTATIN ORAL Take 10 mg by mouth once daily. Yes dulaglutide (TRULICITY) 0.75 mg / 0.5 ml subcutaneous pen injector Inject subcutaneously. Yes vit C,T-Mu-whtys-lutein-zeaxan (PRESERVISION AREDS-2) [id number] ks-thxd-nu-mg cap Take 1 capsuleby mouth twice daily. Yes No medication comments found. ALLERGIES No Known Allergies Objective PHYSICAL EXAM: General: alert and oriented (x3), healthy appearance and obese. Pertinent negatives noted - not distressed. Skin: normal color, no rash or lesions. HEENT: EOM intact and pupils equal round. Pertinent negatives noted - no carotid bruit. Cardiovascular: regular rate and rhythm, normal S1 and S2, no rub, murmurs, or gallop. Respiratory: normal breath sounds, no wheezes or crackles. No chest wall deformity or tenderness. Abdomen: soft. Pertinent negatives noted - not tender. Extremities: no deformity, no edema or tenderness, no joint swelling or clubbing. Neurological: normal cognition and motor skills. Gait normal. No weakness or sensory deficit. PAIN ASSESSMENT: VITALS: BP 108/70 Pulse 74 Temp (Src) 96.9 (Temporal) Resp 16 Ht 5' 10 (1.78m) Wt 220 lb (99.8kg) SpO2 95% BMI 31.57 kg/(m^2). Diagnostic tests reviewed for today's visit: Lab Value Units Date High Low HB No results within date range. HCT No results within date range. WBC No results within date range. PLT No results within date range. NA No results within date range. K No results within date range. GLUC No results within date range. BUN No results within date range. CREAT No results within date range. PTSEC No results within date range. INR No results within date range. APTT No results within date range. ALT No results within date range. AST No results within date range. TBILI No results within date range. TSH No results within date range. Lab Value Units Date High Low HCGQT No results within date range. UHCG No results within date range. HCG, BODY* No results within date range. Lab Value Units Date High Low ABORHD No results within date range. ABSCREEN No results within date range. No results found for: HBA1C No results found for this or any previous visit (from the past 8760 hours). No results found for this or any previous visit (from the past 17593 hours). Instructions Given to Patient: Instructions located in the after visit summary. Patient given verbal and written preop instructions and voices comprehension and compliance. SIGNATURE: Jackelin Hassan APRN.CNP PATIENT NAME: Sherrell Genao DATE: August 25, 2024 TIME: 8:30 AM PAGER/CONTACT #: documented in this encounterWadsworth-[facility]02-[facility] Miscellaneous Notes* Telephone Encounter - Geetha Farris RN - 08/19/2024 6:18 PM EST All pre-operative drops for the right eye pended to Dr. Jimenez for approval. Geetha Farris RN August 19, 2024 6:20 PM documented in this encounterWadsworth-[facility]ittman [facility]02-06-2025 Telephone encounter Note * Telephone Encounter - Geetha Farris RN - 08/19/2024 6:18 PM EST All pre-operative drops for the right eye pended to Dr. Jimenez for approval. Geetha Farris RN August 19, 2024 6:20 PM [facility]01-13[facility]25 NoteDate of Procedure 07/21/2024. Notes Measurements only - see Procedure Record under Scanned Documents for signed results.[id number] NoteDate of Procedure 07/21/2024. Astigmatism Right Eye Irregular. Left Eye Irregular. Interval Change Right Eye Intial . Left Eye Intial .[id number] Instructions* Patient Instructions* Johan Jimenez MD - 07/21/2024 9:29 AM EST Images from the original note were not included. Pre-Op Instructions for patients of Dr. Johan Jimenez 2 days prior to surgery start: Prednisolone acetate-use one drop four times a day in operative eye Moxifloxacin/Polytrim- use one drop four times each day in operative eye Ketorolac - use one drop four times each day in operative eye You may use the drops in any order, but close your eye for 5 minutes after each drop. Continue to use any previous eye drops unless instructed otherwise. Day of Surgery: Do not eat or drink anything 8 hours prior to procedure time. Take all of your morning medication with only enough water to swallow them unless instructed otherwise by Dr. Jimenez or Primary Care physician. Get one drop of Moxifloxacin and Ketorolac in the operative eye prior to arriving at the surgery center. After your surgery: Do not remove your eye shield at home, except to instill your medication eye drops. Your eye shieldwill be removed in the office the following day. No heavy lifting or bending from the waist. Limit your activity. Avoid bumping or rubbing the operative eye. You will be given instructions in the surgery center about starting the three eyedrops after surgery. Call the office if you have any questions or concerns at , option 1. If the call is after business hours you will automatically connect with the answering service and they will contact your doctor as needed For Surgery Patients who are taking Medications for Diabetes and/or Weight Loss The two types of medications, GLP-1 agonists and SGLT2 inhibitors, can cause problems with surgery and anesthesia. If you take these medications, you will need to stop them before surgery. Please discuss this with your surgeon or with Kisha Clifton in the Pre-anesthesia Consultation Clinic ([phone]) to get instructions on their use before stopping them. GLP-1 agonists can cause your stomach to empty more slowly. If you stomach is not empty at the time of surgery, it increases the risk of vomiting during anesthesia and surgery can be dangerous. Usually, injectable GLP-1 agonists that are used weekly should be stopped at least 7 days prior to surgery. GLP-1 agonists that are taken orally should be stopped the day before surgery. If you do not stop taking these medications as directed, your surgery may be cancelled or delayed. Example of these medications include (but not limited to) the following: GLP-1 agonists Injectable Oral Dulaglutide (Trulicity ) Semaglutide (Rybelsus ) Exenatide (Byeta , Bydureon ) Liraglutide (Victoza , Saxenda ) Semaglutide (Ozempic , Wegovy ) Tirzepatide (Mounjaro , Zepbound ) SGLT-2 inhibitors can cause blood chemistry problems in patients who stop eating. Because surgery patients are asked to stop eating before surgery, you will need to stop taking these medications 3-4 days before surgery. SGLT2 Inhibitors include: Oral Bexagliflozin (Benzavvy ) Canagliflozin (Invokana ) Dapagliflozin (Farziga ) Empagliflozin (Jardiance ) Ertugliflozin (Steglatro ) If you have any questions regarding these presurgical instructions on how to take these medications, please call your surgeon's office or call Kisha Clifton or a Pre-Anesthesia Testing steam locomotive firer/fireman at [phone]. documented in this encounterWadsworth-Rittman [facility]01-08-2025 NoteHNO ID: [id number] Author: JOHAN JIMENEZ MD Service: ? 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 Photophobia of both eyes 3. Visual field loss -seen by by Antwan in Jul 2018. MRI with bilateral optic nerve atrophy -stable -main complaint is sensitivity to light - OCT OPTIC NERVE CIRRUS OU (BOTH EYES) with diffuse nerve fiber layer thinning both eyes - johansen visual field (HVF) with diffuse constriction left eye > right eye 4. Type 2 diabetes mellitus without retinopathy (HCC) -no diabetic retinopathy both eyes 5. Combined forms of age-related cataract of both eyes Cataract Presurgical Documentation Cataract: Right eye (OD) Current Visual Acuity Right Eye Distance CC 20/70 Left Eye Distance CC 20/60 Best Corrected Vision Right Eye 20/60 Best Corrected Vision Left Eye 20/60-1 Glare Testing: N/A Visual Function: Sherrell Genao states that the decline in vision from the cataract impedes his abilities as listed in the HPI, as well as other activities of daily living. Sherrell Genao has confirmed that he is no longer able to function adequately on a day-to-day basis because of his current visual condition. Further, it is my medical opinion that the cataract is the primary cause, or at least a significantly contributory cause of his visual dysfunction. With uncomplicated cataract surgery and lens implantation, it is my expectation that his visual function and quality of life will improve, significantly. The risks, benefits, alternatives, personnel and complications of cataract surgery with lens implantation were discussed with Sherrell Genao in detail. he appeared to understand and asked that I proceed with plans for surgery. 6. 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 I have seen and examined Sherrell Genao. I have discussed the case and the management of this patient's care with the Resident/Fellow, if applicable. I also have reviewed and agree with the assessment and plan as stated above and agree with all of its relevant components. Johan Jimenez [facility]01-08-2025 History of Present illness Narrative* Johan Jimenez MD - 07/21/2024 9:23 AM EST Assessment and Plan 1. 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 Photophobia of both eyes 3. Visual field loss -seen by by Antwan in Jul 2018. MRI with bilateral optic nerve atrophy -stable -main complaint is sensitivity to light - OCT OPTIC NERVE CIRRUS OU (BOTH EYES) with diffuse nerve fiber layer thinning both eyes - johansen visual field (HVF) with diffuse constriction left eye > right eye 4. Type 2 diabetes mellitus without retinopathy (HCC) -no diabetic retinopathy both eyes 5. Combined forms of age-related cataract of both eyes Cataract Presurgical Documentation Cataract: Right eye (OD) Current Visual Acuity Right Eye Distance CC 20/70 Left Eye Distance CC 20/60 Best Corrected Vision Right Eye 20/60 Best Corrected Vision Left Eye 20/60-1 Glare Testing: N/A Visual Function: Sherrell Genao states that the decline in vision from the cataract impedes his abilities as listed in the HPI, as well as other activities of daily living. Sherrell Genao has confirmed that he is no longer able to function adequately on a day-to-day basis because of his current visual condition. Further, it is my medical opinion that the cataract is the primary cause, or at least a significantly contributory cause of his visual dysfunction. With uncomplicated cataract surgery and lens implantation, it is my expectation that his visual function and quality of life will improve, significantly. The risks, benefits, alternatives, personnel and complications of cataract surgery with lens implantation were discussed with Sherrell Genao in detail. he appeared to understand and asked that I proceedwith plans for surgery. 6. 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 I have seen and examined Sherrell Genao. I have discussed the case and the management of this patient's care with the Resident/Fellow, if applicable. I also have reviewed and agree with the assessment and plan as stated above and agree withall of its relevant components. Johan Jimenez MD documented in this encounterWadsworth-[facility]01-02-2025 Evaluation note* Diagnosis Onset Date Resolution Status Admit Date Diarrhea acute July 15 025 3:11pm Chronic kidney disease (CKD) chronic July 15 3:11pm Essential (primary) hypertension July 15 3:11pm Hyperlipidemia chronic July 3:11pm Type 2 diabetes mellitus July 15, 2024 3:11pm Chronic combined systolic and diastolic CHF (congestive heart failure) chronic 2024 8:43am Essential (primary) hypertension chronic August 23 8:43am Implantable cardioverter-defibrillator (ICD) in situ August 24, 2020August 8:43am [facility] Work Phone: 1(963) 714-154001-02-2025 Evaluation note* Diagnosis Onset Date Resolution Status Admit Date Diarrhea acute July 15 3:11pm Chronic kidney disease (CKD) chronic July 15 3:11pm Essential (primary) hypertension July 15 3:11pm Hyperlipidemia july 3:11pm Type 2 diabetes mellitus July 15, 2024 3:11pm 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 Author Type: PEDIATRIC PHYSICIAN Type: Progress Notes Filed: 07/01/2024 12:48 Note Text: 1. Type 2 diabetes mellitus without retinopathy (HCC) Risk of diabetic changes and vision loss can be minimized by tight control of blood sugar, blood pressure, and cholesterol levels. Educated patient to continue care with primary care doctor and/or mother repairer to maintain optimum levels as they are important to avoid ocular complications. Encouraged patient to call the office immediately with any changes to vision or visual concerns. Advised to not wait until the next scheduled exam. 2. 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 MRI with bilateral optic nerve atrophy Appears stable 3. Combined forms of age-related cataract of both eyes +visually significant Recommend consult with Dr. Jimenez 4. Epiretinal membrane (ERM) of both eyes Mild- monitor 5. Refractive error Continue with current glasses for now 6. Posterior vitreous detachment of both eyes Stable Retina precautions discussed 7. Dermatochalasis of both upper eyelids Patient notes worsening and sees better by raising eyebrows Will monitor for now but consider blepharoplasty eval in future Follow-up with Dr. Jimenez for cat eval Franklin Tony, OD July 01, 2024 12:46 [facility]12-19-2024 History of Present illness Narrative* Franklin Tony, OD - 07/01/2024 12:46 PM EST 1. Type 2 diabetes mellitus without retinopathy (HCC) Risk of diabetic changes and vision loss can be minimized by tight control of blood sugar, blood pressure, and cholesterol levels. Educated patient to continue care with primary care doctor and/or mother repairer to maintain optimum levels as they are important to avoid ocular complications. Encouraged patient to call the office immediately with any changes to vision or visual concerns. Advised to not wait until the next scheduled exam. 2. 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 MRI with bilateral optic nerve atrophy Appears stable 3. Combined forms of age-related cataract of both eyes +visually significant Recommend consult with Dr. Jimenez 4. Epiretinal membrane (ERM) of both eyes Mild- monitor 5. Refractive error Continue with current glasses for now 6. Posterior vitreous detachment of both eyes Stable Retina precautions discussed 7. Dermatochalasis of both upper eyelids Patient notes worsening and sees better by raising eyebrows Will monitor for now but consider blepharoplasty eval in future Follow-up with Dr. Jimenez for cat eval Franklin Tony, OD July 01, 2024 12:46 PM documented in this encounterWadsworth-Rittman [facility]12-19-2024 NoteDate of Procedure 07/01/2024. Head Kiln Operator Information Neck Band Operator: BP. Start time: 9:29 AM. Stop time: 9:29 AM. OCT Macula Interpretation Right Eye Abnormal foveal contour. Findings include Epiretinal membrane. Left Eye Abnormal foveal contour. Findings include Epiretinal membrane. Interval Change Right Eye Initial. Left Eye Initial.[id number] History of Present illness Narrative* Franklin Tony, OD - 03/19/2022 10:25 AM EDT 1. Hypermetropia, bilateral 2. Presbyopia 3. Photophobia of both eyes Finalized spec rx with mild change-okay to continue with current glasses Will inquire about FL-41 tinted lenses 4. 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 Jimenez 5. Dry eye syndrome of both eyes Continue Zaditor and artificial tears as needed 6. Type 2 diabetes mellitus without retinopathy (HCC) 7. Combined forms of age-related cataract of both eyes Follow-up with Dr. Jimenez in 6 months and me in 1 year Franklin Tony, OD March 19, 2022 10:25 AM documented in this encounterWadsworth-[facility]itt[facility]02-11-2021 Evaluation note* Diagnosis Onset Date Resolution Status Chronic combined systolic an d diastolic CHF (congestive heart failure) chronic Dilated cardiomyopathy chron ic Implantable cardioverter-def ibrillator (ICD) in situ August 24, 2020 chronic Dilated cardiomyopathy chron ic Essential (primary) hypertension chronic Implantable cardioverter-def ibrillator (ICD) in situ August 24, 2020 chronic Chronic kidney disease (CKD) chronic Essential (primary) hypertension chronic Type 2 diabetes mellitus [facility] Work Phone: 1(478) 271-828002-11-2021 Evaluation note* Diagnosis Onset Date Resolution Status Chronic combined systolic an d diastolic CHF (congestive heart failure) chronic Dilated cardiomyopathy chron ic Implantable cardioverter-def ibrillator (ICD) in situ August 24, 2020 chronic Dilated cardiomyopathy chron ic Essential (primary) hypertension chronic Implantable cardioverter-def ibrillator (ICD) in situ August 24, 2020 chronic Chronic kidney disease (CKD) chronic Essential (primary) hypertension chronic Type 2 diabetes mellitus chr onic Chronic combined systolic an d diastolic CHF (congestive heart failure) chronic Dilated cardiomyopathy chron ic Implantable cardioverter-def ibrillator (ICD) in situ August 24, 2020 chronic Dilated cardiomyopathy chron ic Essential (primary) hypertension chronic Implantable cardioverter-def ibrillator (ICD) in situ August 24, 2020 [facility] Work Phone: 1(457) 955-954502-11-2021 Evaluation note* Diagnosis Onset Date Resolution Status Chronic combined systolic an d diastolic CHF (congestive heart failure) chronic Dilated cardiomyopathy chron ic Implantable cardioverter-def ibrillator (ICD) in situ August 24, 2020 chronic Dilated cardiomyopathy chron ic Essential (primary) hypertension chronic Implantable cardioverter-def ibrillator (ICD) in situ August 24, 2020 chronic Chronic combined systolic an d diastolic CHF (congestive heart failure) chronic Essential (primary) hypertension chronic Prostate cancer chronic Type 2 diabetes mellitus chr onic Chronic combined systolic an d diastolic CHF (congestive heart failure) chronic Chronic kidney disease (CKD) chronic Type 2 diabetes mellitus [facility] Work Phone: 1(448) 719-934302-11-2021 Evaluation note* Diagnosis Onset Date Resolution Status Chronic combined systolic an d diastolic CHF (congestive heart failure) chronic Dilated cardiomyopathy chron ic Implantable cardioverter-def ibrillator (ICD) in situ August 24, 2020 chronic Chronic combined systolic an d diastolic CHF (congestive heart failure) chronic Dilated cardiomyopathy chron ic Implantable cardioverter-def ibrillator (ICD) in situ August 24, 2020 chronic Chronic kidney disease (CKD) chronic Essential (primary) hypertension chronic Type 2 diabetes mellitus [facility] Work Phone: [phone]) 722-167002-11-2021 Evaluation note* Diagnosis Onset Date Resolution Status Chronic combined systolic an d diastolic CHF (congestive heart failure) chronic Dilated cardiomyopathy chron ic Implantable cardioverter-def ibrillator (ICD) in situ August 24, 2020 chronic Chronic combined systolic an d diastolic CHF (congestive heart failure) chronic Dilated cardiomyopathy chron ic Implantable cardioverter-def ibrillator (ICD) in situ August 24, 2020 chronic Chronic kidney disease (CKD) chronic Essential (primary) hypertension chronic Type 2 diabetes mellitus chr onic Dilated cardiomyopathy chron ic Essential (primary) hypertension chronic Hyperlipidemia chronic Implantable cardioverter-def ibrillator (ICD) in situ August 24, 2020 chronic Chronic combined systolic an d diastolic CHF (congestive heart failure) chronic Dilated cardiomyopathy chron ic Implantable cardioverter-def ibrillator (ICD) in situ August 24, 2020 chronic Chronic combined systolic an d diastolic CHF (congestive heart failure) chronic Essential (primary) hypertension chronic Hyperlipidemia chronic Type 2 diabetes mellitus [facility] Work Phone: [phone]) 679-980102-11-2021 Evaluation note* Diagnosis Onset Date Resolution Status Chronic combined systolic an d diastolic CHF (congestive heart failure) chronic Dilated cardiomyopathy chron ic Implantable cardioverter-def ibrillator (ICD) in situ August 24, 2020 chronic Chronic kidney disease (CKD) chronic Essential (primary) hypertension chronic Type 2 diabetes mellitus chr onic Dilated cardiomyopathy chron ic Essential (primary) hypertension chronic Hyperlipidemia chronic Implantable cardioverter-def ibrillator (ICD) in situ August 24, 2020 chronic Chronic combined systolic an d diastolic CHF (congestive heart failure) chronic Dilated cardiomyopathy chron ic Implantable cardioverter-def ibrillator (ICD) in situ August 24, 2020 chronic Chronic combined systolic an d diastolic CHF (congestive heart failure) chronic Essential (primary) hypertension chronic Hyperlipidemia chronic Type 2 diabetes mellitus [facility] Work Phone: [phone]) 159-345802-11-2021 Evaluation note* Diagnosis Onset Date Resolution Status Chronic combined systolic an d diastolic CHF (congestive heart failure) chronic Dilated cardiomyopathy chron ic Implantable cardioverter-def ibrillator (ICD) in situ August 24, 2020 chronic Chronic kidney disease (CKD) chronic Essential (primary) hypertension chronic Type 2 diabetes mellitus [facility] Work Phone: Evaluation + Plan note No data available for this section [facility] Evaluation note* Diagnosis Hypermetropia, bilateral- Primary Presbyopia Photophobia of both eyes Visual discomfort 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 Ischemic optic neuropathy Dry eye syndrome of both eyes Type 2 diabetes mellitus without retinopathy (HCC) Type II or unspecified type diabetes mellitus without mention of complication, not stated as uncontrolled Combined forms of age-related cataract of both eyes Other and combined forms of senile cataract [facility] Diagnosis Onset Date Resolution Status Chronic combined systolic an d diastolic CHF (congestive heart failure) chronic Essential (primary) hypertension chronic Prostate cancer chronic Type 2 diabetes mellitus chr onic Chronic combined systolic an d diastolic CHF (congestive heart failure) chronic Chronic kidney disease (CKD) chronic Type 2 diabetes mellitus chr onic Chronic combined systolic an d diastolic CHF (congestive heart failure) chronic Dilated cardiomyopathy chron ic Implantable cardioverter-def ibrillator (ICD) in situ August 24, 2020 chronic Chronic combined systolic an d diastolic CHF (congestive heart failure) chronic Dilated cardiomyopathy chron ic Implantable cardioverter-def ibrillator (ICD) in situ August 24, 2020 chronic Chronic kidney disease (CKD) chronic Essential (primary) hypertension chronic Type 2 diabetes mellitus [facility] Work Phone: Evaluation note* Diagnosis Onset Date Resolution Status Essential (primary) hypertension chronic Hyperlipidemia chronic Prostate cancer chronic Type 2 diabetes mellitus chr onic Chronic combined systolic an d diastolic CHF (congestive heart failure) chronic Dilated cardiomyopathy chron ic Implantable cardioverter-def ibrillator (ICD) in situ August 24, 2020 chronic Dilated cardiomyopathy chron ic Essential (primary) hypertension chronic Hyperlipidemia chronic Implantable cardioverter-def ibrillator (ICD) in situ August 24, 2020 [facility] Work Phone: Evaluation note* Diagnosis Onset Date Resolution Status Essential (primary) hypertension chronic Hyperlipidemia chronic Prostate cancer chronic Type 2 diabetes mellitus chr onic Chronic combined systolic an d diastolic CHF (congestive heart failure) chronic Dilated cardiomyopathy chron ic Implantable cardioverter-def ibrillator (ICD) in situ August 24, 2020 chronic Dilated cardiomyopathy chron ic Essential (primary) hypertension chronic Hyperlipidemia chronic Implantable cardioverter-def ibrillator (ICD) in situ August 24, 2020 chronic Screening for thyroid disorder acute Chronic fatigue chronic Essential (primary) hypertension chronic Prostate cancer chronic Type 2 diabetes mellitus chr [facility] Work Phone: Evaluation note* Diagnosis Onset Date Resolution Status Screening for thyroid disorder acute Chronic fatigue chronic Essential (primary) hypertension chronic Prostate cancer chronic Type 2 diabetes mellitus [facility] Work Phone: Evaluation note* Diagnosis Onset Date Resolution Status Screening for thyroid disorder acute Chronic fatigue chronic Essential (primary) hypertension chronic Prostate cancer chronic Type 2 diabetes mellitus chr onic Chronic combined systolic an d diastolic CHF (congestive heart failure) chronic Chronic kidney disease (CKD) chronic Essential (primary) hypertension chronic Type 2 diabetes mellitus chr onic Dilated cardiomyopathy chron ic Essential (primary) hypertension chronic Hyperlipidemia chronic Implantable cardioverter-def ibrillator (ICD) in situ August 24, 2020 [facility] Work Phone: Evaluation note* Diagnosis Type 2 diabetes mellitus without retinopathy (HCC)- Primary Type II or unspecified type diabetes mellitus without mention of complication, not stated as uncontrolled Other optic atrophy, 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 Other and combined forms of senile cataract Epiretinal membrane (ERM) of both eyes Refractive error Unspecified disorder of refraction and accommodation Posterior vitreous detachment of both eyes Vitreous degeneration Dermatochalasis of both upper eyelids [facility] Diagnosis Combined forms of age-related cataract of both eyes- Primary Other and combined forms of senile cataract Refractive error Unspecified disorder of refraction and accommodation Type 2 diabetes mellitus without retinopathy (HCC) Type II or unspecified type diabetes mellitus without mention of complication, not stated as uncontrolled Other optic atrophy, bilateral Posterior vitreous detachment of both eyes Vitreous degeneration Dermatochalasis of both upper eyelids [facility] Diagnosis Pre-operative examination- Primary Preoperative examination, unspecified Type 2 diabetes mellitus without retinopathy (HCC) Type II or unspecified type diabetes mellitus without mention of complication, not stated as uncontrolled BMI 31.0-31.9,adult Body Mass Index 31.0-31.9, adult Chronic combined systolic and diastolic heart failure (HCC) Chronic combined systolic and diastolic heart failure Primary hypertension Unspecified essential hypertension Implantable cardioverter-defibrillator (ICD) in situ Nonrheumatic mitral valve regurgitation Pulmonary arterial hypertension (HCC) Other chronic pulmonary heart diseases Hearing loss, unspecified hearing loss type, unspecified laterality Chronic kidney disease, unspecified CKD stage Malignant neoplasm of left kidney (HCC) Prostate cancer (HCC) Malignant neoplasm of prostate Dyslipidemia Other and unspecified hyperlipidemia Bilateral carotid artery stenosis Occlusion and stenosis of carotid artery without mention of cerebral infarction Low platelet count (HCC) Combined forms of age-related cataract of right eye Other and combined forms of senile cataract * Assessment & Plan Note - Jackelin Hassan APRN.CNP - 08/25/2024 9:26 AM EST Associated Problem(s): Low platelet count (HCC) Assessment: per epic, recent labs requested * Assessment & Plan Note - Jackelin Hassan APRN.CNP - 08/25/2024 9:26 AM EST Associated Problem(s): Bilateral carotid artery stenosis Assessment: chronic, stable, no surgical interventions, following cardiology, records requested * Assessment & Plan Note - Jackelin Hassan APRN.CNP - 08/25/2024 9:25 AM EST Associated Problem(s): Dyslipidemia Assessment: c/w statin * Assessment & Plan Note - Jackelin Hassan APRN.CNP - 08/25/2024 9:25 AM EST Associated Problem(s): Prostate cancer (HCC) Assessment: following [facility], hx XRT and hormone therapy, records requested * Assessment & Plan Note - Jackelin Hassan APRN.CNP - 08/25/2024 9:22 AM EST Associated Problem(s): Malignant neoplasm of left kidney (HCC) Assessment: s/p left nephrectomy * Assessment & Plan Note - Jackelin Hassan APRN.CNP - 08/25/2024 9:21 AM EST Associated Problem(s): Chronic kidney disease Assessment: recent labs requested * Assessment & Plan Note - Jackelin Hassan APRN.CNP - 08/25/2024 9:21 AM EST Associated Problem(s): Hearing loss Assessment: hearing aides * Assessment & Plan Note - Jackelin Hassan APRN.CNP - 08/25/2024 9:21 AM EST Associated Problem(s): Pulmonary arterial hypertension (HCC) Assessment: per [facility], records requested * Assessment & Plan Note - Jackelin Hassan APRN.CNP - 08/25/2024 9:20 AM EST Associated Problem(s): Nonrheumatic mitral valve regurgitation Assessment: per [facility], records requested * Assessment & Plan Note - Jackelin Hassan APRN.CNP - 08/25/2024 9:20 AM EST Associated Problem(s): Implantable cardioverter-defibrillator (ICD) in situ Assessment: following cardiology, records requested * Assessment & Plan Note - Jackelin Hassan APRN.CNP - 08/25/2024 9:13 AM EST Associated Problem(s): Hypertension Assessment: controlled on rx Last 14 BP Last 14 Encounter BP Readings: Date: BP: 08/25/2024 108/70 * Assessment & Plan Note - Jackelin Hassan APRN.CNP - 08/25/2024 9:13 AM EST Associated Problem(s): Chronic combined systolic and diastolic heart failure (HCC) Assessment: controlled on rx, following [facility], Dr. Hilliard, records requested * Assessment & Plan Note - Jackelin Hassan APRN.CNP - 08/25/2024 9:11 AM EST Associated Problem(s): BMI 31.0-31.9,adult Assessment: Body mass index is 31.57 kg/m . * Assessment & Plan Note - Jackelin Hassan APRN.CNP - 08/25/2024 9:09 AM EST Associated Problem(s): Type 2 diabetes mellitus without retinopathy (HCC) Assessment: controlled with weekly injectable, oral agents, recent labs requested from [facility] Diagnosis Pre-operative examination- Primary Preoperative examination, unspecified Type 2 diabetes mellitus without retinopathy (HCC) Type II or unspecified type diabetes mellitus without mention of complication, not stated as uncontrolled BMI 31.0-31.9,adult Body Mass Index 31.0-31.9, adult Chronic combined systolic and diastolic heart failure (HCC) Chronic combined systolic and diastolic heart failure Primary hypertension Unspecified essential hypertension Implantable cardioverter-defibrillator (ICD) in situ Nonrheumatic mitral valve regurgitation Pulmonary arterial hypertension (HCC) Other chronic pulmonary heart diseases Hearing loss, unspecified hearing loss type, unspecified laterality Chronic kidney disease, unspecified CKD stage Malignant neoplasm of left kidney (HCC) Prostate cancer (HCC) Malignant neoplasm of prostate Dyslipidemia Other and unspecified hyperlipidemia Bilateral carotid artery stenosis Occlusion and stenosis of carotid artery without mention of cerebral infarction Low platelet count (HCC) Pseudophakia- Primary Lens replaced by other means documented in this encounter [facility] note* Diagnosis Pre-operative examination- Primary Preoperative examination, unspecified Type 2 diabetes mellitus without retinopathy (HCC) Type II or unspecified type diabetes mellitus without mention of complication, not stated as uncontrolled BMI 31.0-31.9,adult Body Mass Index 31.0-31.9, adult Chronic combined systolic and diastolic heart failure (HCC) Chronic combined systolic and diastolic heart failure Primary hypertension Unspecified essential hypertension Implantable cardioverter-defibrillator (ICD) in situ Nonrheumatic mitral valve regurgitation Pulmonary arterial hypertension (HCC) Other chronic pulmonary heart diseases Hearing loss, unspecified hearing loss type, unspecified laterality Chronic kidney disease, unspecified CKD stage Malignant neoplasm of left kidney (HCC) Prostate cancer (HCC) Malignant neoplasm of prostate Dyslipidemia Other and unspecified hyperlipidemia Bilateral carotid artery stenosis Occlusion and stenosis of carotid artery without mention of cerebral infarction Low platelet count (HCC) Pseudophakia- Primary Lens replaced by other means Combined forms of age-related cataract of both eyes Other and combined forms of senile cataract documented in this encounter [facility] note* Diagnosis Pre-operative examination- Primary Preoperative examination, unspecified Type 2 diabetes mellitus without retinopathy (HCC) Type II or unspecified type diabetes mellitus without mention of complication, not stated as uncontrolled BMI 31.0-31.9,adult Body Mass Index 31.0-31.9, adult Chronic combined systolic and diastolic heart failure (HCC) Chronic combined systolic and diastolic heart failure Primary hypertension Unspecified essential hypertension Implantable cardioverter-defibrillator (ICD) in situ Nonrheumatic mitral valve regurgitation Pulmonary arterial hypertension (HCC) Other chronic pulmonary heart diseases Hearing loss, unspecified hearing loss type, unspecified laterality Chronic kidney disease, unspecified CKD stage Malignant neoplasm of left kidney (HCC) Prostate cancer (HCC) Malignant neoplasm of prostate Dyslipidemia Other and unspecified hyperlipidemia Bilateral carotid artery stenosis Occlusion and stenosis of carotid artery without mention of cerebral infarction Low platelet count (HCC) Pseudophakia- Primary Lens replaced by other means Visual distortions of shape and size Epiretinal membrane (ERM) of both eyes documented in this encounter [facility] note* Diagnosis Pre-operative examination- Primary Preoperative examination, unspecified Type 2 diabetes mellitus without retinopathy (HCC) Type II or unspecified type diabetes mellitus without mention of complication, not stated as uncontrolled BMI 31.0-31.9,adult Body Mass Index 31.0-31.9, adult Chronic combined systolic and diastolic heart failure (HCC) Chronic combined systolic and diastolic heart failure Primary hypertension Unspecified essential hypertension Implantable cardioverter-defibrillator (ICD) in situ Nonrheumatic mitral valve regurgitation Pulmonary arterial hypertension (HCC) Other chronic pulmonary heart diseases Hearing loss, unspecified hearing loss type, unspecified laterality Chronic kidney disease, unspecified CKD stage Malignant neoplasm of left kidney (HCC) Prostate cancer (HCC) Malignant neoplasm of prostate Dyslipidemia Other and unspecified hyperlipidemia Bilateral carotid artery stenosis Occlusion and stenosis of carotid artery without mention of cerebral infarction Low platelet count Pseudophakia- Primary Lens replaced by other means Squamous blepharitis of upper and lower eyelids of both eyes Combined forms of age-related cataract of both eyes Other and combined forms of senile cataract documented in this encounter [facility] note* Diagnosis Pre-operative examination- Primary Preoperative examination, unspecified Type 2 diabetes mellitus without retinopathy (HCC) Type II or unspecified type diabetes mellitus without mention of complication, not stated as uncontrolled BMI 31.0-31.9,adult Body Mass Index 31.0-31.9, adult Chronic combined systolic and diastolic heart failure (HCC) Chronic combined systolic and diastolic heart failure Primary hypertension Unspecified essential hypertension Implantable cardioverter-defibrillator (ICD) in situ Nonrheumatic mitral valve regurgitation Pulmonary arterial hypertension (HCC) Other chronic pulmonary heart diseases Hearing loss, unspecified hearing loss type, unspecified laterality Chronic kidney disease, unspecified CKD stage Malignant neoplasm of left kidney (HCC) Prostate cancer (HCC) Malignant neoplasm of prostate Dyslipidemia Other and unspecified hyperlipidemia Bilateral carotid artery stenosis Occlusion and stenosis of carotid artery without mention of cerebral infarction Low platelet count 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- Primary Ischemic optic neuropathy BMI 31.0-31.9,adult Body Mass Index 31.0-31.9, adult Primary hypertension Unspecified essential hypertension 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) Chronic combined systolic and diastolic heart failure Type 2 diabetes mellitus without retinopathy (HCC) Type II or unspecified type diabetes mellitus without mention of complication, not stated as uncontrolled Pulmonary arterial hypertension (HCC) Other chronic pulmonary heart diseases Nonrheumatic mitral valve regurgitation Bilateral carotid artery stenosis Occlusion and stenosis of carotid artery without mention of cerebral infarction Combined forms of age-related cataract of both eyes Other and combined forms of senile cataract * Assessment & Plan Note - Jose Correia APRN.CNP - 12/13/2024 11:23 AM EDT Associated Problem(s): Bilateral carotid artery stenosis Assessment: chronic, stable, no surgical interventions, following cardiology, records requested. * Assessment & Plan Note - Jose Correia APRN.CNP - 12/13/2024 11:23 AM EDT Associated Problem(s): Nonrheumatic mitral valve regurgitation Assessment: per [facility], records requested * Assessment & Plan Note - Jose Correia APRN.CNP - 12/13/2024 11:23 AM EDT Associated Problem(s): Pulmonary arterial hypertension (HCC) Assessment: per [facility], records requested. * Assessment & Plan Note - Jose Correia APRN.CNP - 12/13/2024 10:25 AM EDT Associated Problem(s): Type 2 diabetes mellitus without retinopathy (HCC) Assessment: Reports compliance to medication. Reports BS checks ranging in the 120s fasting. Encouraged lifestyle modifications. Last hemoglobin A1C around 7% per patient. * Assessment & Plan Note - Jose Correia APRN.CNP - 12/13/2024 10:23 AM EDT Associated Problem(s): Chronic combined systolic and diastolic heart failure (HCC) Assessment: Compliant on medications. Appears euvolemic, denies new or worsening cardiac symptoms. Follows Cardiology * Assessment & Plan Note - Jose Correia APRN.CNP - 12/13/2024 10:23 AM EDT Associated Problem(s): Implantable cardioverter-defibrillator (ICD) in situ Assessment: Follows Cardiology - Dr. Hilliard Denies any heart palpitations, edema, chest pain, shortness of breath, syncope, activity intolerance, or dizziness. * Assessment & Plan Note - Jose Correia APRN.CNP - 12/13/2024 10:20 AM EDT Associated Problem(s): Hypertension Assessment: Stable and compliant with medications. Follows with PCP. Last 3 Encounter BP Readings: Date: BP: 12/13/2024 128/84 09/06/2024 145/82 08/25/2024 108/70 * Assessment & Plan Note - Jose Correia APRN.CNP - 12/13/2024 10:19 AM EDT Associated Problem(s): BMI 31.0-31.9,adult Assessment: Body mass index is 31.42 kg/m . 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 [facility] Diagnosis Pre-operative examination- Primary Preoperative examination, unspecified Type 2 diabetes mellitus without retinopathy (HCC) Type II or unspecified type diabetes mellitus without mention of complication, not stated as uncontrolled BMI 31.0-31.9,adult Body Mass Index 31.0-31.9, adult Chronic combined systolic and diastolic heart failure (HCC) Chronic combined systolic and diastolic heart failure Primary hypertension Unspecified essential hypertension Implantable cardioverter-defibrillator (ICD) in situ Nonrheumatic mitral valve regurgitation Pulmonary arterial hypertension (HCC) Other chronic pulmonary heart diseases Hearing loss, unspecified hearing loss type, unspecified laterality Chronic kidney disease, unspecified CKD stage Malignant neoplasm of left kidney (HCC) Prostate cancer (HCC) Malignant neoplasm of prostate Dyslipidemia Other and unspecified hyperlipidemia Bilateral carotid artery stenosis Occlusion and stenosis of carotid artery without mention of cerebral infarction Low platelet count 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- Primary Ischemic optic neuropathy BMI 31.0-31.9,adult Body Mass Index 31.0-31.9, adult Primary hypertension Unspecified essential hypertension 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) Chronic combined systolic and diastolic heart failure Type 2 diabetes mellitus without retinopathy (HCC) Type II or unspecified type diabetes mellitus without mention of complication, not stated as uncontrolled Pulmonary arterial hypertension (HCC) Other chronic pulmonary heart diseases Nonrheumatic mitral valve regurgitation Bilateral carotid artery stenosis Occlusion and stenosis of carotid artery without mention of cerebral infarction Pseudophakia- Primary Lens replaced by other means [facility] Diagnosis Pre-operative examination- Primary Preoperative examination, unspecified Type 2 diabetes mellitus without retinopathy (HCC) Type II or unspecified type diabetes mellitus without mention of complication, not stated as uncontrolled BMI 31.0-31.9,adult Body Mass Index 31.0-31.9, adult Chronic combined systolic and diastolic heart failure (HCC) Chronic combined systolic and diastolic heart failure Primary hypertension Unspecified essential hypertension Implantable cardioverter-defibrillator (ICD) in situ Nonrheumatic mitral valve regurgitation Pulmonary arterial hypertension (HCC) Other chronic pulmonary heart diseases Hearing loss, unspecified hearing loss type, unspecified laterality Chronic kidney disease, unspecified CKD stage Malignant neoplasm of left kidney (HCC) Prostate cancer (HCC) Malignant neoplasm of prostate Dyslipidemia Other and unspecified hyperlipidemia Bilateral carotid artery stenosis Occlusion and stenosis of carotid artery without mention of cerebral infarction Low platelet count 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- Primary Ischemic optic neuropathy BMI 31.0-31.9,adult Body Mass Index 31.0-31.9, adult Primary hypertension Unspecified essential hypertension 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) Chronic combined systolic and diastolic heart failure Type 2 diabetes mellitus without retinopathy (HCC) Type II or unspecified type diabetes mellitus without mention of complication, not stated as uncontrolled Pulmonary arterial hypertension (HCC) Other chronic pulmonary heart diseases Nonrheumatic mitral valve regurgitation Bilateral carotid artery stenosis Occlusion and stenosis of carotid artery without mention of cerebral infarction Combined forms of age-related cataract of both eyes- Primary Other and combined forms of senile cataract Pseudophakia Lens replaced by other means Other optic atrophy, bilateral Type 2 diabetes mellitus without retinopathy (HCC) Type II or unspecified type diabetes mellitus without mention of complication, not stated as uncontrolled Epiretinal membrane (ERM) of both eyes [facility] Diagnosis Pre-operative examination- Primary Preoperative examination, unspecified Type 2 diabetes mellitus without retinopathy (HCC) Type II or unspecified type diabetes mellitus without mention of complication, not stated as uncontrolled BMI 31.0-31.9,adult Body Mass Index 31.0-31.9, adult Chronic combined systolic and diastolic heart failure (HCC) Chronic combined systolic and diastolic heart failure Primary hypertension Unspecified essential hypertension Implantable cardioverter-defibrillator (ICD) in situ Nonrheumatic mitral valve regurgitation Pulmonary arterial hypertension (HCC) Other chronic pulmonary heart diseases Hearing loss, unspecified hearing loss type, unspecified laterality Chronic kidney disease, unspecified CKD stage Malignant neoplasm of left kidney (HCC) Prostate cancer (HCC) Malignant neoplasm of prostate Dyslipidemia Other and unspecified hyperlipidemia Bilateral carotid artery stenosis Occlusion and stenosis of carotid artery without mention of cerebral infarction Low platelet count 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- Primary Ischemic optic neuropathy BMI 31.0-31.9,adult Body Mass Index 31.0-31.9, adult Primary hypertension Unspecified essential hypertension 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) Chronic combined systolic and diastolic heart failure Type 2 diabetes mellitus without retinopathy (HCC) Type II or unspecified type diabetes mellitus without mention of complication, not stated as uncontrolled Pulmonary arterial hypertension (HCC) Other chronic pulmonary heart diseases Nonrheumatic mitral valve regurgitation Bilateral carotid artery stenosis Occlusion and stenosis of carotid artery without mention of cerebral infarction Combined forms of age-related cataract of both eyes- Primary Other and combined forms of senile cataract Pseudophakia Lens replaced by other means Other optic atrophy, bilateral Type 2 diabetes mellitus without retinopathy (HCC) Type II or unspecified type diabetes mellitus without mention of complication, not stated as uncontrolled Epiretinal membrane (ERM) of both eyes Posterior vitreous detachment of both eyes Vitreous degeneration documented in this encounter [facility] Discharge instructions No data available for this section [facility] Progress note No data available for this section [facility] Reason for referral (narrative)No reason for referral information availableWT[facility]: Family History Unknown Family Member Name Dates Details Father Comments: at 83 from HTN , heart gave out Status:Active Mother Comments: at 60 from [place] Status:Active Sister 1 Comments:living and has dm h igh chol Status:Active Unknown Family Member Name Dates Details Father Comments: at 83 from HTN , heart gave out Status:Active Mother Comments: at 60 from [place] Status:Active Sister 1 Comments:living and has dm h igh chol Status:Active Unknown Family Member Name Dates Details Father Comments: at 83 from HTN , heart gave out Status:Active Mother Comments: at 60 from [place] Status:Active Sister 1 Comments:living and has dm h igh chol Status:Active Unknown Family Member Name Dates Details Father Comments: at 83 from HTN , heart gave out Status:Active Mother Comments: at 60 from [place] Status:Active Sister 1 Comments:living and has dm h igh chol Status:Active Unknown Family Member Name Dates Details Father Comments: at 83 from HTN , heart gave out Status:Active Mother Comments: at 60 from [place] Status:Active Sister 1 Comments:living and has dm h igh chol Status:Active Unknown Family Member Name Dates Details Father Comments: at 83 from HTN , heart gave out Status:Active Mother Comments: at 60 from [place] Status:Active Sister 1 Comments:living and has dm h igh chol Status:Active Unknown Family Member Name Dates Details Father Comments: at 83 from HTN , heart gave out Status:Active Mother Comments: at 60 from [place] Status:Active Sister 1 Comments:living and has dm h igh chol Status:Active Unknown Family Member Name Dates Details Father Comments: at 83 from HTN , heart gave out Status:Active Mother Comments: at 60 from [place] Status:Active Sister 1 Comments:living and has dm h igh chol Status:Active Unknown Family Member Name Dates Details Father Comments: at 83 from HTN , heart gave out Status:Active Mother Comments: at 60 from [place] Status:Active Sister 1 Comments:living and has dm h igh chol Status:Active Unknown Family Member Name Dates Details Father Comments: at 83 from HTN , heart gave out Status:Active Mother Comments: at 60 from [place] Status:Active Sister 1 Comments:living and has dm h igh chol Status:Active Unknown Family Member Name Dates Details Father Comments: at 83 from HTN , heart gave out Status:Active Mother Comments: at 60 from [place] Status:Active Sister 1 Comments:living and has dm h igh chol Status:Active Relationship Condition Age at Onset Recorded Date/T tessy father Hypertension Unknown Malignant melanoma Unknown Instructions Name Dates Details Diabetes mellitus type II, c ontrolled : How to access health information online Indication:Diabetes mellitus type II, controlled Diabetes mellitus type II, c ontrolled : How to access health information online - Detail Indication:Diabetes mellitus type II, controlled Diabetes mellitus type II, c ontrolled : Patient Instructions Indication:Diabetes mellitus type II, controlled [facility] : How to access health information online Indication:[facility] : How to access health information online - Detail Indication:[facility] : Patien t Instructions Indication:[facility] : Ho w to access health information online Indication:[facility] : Ho w to access health information online - Detail Indication:[facility] : Amber alston Instructions Indication:[facility] BMI 33.0-33.9,adult : How to access health information online Indication:BMI 33.0-33.9,adult BMI 33.0-33.9,adult : How to access health information online - Detail Indication:BMI 33.0-33.9,adult BMI 33.0-33.9,adult : Patien t Instructions Indication:BMI 33.0-33.9,adult Nonsmoker : How to access he alth information online Indication:Nonsmoker Nonsmoker : How to access he alth information online - Detail Indication:Nonsmoker Nonsmoker : Patient Instruct ions Indication:Nonsmoker Type 2 or unspecified type d iabetes mellitus, uncontrolled : How to access health information online Indication:Type 2 or unspecified type diabetes mellitus, uncontrolled Type 2 or unspecified type d iabetes mellitus, uncontrolled : How to access health information online - Detail Indication:Type 2 or unspecified type diabetes mellitus, uncontrolled Type 2 or unspecified type d iabetes mellitus, uncontrolled : Patient Instructions Indication:Type 2 or unspecified type diabetes mellitus, uncontrolled Essential hypertension : How to access health information online Indication:Essential hypertension Essential hypertension : How to access health information online - Detail Indication:Essential hypertension Essential hypertension : Pat ient Instructions Indication:Essential hypertension Renal insufficiency (Renamed from Renal function impairment) : How to access health information online - Detail Indication:Renal insufficiency (Renamed from Renal function impairment) Renal insufficiency (Renamed from Renal function impairment) : How to access health information online Indication:Renal insufficiency (Renamed from Renal function impairment) CA IN SITU, PROSTATE : Raje nt Instructions Indication:CA IN SITU, PROSTATE Name Dates Details Diabetes mellitus type II, c ontrolled : How to access health information online Indication:Diabetes mellitus type II, controlled Diabetes mellitus type II, c ontrolled : How to access health information online - Detail Indication:Diabetes mellitus type II, controlled Diabetes mellitus type II, c ontrolled : Patient Instructions Indication:Diabetes mellitus type II, controlled [facility] : How to access health information online Indication:[facility] : How to access health information online - Detail Indication:[facility] : Patien t Instructions Indication:[facility] : Ho w to access health information online Indication:[facility] : Ho w to access health information online - Detail Indication:[facility] : Pa tient Instructions Indication:[facility] BMI 33.0-33.9,adult : How to access health information online Indication:BMI 33.0-33.9,adult BMI 33.0-33.9,adult : How to access health information online - Detail Indication:BMI 33.0-33.9,adult BMI 33.0-33.9,adult : Patien t Instructions Indication:BMI 33.0-33.9,adult Nonsmoker : How to access he alth information online Indication:Nonsmoker Nonsmoker : How to access he alth information online - Detail Indication:Nonsmoker Nonsmoker : Patient Instruct ions Indication:Nonsmoker Type 2 or unspecified type d iabetes mellitus, uncontrolled : How to access health information online Indication:Type 2 or unspecified type diabetes mellitus, uncontrolled Type 2 or unspecified type d iabetes mellitus, uncontrolled : How to access health information online - Detail Indication:Type 2 or unspecified type diabetes mellitus, uncontrolled Type 2 or unspecified type d iabetes mellitus, uncontrolled : Patient Instructions Indication:Type 2 or unspecified type diabetes mellitus, uncontrolled Essential hypertension : How to access health information online Indication:Essential hypertension Essential hypertension : How to access health information online - Detail Indication:Essential hypertension Essential hypertension : Pat ient Instructions Indication:Essential hypertension Renal insufficiency (Renamed from Renal function impairment) : How to access health information online - Detail Indication:Renal insufficiency (Renamed from Renal function impairment) Renal insufficiency (Renamed from Renal function impairment) : How to access health information online Indication:Renal insufficiency (Renamed from Renal function impairment) CA IN SITU, PROSTATE : Sweetie nt Instructions Indication:CA IN SITU, PROSTATE Name Dates Details Diabetes mellitus type II, c ontrolled : How to access health information online Indication:Diabetes mellitus type II, controlled Diabetes mellitus type II, c ontrolled : How to access health information online - Detail Indication:Diabetes mellitus type II, controlled Diabetes mellitus type II, c ontrolled : Patient Instructions Indication:Diabetes mellitus type II, controlled [facility] : How to access health information online Indication:[facility] : How to access health information online - Detail Indication:[facility] : Emil t Instructions Indication:[facility] : Ho w to access health information online Indication:[facility] : Ho w to access health information online - Detail Indication:[facility] : Pa tient Instructions Indication:[facility] BMI 33.0-33.9,adult : How to access health information online Indication:BMI 33.0-33.9,adult BMI 33.0-33.9,adult : How to access health information online - Detail Indication:BMI 33.0-33.9,adult BMI 33.0-33.9,adult : Patien t Instructions Indication:BMI 33.0-33.9,adult Nonsmoker : How to access he alth information online Indication:Nonsmoker Nonsmoker : How to access he alth information online - Detail Indication:Nonsmoker Nonsmoker : Patient Instruct ions Indication:Nonsmoker Type 2 or unspecified type d iabetes mellitus, uncontrolled : How to access health information online Indication:Type 2 or unspecified type diabetes mellitus, uncontrolled Type 2 or unspecified type d iabetes mellitus, uncontrolled : How to access health information online - Detail Indication:Type 2 or unspecified type diabetes mellitus, uncontrolled Type 2 or unspecified type d iabetes mellitus, uncontrolled : Patient Instructions Indication:Type 2 or unspecified type diabetes mellitus, uncontrolled Essential hypertension : How to access health information online Indication:Essential hypertension Essential hypertension : How to access health information online - Detail Indication:Essential hypertension Essential hypertension : Pat ient Instructions Indication:Essential hypertension Renal insufficiency (Renamed from Renal function impairment) : How to access health information online - Detail Indication:Renal insufficiency (Renamed from Renal function impairment) Renal insufficiency (Renamed from Renal function impairment) : How to access health information online Indication:Renal insufficiency (Renamed from Renal function impairment) CA IN SITU, PROSTATE : Patie nt Instructions Indication:CA IN SITU, PROSTATE Name Dates Details Diabetes mellitus type II, c ontrolled : How to access health information online Indication:Diabetes mellitus type II, controlled Diabetes mellitus type II, c ontrolled : How to access health information online - Detail Indication:Diabetes mellitus type II, controlled Diabetes mellitus type II, c ontrolled : Patient Instructions Indication:Diabetes mellitus type II, controlled [facility] : How to access health information online Indication:[facility] : How to access health information online - Detail Indication:[facility] : Patien t Instructions Indication:[facility] : Ho w to access health information online Indication:[facility] : Ho w to access health information online - Detail Indication:[facility] : Pa tient Instructions Indication:[facility] BMI 33.0-33.9,adult : How to access health information online Indication:BMI 33.0-33.9,adult BMI 33.0-33.9,adult : How to access health information online - Detail Indication:BMI 33.0-33.9,adult BMI 33.0-33.9,adult : Patien t Instructions Indication:BMI 33.0-33.9,adult Nonsmoker : How to access he alth information online Indication:Nonsmoker Nonsmoker : How to access he alth information online - Detail Indication:Nonsmoker Nonsmoker : Patient Instruct ions Indication:Nonsmoker Type 2 or unspecified type d iabetes mellitus, uncontrolled : How to access health information online Indication:Type 2 or unspecified type diabetes mellitus, uncontrolled Type 2 or unspecified type d iabetes mellitus, uncontrolled : How to access health information online - Detail Indication:Type 2 or unspecified type diabetes mellitus, uncontrolled Type 2 or unspecified type d iabetes mellitus, uncontrolled : Patient Instructions Indication:Type 2 or unspecified type diabetes mellitus, uncontrolled Essential hypertension : How to access health information online Indication:Essential hypertension Essential hypertension : How to access health information online - Detail Indication:Essential hypertension Essential hypertension : Pat ient Instructions Indication:Essential hypertension Renal insufficiency (Renamed from Renal function impairment) : How to access health information online - Detail Indication:Renal insufficiency (Renamed from Renal function impairment) Renal insufficiency (Renamed from Renal function impairment) : How to access health information online Indication:Renal insufficiency (Renamed from Renal function impairment) CA IN SITU, PROSTATE : Sweetie nt Instructions Indication:CA IN SITU, PROSTATE Name Dates Details Diabetes mellitus type II, c ontrolled : How to access health information online Indication:Diabetes mellitus type II, controlled Diabetes mellitus type II, c ontrolled : How to access health information online - Detail Indication:Diabetes mellitus type II, controlled Diabetes mellitus type II, c ontrolled : Patient Instructions Indication:Diabetes mellitus type II, controlled [facility] : How to access health information online Indication:[facility] : How to access health information online - Detail Indication:[facility] EX[facility] : Patien t Instructions Indication:[facility] : Ho w to access health information online Indication:[facility] : Ho w to access health information online - Detail Indication:[facility] : Pa tient Instructions Indication:[facility] BMI 33.0-33.9,adult : How to access health information online Indication:BMI 33.0-33.9,adult BMI 33.0-33.9,adult : How to access health information online - Detail Indication:BMI 33.0-33.9,adult BMI 33.0-33.9,adult : Patien t Instructions Indication:BMI 33.0-33.9,adult Nonsmoker : How to access he alth information online Indication:Nonsmoker Nonsmoker : How to access he alth information online - Detail Indication:Nonsmoker Nonsmoker : Patient Instruct ions Indication:Nonsmoker Type 2 or unspecified type d iabetes mellitus, uncontrolled : How to access health information online Indication:Type 2 or unspecified type diabetes mellitus, uncontrolled Type 2 or unspecified type d iabetes mellitus, uncontrolled : How to access health information online - Detail Indication:Type 2 or unspecified type diabetes mellitus, uncontrolled Type 2 or unspecified type d iabetes mellitus, uncontrolled : Patient Instructions Indication:Type 2 or unspecified type diabetes mellitus, uncontrolled Essential hypertension : How to access health information online Indication:Essential hypertension Essential hypertension : How to access health information online - Detail Indication:Essential hypertension Essential hypertension : Pat ient Instructions Indication:Essential hypertension Renal insufficiency (Renamed from Renal function impairment) : How to access health information online - Detail Indication:Renal insufficiency (Renamed from Renal function impairment) Renal insufficiency (Renamed from Renal function impairment) : How to access health information online Indication:Renal insufficiency (Renamed from Renal function impairment) CA IN SITU, PROSTATE : Sweetie nt Instructions Indication:CA IN SITU, PROSTATE Name Dates Details Diabetes mellitus type II, c ontrolled : How to access health information online Indication:Diabetes mellitus type II, controlled Diabetes mellitus type II, c ontrolled : How to access health information online - Detail Indication:Diabetes mellitus type II, controlled Diabetes mellitus type II, c ontrolled : Patient Instructions Indication:Diabetes mellitus type II, controlled [facility] : How to access health information online Indication:[facility] : How to access health information online - Detail Indication:[facility] : Emil t Instructions Indication:[facility] : Ho w to access health information online Indication:[facility] : Ho w to access health information online - Detail Indication:[facility] : Pa tient Instructions Indication:[facility] BMI 33.0-33.9,adult : How to access health information online Indication:BMI 33.0-33.9,adult BMI 33.0-33.9,adult : How to access health information online - Detail Indication:BMI 33.0-33.9,adult BMI 33.0-33.9,adult : Patien t Instructions Indication:BMI 33.0-33.9,adult Nonsmoker : How to access he alth information online Indication:Nonsmoker Nonsmoker : How to access he alth information online - Detail Indication:Nonsmoker Nonsmoker : Patient Instruct ions Indication:Nonsmoker Type 2 or unspecified type d iabetes mellitus, uncontrolled : How to access health information online Indication:Type 2 or unspecified type diabetes mellitus, uncontrolled Type 2 or unspecified type d iabetes mellitus, uncontrolled : How to access health information online - Detail Indication:Type 2 or unspecified type diabetes mellitus, uncontrolled Type 2 or unspecified type d iabetes mellitus, uncontrolled : Patient Instructions Indication:Type 2 or unspecified type diabetes mellitus, uncontrolled Essential hypertension : How to access health information online Indication:Essential hypertension Essential hypertension : How to access health information online - Detail Indication:Essential hypertension Essential hypertension : Pat ient Instructions Indication:Essential hypertension Renal insufficiency (Renamed from Renal function impairment) : How to access health information online - Detail Indication:Renal insufficiency (Renamed from Renal function impairment) Renal insufficiency (Renamed from Renal function impairment) : How to access health information online Indication:Renal insufficiency (Renamed from Renal function impairment) CA IN SITU, PROSTATE : Patie nt Instructions Indication:CA IN SITU, PROSTATE Name Dates Details Diabetes mellitus type II, c ontrolled : How to access health information online Indication:Diabetes mellitus type II, controlled Diabetes mellitus type II, c ontrolled : How to access health information online - Detail Indication:Diabetes mellitus type II, controlled Diabetes mellitus type II, c ontrolled : Patient Instructions Indication:Diabetes mellitus type II, controlled [facility] : How to access health information online Indication:[facility] : How to access health information online - Detail Indication:[facility] EX[facility] : Patien t Instructions Indication:[facility] EXAM [facility] : Ho w to access health information online Indication:[facility] : Ho w to access health information online - Detail Indication:[facility] : Pa gamaliel Instructions Indication:[facility] BMI 33.0-33.9,adult : How to access health information online Indication:BMI 33.0-33.9,adult BMI 33.0-33.9,adult : How to access health information online - Detail Indication:BMI 33.0-33.9,adult BMI 33.0-33.9,adult : Patien t Instructions Indication:BMI 33.0-33.9,adult Nonsmoker : How to access he alth information online Indication:Nonsmoker Nonsmoker : How to access he alth information online - Detail Indication:Nonsmoker Nonsmoker : Patient Instruct ions Indication:Nonsmoker Type 2 or unspecified type d iabetes mellitus, uncontrolled : How to access health information online Indication:Type 2 or unspecified type diabetes mellitus, uncontrolled Type 2 or unspecified type d iabetes mellitus, uncontrolled : How to access health information online - Detail Indication:Type 2 or unspecified type diabetes mellitus, uncontrolled Type 2 or unspecified type d iabetes mellitus, uncontrolled : Patient Instructions Indication:Type 2 or unspecified type diabetes mellitus, uncontrolled Essential hypertension : How to access health information online Indication:Essential hypertension Essential hypertension : How to access health information online - Detail Indication:Essential hypertension Essential hypertension : Pat ient Instructions Indication:Essential hypertension Renal insufficiency (Renamed from Renal function impairment) : How to access health information online - Detail Indication:Renal insufficiency (Renamed from Renal function impairment) Renal insufficiency (Renamed from Renal function impairment) : How to access health information online Indication:Renal insufficiency (Renamed from Renal function impairment) CA IN SITU, PROSTATE : Patie nt Instructions Indication:CA IN SITU, PROSTATE Name Dates Details How to access health informa tion online Indication:Diabetes mellitus type II, controlled Start:16-Nov-2018 Instruction Type:Patient Education How to access health informa tion online - Detail Indication:Diabetes mellitus type II, controlled Start:16-Nov-2018 Instruction Type:Patient Education Patient Instructions Indication:Diabetes mellitus type II, controlled Start:16-Nov-2018 Instruction Type:Provider Instructions for Treatment How to access health informa tion online Indication:Diabetes mellitus type II, controlled Start:24-Aug-2018 Instruction Type:Patient Education How to access health informa tion online - Detail Indication:Diabetes mellitus type II, controlled Start:24-Aug-2018 Instruction Type:Patient Education Patient Instructions Indication:Diabetes mellitus type II, controlled Start:24-Aug-2018 Instruction Type:Provider Instructions for Treatment How to access health informa tion online Indication:Diabetes mellitus type II, controlled Start:09-Feb-2018 Instruction Type:Patient Education How to access health informa tion online - Detail Indication:Diabetes mellitus type II, controlled Start:09-Feb-2018 Instruction Type:Patient Education Patient Instructions Indication:Diabetes mellitus type II, controlled Start:09-Feb-2018 Instruction Type:Provider Instructions for Treatment How to access health informa tion online Indication:[facility] Start:05-Sep-2017 Instruction Type:Patient Education How to access health informa tion online - Detail Indication:[facility] Start:05-Sep-2017 Instruction Type:Patient Education Patient Instructions Indication:[facility] Start:05-Sep-2017 Instruction Type:Provider Instructions for Treatment How to access health informa tion online Indication:Diabetes mellitus type II, controlled Start:16-May-2017 Instruction Type:Patient Education How to access health informa tion online - Detail Indication:Diabetes mellitus type II, controlled Start:16-May-2017 Instruction Type:Patient Education Patient Instructions Indication:Diabetes mellitus type II, controlled Start:16-May-2017 Instruction Type:Provider Instructions for Treatment How to access health informa tion online Indication:Diabetes mellitus type II, controlled Start:11-Feb-2017 Instruction Type:Patient Education How to access health informa tion online - Detail Indication:Diabetes mellitus type II, controlled Start:11-Feb-2017 Instruction Type:Patient Education Patient Instructions Indication:Diabetes mellitus type II, controlled Start:11-Feb-2017 Instruction Type:Provider Instructions for Treatment How to access health informa tion online Indication:[facility] Start:01-Oct-2016 Instruction Type:Patient Education How to access health informa tion online - Detail Indication:[facility] Start:01-Oct-2016 Instruction Type:Patient Education Patient Instructions Indication:[facility] Start:01-Oct-2016 Instruction Type:Provider Instructions for Treatment How to access health informa tion online Indication:BMI 33.0-33.9,adult Start:31-Jul-2016 Instruction Type:Patient Education How to access health informa tion online - Detail Indication:BMI 33.0-33.9,adult Start:31-Jul-2016 Instruction Type:Patient Education Patient Instructions Indication:BMI 33.0-33.9,adult Start:31-Jul-2016 Instruction Type:Provider Instructions for Treatment How to access health informa tion online Indication:Nonsmoker Start:18-Jun-2016 Instruction Type:Patient Education How to access health informa tion online - Detail Indication:Nonsmoker Start:18-Jun-2016 Instruction Type:Patient Education Patient Instructions Indication:Nonsmoker Start:18-Jun-2016 Instruction Type:Provider Instructions for Treatment How to access health informa tion online Indication:Diabetes mellitus type II, controlled Start:14-Aug-2015 Instruction Type:Patient Education How to access health informa tion online - Detail Indication:Diabetes mellitus type II, controlled Start:14-Aug-2015 Instruction Type:Patient Education Patient Instructions Indication:Diabetes mellitus type II, controlled Start:14-Aug-2015 Instruction Type:Provider Instructions for Treatment How to access health informa tion online Indication:Type 2 or unspecified type diabetes mellitus, uncontrolled Start:10-May-2015 Instruction Type:Patient Education How to access health informa tion online - Detail Indication:Type 2 or unspecified type diabetes mellitus, uncontrolled Start:10-May-2015 Instruction Type:Patient Education Patient Instructions Indication:Type 2 or unspecified type diabetes mellitus, uncontrolled Start:10-May-2015 Instruction Type:Provider Instructions for Treatment How to access health informa tion online Indication:Type 2 or unspecified type diabetes mellitus, uncontrolled Start:23-Dec-2014 Instruction Type:Patient Education How to access health informa tion online - Detail Indication:Type 2 or unspecified type diabetes mellitus, uncontrolled Start:23-Dec-2014 Instruction Type:Patient Education Patient Instructions Indication:Type 2 or unspecified type diabetes mellitus, uncontrolled Start:23-Dec-2014 Instruction Type:Provider Instructions for Treatment How to access health informa tion online Indication:Essential hypertension Start:15-Aug-2014 Instruction Type:Patient Education How to access health informa tion online - Detail Indication:Essential hypertension Start:15-Aug-2014 Instruction Type:Patient Education Patient Instructions Indication:Essential hypertension Start:15-Aug-2014 Instruction Type:Provider Instructions for Treatment How to access health informa tion online - Detail Indication:Renal insufficiency (Renamed from Renal function impairment) Start:08-Feb-2014 Instruction Type:Patient Education How to access health informa tion online Indication:Renal insufficiency (Renamed from Renal function impairment) Start:08-Feb-2014 Instruction Type:Patient Education Patient Instructions Indication:Type 2 or unspecified type diabetes mellitus, uncontrolled Start:08-Feb-2014 Instruction Type:Provider Instructions for Treatment Patient Instructions Indication:Type 2 or unspecified type diabetes mellitus, uncontrolled Start:20-Aug-2013 Instruction Type:Provider Instructions for Treatment Patient Instructions Indication:Type 2 or unspecified type diabetes mellitus, uncontrolled Start:10-May-2013 Instruction Type:Provider Instructions for Treatment Patient Instructions Indication:Type 2 or unspecified type diabetes mellitus, uncontrolled Start:04-Jan-2013 Instruction Type:Provider Instructions for Treatment Patient Instructions Indication:Type 2 or unspecified type diabetes mellitus, uncontrolled Start:01-Sep-2012 Instruction Type:Provider Instructions for Treatment Patient Instructions Indication:CA IN SITU, PROSTATE Start:26-Jun-2012 Instruction Type:Provider Instructions for Treatment Patient Instructions Indication:Type 2 or unspecified type diabetes mellitus, uncontrolled Start:28-Apr-2012 Instruction Type:Provider Instructions for Treatment Name Dates Details How to access health informa tion online Indication:Diabetes mellitus type II, controlled Start:16-Nov-2018 Instruction Type:Patient Education How to access health informa tion online - Detail Indication:Diabetes mellitus type II, controlled Start:16-Nov-2018 Instruction Type:Patient Education Patient Instructions Indication:Diabetes mellitus type II, controlled Start:16-Nov-2018 Instruction Type:Provider Instructions for Treatment How to access health informa tion online Indication:Diabetes mellitus type II, controlled Start:24-Aug-2018 Instruction Type:Patient Education How to access health informa tion online - Detail Indication:Diabetes mellitus type II, controlled Start:24-Aug-2018 Instruction Type:Patient Education Patient Instructions Indication:Diabetes mellitus type II, controlled Start:24-Aug-2018 Instruction Type:Provider Instructions for Treatment How to access health informa tion online Indication:Diabetes mellitus type II, controlled Start:09-Feb-2018 Instruction Type:Patient Education How to access health informa tion online - Detail Indication:Diabetes mellitus type II, controlled Start:09-Feb-2018 Instruction Type:Patient Education Patient Instructions Indication:Diabetes mellitus type II, controlled Start:09-Feb-2018 Instruction Type:Provider Instructions for Treatment How to access health informa tion online Indication:[facility] Start:05-Sep-2017 Instruction Type:Patient Education How to access health informa tion online - Detail Indication:[facility] Start:05-Sep-2017 Instruction Type:Patient Education Patient Instructions Indication:[facility] Start:05-Sep-2017 Instruction Type:Provider Instructions for Treatment How to access health informa tion online Indication:Diabetes mellitus type II, controlled Start:16-May-2017 Instruction Type:Patient Education How to access health informa tion online - Detail Indication:Diabetes mellitus type II, controlled Start:16-May-2017 Instruction Type:Patient Education Patient Instructions Indication:Diabetes mellitus type II, controlled Start:16-May-2017 Instruction Type:Provider Instructions for Treatment How to access health informa tion online Indication:Diabetes mellitus type II, controlled Start:11-Feb-2017 Instruction Type:Patient Education How to access health informa tion online - Detail Indication:Diabetes mellitus type II, controlled Start:11-Feb-2017 Instruction Type:Patient Education Patient Instructions Indication:Diabetes mellitus type II, controlled Start:11-Feb-2017 Instruction Type:Provider Instructions for Treatment How to access health informa tion online Indication:[facility] Start:01-Oct-2016 Instruction Type:Patient Education How to access health informa tion online - Detail Indication:[facility] Start:01-Oct-2016 Instruction Type:Patient Education Patient Instructions Indication:[facility] Start:01-Oct-2016 Instruction Type:Provider Instructions for Treatment How to access health informa tion online Indication:BMI 33.0-33.9,adult Start:31-Jul-2016 Instruction Type:Patient Education How to access health informa tion online - Detail Indication:BMI 33.0-33.9,adult Start:31-Jul-2016 Instruction Type:Patient Education Patient Instructions Indication:BMI 33.0-33.9,adult Start:31-Jul-2016 Instruction Type:Provider Instructions for Treatment How to access health informa tion online Indication:Nonsmoker Start:18-Jun-2016 Instruction Type:Patient Education How to access health informa tion online - Detail Indication:Nonsmoker Start:18-Jun-2016 Instruction Type:Patient Education Patient Instructions Indication:Nonsmoker Start:18-Jun-2016 Instruction Type:Provider Instructions for Treatment How to access health informa tion online Indication:Diabetes mellitus type II, controlled Start:14-Aug-2015 Instruction Type:Patient Education How to access health informa tion online - Detail Indication:Diabetes mellitus type II, controlled Start:14-Aug-2015 Instruction Type:Patient Education Patient Instructions Indication:Diabetes mellitus type II, controlled Start:14-Aug-2015 Instruction Type:Provider Instructions for Treatment How to access health informa tion online Indication:Type 2 or unspecified type diabetes mellitus, uncontrolled Start:10-May-2015 Instruction Type:Patient Education How to access health informa tion online - Detail Indication:Type 2 or unspecified type diabetes mellitus, uncontrolled Start:10-May-2015 Instruction Type:Patient Education Patient Instructions Indication:Type 2 or unspecified type diabetes mellitus, uncontrolled Start:10-May-2015 Instruction Type:Provider Instructions for Treatment How to access health informa tion online Indication:Type 2 or unspecified type diabetes mellitus, uncontrolled Start:23-Dec-2014 Instruction Type:Patient Education How to access health informa tion online - Detail Indication:Type 2 or unspecified type diabetes mellitus, uncontrolled Start:23-Dec-2014 Instruction Type:Patient Education Patient Instructions Indication:Type 2 or unspecified type diabetes mellitus, uncontrolled Start:23-Dec-2014 Instruction Type:Provider Instructions for Treatment How to access health informa tion online Indication:Essential hypertension Start:15-Aug-2014 Instruction Type:Patient Education How to access health informa tion online - Detail Indication:Essential hypertension Start:15-Aug-2014 Instruction Type:Patient Education Patient Instructions Indication:Essential hypertension Start:15-Aug-2014 Instruction Type:Provider Instructions for Treatment How to access health informa tion online - Detail Indication:Renal insufficiency (Renamed from Renal function impairment) Start:08-Feb-2014 Instruction Type:Patient Education How to access health informa tion online Indication:Renal insufficiency (Renamed from Renal function impairment) Start:08-Feb-2014 Instruction Type:Patient Education Patient Instructions Indication:Type 2 or unspecified type diabetes mellitus, uncontrolled Start:08-Feb-2014 Instruction Type:Provider Instructions for Treatment Patient Instructions Indication:Type 2 or unspecified type diabetes mellitus, uncontrolled Start:20-Aug-2013 Instruction Type:Provider Instructions for Treatment Patient Instructions Indication:Type 2 or unspecified type diabetes mellitus, uncontrolled Start:10-May-2013 Instruction Type:Provider Instructions for Treatment Patient Instructions Indication:Type 2 or unspecified type diabetes mellitus, uncontrolled Start:04-Jan-2013 Instruction Type:Provider Instructions for Treatment Patient Instructions Indication:Type 2 or unspecified type diabetes mellitus, uncontrolled Start:01-Sep-2012 Instruction Type:Provider Instructions for Treatment Patient Instructions Indication:CA IN SITU, PROSTATE Start:26-Jun-2012 Instruction Type:Provider Instructions for Treatment Patient Instructions Indication:Type 2 or unspecified type diabetes mellitus, uncontrolled Start:28-Apr-2012 Instruction Type:Provider Instructions for Treatment Name Dates Details Diabetes mellitus type II, c ontrolled : How to access health information online Indication:Diabetes mellitus type II, controlled Diabetes mellitus type II, c ontrolled : How to access health information online - Detail Indication:Diabetes mellitus type II, controlled Diabetes mellitus type II, c ontrolled : Patient Instructions Indication:Diabetes mellitus type II, controlled [facility] : How to access health information online Indication:[facility] : How to access health information online - Detail Indication:[facility] : Patien t Instructions Indication:[facility] : Ho w to access health information online Indication:[facility] : Ho w to access health information online - Detail Indication:[facility] : Pa tient Instructions Indication:[facility] BMI 33.0-33.9,adult : How to access health information online Indication:BMI 33.0-33.9,adult BMI 33.0-33.9,adult : How to access health information online - Detail Indication:BMI 33.0-33.9,adult BMI 33.0-33.9,adult : Patien t Instructions Indication:BMI 33.0-33.9,adult Nonsmoker : How to access he alth information online Indication:Nonsmoker Nonsmoker : How to access he alth information online - Detail Indication:Nonsmoker Nonsmoker : Patient Instruct ions Indication:Nonsmoker Type 2 or unspecified type d iabetes mellitus, uncontrolled : How to access health information online Indication:Type 2 or unspecified type diabetes mellitus, uncontrolled Type 2 or unspecified type d iabetes mellitus, uncontrolled : How to access health information online - Detail Indication:Type 2 or unspecified type diabetes mellitus, uncontrolled Type 2 or unspecified type d iabetes mellitus, uncontrolled : Patient Instructions Indication:Type 2 or unspecified type diabetes mellitus, uncontrolled Essential hypertension : How to access health information online Indication:Essential hypertension Essential hypertension : How to access health information online - Detail Indication:Essential hypertension Essential hypertension : Pat ient Instructions Indication:Essential hypertension Renal insufficiency (Renamed from Renal function impairment) : How to access health information online - Detail Indication:Renal insufficiency (Renamed from Renal function impairment) Renal insufficiency (Renamed from Renal function impairment) : How to access health information online Indication:Renal insufficiency (Renamed from Renal function impairment) CA IN SITU, PROSTATE : Patie nt Instructions Indication:CA IN SITU, PROSTATE Name Dates Details Diabetes mellitus type II, c ontrolled : How to access health information online Indication:Diabetes mellitus type II, controlled Diabetes mellitus type II, c ontrolled : How to access health information online - Detail Indication:Diabetes mellitus type II, controlled Diabetes mellitus type II, c ontrolled : Patient Instructions Indication:Diabetes mellitus type II, controlled [facility] : How to access health information online Indication:[facility] : How to access health information online - Detail Indication:[facility] : Patien t Instructions Indication:[facility] : Ho w to access health information online Indication:[facility] : Ho w to access health information online - Detail Indication:[facility] : Pa tient Instructions Indication:[facility] BMI 33.0-33.9,adult : How to access health information online Indication:BMI 33.0-33.9,adult BMI 33.0-33.9,adult : How to access health information online - Detail Indication:BMI 33.0-33.9,adult BMI 33.0-33.9,adult : Patien t Instructions Indication:BMI 33.0-33.9,adult Nonsmoker : How to access he alth information online Indication:Nonsmoker Nonsmoker : How to access he alth information online - Detail Indication:Nonsmoker Nonsmoker : Patient Instruct ions Indication:Nonsmoker Type 2 or unspecified type d iabetes mellitus, uncontrolled : How to access health information online Indication:Type 2 or unspecified type diabetes mellitus, uncontrolled Type 2 or unspecified type d iabetes mellitus, uncontrolled : How to access health information online - Detail Indication:Type 2 or unspecified type diabetes mellitus, uncontrolled Type 2 or unspecified type d iabetes mellitus, uncontrolled : Patient Instructions Indication:Type 2 or unspecified type diabetes mellitus, uncontrolled Essential hypertension : How to access health information online Indication:Essential hypertension Essential hypertension : How to access health information online - Detail Indication:Essential hypertension Essential hypertension : Pat ient Instructions Indication:Essential hypertension Renal insufficiency (Renamed from Renal function impairment) : How to access health information online - Detail Indication:Renal insufficiency (Renamed from Renal function impairment) Renal insufficiency (Renamed from Renal function impairment) : How to access health information online Indication:Renal insufficiency (Renamed from Renal function impairment) CA IN SITU, PROSTATE : Patie nt Instructions Indication:CA IN SITU, PROSTATE Summary Purpose Advance Directives Advance Directive Response Recorded Date/ Time Advance Directives No August 12:14pm Living Will No August 24 12:14pm Power of [employer] No August 24, 2020 12:14pm Advance Directive Response Recorded Date/ Time Advance Directives No August 11:14am Living Will No August 24 11:14am Power of [employer] No August 24, 2020 11:14am Advance Directive Response Recorded Date/ Time Living Will No August 24 12:14pm Do you have a [facility] Power of [employer]? No August 24, 2020 12:14pm Advance Directives No August 12:14pm Advance Directive Response Recorded Date/ Time Advance Directives No August 12:14pm Chief Complaint and Reason for Visit Chief Complaint 3 mos remote ICD f/u remote ICD f/u 3 M FU Reason for Visit Chronic combined sys tolic and diastolic CHF (congestive heart failure) Dilated cardiomyopathy Implantable cardioverter-defibrillator (ICD) in situ Dilated cardiomyopathy Essential (primary) hypertension Implantable cardioverter-defibrillator (ICD) in situ Chronic kidney disease (CKD) Essential (primary) hypertension Type 2 diabetes mellitus Chief Complaint 3 mos remote ICD f/u remote ICD f/u 3 M FU REMOTE CHECK 6 M FU MALIGNANT NEOPLASM OF PROSTATE Reason for Visit Chronic combined sys tolic and diastolic CHF (congestive heart failure) Dilated cardiomyopathy Implantable cardioverter-defibrillator (ICD) in situ Dilated cardiomyopathy Essential (primary) hypertension Implantable cardioverter-defibrillator (ICD) in situ Chronic kidney disease (CKD) Essential (primary) hypertension Type 2 diabetes mellitus Chronic combined systolic and diastolic CHF (congestive heart failure) Dilated cardiomyopathy Implantable cardioverter-defibrillator (ICD) in situ Dilated cardiomyopathy Essential (primary) hypertension Implantable cardioverter-defibrillator (ICD) in situ Chief Complaint REMOTE CHECK 6 M FU MALIGNANT NEOPLASM OF PROSTATE 3 M FU 1 M FU Reason for Visit Chronic combined sys tolic and diastolic CHF (congestive heart failure) Dilated cardiomyopathy Implantable cardioverter-defibrillator (ICD) in situ Dilated cardiomyopathy Essential (primary) hypertension Implantable cardioverter-defibrillator (ICD) 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) Essential (primary) hypertension Prostate cancer Type 2 diabetes mellitus Chronic combined systolic and diastolic CHF (congestive heart failure) Chronic kidney disease (CKD) Type 2 diabetes mellitus Chief Complaint MALIGNANT NEOPLASM O F PROSTATE 3 M FU 1 M FU REMOTE CHECK 3 mos remote ICD f/u 2 M FU Reason for Visit Chronic combined sys tolic and diastolic CHF (congestive heart failure) Essential (primary) hypertension Prostate cancer Type 2 diabetes mellitus Chronic combined systolic and diastolic CHF (congestive heart failure) Chronic kidney disease (CKD) Type 2 diabetes mellitus Chronic combined systolic and diastolic CHF (congestive heart failure) Dilated cardiomyopathy Implantable cardioverter-defibrillator (ICD) 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) Dilated cardiomyopathy Implantable cardioverter-defibrillator (ICD) in situ Chronic kidney disease (CKD) Essential (primary) hypertension Type 2 diabetes mellitus Chief Complaint REMOTE CHECK 3 mos remote ICD f/u 2 M FU Reason for Visit Chronic combined sys tolic and diastolic CHF (congestive heart failure) Dilated cardiomyopathy Implantable cardioverter-defibrillator (ICD) 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) Dilated cardiomyopathy Implantable cardioverter-defibrillator (ICD) in situ Chronic kidney disease (CKD) Essential (primary) hypertension Type 2 diabetes mellitus Chief Complaint REMOTE CHECK 3 mos remote ICD f/u 2 M FU 6 M FU REMOTE CHECK CHF, SEE HOW EF HAS CHANGED W/MEDS & TIME Amb Documentation 3 M FU Reason for Visit Chronic combined sys tolic and diastolic CHF (congestive heart failure) Dilated cardiomyopathy Implantable cardioverter-defibrillator (ICD) 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) Dilated cardiomyopathy Implantable cardioverter-defibrillator (ICD) in situ Chronic kidney disease (CKD) Essential (primary) hypertension Type 2 diabetes mellitus Dilated cardiomyopathy Essential (primary) hypertension Hyperlipidemia Implantable cardioverter-defibrillator (ICD) 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) Dilated cardiomyopathy Implantable cardioverter-defibrillator (ICD) 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) Essential (primary) hypertension Hyperlipidemia Type 2 diabetes mellitus Chief Complaint 3 mos remote ICD f/u 2 M FU 6 M FU REMOTE CHECK CHF, SEE HOW EF HAS CHANGED W/MEDS & TIME Amb Documentation 3 M FU Reason for Visit Chronic combined sys tolic and diastolic CHF (congestive heart failure) Dilated cardiomyopathy Implantable cardioverter-defibrillator (ICD) in situ Chronic kidney disease (CKD) Essential (primary) hypertension Type 2 diabetes mellitus Dilated cardiomyopathy Essential (primary) hypertension Hyperlipidemia Implantable cardioverter-defibrillator (ICD) 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) Dilated cardiomyopathy Implantable cardioverter-defibrillator (ICD) 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) Essential (primary) hypertension Hyperlipidemia Type 2 diabetes mellitus Chief Complaint 3 mos remote ICD f/u 2 M FU 6 M FU REMOTE CHECK CHF, SEE HOW EF HAS CHANGED W/MEDS & TIME Amb Documentation 3 M FU MALIGANNT NEOPLASM OF PROSTATE Reason for Visit Chronic combined sys tolic and diastolic CHF (congestive heart failure) Dilated cardiomyopathy Implantable cardioverter-defibrillator (ICD) in situ Chronic kidney disease (CKD) Essential (primary) hypertension Type 2 diabetes mellitus Dilated cardiomyopathy Essential (primary) hypertension Hyperlipidemia Implantable cardioverter-defibrillator (ICD) 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) Dilated cardiomyopathy Implantable cardioverter-defibrillator (ICD) 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) Essential (primary) hypertension Hyperlipidemia Type 2 diabetes mellitus Chief Complaint 3 mos remote ICD f/u 3 M FU Reason for Visit Chronic combined sys tolic and diastolic CHF (congestive heart failure) Dilated cardiomyopathy Implantable cardioverter-defibrillator (ICD) in situ Chronic kidney disease (CKD) Essential (primary) hypertension Type 2 diabetes mellitus Chief Complaint 3 M FU 3 mos remote ICD f/u Amb Documentation 1 Y FU Reason for Visit Essential (primary) hypertension Hyperlipidemia Prostate cancer Type 2 diabetes mellitus Chronic combined systolic and diastolic CHF (congestive heart failure) Dilated cardiomyopathy Implantable cardioverter-defibrillator (ICD) in situ Dilated cardiomyopathy Essential (primary) hypertension Hyperlipidemia Implantable cardioverter-defibrillator (ICD) in situ Chief Complaint 3 M FU 3 mos remote ICD f/u Amb Documentation 1 Y FU 3 m fu Reason for Visit Essential (primary) hypertension Hyperlipidemia Prostate cancer Type 2 diabetes mellitus Chronic combined systolic and diastolic CHF (congestive heart failure) Dilated cardiomyopathy Implantable cardioverter-defibrillator (ICD) in situ Dilated cardiomyopathy Essential (primary) hypertension Hyperlipidemia Implantable cardioverter-defibrillator (ICD) in situ Screening for thyroid disorder Chronic fatigue Essential (primary) hypertension Prostate cancer Type 2 diabetes mellitus Chief Complaint 3 m fu Pacer Check Remote Pacer Check Remote Pacer Check Remote Reason for Visit Screening for thyroi d disorder Chronic fatigue Essential (primary) hypertension Prostate cancer Type 2 diabetes mellitus Chief Complaint 3 m fu Pacer Check Remote Pacer Check Remote Pacer Check Remote 3 M FU Pacer Check Remote Pacer Check Remote 6 M FU Reason for Visit Screening for thyroi d disorder Chronic fatigue Essential (primary) hypertension Prostate cancer Type 2 diabetes mellitus Chronic combined systolic and diastolic CHF (congestive heart failure) Chronic kidney disease (CKD) Essential (primary) hypertension Type 2 diabetes mellitus Dilated cardiomyopathy Essential (primary) hypertension Hyperlipidemia Implantable cardioverter-defibrillator (ICD) in situ Chief Complaint Admit Date Pacer Check Remote June 15, 2024 1 2:25am Pacer Check Remote July 06, 2024 4:57am 3 M FU July 15, 2024 3: 11pm Pacer Check Remote July 20, 2024 1: 41am Pacer Check Remote July 27, 2024 1 :54am Pacer Check Remote August 03, 2024 5 :48am Pacer Check Remote August 10, 2024 2 :18am MED REVIEW/SEE NOTES August 23, 2024 8:43am Pacer Check Remote August 30, 2024 1:41am Reason for Visit Admit Date Diarrhea July 15, 2024 3: 11pm Chronic kidney disease (CKD) July 3:11pm Essential (primary) hypertension July 15, 2024 3:11pm Hyperlipidemia July 15, 2024 3: 11pm Type 2 diabetes mellitus July 15 3:11pm Chronic combined systolic an d diastolic CHF (congestive heart failure) August 23, 2024 8:43am Essential (primary) hypertension 2024 8:43am Implantable cardioverter-defibrillator ( ICD) in situ August 23, 2024 8:43am Chief Complaint Admit Date Pacer Check Remote July 06, 2024 4:57am 3 M FU July 15, 2024 3: 11pm Pacer Check Remote July 20, 2024 1: 41am Pacer Check Remote July 27, 2024 1 :54am Pacer Check Remote August 03, 2024 5 :48am Pacer Check Remote August 10, 2024 2 :18am MED REVIEW/SEE NOTES August 23, 2024 8:43am Pacer Check Remote August 30, 2024 1:41am 3 M FU October 13, 2024 9:23 am Reason for Visit Admit Date Diarrhea July 15, 2024 3: 11pm Chronic kidney disease (CKD) July 3:11pm Essential (primary) hypertension July 15, 2024 3:11pm Hyperlipidemia July 15, 2024 3: 11pm Type 2 diabetes mellitus July 15 3:11pm Chronic combined systolic an d diastolic CHF (congestive heart failure) August 23, 2024 8:43am Essential (primary) hypertension 2024 8:43am Implantable cardioverter-defibrillator ( ICD) in situ August 23, 2024 8:43am GERD (gastroesophageal reflux disease) A pril 2024 9:23am Chronic fatigue October 13, 2024 9:23 am Chronic kidney disease (CKD) October 13, 2024 9:23am Essential (primary) hypertension October 132024 9:23am Type 2 diabetes mellitus October 13, 2024 9:23am Chief Complaint Admit Date 3 M FU October 13, 2024 9:23 am Pacer Check Remote November 29, 2024 2:30a m Pacer Check Remote December 06, 2024 1:55a m Pacer Check Remote December 10, 2024 2:45a m Pacer Check Remote December 17, 2024 1:41a m Reason for Visit Admit Date GERD (gastroesophageal reflux disease) A pril 2024 9:23am Chronic fatigue October 13, 2024 9:23 am Chronic kidney disease (CKD) October 13, 2024 9:23am Essential (primary) hypertension October 132024 9:23am Type 2 diabetes mellitus October 13, 2024 9:23am Chief Complaint Admit Date 3 M FU October 13, 2024 9:23 am Pacer Check Remote November 29, 2024 2:30a m Pacer Check Remote December 06, 2024 1:55a m Pacer Check Remote December 10, 2024 2:45a m Pacer Check Remote December 17, 2024 1:41a m Pacer Check Remote December 24, 2024 1:41 am Chief Complaint Admit Date 3 M FU October 13, 2024 9:23 am Pacer Check Remote November 29, 2024 2:30a m Pacer Check Remote December 06, 2024 1:55a m Pacer Check Remote December 10, 2024 2:45a m Pacer Check Remote December 17, 2024 1:41a m Pacer Check Remote December 24, 2024 1:41 am 3 M FU January 26, 2025 10:2 5am Chief Complaint Admit Date 3 M FU October 13, 2024 9:23 am Pacer Check Remote November 29, 2024 2:30a m Pacer Check Remote December 06, 2024 1:55a m Pacer Check Remote December 10, 2024 2:45a m Pacer Check Remote December 17, 2024 1:41a m Pacer Check Remote December 24, 2024 1:41 am Pacer Check Remote January 21, 2025 1:41 am 3 M FU January 26, 2025 10:2 5am Pacer Check Remote January 28, 2025 1:41 am Reason for Visit Admit Date GERD (gastroesophageal reflux disease) A pril 2024 9:23am Chronic fatigue October 13, 2024 9:23 am Chronic kidney disease (CKD) October 13, 2024 9:23am Essential (primary) hypertension October 132024 9:23am Type 2 diabetes mellitus October 13, 2024 9:23am Cataract January 26, 2025 10:2 5am Diarrhea January 26, 2025 10:2 5am Diastasis recti January 26, 2025 10:2 5am Essential (primary) hypertension January 262024 10:25am Type 2 diabetes mellitus January 26, 2025 10:25am Chief Complaint Admit Date Pacer Check Remote November 29, 2024 2:30a m Pacer Check Remote December 06, 2024 1:55a m Pacer Check Remote December 10, 2024 2:45a m Pacer Check Remote December 17, 2024 1:41a m Pacer Check Remote December 24, 2024 1:41 am Pacer Check Remote January 21, 2025 1:41 am 3 M FU January 26, 2025 10:2 5am Pacer Check Remote January 28, 2025 1:41 am 6 M FU February 15, 2025 8:4 9am Reason for Visit Admit Date Cataract January 26, 2025 10:2 5am Diarrhea January 26, 2025 10:2 5am Diastasis recti January 26, 2025 10:2 5am Essential (primary) hypertension January 262024 10:25am Type 2 diabetes mellitus January 26, 2025 10:25am Chronic kidney disease (CKD) February 15, 2025 8:49am Dilated cardiomyopathy February 15, 2025 8:49am Essential (primary) hypertension February 15, 2025 8:49am Hyperlipidemia February 15, 2025 8:4 9am Implantable cardioverter-defibrillator ( ICD) in situ February 15, 2025 8:49am Type 2 diabetes mellitus February 15 8:49am Hyperkalemia February 15, 2025 8:4 9am Chief Complaint Admit Date Pacer Check Remote November 29, 2024 2:30a m Pacer Check Remote December 06, 2024 1:55a m Pacer Check Remote December 10, 2024 2:45a m Pacer Check Remote December 17, 2024 1:41a m Pacer Check Remote December 24, 2024 1:41 am Pacer Check Remote January 21, 2025 1:41 am 3 M FU January 26, 2025 10:2 5am Pacer Check Remote January 28, 2025 1:41 am 6 M FU February 15, 2025 8:4 9am Pacer Check Remote February 18, 2025 1:4 2am Chief Complaint Admit Date Pacer Check Remote November 29, 2024 2:30a m Pacer Check Remote December 06, 2024 1:55a m Pacer Check Remote December 10, 2024 2:45a m Pacer Check Remote December 17, 2024 1:41a m Pacer Check Remote December 24, 2024 1:41 am Pacer Check Remote January 21, 2025 1:41 am 3 M FU January 26, 2025 10:2 5am Pacer Check Remote January 28, 2025 1:41 am 6 M FU February 15, 2025 8:4 9am Pacer Check Remote February 18, 2025 1:4 2am Pacer Check Remote February 28, 2025 2: 20am Additional Source Comments (unrecognized sect ion and content) No Status Records FoundNo Status Records FoundNo Status Records FoundNo Status Records FoundNo Status Records Found INFORMATION SOURCE (unrecogn ized section and content) DATE CREATED AUTHOR 11/12/2018 [facility] DATE CREATED AUTHOR AUTHOR'S ORGANIZ ATION 10/20/2022 [facility] DATE CREATED AUTHOR AUTHOR'S ORGANIZ ATION 12/22/2024 [facility] DATE CREATED AUTHOR AUTHOR'S ORGANIZ ATION 01/24/2025 [facility] DATE CREATED AUTHOR AUTHOR'S ORGANIZ ATION 02/28/2025 [facility] Goals (unrecognized section and content) Goals may be documented in a n alternate sectionGoals may be documented in an alternate sectionGoals may be documented in an alternate sectionGoals may be documented in an alternate sectionGoals may be documented in an alternate sectionGoals may be documented in an alternate sectionGoals may be documented in an alternate sectionGoals may be documented in an alternate sectionGoals may be documented in an alternate sectionGoals may be documented in an alternate section No data available for this sectionGoals may be documented in an alternate sectionGoals may be documented in an alternate sectionGoals may be documented in an alternate sectionGoals may be documented in an alternate sectionGoals may be documented in an alternate sectionGoals may be documented in an alternate sectionGoals may be documented in an alternate sectionGoals may be documented in an alternate sectionGoals may be documented in an alternate sectionGoals may be documented in an alternate sectionGoals may be documented in an alternate sectionGoals may be documented in an alternate sectionGoals may be documented in an alternate sectionGoals may be documented in an alternate sectionGoals may be documented in an alternate sectionGoals may be documented in an alternate sectionGoals may be documented in an alternate sectionGoals may be documented in an alternate sectionGoals may be documented in an alternate sectionGoals may be documented in an alternate sectionGoals may be documented in an alternate sectionGoals may be documented in an alternate sectionGoals may be documented in an alternate section Source Comments (unrecognize d section and content) In the event this informatio n is protected by the Federal Confidentiality of Alcohol and Drug Abuse Patient Records regulations: The Federal rules restrict any use of the information to criminally investigate or prosecute any alcohol or drug abuse patient.[facility] the event this information is protected by the Federal Confidentiality of Alcohol and Drug Abuse Patient Records regulations: The Federal rules restrict any use of the information to criminally investigate or prosecute any alcohol or drug abuse patient.[facility]In the event this information is protected by the Federal Confidentiality of Alcohol and Drug Abuse Patient Records regulations: The Federal rules restrict any use of the information to criminally investigate or prosecute any alcohol or drug abuse patient.[facility] HospitalIn the event this information is protected by the Federal Confidentiality of Alcohol and Drug Abuse Patient Records regulations: The Federal rules restrict any use of the information to criminally investigate or prosecute any alcohol or drug abuse patient.[facility] HospitalIn the event this information is protected by the Federal Confidentiality of Alcohol and Drug Abuse Patient Records regulations: The Federal rules restrict any use of the information to criminally investigate or prosecute any alcohol or drug abuse patient.[facility] HospitalIn the event this information is protected by the Federal Confidentiality of Alcohol and Drug Abuse Patient Records regulations: The Federal rules restrict any use of the information to criminally investigate or prosecute any alcohol or drug abuse patient.[facility] HospitalIn the event this information is protected by the Federal Confidentiality of Alcohol and Drug Abuse Patient Records regulations: The Federal rules restrict any use of the information to criminally investigate or prosecute any alcohol or drug abuse patient.[facility] HospitalIn the event this information is protected by the Federal Confidentiality of Alcohol and Drug Abuse Patient Records regulations: The Federal rules restrict any use of the information to criminally investigate or prosecute any alcohol or drug abuse patient.[facility] HospitalIn the event this information is protected by the Federal Confidentiality of Alcohol and Drug Abuse Patient Records regulations: The Federal rules restrict any use of the information to criminally investigate or prosecute any alcohol or drug abuse patient.[facility] HospitalIn the event this information is protected by the Federal Confidentiality of Alcohol and Drug Abuse Patient Records regulations: The Federal rules restrict any use of the information to criminally investigate or prosecute any alcohol or drug abuse patient.[facility] HospitalIn the event this information is protected by the Federal Confidentiality of Alcohol and Drug Abuse Patient Records regulations: The Federal rules restrict any use of the information to criminally investigate or prosecute any alcohol or drug abuse patient.[facility] HospitalIn the event this information is protected by the Federal Confidentiality of Alcohol and Drug Abuse Patient Records regulations: The Federal rules restrict any use of the information to criminally investigate or prosecute any alcohol or drug abuse patient.[facility] HospitalIn the event this information is protected by the Federal Confidentiality of Alcohol and Drug Abuse Patient Records regulations: The Federal rules restrict any use of the information to criminally investigate or prosecute any alcohol or drug abuse patient.[facility] HospitalIn the event this information is protected by the Federal Confidentiality of Alcohol and Drug Abuse Patient Records regulations: The Federal rules restrict any use of the information to criminally investigate or prosecute any alcohol or drug abuse patient.[facility] HospitalIn the event this information is protected by the Federal Confidentiality of Alcohol and Drug Abuse Patient Records regulations: The Federal rules restrict any use of the information to criminally investigate or prosecute any alcohol or drug abuse patient.[facility] HospitalIn the event this information is protected by the Federal Confidentiality of Alcohol and Drug Abuse Patient Records regulations: The Federal rules restrict any use of the information to criminally investigate or prosecute any alcohol or drug abuse patient.[facility] Reason for Visit (unrecogniz ed section and content) Reason Comments routine eye exam Reason Comments Diabetic Eye Exam Type 2 NIDDM Reason Comments Cataract Evaluation Reason Onset Date Comments Refill Request 08/19/2024 Reason Comments Consult Reason Onset Date Comments Refill Request 09/02/2024 Reason Comments Appointment Surgery Arrival Reason Comments Post-op (Ophthalmology) Right Eye Reason Comments Post-op (Ophthalmology) Right Eye DOS right eye (Cataract) Reason Comments Post-op (Ophthalmology) Right Eye s/p ca taract extraction with intraocular lens implantation right eye 09/06/2024 Reason Comments Eye Itching Both Eyes Reason Comments Post-op (Ophthalmology) Left Eye S/P: ca taract extraction OS 12/21/2024 Reason Onset Date Comments Refill Request 12/23/2024 Reason Comments Post-op (Ophthalmology) Left Eye Care Teams (unrecognized sec tion and content) Lead Python Developer Relationship Specialty Start Date End Date Shane Schreiber MD PCP - General Internal Medicine 08/04/19 Team Status: Active Member Role Status Dates Dr. Shane Schreiber MD Primary Care Provider Active Team Status: Inactive Member Role Status Dates Dr. Shane Schreiber MD Primary Care Provider, Refer ring Provider Active Era Otero Attending Provider Active Team Status: Inactive Member Role Status Dates Dr. Shane Schreiber MD Primary Care P rachele, Attending Provider, Referring Provider Active Team Status: Inactive Member Role Status Dates Dr. Shane Schreiber MD Primary Care Provider Active Era Otero Active Dr. Dante Hilliard MD Attending Provider, Referring Pro vider Active Team Status: Inactive Member Role Status Dates Dr. Shane Schreiber MD Primary Care Provider Active Dr. Marj Poe MD Attending Provider, Referri ng Provider Active Team Status: Inactive Member Role Status Dates Dr. Shane Schreiber MD Primary Care Provider, Refer ring Provider Active Memo Gannon CHECKOUT OPERATOR, CHECKOUT OPERATOR-C Attending Provider Active Team Status: Inactive Member Role Status Dates Dr. Shane Schreiber MD Attending Provider, Referrin g Provider Active No Primary Care Physician Primary Care Provider Active Team Status: Active Member Role Status Dates No Primary Care Physician Primary Care Provider Active Dr. Dante Hilliard MD Attending Provider Active Team Status: Active Member Role Status Dates No Primary Care Physician Primary Care Provider Active Memo Gannon CHECKOUT OPERATOR, CHECKOUT OPERATOR-C Attending Provider Active Team Status: Inactive Member Role Status Dates Memo Gannon CHECKOUT OPERATOR, CHECKOUT OPERATOR-C Attending Provider Active No Primary Care Physician Primary Care Provider Active Team Status: Inactive Member Role Status Dates Dr. Shane Schreiber MD Primary Care Provider Active Dr. Burak Gtz MD Attending Provider, Referr ing Provider Active Team Status: Inactive Member Role Status Dates Dr. Shane Schreiber MD Primary Care Provider Active Dr. Burak Gtz MD Attending Provider Active Team Status: Inactive Member Role Status Dates No Primary Care Physician Referring Provider Active Dr. Shane Schreiber MD Primary Care Provider, Atten ding Provider Active Team Status: Inactive Member Role Status Dates Dr. Shane Schreiber MD Primary Care Provider, Refer ring Provider Active Dr. Dante Hilliard MD Active Memo Gannon CHECKOUT OPERATOR, CHECKOUT OPERATOR-C Attending Provider Active Team Status: Active Member Role Status Dates Dr. Shane Schreiber MD Primary Care Provider Active Shell Moreau RN Attending Provider Active Team Status: Inactive Member Role Status Dates Dr. Shane Schreiber MD Primary Care Provider Active Dr. Dante Hilliard MD Attending Provider, Referring Pro vider Active Team Status: Inactive Member Role Status Dates Dr. Shane Schreiber MD Primary Care Provider Active Dr. Dante Hilliard MD Attending Provider Active Team Status: Inactive Member Role Status Dates Dr. Shane Schreiber MD Primary Care Provider Active Jocelyn Mendoza Attending Provider, Referring Provide r Active Team Status: Inactive Member Role Status Dates Dr. Shane Schreiber MD Primary Care Provider Active Memo Gannon CHECKOUT OPERATOR, CHECKOUT OPERATOR-C Attending Provider, Referring Pro vider Active Lead Python Developer Relationship Specialty Start Date End Date Shane Schreiber MD PCP - General Internal Medicine 08/04/19 Lead Python Developer Relationship Specialty Start Date End Date Shane Schreiber MD PCP - General Internal Medicine 08/04/19 Lead Python Developer Relationship Specialty Start Date End Date Shane Schreiber MD [address] [place] [address] PCP - General Internal Medicine 07/28/24 Dante Hilliard MD [address] [place] [address] Cardiology 07/28/24 Lead Python Developer Relationship Specialty Start Date End Date Shane Schreiber MD [address] [place] [address] PCP - General Internal Medicine 07/28/24 Dante Hilliard MD [address] [place] [address] Cardiology 07/28/24 Lead Python Developer Relationship Specialty Start Date End Date Shane Schreiber MD [address] [place] [address] PCP - General Internal Medicine 07/28/24 Dante Hilliard MD [address] [place] [address] Cardiology 07/28/24 Lead Python Developer Relationship Specialty Start Date End Date Shane Schreiber MD [address] [place] [address] PCP - General Internal Medicine 07/28/24 Dante Hilliard MD [address] [place] [address] Cardiology 07/28/24 Lead Python Developer Relationship Specialty Start Date End Date Shane Schreiber MD [address] [place] [address] PCP - General Internal Medicine 07/28/24 Dante Hilliard MD [address] [place] [address] Cardiology 07/28/24 Lead Python Developer Relationship Specialty Start Date End Date Shane Schreiber MD [address] [place] [address] PCP - General Internal Medicine 07/28/24 Dante Hilliard MD [address] [place] [address] Cardiology 07/28/24 Lead Python Developer Relationship Specialty Start Date End Date Shane Schreiber MD [address] [place] [address] PCP - General Internal Medicine 07/28/24 Dante Hilliard MD [address] [place] [address] Cardiology 07/28/24 Team Status: Inactive Member Role Status Dates Dr. Shane Schreiber MD Primary Care Provider Active Start: June 15, 2024 End: June 15, 2024 Dr. Dante Hilliard MD Attending Provider Active S tart: June 15, 2024 End: June 15, 2024 Dr. Dante Hilliard MD Referring Provider Active S tart: June 15, 2024 End: June 15, 2024 Team Status: Inactive Member Role Status Dates Dr. Shane Schreiber MD Primary Care Provider Active Start: June 22, 2024 End: June 22, 2024 Jocelyn [place] Attending Provider Active Start : June 22, 2024 End: June 22, 2024 Jocelyn [place] Referring Provider Active Start : June 22, 2024 End: June 22, 2024 Team Status: Inactive Member Role Status Dates Dr. Shane Schreiber MD Primary Care Provider Active Start: July 06, 2024 End: July 06, 2024 Dr. Dante Hilliard MD Attending Provider Active S tart: July 06, 2024 End: July 06, 2024 Dr. Dante Hilliard MD Referring Provider Active S tart: July 06, 2024 End: July 06, 2024 Team Status: Inactive Member Role Status Dates Dr. Shane Schreiber MD Primary Care Provider Active Start: July 15, 2024 End: July 15, 2024 Dr. Shane Schreiber MD Attending Provider Active Start: July 15, 2024 End: July 15, 2024 Dr. Shane Schreiber MD Referring Provider Active Start: July 15, 2024 End: July 15, 2024 Team Status: Inactive Member Role Status Dates Dr. Shane Schreibre MD Primary Care Provider Active Start: July 20, 2024 End: July 20, 2024 Dr. Dante Hilliard MD Attending Provider Active S tart: July 20, 2024 End: July 20, 2024 Dr. Dante Hilliard MD Referring Provider Active S tart: July 20, 2024 End: July 20, 2024 Team Status: Inactive Member Role Status Dates Dr. Shane Schreiber MD Primary Care Provider Active Start: July 23, 2024 End: July 23, 2024 Dr. Marj oPe MD Attending Provider Active Start: July 23, 2024 End: July 23, 2024 Dr. Marj Poe MD Referring Provider Active Start: July 23, 2024 End: July 23, 2024 Team Status: Inactive Member Role Status Dates Dr. Shane Schreiber MD Primary Care Provider Active Start: July 27, 2024 End: July 27, 2024 Dr. Dante Hilliard MD Attending Provider Active S tart: July 27, 2024 End: July 27, 2024 Dr. Dante Hilliard MD Referring Provider Active S tart: July 27, 2024 End: July 27, 2024 Team Status: Inactive Member Role Status Dates Dr. Shane Schreiber MD Primary Care Provider Active Start: August 03, 2024 End: August 03, 2024 Dr. Dante Hilliard MD Attending Provider Active S tart: August 03, 2024 End: August 03, 2024 Dr. Dante Hilliard MD Referring Provider Active S tart: August 03, 2024 End: August 03, 2024 Team Status: Inactive Member Role Status Dates Dr. Shane Schreiber MD Primary Care Provider Active Start: August 10, 2024 End: August 10, 2024 Dr. Dante Hilliard MD Attending Provider Active S tart: August 10, 2024 End: August 10, 2024 Dr. Dante Hilliard MD Referring Provider Active S tart: August 10, 2024 End: August 10, 2024 Team Status: Inactive Member Role Status Dates Dr. Shane Schreiber MD Primary Care Provider Active Start: August 16, 2024 End: August 16, 2024 Dr. Marj Poe MD Attending Provider Active Start: August 16, 2024 End: August 16, 2024 Dr. Marj Poe MD Referring Provider Active Start: August 16, 2024 End: August 16, 2024 Team Status: Inactive Member Role Status Dates Dr. Shane Schreiber MD Primary Care Provider Active Start: August 23, 2024 End: August 23, 2024 Dr. Shane Schreiber MD Referring Provider Active Start: August 23, 2024 End: August 23, 2024 Lorenza Bingham PA, PA Attending Provider Active Start: August 23, 2024 End: August 23, 2024 Team Status: Inactive Member Role Status Dates Dr. Shane Schreiber MD Primary Care Provider Active Start: August 30, 2024 End: August 30, 2024 Dr. Dante Hilliard MD Attending Provider Active S tart: August 30, 2024 End: August 30, 2024 Dr. Dante Hilliard MD Referring Provider Active S tart: August 30, 2024 End: August 30, 2024 Team Status: Inactive Member Role Status Dates Dr. Shane Schreiber MD Primary Care Provider Active Start: September 30, 2024 End: September 30, 2024 Jocelyn [place] Attending Provider Active Start : September 30, 2024 End: September 30, 2024 Jocelyn [place] Referring Provider Active Start : September 30, 2024 End: September 30, 2024 Team Status: Inactive Member Role Status Dates Dr. Shane Schreiber MD Primary Care Provider Active Start: October 13, 2024 End: October 13, 2024 Dr. Shane Schreiber MD Attending Provider Active Start: October 13, 2024 End: October 13, 2024 Dr. Shane Schreiber MD Referring Provider Active Start: October 13, 2024 End: October 13, 2024 Lead Python Developer Relationship Specialty Start Date End Date Shane Schreiber MD [address] [place], [place] [id number] PCP - General Internal Medicine 07/28/24 Dante Hilliard MD [address] [place], [place] [id number] Cardiology 07/28/24 Lead Python Developer Relationship Specialty Start Date End Date Shane Schreiber MD [address] [place] [id number] PCP - General Internal Medicine 07/28/24 Dante Hilliard MD [address] [place] [address] Cardiology 07/28/24 Lead Python Developer Relationship Specialty Start Date End Date Shane Schreiber MD [address] [place], [place] [id number] PCP - General Internal Medicine 07/28/24 Dante Hilliard MD [address] [place] [address] Cardiology 07/28/24 Team Status: Inactive Member Role Status Dates Dr. Shane Schreiber MD Primary Care Provider Active Start: November 29, 2024 End: November 29, 2024 Dr. Dante Hilliard MD Attending Provider Active S tart: November 29, 2024 End: November 29, 2024 Team Status: Inactive Member Role Status Dates Dr. Shane Schreiber MD Primary Care Provider Active Start: December 06, 2024 End: December 06, 2024 Dr. Dante Hilliard MD Attending Provider Active S tart: December 06, 2024 End: December 06, 2024 Team Status: Inactive Member Role Status Dates Dr. Shane Schreiber MD Primary Care Provider Active Start: December 10, 2024 End: December 10, 2024 Dr. Dante Hilliard MD Attending Provider Active S tart: December 10, 2024 End: December 10, 2024 Team Status: Inactive Member Role Status Dates Dr. Shane Schreiber MD Primary Care Provider Active Start: December 17, 2024 End: December 17, 2024 Dr. Dante Hilliard MD Attending Provider Active S tart: December 17, 2024 End: December 17, 2024 Team Status: Active Member Role/Relationship Status Dates Dr. Shane Schreiber MD Primary Care Provider Active Team Status: Inactive Member Role/Relationship Status Dates Dr. Shane Schreiber MD Primary Care Provider Active Start: September 30, 2024 End: September 30, 2024 Jocelyn Mendoza Attending Provider Active Start : September 30, 2024 End: September 30, 2024 Jocelyn Mendoza Referring Provider Active Start : September 30, 2024 End: September 30, 2024 Team Status: Inactive Member Role/Relationship Status Dates Dr. Shane Schreiber MD Primary Care Provider Active Start: October 13, 2024 End: October 13, 2024 Dr. Shane Schreiber MD Attending Provider Active Start: October 13, 2024 End: October 13, 2024 Dr. Shane Schreiber MD Referring Provider Active Start: October 13, 2024 End: October 13, 2024 Team Status: Inactive Member Role/Relationship Status Dates Dr. Shane Schreiber MD Primary Care Provider Active Start: October 13, 2024 End: October 13, 2024 Dr. Shane Schreiber MD Attending Provider Active Start: October 13, 2024 End: October 13, 2024 Dr. Shane Schreiber MD Referring Provider Active Start: October 13, 2024 End: October 13, 2024 Team Status: Inactive Member Role/Relationship Status Dates Dr. Shane Schreiber MD Primary Care Provider Active Start: November 29, 2024 End: November 29, 2024 Dr. Dante Hilliard MD Attending Provider Active S tart: November 29, 2024 End: November 29, 2024 Team Status: Inactive Member Role/Relationship Status Dates Dr. Shane Schreiber MD Primary Care Provider Active Start: December 06, 2024 End: December 06, 2024 Dr. Dante Hilliard MD Attending Provider Active S tart: December 06, 2024 End: December 06, 2024 Team Status: Inactive Member Role/Relationship Status Dates Dr. Shane Schreiber MD Primary Care Provider Active Start: December 10, 2024 End: December 10, 2024 Dr. Dante Hilliard MD Attending Provider Active S tart: December 10, 2024 End: December 10, 2024 Team Status: Inactive Member Role/Relationship Status Dates Dr. Shane Schreiber MD Primary Care Provider Active Start: December 17, 2024 End: December 17, 2024 Dr. Dante Hilliard MD Attending Provider Active S tart: December 17, 2024 End: December 17, 2024 Dr. Dante Hilliard MD Referring Provider Active S tart: December 17, 2024 End: December 17, 2024 Team Status: Inactive Member Role/Relationship Status Dates Dr. Shane Schreiber MD Primary Care Provider Active Start: December 24, 2024 End: December 24, 2024 Dr. Dante Hilliard MD Attending Provider Active S tart: December 24, 2024 End: December 24, 2024 Lead Python Developer Relationship Specialty Start Date End Date Shane Schreiber MD [address] [place], [place] [id number] PCP - General Internal Medicine 07/28/24 Dante Hilliard MD [address] [place], [place] [id number] Cardiology 07/28/24 Team Status: Inactive Member Role/Relationship Status Dates Dr. Shane Schreiber MD Primary Care Provider Active Start: December 06, 2024 End: December 06, 2024 Dr. Dante Hilliard MD Attending Provider Active S tart: December 06, 2024 End: December 06, 2024 Dr. Dante Hilliard MD Referring Provider Active S tart: December 06, 2024 End: December 06, 2024 Team Status: Inactive Member Role/Relationship Status Dates Dr. Shane Schreiber MD Primary Care Provider Active Start: December 10, 2024 End: December 10, 2024 Dr. Dante Hilliard MD Attending Provider Active S tart: December 10, 2024 End: December 10, 2024 Dr. Dante Hilliard MD Referring Provider Active S tart: December 10, 2024 End: December 10, 2024 Team Status: Inactive Member Role/Relationship Status Dates Dr. Shane Schreiber MD Primary Care Provider Active Start: December 24, 2024 End: December 24, 2024 Dr. Dante Hilliard MD Attending Provider Active S tart: December 24, 2024 End: December 24, 2024 Dr. Dante Hilliard MD Referring Provider Active S tart: December 24, 2024 End: December 24, 2024 Team Status: Inactive Member Role/Relationship Status Dates Dr. Shane Schreiber MD Primary Care Provider Active Start: January 26, 2025 End: January 26, 2025 Dr. Shane Schreiber MD Attending Provider Active Start: January 26, 2025 End: January 26, 2025 Dr. Shane Schreiber MD Referring Provider Active Start: January 26, 2025 End: January 26, 2025 Team Status: Inactive Member Role/Relationship Status Dates Dr. Shane Schreiber MD Primary Care Provider Active Start: October 13, 2024 End: October 13, 2024 Dr. Shane Schreiber MD Attending Provider Active Start: October 13, 2024 End: October 13, 2024 Dr. Shane Schreiber MD Referring Provider Active Start: October 13, 2024 End: October 13, 2024 Team Status: Inactive Member Role/Relationship Status Dates Dr. Shane Schreiber MD Primary Care Provider Active Start: November 29, 2024 End: November 29, 2024 Dr. Dante Hilliard MD Attending Provider Active S tart: November 29, 2024 End: November 29, 2024 Team Status: Inactive Member Role/Relationship Status Dates Dr. Shane Schreiber MD Primary Care Provider Active Start: December 06, 2024 End: December 06, 2024 Dr. Dnate Hilliard MD Attending Provider Active S tart: December 06, 2024 End: December 06, 2024 Dr. Dante Hilliard MD Referring Provider Active S tart: December 06, 2024 End: December 06, 2024 Team Status: Inactive Member Role/Relationship Status Dates Dr. Shane Schreiber MD Primary Care Provider Active Start: December 10, 2024 End: December 10, 2024 Dr. Dante Hilliard MD Attending Provider Active S tart: December 10, 2024 End: December 10, 2024 Dr. Dante Hilliard MD Referring Provider Active S tart: December 10, 2024 End: December 10, 2024 Team Status: Inactive Member Role/Relationship Status Dates Dr. Shane Schreiber MD Primary Care Provider Active Start: December 17, 2024 End: December 17, 2024 Dr. Dante Hilliard MD Attending Provider Active S tart: December 17, 2024 End: December 17, 2024 Dr. Dante Hilliard MD Referring Provider Active S tart: December 17, 2024 End: December 17, 2024 Team Status: Inactive Member Role/Relationship Status Dates Dr. Shane Schreiber MD Primary Care Provider Active Start: December 24, 2024 End: December 24, 2024 Dr. Dante Hilliard MD Attending Provider Active S tart: December 24, 2024 End: December 24, 2024 Dr. Dante Hilliard MD Referring Provider Active S tart: December 24, 2024 End: December 24, 2024 Team Status: Inactive Member Role/Relationship Status Dates Dr. Shane Schreiber MD Primary Care Provider Active Start: January 21, 2025 End: January 21, 2025 Dr. Dante Hilliard MD Attending Provider Active S tart: January 21, 2025 End: January 21, 2025 Team Status: Inactive Member Role/Relationship Status Dates Dr. Shane Schreiber MD Primary Care Provider Active Start: January 28, 2025 End: January 28, 2025 Dr. Dante Hilliard MD Attending Provider Active S tart: January 28, 2025 End: January 28, 2025 Team Status: Inactive Member Role/Relationship Status Dates Dr. Shane Schreiber MD Primary Care Provider Active Start: November 29, 2024 End: November 29, 2024 Dr. Dante Hillaird MD Attending Provider Active S tart: November 29, 2024 End: November 29, 2024 Team Status: Inactive Member Role/Relationship Status Dates Dr. Shane Schreiber MD Primary Care Provider Active Start: December 06, 2024 End: December 06, 2024 Dr. Dante Hilliard MD Attending Provider Active S tart: December 06, 2024 End: December 06, 2024 Dr. Dante Hilliard MD Referring Provider Active S tart: December 06, 2024 End: December 06, 2024 Team Status: Inactive Member Role/Relationship Status Dates Dr. Shane Schreiber MD Primary Care Provider Active Start: December 10, 2024 End: December 10, 2024 Dr. Dante Hilliard MD Attending Provider Active S tart: December 10, 2024 End: December 10, 2024 Dr. Dante Hilliard MD Referring Provider Active S tart: December 10, 2024 End: December 10, 2024 Team Status: Inactive Member Role/Relationship Status Dates Dr. Shane Schreiber MD Primary Care Provider Active Start: December 17, 2024 End: December 17, 2024 Dr. Dante Hilliard MD Attending Provider Active S tart: December 17, 2024 End: December 17, 2024 Dr. Dante Hilliard MD Referring Provider Active S tart: December 17, 2024 End: December 17, 2024 Team Status: Inactive Member Role/Relationship Status Dates Dr. Shane Schreiber MD Primary Care Provider Active Start: December 24, 2024 End: December 24, 2024 Dr. Dante Hilliard MD Attending Provider Active S tart: December 24, 2024 End: December 24, 2024 Dr. Dante Hilliard MD Referring Provider Active S tart: December 24, 2024 End: December 24, 2024 Team Status: Inactive Member Role/Relationship Status Dates Dr. Shane Schreiber MD Primary Care Provider Active Start: January 21, 2025 End: January 21, 2025 Dr. Dante Hilliard MD Attending Provider Active S tart: January 21, 2025 End: January 21, 2025 Dr. Dante Hilliard MD Referring Provider Active S tart: January 21, 2025 End: January 21, 2025 Team Status: Inactive Member Role/Relationship Status Dates Dr. Shane Schreiber MD Primary Care Provider Active Start: January 26, 2025 End: January 26, 2025 Dr. Shane Schreiber MD Attending Provider Active Start: January 26, 2025 End: January 26, 2025 Dr. Shane Schreiber MD Referring Provider Active Start: January 26, 2025 End: January 26, 2025 Team Status: Inactive Member Role/Relationship Status Dates Dr. Shane Schreiber MD Primary Care Provider Active Start: January 28, 2025 End: January 28, 2025 Dr. Dante Hilliard MD Attending Provider Active S tart: January 28, 2025 End: January 28, 2025 Team Status: Active Member Role/Relationship Status Dates Dr. Shane Schreiber MD Primary Care Provider Active Start: February 10, 2025 Dr. Marj Poe MD Attending Provider Active Start: February 10, 2025 Dr. Marj Poe MD Referring Provider Active Start: February 10, 2025 Team Status: Active Member Role/Relationship Status Dates Dr. Shane Schreiber MD Primary Care Provider Active Start: February 14, 2025 Dr. Marj Poe MD Attending Provider Active Start: February 14, 2025 Team Status: Inactive Member Role/Relationship Status Dates Dr. Shane Schreiber MD Primary Care Provider Active Start: February 15, 2025 End: February 15, 2025 Dr. Shane Schreiber MD Referring Provider Active Start: February 15, 2025 End: February 15, 2025 Memo Gannon CHECKOUT OPERATOR, CHECKOUT OPERATOR-C Attending Provider Active S tart: February 15, 2025 End: February 15, 2025 Team Status: Inactive Member Role/Relationship Status Dates Dr. Shane Schreiber MD Primary Care Provider Active Start: February 10, 2025 End: February 10, 2025 Dr. Marj Poe MD Attending Provider Active Start: February 10, 2025 End: February 10, 2025 Dr. Marj Poe MD Referring Provider Active Start: February 10, 2025 End: February 10, 2025 Team Status: Inactive Member Role/Relationship Status Dates Dr. Shane Schreiber MD Primary Care Provider Active Start: February 14, 2025 End: February 14, 2025 Dr. Marj Poe MD Attending Provider Active Start: February 14, 2025 End: February 14, 2025 Team Status: Inactive Member Role/Relationship Status Dates Dr. Shane Schreiber MD Primary Care Provider Active Start: January 28, 2025 End: January 28, 2025 Dr. Dante Hilliard MD Attending Provider Active S tart: January 28, 2025 End: January 28, 2025 Dr. Dante Hilliard MD Referring Provider Active S tart: January 28, 2025 End: January 28, 2025 Team Status: Inactive Member Role/Relationship Status Dates Dr. Shane Schreiber MD Primary Care Provider Active Start: February 18, 2025 End: February 18, 2025 Dr. Dante Hilliard MD Attending Provider Active S tart: February 18, 2025 End: February 18, 2025 Team Status: Inactive Member Role/Relationship Status Dates Dr. Shane Schreiber MD Primary Care Provider Active Start: February 28, 2025 End: February 28, 2025 Dr. Dante Hilliard MD Attending Provider Active S tart: February 28, 2025 End: February 28, 2025 FOR RECORDS PERTAINING TO PATIENTS WHO ARE OR HAVE BEEN ENROLLED IN A CHEMICAL DEPENDENCY/SUBSTANCEABUSE PROGRAM, SOME INFORMATION MAY BE OMITTED. This clinical summary was aggregated from multiple sources. Caution should be exercised in using it in the provision of clinical care. This summary normalizes information from multiple sources, and as a consequence, information in this document may materially change the coding, format and clinical context of patient data. In addition, data may be omitted in some cases. CLINICAL DECISIONS SHOULD BE BASED ON THE PRIMARY CLINICAL RECORDS. [facility] [employer] provides no warranty or guarantee of the accuracy or completeness of information in this document.
--- NOTE | 2025-03-05 07:50 | ECHOD_ITS ---
Reason For Study Reason For Study: CHF Procedure This was a 2D Doppler, Color Flow transthoracic echocardiogram. Exam performed in department. Left Ventricle Normal LV size. The left ventricular ejection fraction is 50 %. No regional wall motion abnormalities noted. Right Ventricle Normal RV size. ICD or pacer leads identified within the right ventricle. Normal systolic function. Atria Normal left atrium. Normal right atrium. Mitral Valve Normal mitral valve. Tricuspid Valve Normal tricuspid valve. Mild tricuspid valve insufficiency. Pulmonary artery systolic pressure is 20 mmHg. Aortic Valve Trisinus/trileaflet aortic valve. Moderate focal aortic valve calcification. Pulmonic Valve Normal pulmonic valve. Great Vessels Normal aortic root. The pulmonary artery is normal size. Inferior vena cava collapse with respiration. Pericardium/Pleural No pericardial effusion. MMode/2D Measurements & Calculations LVIDd: 5.2 cm IVSd: 0.88 cm Ao root diam: 3.8 cm LVIDs: 3.9 cm LVPWd: 0.86 cm RVDd: 3.4 cm FS: 25.3 % LAV(MOD-sp2): 46.7 ml LVAd ap4: 31.2 cm2 LVAd ap2: 30.1 cm2 LVLd ap4: 8.2 cm LVLd ap2: 8.4 cm EDV(MOD-sp4): 96.5 ml EDV(MOD-sp2): 88.5 ml EDV(sp4-el): 100.6 ml EDV(sp2-el): 92.3 ml LVAs ap4: 19.9 cm2 LVAs ap2: 17.7 cm2 LVLs ap4: 7.3 cm LVLs ap2: 6.9 cm ESV(MOD-sp4): 45.6 ml ESV(MOD-sp2): 38.0 ml ESV(sp4-el): 46.2 ml ESV(sp2-el): 38.7 ml EF(MOD-sp4): 52.8 % EF(MOD-sp2): 57.1 % EF(sp4-el): 54.1 % SV(MOD-sp4): 50.9 ml SV(MOD-sp2): 50.6 ml SV(sp4-el): 54.4 ml SI(MOD-sp4): 23.2 ml/m2 SI(MOD-sp2): 23.0 ml/m2 LA dimension(2D): 4.3 cm TAPSE: 2.2 cm Time Measurements MV dec time: 0.21 sec Doppler Measurements & Calculations MV E max allan: 108.2 cm/sec Lat Peak E' Allan: 9.6 cm/sec Med Peak E' Allan: 6.6 cm/sec MV A max allan: 68.7 cm/sec E/E' lat: 11.2 E/E' med: 16.3 MV E/A: 1.6 MV V2 max: 120.5 cm/sec MV P1/2t max allan: 128.7 cm/sec Ao V2 max: 250.1 cm/sec MV max P.8 mmHg MV P1/2t: 79.7 msec Ao max P.1 mmHg MV V2 mean: 62.7 cm/sec MV dec slope: 473.1 cm/sec2 Ao V2 mean: 178.0 cm/sec MV mean P.9 mmHg Ao mean P.2 mmHg MV V2 VTI: 32.9 cm MVA(P1/2t): 2.8 cm2 Ao V2 VTI: 54.4 cm AV (velocity ratio): 0.26 AI max allan: 358.6 cm/sec LV V1 max: 66.4 cm/sec PA V2 max: 99.6 cm/sec AI max P.5 mmHg LV V1 max P.8 mmHg PA V2 mean: 61.1 cm/sec AI dec slope: 162.7 cm/sec2 LV V1 mean P.98 mmHg PA V2 VTI: 18.0 cm AI P1/2t: 645.4 msec LV V1 mean: 47.3 cm/sec LV V1 VTI: 14.0 cm TR max allan: 210.2 cm/sec TR max P.7 mmHg ECHO/Echo Complete Interpretation Summary Normal LV size. The left ventricular ejection fraction is 50 %. No regional wall motion abnormalities noted. ICD or pacer leads identified within the right ventricle. The global longitudinal strain is moderately abnormal. The global longitudinal strain = -14% (abnormal). Ordering Physician: Memo Gannon Referring Physician: Josh Schreiber Performed By: Kristen Harper, AMY, RVT
== END | disposition home or self-care (01) ==
LOC: CVS 07:38
PROVIDERS: PCP Internal Medicine; Referring Provider Nurse Practitioner Family; Visit Provider Nurse Practitioner Family
DX: I50.42 Chronic combined systolic (congestive) and diastolic (congestive) heart failure (principal)
CPT/HCPCS: 93306

== ENCOUNTER → 2025-03-10 | Outpatient (CLI) | payer MEDICARE, OTHER, SELFPAY | END | disposition home or self-care (01) | LOC: LABSPEC 14:44 | PROVIDERS: PCP Internal Medicine; Referring Provider Urology; Visit Provider Urology | DX: C61 Malignant neoplasm of prostate (principal) | CPT/HCPCS: 87086; 87088; 87186 ==

== ENCOUNTER → 2025-06-27 | Outpatient (CLI) | payer MEDICARE, OTHER, SELFPAY ==
[2025-06-27 12:47] LABS: PSA,Total- Diagnostic 0.95 ng/mL (0.00-4.00)
== END | disposition home or self-care (01) ==
LOC: LAB 11:12
PROVIDERS: PCP Internal Medicine; Referring Provider Urology; Visit Provider Urology
DX: C61 Malignant neoplasm of prostate (principal)
CPT/HCPCS: 36415; 84153